=== PATIENT | male | born 1935 | race Caucasian/White ===

== ENCOUNTER 2023-02-03 19:02 | Outpatient (CLI) | payer MEDICARE, BC, SELFPAY | END 2023-02-03 19:03 | disposition home or self-care (01) | LOC: AMB 02-05 06:35 | PROVIDERS: PCP Surgery; Visit Provider Emergency Medicine | DX: R06.09 Other forms of dyspnea (principal) | CPT/HCPCS: A0425; A0427 ==

== ENCOUNTER 2023-02-03 19:27 | Emergency (ER) | payer MEDICARE, BC, SELFPAY ==
[2023-02-03] VITALS (8 sets, daily range): BP systolic 107–134; BP diastolic 54–96; PULSE 75–93; RESP 16; TEMP 36.7; O2SAT 88–99; BMI 28.1
--- NOTE | 2023-02-03 19:28 | PC.NURSE ---
at for initial exam.
--- NOTE | 2023-02-03 19:42 | CRLHL7_ITS ---
For Patients: As a result of the Cures Act, medical imaging exams and procedure reports are released immediately into your electronic medical record. You may view this report before your referring provider. If you have questions, please contact your health care provider. INDICATION: Shortness of breath. TECHNIQUE: Chest 1 view. COMPARISON: March 07, 2019. FINDINGS: Cardiovascular and mediastinum: Cardiomediastinal silhouette is within normal limits. Left chest wall pacer with leads extending to the right atrium and ventricle. Calcific atherosclerosis of the aorta. Lungs and pleural spaces: Bibasilar linear opacity likely atelectasis. Mildly low lung volumes. No evidence of pleural effusion. No pneumothorax identified. Bones and soft tissues: Unremarkable for age. IMPRESSION: No acute cardiopulmonary process identified. No significant interval change. Dictated by Devante Martinez MD @ 02/03/2023 8:48:12 PM (Electronically Signed)
[2023-02-03 20:10] LABS: HCO3 VBG 29 mmol/L (21-28); PCO2 VBG 32 mmHG (40-50); PO2 VBG 29.5 mmHG (25-47); pH VBG 7.564 (7.32-7.43)
[2023-02-03 20:11] LABS: Lactate Sepsis w/Reflex* 3.2 mmol/L (0.5-1.9)
--- NOTE | 2023-02-03 20:11 | ED_ITS ---
HPI - General Adult General Date Seen: 02/03/23 Chief complaint: Back Injury/Pain Stated complaint: Chest pain Time Seen by Provider: 02/03/23 19:31 Source: patient, EMS and old records reviewed Mode of arrival: EMS Limitations: no limitations History of Present Illness HPI narrative: Patient is an 87-year-old male who presents via EMS for shortness of breath. His daughter or granddaughter called 911 secondary to shortness of breath. He says that after the paramedics got there he did develop some right sided back pain which was not pleuritic. Medics reported a blood pressure in the right arm of 120 and in the left of 160 systolic. He has not had fever cough extremity swelling or pain. He tells me that he was hospitalized last week at [facility] for shortness of breath. He does have a history of he says a heart attack associated with a bout of pneumonia. He does not have any stents and has not had cardiac surgery aside from pacemaker placement. He does have a history of atrial fibrillation and is maintained on Xarelto. 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 He says since starting on that medication he has been significantly better, in fact says it was like changing. However over the past couple of months he says he has been having bouts of shortness of breath again. He says last week he had a coronary CT after troponins were elevated for about 24 hours, they stabilized at that time any says that the coronary CT was unchanged and so ultimately they decided that his heart was okay. 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 He has remote history of smoking, quit 50 years ago. Has a history of bronchiectasis and pulmonary asbestosis. Allergies reviewed. Related Data Home Medications Medication Instructions Recorded Confirmed albuterol sulfate 90 mcg/actuation inhalation 02/03/23 aerosol inhaler budesonide 0.25 mg/2 mL suspension mg 02/03/23 for nebulization diltiazem HCl 120 mg 120 mg PO DAILY 02/03/23 02/03/23 capsule,extended release 24 hr finasteride 5 mg tablet 5 mg PO QAM 02/03/23 02/03/23 fluticasone 500 mcg-salmeterol 50 1 ea inhalation BID 02/03/23 02/03/23 mcg/dose blistr powdr for inhalation (Advair Diskus) ipratropium 0.5 mg-albuterol 3 mg 3 ml inhalation Q6H PRN dyspnea 02/03/23 02/03/23 (2.5 mg base)/3 mL nebulization soln ketorolac 0.5 % eye drops 1 drp ophthalmic (eye) QID 02/03/23 02/03/23 montelukast 10 mg tablet 10 mg PO QPM 02/03/23 02/03/23 omeprazole 20 mg capsule,delayed 20 mg PO DAILY 02/03/23 02/03/23 release potassium chloride 10 mEq 20 meq PO BID 02/03/23 02/03/23 tablet,extended release(part/cryst) rivaroxaban 20 mg tablet (Xarelto) 20 mg PO QPM 02/03/23 02/03/23 sertraline 50 mg tablet 50 mg PO DAILY 02/03/23 02/03/23 torsemide 20 mg tablet mg PO 02/03/23 Allergies Allergy/AdvReac Type Severity Reaction Status Date / Time bupivacaine Allergy Verified 02/03/23 19:57 levetiracetam AdvReac Verified 02/03/23 19:57 oxycodone AdvReac Verified 02/03/23 19:57 rosuvastatin AdvReac Verified 02/03/23 19:57 simvastatin AdvReac Verified 02/03/23 19:57 hydrocodone-acetaminophen AdvReac Uncoded 02/03/23 19:57 Review of Systems Status of ROS: Reports: 10 or more systems reviewed and unremarkable except as noted in History and below [facility] Social History Non-prescribed substance use: denies use Exam Narrative: Exam Narrative: Vital signs as noted above. In general, an alert, nontoxic elderly male, breathing initially somewhat labored. Head: Normocephalic, atraumatic. Eyes: Pupils are equal reactive. Extraocular movements are full. Conjunctivae are normal. ENT: Mucous membranes are moist. Throat is normal. Neck: Supple without lymphadenopathy. Heart: Regular rate and rhythm. No murmur or rub. Lungs: Clear bilaterally. No wheezing, good air movement bilaterally. He is breathing somewhat hard but oxygen levels are normal, he is not significantly tachypneic. Abdomen: Protuberant soft. Nontender to palpation. Extremities: Well perfused. No edema. No calf tenderness. Pulses intact. Neurologic: Patient is alert and oriented to person and place. Speech is fluent. Face is symmetric. Moves all extremities equally. Affect: Normal. Skin: Warm and dry. Well perfused. Const: Vital Signs, click to edit/add: Vital Signs - 24 hr 02/03/23 19:38 02/03/23 19:42 02/03/23 20:36 Temperature 98.1 F Pulse Rate 82 Pulse Rate [Pulse Oximeter] 93 Respiratory Rate 16 16 Blood Pressure 107/96 H Blood Pressure [Le ft Upper Arm] 134/64 Blood Pressure [Ri ght Upper Arm] 132/73 Pulse Oximetry 99 96 88 Oxygen Delivery Me thod Room Air 02/03/23 20:41 02/03/23 21:02 02/03/23 21:21 Temperature Pulse Rate 77 80 79 Pulse Rate [Pulse Oximeter] Respiratory Rate 16 16 16 Blood Pressure 112/62 116/63 114/54 L Blood Pressure [Le ft Upper Arm] Blood Pressure [Ri ght Upper Arm] Pulse Oximetry 94 95 93 Oxygen Delivery Me thod Documenting provider has reviewed patient's vital signs: yes Course Course ED Course: On arrival, patient had an EKG which shows a paced rhythm. As mentioned he seems like his breathing is little labored but his lungs are clear, his oxygen levels are 100%. To trying get records from [place] from last week, troponin initially was 0, will repeat in a couple of hours. Planned for D-dimer, chest x-ray, other basic labs to see if we can find anything acute going on today. It does appear that some of this has been a chronic intermittent over the past couple of months without a clear diagnosis found and it may be that we will just need to have him follow up with his wheel truing machine tender. I do wonder if steroids might be helpful for him. Workup here is really unrevealing. His lactate was elevated at 3.2 but after L normal saline it is normal at 1.3. Notable labs include a normal white blood cell count, hemoglobin of 11.3, venous gas shows a pH of 7.56 with a pCO2 of 32 and bicarb of 29 consistent with partially compensated respiratory alkalosis. His respiratory status has returned to normal without any specific therapy. He initially requested a neb but then said he was feeling better and declined any treatment. He is not tachypneic and there is no increased work of breathing at this time. Metabolic panel is normal, LFTs are unremarkable. CRP 0.9, BNP 203. TSH is normal at 2.3. Initial troponin 0, 2 hour troponin is 0.01, EKG showed a paced rhythm. Chest x-ray unremarkable by my review, final radiology read as follows:FINDINGS: Cardiovascular and mediastinum: Cardiomediastinal silhouette is within normal limits. Left chest wall pacer with leads extending to the right atrium and ventricle. Calcific atherosclerosis of the aorta. Lungs and pleural spaces: Bibasilar linear opacity likely atelectasis. Mildly low lung volumes. No evidence of pleural effusion. No pneumothorax identified. Bones and soft tissues: Unremarkable for age. IMPRESSION: No acute cardiopulmonary process identified. No significant interval change. Overall, I do not have a clear explanation for his symptoms, he has had multiple bouts now of this shortness of breath over the past couple of months which he says tends to resolve without any specific treatment. I a asked about whether he want to try a course of steroids, his daughter is here now, she says she would prefer just to check with his wheel truing machine tender tomorrow and I certainly think that is reasonable. He says that the last time he saw his wheel truing machine tender he was doing well on the Nucala but did say that she had a couple other medications that she thought might be a better option for him, so they will talk with her about that. Return any time for acute worsening otherwise pulmonology follow-up in primary care follow-up as planned. Vital Signs Vital signs: Initial Vital Signs Temperature 98.1 F 02/03/23 19:38 Temperature Source Temporal Artery Scan 02/03/23 19:38 Pulse Rate 93 02/03/23 19:38 Respiratory Rate 16 02/03/23 19:38 Blood Pressure 132/73 02/03/23 19:38 Blood Pressure Mean 92 02/03/23 19:38 Blood Pressure Position Supine 02/03/23 19:38 Pulse Oximetry 99 02/03/23 19:38 Oxygen Delivery Method Room Air 02/03/23 19:38 Vital Signs Temperature 98.1 F 02/03/23 19:38 Pulse Rate 93 02/03/23 19:38 Respiratory Rate 16 02/03/23 19:38 Blood Pressure 132/73 02/03/23 19:38 Pulse Oximetry 99 02/03/23 19:38 Oxygen Delivery Method Room Air 02/03/23 19:38 Temperature 98.1 F 02/03/23 19:38 Pulse Rate 79 02/03/23 21:21 Respiratory Rate 16 02/03/23 21:21 Blood Pressure 114/54 L 02/03/23 21:21 Pulse Oximetry 93 02/03/23 21:21 Oxygen Delivery Method Room Air 02/03/23 19:38 Medications Administered Medications: Generic Name Dose Route Start Last Admin Trade Name Freq PRN Reason Stop Dose Admin Albuterol/Ipratropium 1 neb 02/03/23 20:22 02/03/23 21:31 Iprat-Albut 0.5-2.5 Mg/3 Ml Neb IH 02/03/23 20:23 1 neb ONCE ONE Administration Sodium Chloride 1,000 mls @ 1,000 mls/hr 02/03/23 20:45 02/03/23 21:31 0.9 % Sodium Chloride 1000 Ml IV 02/03/23 21:44 1,000 mls/hr .Q1H SEBASTIAN Administration Medical Decision Making Lab Data Labs: Lab Results 02/03/23 02/03/23 02/03/23 Range/Units 19:38 19:43 21:19 WBC 9.61 (4.50-11.00) K/uL RBC 4.65 (4.30-5.90) m/uL Hgb 11.3 L (13.5-17.5) gm/dL Hct 36.5 L (37.0-53.0) % MCV 79 L (80-100) fL MCH 24 L (26-34) pg MCHC 31 L (32-36) gm/dL RDW Coeff of [place] 17.1 H (11.5-15.5) % Plt Count 285 (140-440) K/uL Neut % (Auto) 68.3 (42.0-72.0) % Lymph % (Auto) 21.3 (20-44) % [place] % (Auto) 9.7 (0.0-11.0) % Eos % (Auto) 0.2 (0.0-7.0) % Baso % (Auto) 0.3 (0.0-3.0) % Neut # (Auto) 6.56 (1.7-7.0) K/uL Lymph # (Auto) 2.05 (0.90-2.90) K/uL [place] # (Auto) 0.90 (0.00-0.90) K/UL Eos # (Auto) 0.02 (0.00-0.50) K/uL Baso # (Auto) 0.03 (0.00-0.30) K/uL Abs Immat Gran (auto) 0.02 (0.00-0.30) K/uL Imm/Tot Granulo (auto) 0.2 % D-Dimer Quant (PE/DVT) 0.39 (0.00-0.50) ug/ml VBG pH 7.564 H (7.32-7.43) VBG pCO2 32 L (40-50) mmHG VBG pO2 29.5 (25-47) mmHG VBG HCO3 29 H (21-28) mmol/L Sodium 136 (135-149) mmol/L Potassium 3.8 (3.6-5.1) mmol/L Chloride 98 (96-114) mmol/L Carbon Dioxide 25 (20-32) mmol/L Anion Gap 13 (7-15) mEq/L BUN 28 (7-30) mg/dL Creatinine 1.1 (0.5-1.5) mg/dL Estimated Creat Clear 43.50 Estimated GFR 65 ml/min Glucose 89 (60-115) mg/dL Lactate 3.2 H 1.3 (0.5-1.9) mmol/L Calcium 9.6 (8.4-10.6) mg/dL Total Bilirubin 0.2 (0.1-1.5) mg/dL Direct Bilirubin 0.0 (0.0-0.5) mg/dL AST 32 (12-35) U/L ALT 28 (4-50) U/L Alkaline Phosphatase 89 (40-150) U/L C-Reactive Protein 0.9 (0.5-1.0) mg/dL NT-Pro-B Natriuret Pep 203 pg/mL Total Protein 7.2 (6.0-8.3) g/dL Albumin 4.3 (3.3-5.0) g/dL TSH 2.300 (0.270-4.200) uIU/mL POC Troponin I 0.00 L (0.01-0.04) ng/ml 02/03/23 Range/Units 21:45 WBC (4.50-11.00) K/uL RBC (4.30-5.90) m/uL Hgb (13.5-17.5) gm/dL Hct (37.0-53.0) % MCV (80-100) fL MCH (26-34) pg MCHC (32-36) gm/dL RDW Coeff of [place] (11.5-15.5) % Plt Count (140-440) K/uL Neut % (Auto) (42.0-72.0) % Lymph % (Auto) (20-44) % [place] % (Auto) (0.0-11.0) % Eos % (Auto) (0.0-7.0) % Baso % (Auto) (0.0-3.0) % Neut # (Auto) (1.7-7.0) K/uL Lymph # (Auto) (0.90-2.90) K/uL [place] # (Auto) (0.00-0.90) K/UL Eos # (Auto) (0.00-0.50) K/uL Baso # (Auto) (0.00-0.30) K/uL Abs Immat Gran (auto) (0.00-0.30) K/uL Imm/Tot Granulo (auto) % D-Dimer Quant (PE/DVT) (0.00-0.50) ug/ml VBG pH (7.32-7.43) VBG pCO2 (40-50) mmHG VBG pO2 (25-47) mmHG VBG HCO3 (21-28) mmol/L Sodium (135-149) mmol/L Potassium (3.6-5.1) mmol/L Chloride (96-114) mmol/L Carbon Dioxide (20-32) mmol/L Anion Gap (7-15) mEq/L BUN (7-30) mg/dL Creatinine (0.5-1.5) mg/dL Estimated Creat Clear Estimated GFR ml/min Glucose (60-115) mg/dL Lactate (0.5-1.9) mmol/L Calcium (8.4-10.6) mg/dL Total Bilirubin (0.1-1.5) mg/dL Direct Bilirubin (0.0-0.5) mg/dL AST (12-35) U/L ALT (4-50) U/L Alkaline Phosphatase (40-150) U/L C-Reactive Protein (0.5-1.0) mg/dL NT-Pro-B Natriuret Pep pg/mL Total Protein (6.0-8.3) g/dL Albumin (3.3-5.0) g/dL TSH (0.270-4.200) uIU/mL POC Troponin I 0.01 (0.01-0.04) ng/ml Discharge Plan Discharge Clinical Impression: Breath shortness Patient Disposition: Home, Self-Care Condition: Improved Instructions: Asthma (ED) Additional Instructions: Follow-up with your wheel truing machine tender as discussed. Return any time for acute worsening or new symptoms. Prescriptions: No Action ipratropium-albuterol 0.5 mg-3 mg(2.5 mg base)/3 mL solution for nebulization 3 ml INHALATION Q6H PRN (Reason: dyspnea) torsemide 20 mg tablet PO ketorolac 0.5 % drops 1 drp ophthalmic (eye) QID fluticasone propion-salmeterol [Advair Diskus] 500-50 mcg/dose blister with device 1 ea inhalation BID budesonide 0.25 mg/2 mL suspension for nebulization Patient Comments: NEBULIZE CONTENTS OF 2 VIALS TWICE A DAY - THEN RINSE MOUTH OFF AFTER WITH WATER omeprazole 20 mg capsule,delayed release(DR/EC) 20 mg PO DAILY diltiazem HCl 120 mg capsule,extended release 24hr 120 mg PO DAILY montelukast 10 mg tablet 10 mg PO QPM albuterol sulfate 90 mcg/actuation HFA aerosol inhaler inhalation sertraline 50 mg tablet 50 mg PO DAILY finasteride 5 mg tablet 5 mg PO QAM potassium chloride 10 mEq tablet,ER particles/crystals 20 meq PO BID Xarelto 20 mg tablet 20 mg PO QPM Follow Up/Referrals: Vijay Lopez MD [Primary Care Provider] - Stand Alone Forms: FamilyID Info Instructions
[2023-02-03 20:15] LABS: Basophils Absolute Auto 0.03 K/uL (0.00-0.30); Basophils Percent Auto 0.3 % (0.0-3.0); Eosinophils Absolute Auto 0.02 K/uL (0.00-0.50); Eosinophils Percent Auto 0.2 % (0.0-7.0); Hematocrit 36.5 % (37.0-53.0); Hemoglobin* 11.3 gm/dL (13.5-17.5); Immature Granulocytes Abs Auto 0.02 K/uL (0.00-0.30); Immature Granulocytes Pct Auto 0.2 %; Lymphocytes Absolute Auto 2.05 K/uL (0.90-2.90); Lymphocytes Percent Auto 21.3 % (20-44); Mean Corpuscular HGB Conc 31 gm/dL (32-36); Mean Corpuscular Hemoglobin 24 pg (26-34); Mean Corpuscular Volume 79 fL (80-100); Monocytes Percent Auto 9.7 % (0.0-11.0); Neutrophils Absolute Auto 6.56 K/uL (1.7-7.0); Neutrophils Percent Auto 68.3 % (42.0-72.0); Platelet Count* 285 K/uL (140-440); RDW Coefficient of Variation % 17.1 % (11.5-15.5); Red Blood Count 4.65 m/uL (4.30-5.90); White Blood Count* 9.61 K/uL (4.50-11.00)
[2023-02-03 20:17] LABS: Slide Review Reflex No
[2023-02-03 20:27] LABS: Albumin* 4.3 g/dL (3.3-5.0)
[2023-02-03 20:28] LABS: Chloride* 98 mmol/L (96-114); Potassium* 3.8 mmol/L (3.6-5.1); Sodium* 136 mmol/L (135-149)
[2023-02-03 20:30] LABS: Alanine Aminotransferase* 28 U/L (4-50); Alkaline Phosphatase* 89 U/L (40-150); Aspartate Amino Transferase* 32 U/L (12-35); Bilirubin Total* 0.2 mg/dL (0.1-1.5); D Dimer Quantitative* 0.39 ug/ml (0.00-0.50); Total Protein* 7.2 g/dL (6.0-8.3)
[2023-02-03 20:31] LABS: Anion Gap 13 mEq/L (7-15); Blood Urea Nitrogen* 28 mg/dL (7-30); Carbon Dioxide* 25 mmol/L (20-32); Creatinine* 1.1 mg/dL (0.5-1.5); Estimated Glomerular Filt Rate 65 ml/min
[2023-02-03 20:32] LABS: Calcium* 9.6 mg/dL (8.4-10.6); Glucose* 89 mg/dL (60-115)
[2023-02-03 20:34] LABS: C Reactive Protein* 0.9 mg/dL (0.5-1.0)
[2023-02-03 20:41] LABS: NT Pro B Type NatriureticPept* 203 pg/mL
[2023-02-03 21:25] LABS: Lactate* 1.3 mmol/L (0.5-1.9)
[2023-02-03] MEDS: 0.9 % SODIUM CHLORIDE 1000 ml 1,000 ML IV (21:31)
[2023-02-03] MEDS: IPRAT-ALBUT 0.5-2.5 MG/3 ML NEB 1 NEB IH (21:31)
[2023-02-03 21:32] LABS: Troponin, Point-of-Care* 0.01 ng/ml (0.01-0.04)
--- NOTE | 2023-02-03 22:31 | PC.NURSE ---
patient DC accompanied by daughter, no further questions to DC instructions. patient RR even and unlabored, no c/o pain
[2023-02-03 23:00] LABS: PCR FLU A Negative PCR FLU A (Negative); PCR FLU B Negative PCR FLU B (Negative); PCR RSV Negative PCR RSV (Negative)
[2023-02-03 23:01] LABS: SARS PCR* Negative SARS-CoV-2 (Negative)
== END 2023-02-03 22:22 | disposition home or self-care (01) ==
PROVIDERS: Emergency Provider Emergency Medicine; PCP Surgery
DX: R06.02 Shortness of breath (principal); J45.909 Unspecified asthma, uncomplicated
CPT/HCPCS: 36415; 71045; 80048; 80076; 82803; 83605; 83880; 84443; 84484; 85025; 85379; 86140; 87631; 94640; 94761; 99284; J7030

== ENCOUNTER 2023-05-10 22:15 | Outpatient (CLI) | payer MEDICARE, BC, SELFPAY | END 2023-05-10 22:16 | disposition home or self-care (01) | LOC: AMB 05-19 21:59 | PROVIDERS: PCP Surgery; Visit Provider Student in an Organized Health Care Education/Training Program | DX: R07.89 Other chest pain (principal) | CPT/HCPCS: A0425; A0427 ==

== ENCOUNTER 2023-08-26 01:31 | Outpatient (CLI) | payer MEDICARE, BC, SELFPAY | END 2023-08-26 01:32 | disposition home or self-care (01) | LOC: AMB 08-31 19:43 | PROVIDERS: PCP Surgery; Visit Provider Internal Medicine | DX: R50.9 Fever, unspecified (principal) | CPT/HCPCS: A0998 ==

== ENCOUNTER 2023-10-07 00:39 | Outpatient (CLI) | payer MEDICARE, BC, SELFPAY | END 2023-10-07 00:40 | disposition home or self-care (01) | LOC: AMB 10-09 08:31 | PROVIDERS: PCP Surgery; Visit Provider Internal Medicine | DX: U07.1 COVID-19 (principal) | CPT/HCPCS: A0425; A0427 ==

== ENCOUNTER 2024-05-08 12:31 | Outpatient (REF) | payer MEDICARE, BC, SELFPAY ==
[2024-05-08 13:05] LABS: Chloride* 98 mmol/L (96-114); Potassium* 4.4 mmol/L (3.6-5.1); Sodium* 136 mmol/L (135-149)
[2024-05-08 13:08] LABS: Anion Gap 7 mEq/L (7-15); Blood Urea Nitrogen* 30 mg/dL (7-30); Calcium* 9.3 mg/dL (8.4-10.6); Carbon Dioxide* 31 mmol/L (20-32); Estimated Glomerular Filt Rate 72 ml/min; Glucose* 86 mg/dL (60-115)
== END 2024-05-08 12:32 | disposition home or self-care (01) ==
LOC: NPINS 12:31
PROVIDERS: PCP Surgery; Visit Provider Nurse Practitioner Gerontology
DX: I50.9 Heart failure, unspecified (principal)
CPT/HCPCS: 80048

== ENCOUNTER 2024-05-22 11:53 | Outpatient (REF) | payer MEDICARE, BC, SELFPAY ==
[2024-05-22 13:28] LABS: Chloride* 102 mmol/L (96-114); Sodium* 136 mmol/L (135-149)
[2024-05-22 13:31] LABS: Blood Urea Nitrogen* 31 mg/dL (7-30); Creatinine* 1.1 mg/dL (0.5-1.5); Estimated Glomerular Filt Rate 65 ml/min
[2024-05-22 13:32] LABS: Anion Gap 6 mEq/L (7-15); Carbon Dioxide* 28 mmol/L (20-32); Glucose* 106 mg/dL (60-115)
[2024-05-22 13:44] LABS: NT Pro B Type NatriureticPept* 181 pg/mL
== END 2024-05-22 11:54 | disposition home or self-care (01) ==
LOC: NPINS 11:53
PROVIDERS: PCP Surgery; Visit Provider Nurse Practitioner Gerontology
DX: I50.9 Heart failure, unspecified (principal)
CPT/HCPCS: 80048; 83880

== ENCOUNTER 2024-09-18 10:41 | Outpatient (REF) | payer MEDICARE, BC, SELFPAY ==
--- OUTSIDE RECORDS SUMMARY | 2024-08-21 08:17 | XMS_ITS | Encounter Summary ---
Author Organization [facility] Address [address] [place] [address] Care Team Providers Care Day Care Aide Name Role Phone Elsewhere, Pcp Primary Care Provider Unavailabl e Encounter Details Date Type Department Care Team (Latest Contact Info) Description 08/21/2024 8:17 AM CDT - 08/21/2024 11:59 PM CDT Hospital Encounter Department of Cardiovascular Diseases in [place], [place] [address] [place] [phone] Carroll Brito M.D. [address] [place] [address] Discharge Disposition: Home or Self Care Social History Tobacco Use Types Packs/Day Years Used Date Smoking Tobacco: Former Cigarettes 2 10 0 02/15/1956 - 02/14/1966 Smokeless Tobacco: Former Chew Quit: 02/14/1966 Alcohol Use Standard Drinks/Week Comments No 0 (1 standard drink = 0.6 oz pur e alcohol) [facility] Utilities Answer Date Recorded In the past 12 months has e electric, gas, oil, or water company threatened to shut off services in your home? No 10/07/2023 Humiliation, Afraid, Rape, and Kick questionnair e Answer Date Recorded Within the last year, have y ou been afraid of your partner or ex-partner? No 10/07/2023 Within the last year, have y ou been humiliated or emotionally abused in other ways by your partner or ex-partner? No Within the last year, have y ou been kicked, hit, slapped, or otherwise physically hurt by your partner or ex-partner? No 10/07/2023 Within the last year, have y ou been raped or forced to have any kind of sexual activity by your partner or ex-partner? No 10/07/2023 Hunger Vital Sign Answer Date Recorded Within the past 12 months, y ou worried that your food would run out before you got the money to buy more. Never true 10/07/19 24 Within the past 12 months, t he food you bought just didn't last and you didn't have money to get more. Never true 10/07/2023 PRAPARE - Transportation Answer Date Re corded In the past 12 months, has l ack of transportation kept you from medical appointments or from getting medications? No 09/15 In the past 12 months, has l ack of transportation kept you from meetings, work, or from getting things needed for daily living? No 10/07/2023 Housing Stability Answer Date Recorded What is your living situation today? I have a [facility] place to live 10/07/2023 Education Answer Date Recorded What is the highest level of school you have completed or the highest degree you have received? 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 benzonatate (TESSALON) 200 mg capsule Take 200 mg by mouth 3 (three) times a day as needed for cough. bisacodyL (Dulcolax) 5 mg EC tablet Take 2 tablets (10 mg total) by mouth daily. Please take 2-tablets two days before and another 2-tablets the night before the colonoscopy. 4 tablet 10/11/2023 budesonide (PULMICORT) 0.25 mg/2 mL nebulizer solution Inhale 0.25 mg 2 (two) times a day. 02/15/2023 cholecalciferol (VITAMIN D3) 25 mcg (1,000 Unit) capsule Take 1 capsule (1,000 Units total) by mouth daily. 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 Inject 600 mg under the skin once. Start 300 mg under the skin every 2 weeks 14 days after the 600 mg injection. 6 mL 11 04/12/2024 ferrous sulfate 325 mg (65 mg iron) tablet Take 1 tablet (65 mg of iron total) by mouth every other day. 15 tablet 05/12/2023 finasteride (PROSCAR) 5 mg tablet Take 5 mg by mouth daily. fluticasone furoate-vilanter oL (Breo Ellipta) 100-25 mcg/actuation inhaler Inhale 1 puff once daily. 60 each 3 10/12/2023 ipratropium-albu terol (DUO-NEB) 0.5-2.5 mg/3 mL nebulizer solution Take 3 mL by nebulization 4 (four) times a day as needed for wheezing or shortness of breath. 10/05/2018 loperamide (Imodium A-D) 2 mg tablet Take 2 mg by mouth as needed for diarrhea. magnesium hydroxide 400 mg/5 mL suspension Take 30 mL by mouth as needed. montelukast (SINGULAIR) 10 mg tablet Take 1 tablet by mouth at bedtime. 11/16/2019 multivitamin tablet Take 1 tablet by mouth daily. 30 tablet 03/20/2018 nitroglycerin (NITROSTAT) 0.[address] under the tongue every 5 (five) minutes as needed for chest pain. 06/22/2016 omeprazole (PriLOSEC) [address] capsule Take 20 mg by mouth every morning before breakfast. 12/04/2021 potassium chloride (KLOR-CON M) 10 mEq ER tablet Take 20 mEq by mouth 2 (two) times a day with meals. 08/30/2022 sennosides-docus ate sodium (Senokot-S) 8.6-50 mg per tablet Take 1 tablet by mouth daily. 03/01/2024 sertraline (ZOLOFT) 50 mg tablet Take 50 mg by mouth daily. 12/04/2021 torsemide (DEMADEX) 20 mg tablet take 2 tablets by mouth daily. 60 tablet 06/27/2023 Xarelto 20 mg tablet Take 20 mg by mouth daily. 07/17/2021 documented as of this encounter Plan of Treatment Not on file documented as of this encounter Procedures Procedure Name Priority Date/Time Associated Diagnosis Comments INTERFACED REMOTE DEVICE CHECK Routine 08/21/2024 8:17 AM CDT documented in this encounter Results * CAR CARDIAC DEVICE INTERROGATION (08/21/2024 8:17 AM CDT) Date Time Interrogation Session [id number] [employer] [facility] Type Interrogation Session Remote [facility] Implantable Pulse Generator Exceptional Student Education Aide [employer] [facility] Implantable Pulse Generator Type Pacemaker [facility] Implantable Pulse Generator Model Carly XT DR MRI [id number] [facility] Implantable Pulse Generator Serial Number [id number] [facility] Implantable Pulse Generator Implant Date 20230530 [facility] Battery Remaining Longevity 93.0 mo [facility] Battery Voltage 3.010 [employer] [facility] Battery CLOTH FOLDER MACHINE Trigger 2.625 [employer] [facility] Battery Status OK [facility] [employer] [facility] Shahid Statistic RA Percent Paced 44.79 [employer] [facility] Shahid Statistic RV Percent Paced 99.98 [employer] [facility] Atrial Tachy Statistic AT/AF [place] Percent 0.00 [employer] [facility] Lead Channel Sensing Intrinsic Amplitude 0.750 [facility] Lead Channel Setting Sensing Sensitivity 0.30 [employer] [facility] Lead Channel Impedance Value 380 [facility] Lead Channel Pacing Threshold Amplitude 1.600 [employer] [facility] Lead Channel Pacing Threshold Pulse Width 0.4 [facility] Lead Channel Measurements Date and Time 20240816 [facility] Lead Channel Setting Pacing Amplitude 3.250 [facility] Lead Channel Setting Pacing Pulse Width 0.4 [facility] Lead Channel Setting Sensing Sensitivity 2.80 [facility] Lead Channel Impedance Value 418 [facility] Lead Channel Pacing Threshold Amplitude 1.250 [facility] Lead Channel Pacing Threshold Pulse Width 0.4 [facility] Lead Channel Measurements Date and Time 20240816 [facility] Lead Channel Setting Pacing Amplitude 2.500 [facility] Lead Channel Setting Pacing Pulse Width 0.4 [facility] Shahid Setting Mode (NBG Code) DDDR [facility] Shahid Setting Lower Rate Limit 70 [facility] Shahid Setting AT Mode Switch Rate 150 [facility] Shahid Setting Maximum Tracking Rate 120 [facility] Shahid Setting Maximum Sensor Rate 120 [facility] Shahid Setting PAV Delay 150 [facility] Shahid Setting MEGHAN Delay 120 [facility] Lead Channel Setting Sensing Polarity Bipolar [facility] Lead Channel Setting Sensing Polarity Bipolar [facility] Lead Channel Setting Pacing Polarity Bipolar [facility] Lead Channel Setting Pacing Polarity Bipolar [facility] Lead Channel Pacing Threshold Polarity Bipolar [facility] Lead Channel Pacing Threshold Polarity Bipolar [facility] Zone Setting Type Category AT/AF [facility] Murj Rate 1 150 [facility] Murj Therapies Some Rx Off [facility] Zone Setting Status Monitor [facility] Murj Zone ID 2 [facility] Zone Setting Type Category VT [facility] Murj Rate 1 167 [facility] Zone Setting Status ENABLED F[facility] Murj Zone ID 6 [facility] Murj Zone ID 1 [facility] Murj Zone ID 1 [facility] Implantable Lead Exceptional Student Education Aide [employer]onic [facility] Implantable Lead Model 5024M CapSure SP [facility] Implantable Lead Location Right Ventricle [facility] Implantable Lead Connection Status Connected [facility] Implantable Lead Serial Number [id number] [facility] Implantable Lead Implant Date [id number] [facility] Implantable Lead Special Function Lead length: 52.00 cm [facility] Implantable Lead Exceptional Student Education Aide Medtronic [facility] Implantable Lead Model 5524M CapSure SP [facility] Implantable Lead Location Right Atrium [facility] Implantable Lead Connection Status Connected [facility] Implantable Lead Serial Number [id number] [facility] Implantable Lead Implant Date [id number] [facility] Implantable Lead Special Function Lead length: 45.00 cm [facility] Anatomical Region Laterality Modality Other 08/21/2024 8:18 AM CDT Impressions 08/21/2024 8:18 AM CDT Encounter Impression: Title: Normal Remote: No Events * Normal Device Function * Alerts or events: None * Battery: OK, 7.75 yrs * Sensing, impedance and thresholds reviewed * Programmed parameters reviewed * Presenting EGM: A paced, V paced 70 bpm. * Heart Rate Histograms reviewed * No significant changes noted Plan: Routine remote follow up and as needed. This patient underwent device interrogation. I agree that the device interrogation was medically indicated to provide appropriate care and continue routine device interrogations as indicated. Encounter Summary: This report includes 1 transmission that was received on 2024-08-17. Battery, lead impedance, sensing amplitude and pacing threshold data was reviewed. Narrative Procedure Note Carroll Brito M.D. - 08/21/2024 IMPRESSION: Encounter Impression: Title: Normal Remote: No Events * Normal Device Function * Alerts or events: None * Battery: OK, 7.75 yrs * Sensing, impedance and thresholds reviewed * Programmed parameters reviewed * Presenting EGM: A paced, V paced 70 bpm. * Heart Rate Histograms reviewed * No significant changes noted Plan: Routine remote follow up and as needed. This patient underwent device interrogation. I agree that the deviceinterrogation was medically indicated to provide appropriate care andcontinue routine device interrogations as indicated. Encounter Summary: This report includes 1 transmission that was receivedon 2024-08-17. Battery, lead impedance, sensing amplitude and pacingthreshold data was reviewed. Carroll Brito M.D. CV IMPLANTABLE CARDIAC DEVICE Final Result documented in this encounter Visit Diagnoses Not on filedocumented in this encounter Care Teams Day Care Aide Relationship Specialty Start Date End Date Elsewhere, Pcp PCP - General Family Medicine 01/16/18 documented as of this encounter
[2024-09-18 12:45] LABS: Hematocrit 41.9 % (37.0-53.0); Hemoglobin* 13.4 gm/dL (13.5-17.5); Immature Granulocytes Abs Auto 0.02 K/uL (0.00-0.30); Immature Granulocytes Pct Auto 0.2 %; Lymphocytes Absolute Auto 1.92 K/uL (0.90-2.90); Mean Corpuscular HGB Conc 32 gm/dL (32-36); Mean Corpuscular Hemoglobin 29 pg (26-34); Mean Corpuscular Volume 92 fL (80-100); RDW Coefficient of Variation % 14.4 % (11.5-15.5); Red Blood Count 4.57 m/uL (4.30-5.90); White Blood Count* 8.08 K/uL (4.50-11.00)
[2024-09-18 12:48] LABS: Slide Review Reflex No
[2024-09-18 13:03] LABS: Chloride* 102 mmol/L (96-114); Sodium* 137 mmol/L (135-149)
[2024-09-18 13:04] LABS: Potassium* 4.1 mmol/L (3.6-5.1)
[2024-09-18 13:07] LABS: Anion Gap 7 mEq/L (7-15); Blood Urea Nitrogen* 26 mg/dL (7-30); Calcium* 9.3 mg/dL (8.4-10.6); Carbon Dioxide* 28 mmol/L (20-32); Creatinine* 1.1 mg/dL (0.5-1.5); Estimated Glomerular Filt Rate 65 ml/min; Glucose* 84 mg/dL (60-115)
--- OUTSIDE RECORDS SUMMARY | 2024-09-19 00:16 | XMS_ITS | Encounter Summary ---
Author Organization [facility] Address [address] [place] [id number] Care Team Providers Care Wood Strip Block Floor Installer Name Role Phone Elsewhere, Pcp Primary Care Provider Unavailabl e Reason for Visit * Reason Onset Date Comments Phone call from daughter 09/10/2024 Encounter Details Date Type Department Care Team (Latest Contact Info) Description 09/10/2024 Clinical Communication Division of Pulmonary Medicine in [place], [place] [address] [place] [address] Lilli Moore M.D. [address] [place] [address] Phone call from daughter Social History Tobacco Use Types Packs/Day Years Used Date Smoking Tobacco: Former Cigarettes 2 10 0 02/15/1956 - 02/14/1966 Smokeless Tobacco: Former Chew Quit: 02/14/1966 Alcohol Use Standard Drinks/Week Comments No 0 (1 standard drink = 0.6 oz pur e alcohol) [facility] Utilities Answer Date Recorded In the past [...] your living situation today? I have a [employer] place to live 10/07/2023 Education Answer Date Recorded What is the highest level of school you have completed or the highest degree you have received? 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 Does this affect insurance? documented in this encounter Plan of Treatment Not on file documented as of this encounter Visit Diagnoses Not on filedocumented in this encounter Care Teams Wood Strip Block Floor Installer Relationship Specialty Start Date End Date Elsewhere, Pcp PCP - General Family Medicine 01/16/18 documented as of this encounter
--- OUTSIDE RECORDS SUMMARY | 2024-09-19 00:16 | XMS_ITS | Encounter Summary ---
Author Organization [facility] Address [address] [place] [address] Care Team Providers Care Regional Telecommunications Specialist Name Role Phone Elsewhere, Pcp Primary Care Provider Unavailabl e Encounter Details Date Type Department Care Team (Late st Contact Info) Description 09/11/2024 Clinical Communication Division of Pulmonary Medicine in [place], [place] [address] [place] [phone] Lilli Moore M.D. [address] [place] [phone] Social History Tobacco Use Types Packs/Day Years Used Date Smoking Tobacco: Former Cigarettes 2 10 0 02/15/1956 - 02/14/1966 Smokeless Tobacco: Former Chew Quit: 02/14/1966 Alcohol Use Standard Drinks/Week Comments No 0 (1 standard drink = 0.6 oz pur e alcohol) [facility] Utilities Answer Date Recorded In the past [...] your living situation today? I have a [facility] place to live 10/07/2023 Education Answer Date Recorded What is the highest level of school you have completed or the highest degree you have received? GED or equivalent 06/2019 Sex and Gender Information Value Date Recorded Sex Assigned at Male 07/19/2017 9:08 AM CDT Legal Sex Male 7:31 AM SOUND PERSON Gender Identity Male 07/19/2017 9:08 AM CDT Sexual Orientation Straight 07/19/2017 9: 08 AM CDT Occupation Industry Job Start Date Job End Date Retired Not on file Not on file Not on file documented as of this encounter Miscellaneous Notes * Telephone Encounter - Kya Tamayo - 09/11/2024 4:04 PM CDT Pulmonary Note: Call Message Caller: Outside Facility: Aline Arredondo Office: [phone] Message: Wondering if the [employer]el[employer] is providing Cecil a benefit or one that could be without? Action Requested: Phone call at your convince to go over med question/talk about his care. (Stated not an emergency at all) Additional Notes: Stated how grateful he is for the care you have given Cecil. documented in this encounter Plan of Treatment Not on file documented as of this encounter Visit Diagnoses Not on filedocumented in this encounter Care Teams Regional Telecommunications Specialist Relationship Specialty Start Date End Date Elsewhere, Pcp PCP - General Family Medicine 01/16/18 documented as of this encounter
--- OUTSIDE RECORDS SUMMARY | 2024-09-19 00:16 | XMS_ITS | Clinical Summary ---
Author Organization [employer] [facility] Address [address] [place] [id number] Care Team Providers Care Commercial Loan Collection Officer Name Role Phone Vijay Lopez MD Primary Care Provider [phone] Allergies Active Allergy Reactions Criticality Noted Date Comments Rosuvastatin Myalgia 04/24/2020 Hydrocodone-Acetaminop hen Anxiety Low 12/08/2009 Levetiracetam Confusion 08/01/2012 confusion Bupivacaine Extrapyramidal Side Effect 07/28/2021 hiccups Oxycodone Anxiety Low 12/08/2009 Simvastatin Myalgia 11/08/2014 Other reaction(s): Muscle Pain (Myalgia) Medications VITAMIN D 2,000 UNIT CAP take one cap daily 0 09/12/19 09 Active VITAMINS A,C,M-SBBQ-HSLIU R (OCUVITE PRESERVISION) 7,160-113-100 zfkg-ep-swgj tablet Take 1 tablet by mouth once daily. 0 12/07/19 19 Active benzonatate (TESSALON) 200 mg capsuleIndicatio ns:Acute cough Take 1 Capsule (200 mg) by mouth 3 times daily if needed for Cough. 30 Capsule 1 10/04/19 24 Active albuterol HFA (PRO-AIR; VENTOLIN; PROVENTIL) 90 mcg/actuation inhalerIndicatio ns:Eosinophilic asthma (HC) Inhale 1-2 Puffs by mouth every 4 hours if needed for Shortness Of Breath or Wheezing. 18 g 03/02/19 25 Active budesonide (PULMICORT RESPULES) 0.25 mg/2 mL neb suspensionIndica tions:Chronic bronchitis, unspecified chronic bronchitis type (HC) Inhale 2 mL (0.25 mg) via a nebulizer two times daily. 240 mL 03/02/19 25 Active dilTIAZem CD (CARDIZEM CD) 120 mg extended release 24 hr capsuleIndicatio ns:Paroxysmal atrial fibrillation (HC) Take 1 Capsule (120 mg) by mouth once daily. 90 Capsule 03/01/19 25 Active finasteride (PROSCAR) 5 mg tabletIndication s:Benign prostatic hyperplasia with weak urinary stream Take 1 Tablet (5 mg) by mouth once daily in the morning. 90 Tablet 2 03/01/19 25 Active montelukast (SINGULAIR) 10 mg tabletIndication s:Eosinophilic asthma (HC) Take 1 Tablet (10 mg) by mouth at bedtime. 30 Tablet 03/01/19 25 Active nitroglycerin (Nitrostat) 0.4 mg sublingual tabletIndication s:Stable angina Place 1 Tablet (0.4 mg) under the tongue every 5 minutes if needed for Chest Pain. 25 Tablet 2 03/01/19 25 Active omeprazole (PRILOSEC) 20 mg Delayed-Release capsuleIndicatio ns:Chronic GERD Take 1 Capsule (20 mg) by mouth once daily before a meal. 30 Capsule 03/01/19 25 Active potassium chloride (KLOR-CON M10) 10 mEq extended-release tablet (part/cryst)Danuta cations:Hypokale rere Take 2 Tablets (20 mEq) by mouth two times daily with meals. 120 Tablet 03/01/19 25 Active rivaroxaban (Xarelto) 20 mg tabletIndication s:Paroxysmal atrial fibrillation (HC) Take 1 Tablet (20 mg) by mouth once daily with evening meal. 90 Tablet 03/02/19 25 Active sertraline (ZOLOFT) 50 mg tabletIndication s:Anxiety Take 1 Tablet (50 mg) by mouth once daily in the morning. 90 Tablet 03/01/19 25 Active Breo Ellipta 100-25 mcg/dose inhalation powderIndication s:Chronic bronchitis, unspecified chronic bronchitis type (HC) Inhale 1 Puff by mouth once daily. 60 Each 2 03/01/19 25 Active albuterol-ipratr opium (DUONEB) (2.5-0.5 mg) in 3 mL NEBULIZATION solutionIndicati ons:Chronic bronchitis, unspecified chronic bronchitis type (HC) Inhale 3 mL via a nebulizer every 6 hours if needed for Shortness Of Breath. 180 mL 03/02/19 25 Active torsemide (DEMADEX) 20 mg tabletIndication s:Bilateral lower extremity edema TAKE 2 TABLETS BY MOUTH DAILY. MAY TAKE 3RD TABLET IF WEIGHT > 3 LBS/DAY >5 LBS OR SWELLING/LEGS 180 Tablet 03/01/19 25 Active ferrous sulfate 325 mg delayed release tabletIndication s:Other iron deficiency anemia Take 1 Tablet (325 mg) by mouth once every other day. 45 Tablet 03/01/19 25 Active Dupixent Syringe 300 mg/2 mL subcutaneous syringe 09/10/19 25 Active CPAPIndications: DANAE (obstructive sleep apnea) RESMED CPAP (E0601) machine for home use at pressure: 15 cm/H2O , Choice of mask (A7030 or A7034) w/full face cushion (A7031) x1-2/mo, nasal cushion (A7032) x2/mo, or nasal pillows (A7033) x 2/mo; Length of Need: 99 months; Frequency of use: Daily 1 Each 09/11/19 25 Active mepolizumab (NUCALA) 100 mg solr subcutaneous vial Inject 1 mL subcutaneous every 4 weeks. 1 mL 10/14/19 19 025 Discontinu ed(*Med complete/R egimen complete/L evel of care change) CPAPIndications: Obstructive sleep apnea CPAP machine for home use at pressure 15 cm/H2O, full face mask x1/3month with a full face cushion x1/mo 1 Each 09/08/19 23 025 Discontinu ed(*Med complete/R egimen complete/L evel of care change) sennosides-docus ate (SENOKOT S) (8.6-50 mg) tabletIndication s:Chronic constipation Take 1 Tablet by mouth once daily. 90 Tablet 1 03/01/19 25 025 Discontinu ed(*Med complete/R egimen complete/L evel of care change) CPAPIndications: DANAE (obstructive sleep apnea) RESMED CPAP (E0601) machine for home use at pressure: 15 cm/H2O , Choice of mask (A7030 or A7034) w/full face cushion (A7031) x1-2/mo, nasal cushion (A7032) x2/mo, or nasal pillows (A7033) x 2/mo; Length of Need: 99 months; Frequency of use: Daily 1 Each 4 08/29/19 25 025 Discontinu ed(Other - add note to specify (E-cancel not sent)) CPAPIndications: DANAE (obstructive sleep apnea) RESMED CPAP (E0601) machine for home use at pressure: 15 cm/H2O , Choice of mask (A7030 or A7034) w/full face cushion (A7031) x1-2/mo, nasal cushion (A7032) x2/mo, or nasal pillows (A7033) x 2/mo; Length of Need: 99 months; Frequency of use: Daily 1 Each 4 08/29/19 25 025 Discontinu ed(Reorder (E-cancel not sent)) Active Problems Problem Noted Date Diagnosed Date Chronic bronchitis, unspecified chronic bronchit is type 06/11/2022 Stable angina 06/11/2022 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 Add Health Care Agents: Yes Health Care Agent(s): Primary Health Care Agent: Marie Perez Relationship:Spouse Phone: h)[phone] w)[phone] Secondary Health Care Agent: Zoraida Ling Relationship: Daughter Phone: h)[phone] c)[phone] Conservator: Jose Perez Relationship: Son Phone: c)[phone] Guardian: Relationship: Phone: Patient has Advance Care Plan Documents (Health Care Directive, POLST): No, Health Care Packet given to patient, family and declined. 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 BPPV (benign paroxysmal positional vertigo) 04/2009 Diastasis recti 10/17/2009 Cardiac pacemaker in situ 07/05/2007 Diaphragmatic hernia without mention of obstruction or gangrene 11/17/2005 Hypertrophy of prostate with out urinary obstruction and other lower urinary tract symptoms (LUTS) 11/17/2005 Other specified forms of hearing loss 11/17/2005 Overview (11/17/2005): using bilateral hearing aids Resolved Problems Problem Noted Date Diagnosed Date Resolved Date 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, 09/18/2024 09/10/2024 11:30 AM CDT Office Visit [facility] [address] [place] [address] Carrillo Tate MD Sleep Follow-up 09/10/2024 Travel 08/28/2024 Telephone [facility] [address] [place] [address] Carrillo Tate MD DME Supply ([facility] ) 08/28/2024 Telephone [facility] [address] [place] [address] Carrillo Tate MD Need Meds (CPAP supply refill) from Last 3 Months Immunizations Immunization Administration Dates Next Due AMB INFLUENZA IIV3 (AGE 65+ YRS) PF (Flu Clinic Only) 12/15/2017 Hepatitis B, Unspecified 04/08/1993,10/22/1992,0 09/10/1992 Influenza, High-dose Inactivated 11/24/2015,12/15,10/22/2013 Influenza, IIV3 (Age >=3 years) 11/21/19 13,11/11/2011,11/26/2010,2009,12/19/2008,12/25/2007,12/08/2006,1 Influenza, Inactivated AIIV4 (Age 65+ Years) Preserv Free 12/03/2021,12/01/2020,11/16/2019 Influenza, Inactivated IIV3 (Age 65+ Years) Preserv Free 11/10/2018,10/19/2016 Pneumococcal Poly,23-Valent (Pneumovax) 02/23/2011,01/19/1996 Pneumococcal conj 13-Valent (Prevnar 13) 09/09/2015 Td (Age >=7 Years) 09/15/2001 Tdap 09/13/2011 Zoster (Zostavax-ZVL, live) 01/31/2012 Family History Medical History Relation Name Comments Heart Disease Father NH x 2/had pac emaker Stroke Father Cancer Mother uterus Heart Disease Mother Relation Name Status Comments Father (Age 82) stroke Mother (Age 93) Social History Tobacco Use Types Packs/Day Years Used Date Smoking Tobacco: Former Cigarettes 1 10 1 957 - 02/14/1966 Smokeless Tobacco: Never Tobacco Cessation:Counseling Given: Yes Alcohol Use Standard Drinks/Week Comments No 0 (1 standard drink = 0.6 oz pur e alcohol) PHQ-2 Answer Date Recorded PHQ-2 TOTAL SCORE 0 02/15/2023 Social Connections Answer Date Recorded Do you often feel lonely or isolated from those around you? 0 05/16/2023 Financial Resource Strain Answer Date R ecorded Difficulty of Paying Living Expenses 3 05/16/2023 Difficulty of Paying Living Expenses Not on file 05/16/2023 Food Insecurity Answer Date Recorded Do you worry your food will run out before you are able to buy more? 1 05/16/2023 Transportation Needs Answer Date Record ed Does lack of transportation keep you from medica l appointments? 1 05/16/2023 Does lack of transportation keep you from work, meetings or getting things that you need? 1 05/16/2023 Housing Stability Answer Date Recorded What is your housing situation today? 1 05/16/2023 Utilities Answer Date Recorded Do you have trouble paying f or utilities (for example, heat, electricity, water, phone)? 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[employer] Gender Identity Not on file Sexual Orientation Not on file Obstetrics History Last Filed Vital Signs Vital Sign Reading Time Taken Comments Blood Pressure 118/68 09/10/2024 11:40 AM CDT Pulse 87 09/10/2024 11:40 AM CDT Temperature 36.7 C (98.1 F) 09/15/2023 12:55 PM CDT Respiratory Rate 18 07/08/2023 4:46 PM CDT Oxygen Saturation 97% 09/10/2024 11:40 AM CDT Inhaled Oxygen Concentration - - Weight 89.4 kg (197 lb 3.2 oz) 09/10/2024 11:40 AM CDT Height 166.5 cm (5' 5.55) 09/10/2024 11:40 AM C DT Body Mass Index 32.27 09/10/2024 11:40 AM CDT Plan of Treatment Health Maintenance Due Date Last Done Comments COVID-19 vaccine series (#1) 1940 RSV vaccine for adults or (1 - 1-dose 75+ series) 05/08/2011 Zoster (shingles) series for age 50+ (1 of 2) 03/27/2012 01/31/2012 Tetanus booster 09/12/2021 09/13/2011, 08/16, 09/15/2001 Depression screening for age 12+ 02/16/2024 02/15/2023, 12/03/2021, 12/04/2020, Additional history exists Medicare Wellness for age 65+ 02/16/2024, 12/03/2021, 12/01/2020, Additional history exists Influenza Vaccine (#1) 2024 , 12/01/2020, 11/16/2019, Additional history exists BMI (ht and wt on same day) for age 18+ 09/10/2025 09/10/2024, 02/15/2023, 09/07/2022, Additional history exists Hepatitis B series for 19+ Completed 04/08, 10/22/1992, 09/10/1992 Pneumococcal series for age 50+ Completed 09/09/2015, 02/23/2011, 01/19/1996 Medical Devices Implanted Type Area Drink Mixer Device Identifier Shelf Expiration Date Model / Serial / Lot Standard Pacemaker Implanted:10/15 by Maverick Freitas MD (Quantity not on file) Standard Pacemaker [id number] / [id number] / Procedures Procedure Name Priority Date/Time Associated Diagnosis Comments SCAN CORRESP-LABORATORY RESULTS 09/18/2024 12:00 AM CDT from Last 3 Months Results * SCAN CORRESP-LABORATORY RESULTS (09/18/2024 12:00 AM CDT) us Scanner OTHER Final Result from Last 3 Months Insurance * Guarantor: Marcos Perez Account Type Relation to Patient Date of Phone Billing Address Personal/Family Self [address] [place] [address] [place] [address] MEDICARE PART B HB ONLY MEDICARE PART A HB ONLY [employer] [place] [place] ONLY [employer] [place] [place] MR PB ONLY MEDICAID * Guarantor: Marcos Perez Account Type Relation to Patient Date of Phone Billing Address Personal/Family Self 1935 [phone] [place] [address] [place] [address] MEDICARE PART B HB ONLY [place] [facility] Advance Directives Documents on File Type Date Recorded Patient City Supervisor Expl 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 Care Teams Commercial Loan Collection Officer Relationship Specialty Start Date End Date Vijay Lopez MD [address] [place] [address] PCP - General Family Practice 08/19/16
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
== END 2024-09-18 10:42 | disposition home or self-care (01) ==
LOC: NPINS 10:41
PROVIDERS: PCP Surgery; Referring Provider Internal Medicine Cardiovascular Disease; Visit Provider Internal Medicine Cardiovascular Disease
DX: I50.30 Unspecified diastolic (congestive) heart failure (principal)
CPT/HCPCS: 80048; 85025

== ENCOUNTER 2024-10-16 14:27 | Outpatient (REF) | payer MEDICARE, BC, SELFPAY ==
[2024-10-16 15:10] LABS: Chloride* 103 mmol/L (96-114); Potassium* 4.6 mmol/L (3.6-5.1); Sodium* 135 mmol/L (135-149)
[2024-10-16 15:13] LABS: Anion Gap 6 mEq/L (7-15); Blood Urea Nitrogen* 21 mg/dL (7-30); Calcium* 9.1 mg/dL (8.4-10.6); Carbon Dioxide* 26 mmol/L (20-32); Creatinine* 1.0 mg/dL (0.5-1.5); Estimated Glomerular Filt Rate 72 ml/min; Glucose* 95 mg/dL (60-115)
--- OUTSIDE RECORDS SUMMARY | 2024-10-17 00:18 | XMS_ITS | Clinical Summary ---
Author Organization [employer] [facility] Address [address] [place] [address] Care Team Providers Care Superannuation Funds Manager Name Role Phone Vijay Lopez MD Primary Care Provider [phone] Allergies Active Allergy Reactions Criticality Noted Date Comments Rosuvastatin Myalgia 04/24/2020 Hydrocodone-Acetaminop hen Anxiety Low 12/08/2009 Levetiracetam Confusion 08/01/2012 confusion Bupivacaine Extrapyramidal Side Effect 07/28/2021 hiccups Oxycodone Anxiety Low 12/08/2009 Simvastatin Myalgia 11/08/2014 Other reaction(s): Muscle Pain (Myalgia) Medications VITAMIN D 2,000 UNIT CAP take one cap daily 0 9 Active VITAMINS A,C,N-BUVT-XGSCNO (OCUVITE PRESERVISION) 7,160-113-100 nlvl-jy-csoh tablet Take 1 tablet by mouth once daily. 0 9 Active benzonatate (TESSALON) 200 mg capsuleIndication s:Acute cough Take 1 Capsule (200 mg) by mouth 3 times daily if needed for Cough. 30 Capsule 1 4 Active albuterol HFA (PRO-AIR; VENTOLIN; PROVENTIL) 90 mcg/actuation inhalerIndication s:Eosinophilic asthma (HC) Inhale 1-2 Puffs by mouth every 4 hours if needed for Shortness Of Breath or Wheezing. 18 g 5 Active budesonide (PULMICORT RESPULES) 0.25 mg/2 mL neb suspensionIndicat ions:Chronic bronchitis, unspecified chronic bronchitis type (HC) Inhale 2 mL (0.25 mg) via a nebulizer two times daily. 240 mL 5 Active dilTIAZem CD (CARDIZEM CD) 120 mg extended release 24 hr capsuleIndication s:Paroxysmal atrial fibrillation (HC) Take 1 Capsule (120 mg) by mouth once daily. 90 Capsule 5 Active finasteride (PROSCAR) 5 mg tabletIndications :Benign prostatic hyperplasia with weak urinary stream Take 1 Tablet (5 mg) by mouth once daily in the morning. 90 Tablet 2 5 Active montelukast (SINGULAIR) 10 mg tabletIndications :Eosinophilic asthma (HC) Take 1 Tablet (10 mg) by mouth at bedtime. 30 Tablet 5 Active nitroglycerin (Nitrostat) 0.4 mg sublingual tabletIndications :Stable angina Place 1 Tablet (0.4 mg) under the tongue every 5 minutes if needed for Chest Pain. 25 Tablet 2 5 Active omeprazole (PRILOSEC) 20 mg Delayed-Release capsuleIndication s:Chronic GERD Take 1 Capsule (20 mg) by mouth once daily before a meal. 30 Capsule 5 Active potassium chloride (KLOR-CON M10) 10 mEq extended-release tablet (part/cryst)Indic ations:Hypokalemi a Take 2 Tablets (20 mEq) by mouth two times daily with meals. 120 Tablet 5 Active rivaroxaban (Xarelto) 20 mg tabletIndications :Paroxysmal atrial fibrillation (HC) Take 1 Tablet (20 mg) by mouth once daily with evening meal. 90 Tablet 5 Active sertraline (ZOLOFT) 50 mg tabletIndications :Anxiety Take 1 Tablet (50 mg) by mouth once daily in the morning. 90 Tablet 5 Active Breo Ellipta 100-25 mcg/dose inhalation powderIndications :Chronic bronchitis, unspecified chronic bronchitis type (HC) Inhale 1 Puff by mouth once daily. 60 Each 2 5 Active albuterol-ipratro pium (DUONEB) (2.5-0.5 mg) in 3 mL NEBULIZATION solutionIndicatio ns:Chronic bronchitis, unspecified chronic bronchitis type (HC) Inhale 3 mL via a nebulizer every 6 hours if needed for Shortness Of Breath. 180 mL 5 Active torsemide (DEMADEX) 20 mg tabletIndications :Bilateral lower extremity edema TAKE 2 TABLETS BY MOUTH DAILY. MAY TAKE 3RD TABLET IF WEIGHT > 3 LBS/DAY >5 LBS OR SWELLING/LEGS 180 Tablet 5 Active ferrous sulfate 325 mg delayed release tabletIndications :Other iron deficiency anemia Take 1 Tablet (325 mg) by mouth once every other day. 45 Tablet 5 Active Dupixent Syringe 300 mg/2 mL subcutaneous syringe 5 Active CPAPIndications:O SA (obstructive sleep apnea) RESMED CPAP (E0601) machine for home use at pressure: 15 cm/H2O , Choice of mask (A7030 or A7034) w/full face cushion (A7031) x1-2/mo, nasal cushion (A7032) x2/mo, or nasal pillows (A7033) x 2/mo; Length of Need: 99 months; Frequency of use: Daily 1 Each 11 5 Active Active Problems Problem Noted Date Diagnosed [...] Health Care Agent: Marie Perez Relationship:Spouse Phone: h)[phone] w)[phone] Secondary Health Care Agent: Zoraida Ling Relationship: Daughter Phone: h)[phone] c)[phone] Conservator: Jose Perez Relationship: Son Phone: c)[phone] Guardian: Relationship: Phone: Patient has Advance Care [...] Encounters Date Type Department Care Team Description 09/19/2024 Orders Only [facility] Scanner 1 scan: (1-Ord) INCOMING RECORDS-LABS, [facility], 09/19/2024 09/18/2024 Orders Only [facility] Scanner 1 scan: (1-Ord) INCOMING RECORDS-LABS, [facility], 09/18/2024 09/10/2024 11:30 AM CDT Office Visit [facility] [address] [place] [address] Carrillo Tate MD Sleep Follow-up 09/10/2024 Travel 08/28/2024 Telephone [facility] [address] [place] [address] Carrillo Tate MD DME Supply ([facility] ) 08/28/2024 Telephone [facility] [address] [place] [address] Carrillo Tate MD Need Meds (CPAP supply [...] History Relation Name Comments Heart Disease Father [place] x 2/had pac emaker Stroke Father Cancer [...] on file 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 Gender Identity Not on file Sexual Orientation [...] 02/23/2011, 01/19/1996 Medical Devices Implanted Type Area Administrative Support Coordinator Device Identifier Shelf Expiration Date Model / Serial / Lot Standard Pacemaker Implanted:10/15 by Maverick Freitas MD (Quantity not on file) Standard Pacemaker [id number] / [id number] / Procedures Procedure Name Priority Date/Time Associated Diagnosis Comments SCAN CORRESP-LABORATORY RESULTS 09/19/2024 12:00 AM CDT SCAN CORRESP-LABORATORY RESULTS 09/18/2024 12:00 AM CDT from Last 3 Months Results * SCAN CORRESP-LABORATORY RESULTS (09/19/2024 12:00 AM CDT) Only the most recent of2 resultswithin the time period is included. us Scanner OTHER Final Result from Last 3 Months Insurance * Guarantor: Marcos Perez Account Type Relation to Patient Date of Phone Billing Address Personal/Family Self 1935 [id number] [place] [address] MEDICARE PART B HB ONLY MEDICARE PART A HB ONLY [place] [place] [address] [employer] [place] [place] [address] [place] [address] * Guarantor: Marcos Perez Joni Account Type Relation to Patient Date of Phone Billing Address Personal/Family Self 1935 [address] [place] [address] [place] [address] MEDICARE PART B HB ONLY [place] Advance Directives Documents on File Type Date Recorded 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
--- OUTSIDE RECORDS SUMMARY | 2024-10-17 00:18 | XMS_ITS | Clinical Summary ---
Author Organization [facility] Address [address] [place] [address] Care Team Providers Care Toaster Operator Name Role Phone Elsewhere, Pcp Primary Care Provider Unavailabl e Source Comments Patient records contain information from all sites at [facility]. For routine questions regarding patient records, call [phone] during business hours, M-F 8:00 AM - 5:00 PM Central Time. 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 Influenza 03/04/2023 Bronchitis Chronic 06/11/2022 Asthma Severe 12/14/2021 COVID-19 Infection 09/11/2020 Shortness Of Breath (Concern For Covid-19) 02/16 Leukocytosis 02/15/2019 Congestive Heart Failure 02/15/2019 Recurrent Pneumonia Personal History 02/15/2019 Pneumonitis Due To Inhalation Of Food And Vomit 02/15/2019 Pneumonia 09/28/2018 Non-ST Elevation Myocardial Infarction 9 Elevated Troponin 09/23/2018 Overview (09/24/2018): Added automatically from request for surgery [id number] Other Pulmonary Eosinophilia Not Elsewhere Class ified [...] Depressive Disorder 07/19/2017 Depressed Cortisol Level 07/19/2017 Skilled Nursing (Current) Anticoagulant Treatment 04/14 Apnea Sleep Obstructive 11/27/2012 Hyperlipidemia 09/13/2011 Atrial Fibrillation Paroxysmal 02/22/2011 Other Specified Counseling 02/22/2011 Overview (09/10/2020): Patient has identified Health Care Agent(s): Yes- Pt verbally stated his preferences for spokespersons. Add Health Care Agents: Yes Health Care Agent(s): Primary Health Care Agent: Marie Perez Relationship:Spouse Phone: h)[phone] w)[phone] Secondary Health Care Agent: Zoraida Ling Relationship: Daughter Phone: h)[phone] c)[phone] Conservator: Jose Ana Relationship: Son Phone: c)[phone] Guardian: Relationship: Phone: Patient has Advance Care [...] Clinical Communication Division of Pulmonary Medicine in [address] [phone] Lilli Moore M.D. 09/10/2024 Clinical Communication Division of Pulmonary Medicine in [place], [place] [address] [place] [phone] Lilli Moore M.D. Phone call from daughter 08/21/2024 8:17 AM CDT - 08/21/2024 11:59 PM CDT Hospital Encounter Department of Cardiovascular Diseases in [place], [place] [address] [place] [address] Carroll Brito M.D. Discharge Disposition: Home or Self Care from Last 3 Months Immunizations Immunization Administration [...] drink = 0.6 oz pur e alcohol) [facility] [employer] Answer Date Recorded In the past 12 months has e [employer], gas, oil, or water [facility] threatened to shut off services in your [...] your living situation today? I have a [facility] to live 10/07/2023 Education Answer Date Recorded What is the highest level of school you have completed or the highest degree you have received? GED or equivalent 06/2019 Sex and Gender Information Value Date Recorded Sex Assigned at Male 07/19/2017 9:08 AM CDT Legal Sex Male 7:31 AM SAMPLE HAND Gender Identity Male 07/19/2017 9:08 AM CDT [...] CDT Respiratory Rate 20 01/25/2024 4:05 PM SAMPLE HAND Oxygen Saturation 95% 06/08/2024 2:25 PM CDT [...] quality tracking) 02/15/2024 Influenza Vaccine (#1) 2024 2, 12/01/2020, 11/16/2019, Additional history exists Creatinine Level [...] this topic Medical Devices Implanted Type Area Dietary Manager Device Identifier Shelf Expiration Date Model / Serial / Lot Medtronic 5524m Capsure Sp [id number] Implanted: (Quantity not on file) Cardiac Lead Medtronic 5524M CAPSURE SP / [id number] / Medtronic 5524m Capsure Sp [id number] Implanted: (Quantity not on file) Cardiac Lead Medtronic 5524M CAPSURE SP / [id number] / Knee Implant Knee Implant Right: Knee Knee Implant-02/24 Implanted: (Quantity not on file) Knee Implant Left: Knee Envelope Tyrx - [id number] Implanted:Qt y: 1 on 05/30/2023 by Sidney Bartlett M.D. at [facility] Mesh or Patch Medtronic 02/19/2024 [id number] / / [id number] Set Dg [facility] Resct Ms Thck - [id number] Implanted:Qt y: 1 on 08/23/2023 by Nikos Alvarado M.BAnaBAnaSAna at [facility] OTS System N/A: Ascending Colon [employer] [facility] 09/14/2024 200.76 / / [id number] Ppm Carly Gan - [id number] - [id number] Implanted:Qt y: 1 on 05/30/2023 by Sidney Bartlett M.D. at [facility] Pacemaker Medtronic 10/11/2024 [id number] / [id number] / Explanted Type Area Dietary Manager Device Identifier Shelf Expiration Date Model / Serial / Lot Medtronic Addrl1 Adapta [id number] Implanted:10/23 (Quantity not on file) Explanted:Qty: 1 on 05/30/2023 by Sidney Bartlett M.D. at [facility] Pacemaker Medtronic [id number] ADAPTA / [id number] / Procedures Procedure Name Priority Date/Time Associated Diagnosis Comments INTERFACED REMOTE DEVICE CHECK Routine 08/21/2024 8:17 AM CDT BASIC METABOLIC PANEL, S/P Routine 06/29/2024 10:18 AM CDT Left Ventricular Failure Unspecified (HCC) from Last 3 Months or Most Recently Relevant to Health Maintenance Results * CAR CARDIAC DEVICE INTERROGATION (08/21/2024 8:17 AM CDT) Date Time Interrogation Session [id number] [facility] Type Interrogation Session Remote [facility] Implantable Pulse Generator Dietary Manager Medtronic [facility] Implantable Pulse Generator Type Pacemaker [facility] Implantable Pulse Generator Model Carly XT DR ESCOBAR [id number] [facility] Implantable Pulse Generator Serial Number [id number] [facility] Implantable Pulse Generator Implant Date 20230530 [facility] Battery Remaining Longevity 93.0 mo [facility] Battery Voltage 3.010 [facility] Battery BITE BLOCK MAKER Trigger 2.625 [facility] Battery Status OK [facility] Shahid Statistic RA Percent Paced 44.79 [facility] Shahid Statistic RV Percent Paced 99.98 [facility] Atrial Tachy Statistic AT/AF [place] Percent 0.00 [facility] Lead Channel Sensing Intrinsic Amplitude 0.750 [facility] Lead Channel Setting Sensing Sensitivity 0.30 [facility] Lead Channel Impedance Value 380 [facility] Lead Channel Pacing Threshold Amplitude 1.600 [facility] Lead Channel Pacing Threshold Pulse Width 0.4 [facility] Lead Channel Measurements Date and Time 20240816 [facility] Lead Channel Setting Pacing Amplitude 3.250 [facility] Lead Channel Setting Pacing Pulse Width 0.4 [facility] Lead Channel Setting Sensing Sensitivity 2.80 [facility] Lead Channel Impedance Value 418 [facility] Lead Channel Pacing Threshold [...] 1 [facility] Implantable Lead Dietary Manager Medtronic [facility] Implantable Lead Model 5024M CapSure SP [facility] Implantable Lead Location Right Ventricle [facility] Implantable Lead Connection Status Connected [facility] Implantable Lead Serial Number [id number] [facility] Implantable Lead Implant Date 19980502 [facility] Implantable Lead Special Function Lead length: 52.00 cm [facility] Implantable Lead Dietary Manager Medtronic [facility] Implantable Lead Model 5524M CapSure SP [facility] Implantable Lead Location Right Atrium [facility] Implantable Lead Connection Status Connected [facility] Implantable Lead Serial Number [id number] [facility] Implantable Lead Implant [...] Teague M.D. 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
--- OUTSIDE RECORDS SUMMARY | 2024-10-17 00:18 | XMS_ITS | Encounter Summary ---
Author Organization [facility] Address [address] [place] [address] Care Team Providers Care Rattle Leak And Squeak Repairer Name Role Phone Elsewhere, Pcp Primary Care Provider Unavailabl e Encounter Details Date Type Department Care Team (Late st Contact Info) Description 09/11/2024 Clinical Communication Division of Pulmonary Medicine in [place], [place] [address] [place] [phone] Lilli Moore M.D. [address] [place] [phone] Social History Tobacco Use Types Packs/Day Years Used Date Smoking Tobacco: Former Cigarettes 2 10 0 02/15/1956 - 02/14/1966 Smokeless Tobacco: Former Chew Quit: 02/14/1966 Alcohol Use Standard Drinks/Week Comments No 0 (1 standard drink = 0.6 oz pur e alcohol) [facility] Utilities Answer Date Recorded In the [...] your living situation today? I have a [facility] place to live 10/07/2023 Education Answer Date Recorded What is the highest level of school you have completed or the highest degree you have received? 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 Gender Identity Male 07/19/2017 9:08 AM CDT Sexual Orientation Straight 07/19/2017 9: 08 AM CDT Occupation Industry Job Start Date Job End Date Retired Not on file Not on file Not on file documented as of this encounter Miscellaneous Notes * Telephone Encounter - Kya Tamayo - 09/11/2024 4:04 PM CDT Pulmonary Note: Call Message Caller: Outside Facility: Aline Arredondo Office: [phone] Message: Wondering if the montelukast is providing [...] on filedocumented in this encounter Care Teams Rattle Leak And Squeak Repairer Relationship Specialty Start Date End Date Elsewhere, Pcp PCP - General Family Medicine 01/16/18 documented as of this encounter
--- OUTSIDE RECORDS SUMMARY | 2024-10-17 00:18 | XMS_ITS | Encounter Summary ---
Author Organization [facility] Address [address] [place] [address] Care Team Providers Care Machinist Set Up Name Role Phone Elsewhere, Pcp Primary Care Provider Unavailabl e Reason for Visit * Reason Onset Date Comments Phone call from daughter 09/10/2024 Encounter Details Date Type Department Care Team (Latest Contact Info) Description 09/10/2024 Clinical Communication Division of Pulmonary Medicine in [place], [place] [address] [place] [address] Lilli Moore M.D. [address] [place] [address] Phone call from daughter Social History Tobacco Use Types Packs/Day Years Used Date Smoking Tobacco: Former Cigarettes 2 10 0 02/15/1956 - 02/14/1966 Smokeless Tobacco: Former Chew Quit: 02/14/1966 Alcohol Use Standard Drinks/Week Comments No 0 (1 standard drink = 0.6 oz pur e alcohol) [facility] Utilities Answer Date Recorded In the [...] your living situation today? I have a [facility] place to live 10/07/2023 Education Answer Date Recorded What is the highest level of school you have completed or the highest degree you have received? 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
== END 2024-10-16 14:28 | disposition home or self-care (01) ==
LOC: NPINS 14:27
PROVIDERS: PCP Surgery; Visit Provider Nurse Practitioner Gerontology
DX: Z51.81 Encounter for therapeutic drug level monitoring (principal)
CPT/HCPCS: 80048

== ENCOUNTER 2024-11-25 03:57 | Outpatient (CLI) | payer MEDICARE, BC, SELFPAY | END 2024-11-25 03:58 | disposition home or self-care (01) | LOC: AMB 11-27 13:40 | PROVIDERS: PCP Surgery; Visit Provider Family Medicine | DX: R00.0 Tachycardia, unspecified (principal) | CPT/HCPCS: A0998 ==

== ENCOUNTER 2024-12-18 13:44 | Outpatient (REF) | payer MEDICARE, BC, SELFPAY ==
--- OUTSIDE RECORDS SUMMARY | 2024-11-09 13:54 | XMS_ITS | Encounter Summary ---
Author Organization [facility] Address [address] [place] [id number] Care Team Providers Care Sap Treasury Consultant Name Role Phone Elsewhere, Pcp Primary Care Provider Unavailabl e Reason for Visit * Reason Comments Shortness of Breath Encounter Details Date Type Department Care Team (Late st Contact Info) Description 11/09/2024 2:54 PM CDT - 11/12/2024 2:12 PM CDT Hospital Encounter [facility], [facility], Third Floor [address] [place] [phone] Nydia Taylor M.D. [address] [place] [phone] eSbas Rodriguez M.D. [address] [place] [address] [phone] Robert Solomon M.D. [address] [place] [address] [phone] Pneumonia (Primary Dx); Shortness Of Breath Discharge Disposition: [facility]dc Care or Intermediate Care Facility Social History Tobacco Use Types Packs/Day Years Used Date Smoking Tobacco: Former Cigarettes 2 10 0 02/15/1956 - 02/14/1966 Smokeless Tobacco: Former Chew Quit: 02/14/1966 Alcohol Use Standard Drinks/Week Comments No 0 (1 standard drink = 0.6 oz pur e alcohol) Humiliation, Afraid, Rape, and Kick questionnair e Answer Date Recorded Within the last year, have y ou been afraid of your partner or ex-partner? No 11/09/2024 Within the last year, have y ou been humiliated or emotionally abused in other ways by your partner or ex-partner? No Within the last year, have y ou been kicked, hit, slapped, or otherwise physically hurt by your partner or ex-partner? No 11/09/2024 Within the last year, have y ou been raped or forced to have any kind of sexual activity by your partner or ex-partner? No 11/09/2024 Hunger Vital Sign Answer Date Recorded Within the past 12 months, y ou worried that your food would run out before you got the money to buy more. Never true 11/10/19 25 Within the past 12 months, t he food you bought just didn't last and you didn't have money to get more. Never true 11/09/2024 PRAPARE - Transportation Answer Date Re corded In the past 12 months, has l ack of transportation kept you from medical appointments or from getting medications? No 10/16 In the past 12 months, has l ack of transportation kept you from meetings, work, or from getting things needed for daily living? No 11/09/2024 [facility] Utilities Answer Date Recorded In the past 12 months has [facility] electric, gas, oil, or water [employer] threatened to shut off services in your home? No 11/09/2024 Housing Stability Answer Date Recorded What is your living situation today? [facility] 11/09/2024 Education Answer Date Recorded What is the highest level of school you have completed or the highest degree you have received? GED or equivalent 06/2019 Sex and Gender Information Value Date Recorded Sex Assigned at Male 07/19/2017 9:08 AM CDT Legal Sex Male 7:31 AM RN CVICU Gender Identity Male 07/19/2017 9:08 AM CDT Sexual Orientation Straight 07/19/2017 9: 08 AM CDT Occupation Industry Job Start Date Job End Date Retired Not on file Not on file Not on file documented as of this encounter Last Filed Vital Signs Vital Sign Reading Time Taken Comments Blood Pressure 129/76 11/12/2024 1:48 PM CDT Pulse 102 11/12/2024 1:48 PM CDT Temperature 36.8 C (98.2 F) 11/12/2024 1:48 PM CDT Respiratory Rate 18 11/12/2024 1:48 PM CDT Oxygen Saturation 95% 11/12/2024 1:48 PM CDT Inhaled Oxygen Concentration - - Weight 84.6 kg (186 lb 8.2 oz) 11/11/2024 5:00 A M CDT Height 167.6 cm (5' 6) 11/09/2024 9:56 PM CDT Body Mass Index 30.1 11/09/2024 9:56 PM CDT documented in this encounter Discharge Summaries * Gayatri Yeboah P.A.-C., M.S. - 11/12/2024 7:09 AM CDT DISCHARGE SUMMARY Discharge Provider: Robert Solomon M.D. ; Gayatri Yeboah PA-C Primary Care Providers: Elsewhere, Pcp (General) No address on file Discharge Provider Team: [facility] Internal Medicine ([facility]) [facility] Medicine 8 ([facility]) Primary Care Provider Phone Number: None Primary Care Provider Fax Number: None Other Providers: Admission Date: 11/09/2024 Discharge Date: 11/12/24 PRINCIPAL DIAGNOSIS Pneumonia SECONDARY DIAGNOSES Principal Problem: Pneumonia Active Problems: Intermediate (Current) Anticoagulant Treatment Atrial Fibrillation Paroxysmal (HCC) Apnea Sleep Obstructive Hyperlipidemia Gastroesophageal Reflux Disease NOS Depressive Disorder Hypoxia Prolonged QT Interval Failure Renal Acute (Acute Kidney Injury) Congestive Heart Failure (HCC) Acute Diastolic (Congestive) Heart Failure (HCC) Shortness Of Breath Cough Acute Eosinophilic Asthma (HCC) Resolved Problems: * No resolved hospital problems. * DISCHARGE DISPOSITION [facility]dc Care or Intermediate Care Facility [4] ACTIVE ISSUES REQUIRING FOLLOW UP OUTPATIENT FOLLOW UP For appointment details refer to your Patient Appointment Guide. TEST RESULTS PENDING AT DISCHARGE Pending Labs None DETAILS OF HOSPITAL STAY REASON FOR ADMISSION Pneumonia HOSPITAL COURSE Marcos Perez is a 89 y.o. male admitted for community-acquired pneumonia. 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 Baseline oxygen requirement is 2 L with CPAP at night and with activity, but none at rest prior to this illness. He resides at an assisted living facility in [place] but receives specialty care here at [facility]. He presented to the emergency department 11/09 for evaluation of cough and dyspnea. At baseline, he requires 2 L of supplemental oxygen with his CPAP at bedtime and with activity but none with rest. He notes over the past 3 days he has been more dyspneic requiring 2 L at rest and has had a productive cough of santana phlegm. He has been using his DuoNebs 4 times daily which assist with his symptom management however he started to feel generally weak prompting evaluation in the emergency department. Upon arrival to the emergency department, he was hypoxic requiring 2 L of supplemental oxygen at rest but other vitals were within normal limits. VBG within normal limits. CBC showing leukocytosis with mild neutrophilic predominance. BMP showing mild hyponatremia. Troponins were elevated but ultimat mildred plateaued, and no new EKG changes at baseline. NTPro BNP normal. Chest x-ray obtained showing pulmonary edema vs consolidation of the left lower lobe. He was treated with ceftriaxone and doxycycline for concern of community- acquired pneumonia. He wasadmitted to the Medicine 8 service. He remained afebrile. He improved to the point that his cough was no longer productive and thus sputum culture was never collected. Respiratory therapy re- evaluated the patient and he did not have increased oxygen requirements above his baseline. He was deemed medically stable for discharge on 11/12/2024. He will complete an oral antibiotics for an additional 6 days. ADDENDUM: CrCl around 41 at time of discharge. Recommend patient follow-up with PCP for monitoring and whether Xarelto needs to be adjusted to 15 mg daily. MEDICATIONS CHANGED DURING THIS HOSPITAL STAY Medications stopped: None Medications changed: None Medications added: Cefpodoxime, doxycycline CONSULTS ORDERED DURING THIS ADMISSION IP CONSULT TO CARE MANAGEMENT IP CONSULT TO CARE MANAGEMENT CONDITION AT DISCHARGE Stable I saw and evaluated Marcos Perez today and provided counseling [id number] at bedside. I personally spent over half of a total 30 minutes in counseling and discussion with the patient and in coordination of care as described above to facilitate the hospital discharge. Discharge instructions wereprovided to the patient and caregiver(s). documented in this encounter Discharge Instructions * Discharge Instructions* Keren Chairez - 11/12/2024 7:10 AM CDT You were discharged from the [facility] Medicine 8 ([facility]) Service. Please identify this service name if youcall with questions after hospitalization. * Patient Instructions* Fatuma Hernandez M.S.N., R.N., RN-EDER - 11/10/2024 9:51 AM CDT The Senior LinkAge Line?? is a service of the [place] [employer] in partnership with [place]'s Area Agencies on Aging. It is a free service of the [facility] that connects older [place]ians and their families with the help they need. Call the Senior LinkAge Line?? at: 685.593.2266 M-F, 8am-4:30pm to connect with specialists that are available to assist you with your specific needsor check out their website at https://[email or web address] * Attachments The following attachments cannot be sent through Care Everywhere. * Cefpodoxime Proxetil (By mouth) (Maltese) * Doxycycline (By mouth) (Maltese) * Polyethylene Glycol 3350 (By mouth) (Maltese) documented in this encounter Medications at Time of Discharge acetaminophen (TylenoL) 500 mg tablet Take 1,000 mg by mouth 2 (two) times a day as needed for pain. 05/17/2024 budesonide (PULMICORT) 0.25 mg/2 mL nebulizer solution Inhale 0.25 mg 2 (two) times a day. 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 fluticasone furoate-vilantero L (Breo Ellipta) 100-25 mcg/actuation inhaler Inhale 1 puff once daily. 60 each 3 10/12/2023 montelukast (SINGULAIR) 10 mg tablet Take 10 mg by mouth at bedtime. 11/16/2019 omeprazole (PriLOSEC) [address] capsule Take 20 mg by mouth every morning before breakfast. 12/04/2021 potassium chloride (KLOR-CON M) 10 mEq ER tablet Take 20 mEq by mouth 2 (two) times a day with meals. 08/30/2022 sertraline (ZOLOFT) 50 mg tablet Take 50 mg by mouth daily. 12/04/2021 albuterol (PROVENTIL HFA,VENTOLIN HFA) 90 mcg/actuation inhaler Inhale 1-2 puffs every 4 (four) hours as needed for wheezing or shortness of breath. 1 Inhaler 11 04/19/2019 5 alum-mag hydroxide-simeth (Cyndy-Lanta) 200-200-20 mg/5 mL suspension Take 30 mL by mouth as needed for indigestion. 5 benzonatate (TESSALON) 200 mg capsule Take 200 mg by mouth 3 (three) times a day as needed for cough. 5 bisacodyL (Dulcolax) 5 mg EC tablet Take 2 tablets (10 mg total) by mouth daily. Please take 2-tablets two days before and another 2-tablets the night before the colonoscopy. 4 tablet 10/11/2023 5 cefpodoxime (Vantin) 200 mg tabletIndications :Pneumonia Take 1 tablet (200 mg total) by mouth 2 (two) times a day for 5 days. . 10 tablet 11/12/2024 11:03 AM CDT 11/12/2024 5 cholecalciferol (VITAMIN D3) 25 mcg (1,000 Unit) capsule Take 1 capsule (1,000 Units total) by mouth daily. 05/14/2023 5 doxycycline monohydrate (Avidoxy) 100 mg tabletIndications :Respiratory tract infection, community acquired Take 1 tablet (100 mg total) by mouth 2 (two) times a day before morning and evening meals for 5 doses Indications: Respiratory tract infection, community acquired. . 5 tablet 11/12/2024 5 ipratropium-albut abisai (DUO-NEB) 0.5-2.5 mg/3 mL nebulizer solution Take 3 mL by nebulization 4 (four) times a day as needed for wheezing or shortness of breath. 10/05/2018 5 loperamide (Imodium A-D) 2 mg tablet Take 2 mg by mouth as needed for diarrhea. 5 magnesium hydroxide 400 mg/5 mL suspension Take 30 mL by mouth as needed. 5 multivitamin tablet Take 1 tablet by mouth daily. 30 tablet 03/20/2018 5 nitroglycerin (NITROSTAT) 0.[address] under the tongue every 5 (five) minutes as needed for chest pain. 06/22/2016 5 polyethylene glycol (Miralax) 17 gram powder packet Take 1 packet by mouth daily as needed for constipation. Dissolve each 17 g dose in 240 mLs (8 ounces) of beverage. 11/12/2024 5 sennosides-docusa te sodium (Senokot-S) 8.6-50 mg per tablet Take 1 tablet by mouth daily. 03/01/2024 5 torsemide (DEMADEX) 20 mg tablet take 2 tablets by mouth daily. 60 tablet 06/27/2023 5 Xarelto 20 mg tablet Take 20 mg by mouth daily with evening meal. 07/17/2021 5 documented as of this encounter Progress Notes * Joyce Younger R.R.T., L.R.T. - 11/12/2024 1:19 PM CDT [facility] Chronic Pulmonary Disease Educator (RT) Initial Visit: Eosinophilic asthma Admission for Pneumonia mMRC:3 ED/Hospitalization:1 Outpatient Exacerbation Frequency:1 Last PFT:2024 mildly reduced DLCO. Normal spirometry ACT: 22 Lab Results Component Value Date WBC 14.3 (H) 11/11/2024 HGB 11.8 (L) 11/11/2024 HCT 36.9 (L) 11/11/2024 MCV 87.4 11/11/2024 PLT 245 11/11/2024 Lab Results Component Value Date/Time EOSINOPHILS 0.37 11/11/2024 2236 EOSINOPHILS 0.74 (H) 11/09/2024 2332 EOSINOPHILS 0.87 (H) 11/09/2024 1649 EOSINOPHILS 0.04 10/13/2023 1425 EOSINOPHILS 0.04 10/11/2023 0828 EOSINOPHILS 0.03 10/10/2023 0929 EOSINOPHILS <0.03 10/09/2023 0904 EOSINOPHILS <0.03 10/08/2023 0657 EOSINOPHILS <0.03 10/07/2023 0240 EOSINOPHILS 0.3 09/15/2023 1424 EOSINOPHILS 0.0 09/15/2023 1424 EOSINOPHILS 0.1 09/12/2023 1050 EOSINOPHILS 0.0 09/12/2023 1050 Current home medications prior to admission: Ipratropium [place]/Albuterol Sulfate: DuoNeb twice a day, LABA/ICS: Breo Ellipta taken once a day , ICS: Pulmicort nebulizer twice a day after the DuoNebs , Takes as prescribed? yes , Appropriate technique? yes, Peak Inspiratory Flow: 6)LP fast , InCheck done Other : Dupixent every 2 weeks Respiratory Home Routine: Cough/secretion management: productive cough greyish colored and thick when fighting respiratory infection. Clear to white any other day , Activity: just completed and cardiopulmonary rehab program.weather permitting. Enjoys talking walks , Oxygen: 2 L oxygen , Noninvasive Positive Pressure: CPAP ,Durable Medical Equipment (DME) Provider [facility] Patient education done with this visit: Inhaled Medications: dry powder inhaler technique and correct positioning of Ellipta device. When to use DuoNeb qid as part of sick day plan. , Pursed lip breathing , Energy conservation , Oxygen SpO2 goal 88-92% Pros and cons of portable oxygen concentrators that provide pulse dose delivery of oxygen While hospitalized, patient is in need of: DME oxygen assessment to assess daytime needs . Reconcile home med list Recommendations for discharge: Continue to follow-up with Dr Palencia-Jose Outpatient inhaled medications: - Continue Breo once a day and Pulmicort 0.25 mg nebulized twice a day.DuoNebs up to four times a day as needed. Other: Continue Dupixent every two weeks Joyce Younger R.R.T., L.R.T. Pulmonary Disease Educator 11/12/24 1:19 PM CDT Pulmonary Disease Educators are available: Tuesday-Tuesday, 7:00 - 3:00 and as needed. Pager [phone] * Yue Kincaid, R.N. - 11/12/2024 8:24 AM CDT SUBJECTIVE clothing examiner finalizing discharge plans. OBJECTIVE Patient is currently hospitalized on JO3A in room 192. ASSESSMENT / PLAN WHITE WORK CLEANERclothing examiner did not assess the patient at this time. Patient benefits from discharge planning. PLAN The patient and patient's daughter agrees with the following plan. Patient's Anticipated Discharge Destination: [facility]dc Care or Intermediate Care Facility Destination: Assisted Living Facility: [facility] Phone: Elsie [phone] Contact: Nursing Patient was receiving the following care: med management and bathing. Patient cannot return on weekend. Patient needs to be back by 3 pm. Additional equipment needed for return: none Patient cannot return if requiring 2 assist, iv antibiotics. COVID screening needed before patient can return: no Return transportation to be provided by family. NURSING to arrange transportation and transport oxygen if needed. NURSING: - Call report on morning of dismissal. - Complete documentation in the Discharge Navigator including Nursing Report Info and Facility/NextLevel of Care Info - Send copy of After Visit Summary with patient at discharge. PRIMARY SERVICE: - Provide written prescriptions for all narcotics. - please escribe any new antibiotics to [facility] pharmacy in [place], [place] Elementary School Counselor : -Reviewed patient's insurance coverage for the services noted above. The patient appear(s) to have an understanding of this. -Will continue to follow and assist if needs arise. Oxygen Reconnect: Durable Medical Equipment - Admitted Since 11/09/2024 Service Provider Services Address Phone Fax Patient Preferred [facility] Durable Medical Equipment [address], [place] [address] -- Contact: intake Respiratory Equipment : stationary concentrator and portable concentrator tank Oxygen provider reports patient???s current orders are for 2 liters with activity. NURSING: - Arrange transportation oxygen tank if needed. - If new oxygen requirements are needed, assist primary service with new prescription and fax to provider. PRIMARY SERVICE: - Complete and sign new oxygen prescription if needed. Elementary School Counselor : -Reviewed patient's insurance coverage for the services noted above. The patient appear(s) to have an understanding of this. -Will continue to follow and assist if needs arise. Transportation upon dismissal will be provided by family--daughter to drive. clothing examiner encouraged the patient to reach out with any questions/concerns. Care Management will continue to assess for homegoing needs with the interdisciplinary team. Yue Kincaid R.N. 11/12/24 * Gayle Urena, R.R.T., L.R.T. - 11/11/2024 11:49 PM CDT 11/11/24 2310 BPAP/CPAP Therapy BPAP/CPAP Interface Full face mask Patient's Own Equipment Mask;Tubing;CPAP;Patient able to manage equipment on own;Equipment inspected (per site policy) Ventilator Parameters Ventilator Parameters (Select Groups) BPAP/CPAP Rows BPAP/CPAP Mode CPAP;Per Home Settings O2 Flow Rate 2 L/min NPPV EPAP (CPAP) Setting 15 cm H2O Humidification Heated humidifier RT paged to room to assist with CPAP. RT found home oxygen bleed-in disconnected from patient's CPAP device. Oxygen reconnected and set to 2L, according to patient this is his home baseline. Ensured adequate water is in humidifier, device is plugged into red outlet, and verified settings. Please contact RT with any questions or concerns. Electronically signed by: Lora Urena R.R.T., L.R.TAna 11/11/24 11:50 PM CDT * Micaela Kearney - 11/11/2024 4:15 PM CDT 11/11/24 1600 Home Oxygen Assessment Rest/Awake Room Air SpO2 91 Percent Exercise/Activity Room Air SpO2 86 Percent Exercise/Activity with Oxygen SpO2 93 Percent (with 2 liter nasal cannula) Home going oxygen assessment complete. Patient qualified for 2 liters with activity and 0 liters atrest to maintain saturations above 88%. Contact RT with any concerns. Electronically signed by: Micaela Kearney 11/11/24 4:16 PM CDT Under the direction of Benito Mack PLATFORM INSPECTOR * Gayatri Yeboah P.A.-C., M.S. - 11/11/2024 9:43 AM CDT RST Medicine 8 ([facility]) Progress Notes SUBJECTIVE I evaluated Mr. Perez on rounds today. He slept well and feels better in terms of coughing. No sputum production. We discussed having him ambulate today and will ask our RT colleagues to re-evaluate his need for O2 with activity. OBJECTIVE VITAL SIGNS Temperature: [36.5 ??C-36.7 ??C] 36.6 ??C Resp Rate: [16-20] 20 Blood Pressure: (104-134)/(64-70) 134/70 SpO2: [90 %-97 %] 94 % Flow Rate (L/min): [1 L/min-2 L/min] 1 L/min Pulse Rate: [72-94] 89 Intake/Output Last 24 Hours: Net IO Since Admission: -1,200 mL [11/11/24 1418] PHYSICAL EXAM General: Alert, interactive, no apparent distress. Skin: No rashes or lesions. HEENT: Sclera anicteric. Hearing grossly intact. Moist mucous membranes. Lungs: Currently on room air. Clear to auscultation bilaterally. Heart: Regular rate and rhythm. 2/6 systolic murmur. Abdomen: Bowel sounds present in all four quadrants. Abdomen is soft, nondistended, nontender. No organomegaly. Neuro: Grossly non-focal. Mental: Mood and affect congruent. Alert and oriented. Attention intact. No evidence of disorganized thinking. RASS 0. CAM negative for acute delirium. 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 DIAGNOSTICS I personally reviewed labs, imaging, EMR. WBC 13.2, Creatinine 1.38, eGFR 49. ASSESSMENT / PLAN Mr. Perez is an 89 year old male presenting with 3 days of progressive shortness of breath and productive cough with grayish sputum, and increased oxygen at home. 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 Baseline oxygen requirement is 2 L with CPAP at night and with activity, but none at rest priorto this illness. He resides at an assisted living facility in [place]. #CAP #DENITA on CKD (baseline Cr 1.2) Renal function is slowly improving. No concern for CHF exacerbation at present. -- Continues on ceftriaxone, doxycycline -- Continue home torsemide. #Atrial fibrillation on Xarelto #Mild CAD on coronary cath 04/2023 #History complete heart block 1998 s/p pacemaker #HFpEF -- Continue home Xarelto, torsemide #Eosinophilic asthma #DANAE #Chronic hypoxic respiratory failure (2 L at night and with activity) #History of Pneumoconiosis Due To Asbestos And Other Mineral Fibers --RT to evaluate for daytime O2 needs (currently reported 2 L with activity) --Continue Breo Ellipta, Pulmicort, DuoNebs, Singulair --Patient uses 2 L bleed in, able to use home CPAP --Trend CBC with diff tomorrow AM Diet: 2 g sodium restriction Tubes/lines: PIV VTE prophylaxis: Home Xarelto PPI prophylaxis: Not indicated Current Activity/Mobility: BMAT Level 4 (Able to stand and walk; needs staff assist if fall risk factors identified) Fall Injury Prevention: I have discussed My Plan for Safe Activity with the patient. Disposition: Home Code status: DNR/DNI Stable to discharge criteria (not yet met): Vital signs--possibly ready for discharge tomorrow 11/12 Patient discussed with Sebas Rodriguez M.D. who is in agreement with plan of care detailed above. I provided [id number] counseling at bedside regarding the plan of care. The patient acknowledgedan understanding and agreed with the plan of care listed above. I personally spent over half of a total 35 minutes in counseling and coordination of care as documented above. Gayatri Yeboah M.S., PA-C * Sebas Rodriguez M.D. - 11/10/2024 11:02 AM CDT I saw and evaluated Marcos Perez on rounds today with our medicine team, and I agree with the findings and plan as documented in today's note by Gayatri Yeboah P.A.-C.with the following comments: Mr. Cecil Perez is an 89-year-old gentleman with history of atrial fibrillation on anticoagulation,DANAE, eosinophilic asthma, GERD, depression, prolonged QT syndrome, heart failure with preserved ejection fraction, incomplete heart block status post pacemaker, mild with CAD, prior NSTEMI 2019 and 2L nocturnal oxygen requirement via CPAP and with exertion. Patient was in his usual state consulted and 3 days ago when he began having increased dyspnea withexertion and cough. Does endorse associated chills, but no objective fevers. Cough is productive ofopaque sputum. In the ED workup was revealing of leukocytosis. Chest x-ray with pulmonary edema versus consolidation left lower lobe. ProBNP within normal limits. Presentation most consistent with community-acquired pneumonia. We will continue ceftriaxone and doxycycline for cap coverage and monitor closely. Sputum cultures ordered but not yet collected. He is feeling improved today. Please refer to Gayatri Yeboah P.A.-C.note dated today for additional details about our team's planof care. * Crissy Diaz MDIV, [facility] - 11/10/2024 10:25 AM CDT [facility] Spiritual Care Progress Note Patient: Marcos Perez Age:89 y.o. Location: [id number] Reason(s) for encounter: Spiritual Care contact to introduce spiritual care service and assess for potential spiritual care needs. Summary: I was able to meet with Marcos Perez and hear about his hospitalization. He welcomed prayer, which was provided. Spiritual Assessment Mormon Identification / Spiritual Practices: Mr. Perez is Restorationist. Spiritual Care interventions: Facilitated uatsdin/spiritual practices (prayer, blessing, sacred texts, uatsdin item) with theaim to reinforce patient's spiritual wellness and connection with source of sacredness. Support was provided with the aim to establish rapport and allow a safe space to voice hopes and/orconcerns regarding patient's current medical condition. Spiritual Care outcomes: Patient/family expressed feeling comforted by prayer Patient/family was appreciative of spiritual care support. Spiritual Care Plan / Recommendations: Will remain available for spiritual care as needed or requested. Chaplains can be contacted by paging [phone] ([place]) or [phone] (Rastafarian). * Gayatri Yeboah P.A.-C., M.S. - 11/10/2024 10:22 AM CDT [facility] 8 ([facility]) Progress Notes SUBJECTIVE The Medicine 8 team evaluated Macros Perez on rounds today. He is lying in bed currently. Overnight an PLATFORM INSPECTOR was activated due to chest pain. He says this is now resolved. He hasn't noticed increasedswelling in his legs. He reports a typical dry weight of 195 lbs. He describes some ongoing shortness of breath with exertion but overall feels his eosinophilic asthma has been well-controlled. Per outpatient notes, recently changed to Dupixent due to cost. I reviewed the current medication list. OBJECTIVE VITAL SIGNS Temperature: [36.4 ??C-37.1 ??C] 36.6 ??C Heart Rate: [71-85] 85 Resp Rate: [16-29] 18 Blood Pressure: (114-147)/(58-72) 117/63 SpO2: [88 %-99 %] 95 % Flow Rate (L/min): [2 L/min] 2 L/min Pulse Rate: [69-87] 69 Intake/Output Last 24 Hours: Net IO Since Admission: 155 mL [11/10/24 1231] PHYSICAL EXAM General: Alert, interactive, no apparent distress. Skin: No rashes or lesions. HEENT: Sclera anicteric. Hearing grossly intact. Moist mucous membranes. Lungs: Currently on room air. Bilateral wheeze noted in upper lung ross R>L, no rhonchi or crackles. Heart: Regular rate and rhythm. No murmurs appreciated. No extremity edema. No JVD. Abdomen: Bowel sounds present in all four quadrants. Abdomen is soft, nondistended, nontender. No organomegaly. Neuro: Grossly non-focal. Mental: Mood and affect congruent. Alert and oriented. Attention intact. No evidence of disorganized thinking. RASS 0. CAM negative for acute delirium. 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 DIAGNOSTICS I personally reviewed labs, imaging, EMR. WBC downtrended 12.4, left shift and elevated eosinophils decreased from 0.87 to 0.74. Anion gap 16. Creatinine 1.42. Troponins 86, 82, 99, 84, 83. EKG without new ischemic changes. NT proBNP 313. ASSESSMENT / PLAN Mr. Perez is an 89 year old male presenting with 3 days of progressive shortness of breath and productive cough with grayish sputum, and increased oxygen at home. 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 Baseline oxygen requirement is 2 L with CPAP at night and with activity, but none at rest priorto this illness. He resides at an assisted living facility in [place]. #CAP #HFpEF Remained stable on empiric antibiotics. No concern for acute CHF exacerbation given low NT proBNP and physical exam. -- Continues on ceftriaxone, doxycycline -- Follow up pneumonia PCR and sputum culture -- Continue home torsemide. #Atrial fibrillation on Xarelto #Mild CAD on coronary cath 04/2023 #History complete heart block 1998 s/p pacemaker Chest pain overnight resolved and troponins remained flat and not significantly elevated from priorlevels. -- Continue home Xarelto, torsemide #Eosinophilic asthma #DANAE #Chronic hypoxic respiratory failure (2 L at night and with activity) --Continue Breo Ellipta, Pulmicort, DuoNebs, Singulair --Patient uses 2 L bleed in, able to use home CPAP Diet: 2 g sodium restriction Tubes/lines: PIV VTE prophylaxis: Home Xarelto PPI prophylaxis: Not indicated Current Activity/Mobility: BMAT Level 4 (Able to stand and walk; needs staff assist if fall risk factors identified) Fall Injury Prevention: I have discussed My Plan for Safe Activity with the patient. Disposition: Home Code status: DNR/DNI Stable to discharge criteria (not yet met): Vital signs, Labs, and Acute care monitoring needs Patient seen and discussed with Sebas Rodriguez M.D. who is in agreement with plan of care detailed above. I provided [id number] counseling at bedside regarding the plan of care. The patient acknowledged an understanding and agreed with the plan of care listed above. I personally spent over half of a total 50 minutes in counseling and coordination of care as documented above. Gayatri Yeboah M.S., PA-C * Lilli Rosales Pharm.D., R.Ph. - 11/10/2024 7:18 AM CDT Pharmacist Progress Note Reason for admission: Dyspnea and cough PMH: Atrial fibrillation on Xarelto, DANAE, hyperlipidemia, GERD, depression, prolonged QT syndrome, HFpEF (EF 53%), asthma and history of coronary artery disease OBJECTIVE Home medications: Held: Vitamin D, ferrous sulfate, omeprazole, KCl Changed: None New: Ceftriaxone, doxycyline Prophylaxis: Rivaroxaban ASSESSMENT / PLAN CAP: Initiated ceftriaxone 2 g IV daily + doxycycline 100 mg BID. Anticipate 5 days duration and transitioning to PO pending clinical improvement. PNA PCR pending. Sputum cxs pending. DENITA (BL SCr ~1.0-1.2): Medications reviewed. Using ABW, CrCl is 45 ml/min which is around the cutoff for rivaroxaban dose adjustment. If renal function continues to worsen, consider decreasing rivaroxaban dose to 15 mg daily Lilli Rosales Pharm.D., R.Ph. * Angel Thacker M.D., M.S. - 11/10/2024 5:10 AM CDT RAPID RESPONSE TEAM (PLATFORM INSPECTOR) DOCUMENTATION CODE STATUS: DNR/DNI REASON FOR PLATFORM INSPECTOR CONSULT: Chest pain PRIMARY TEAM: [facility] Medicine 8 ([facility]) BACKGROUND/SITUATION: Relevant comorbidities notable for: Atrial fibrillation on Xarelto, DANAE, hyperlipidemia, GERD, depression, prolonged QT syndrome, HFpEF (EF 53%), complete heart block status post pacemaker, CAD, asthma, and hiatal hernia This is hospital day 1 for Mr. Marcos Perez, a 89 y.o. male admitted for community-acquired pneumonia. He is being treated with IV ceftriaxone and doxycycline. An PLATFORM INSPECTOR was called on 11/10/24at 4:39 a.m. for concern of chest pain that started around 3:00 a.m.. Upon arrival, the patient washemodynamically stable, on room air, and afebrile. He explained that the pain was localized inferior to his sternum, in the epigastric area, sharp in character. It lasted for perhaps an hour. At the time of the PLATFORM INSPECTOR, the pain had subsided, however he was experiencing some abdominal discomfort. He reported feeling gassy. He also endorsed shortness of breath, however this was not new as he was admitted with pneumonia. ECG revealed an atrial-sensed ventricularly paced sinus rhythm with no significant significant change compared to an ECG obtained yesterday. PHYSICAL EXAMINATION: BP 128/62 (BP Location: Right arm) Pulse 77 Temp 37.1 ??C (Oral) Resp (!) 29 Ht 167.6 cm Wt 88.5 kg SpO2 94% BMI 31.49 kg/m?? GEN: Well-appearing in no acute distress. CARDS: Regular rate and rhythm, no murmurs, rubs, gallops or clicks. PULM: Clear to auscultation bilaterally. Good chest wall excursion. No accessory muscle usage. ABD: Large abdomen with central adiposity, nontender, hyperactive bowel sounds INTEG: No visible rashes or skin lesions on exposed skin. PV: Warm, well-perfused. NEURO: Grossly non-focal. Moves all extremities spontaneously. PSYCH: Appropriate, cooperative. PLATFORM INSPECTOR ASSESSMENT: This patient's clinical syndrome of acute epigastric/inferior substernal pain, abdominal discomfort, and hyperactive bowel sounds is compatible with flatulence and gas pain. This could also be gastric reflux as he has a hiatal hernia. I have lower concern that this is ACS given an unchanged ECG. RECOMMENDATIONS: - Obtain troponin levels rule out ACS - Optimize bowel regimen - Primary team/nursing will call us back if patient worsens or if any concerning changes - PLATFORM INSPECTOR nurse will follow up with primary nurse & patient in 4 hours This contingency plan was discussed with the nursing staff, who is in agreement with this plan. DISPOSITION: MICU1 CONTINGENCY PLANNING: As discussed above. Patient was staffed with eICU cycle consultant, Dr. Moser, who is in agreement with this plan & disposition. Please do not hesitate to call PLATFORM INSPECTOR if new concerns arise. Thank you for this consultation. Angel Thacker MD MS PGY3 Internal Medicine Pager #[phone] * HuttonTani R.R.T., Gem.R.T. - 11/09/2024 10:48 PM CDT 11/09/24 2248 BPAP/CPAP Therapy BPAP/CPAP Interface Full face mask Patient's Own Equipment Mask;Tubing;CPAP;Patient able to manage equipment on own;Equipment inspected (per site policy) Patients home CPAP set up for hospital use. Home settings CPAP 15 with 2 LPM O2 bleed in. O2 inlineand water chamber filled. Page RT if patient should require assistance. documented in this encounter H&P Notes * Diallo Crum M.D. - 11/09/2024 9:54 PM CDT [facility] Medicine 8 ([facility]) Admission Note SUBJECTIVE CHIEF COMPLAINT / REASON FOR VISIT Dyspnea and cough. HISTORY OF PRESENT ILLNESS Marcos Perez is a 89 y.o. male admitted for community-acquired pneumonia. Pertinent medical history includes atrial fibrillation on Xarelto, DANAE, hyperlipidemia, GERD, depression, prolonged QT syndrome, HFpEF (EF 53%), asthma and history of coronary artery disease. He lives in [facility] but receives specialty care here at [facility]. He presented to the emergency department 11/09 for evaluation of cough and dyspnea. At baseline, he requires 2 L of supplemental oxygen with his CPAP at bedtime and with activity but none with rest. He notes over the past 3 days he has been more dyspneic requiring 2 L at rest and has had a productive cough of santana phlegm. He has been using his DuoNebs 4 times daily which assist with his symptom management however he started to feel generally weak prompting evaluation in the emergency department. Upon arrival to the emergency department, he was hypoxic requiring 2 L of supplemental oxygen but other vitals were within normal limits. VBG within normal limits. CBC showing leukocytosis with mild neutrophilic predominance. BMP showing mild hyponatremia. Troponin initially elevated and indeterminate at 2 hours though this is his baseline. Pro BNP normal. Chest x-ray obtained showing pulmonary edema vs consolidation of the left lower lobe. He was treated with ceftriaxone and doxycycline for concern of community- acquired pneumonia. In thesetting of new oxygen requirement, he was admitted for ongoing evaluation and management. Upon arrival to the floor, his vitals remained stable he was continued on antibiotics. Meds, allergies, medical, surgical, social & family histories have been reviewed & updated as necessary. Current Outpatient Medications on File Prior to Encounter: acetaminophen (TylenoL) 500 mg tablet, albuterol (PROVENTIL HFA,VENTOLIN HFA) 90 mcg/actuation inhaler, Inhale 1-2 puffs every 4 (four) hours as needed for wheezing or shortness of breath. alum-mag hydroxide-simeth (Cyndy-Lanta) 200-200-20 mg/5 mL suspension, Take 30 mL by mouth as neededfor indigestion. benzonatate (TESSALON) 200 mg capsule, Take 200 mg by mouth 3 (three) times a day as needed for cough. bisacodyL (Dulcolax) 5 mg EC tablet, Take 2 tablets (10 mg total) by mouth daily. Please take 2-tablets two days before and another 2-tablets the night before the colonoscopy. budesonide (PULMICORT) 0.25 mg/2 mL nebulizer solution, Inhale 0.25 mg 2 (two) times a day. cholecalciferol (VITAMIN D3) 25 mcg (1,000 Unit) capsule, Take 1 capsule (1,000 Units total) by mouth daily. DME Oxygen, DME Order - for details see Order Report dupilumab (Dupixent Pen) 300 mg/2 mL injection, Inject 2 mL (300 mg total) under the skin as directed. Inject 600 mg under the skin once. Start 300 mg under the skin every 2 weeks 14 days after the 600 mg injection. ferrous sulfate 325 mg (65 mg iron) tablet, Take 1 tablet (65 mg of iron total) by mouth every other day. finasteride (PROSCAR) 5 mg tablet, Take 5 mg by mouth daily. fluticasone furoate-vilanteroL (Breo Ellipta) 100-25 mcg/actuation inhaler, Inhale 1 puff once daily. ipratropium-albuterol (DUO-NEB) 0.5-2.5 mg/3 mL nebulizer solution, Take 3 mL by nebulization 4 (four) times a day as needed for wheezing or shortness of breath. loperamide (Imodium A-D) 2 mg tablet, Take 2 mg by mouth as needed for diarrhea. magnesium hydroxide 400 mg/5 mL suspension, Take 30 mL by mouth as needed. montelukast (SINGULAIR) 10 mg tablet, Take 1 tablet by mouth at bedtime. multivitamin tablet, Take 1 tablet by mouth daily. nitroglycerin (NITROSTAT) 0.4 mg SL tablet, Place under the tongue every 5 (five) minutes as neededfor chest pain. omeprazole (PriLOSEC) [address] capsule, Take 20 mg by mouth every morning before breakfast. potassium chloride (KLOR-CON M) 10 mEq ER tablet, Take 20 mEq by mouth 2 (two) times a day with meals. sennosides-docusate sodium (Senokot-S) 8.6-50 mg per tablet, Take 1 tablet by mouth daily. sertraline (ZOLOFT) 50 mg tablet, Take 50 mg by mouth daily. torsemide (DEMADEX) 20 mg tablet, take 2 tablets by mouth daily. Xarelto 20 mg tablet, Take 20 mg by mouth daily. OBJECTIVE VITAL SIGNS Temperature: [36.7 ??C-36.8 ??C] 36.7 ??C Heart Rate: [71-79] 71 Resp Rate: [16-24] 18 Blood Pressure: (114-147)/(58-72) 147/70 SpO2: [88 %-99 %] 96 % Flow Rate (L/min): [2 L/min] 2 L/min Pulse Rate: [70-87] 87 PHYSICAL EXAMINATION General: Tired appearing person in no apparent distress. Cardiovascular: Regular rate Pulmonary: Clear to auscultation bilaterally, no crackles heard on my examination, slight end expiratory wheeze heard throughout the left lower lung base Skin: Warm and well perfused Mental Status: A&O x 3, interactive, able to follow commands DIAGNOSTICS I have independently reviewed the labs, ECG, xray, diagnostics, and echo from 6 months ASSESSMENT / PLAN In summary, Alicia is an 89-year-old gentleman admitted for evaluation management of cough, dyspneaand generalized weakness presumed to be community- acquired pneumonia based on leukocytosis, chest x-ray showing left lower lung consolidation, hypoxia and general malaise. # Dyspnea # Hypoxia # Cough # Pneumonia # Congestive Heart Failure (HCC) # Acute Diastolic (Congestive) Heart Failure (HCC) Differential for dyspnea, hypoxia and cough include community-acquired pneumonia versus heart failure exacerbation. With leukocytosis, new oxygen requirement and cough more concerned for community-acquired pneumonia. Has had a significant weight gain since moving into his assisted living but deniesorthopnea, has 1+ pitting edema in lower extremities and bilateral interstitial edema on chest x-ray although normal BNP and recent echocardiogram showing EF of 53%. We will continue antibiotics including ceftriaxone and doxycycline. We will continue torsemide, 2 L fluid restriction and 2 g sodium restriction. We will monitor weight closely. Low threshold to increase diuresis if symptoms worsen or do not improve with antibiotic therapy. - Pneumonia PCR pending - Continue home regimen of Pulmicort, Singulair and Breo - DuoNebs 4 times daily scheduled, albuterol q.6 hours for dyspnea and wheeze. - Incentive spirometry - Baseline oxygen 2 L with activity and CPAP at night with bleeding - Will discharge back to assisted living with # Intermediate (Current) Anticoagulant Treatment # Atrial Fibrillation Paroxysmal (HCC) - Anticoagulated on Xarelto # Apnea Sleep Obstructive - CPAP with 2L bleed in per patient # Hyperlipidemia - Not on statin therapy, per cardiology recommended Zetia # Gastroesophageal Reflux Disease NOS - Omeprazole 20 mg home regimen (not on formulary) Tums PRN # Depressive Disorder - Resume Sertraline 50 mg # Prolonged QT Interval - QTc on admission 497 - Avoid QT prolonging medications - Goal K > 4, Mg >2 DIET: Adult Diet Regular; 2,000 mg Na; 2000 mL Fluid TUBES/LINES: PIV VTE PROPHYLAXIS: therapeutic anticoagulation CODE STATUS: DNR/DNI BASELINE MOBILITY: BMAT Level 4 (Able to stand and walk) DISPOSITION: Home I personally spent a total of 75 minutes providing and coordinating care today. documented in this encounter Consult Notes * Fatuma Hernandez M.S.N., R.N., RN-BC - 11/10/2024 9:52 AM CDTAssociated Order(s): IP CONSULT TO CARE MANAGEMENT; IP CONSULT TO CARE MANAGEMENT Discharge Planning Assessment SUBJECTIVE Assessment Information Referral Data Referral Source: Nurse Referral Name: Darrian Castillo M.S.N., R.N Referral Reason: Discharge Planning Discharge Planning: Oxygen, Assisted living Previous Assessment: Yes Previous assessment done on: 10/07/23 Previous assessment done by: Sid Mcdonald RN [employer] Used: No Primary Language: Maltese [employer] Used: No Person(s) Present During Interview: patient and daughter, Zoraida, via phone History of Present Illness #1 Intermediate (Current) Anticoagulant Treatment #2 Atrial Fibrillation Paroxysmal (HCC) #3 Apnea Sleep Obstructive #4 Hyperlipidemia #5 Gastroesophageal Reflux Disease NOS #6 Depressive Disorder #7 Hypoxia #8 Prolonged QT Interval #9 Pneumonia #10 Congestive Heart Failure (HCC) #11 Acute Diastolic (Congestive) Heart Failure (HCC) #12 Shortness Of Breath #13 Cough Acute Social History Support System: spouse and children Primary Caregiver: self and facility staff Social Drivers of Health with Concerns No concerns present OBJECTIVE Finance/Insurance Primary insurance: MEDICARE A AND B Secondary insurance: Shar[place]ike benefits: No Advance Directives Legal Decision Maker: Self Advance Directives: POLST/POST, On file Advance Directives Status: Not Activated Baseline Functional Status Baseline Activities of Daily Living Mobility: Independent, Requires aide of device Dressing: Independent Feeding: Independent Bathing: Needs assistance Grooming: Independent Toileting: Independent Behavior: Appropriate, Pleasant, Calm, Cooperative, Oriented Communication: Talks, Understands speaking, Understands Maltese Shopping: Dependent Medication Management: Dependent Housekeeping: Needs assistance Meal Prep: Dependent Assistive Devices: BiPAP/CPAP/VPAP, Cellphone, Eyeglasses, Walker - four wheeled, Oxygen, Other (Comment), Scooter, Grab bars - toilet (whirlpool bath) Home Oxygen Company: [employer] [facility] [place] Services/Resources: Intermittent supervision Transportation: Support from family Managing Finances: Needs assistance Baseline Services/Resources Primary care clinic and provider: Patient Care Team Relationship Specialty Notifications Start Vijay Childs M.D. External Primary Care Physician Family Medicine 01/16/18 Address: [address] [place] [id number] Services/Resources: Intermittent supervision Additional Resources: Additional Services: NA Anticipated Needs Functional Status: Bathing, Meal preparation, Medication set-up/administration, Housekeeping, Shopping, Managing finances, Transportation use (drive car, use taxi/bus) Assistive Devices: None Services/Resources: Intermittent supervision Anticipated Modifications to the Patient's Home: None Transportation Needs: Support from family Does the patient need discharge transport arranged?: No Phone Number for Ride/Caregiver: Daughter to drive Anticipated Discharge Destination: [facility] or Intermediate Care Facility Referrals Initiated: Destination - Admitted Since 11/09/2024 Service Provider Request Status Services Address Phone Fax Patient [facility] - [facility] [address] [facility] [facility] [facility] [phone] -- and Durable Medical Equipment - Admitted Since 11/09/2024 Service Provider Request Status Services Address Phone Fax Patient Preferred [facility] Pending - Request Sent -- [address], [place] [address] -- clothing examiner provided Discharge Planning Guide ([id number]), information regarding the dismissal process, and the Senior Linkage Line ([place] Board on Aging) handout. ASSESSMENT / PLAN ASSESSMENT: The clothing examiner met with Marcos Perez to discuss his current hospitalization and homegoing needs. The patient was unaccompanied. The patient was a reliable historian. The role of clothing examiner was reviewed. The patient and patient's daughter reviewed his prior level of care and support system. The patient receives support from his daughter, son, and facility staff. [place]ida also lives[place]. Marcos resides with spouse/significant other in an assisted living facility with level entry. Housekeeping, grocery shopping, meal prep, and other household responsibilities have previously been completed by patient's children and facility staff. Marcos ambulates with a 4 wheeled walker. He also has a scooter. He receives 3 meals per day at hisassisted living facility and staff provide a whirlpool bath 2 times per week. Staff also provide medication management and housekeeping. In the past, patient went to [facility] for a once monthly infusion, but he now is able to receive an injection instead and that is done by the [facility] staff. He and his , Marie, both live in the assisted living facility but have separate apartments due to theneed for space for their oxygen concentrators, scooters, and other medical needs. They spend their day together but sleep in their separate apartments. There apartments are next to each other. Marcosuses oxygen and a CPAP. - At this time, the care team anticipates the patient requires the following service(s) to be reconnected: oxygen and assisted living facility. The patient and patient's daughter identified the following as their current vendor(s): [employer] for [employer]xygen and [facility] for [facility]. The patient's potential needs at dismissal based on their home setting, previous needs and responsibilities, homebound status, and relevant assessments were discussed. The patient may be safe and supported to discharge to [facility] when medically ready. Support will be provided by his daughter and facility staff. clothing examiner recommendations include: discussing needed assistance with family, friends, or neighbors . Pending hospital course and medical readiness, no barriers to dismissal have been identified at this time. The following hospital-based consult orders and/or referrals placed or requested: PT/OT. PLAN: The patient and patient's daughter agrees with the following plan. Patient's Anticipated Discharge Destination: [facility] or Intermediate Care Facility (pending clinical hospital course) Transportation upon dismissal will be provided by family--daughter to drive. clothing examiner encouraged the patient to reach out with any questions/concerns. Care Management will continue to assess for homegoing needs with the interdisciplinary team. Signed by: Ovidio Argueta, R.N., RN-BC 11/10/2024 documented in this encounter Nursing Notes * Theresa Freitas R.N. - 11/12/2024 2:09 PM CDT Problem: Risk for Compromised Skin Integrity-Other Manager Business(s) Goal: Risk for Compromised Skin Integrity-Other Manager Business(s) Outcome: Adequate for Discharge Problem: PAIN - ADULT Goal: PT VERBALIZES/DEMONSTRATES ADEQUATE COMFORT LEVEL OR BASELINE Outcome: Adequate for Discharge Problem: KNOWLEDGE DEFICIT Goal: Patient/family/caregiver demonstrates understanding of disease process, treatment plan, medications, and discharge instructions Outcome: Adequate for Discharge Problem: INFECTION - ADULT Goal: Absence of infection during hospitalization Outcome: Adequate for Discharge Problem: SKIN/TISSUE INTEGRITY Goal: Skin/Tissue integrity maintained or improved Outcome: Adequate for Discharge Goal: Oral and Nasal mucous membranes remain intact Outcome: Adequate for Discharge Problem: SAFETY ADULT Goal: Maintain a safe environment Outcome: Adequate for Discharge Problem: DISCHARGE PLANNING Goal: Patient discharge needs identified Outcome: Adequate for Discharge Problem: SAFETY ADULT - RISK FOR FALL AND OR FALL INJURY Goal: Patient remains free from fall/fall injury Outcome: Adequate for Discharge Problem: Risk for Compromised Skin Integrity-Maurice Activity Score 3 Goal: Achieve optimal activity to maintain or improve skin integrity. Outcome: Adequate for Discharge Shift Goals: Clinical Goals for the Shift: Pt will remains free from falls and VSS Identify possible barriers to meeting goals/advancing plan of care: N/A End of Shift Summary: Pt remains free from falls, VSS, pt is adequate for discharge today per provider's order and discharge education provided. * Theresa Freitas R.N. - 11/12/2024 1:42 PM CDT Discharge Nursing Note AVS and Discharge Summary reviewed. Discharge education provided including medication instructions,follow-up plan, and when to seek emergency care. Questions answered and patient/caregiver verbalized understanding. Patient and all personal belongings were discharged to assisted living, transport provided by family. Vital signs stable prior to discharge and IV access removed. No further questionsis asked by the pt. Wheelchair transport provided to the main west door. Blood pressure 132/73, pulse 87, temperature 37.1 ??C, temperature source Oral, resp. rate 18, height 167.6 cm, weight 84.6 kg, SpO2 92%. * Nydia Grove R.N. - 11/10/2024 10:30 PM CDT Shift Goals: Identify possible barriers to meeting goals/advancing plan of care: IV antibiotics. Problem: Risk for Compromised Skin Integrity-Other Manager Business(s) Goal: Risk for Compromised Skin Integrity-Other Manager Business(s) Outcome: Progressing Problem: PAIN - ADULT Goal: PT VERBALIZES/DEMONSTRATES ADEQUATE COMFORT LEVEL OR BASELINE Outcome: Progressing Problem: SKIN/TISSUE INTEGRITY Goal: Skin/Tissue integrity maintained or improved Outcome: Progressing Problem: Risk for Compromised Skin Integrity-Maurice Activity Score 3 Goal: Achieve optimal activity to maintain or improve skin integrity. Outcome: Progressing End of Shift Summary: Patient alert and oriented x 3, denies pain. This morning SpO2 dropped below 90% on RA, 1 L oxygen N/C applied with no improvement. Oxygen titrated to 2 L N/C, other vital signs remained within defined limits; Provider made aware. Patient sleepy morning hours however, up to the chair in the afternoon x 1 assist with gait belt and walker, tolerated well. Patient remains on 2 L of oxygen via N/C, wears Cpap at night. Electronically signed by: Nydia Groev R.N. 11/10/24 10:38 PM CDT * Elizabeth Poole M.S.N., RAnaNAna - 11/10/2024 5:32 AM CDT .Post-PLATFORM INSPECTOR Nursing Note PLATFORM INSPECTOR was activated for chest pain. Symptoms included acute chest pain, chills, and tremors. Primary service notified. Patient remained on unit. Plan for ongoing monitoring includes closely monitoring vital signs and follow up labs. Nurse came in room around 0400 and pt stated My chest hurts really bad. Pt was shaking and started to get chills. Pt was stating his stomach hurt so bad he couldn't lay down. PLATFORM INSPECTOR called and provider paged to bedside. Vitals signs remain Q4 and all safety measures remain in place. Electronically signed by: Ovidio Mitchell, R.N. 11/10/24 7:53 AM CDT * Nallely Alvarado R.N. - 11/09/2024 11:38 PM CDT Shift Goals: Pt will remain safe and free from falls during RN's shift Identify possible barriers to meeting goals/advancing plan of care: Pt was newly admitted to the unit and is in a new setting. End of Shift Summary: RN meet pt and admitted pt. RN showed pt where the call lights are and taughtpt how to use them. RN assessed pt's ability to move. RN turned on pt's bed alarm and kept pt's bedlow. RN brought pt snacks and denture case. Pt got help with setting up his CPAP. Electronically signed by: Nalleyl Alvarado R.N. 11/09/24 11:46 PM CDT documented in this encounter ED Notes * Nydia Taylor M.D. - 11/09/2024 7:17 PM CDT I have personally seen and examined this patient. I have fully participated in the care of this patient. I have reviewed all clinical information including history, physical exam, orders, and plan. Juan with the note of the resident. This is a pleasant 89-year-old male with a past medical history of atrial fibrillation, coronary artery disease, asthma who presents with shortness of breath. The patient has had a few days of worsening shortness of breath, increased production of pickard sputum, and need to uses home oxygen at rest, which is increased need for him. He developed chills today. No chest pain. No abdominal pain, vomiting, diarrhea. Some orthopnea. Physical exam demonstrates RLL rales. Does have +1 pitting edema but no significant worsening that he has noted. He has a leukocytosis with left shift and chest x-ray demonstrates opacities concerning for volume overload versus pneumonia. We will treat him for community-acquired pneumonia and plan for admissiongiven his increased oxygen requirement. ED Course as of 11/09/241939Nov 09, 2024 1835 Leukocytes(!): 14.7 1919 EKG in my interpretation demonstrates paced rhythm with no signs of STEMI. Final Diagnoses: as of 11/09/241939 Shortness Of Breath Pneumonia Nydia Taylor M.D. 11/09/241940 Nydia Taylor M.D. 11/13/24 1358 * Taniya Camarena R.N. - 11/09/2024 7:15 PM CDT Assumed patient care from Era CALVIN. Upon greeting patient he is alert and lying in bed. VSS. A/O x 4. Denies any needs at this time. Taniya Camarena R.N. 11/09/241921 * Diana Dalton M.D., M.B.A. 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 He arrives to the emergency department from his assisted living facility with a new increase in oxygen requirement and shortness of breath. He typically requires 2 L nasal cannula with activity, but he is now needing it at rest as well. Feels air hunger. Home medications include DuoNebs and Pulmicort daily. Did not take today. REVIEW OF SYSTEMS Constitutional: Positive for chills and fatigue. Negative for activity change, appetite change, diaphoresis, fever and unexpected weight change. HENT: Negative. Eyes: Negative. Respiratory: Positive for cough, orthopnea, shortness of breath and wheezing. Negative for apnea, hemoptysis, chest tightness and stridor. Cardiovascular: Negative. Gastrointestinal: Negative. Endocrine: Negative. Genitourinary: Negative. Musculoskeletal: Negative. Skin: Negative. Allergic/Immunologic: Negative. Neurological: Negative. Hematological: Negative. Psychiatric/Behavioral: Negative. OBJECTIVE Initial Vitals Temperature 11/09/24 1501 36.8 ??C Pulse Rate 11/09/24 1845 71 Heart Rate 11/09/24 1501 78 Resp Rate 11/09/24 1501 22 Blood Pressure 11/09/24 1501 120/68 SpO2 11/09/24 1459 97 % Pain Score 11/09/24 1846 0 - No pain PHYSICAL EXAMINATION Constitutional: Nursing note and vitals reviewed. He appears not lethargic. No distress. HENT: Head: Normocephalic and atraumatic. Mouth/Throat: Oropharynx is clear and moist. Mucous membranes are moist. Eyes: EOM are normal. Pupils are equal, round, and reactive to light. Cardiovascular: Normal rate and regular rhythm. Pulses are palpable. Capillary refill: takes less than 3 seconds Pulmonary/Chest: Effort normal. He has wheezes. Wheezes noted in bilateral lower lobes Abdominal: Soft. Bowel sounds are normal. Musculoskeletal: General: Normal range of motion. Cervical back: Normal range of motion. Neurological: Alert and oriented to person, place, and time. Skin: Skin is warm. He is not diaphoretic. Psychiatric: He has a normal mood and affect. DIAGNOSTIC STUDIES LABORATORY RESULTS: Abnormal Labs Reviewed TROPONIN T, BASELINE, 5TH GEN, P - Abnormal; Notable for the following components: Result Value Troponin T, Baseline, 5th gen 86 (*) All other components within normal limits CBC WITH DIFFERENTIAL, B - Abnormal; Notable for the following components: Leukocytes 14.7 (*) Neutrophils 11.45 (*) Monocytes 1.34 (*) Eosinophils 0.87 (*) Basophils 0.10 (*) All other components within normal limits BASIC METABOLIC PANEL, S/P - Abnormal; Notable for the following components: Sodium, P 133 (*) Chloride, P 93 (*) BUN (Blood Urea Nitrogen), P 35 (*) Estimated GFR (eGFR) 51 (*) All other components within normal limits VENOUS BLOOD GAS W/O COOX - Abnormal; Notable for the following components: pH, Venous, B 7.45 (*) All other components within normal limits PROTHROMBIN TIME (PT), P - Abnormal; Notable for the following components: Prothrombin Time, P 14.1 (*) All other components within normal limits IMAGING STUDIES: DX Chest AP or PA and Lateral 2 Views Final Result Bibasilar interstitial and alveolar opacities, left greater than right, could be pulmonary edema versus infection, new since 06/08/2024. Additional subtle haziness in the remaining lung ross. Aorticcalcifications. Prominent cardiac silhouette. Cardiac pacemaker. Probable trace right pleural effusion. Degenerative changes of the spine and shoulders. MEDICATIONS: Orders Placed This Encounter Medications ipratropium-albuteroL 0.5-2.5 mg/3 mL nebulizer solution 3 mL (DuoNeb) cefTRIAXone injection 2 g (Rocephin) Drug Monitoring Program:: Pharmacist to adjust medication dosing based on indication and drug clearance factors. doxycycline in NaCl 0.9% 100 ML IVPB (Mini-Bag Plus) 100 mg (Vibramycin) Drug Monitoring Program:: Pharmacist to adjust medication dosing based on indication and drug clearance factors. EKG Interpretation: Atrial-sensed ventricular-paced rhythm Demand atrial pacing; Interpretation is based on intrinsic rhythm Sinus rhythm When compared with ECG of 07-Oct-2023 09:37, Significant changes have occurred ASSESSMENT/PLAN Mr. Perez is a 89 y.o. male presenting with shortness of breath and new oxygen requirement at rest found to have pneumonia. Ddx includes but not limited to ACS, CHF, arrhythmia, COPD, asthma, pneumonia, PE, PTX, anemia, anxiety. Chest x-ray notes bibasilar opacities consistent with pneumonia. Given elevated leukocytosis, left shift of neutrophils, new oxygen requirement, negative BNP, rigors, likely diagnosis of pneumonia. Decision was made to admit patient. Given the patient's presenting symptoms, severity of illness, and history, thorough evaluation was initiated. Vitals on arrival: Blood pressure 127/72, pulse 71, temperature 36.8 ??C, temperature source Oral, resp. rate 23, SpO2 97%. There is no height or weight on file to calculate BMI. Final Diagnoses: as of 11/09/242135 Shortness Of Breath Pneumonia CLINICAL IMPRESSION There were no encounter diagnoses. Diana Dalton M.D., M.B.A. Resident 11/09/242142 * Lindsey Parker R.N. - 11/09/2024 3:03 PM CDT Patient arrived to the ED from his assisted Living facility with c/o SOB, that started since last night. He is typically on 2LNC baseline for eosinophilic asthma, which he uses supplemental oxygen for activity. He now reports needing oxygen at rest, while still reporting a feeling of air hunger. Hetakes DuoNebs and Pulmicort daily, which he reports not taking today. BP 120/68 (BP Location: Right arm, Patient Position: Sitting) Temp 36.8 ??C (98.2 ??F) (Oral) Resp 22 SpO2 96% Medical History[1] [1] Past Medical History: Diagnosis Date Anxiety Generalized Disorder Apnea Sleep Obstructive Arrhythmia Asthma NOS severe eosinophilic Atrial Fibrillation Unspecified (HCC) BenignProstatic Hyperplasia Localized Blood Transfusion No Diagnosis Cataract Concussion Loss Of Consciousness Unspecified Duration Initial Congestive Heart Failure (HCC) 02/15/2019 Degeneration Macular Depressive Disorder Gastroesophageal Reflux Disease NOS Hemorrhage Gastrointestinal bleeding ulcers when younger Hyperlipidemia Hypertension NOS Insufficiency 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 11/09/24 1506 documented in this encounter Miscellaneous Notes * Hospital Course - Gayatri Yeboah P.A.-C., M.S. - 11/09/2024 10:13 PM CDT Marcos Perez is a 89 y.o. male admitted for community-acquired pneumonia. 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 Baseline oxygen requirement is 2 L with CPAP at night and with activity, but none at rest prior to this illness. He resides at an assisted living facility in [place] but receives specialty care here at [facility]. He presented to the emergency department 11/09 for evaluation of cough and dyspnea. At baseline, he requires 2 L of supplemental oxygen with his CPAP at bedtime and with activity but none with rest. He notes over the past 3 days he has been more dyspneic requiring 2 L at rest and has had a productive cough of santana phlegm. He has been using his DuoNebs 4 times daily which assist with his symptom management however he started to feel generally weak prompting evaluation in the emergency department. Upon arrival to the emergency department, he was hypoxic requiring 2 L of supplemental oxygen at rest but other vitals were within normal limits. VBG within normal limits. CBC showing leukocytosis with mild neutrophilic predominance. BMP showing mild hyponatremia. Troponins were elevated but ultimat mildred plateaued, and no new EKG changes at baseline. NTPro BNP normal. Chest x-ray obtained showing pulmonary edema vs consolidation of the left lower lobe. He was treated with ceftriaxone and doxycycline for concern of community- acquired pneumonia. He wasadmitted to the Medicine 8 service. He remained afebrile. He improved to the point that his cough was no longer productive and thus sputum culture was never collected. Respiratory therapy re- evaluated the patient and he did not have increased oxygen requirements above his baseline. He was deemed medically stable for discharge on 11/12/2024. He will complete an oral antibiotics for an additional 6 days. documented in this encounter Plan of Treatment Upcoming Encounters Date Type Department Care Team (Latest Contact Info) Description 01/04/2025 7:45 AM RN CVICU Appointment Department of Radiology, [facility], in [place], [place] [address] [place] [phone] Blanco Spivey M.D. [address] [place] [phone] Discharge Disposition: Home or Self Care 01/04/2025 8:30 AM RN CVICU Diagnostic Division of Pulmonary Medicine in [place], [place] [address] [place] [phone] Blanco Spivey M.D. [address] [place] [phone] 01/04/2025 12:30 PM RN CVICU Office Visit Division of Pulmonary Medicine in [place], [place] [address] [place] [phone] Blanco Spivey M.D. [address] [place] [phone] 02/11/2025 10:15 AM RN CVICU Clinical Communication Virtual Review in [place], [place] 200 [place] [phone] 02/12/2025 11:15 AM RN CVICU Appointment Department of Radiology, [facility] in [place], [place] [address] [place] [phone] Lilli Moore M.D. [address] [place] [phone] 02/12/2025 11:50 AM RN CVICU Appointment Department of Laboratory Medicine and Pathology, [facility], in [place], [place] [address] [place] [phone] Lilli Moore M.D. [address] [place] [phone] 02/12/2025 1:30 PM RN CVICU Office Visit Division of Pulmonary Medicine in [place], [place] [address] [place] [phone] Lilli Moore M.D. [address] [place] [phone] documented as of this encounter Procedures Procedure Name Priority Date/Time Associated Diagnosis Comments CBC WITH DIFFERENTIAL, B Routine 11/11/2024 10:36 PM CDT BASIC METABOLIC PANEL, S/P Routine 11/11/2024 10:36 PM CDT RT TO ARRANGE FOR HOME DME Routine 11/11/2024 11:14 AM CDT ADULT OXYGEN THERAPY Routine 11/11/2024 8:00 AM CDT CBC WITHOUT DIFFERENTIAL, B Routine 11/10/2024 10:58 PM CDT BASIC METABOLIC PANEL, S/P Routine 11/10/2024 10:58 PM CDT ADULT OXYGEN THERAPY Routine 11/10/2024 8:01 PM CDT ADULT OXYGEN THERAPY Routine 11/10/2024 8:01 AM CDT TROPONIN T, 2H/6H REFLEX, 5TH GEN, P Timed 11/10/2024 8:00 AM CDT TROPONIN T, BASELINE, 5TH GEN, P STAT 11/10/2024 5:06 AM CDT ECG STAT 11/10/2024 4:51 AM CDT GLUCOSE POCT, B Routine 11/10/2024 4:43 AM CDT TROPONIN T, 6H, 5TH GEN, P Timed 11/09/2024 11:32 PM CDT CBC WITH DIFFERENTIAL, B Routine 11/09/2024 11:32 PM CDT MAGNESIUM, S Routine 11/09/2024 11:32 PM CDT BASIC METABOLIC PANEL, S/P Routine 11/09/2024 11:32 PM CDT PATIENT'S OWN CPAP/BIPAP Routine 11/09/2024 10:48 PM CDT ADULT OXYGEN THERAPY Routine 11/09/2024 9:44 PM CDT ADULT OXYGEN THERAPY Routine 11/09/2024 9:44 PM CDT TROPONIN T, 2H/6H REFLEX, 5TH GEN, P Timed 11/09/2024 7:19 PM CDT TROPONIN T, BASELINE, 5TH GEN, P STAT 11/09/2024 4:49 PM CDT PATIENT STATUS STAT 11/09/2024 4:49 PM CDT VENOUS BLOOD GAS W/O COOX STAT 11/09/2024 4:49 PM CDT NT-PRO B-TYPE NATRIURETIC PEPTIDE (BNP), S STAT 11/09/2024 4:49 PM CDT PROTHROMBIN TIME (PT), P STAT 11/09/2024 4:49 PM CDT CBC WITH DIFFERENTIAL, B STAT 11/09/2024 4:49 PM CDT BASIC METABOLIC PANEL, S/P STAT 11/09/2024 4:49 PM CDT DX CHEST AP OR PA AND LATERAL 2 VIEWS RAD - Semiurgent (Fast; most ED patients; some inpatients) 11/09/2024 3:24 PM CDT ECG STAT 11/09/2024 3:01 PM CDT documented in this encounter Results * (ABNORMAL) Basic Metabolic Panel (11/11/2024 10:36 PM CDT) [facility] Potassium, S 3.6 3.6 - 5.2 mmol/L 11/12/2024 12:57 AM CDT DTL Sodium, S 137 135 - 145 mmol/L 11/12/2024 12:57 AM CDT DTL Chloride, S 95(L) 98 - 107 mmol/L 11/12/2024 12:57 AM CDT DTL Bicarbonate, S 26 22 - 29 mmol/L 11/12/2024 12:57 AM CDT DTL Anion Gap 16(H) 7 - 15 11/12/2024 12:57 AM CDT DTL BUN (Blood Urea Nitrogen), S 28(H) 8 - 24 mg/dL 11/12/2024 12:57 AM CDT DTL Creatinine 1.25 0.74 - 1.35 mg/dL 11/12/2024 12:57 AM CDT DTL Estimated GFR (eGFR) 55(L) >=60 mL/min/BSA 11/12/2024 12:57 AM CDT DTL Comment: Estimated GFR calculated using the 2020 CKD_EPI creatinine equation. Calcium, Total, S 8.5(L) 8.8 - 10.2 mg/dL 11/12/2024 12:57 AM CDT DTL Glucose, S 131 70 - 140 mg/dL 11/12/2024 12:57 AM CDT DTL Blood (Blood, Venous) 11/11/2024 10:36 PM CDT 11/11/2024 11:36 PM CDT Gayatri Yeboah P.A.-C., M.S. LAB BLOOD [place] [address], [facility] [address] [place] [address] * (ABNORMAL) CBC with Differential, Blood (11/11/2024 10:36 PM CDT) Hemoglobin 11.8(L) 13.2 - 16.6 g/dL 11/11/2024 11:36 PM CDT DTL Hematocrit 36.9(L) 38.3 - 48.6 % 11/11/2024 11:36 PM CDT DTL Erythrocytes 4.22(L) 4.35 - 5.65 x10(12)/L 11/11/2024 11:36 PM CDT DTL MCV 87.4 78.2 - 97.9 fL 11/11/2024 11:36 PM CDT DTL RBC Distrib Width 13.8 11.8 - 14.5 % 11/11/2024 11:36 PM CDT DTL Platelet Count 245 135 - 317 x10(9)/L 11/11/2024 11:36 PM CDT DTL Leukocytes 14.3(H) 3.4 - 9.6 x10(9)/L 11/11/2024 11:36 PM CDT DTL Neutrophils 11.56(H) 1.56 - 6.45 x10(9)/L 11/11/2024 11:36 PM CDT DHPM Lymphocytes 0.72(L) 0.95 - 3.07 x10(9)/L 11/11/2024 11:36 PM CDT DTL Monocytes 1.61(H) 0.26 - 0.81 x10(9)/L 11/11/2024 11:36 PM CDT DTL Eosinophils 0.37 0.03 - 0.48 x10(9)/L 11/11/2024 11:36 PM CDT DTL Basophils 0.05 0.01 - 0.08 x10(9)/L 11/11/2024 11:36 PM CDT DTL Blood (Blood, Venous) 11/11/2024 10:36 PM CDT 11/11/2024 11:19 PM CDT Gayatri Yeboah P.A.-C., M.S. LAB BLOOD ADD-ON Final Result [facility] [address] [place] [address], [facility] DTL [facility] [address] [place] [address] DHPM [facility] [address] [place] [address] * (ABNORMAL) CBC without Differential (11/10/2024 10:58 PM CDT) [facility] Hemoglobin 13.3 13.2 - 16.6 g/dL 11/10/2024 11:46 PM CDT DTL Hematocrit 40.3 38.3 - 48.6 % 11/10/2024 11:46 PM CDT DTL Erythrocytes 4.61 4.35 - 5.65 x10(12)/L 11/10/2024 11:46 PM CDT DTL MCV 87.4 78.2 - 97.9 fL 11/10/2024 11:46 PM CDT DTL RBC Distrib Width 14.1 11.8 - 14.5 % 11/10/2024 11:46 PM CDT DTL Platelet Count 285 135 - 317 x10(9)/L 11/10/2024 11:46 PM CDT DTL Leukocytes 13.2(H) 3.4 - 9.6 x10(9)/L 11/10/2024 11:46 PM CDT DTL Blood (Blood, Venous) 11/10/2024 10:58 PM CDT 11/10/2024 11:28 PM CDT Gayatri Yeboah P.A.-C., M.S. LAB BLOOD ADD-ON Final Result [facility] [address] [place] [address], [facility] [place] [address] [place] [address] * (ABNORMAL) Basic Metabolic Panel (11/10/2024 10:58 PM CDT) Potassium, S 3.6 3.6 - 5.2 mmol/L 11/11/2024 12:08 AM CDT DTL Sodium, S 136 135 - 145 mmol/L 11/11/2024 12:08 AM CDT DTL Chloride, S 95(L) 98 - 107 mmol/L 11/11/2024 12:08 AM CDT DTL Bicarbonate, S 27 22 - 29 mmol/L 11/11/2024 12:08 AM CDT DTL Anion Gap 14 7 - 15 11/11/2024 12:08 AM CDT DTL BUN (Blood Urea Nitrogen), S 28(H) 8 - 24 mg/dL 11/11/2024 12:08 AM CDT DTL Creatinine 1.38(H) 0.74 - 1.35 mg/dL 11/11/2024 12:08 AM CDT DTL Estimated GFR (eGFR) 49(L) >=60 mL/min/BSA 11/11/2024 12:08 AM CDT DTL Comment: Estimated GFR calculated using the 2020 CKD_EPI creatinine equation. Calcium, Total, S 8.8 8.8 - 10.2 mg/dL 11/11/2024 12:08 AM CDT DTL Glucose, S 112 70 - 140 mg/dL 11/11/2024 12:08 AM CDT DTL Blood (Blood, Venous) 11/10/2024 10:58 PM CDT 11/10/2024 11:44 PM CDT Gayatri Yeboah P.A.-C., M.S. LAB BLOOD ADD-ON Final Result Performing Organization Address [facility] Co de Phone Number [facility] [address] DTL [facility] [address] [place] [address] * (ABNORMAL) Troponin T, 2 Hour with 6 Hour Reflex, 5th Gen (11/10/2024 8:00 AM CDT) Troponin T, 2 hr, 5th gen 83(H) <=15 ng/L 11/10/2024 8:27 AM CDT STMA 2H Delta -1 ng/L 11/10/2024 8:27 AM CDT STMA Comment:6 hour collection no t indicated. 2H Delta Interp Not Changing 11/10/2024 8:27 AM CDT STMA Blood 11/10/2024 8:00 AM CDT 11/10/2024 8:06 AM CDT Darrian CABALLERO, P.A.-C. LAB BLOOD TROPONIN F inal Result Performing Organization Address [facility]/ZIP Co de Phone Number [facility] [address] [place] [address] * (ABNORMAL) Troponin T, Baseline with 2 Hour/6 Hour Reflex Biomarker Panel (11/10/2024 5:06 AM CDT) Troponin T, Baseline, 5th gen 84(H) <=15 ng/L 11/10/2024 5:29 AM CDT ST[facility] Blood (Blood, Venous) 11/10/2024 5:06 AM CDT 11/10/2024 5:13 AM CDT Darrian CABALLERO, P.A.-C. LAB BLOOD TROPONIN F inal Result Performing Organization Address City/[facility]/ZIP Co de Phone Number [facility] [address] [place] [address], [facility] [address] [place] [address] * ECG 12 Lead (11/10/2024 4:51 AM CDT) Pathologist [facility] Ventricular Rate ECG/Min 76 BPM MUSE [place] Interval 150 ms MUSE QRSD Interval 176 ms MUSE QT Interval 440 ms MUSE QTC Interval 495 ms MUSE P [place] 55 degrees MUSE R [place] -78 degrees MUSE T Wave [place] 78 degrees MUSE 11/10/2024 4:51 AM CDT 11/10/2024 4:56 AM CDT Impressions MUSE - 11/10/2024 4:56 AM CDT Atrial-sensed ventricular-paced rhythm Sinus rhythm When compared with ECG of 09-Nov-2024 15:01, No significant change was found Reviewed by HARREIT Rush Narrative Procedure Note Tevin Romero M.D., M.P.H. - 11/10/2024 IMPRESSION: Atrial-sensed ventricular-paced rhythm Sinus rhythm When compared with ECG of 09-Nov-2024 15:01, No significant change was found Reviewed by HARRIET Rush us Sebas Rodriguez M.D. ECG ORDERABLES Final Result MUSE NA * Glucose, POCT (11/10/2024 4:43 AM CDT) Glucose, POCT, B 110 70 - 140 mg/dL 11/10/2024 5:16 AM CDT PCLX Blood 11/10/2024 4:43 AM CDT 11/10/2024 5:16 AM CDT us Unknown Provider LAB POCT ORDERABLES-MANUAL Kayli l Result POC [facility] [address] [place] [address], [facility] PCLX [facility] POC [address] [place] [address] * Magnesium (11/09/2024 11:32 PM CDT) Magnesium, S 2.2 1.7 - 2.3 mg/dL 11/10/2024 4:46 AM CDT DTL Blood (Blood, Venous) 11/09/2024 11:32 PM CDT 11/09/2024 11:51 PM CDT Diallo Crum M.D. LAB BLOOD ADD-ON Kayli l Result [facility] [address] [place] [address], [facility] DTL [facility] [address] [place] [address] * (ABNORMAL) Basic Metabolic Panel (11/09/2024 11:32 PM CDT) Potassium, S 4.1 3.6 - 5.2 mmol/L 11/10/2024 4:46 AM CDT DTL Sodium, S 137 135 - 145 mmol/L 11/10/2024 4:46 AM CDT DTL Chloride, S 96(L) 98 - 107 mmol/L 11/10/2024 4:46 AM CDT DTL Bicarbonate, S 25 22 - 29 mmol/L 11/10/2024 4:46 AM CDT DTL Anion Gap 16(H) 7 - 15 11/10/2024 4:46 AM CDT DTL BUN (Blood Urea Nitrogen), S 32(H) 8 - 24 mg/dL 11/10/2024 4:46 AM CDT DTL Creatinine 1.42(H) 0.74 - 1.35 mg/dL 11/10/2024 4:46 AM CDT DTL Estimated GFR (eGFR) 48(L) >=60 mL/min/BSA 11/10/2024 4:46 AM CDT DTL Comment: Estimated GFR calculated using the 2020 CKD_EPI creatinine equation. Calcium, Total, S 8.8 8.8 - 10.2 mg/dL 11/10/2024 4:46 AM CDT DTL Glucose, S 113 70 - 140 mg/dL 11/10/2024 4:46 AM CDT DTL Blood (Blood, Venous) 11/09/2024 11:32 PM CDT 11/09/2024 11:51 PM CDT Diallo Crum M.D. LAB BLOOD ADD-ON Kayli l Result [address] [address], [facility] [place] [address] * (ABNORMAL) CBC with Differential, Blood (11/09/2024 11:32 PM CDT) Hemoglobin 12.8(L) 13.2 - 16.6 g/dL 11/10/2024 12:28 AM CDT DTL Hematocrit 39.1 38.3 - 48.6 % 11/10/2024 12:28 AM CDT DTL Erythrocytes 4.46 4.35 - 5.65 x10(12)/L 11/10/2024 12:28 AM CDT DTL MCV 87.7 78.2 - 97.9 fL 11/10/2024 12:28 AM CDT DTL RBC Distrib Width 14.1 11.8 - 14.5 % 11/10/2024 12:28 AM CDT DTL Platelet Count 299 135 - 317 x10(9)/L 11/10/2024 12:28 AM CDT DTL Leukocytes 12.4(H) 3.4 - 9.6 x10(9)/L 11/10/2024 12:28 AM CDT DTL Neutrophils 9.50(H) 1.56 - 6.45 x10(9)/L 11/10/2024 12:27 AM CDT DHPM Lymphocytes 0.97 0.95 - 3.07 x10(9)/L 11/10/2024 12:28 AM CDT DTL Monocytes 1.15(H) 0.26 - 0.81 x10(9)/L 11/10/2024 12:28 AM CDT DTL Eosinophils 0.74(H) 0.03 - 0.48 x10(9)/L 11/10/2024 12:28 AM CDT DTL Basophils 0.05 0.01 - 0.08 x10(9)/L 11/10/2024 12:28 AM CDT DTL Blood (Blood, Venous) 11/09/2024 11:32 PM CDT 11/09/2024 11:51 PM CDT Diallo Crum M.D. LAB BLOOD ADD-ON Kayli l Result [address] [address], [facility] DTL [facility] [address] [place] [address] [facility] [address] [place] [address] * (ABNORMAL) Troponin T, 6h, 5th Gen (11/09/2024 11:32 PM CDT) Troponin T, 6 hr, 5th gen 99(H) <=15 ng/L 11/09/2024 11:56 PM CDT STMA 6H Delta 13(A) ng/L 11/09/2024 11:56 PM CDT STMA 6H Delta Interp Changing(A ) 11/09/2024 11:56 PM CDT STMA Comment:Evaluate for acute m yocardial injury Blood 11/09/2024 11:3 2 PM CDT 11/09/2024 11:38 PM CDT Breanna Noyola P.A.-C. LAB BLOOD TROPONIN Kayli l Result Performing Organization Address [facility] Co de Phone Number [facility] [address] [place], [place] [id number] [place], [place] [id number] [facility] [address] [place] [address] * (ABNORMAL) Troponin T, 2 Hour with 6 Hour Reflex, 5th Gen (11/09/2024 7:19 PM CDT) Troponin T, 2 hr, 5th gen 82(H) <=15 ng/L 11/09/2024 7:58 PM CDT STMA 2H Delta -4 ng/L 11/09/2024 7:58 PM CDT STMA Comment:6 hour collection pe nding. 2H Delta Interp Indeterminate 11/09/2024 7:58 PM CDT STMA Comment:Indeterminate delta, additional sample suggested Blood 11/09/2024 7:19 PM CDT 11/09/2024 7:36 PM CDT Breanna Noyola P.A.-C. LAB BLOOD TROPONIN Kayli l Result Performing Organization Address [facility] Co de Phone Number [facility] [address] [place] [address], [facility] [address] [place] [address] * Patient Status (11/09/2024 4:49 PM CDT) FIO2 0.21 0.21=AIR 11/09/2024 4:54 PM CDT STMA O2 Flow 2.0 L/min 11/09/2024 4:54 PM CDT STMA Device NC 11/09/2024 4:54 PM CDT STMA Spont. breaths/min 20 11/09/2024 4:54 PM CDT STMA Blood 11/09/2024 4:49 PM CDT 11/09/2024 4:54 PM CDT Breanna Noyola P.A.-C. LAB BLOOD NON ADD-ON Fi nal Result Performing Organization Address City/[facility]/ZIP Co de Phone Number [facility] [address] [place], [place] [phone] [place] [address] [address] [place] [address] * (ABNORMAL) Prothrombin Time (PT) (11/09/2024 4:49 PM CDT) Prothrombin Time, P 14.1(H) 9.4 - 12.5 sec 11/09/2024 5:02 PM CDT [facility] INR 1.3 0.9 - 1.1 11/09/2024 5:02 PM CDT [facility] Comment: ----ADDITIONAL INFORMATION---- Standard intensity warfarin therapeutic range: 2.0 to 3.0 High intensity warfarin therapeutic range: 2.5 to 3.5 Blood (Blood, Venous) 11/09/2024 4:49 PM CDT 11/09/2024 4:54 PM CDT Breanna Noyola P.A.-C. LAB BLOOD ADD-ON Final Result Performing Organization Address [facility] Co de Phone Number [facility] [address] [place] [address], [facility] [address] [place] [address] * NT-Pro B-Type Natriuretic Peptide (BNP) (11/09/2024 4:49 PM CDT) NT-Pro BNP 313 <=540 pg/mL 11/09/2024 5:21 PM CDT [facility] Comment: NT-proBNP values less than 300 pg/mL have a 99% negative predictive value for excluding acute congestive heart failure. A cutoff of 1200 pg/mL for patients with an eGFR<60 yields a diagnostic sensitivity and specificity of 89% and 72% for acute congestive heart failure. A diagnostic NT-proBNP cutoff of 1800 pg/mL has been suggested in adults over 75 years of age in the absence of renal failure. Blood (Blood, Venous) 11/09/2024 4:49 PM CDT 11/09/2024 4:54 PM CDT Breanna Noyola P.A.-C. LAB BLOOD ADD-ON Final Result Performing Organization Address [facility] Co de Phone Number [facility] [address] [place], [place] [phone] [place] [address] [address] [place] [address] * (ABNORMAL) Blood Gas without Coox, Venous (11/09/2024 4:49 PM CDT) pO2, Venous, B 19 Not applicable mm Hg 11/09/2024 4:56 PM CDT STMA pCO2, Venous, B 49 41 - 51 mm Hg 11/09/2024 4:56 PM CDT STMA pH, Venous, B 7.45(H) 7.32 - 7.43 pH 025 4:56 PM CDT STMA Base Excess, Venous, B 9 Not applicable mmol/L 11/09/2024 4:56 PM CDT STMA HCO3, Venous, B 33 Not applicable mmol/L 11/09/2024 4:56 PM CDT STMA Sample Site, Venous, B Venipunct 11/09/2024 4:54 PM CDT STMA Blood (Blood, Venous) 11/09/2024 4:49 PM CDT 11/09/2024 4:54 PM CDT Breanna Noyola P.A.-C. LAB BLOOD NON ADD-ON Fi nal Result Performing Organization Address [facility]/ZIP Co de Phone Number [facility] [address] [place] [address], [facility] [address] [place] [address] * (ABNORMAL) Basic Metabolic Panel (11/09/2024 4:49 PM CDT) Potassium, P 4.3 3.6 - 5.2 mmol/L 11/09/2024 5:16 PM CDT STMA Sodium, P 133(L) 135 - 145 mmol/L 11/09/2024 5:16 PM CDT STMA Chloride, P 93(L) 98 - 107 mmol/L 11/09/2024 5:16 PM CDT STMA Bicarbonate, P 28 22 - 29 mmol/L 11/09/2024 5:16 PM CDT STMA Anion Gap, P 12 7 - 15 11/09/2024 5:16 PM CDT STMA BUN (Blood Urea Nitrogen), P 35(H) 8 - 24 mg/dL 11/09/2024 5:16 PM CDT STMA Creatinine 1.34 0.74 - 1.35 mg/dL 11/09/2024 5:16 PM CDT STMA Estimated GFR (eGFR) 51(L) >=60 mL/min/BSA 11/09/2024 5:16 PM CDT STMA Comment: Estimated GFR calculated using the 2020 CKD_EPI creatinine equation. Calcium, Total, P 9.0 8.8 - 10.2 mg/dL 11/09/2024 5:16 PM CDT STMA Glucose, P 112 70 - 140 mg/dL 11/09/2024 5:16 PM CDT STMA Blood (Blood, Venous) 11/09/2024 4:49 PM CDT 11/09/2024 4:54 PM CDT Breanna Noyola P.A.-C. LAB BLOOD ADD-ON Final Result [facility] [address] [place] [address], [facility] [address] [place] [address] * (ABNORMAL) CBC with Differential, Blood (11/09/2024 4:49 PM CDT) Hemoglobin 13.3 13.2 - 16.6 g/dL 11/09/2024 5:00 PM CDT STMA Hematocrit 40.9 38.3 - 48.6 % 11/09/2024 5:00 PM CDT STMA Erythrocytes 4.61 4.35 - 5.65 x10(12)/L 11/09/2024 5:00 PM CDT STMA MCV 88.7 78.2 - 97.9 fL 11/09/2024 5:00 PM CDT STMA RBC Distrib Width 14.1 11.8 - 14.5 % 11/09/2024 5:00 PM CDT STMA Platelet Count 303 135 - 317 x10(9)/L 11/09/2024 5:00 PM CDT STMA Leukocytes 14.7(H) 3.4 - 9.6 x10(9)/L 11/09/2024 5:00 PM CDT STMA Neutrophils 11.45(H) 1.56 - 6.45 x10(9)/L 11/09/2024 5:00 PM CDT DHPM Lymphocytes 0.97 0.95 - 3.07 x10(9)/L 11/09/2024 5:00 PM CDT STMA Monocytes 1.34(H) 0.26 - 0.81 x10(9)/L 11/09/2024 5:00 PM CDT STMA Eosinophils 0.87(H) 0.03 - 0.48 x10(9)/L 11/09/2024 5:00 PM CDT STMA Basophils 0.10(H) 0.01 - 0.08 x10(9)/L 11/09/2024 5:00 PM CDT STMA Blood (Blood, Venous) 11/09/2024 4:49 PM CDT 11/09/2024 4:54 PM CDT Breanna Noyola P.A.-C. LAB BLOOD ADD-ON Final Result [facility] [address] [place] [address], [place] STMA [facility] [address] [place] [address] [facility] [address] [place] [address] * (ABNORMAL) Troponin T, Baseline with 2 Hour/6 Hour Reflex Biomarker Panel (11/09/2024 4:49 PM CDT) Pathologist [facility] Troponin T, Baseline, 5th gen 86(H) <=15 ng/L 11/09/2024 5:21 PM CDT STMA Blood (Blood, Venous) 11/09/2024 4:49 PM CDT 11/09/2024 4:54 PM CDT Breanna Noyola P.A.-C. LAB BLOOD TROPONIN Kayli l Result [facility] [address] [place] [address], [facility] STMA [facility] [address] [place] [address] * DX Chest AP or PA and Lateral 2 Views (11/09/2024 3:24 PM CDT) Anatomical Region Laterality Modality Chest, Thoracic RST LOS, Tho racic ARZ LOS, Thoracic FLA LOS N/A Digital Radiography Impressions 11/09/2024 3:32 PM CDT Bibasilar interstitial and alveolar opacities, left greater than right, could be pulmonary edema versus infection, new since 06/08/2024. Additional subtle haziness in the remaining lung ross. Aortic calcifications. Prominent cardiac silhouette. Cardiac pacemaker. Probable trace right pleural effusion. Degenerative changes of the spine and shoulders. Narrative 11/09/2024 3:32 PM CDT EXAM: DX CHEST AP OR PA AND LATERAL 2 VIEWS Procedure Note Adrian Arrieta M.D. - 11/09/2024 EXAM: DX CHEST AP OR PA AND LATERAL 2 VIEWS IMPRESSION: Bibasilar interstitial and alveolar opacities, left greater than right,could be pulmonary edema versus infection, new since 06/08/2024. Additionalsubtle haziness in the remaining lung ross. Aortic calcifications.Prominent cardiac silhouette. Cardiac pacemaker. Probable trace rightpleural effusion. Degenerative changes of the spine and shoulders. Nydia Taylor M.D. IMG DIAGNOSTIC IMAGING PROCEDURES Final Result * ECG 12 Lead (11/09/2024 3:01 PM CDT) Ventricular Rate ECG/Min 78 BPM MUSE [place] Interval 140 ms MUSE QRSD Interval 168 ms MUSE [place] Interval 436 ms MUSE QTC Interval 497 ms MUSE P [place] 63 degrees MUSE R [place] -83 degrees MUSE T Wave [place] 61 degrees MUSE 11/09/2024 3:01 PM CDT 11/09/2024 3:10 PM CDT Impressions MUSE - 11/09/2024 3:10 PM CDT Atrial-sensed ventricular-paced rhythm Demand atrial pacing; Interpretation is based on intrinsic rhythm Sinus rhythm When compared with ECG of 07-Oct-2023 09:37, Significant changes have occurred Reviewed by HARRIET Tate Narrative Procedure Note Sim Shaw M.D. - 11/09/2024 IMPRESSION: Atrial-sensed ventricular-paced rhythm Demand atrial pacing; Interpretation is based on intrinsic rhythm Sinus rhythm When compared with ECG of 07-Oct-2023 09:37, Significant changes have occurred Reviewed by HARRIET Tate Nydia Taylor M.D. ECG ORDERABLES Final Result MUSE NA documented in this encounter Visit Diagnoses Diagnosis Pneumonia- Primary Shortness Of Breath Pneumonia [employer] (Current) Anticoagulant Treatment Atrial Fibrillation Paroxysmal (HCC) Apnea Sleep Obstructive Hyperlipidemia Gastroesophageal Reflux Disease NOS Depressive Disorder Prolonged QT Interval Congestive Heart Failure (HCC) Acute Diastolic (Congestive) Heart Failure (HCC) Hypoxia Shortness Of Breath Cough Acute Eosinophilic Asthma (HCC) Failure Renal Acute (Acute Kidney Injury) documented in this encounter Admitting Diagnoses Diagnosis Pneumonia Shortness Of Breath documented in this encounter Administered Medications Inactive Administered Medications - up to 3 most recent administrations Medication Order MAR Action Action Date Dose Rate Site albuterol nebulizer solution 2.5 mg 2.5 mg, nebulization, Every 4 hours PRN, wheezing, shortness of breath, Starting on Tue11/09/24 at 2144 Given 11/11/2024 8:39 PM CDT 2.5 mg budesonide 0.25 mg/2 mL nebulizer solution 0.25 mg (Pulmicort) 0.25 mg, nebulization, 2 times daily (RT), First dose on Tue11/09/24 at 2200, Rinse mouth with water after use to reduce aftertaste and incidence of candidiasis. Do not swallow. Given 11/12/2024 10:50 AM CDT 0.25 mg Given 11/11/2024 6:16 PM CDT 0.25 mg Given 11/11/2024 6:42 AM CDT 0.25 mg cefTRIAXone in dextrose (iso osm) IVPB 2 g (Rocephin) 2 g, intravenous, at 200 mL/hr, Administer over 15 Minutes, Every 24 hours, First dose (after last reorder) on 11/10/24 at 1900, For 4 days, Drug Monitoring Program: Pharmacist to adjust medication dosing based on indication and drug clearance factors., Indications: Respiratory tract infection, community acquiredIndications:Respiratory tract infection, community acquired New Bag 11/11/2024 7:10 PM CDT 2 g 2 00 mL/hr New Bag 11/10/2024 6:17 PM CDT 2 g 200 mL/hr cefTRIAXone injection 2 g (Rocephin) 2 g, intravenous, Once, On Tue11/09/24 at 1857, For 1 dose, [place] IV push over 3 minutes., Drug Monitoring Program: Pharmacist to adjust medication dosing based on indication and drug clearance factors., Indications: Respiratory tract infection, community acquiredIndications:Respiratory tract infection, community acquired Given 11/09/2024 7:26 PM CDT 2 g doxycycline in NaCl 0.9% 100 ML IVPB (Mini-Bag Plus) 100 mg (Vibramycin) 100 mg, intravenous, at 100 mL/hr, Administer over 60 Minutes, Once, On Tue11/09/24 at 1857, For 1 dose, Mini-Bag Plus bag, Drug Monitoring Program: Pharmacist to adjust medication dosing based on indication and drug clearance factors., Indications: Respiratory tract infection, community acquiredIndications:Respiratory tract infection, community acquired New Bag 11/09/2024 7:26 PM CDT 100 m g 100 mL/hr doxycycline monohydrate tablet 100 mg (Avidoxy) 100 mg, oral, 2 times daily before morning and evening meals, First dose on Tue11/10/24 at 0700, For 9 doses, Administer 2 hours before or 6 hours after taking magnesium, aluminum (antacids, laxatives) or calcium and iron supplements (multivitamins). Ensure patient remains upright for 30 minutes post-dose., Drug Monitoring Program: Pharmacist to adjust medication dosing based on indication and drug clearance factors., Indications: Respiratory tract infection, community acquiredIndications:Respiratory tract infection, community acquired Given 11/12/2024 8:10 AM CDT 100 mg Given 11/11/2024 4:10 PM CDT 100 mg Given 11/11/2024 6:40 AM CDT 100 mg finasteride tablet 5 mg (Proscar) 5 mg, oral, Daily, First dose on 11/10/24 at 0900, See tube feeding guidelines for tube feeding administration instructions. Given 11/12/2024 8:10 AM CDT 5 mg Given 11/11/2024 10:53 AM CDT 5 mg Given 11/10/2024 8:00 AM CDT 5 mg fluticasone furoate-vilanteroL 100-25 mcg/actuation inhaler 1 puff (Breo Ellipta) 1 puff, inhalation, Daily (RT), First dose on 11/10/24 at 0800, Rinse mouth with water after use to reduce aftertaste and incidence of candidiasis. Do not swallow. 1. Hold device upright in right hand with rough edge. 2. Using left hand open lid (toward left) until click is heard. 3. Tilt inhaler flat so air entrainment vents & counter face up. 4. Inhale to full breath somewhat fast. 5. Hold breath up to 10 seconds. 6. Remove inhaler from mouth. 7. Close lid. Given 11/12/2024 8:11 AM CDT 1 puff Given 11/11/2024 10:55 AM CDT 1 puff Given 11/10/2024 7:58 AM CDT 1 puff ipratropium-albuteroL 0.5-2.5 mg/3 mL nebulizer solution 3 mL (DuoNeb) 3 mL, nebulization, Once as needed, wheezing, Starting on Tue11/09/24 at 1501, For 1 dose Given 11/09/2024 3:09 PM CDT 3 mL ipratropium-albuteroL 0.5-2.5 mg/3 mL nebulizer solution 3 mL (DuoNeb) 3 mL, nebulization, Every 6 hours scheduled, First dose on 11/10/24 at 0000 Given 11/12/2024 11:51 AM CDT 3 mL Given 11/12/2024 8:10 AM CDT 3 mL Given 11/11/2024 10:47 PM CDT 3 mL montelukast tablet 10 mg (Singulair) 10 mg, oral, Daily at bedtime, First dose on 11/10/24 at 2100 Given 11/11/2024 8:30 PM CDT 10 mg Given 11/10/2024 8:14 PM CDT 10 mg rivaroxaban tablet 20 mg (Xarelto) 20 mg, oral, Daily, First dose on 11/10/24 at 0900 Given 11/12/2024 8:10 AM CDT 20 mg Given 11/11/2024 10:53 AM CDT 20 mg Given 11/10/2024 8:00 AM CDT 20 mg sertraline tablet 50 mg (Zoloft) 50 mg, oral, Daily, First dose on 11/10/24 at 0900 Given 11/12/2024 8:09 AM CDT 50 mg Given 11/11/2024 10:53 AM CDT 50 mg Given 11/10/2024 8:00 AM CDT 50 mg sodium chloride 0.9 % injection 3 mL 3 mL, intravenous, Every 12 hours scheduled, First dose on 11/10/24 at 0900, Peripheral Intravenous Catheter and Rapid Infusion Catheter, when no infusion to maintain patency Given 11/12/2024 8: 10 AM CDT 3 mL Given 11/11/2024 8:30 PM CDT 3 mL Given 11/11/2024 10:56 AM CDT 3 mL torsemide tablet 40 mg (Demadex) 40 mg, oral, Daily, First dose on 11/10/24 at 0900 Given 11/12/2024 8:10 AM CDT 40 mg Given 11/11/2024 10:53 AM CDT 40 mg Given 11/10/2024 8:00 AM CDT 40 mg documented in this encounter Active and Recently Administered Medications Times are shown in CDT. Scheduled Medication Order 11/10/2024 11/11/2024 11/12/2024 budesonide 0.25 mg/2 mL nebulizer solution 0.25 mg (Pulmicort) 0.25 mg, nebulization, 2 times daily (RT), First dose on Tue11/09/24 at 2200, Rinse mouth with water after use to reduce aftertaste and incidence of candidiasis. Do not swallow. 0618 (Given - Provider: Ovidio Gallegos, R.N.)1817 (Given - Provider: Messi Ghosh.NAna) 0642 (Given - Provider: Pilar GaytanNAna)1816 (Given - Provider: Pilar ValdiviaNAna) 1050 (Given - Provider: Theresa Freitas R.N.) cefTRIAXone in dextrose (iso osm) IVPB 2 g (Rocephin) 2 g, intravenous, at 200 mL/hr, Administer over 15 Minutes, Every 24 hours, First dose (after last reorder) on 11/10/24 at 1900, For 4 days, Drug Monitoring Program: Pharmacist to adjust medication dosing based on indication and drug clearance factors., Indications: Respiratory tract infection, community acquired 1816 (New Bag - Provider: Nydia Grove R.N.) 191 (New Bag - Provider: Christian Monge) doxycycline monohydrate tablet 100 mg (Avidoxy) 100 mg, oral, 2 times daily before morning and evening meals, First dose on 11/10/24 at 0700, For 9 doses, Administer 2 hours before or 6 hours after taking magnesium, aluminum (antacids, laxatives) or calcium and iron supplements (multivitamins). Ensure patient remains upright for 30 minutes post-dose., Drug Monitoring Program: Pharmacist to adjust medication dosing based on indication and drug clearance factors., Indications: Respiratory tract infection, community acquired 0616 (Given - Provider: Elizabeth Poole M.S.NAna, R.N.)1547 (Given - Provider: Nydia Grove R.N.) 0640 (Given - Provider: Antwan Sharp RAnaNAna)1610 (Given - Provider: Christian Monge) 0810 (Given - Provider: Pilar LucasNAna) finasteride tablet 5 mg (Proscar) 5 mg, oral, Daily, First dose on 11/10/24 at 0900, See tube feeding guidelines for tube feeding administration instructions. 0800 (Given - Provider: Fatmata Batista D.N.P., M.A.N., R.N.) 1053 (Given - Provider: Christian Monge) 0810 (Given - Provider: Theresa Freitas R.N.) fluticasone furoate-vilanteroL 100-25 mcg/actuation inhaler 1 puff (Breo Ellipta) 1 puff, inhalation, Daily (RT), First dose on 11/10/24 at 0800, Rinse mouth with water after use to reduce aftertaste and incidence of candidiasis. Do not swallow. 1. Hold device upright in right hand with rough edge. 2. Using left hand open lid (toward left) until click is heard. 3. Tilt inhaler flat so air entrainment vents & counter face up. 4. Inhale to full breath somewhat fast. 5. Hold breath up to 10 seconds. 6. Remove inhaler from mouth. 7. Close lid. 0758 (Given - Provider: Fatmata Batista D.N.P., M.A.N., R.N.) 1055 (Given - Provider: Christian Monge) 0811 (Given - Provider: Theresa Freitas R.N.) ipratropium-albuteroL 0.5-2.5 mg/3 mL nebulizer solution 3 mL (DuoNeb) 3 mL, nebulization, Every 6 hours scheduled, First dose on 11/10/24 at 0000 0142 (Given - Provider: Julee Gallegos.S.N., R.N.)0618 (Given - Provider: Kera GallegosS.N., R.N.)1145 (Given - Provider: Nydia Grove R.N.)1803 (Given - Provider: Zee Chase R.N.) 0017 (Not Given - Provider: Antwan Sharp R.N. - Reason: Other - Comment: asleep)0640 (Given - Provider: Antwan Sharp R.N.)1159 (Given - Provider: Christian Monge)1810 (Given - Provider: Yahaira Belle R.N.)2247 (Given - Provider: Elizabeth Duarte R.N. - Comment: Pt preferred to have this neb before being hooked up to his cpap for the night) 0810 (Given - Provider: Theresa Freitas R.N.)1151 (Given - Provider: Theresa Freitas R.N.) montelukast tablet 10 mg (Singulair) 10 mg, oral, Daily at bedtime, First dose on 11/10/24 at 2100 2013 (Given - Provider: Nydia Grove R.N.) 2029 (Given - Provider: Antwan Sharp R.N.) rivaroxaban tablet 20 mg (Xarelto) 20 mg, oral, Daily, First dose on 11/10/24 at 0900 0800 (Given - Provider: Taylor AnPAna, M.A.N., R.N.) 1053 (Given - Provider: Christian Monge) 0810 (Given - Provider: Theresa Freitas R.N.) sertraline tablet 50 mg (Zoloft) 50 mg, oral, Daily, First dose on 11/10/24 at 0900 0800 (Given - Provider: Fatmata Batista D.N.P., M.A.N., R.N.) 1053 (Given - Provider: Christian Monge) 0809 (Given - Provider: Theresa Freitas R.N.) sodium chloride 0.9 % injection 3 mL 3 mL, intravenous, Every 12 hours scheduled, First dose on 11/10/24 at 0900, Peripheral Intravenous Catheter and Rapid Infusion Catheter, when no infusion to maintain patency 0800 (Given - Provider: Taylor AnPAna, M.A.N., R.N.)2013 (Given - Provider: Nydia Grove R.N.) 1056 (Given - Provider: Christian Monge)2029 (Given - Provider: Antwan Sharp R.N.) 0810 (Given - Provider: Theresa Freitas R.N.) torsemide tablet 40 mg (Demadex) 40 mg, oral, Daily, First dose on 11/10/24 at 0900 0800 (Given - Provider: Fatmata Batista D.N.P., MBharathi, R.N.) 1053 (Given - Provider: Christian Monge) 0810 (Given - Provider: Theresa Freitas R.N.) PRN Medication Order 11/10/2024 11/11/2024 11/12/2024 acetaminophen tablet 650 mg (TylenoL) 650 mg, oral, Every 6 hours PRN, mild pain or score 1-3 of 10, headaches, fever, moderate pain or score 4-6 of 10, severe pain or score 7-10 of 10, Starting on Tue11/09/24 at 2143 albuterol nebulizer solution 2.5 mg 2.5 mg, nebulization, Every 4 hours PRN, wheezing, shortness of breath, Starting on Tue11/09/24 at 2143 2038 (Given - Provider: Madison Sharp RAnaNAna) polyethylene glycol powder packet 1 packet (Miralax) 1 packet, oral, Daily PRN, constipation, Starting on Tue11/09/24 at 2143, Ordered sequence of administration: polyethylene glycol, then bisacodyl until BM achieved. Avoid mixing with starch-based thickened liquids. sennosides-docusate sodium 8.6-50 mg per tablet 1 tablet (Senokot-S) 1 tablet, oral, 2 times daily PRN, constipation, Starting on Tue11/09/24 at 2143, Do not give if patient has diarrhea. sodium chloride 0.9 % injection 10 mL 10 mL, intravenous, As needed, line care, Starting on Tue11/09/24 at 2143, Peripheral Intravenous Catheter and Rapid Infusion Catheter, prior to blood sampling, post blood transfusion or post blood sampling sodium chloride 0.9 % injection 3 mL 3 mL, intravenous, As needed, line care, Starting on Tue11/09/24 at 2143, Prior to and following infusion and between multiple consecutive infusions: sodium chloride 0.9 % injection documented in this encounter Care Teams Sap Treasury Consultant Relationship Specialty Start Date End Date Elsewhere, Pcp PCP - General Family Medicine 01/16/18 documented as of this encounter
--- OUTSIDE RECORDS SUMMARY | 2024-11-16 08:11 | XMS_ITS | Encounter Summary ---
Author Organization [facility] Address [address] [place] [id number] Care Team Providers Care Beef Selector Name Role Phone Elsewhere, Pcp Primary Care Provider Unavailabl e Encounter Details Date Type Department Care Team (Latest Contact Info) Description 11/16/2024 9:11 AM CDT - 11/16/2024 8:51 PM CDT Hospital Encounter Department of Cardiovascular Diseases in [place], [place] [address] [place] [address] Robert Cisneros M.D., Ph.D. [address] [place] [address] Discharge Disposition: Home or Self Care Social [...] been afraid of your partner or ex-partner? Patient declined 11/17/2024 Within the last year, have y ou been humiliated or emotionally abused in other ways by your partner or ex-partner? Patient declined 11/17/2024 Within the last year, have y ou been kicked, hit, slapped, or otherwise physically hurt by your partner or ex-partner? Patient declined 11/17/2024 Within the last year, have y ou been raped or forced to have any kind of sexual activity by your partner or ex-partner? Patient declined 11/17/2024 Hunger Vital Sign Answer Date Recorded Within the past 12 months, y ou worried that your food would run out before you got the money to buy more. Patient declined Within the past 12 months, t he food you bought just didn't last and you didn't have money to get more. Patient declined 05/2024 PRAPARE - Transportation Answer Date Re corded In the past 12 months, has l ack of transportation kept you from medical appointments or from getting medications? Patient declined 11/17/2024 In the past 12 months, has l ack of transportation kept you from meetings, work, or from getting things needed for daily living? Patient declined 11/17/2024 [facility] Utilities Answer Date Recorded In the past 12 months has e electric, gas, oil, or water company threatened to shut off services in your home? Patient declined 11/17/2024 Housing Stability Answer Date Recorded What is your living situation today? I have a [employer] place to live 11/17/2024 Education Answer Date Recorded What is the highest level of school you have completed or the highest degree you have received? GED or equivalent 06/2019 Sex and Gender Information Value Date Recorded Sex Assigned at Male 07/19/2017 9:08 AM CDT Legal Sex Male 7:31 AM CNA CAREGIVER Gender Identity Male 07/19/2017 9:08 AM CDT Sexual Orientation Straight 07/19/2017 9: 08 AM CDT Occupation Industry Job Start Date Job End Date Retired Not on file Not on file Not on file documented as of this encounter Medications at Time of Discharge acetaminophen (TylenoL) 500 mg tablet Take 1,000 mg by mouth 2 (two) times a day as needed for pain. 05/17/2024 bisacodyL (Dulcolax) 5 mg EC tablet Take 2 tablets (10 mg total) by mouth daily. 30 tablet 11/21/2024 2:59 PM CDT 11/22/2024 budesonide (PULMICORT) 0.25 mg/2 mL nebulizer solution Inhale 0.25 mg 2 (two) times a day. 02/15/2023 cholecalciferol, vitamin D3, 25 mcg (1,000 Unit) tablet Take 1 tablet (25 mcg total) by mouth daily. 11/22/2024 DME OxygenIndications :Dyspnea,Shortnes s Of Breath,Pneumoconi osis [...] puff once daily. 60 each 3 10/12/2023 ipratropium-albut Noé (DuoNeb) 0.5-2.5 mg/3 mL nebulizer solution Inhale 3 mL by nebulization 4 (four) times a day. 180 mL 11 11/21/2024 montelukast (SINGULAIR) 10 mg tablet Take 10 mg by mouth at bedtime. 11/16/2019 multivitamin-iron -JT-Xf-pgxcdmxl 400 mcg (folic acid) tablet Take 1 tablet by mouth daily. 11/22/2024 omeprazole (PriLOSEC) [address] capsule Take 20 mg by mouth every morning before breakfast. 12/04/2021 potassium chloride (KLOR-CON M) 10 mEq ER tablet Take 20 mEq by mouth 2 (two) times a day with meals. 08/30/2022 sennosides (senna) 8.6 mg tablet Take 8.6 mg by mouth at bedtime as needed for constipation. sertraline (ZOLOFT) 50 mg tablet Take 50 mg by mouth daily. 12/04/2021 torsemide 60 mg tablet Take 60 mg by mouth daily for 30 days. 60 tablet 11/21/2024 5 predniSONE (Deltasone) 20 mg tablet Take 2 tablets (40 mg total) by mouth daily for 2 doses. 4 tablet 11/21/2024 2:58 PM CDT 11/22/2024 5 predniSONE (Deltasone) 20 mg tablet Take 2 tablets (40 mg total) by mouth daily as needed (continued shortness of breath) for up to 3 days. 3 tablet 11/21/2024 5 albuterol (PROVENTIL HFA,VENTOLIN HFA) 90 mcg/actuation inhaler [...] a day as needed for cough. 5 benzonatate (Tessalon) 200 mg capsule Take 1 capsule (200 mg total) by mouth 3 (three) times a day as needed for cough. 20 capsule 11/21/2024 5 benzonatate (Tessalon) 200 mg capsule Take 1 capsule (200 mg total) by mouth 3 (three) times a day as needed for cough. 20 capsule 11/21/2024 2:58 PM CDT 11/21/2024 5 bisacodyL (Dulcolax) 10 mg suppository Insert 10 mg into the rectum daily as needed for constipation. 5 bisacodyL (Dulcolax) 5 mg EC tablet Take 2 tablets (10 mg total) by mouth daily. Please take 2-tablets two days before and another 2-tablets the night before the colonoscopy. 4 tablet 10/11/2023 5 bisacodyL (Dulcolax) 5 mg EC tablet Take 2 tablets (10 mg total) by mouth daily. 30 tablet 11/22/2024 5 cefpodoxime (Vantin) 200 mg tabletIndications :Pneumonia [...] acquired. . 5 tablet 11/12/2024 5 ipratropium-albut Noé (DuoNeb) 0.5-2.5 mg/3 mL nebulizer solution Inhale 3 mL by nebulization 3 (three) times a day. 180 mL 11 11/19/2024 5 ipratropium-albut Noé (DuoNeb) 0.5-2.5 mg/3 mL nebulizer solution Inhale 3 mL by nebulization 4 (four) times a day. 180 mL 11 11/21/2024 5 loperamide (Imodium A-D) 2 mg tablet [...] mLs (8 ounces) of beverage. 11/12/2024 5 predniSONE (Deltasone) 20 mg tablet Take 2 tablets (40 mg total) by mouth daily for 2 doses. 4 tablet 11/22/2024 5 predniSONE (Deltasone) 20 mg tablet Take 2 tablets (40 mg total) by mouth daily as needed (continued shortness of breath) for up to 3 days. 3 tablet 11/21/2024 5 sennosides-docusa te sodium (Senokot-S) 8.6-50 mg per tablet Take 1 tablet by mouth daily. 03/01/2024 5 torsemide (DEMADEX) 20 mg tablet take 2 tablets by mouth daily. 60 tablet 06/27/2023 5 torsemide 60 mg tablet Take 60 mg by mouth daily for 30 days. 60 tablet 11/21/2024 5 Xarelto 20 mg tablet Take 20 mg by mouth daily with evening meal. 07/17/2021 5 documented as of this encounter Plan of Treatment Upcoming Encounters Date Type Department Care Team (Latest Contact Info) Description 01/04/2025 7:45 AM CNA CAREGIVER Appointment Department of Radiology, [facility], in [place], [place] [address] [place] [address] Blanco Spivey M.D. [address] [place] [phone] Discharge Disposition: Home or Self Care 01/04/2025 8:30 AM CNA CAREGIVER Diagnostic Division of Pulmonary Medicine in [place], [place] [address] [place] [phone] Blanco Spivey M.D. [address] [place] [phone] 01/04/2025 12:30 PM CNA CAREGIVER Office Visit Division of Pulmonary Medicine in [place], [place] [address] [place] [address] Blanco Spivey M.D. [address] [place] [address] 02/11/2025 10:15 AM CNA CAREGIVER Clinical Communication Virtual Review in [place], [place] [address] [place] [address] 02/12/2025 11:15 AM CNA CAREGIVER Appointment Department of Radiology, [facility], in [place], [place] [address] [place] [phone] Lilli Moore M.D. [address] [place] [phone] 02/12/2025 11:50 AM CNA CAREGIVER Appointment Department of Laboratory Medicine and Pathology, [facility] in [place], [place] [address] [place] [phone] Lilli Moore M.D. [address] [place] [phone] 02/12/2025 1:30 PM CNA CAREGIVER Office Visit Division of Pulmonary Medicine in [address] [phone] Lilli Moore M.D. [address] [place] [phone] documented as of this encounter Procedures Procedure Name Priority Date/Time Associated Diagnosis Comments INTERFACED REMOTE DEVICE CHECK Routine 11/16/2024 9:11 AM CDT documented in this encounter Results * CAR CARDIAC DEVICE INTERROGATION (11/16/2024 9:11 AM CDT) Date Time Interrogation Session [id number] [facility] Type Interrogation Session Remote [facility] Implantable Pulse Generator Vice President Of Brand Management [employer] [facility] Implantable Pulse Generator Type Pacemaker [facility] Implantable Pulse Generator Model Carly XT DR ESCOBAR [id number] [facility] Implantable Pulse Generator Serial Number [id number] [facility] Implantable Pulse Generator Implant Date 20230530 [facility] Battery Remaining Longevity 104.0 mo [facility] Battery Voltage 3.010 [facility] Battery STUDENT LIAISON OFFICER Trigger 2.625 [facility] Battery Status OK [facility] Shahid Statistic RA Percent Paced 37.20 [facility] Shahid Statistic RV Percent Paced 99.94 [facility] Atrial Tachy Statistic AT/AF [place] Percent 0.00 [facility] Lead Channel Sensing Intrinsic Amplitude 2.250 [facility] Lead Channel Setting Sensing Sensitivity 0.30 [facility] Lead Channel Impedance Value 380 [facility] Lead Channel Pacing Threshold Amplitude 1.125 [facility] Lead Channel Pacing Threshold Pulse Width 0.4 [facility] Lead Channel Measurements Date and Time [id number] [facility] Lead Channel Setting Pacing Amplitude 2.250 [facility] Lead Channel Setting Pacing Pulse Width 0.4 [facility] Lead Channel Sensing Intrinsic Amplitude 11.000 [facility] Lead Channel Setting Sensing Sensitivity 2.80 [facility] Lead Channel Impedance Value 399 [facility] Lead Channel Pacing Threshold Amplitude 1.000 [facility] Lead Channel Pacing Threshold Pulse Width 0.4 [facility] Lead Channel Measurements Date and Time 20241115 [facility] Lead Channel Setting Pacing Amplitude 2.250 [facility] Lead Channel Setting Pacing Pulse Width 0.4 [facility] Shahid Setting Mode (NBG Code) DDDR [facility] Shahid Setting Lower Rate Limit 70 [facility] Shahid Setting AT Mode Switch Rate 150 [facility] Shahid Setting Maximum Tracking Rate 120 [facility] Shahid Setting Maximum Sensor Rate 120 [facility] Shahid Setting PAV Delay 150 [facility] Shahid Setting MEGHAN Delay 120 [facility] Lead Channel Setting Sensing Polarity Bipolar [facility] Lead Channel Setting Sensing Polarity Bipolar [facility] Lead Channel Setting Pacing Polarity Bipolar [facility] Lead Channel Setting Pacing Polarity Bipolar [facility] Lead Channel Pacing Threshold Polarity Bipolar [facility] Lead Channel Pacing Threshold Polarity Bipolar [facility] Zone Setting Type Category AT/AF [facility] Murj Rate 1 150 [facility] Murj Therapies Some Rx Off [facility] Zone Setting Status Monitor [facility] Murj Zone ID 2 [facility] Zone Setting Type Category VT F[facility] Murj Rate 1 167 [facility] Zone Setting Status ENABLED [facility] Murj Zone ID 6 [facility] Implantable Lead Vice President Of Brand Management [employer] [facility] Implantable Lead Model 5024M CapSure SP [facility] Implantable Lead Location Right Ventricle [facility] Implantable Lead Connection Status Connected [facility] Implantable Lead Serial Number [id number] [facility] Implantable Lead Implant Date 19980502 [facility] Implantable Lead Special Function Lead length: 52.00 cm [facility] Implantable Lead Vice President Of Brand Management [employer] [facility] Implantable Lead Model 5524M CapSure SP [facility] Implantable Lead Location Right Atrium [facility] Implantable Lead Connection Status Connected [facility] Implantable Lead Serial Number [id number] [facility] Implantable Lead Implant Date 19980502 [facility] Implantable Lead Special Function Lead length: 45.00 cm [facility] Anatomical Region Laterality Modality Other 11/20/2024 9:52 AM CDT Impressions 11/20/2024 9:52 AM CDT Encounter Impression: Title: Normal Remote: No Events * Normal Device Function * Alerts or events: None * Battery: OK, 8.67 yrs * Sensing, impedance and thresholds reviewed * Programmed parameters reviewed * Presenting rhythm: ASVP at 88 bpm with a PAC. * Heart Rate Histograms reviewed * No significant changes noted Plan: Routine remote follow up and as needed. This patient underwent device interrogation. I agree that the device interrogation was medically indicated to provide appropriate care and continue routine device interrogations as indicated. Encounter Summary: This report includes 1 transmission that was received on 2024-11-16. Battery, lead impedance, sensing amplitude and pacing threshold data was reviewed. Narrative Procedure Note Robert Cisneros M.D., Ph.D. - 11/20/2024 IMPRESSION: Encounter Impression: Title: Normal Remote: No Events * Normal Device Function * Alerts or events: None * Battery: OK, 8.67 yrs * Sensing, impedance and thresholds reviewed * Programmed parameters reviewed * Presenting rhythm: ASVP at 88 bpm with a PAC. * Heart Rate Histograms reviewed * No significant changes noted Plan: Routine remote follow up and as needed. This patient underwent device interrogation. I agree that the deviceinterrogation was medically indicated to provide appropriate care andcontinue routine device interrogations as indicated. Encounter Summary: This report includes 1 transmission that was receivedon 2024-11-16. Battery, lead impedance, sensing amplitude and pacingthreshold data was reviewed. Robert Cisneros M.D., Ph.D. CV IMPLANTABLE CARDI AC DEVICE Final Result documented in this encounter Visit Diagnoses Not on filedocumented in this encounter Care Teams Beef Selector Relationship Specialty Start Date End Date Elsewhere, Pcp PCP - General Family Medicine 01/16/18 documented as of this encounter
--- OUTSIDE RECORDS SUMMARY | 2024-11-16 19:52 | XMS_ITS | Encounter Summary ---
Author Organization [facility] Address [address] [place] [id number] Care Team Providers Care Flexographic Press Set Up Operator Name Role Phone Elsewhere, Pcp Primary Care Provider Unavailabl e Reason for Referral * Outpatient (Routine) - Authorized Specialty Diagnoses / Procedures Referred By Contac t Referred To Contact Diagnoses Decline Functional Status Lenny Brown APRN, C.N.P., D.N.P. [address] [place] [phone] Phone: tel: fax: Referral ID Status Reason Start Date Expiration Date Visits Requested Visits Authorized [id number] Authorized Continuity of Care 11/21/2024 05/23/2026 1 1 * Physical Therapy (Routine) - Authorized Specialty Diagnoses / Procedures Referred By Contac t Referred To Contact Diagnoses Decline Functional Status Lenny Brown APRN, C.N.P., D.N.P. [address] [place] [phone] Phone: tel: fax: Referral ID Status Reason Start Date Expiration Date V isits Requested Visits Authorized [id number] Authorized Other 11/21/2024 05/23/2026 99 99 Reason for Visit * Reason Comments Shortness of Breath Encounter Details Date Type Department Care Team (Latest Contact Info) Description 11/16/2024 8:52 PM CDT - 11/21/2024 2:52 PM CDT Hospital Encounter [facility], [facility], Fourth Floor [address] [place] [phone] Germán Gaspar M.D. [address] [place] [phone] Alexander Garcia M.B., B.Ch., B.A.O. [address] [place] [phone] Fred Leon M.D. [address] [place] [phone] Gerard Cook M.D. [address] [place] [phone] Shortness Of Breath (Primary Dx); Pneumonia Community Acquired; Decline Functional Status [R53.81]; Failure Renal Acute (Acute Kidney Injury) Discharge Disposition: [facility] Social History [...] needed for daily living? Patient declined 11/17/[address] [facility] Utilities Answer Date Recorded In the past 12 months has [facility] electric, gas, oil, or water company threatened to shut off services in your home? Patient declined 11/17/2024 Housing Stability Answer Date Recorded What is your living situation today? I have a [facility] place to live 11/17/2024 Education Answer Date Recorded What is the highest level of school you have completed or the highest degree you have received? GED or equivalent 06/2019 Sex and Gender Information Value Date Recorded Sex Assigned at Male 07/19/2017 9:08 AM CDT Legal Sex Male 7:31 AM [employer] Gender Identity Male 07/19/2017 9:08 AM CDT Sexual Orientation Straight 07/19/2017 9: 08 AM CDT Occupation Industry Job Start Date Job End Date Retired Not on file Not on file Not on file documented as of this encounter Last Filed Vital Signs Vital Sign Reading Time Taken Comments Blood Pressure 125/68 11/21/2024 1:15 PM CDT Pulse 87 11/21/2024 1:15 PM CDT Temperature 36.4 C (97.5 F) 11/21/2024 1:15 PM CDT Respiratory Rate 18 11/21/2024 1:15 PM CDT Oxygen Saturation 92% 11/21/2024 1:15 PM CDT Inhaled Oxygen Concentration - - Weight 87.3 kg (192 lb 7.4 oz) 11/20/2024 8:01 A M CDT Height 167.6 cm (5' 6) 11/17/2024 2:29 PM CDT Body Mass Index 31.06 11/17/2024 2:29 PM CDT documented in this encounter Discharge Summaries * Lenny Brown APRN, C.N.P., D.N.P. - 11/21/2024 11:57 AM CDT DISCHARGE SUMMARY Discharge Provider: Gerard Cook M.D. 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 * DISCHARGE DISPOSITION [facility] [4] ACTIVE ISSUES REQUIRING FOLLOW UP RECOMMENDATIONS FOR PCP: - Please recheck creatinine and titrate Xarelto as needed based on kidney function. - Plan for follow up outpatient with Dr. Talha [facility] ([facility]) for reassessment after discharge. OUTPATIENT FOLLOW UP Scheduled Appointments 02/11/2025 10:15 AM RST PUL SLM INTAKE VISIT Admitting/Central Scheduling 02/12/2025 11:15 AM DX ROCH 02 RM 208 CHEST Radiology 02/12/2025 11:50 AM LAB BLOOD [facility] Laboratory Medicine 02/12/2025 1:30 PM Lilli Moore M.D. Pulmonary Medicine For appointment details refer to your Patient Appointment Guide. TEST RESULTS PENDING AT DISCHARGE Pending Labs Order Current Status Bacteria / Theresa Culture, Blood # 2 Preliminary result Bacteria / Theresa Culture, Blood #1 Preliminary result DETAILS OF HOSPITAL STAY REASON FOR ADMISSION Shortness Of Breath HOSPITAL COURSE Mr. Marcos Perez is a 89 y.o. male who presented to the [facility] ED on 11/16 with worsening dyspnea, subjective fever, night sweats, and hypoxia despite oral antibiotics. He was recently discharged on 11/12/2024 from [facility] Medicine 8 for community-acquired pneumonia. He was treated with IV ceftriaxone and doxycycline while in the hospital and completed oral course of cefpodoxime and doxycycline on 11/17. Background includes atrial fibrillation on anticoagulation, obstructive [...] rest prior to this illness. He resides ata assisted living facility in [place] but receives specialty care here at [facility]. ED Course In the ED, he was vitally stable, afebrile, with oxygen saturation of 94% on 2L via NC. Lab workup demonstrated mild leukocytosis (13.6) with neutrophilic predominance, stable chronic normocytic anemia (Hgb 11.2), mild hyponatremia (133), baseline renal function, and normal lactate. CXR revealed bilateral interstitial and alveolar opacities and bibasilar region and increasing hazy opacities in right mid lung, with trace bilateral pleural effusions and enlarged cardiac silhouette. Blood culturesx2 were collected, 500 mL bolus was provided, and empirical antibiotics (vancomycin and cefepime were ordered, in light of possible healthcare associated pneumonia, and failure of outpatient antibiotics, and DuoNebs and steroids were also provided). He was admitted to Medicine 5 for further management. Medicine 5 Service Mr. Perez was continued on broad spectrum antibiotics. Infectious Disease and Pulmonary Medicine were consulted and ultimately recommended 5 days of IV cefepime for treatment of suspected HAP (respiratory pathogen panel negative and induced-sputum unsuccessful). He completed IV antibiotics on 11/21/2024. Additionally, they recommended initiation of oral steroids. His respiratory status improved after initiation of steroids. Clinical exam and increased weight from previously noted dry weight raised concern for element of CHF exacerbation. He was diuresed with IV Lasix on 11/18 with improvement in clinical exam as well as his weight. He was restarted on his home torsemide dose on 11/19. His cr. Bumped to 1.39 after receiving aggressive diuresis on 11/20. In the morning of 11/21 his cr. Started to improve and down to 1.24. On the morning of 11/21/2024, the patient was back to his baseline oxygen needs, able to mobilize, voiding and having bowel movements without difficulty. He was discharged back to his assisted living.He has a scheduled PCP appointment on Nov 27 at 11 am. Recommend PCP to obtain BMP, monitor creatinine and titrate Xarelto as needed based on renal function. He will plan to follow up outpatient with Dr. Talha Garcia ([facility]) for reassessment after discharge. CONSULTS ORDERED DURING THIS ADMISSION IP CONSULT TO CARE MANAGEMENT IP CONSULT TO CARE MANAGEMENT IP CONSULT TO CARE MANAGEMENT IP CONSULT TO INFECTIOUS DISEASES IP CONSULT TO PULMONARY MEDICINE CONDITION AT DISCHARGE Improved. I saw and evaluated Marcos Perez today and provided counseling [id number] at bedside. I personally spent a total 35 minutes in counseling and discussion with the patient and in coordination of care as described above to facilitate the hospital discharge. Discharge instructions were provided to the patient and caregiver(s). MEDICATIONS CHANGED DURING THIS HOSPITAL STAY Current Discharge Medication List START taking these medications Details cholecalciferol, vitamin D3, 25 mcg (1,000 Unit) tablet Take 1 tablet (25 mcg total) by mouth daily. ipratropium-albuteroL (DuoNeb) 0.5-2.5 mg/3 mL nebulizer solution Inhale 3 mL by nebulization 4 (four) times a day. Qty: 180 mL, Refills: 11 rocwyhftykmd-schs-FI-Ca-minerals 400 mcg (folic acid) tablet Take 1 tablet by mouth daily. !! predniSONE (Deltasone) 20 mg tablet Take 2 tablets (40 mg total) by mouth daily for 2 doses. Qty: 4 tablet, Refills: 0 !! predniSONE (Deltasone) 20 mg tablet Take 2 tablets (40 mg total) by mouth daily as needed (continued shortness of breath) for up to 3 days. Qty: 3 tablet, Refills: 0 !! - Potential duplicate medications found. Please discuss with provider. Current Discharge Medication List STOP taking these medications cefpodoxime (Vantin) 200 mg tablet Comments: Reason for Stopping: cholecalciferol (VITAMIN D3) 25 mcg (1,000 Unit) capsule Comments: Reason for Stopping: multivitamin tablet Comments: Reason for Stopping: sennosides-docusate sodium (Senokot-S) 8.6-50 mg per tablet Comments: Reason for Stopping: Current Discharge Medication List CONTINUE these medications which have CHANGED Details benzonatate (Tessalon) 200 mg capsule Take 1 capsule (200 mg total) by mouth 3 (three) times a day as needed for cough. Qty: 20 capsule, Refills: 0 bisacodyL (Dulcolax) 5 mg EC tablet Take 2 tablets (10 mg total) by mouth daily. Qty: 30 tablet, Refills: 0 torsemide 60 mg tablet Take 60 mg by mouth daily for 30 days. Qty: 60 tablet, Refills: 0 Current Discharge Medication List CONTINUE these medications which have NOT CHANGED Details budesonide (PULMICORT) 0.25 mg/2 mL nebulizer solution Inhale 0.25 mg 2 (two) times a day. dupilumab (Dupixent Pen) 300 mg/2 mL injection Inject 2 mL (300 mg total) under the skin as directed. Inject 600 mg under the skin once. Start 300 mg under the skin every 2 weeks 14 days after the 600 mg injection. Qty: 6 mL, Refills: 11 Associated Diagnoses: Asthma Severe (HCC); Eosinophilic Asthma (HCC) ferrous sulfate 325 mg (65 mg iron) tablet Take 1 tablet (65 mg of iron total) by mouth every otherday. Qty: 15 tablet, Refills: 0 finasteride (PROSCAR) 5 mg tablet Take 5 mg by mouth daily. fluticasone furoate-vilanteroL (Breo Ellipta) 100-25 mcg/actuation inhaler Inhale 1 puff once daily. Qty: 60 each, Refills: 3 montelukast (SINGULAIR) 10 mg tablet Take 1 tablet by mouth at bedtime. omeprazole (PriLOSEC) [address] capsule Take 20 mg by mouth every morning before breakfast. potassium chloride (KLOR-CON M) 10 mEq ER tablet Take 20 mEq by mouth 2 (two) times a day with meals. sertraline (ZOLOFT) 50 mg tablet Take 50 mg by mouth daily. Xarelto 20 mg tablet Take 20 mg by mouth daily. acetaminophen (TylenoL) 500 mg tablet Take 500 mg by mouth every 6 (six) hours as needed for pain or fever. alum-mag hydroxide-simeth (Cyndy-Lanta) 200-200-20 mg/5 mL suspension Take 30 mL by mouth as needed for indigestion. bisacodyL (Dulcolax) 10 mg suppository Insert 10 mg into the rectum daily as needed for constipation. 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 magnesium hydroxide 400 mg/5 mL suspension Take 30 mL by mouth as needed. nitroglycerin (NITROSTAT) 0.[address] under the tongue every 5 (five) minutes as needed for chest pain. polyethylene glycol (Miralax) 17 gram powder packet Take 1 packet by mouth daily as needed for constipation. Dissolve each 17 g dose in 240 mLs (8 ounces) of beverage. sennosides (senna) 8.6 mg tablet Take 8.6 mg by mouth at bedtime as needed for constipation. documented in this encounter Discharge Instructions * Discharge Instructions* Dave Lundberg - 11/19/2024 7:20 AM CDT You were discharged from the [facility] Medicine 5 ([facility]) Service. Please identify this service name if youcall with questions after hospitalization. * Attachments The following attachments cannot be sent through Care Everywhere. * Prednisone (By mouth) (Egyptian) documented in this encounter Medications at Time of Discharge bisacodyL (Dulcolax) 5 mg EC tablet Take 2 tablets (10 mg total) by mouth daily. 30 tablet 11/21/2024 2:59 PM CDT 11/22/2024 budesonide (PULMICORT) 0.25 mg/2 mL nebulizer solution Inhale 0.25 mg 2 (two) times a day. 02/15/2023 cholecalciferol, vitamin D3, 25 mcg (1,000 Unit) tablet Take 1 tablet (25 mcg total) by mouth daily. 11/22/2024 dupilumab (Dupixent Pen) 300 mg/2 mL injectionIndicati [...] mg by mouth at bedtime. 11/16/2019 multivitamin-iron -NQ-Xr-zluogwry 400 mcg (folic acid) tablet Take 1 [...] daily for 30 days. 60 tablet 11/21/2024 acetaminophen (TylenoL) 500 mg tablet Take 1,000 mg by mouth 2 (two) times a day as needed for pain. 05/17/2024 DME OxygenIndications :Dyspnea,Shortnes s Of Breath,Pneumoconi osis Due To Asbestos And Other Mineral Fibers (HCC) DME Order - for details see Order Report 1 each 08/20/2023 sennosides (senna) 8.6 mg tablet Take 8.6 mg by mouth at bedtime as needed for constipation. predniSONE (Deltasone) 20 mg tablet Take 2 tablets (40 mg total) by mouth daily for 2 doses. 4 tablet 11/21/2024 2:58 PM CDT 11/22/2024 5 predniSONE (Deltasone) 20 mg tablet Take 2 tablets (40 mg total) by mouth daily as needed (continued shortness of breath) for up to 3 days. 3 tablet 11/21/2024 5 benzonatate (Tessalon) 200 mg capsule Take 1 capsule (200 mg total) by mouth 3 (three) times a day as needed for cough. 20 capsule 11/21/2024 2:58 PM CDT 11/21/2024 5 Xarelto 20 mg tablet Take 20 mg by mouth daily with evening meal. 07/17/2021 5 alum-mag hydroxide-simeth (Cyndy-Lanta) 200-200-20 mg/5 mL suspension Take 30 mL by mouth as needed for indigestion. 5 bisacodyL (Dulcolax) 10 mg suppository Insert 10 mg into the rectum daily as needed for constipation. 5 loperamide (Imodium A-D) 2 mg tablet Take 2 mg by mouth as needed for diarrhea. 5 magnesium hydroxide 400 mg/5 mL suspension Take 30 mL by mouth as needed. 5 nitroglycerin (NITROSTAT) 0.[address] under the tongue every 5 (five) minutes as needed for chest pain. 06/22/2016 5 polyethylene glycol (Miralax) 17 gram powder packet Take 1 packet by mouth daily as needed for constipation. Dissolve each 17 g dose in 240 mLs (8 ounces) of beverage. 11/12/2024 5 documented as of this encounter Progress Notes * KrNydia holden R.N. - 11/21/2024 11:07 AM CDT SUBJECTIVE Discharge planning- reconnects to patient's assisted living and home oxygen have been completed. OBJECTIVE Anticipated Needs Anticipated Needs Functional Status: Transportation use (drive car, use taxi/bus), Meal preparation, Medication set-up/administration, Housekeeping Assistive Devices: None Anticipated Modifications to the Patient's Home: None Transportation Needs: Support from family Does the patient need discharge transport arranged?: No Anticipated Discharge Destination: [facility] Facility Patient is understanding and accepting of the discharge plan as described below. ASSESSMENT / PLAN Assessment Those noted above appear to have insight into the patient's needs at this time and are planning appropriately for discharge needs. They report agreement with the below plan with no further questions at this time. No barriers identified at this time. Plan The patient agrees with the following plan. Patient's Anticipated Discharge Destination: [facility] Facility Assisted Living Destination: Facility: [facility] Living Contact: Mady Patient was receiving the following care: Med management, bathing until hospital, no dressing and grooming. Patient cannot return on weekend. Patient needs to be back by 4 pm . Additional equipment needed for return: CPAP Patient cannot return if he is needing more than a minimal am and pm care.. COVID screening needed before patient can return: no Return transportation to be provided by family. NURSING to arrange transportation and transport oxygen if needed. Was patient receiving other services (ie: home health, infusions, oxygen, etc): NURSING: - Call report on morning of dismissal. - Complete documentation in the Discharge Navigator including Nursing Report Info and Facility/NextLevel of Care Info - Send copy of After Visit Summary with patient at discharge. PRIMARY SERVICE: - Provide written prescriptions for all narcotics. Non Profit Job Titles : -Reviewed patient's insurance coverage for the services noted above. The patient appear(s) to have an understanding of this. -Will continue to follow and assist if needs arise. Oxygen Reconnect: Durable Medical Equipment - Admitted Since 11/16/2024 Service Provider Services Address Phone Fax Patient Preferred [facility] Durable Medical Equipment [address], [place] [address] [phone] -- Contact: intake Respiratory Equipment : concentrator with portability Oxygen provider reports patient???s current orders are for 2 liters. NURSING: - Arrange transportation oxygen tank if needed. - If new oxygen requirements are needed, assist primary service with new prescription and fax to provider. PRIMARY SERVICE: - Complete and sign new oxygen prescription if needed. Non Profit Job Titles : -Reviewed patient's insurance coverage for the services noted above. The patient appear(s) to have an understanding of this. -Will continue to follow and assist if needs arise. Transportation upon dismissal will be provided by family--daughter or one of his sons. grab driver encouraged the patient to reach out with any questions/concerns. Care Management will continue to assess for homegoing needs with the interdisciplinary team. Georgie Jasso R.N. 11/21/2024 * Rosemarie Sandoval P.T., D.P.T. - 11/21/2024 9:43 AM CDT Physical Therapy Inpatient Treatment SUBJECTIVE Patient's Name: Marcos Perez Referring/Attending Provider: Gerard Cook M.D. Reason for Referral: Physical Therapy Evaluate and Treat Onset Date: 11/16/2024 History of Present Illness: Marcos Perez is a 89 y.o. male who was admitted to [facility] in [place] on 11/16/2024 for Pneumonia Community Acquired [J18.9] Shortness Of Breath [R06.02] Precautions Other Precautions: SOB during ambulation Pain Assessment: Pain not reported during session. Patient/Caregiver Goals: Return to home and Return to prior level of function Subjective Comments: Agreeable to therapy session. OBJECTIVE Vital Signs Vitals taken during session: O2 saturation: 94% and O2 flow: Room air and 2 L/min nasal cannula, room air during rest, 2 L via NC for ambulation/mobility Outcome Measures: AM-PAC Inpatient Short Form: AM-PAC Basic Mobility (V.2) How much help from another person do you currently need???If the patient hasn't done an activity recently, how much help from another person do you think he/she would needif he/she tried? 1. Turning from your back to your side while in a flat bed without using bedrails?: None 2. Moving from lying on your back to sitting on the side of a flat bed without using bedrails?: None 3. Moving to and from a bed to a chair (including a wheelchair)?: A Little 4. Standing up from a chair using your arms (e.g., wheelchair, or bedside chair)?: None 5. To walk in hospital room?: A Little 6. Climbing 3-5 steps with a railing?: A Lot AM-PAC Basic Mobility (V.2) Raw Score: 20 AM-PAC Basic Mobility (V.2) Standardized Score: 43.99 Interpretation: Based on scoring guidelines using the raw score value: Those going to home had an average score at or above 18 Those going to facility had an average score at or below 17 Clinicians answer the AM-PAC Inpatient Short Form based on observed patient activity and/or clinical judgement (patient can be scored without physically performing each activity). The AM-PAC is one of many factors to consider when discharge planning. Therapeutic Interventions: SUPINE TO SIT: - Assist Level: independent - Device: none - Therapist Delivery: assessed - Assist/Cues Provided: verbal for completion of transfer - Comments: able to perform independently with good strength present without bed features with bed flat SIT <> STAND: - Assist Level: supervision of 1 - Device: gait belt and front wheeled walker - Surface: bed, chair, and toilet - Therapist Delivery: assessed, facilitated, and instructed - Assist/Cues Provided: verbal for safety, sequencing, and technique - Comments: able to perform easily with good strength present GAIT: - Distance: 500 feet - Assist Level:supervision of 1 - Device: gait belt and front wheeled walker - Quality: decreased heel strike, decreased step height, decreased step length, forward flexed posture - Therapist Delivery: assessed and instructed - Assist/Cues Provided:verbal for forward gaze, pacing, and upright posture - Comments: increased activity tolerance with no shortness of breath present THERAPEUTIC ACTIVITY: Discussed mobility status, discharge plans, O2 settings during mobility and standing lower extremity exercises to complete upon discharge THERAPEUTIC EXERCISE: Provided standing exercise handout and discussed dosing EDUCATION: -Role of PT in acute setting and collaborated with patient and/or family on goals and plan of care. -Fall prevention -Home exercise program -Home safety The patient's status was discussed and the following coordination of care occurred with the RN Patient was left in bedside chair with chair alarm on, with nursing staff at end of session with call light in reach, all needs met and questions answered. Assessment Discharge Therapy Needs - PT: No further skilled therapy If skilled therapy is recommended, skilled therapy can include physical therapy provided by home health, outpatient clinic, or a post-acute facility. The location of these services is determined by the patient's care team in partnership with patient/family. Level of Care Needed - PT: Assistance with transfers (Comment), Assistance with walking and moving around the home, Physical assistance needed Barriers to Discharge Home: Current functional status, Fall risk Equipment Recommended - PT: Front-wheeled walker From a physical therapy perspective, the level of care above has been recommended for Mr. Perez after hospital discharge. This level of care is based on his functional abilities during today's session. This may change throughout the hospital course and will be updated as appropriate. Clinical Impression: Patient demonstrate's good tolerance to today's PT session. Patient performed bed mobility independently. Patient performed STS transfer with supervision and FWW, able to perform with good strength and safe hand placement. Patient ambulated 500 ft with supervision and FWW, demonstrates increased activity tolerance and did not experience shortness of breath throughout. O2 SATS stable post ambulation on room air. Patient is appropriate for continued inpatient PT and will be followed through remainder of hospital stay to progress functional mobility for safe discharge home. Rehab potential: Mr. Perez has Good potential to achieve established physical therapy goals within the time frame outlined below. Progress: Progressing toward goals Recommendations for mobility/activity while hospitalized: chair 3x/day with stand by assist (2 hours max in chair at a time) gait 5x/day with stand by assist lower extremity exercises 3x/day Plan PT Plan Comments: progress ambulation tolerance with less SOB, continue to progress HEP Functional Goals: PT Inpatient Goals PT Goal #1: Patient will be able to perform sit to stand transfer with mod I and FWW in order to progress functional mobility to PLOF. PT Goal #1 Status: Achieved PT Goal #2: Patient will be able to perform bed mobility independently in order to progress functional mobility to PLOF. PT Goal #2 Status: Progressing PT Goal #3: Patient will be able to ambulate 100 ft with mod I and FWW in order to progress functional mobility for safety upon discharge. PT Goal #3 Status: Progressing PT Goal #4: Patient will be able to perform HEP independently in order to promote functional strength needed for discharge. PT Goal #4 Status: Progressing Treatment Plan: Plan: Continue with current plan PT Amount: 1 visit per day PT Frequency: 5 times per week PT Inpatient Duration : Until goals are met or hospital discharge Requires Inpatient Follow-Up: Yes PT - Next Inpatient Appointment: 11/22/24 Patient agrees with the plan of care and goals. Treatment interventions may include: Treatment/Interventions: Therapeutic exercise, Therapeutic functional activity, Neuromuscular re-education, Gait training, Self-care/home management Billing: Time Spent with Patient Therapeutic Interventions Gait Training (min): 15 min Therapeutic Activity (min): 8 min Therapeutic Exercise (min): 4 min Time Tracking Total Timed Units (min): 27 min Total Treatment Time (min): 27 min Rosemarie Sandoval P.T., D.P.T. * Matthew Mariano R.R.T., L.R.T. - 11/20/2024 11:54 PM CDT 11/20/240 BPAP/CPAP Therapy BPAP/CPAP Interface Full face mask Patient's Own Equipment Mask;Tubing;CPAP;Patient able to manage equipment on own;Equipment inspected (per site policy) Skin barrier Refused Ventilator Parameters Ventilator Parameters (Select Groups) BPAP/CPAP Rows BPAP/CPAP Mode CPAP;Per Home Settings O2 Flow Rate 2 L/min NPPV EPAP (CPAP) Setting 15 cm H2O Humidification Heated humidifier RT placed patient on CPAP/ BIPAP with the above settings for the night. Settings with 2 L oxygen bleed in. No respiratory concerns at time of placement. Electronically signed by: Bon Mariano R.R.T., L.R.T. 11/20/24 11:54 PM CDT * Jacky Javed M.D. - 11/20/2024 2:57 PM CDT I have interviewed and examined Mr. Perez and agree with Dr. Busby. The patient reports feelingsignificantly improved after starting prednisone and believes he is back to baseline. I think it isreasonable to proceed with the previous plan and he can be dismissed as soon as the primary servicedesires. * Jae Busby M.B.B.S. - 11/20/2024 1:29 PM CDT Pulmonary Consult Service Progress Note SUBJECTIVE No major overnight events. Patient was seen today and reports feeling much better and back at baseline. He was on 2L of O2 via NC but oxygen was weaned off and he was satting >95%. Sitting in chair comfortably and had no concerns or complaints. He is working with director of physical security pay and feel that his breathing is improving. VITAL SIGNS Vitals: 11/20/24713 BP: 112/58 Pulse: 70 Resp: 18 Temp: 36.4 ??C SpO2: 97% PHYSICAL EXAM Vitals reviewed. Constitutional General: He is not in acute distress. Cardiovascular Rate and Rhythm: Normal rate and regular rhythm. Pulses: Normal pulses. Heart sounds: Normal heart sounds. No murmur heard. Pulmonary Effort: Pulmonary effort is normal. Breath sounds: Wheezing (End-expiratory) present. No rhonchi or rales. Musculoskeletal Right lower leg: No edema. Left lower leg: No edema. Neurological Mental Status: He is alert. LABS Recent Labs 11/19/242021 HGB 11.5 L HCT 35.0 L WBC 14.5 H PLT 313 PROBLEM LIST Hospital-acquired pneumonia (HAP), improving. New oxygen requirement at rest (resolved during evaluation). 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 HFpEF with possible mild volume overload. Chronic respiratory disease with baseline oxygen requirement on exertion and at night. DANAE on CPAP ASSESSMENT / PLAN Mr. Marcos Perez is a 89 y.o. male with a past medical history significant for eosinophilic asthma, HFpEF, and recent pneumonia who re- presented with dyspnea, low-grade fevers, and upper-lobe ground-glass opacities on CT imaging. His infectious workup has been negative, and he is currently receiving appropriate empiric therapy for hospital-acquired pneumonia with cefepime. Infectious workup has been negative. During the pulmonary evaluation, oxygen was successfully discontinued, and he maintained saturations between 93 - 97%, suggesting that his resting hypoxia has resolved. He remains mildly short of breath but without desaturation. Given his imaging and clinical course, we recommend completing a five-day course of cefepime for hospital-acquired pneumonia coverage. Additionally, initiate a short course of systemic corticosteroids for five to seven days to address reactive airway component and inflammation. Although he has required longer tapers in prior episodes, no prolonged taper appears necessary at this time. Suspect that patient will continued to have subjective shortness of breath for a few weeks given age and pneumonia but reassuringly, he has been maintaining his saturation and he is feeling at baseline after starting prednisone. The patient should continue his baseline asthma regimen and follow closely in the asthma clinic with Dr. Talha Garcia after discharge. - Continue cefepime to complete a five-day total course for HAP coverage. - Continue systemic corticosteroids with prednisone 40 mg daily for 5-7 days - Continue home asthma therapy: Dupixent, Pulmicort, and Arnuity Ellipta (Prio) per outpatient regimen. - Optimize volume status per primary team - Encourage incentive spirometry and ambulation. - Arrange outpatient follow-up with Dr. Talha Garcia ([facility]) for reassessment after discharge. - Okay to discharge patient from Pulmonary standpoint Patient seen and discussed with supervising automotive consultant, Dr. Javed. Please refer to his supervisory note for further details. Thank you for the consult. We will signoff at this time. Please page pulmonary consulting service with questions or concerns. London Lua. Pulmonary critical care fellow, PGY 4 Cosigned by Jacky Javed M.D. at 11/20/2024 4:01 PM CDT * Lola Crowell - 11/20/2024 11:39 AM CDT Occupational Therapy [facility] Inpatient Treatment SUBJECTIVE Patient's Name: Marcos Perez Referring/Attending Provider: Gerard Cook M.D. Reason for Referral: Occupational Therapy Evaluation and Treatment Onset Date: 11/16/2024 History of Present Illness: Marcos Perez is a 89 y.o. male who was admitted to [facility] in [place] on 11/16/2024 for Pneumonia Community Acquired [J18.9] Shortness Of Breath [R06.02]. Precautions Other Precautions: SOB during ambulation Pain Assessment: Pain Ratin/10 on a 0-10 point scale Subjective Comments: Agreeable to therapy session. OBJECTIVE Vital Signs: Vitals taken during session: Pulse rate: 72 bpm, Blood pressure: 117/68 mmHg, MAP: 83, O2 saturation: 97%, and O2 flow: Room air Vitals stable per chart review. Outcome Measures: -[facility] Inpatient Short Form: Putting on and taking off regular lower body clothing?: A Little Putting on and taking off regular upper body clothing?: None Taking care of personal grooming such as brushing teeth?: None Bathing (including washing, rinsing, drying)?: A lot Toileting, which includes using toilet, bedpan, or urinal?: A Little Eating meals?: None Daily Activities Raw Score (max 24): 20 Daily Activities Standardized Score: 42.03 Interpretation: Based on scoring guidelines using the raw score value: Those going to home had an average score at or above 18 Those going to facility had an average score at or below 17 Clinicians answer the -[facility] Inpatient Short Form based on observed patient activity and/or clinical judgment (patient can be scored without physically performing each activity). The -PAC is one ofmany factors to consider when discharge planning. Cognition: No observable concerns with cognition at this time Will further assess and monitor as warranted Therapeutic Interventions: ACTIVITIES OF DAILY LIVING: GROOMING - Assist Level: stand by assist - Patient Location: standing at sink - Activity: brushing teeth - regular or soft brush, washing face, washing hands - Therapist Delivery: assessed - Assist/Cues Provided: none LOWER BODY DRESSING - Assist Level: independent - Patient Location: toilet - LB Dressing Item: incontinent brief - Therapist Delivery: assessed - Assist/Cues Provided: none - Adaptive Equipment: none TOILETING - Assist Level: modified independent - Patient Location: toilet - Activity: clothing management, pericare - Therapist Delivery: assessed, educated, instructed - Assist/Cues Provided: verbal for proper hand placement, increased time, safety - Adaptive Equipment: grab bars - Utilized grab bars after initial cue provided by OT. FUNCTIONAL TRANSFERS: SIT TO STAND - Assist Level: stand by assist - Device: front wheeled walker and gait belt - Surface: chair - Therapist Delivery: assessed, educated - Assist/Cues Provided: verbal for proper hand placement - Initial verbal cue provided for hand placement, patient adhered well after initial cue. SIT TO STAND - Assist Level: stand by assist - Device: front wheeled walker and gait belt - Surface: toilet, chair - Therapist Delivery: assessed, educated - Assist/Cues Provided: verbal for proper hand placement - Initial verbal cue provided for hand placement when standing from chair, patient adhered well after initial cue. No cues needed for safety or hand placement when standing up from toilet. TRANSFER - Assist Level: stand by assist - Device: front wheeled walker and gait belt - Approach: to and from, ambulating - Surface: chair, toilet, sink - Therapist Delivery: assessed, educated - Assist/Cues Provided: verbal for maintaining slow speed, managing O2 Line - Patient adhered well to verbal cues after initial cues provided. Demonstrated good activity tolerance, balance, and posture. TOILET TRANSFER - Assist Level: stand by assist - Device: front wheeled walker and gait belt - Approach: to and from, ambulating - Surface: toilet - Therapist Delivery: assessed - Assist/Cues Provided: verbal for proper hand placement - Adaptive Equipment: grab bars FUNCTIONAL MOBILITY: In-room mobility performed with supervision/stand by assistance and front wheeled walker and gait belt. Ambulated roughly 15 feet. Good activity tolerance, balance, and posture throughout mobility. Education/Training Provided: - Energy conservation techniques - Gait belt use - Safe transfer techniques Team Communication: The patient's status was discussed and coordination of care occurred with RN Patient was left in bedside chair with chair alarm on at end of session with call light in reach, all needs met and questions answered. Assessment Discharge Therapy Needs - OT: Ongoing skilled occupational therapy If skilled therapy is recommended, skilled therapy can include occupational therapy provided in home health, outpatient or post-acute facility. The location of these services is determined by patient's care team in partnership with patient/family. Level of Care Needed - OT: Assistance with toilet/shower transfers, Assistance with meal preparation, Assistance with transportation, Assistance with housekeeping, Assistance with shopping, Assistance with dressing, Assistance with toileting Barriers to Discharge Home: Current functional status, Fall risk Clinical Impression: Currently, patient presents with impairments including decreased strength and decreased activity tolerance resulting in functional deficits including impaired functional mobility and decreased independence with self care tasks. Based on performance today, patient has good potential to complete acute care goals. Patient was motivated and has improved in independence and activity tolerance, compared to previous session. He adheres well to walker and activity safety precautions, but his greatest barrier is shortness of breath, resulting in limited activity tolerance. At baseline, patient lives in an NURSING HOME and receives help with mobility as needed for I/ADLs. He will require assistance from a fun tional caregiver at anticipated discharge to SNF. Patient is currently functioning below baseline and further skilled occupational therapy is necessary to increase participation in I/ADLs. The patient will benefit from ongoing occupational therapy services while hospitalized in order to improve engagement and independence in meaningful occupations. In-Hospital Activity and Mobility Recommendations: - Transfer into chair 3x/day with stand by assistance. - Ambulate to bathroom for toileting - Eat ALL meals in chair - Active engagement in daily self-care routine (oral cares, face washing, combing hair) Plan OT Plan Comments: Next Session: Verbalize energy conservation/activity modification strategies, complete TB dressing using AE as needed Functional Goals: OT Goal #1: Patient will verbalize energy conservation/activity modification strategies independently prior to discharge. OT Goal #1 Status: Ongoing OT Goal #2: Patient will complete toilet transfer, including clothing management pericares with modified independence prior to discharge. OT Goal #2 Status: Progressing OT Goal #3: Patient will complete total body dressing with modified independence prior to discharge. OT Goal #3 Status: Ongoing OT Goal #4: Patinet will ambulate household or community distances with stand by assistance to complete I/ADL prior to discharge. OT Goal #4 Status: Progressing Progress: Progressing toward goals Rehab potential: Mr. Perez has good potential to achieve established occupational therapy goals within the time frame outlined below. OT Frequency: OT Amount: 1 visit per day OT Frequency: 5 times per week OT Inpatient Duration : Until goals are met or hospital discharge Requires Inpatient OT Follow-Up: Yes OT - Next Inpatient Appointment: 11/21/24 Plan: Continue with current plan Treatment interventions may include: Treatment Interventions: Therapeutic functional activity, Therapeutic exercise, Self-care/home management Occupational Therapy Attestation Statement: Patient agrees with the plan of care and goals. Billing: Time Spent with Patient Therapeutic Interventions Home Management Training (min): 28 min Time Tracking Total Timed Units (min): 28 min Total Treatment Time (min): 28 min Lola Crowell Cosigned by Palmira Rosales O.T., O.T.D. at 11/20/2024 3:43 PM CDT Associated attestation - Palmira Rosales O.T., O.T.D. - 11/20/2024 3:43 PM CDT This therapist has reviewed all documentation and supervised today???s session. The therapist agrees with the plan developed in collaboration with the patient. * Rosemarie Sandoval P.T., D.P.T. - 11/20/2024 10:29 AM CDT Physical Therapy Inpatient Treatment SUBJECTIVE Patient's Name: Marcos Perez Referring/Attending Provider: Gerard Cook M.D. Reason for Referral: Physical Therapy Evaluate and Treat Onset Date: 11/16/2024 History of Present Illness: Marcos Perez is a 89 y.o. male who was admitted to [facility] in [place] on 11/16/2024 for Pneumonia Community Acquired [J18.9] Shortness Of Breath [R06.02] Precautions Other Precautions: SOB during ambulation Pain Assessment: Pain not reported during session. Patient/Caregiver Goals: Return to home and Return to prior level of function Subjective Comments: Agreeable to therapy session. OBJECTIVE Vital Signs Vitals taken during session: O2 saturation: 89-96% and O2 flow: 2 L/min nasal cannula Outcome Measures: AM-PAC Inpatient Short Form: AM-PAC Basic Mobility (V.2) How much help from another person do you currently need???If the patient hasn't done an activity recently, how much help from another person do you think he/she would needif he/she tried? 1. Turning from your back to your side while in a flat bed without using bedrails?: None 2. Moving from lying on your back to sitting on the side of a flat bed without using bedrails?: None 3. Moving to and from a bed to a chair (including a wheelchair)?: A Little 4. Standing up from a chair using your arms (e.g., wheelchair, or bedside chair)?: A Little 5. To walk in hospital room?: A Little 6. Climbing 3-5 steps with a railing?: A Lot AM-PAC Basic Mobility (V.2) Raw Score: 19 AM-PAC Basic Mobility (V.2) Standardized Score: 42.48 Interpretation: Based on scoring guidelines using the raw score value: Those going to home had an average score at or above 18 Those going to facility had an average score at or below 17 Clinicians answer the AM-PAC Inpatient Short Form based on observed patient activity and/or clinical judgement (patient can be scored without physically performing each activity). The AM-PAC is one of many factors to consider when discharge planning. 30 second sit to stand test Score:11 Interpretation: 9-12 = Moderate fall Risk. Male Normal Values for Age Range Age 85-89, score of 8-14 Therapeutic Interventions: SUPINE TO SIT: - Assist Level: supervision of 1 - Device: head of bed elevated and bedrail - Therapist Delivery: assessed, facilitated, and instructed - Assist/Cues Provided: verbal for completion of transfer SIT <> STAND: - Assist Level: stand by assist of 1 - Device: gait belt and front wheeled walker - Surface: bed and chair - Therapist Delivery: assessed, facilitated, and instructed - Assist/Cues Provided: verbal for anterior weight shift, safety, sequencing, technique, and upper extremity placement - Comments: able to perform easily with good lower extremity strength present GAIT: - Distance: 400 feet - Assist Level:stand by assist of 1 - Device: gait belt and front wheeled walker - Quality: decreased base of support, decreased gait speed, decreased step height, decreased step length, decreased toe off, forward flexed posture - Therapist Delivery: assessed, facilitated, and instructed - Assist/Cues Provided:verbal for breathing techniques, forward gaze, pacing, and upright posture - Comments: increased activity tolerance today with less shortness of breath, overall steady THERAPEUTIC ACTIVITY: Discussed mobility status, plan of care, discharge plans and home exercise program. THERAPEUTIC EXERCISE: Standing Therapeutic Exercise: - Side: bilateral - Mode: active range of motion - Exercises: sit to/from stands - Repetitions: 7 then 11 reps - Assist/cues provided: full range of motion EDUCATION: -Role of PT in acute setting and collaborated with patient and/or family on goals and plan of care. -Fall prevention -Home exercise program -Home safety The patient's status was discussed and the following coordination of care occurred with the RN Patient was left in bedside chair with chair alarm on at end of session with call light in reach, all needs met and questions answered. Assessment Discharge Therapy Needs - PT: Ongoing skilled physical therapy If skilled therapy is recommended, skilled therapy can include physical therapy provided by home health, outpatient clinic, or a post-acute facility. The location of these services is determined by the patient's care team in partnership with patient/family. Level of Care Needed - PT: Assistance with transfers (Comment), Assistance with walking and moving around the home, Physical assistance needed Barriers to Discharge Home: Current functional status, Fall risk Equipment Recommended - PT: Front-wheeled walker From a physical therapy perspective, the level of care above has been recommended for Mr. Perez after hospital discharge. This level of care is based on his functional abilities during today's session. This may change throughout the hospital course and will be updated as appropriate. Clinical Impression: Patient demonstrates good tolerance to today's PT session. Patient performed bed mobility with supervision, able to perform easily under own power. Patient performed STS transfer with SBA and FWW, cues for anterior weight shift, slow to rise and forward flexed posture. Patient ambulated 400 ft withSBA and FWW, increased activity tolerance with less shortness of breath today as compared to previous sessions, overall steady gait. Patient is appropriate for continued inpatient PT and will be followed through remainder of hospital stay to progress functional mobility for safe discharge home. Rehab potential: Mr. Taubman has Good potential to achieve established physical therapy goals within the time frame outlined below. Progress: Progressing toward goals Recommendations for mobility/activity while hospitalized: chair 3x/day with stand by assist (2 hours max in chair at a time) gait 5x/day with stand by assist lower extremity exercises 3x/day Plan PT Plan Comments: progress ambulation tolerance with less SOB, continue to progress HEP Functional Goals: PT Inpatient Goals PT Goal #1: Patient will be able to perform sit to stand transfer with mod I and FWW in order to progress functional mobility to PLOF. PT Goal #1 Status: Progressing PT Goal #2: Patient will be able to perform bed mobility independently in order to progress functional mobility to PLOF. PT Goal #2 Status: Progressing PT Goal #3: Patient will be able to ambulate 100 ft with mod I and FWW in order to progress functional mobility for safety upon discharge. PT Goal #3 Status: Progressing PT Goal #4: Patient will be able to perform HEP independently in order to promote functional strength needed for discharge. PT Goal #4 Status: Progressing Treatment Plan: Plan: Continue with current plan PT Amount: 1 visit per day PT Frequency: 5 times per week PT Inpatient Duration : Until goals are met or hospital discharge Requires Inpatient Follow-Up: Yes PT - Next Inpatient Appointment: 11/21/24 Patient agrees with the plan of care and goals. Treatment interventions may include: Treatment/Interventions: Therapeutic exercise, Therapeutic functional activity, Neuromuscular re-education, Gait training, Self-care/home management Billing: Time Spent with Patient Therapeutic Interventions Gait Training (min): 10 min Therapeutic Activity (min): 5 min Therapeutic Exercise (min): 5 min Time Tracking Total Timed Units (min): 20 min Total Treatment Time (min): 20 min Rosemarie Sandoval P.T., D.P.T. * Nydia Jasso R.N. - 11/20/2024 8:23 AM CDT SUBJECTIVE Discharge planning- reconnects to patient's assisted living and home oxygen have been completed. OBJECTIVE Anticipated Needs Anticipated Needs Functional Status: Transportation use (drive car, use taxi/bus), Meal preparation, Medication set-up/administration, Housekeeping Assistive Devices: None Anticipated Modifications to the Patient's Home: None Transportation Needs: Support from family Does the patient need discharge transport arranged?: No Anticipated Discharge Destination: [facility] or Intermediate Care Facility Patient is understanding and accepting of the discharge plan as described below. ASSESSMENT / PLAN Assessment Those noted above appear to have insight into the patient's needs at this time and are planning appropriately for discharge needs. They report agreement with the below plan with no further questions at this time. No barriers identified at this time. Plan The patient agrees with the following plan. Patient's Anticipated Discharge Destination: [facility] or Intermediate Care Facility Assisted Living Destination: Facility: [facility] Contact: Mady Patient was receiving the following care: Med management, bathing until hospital, no dressing and grooming. Patient cannot return on weekend. Patient needs to be back by 4 pm . Additional equipment needed for return: CPAP Patient cannot return if he is needing more than a minimal am and pm care.. COVID screening needed before patient can return: no Return transportation to be provided by family. NURSING to arrange transportation and transport oxygen if needed. Was patient receiving other services (ie: home health, infusions, oxygen, etc): NURSING: - Call report on morning of dismissal. - Complete documentation in the Discharge Navigator including Nursing Report Info and Facility/NextLevel of Care Info - Send copy of After Visit Summary with patient at discharge. PRIMARY SERVICE: - Provide written prescriptions for all narcotics. Non Profit Job Titles : -Reviewed patient's insurance coverage for the services noted above. The patient appear(s) to have an understanding of this. -Will continue to follow and assist if needs arise. Oxygen Reconnect: Durable Medical Equipment - Admitted Since 11/16/2024 Service Provider Services Address Phone Fax Patient Preferred [facility] Durable Medical Equipment [address], [place] [address] -- Contact: intake Respiratory Equipment : concentrator with portability Oxygen provider reports patient???s current orders are for 2 liters. NURSING: - Arrange transportation oxygen tank if needed. - If new oxygen requirements are needed, assist primary service with new prescription and fax to provider. PRIMARY SERVICE: - Complete and sign new oxygen prescription if needed. Non Profit Job Titles : -Reviewed patient's insurance coverage for the services noted above. The patient appear(s) to have an understanding of this. -Will continue to follow and assist if needs arise. Transportation upon dismissal will be provided by family--daughter or one of his sons. grab driver encouraged the patient to reach out with any questions/concerns. Care Management will continue to assess for homegoing needs with the interdisciplinary team. Georgie Jasso R.N. 11/20/2024 * Lenny Brown APRN, C.N.P., D.N.P. - 11/20/2024 7:36 AM CDT T Medicine 5 ([facility]) Progress Note SUBJECTIVE Resting comfortably at the bedside when seen on bedside rounds. Patient notes no new concerns today. He notes he is feeling improved from yesterday after starting steroids. I have reviewed the current medication list. OBJECTIVE VITAL SIGNS Temperature: [36.4 ??C-36.8 ??C] 36.4 ??C Heart Rate: [87] 87 Resp Rate: [18-26] 18 Blood Pressure: (112-136)/(58-66) 112/58 SpO2: [90 %-97 %] 97 % Flow Rate (L/min): [1 L/min-3 L/min] 3 L/min Weight: [89.1 kg] 89.1 kg BMI (Calculated): [31.7 kg/m??] 31.7 kg/m?? Pulse Rate: [70-83] 70 PHYSICAL EXAMINATION General: Patient sitting up comfortably in recliner, in no acute distress. Mental: Alert and oriented x4, answers questions appropriately. Eyes: Sclerae anicteric, conjunctivae clear. ENT: Moist mucous membranes, atraumatic. Cardiac: Normal rate, regular rhythm. No murmurs, rubs, or gallops appreciated. Lungs: Appears comfortable on 2 L via NC. Abdomen: Soft, nontender, nondistended. Bowel sounds auscultated x4 quadrants. Extremities: Trace non-pitting bilateral lower extremity edema. Skin: No rash or jaundice. Warm and well perfused. Neuro: No gross motor/sensory deficits appreciated. DIAGNOSTICS Hgb 11.5, Hct 35.0, white blood cell count 14.5, platelets 313. CRP 79.9. ASSESSMENT / PLAN Mr. Marcos Perez is an 89-year-old male who presented to the [facility] ED on 11/16 with worsening dyspnea at rest as well as with exertion, night sweats and hypoxia in the setting of recent discharge on 11/12/24 for community acquired pneumonia. # Healthcare Associated Pneumonia # Gram negative pneumonia # Acute Diastolic (Congestive) Heart Failure (HCC) # Eosinophilic Asthma (HCC) # Chronic Respiratory Failure (HCC) on 2 L NC @ night and w/activity # Upper Lobe groundglass airspace opacities Following discharge on 11/13, patient developed night sweats on evening of 11/14 followed by acute worsening of respiratory status the following day. His white count has increased from 10.1 to 15.0. Blood cultures demonstrate no growth. Given recent hospitalization he was initiated on broad spectrum antibiotics for HAP, although will keep in mind possibility of eosinophilic pneumonia given upper lobe location and bilateral nature of the opacities. Consulted Pulmonary Medicine given increased white count and limited clinical improvement with broad spectrum antibiotics. Pulmonology recommended treatment with antibiotics for 5 days as well as prednisone 40 mg for 5 days with an additional 3-5 days if needed. He was treated for mild CHF exacerbation with diuretics while hospitalized. PLAN: Appreciate Pulmonology consult and recommendations Start Prednisone 40 mg for 5 course, possibly extend 3-5 more days after Continue IV Cefepime x 5 days Arrange outpatient follow-up with Dr. Linda [facility] ([facility]) for reassessment after discharge. Appreciate COPD RT consult and evaluation Repeat oxygen studies if requiring greater than home requirement prior to discharge Appreciate Infectious Disease recommendations (now signed off) Continue IV Cefepime for 3-5 days RPP negative Legionella and Strep Pneumo urine antigens negative Resumed home torsemide 60 mg daily on 11/19/2024. Strict I/Os, daily weights Continue TISHA wraps to bilateral lower extremities # Atrial Fibrillation Paroxysmal (HCC) Continue home Xarelto Diet: Adult Diet Regular; Cardiovascular Tubes/lines: PIV VTE prophylaxis: therapeutic anticoagulation - Xarelto Current Activity/Mobility: BMAT Level 4 (Able to stand and walk; needs staff assist if fall risk factors identified) Fall Injury Prevention: I have discussed My Plan for Safe Activity with the patient. Disposition: Home Stable to discharge criteria (not yet met): Vital signs, Functional status, Tests/procedures/consults, and Acute care monitoring needs The above plan of care was discussed with Dr. Cook, HIM automotive consultant. I personally spent a total of 50 minutes providing and coordinating care today. * Asaf Colbert - 11/20/2024 4:26 AM CDT 11/19/242141 BPAP/CPAP Therapy BPAP/CPAP Interface Full face mask Patient's Own Equipment Mask;Tubing;CPAP;Patient able to manage equipment on own;Equipment inspected (per site policy) Skin barrier Refused $BPAP/CPAP Yes Pt placed on CPAP for the night on the above settings. Pt is resting comfortably in bed. Device is appropriately on, plugged into red outlet, has water in humidity chamber and has an appropriate leak. Please contact RT if any questions. Electronically signed by: Asaf Colbert 11/20/24 4:27 AM CDT * Laxmi Parr V., R.R.T., L.R.T. - 11/19/2024 10:35 AM CDT [facility] Chronic Pulmonary Disease Educator (RT) Initial Visit: COPD Admission for Shortness Of Breath Lab Results Component Value Date WBC 15.0 (H) 11/18/2024 HGB 10.8 (L) 11/18/2024 HCT 32.9 (L) 11/18/2024 MCV 85.0 11/18/2024 PLT 293 11/18/2024 Lab Results Component Value Date/Time EOSINOPHILS 0.11 11/18/20242004 EOSINOPHILS <0.03 11/17/20242031 EOSINOPHILS 0.47 11/16/20242200 EOSINOPHILS 0.37 11/11/2024 2236 EOSINOPHILS 0.74 (H) 11/09/2024 2332 EOSINOPHILS 0.87 (H) 11/09/2024 1649 EOSINOPHILS 0.04 10/13/2023 1425 EOSINOPHILS 0.04 10/11/2023 0828 EOSINOPHILS 0.03 10/10/2023 0929 EOSINOPHILS <0.03 10/09/2023 0904 EOSINOPHILS <0.03 10/08/2023 0657 EOSINOPHILS <0.03 10/07/2023 0240 Current home medications prior to admission: Breo Ellipta, 200/25 mcg Budesonide 0.5 mg nebulized BID Alb HFA PRN DuoNeb PRN Dupixent Smoking Status: Former smoker Summary of COPD RT visit: Patient has excellent inspiratory capacity, is able to use any type of inhaler. No need for medication change at this time. Reviewed cleaning techniques for CPAP supplies and nebulizer supplies. Reviewed inhaler technique Laxmi Parr R.R.T., L.R.T. Pulmonary Disease Educator 11/19/24 10:35 AM CDT Pulmonary Disease Educators are available: Tuesday-Tuesday, 7:00 - 3:00 and as needed. Pager [phone] Pager [phone] * Lilli Rosales Pharm.D., R.Ph. - 11/19/2024 9:12 AM CDT Images from the original note were not included. Pharmacist Progress Note Reason for admission: 89 y.o. male who presents with shortness of the breath, subjective fever, night sweats, and hypoxia, last discharged 11/11/24 (11/09-11/11 for CAP admission) PMH: atrial fibrillation on anticoagulation, eosinophilic asthma, hyperlipidemia, GERD, depression,prolonged QT syndrome, HFpEF (EF 53%), history complete heart block April 1998 s/p pacemaker, and mild CAD via angiogram 04/2023, prior NSTEMI 2019 no stents placed. 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 Plan to continue x3-5 day course Asthma - continues home Breo Ellipta, Pulmicort nebs, DuoNebs, Singulair HFpEF: SEED LABORATORY ASSISTANT torsemide held with IV lasix 60mg/day for additional diuresis. SEED LABORATORY ASSISTANT K 20meq BID continued, K 3.9 this AM-monitoring Lilli Rosales, Pharm.D., R.Ph. Admission Medication History Note Adherence issues: No concerns Medication list source: Outside facility MAR Medication related information: Per outside facility, last dose of Dupixent was 11/15 Prior to Admission Medications Med List Status: Pharmacy Complete Set By: Lilli Rosales, Pharm.D., R.Ph. at 11/19/2024 11:43 AM Taking? Last Dose Informant Start Date End Date LT acetaminophen (TylenoL) 500 mg tablet Unknown -- 05/17/24 -- Take 500 mg by mouth every 6 (six) hours as needed for pain or fever. alum-mag hydroxide-simeth (Cyndy-Lanta) 200-200-20 mg/5 mL suspension Unknown -- -- -- Take 30 mL by mouth as needed for indigestion. bisacodyL (Dulcolax) 10 mg suppository Unknown -- -- -- Insert 10 mg into the rectum daily as needed for constipation. budesonide (PULMICORT) 0.25 mg/2 mL nebulizer solution 11/18/2024 -- 02/15/23 -- Inhale 0.25 mg 2 (two) times a day. cefpodoxime (Vantin) 200 mg tablet 11/18/2024 -- 11/12/24 11/19/24 Take 1 tablet (200 mg total) by mouth 2 (two) times a day for 5 days. . DME Oxygen -- -- 08/20/23 -- DME Order - for details see Order Report dupilumab (Dupixent Pen) 300 mg/2 mL injection Past Week -- 04/12/24 -- Inject 2 mL (300 mg total) under the skin as directed. Inject 600 mg under the skin once. Start 300mg under the skin every 2 weeks 14 days after the 600 mg injection. ferrous sulfate 325 mg (65 mg iron) tablet Past Week -- 05/12/23 -- Take 1 tablet (65 mg of iron total) by mouth every other day. finasteride (PROSCAR) 5 mg tablet 11/18/2024 Self -- -- Take 5 mg by mouth daily. fluticasone furoate-vilanteroL (Breo Ellipta) 100-25 mcg/actuation inhaler 11/18/2024 -- 10/12/23 -- Inhale 1 puff once daily. ipratropium-albuterol (DUO-NEB) 0.5-2.5 mg/3 mL nebulizer solution Unknown Self 10/05/18 -- Take 3 mL by nebulization 4 (four) times a day as needed for wheezing or shortness of breath. loperamide (Imodium A-D) 2 mg tablet Unknown -- -- -- Take 2 mg by mouth as needed for diarrhea. magnesium hydroxide 400 mg/5 mL suspension Unknown -- -- -- Take 30 mL by mouth as needed. montelukast (SINGULAIR) 10 mg tablet Past Week Self 11/16/19 -- Take 1 tablet by mouth at bedtime. nitroglycerin (NITROSTAT) 0.4 mg SL tablet Unknown Self 06/22/16 -- Place under the tongue every 5 (five) minutes as needed for chest pain. omeprazole (PriLOSEC) [address] capsule 11/18/2024 -- 12/04/21 -- Take 20 mg by mouth every morning before breakfast. polyethylene glycol (Miralax) 17 gram powder packet Unknown -- 11/12/24 -- Take 1 packet by mouth daily as needed for constipation. Dissolve each 17 g dose in 240 mLs (8 ounces) of beverage. potassium chloride (KLOR-CON M) 10 mEq ER tablet 11/18/2024 -- 08/30/22 -- Take 20 mEq by mouth 2 (two) times a day with meals. sennosides (senna) 8.6 mg tablet Unknown -- -- -- Take 8.6 mg by mouth at bedtime as needed for constipation. sertraline (ZOLOFT) 50 mg tablet 11/18/2024 -- 12/04/21 -- Take 50 mg by mouth daily. torsemide (DEMADEX) 20 mg tablet 11/18/2024 -- 06/27/23 -- take 2 tablets by mouth daily. Patient taking differently: Take 60 mg by mouth daily. Xarelto 20 mg tablet 11/18/2024 -- 07/17/21 -- Take 20 mg by mouth daily. * Rosemarie Lee P.A.-C. - 11/19/2024 8:24 AM CDT T Medicine 5 ([facility]) Progress Note SUBJECTIVE Mr. Cecil Perez was seen and examined this morning on rounds. He was seen sitting upright in his recliner completing a nebulizer treatment. He states he is still feeling short of breath, about the same as yesterday. Otherwise, he has no acute concerns. He denies any fever, chills, or night sweats. Discussed plan including consult to pulmonology, continuation of IV antibiotics, and continued laboratory monitoring. I have reviewed the current medication list. OBJECTIVE VITAL SIGNS Temperature: [36.4 ??C-36.8 ??C] 36.8 ??C Resp Rate: [19-23] 23 Blood Pressure: (127-136)/(62-66) 136/62 SpO2: [90 %-97 %] 97 % Flow Rate (L/min): [1 L/min-2 L/min] 2 L/min Weight: [89.1 kg] 89.1 kg BMI (Calculated): [31.7 kg/m??] 31.7 kg/m?? Pulse Rate: [69-83] 83 PHYSICAL EXAMINATION General: Patient sitting up comfortably in recliner, in no acute distress. Mental: Alert and oriented x4, answers questions appropriately. Eyes: Sclerae anicteric, conjunctivae clear. ENT: Moist mucous membranes, atraumatic. Cardiac: Normal rate, regular rhythm. No murmurs, rubs, or gallops appreciated. Lungs: Mildly tachypneic with shallow inspirations. Expiratory wheeze throughout. Somewhat labored respiration on 2 L via NC. Abdomen: Soft, nontender, nondistended. Bowel sounds auscultated x4 quadrants. Extremities: Trace non-pitting bilateral lower extremity edema. Skin: No rash or jaundice. Warm and well perfused. Neuro: No gross motor/sensory deficits appreciated. DIAGNOSTICS I have independently reviewed labs, imaging, EKG, and provider notes via EMR. ASSESSMENT / PLAN Mr. Marcos Perez is an 89-year-old male who presented to the [facility] ED on 11/16 with worsening dyspnea at rest as well as with exertion, night sweats and hypoxia in the setting of recent discharge on 11/12/24 for community acquired pneumonia. 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 Today, he continues to feel short of breath despitebroad spectrum antibiotics. His white count has increased from 10.1 to 15.0. Blood cultures demonstrate no growth. Given recent hospitalization he was initiated on broad spectrum antibiotics for HAP,although will keep in mind possibility of eosinophilic pneumonia given upper lobe location and bilateral nature of the opacities. Consulted Pulmonary Medicine given increased white count and limited clinical improvement with broad spectrum antibiotics. Additionally, his exam was consistent with at least some element of HFpEF exacerbation given lower extremity edema and elevated JVP. His elevated JVP and lower extremity edema have improved with IV diuresis yesterday with total of 80 mg IV Lasix resulting in net negative 1.7 L on the day. Previously reported dry weight of 195 lbs, his weight this afternoon has improved towards his dry weight to 196 lbs (89.1 kg). PLAN: Appreciate Pulmonology consult and recommendations Start Prednisone 40 mg for 5 course Continue IV Cefepime x 5 days Arrange outpatient follow-up with Dr. Linda Garcia ([facility]) for reassessment after discharge. Appreciate COPD RT consult and evaluation Repeat oxygen studies if requiring greater than home requirement prior to discharge Appreciate Infectious Disease recommendations (now signed off) Continue IV Cefepime for 3-5 days RPP negative Legionella and Strep Pneumo urine antigens negative Resume home torsemide 60 mg daily Strict I/Os, daily weights Continue TISHA wraps to bilateral lower extremities # Atrial Fibrillation Paroxysmal (HCC) Continue home Xarelto Diet: Adult Diet Regular; Cardiovascular Tubes/lines: PIV VTE prophylaxis: therapeutic anticoagulation - Xarelto Current Activity/Mobility: BMAT Level 4 (Able to stand and walk; needs staff assist if fall risk factors identified) Fall Injury Prevention: I have discussed My Plan for Safe Activity with the patient. Disposition: Home Stable to discharge criteria (not yet met): Vital signs, Functional status, Tests/procedures/consults, and Acute care monitoring needs The patient was seen and evaluated with Dr. Cook, HIM automotive consultant. I personally spent a total of 50 minutes providing and coordinating care today. * Lilly Alcala - 11/18/2024 10:41 PM CDT 11/18/242129 BPAP/CPAP Therapy BPAP/CPAP Interface Full face mask Patient's Own Equipment Mask;Tubing;CPAP;Patient able to manage equipment on own;Equipment inspected (per site policy) Ventilator Parameters BPAP/CPAP Mode CPAP;Per Home Settings O2 Flow Rate 2 L/min NPPV EPAP (CPAP) Setting 15 cm H2O Humidification Heated humidifier Patient was placed on home PAP for the night. Ensured adequate water is in humidifier, device is plugged into red outlet, and verified settings. Please contact RT with any questions or concerns. Electronically signed by: Shelby Mckeon 11/18/24 10:42 PM CDT Under the direction of Christa Hicks ACCOUNTANT CLERK * Fred Leon M.D. - 11/18/2024 4:27 PM CDT I saw and evaluated Marcos Perez on rounds today with our Medicine 5 team, and I agree with the findings and plan as documented in today's progress note by Rosemarie Lee PA-C with the following comments: 89-year-old man with comorbidities as listed below presents with fever, night sweats, cough, dyspnea and increased oxygen requirement in the setting of recent treatment for CPAP. Chest x-ray is reviewed and shows increased hazy infiltrates in the right mid lung compared to November 09. CT of the chest is reviewed and shows scattered interstitial and ground-glass infiltrates in both lungs. On examination he has JVP visible in the lower 3rd of the neck seated, increased work of breathing at rest with saturation 94% on 2 L nasal cannula. Bilateral lower extremity edema NT proBNP is 988 MRSA nares is negative # healthcare associated pneumonia # acute exacerbation of HFpEF # eosinophilic asthma # DANAE on CPAP # acute on chronic chronic hypoxic respiratory failure (baseline 2 L at night and with activity) # atrial fibrillation on Xarelto He already seems to be improving on the cefepime which we will plan to continue for 3-5 days. His home dose of torsemide is 40 mg. He received 60 mg of IV Lasix this morning; we will adjust as needed. We suspect that his HF exacerbation is secondary to the pneumonia. Please refer to Rosemarie's note dated today for additional details about our team's plan of care. * Amy Thomas R.R.T., L.R.T. - 11/18/2024 4:10 PM CDT 11/18/24 1610 Sputum Induction Procedure $Sputum Induction Charge Yes Induced sputum completed. Pt unable to cough anything up. RN and service notified. Electronically signed by: Amy Henry R.R.T., L.R.T. 11/18/24 4:25 PM CDT * Alysa Flaherty M.A., O.T. - 11/18/2024 2:59 PM CDT 11/18/24 1897 Reason Therapy Missed Reason Therapy Missed Receiving other care (Orders received and chart reviewed. Patient away at CT. Will follow-up tomorrow as appropriate.) Alysa Flaherty M.A., O.T. * Rosemarie Lee P.A.-C. - 11/18/2024 7:49 AM CDT T Medicine 5 ([facility]) Progress Note SUBJECTIVE Mr. Cecil Perez was seen and examined this morning on rounds. He states that after discharge on 11/12 he had significant night sweats on the evening of 11/13 followed by significant worsening of his dyspnea on 11/14. Noted that use of his portable concentrator at 2 L (baseline requirement) was not enough and he had to increase to 4 L. He was able to use his home concentrator at 2 L but continued to notice worsening dyspnea at rest and with exertion. States he had a dry cough that was not all that much unchanged from discharge. This morning, he states that he feels less fatigued but is still experienced more labored breathing even at rest. Reports that he did feel more swollen in his lower extremities on day of admission. States he was taking medications as prescribed on discharge including his torsemide. Plan of care discussed. I have reviewed the current medication list. OBJECTIVE VITAL SIGNS Temperature: [36 ??C-36.3 ??C] 36.3 ??C Heart Rate: [70-84] 70 Resp Rate: [16-23] 22 Blood Pressure: (116-126)/(54-74) 116/54 SpO2: [93 %-96 %] 93 % Flow Rate (L/min): [2 L/min] 2 L/min Weight: [90.9 kg] 90.9 kg BMI (Calculated): [32.4 kg/m??] 32.4 kg/m?? Pulse Rate: [70-87] 75 PHYSICAL EXAMINATION General: Patient sitting up comfortably in recliner, in no acute distress. Mental: Alert and oriented x4, answers questions appropriately. Eyes: Sclerae anicteric, conjunctivae clear. ENT: Moist mucous membranes, atraumatic. Cardiac: Normal rate, regular rhythm. No murmurs, rubs, or gallops appreciated. Elevated JVP. Lungs: Mildly tachypneic with shallow inspirations. Occasional wheeze auscultated, otherwise clear to auscultation bilaterally. Somewhat labored respiration on 2 L via NC. Abdomen: Soft, nontender, nondistended. Bowel sounds auscultated x4 quadrants. Extremities: Bilateral lower extremities with TISHA wraps in place. Skin: No rash or jaundice. Warm and well perfused. Neuro: No gross motor/sensory deficits appreciated. DIAGNOSTICS I have independently reviewed labs, imaging, EKG, and provider notes via EMR. ASSESSMENT / PLAN Mr. Marcos Perez is an 89-year-old male who presented to the [facility] ED on 11/16 with worsening dyspnea at rest as well as with exertion, night sweats and hypoxia in the setting of recent discharge on 11/12/24 for community acquired pneumonia. 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 Today, he is feeling less fatigued but is still somewhat tachypneic with labored breathing on exam. Given recent hospitalization he was initiated on broad spectrum antibiotics for HAP, although will keep in mind possibility of eosinophilic pneumonia given upper lobe location and bilateral nature of the opacities. Additionally, his exam was consistent with at least some element of HFpEF exacerbation given lower extremity edema and elevated JVP. Previously reported dry weight of 195 lbs, his weight this morningwould put him about 4 lbs above dry weight. PLAN: Appreciate Infectious Disease recommendations (now signed off) Chest CT for further classification of opacities Discontinue IV Vancomycin (MRSA swab negative) Continue IV Cefepime for 3-5 days If continued improvement consider discontinuation after 3 days. Ordered induced-sputum pneumonia panel, if not able to produce sputum, will order Respiratory Pathogen Panel PCR Legionella and Strep Pneumo urine antigens ordered IV Lasix 60 mg given this AM, will reassess I/Os this afternoon and repeat Lasix dosing if needed for net negative about 1 L Strict I/Os, daily weights Continue TISHA wraps to bilateral lower extremities # Atrial Fibrillation Paroxysmal (HCC) Continue home Xarelto Diet: Adult Diet Regular; Cardiovascular Tubes/lines: PIV VTE prophylaxis: therapeutic anticoagulation - Xarelto Current Activity/Mobility: BMAT Level 4 (Able to stand and walk; needs staff assist if fall risk factors identified) Fall Injury Prevention: I have discussed My Plan for Safe Activity with the patient. Disposition: Home Stable to discharge criteria (not yet met): Vital signs, Functional status, Tests/procedures/consults, and Acute care monitoring needs The patient was seen and evaluated with Dr. Fred Leon, HIM automotive consultant. I personally spent a total of 50 minutes providing and coordinating care today. * Delia Parr, Pharm.D., R.Ph., BCPS - 11/18/2024 7:31 AM CDT Pharmacist Progress Note Reason for admission: 89 y.o. 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 Baseline oxygen requirement is 2 L with CPAP (DANAE) at night and with activity OBJECTIVE Home medications: Held: PRNS, dupilumab q2 wk, torsemide (IV lasix) Interchange: PPI DVT Prophylaxis: therapeutic anticoagulation with xarelto (borderline for dose reduction, monitoring) Vancomycin Vancomycin indication: pneumonia Goal trough: 10-15 mcg/mL Renal replacement therapy: None Estimated Creatinine Clearance: 53.9 mL/min (by C-G formula based on SCr of 1 mg/dL). No results found for: VANCOTROUGH, VANCORANDOM, THIAGOAK ASSESSMENT / PLAN SOB, c/f HAP with sepsis: discharged 11/11 with cefpodoxime/doxycycline (completed 11/17), started oncefepime (renally adjusted) + Vancomycin 10/4PM, Dex 10mg x1 in ED Vancomycin Dose: Continue at 1250 mg every 24 hours Next level planned: prior to 11/20 dose, MRSA swab also ordered Asthma: continues home Breo Ellipta, Pulmicort nebs, DuoNebs, Singulair HFpEF: SEED LABORATORY ASSISTANT torsemide held with IV lasix 60mg/day for additional diuresis, SEED LABORATORY ASSISTANT K 20meq BID continued, K 5.0 this AM-monitoring Home medication reconciliation: requested medication list to be faxed from [facility] (left message, ), per patient nursing manages his medications now at the facility. Per fill history from [facility] pharmacy- appears to match fill history for prescription medications Delia Parr, Pharm.D., R.Ph., BCPS * Gayle Urena R.R.T., L.R.T. - 11/18/2024 2:03 AM CDT 11/17/24 2240 BPAP/CPAP Therapy BPAP/CPAP Interface Full face mask Patient's Own Equipment Mask;Tubing;CPAP;Patient able to manage equipment on own;Equipment inspected (per site policy) Skin barrier Refused Ventilator Parameters Ventilator Parameters (Select Groups) BPAP/CPAP Rows BPAP/CPAP Mode CPAP;Per Home Settings O2 Flow Rate 2 L/min NPPV EPAP (CPAP) Setting 15 cm H2O Humidification Heated humidifier Patient was seen for nighttime CPAP. Patient not ready to wear at this time, and does not need further RT assistance with CPAP placement. Ensured adequate water is in humidifier, device is plugged into red outlet, and verified settings. Please contact RT with any questions or concerns. Electronically signed by: Pilar MadisonROsmani., L.R.T. 11/18/24 2:03 AM CDT * Haylie Carson PharmSilvino, R.Ph., BCPS - 11/17/2024 3:39 PM CDT Pharmacist Vancomycin Clinical Monitoring Note Marcos Perez is a 89 y.o. male initiated on vancomycin for HAP. Goal trough level is 10-15 mcg/mL. Vancomycin 1500 mg (~17 mg/kg) x 1 given in ED @ 0900 today. OBJECTIVE Height: 167.6 cm Actual Weight: 89.2 kg Body mass index is 31.74 kg/m??. AdjBW: 74 kg IBW: 63.8 kg Serum creatinine: 1.2 mg/dL 11/16/242201 Estimated creatinine clearance: 44.5 mL/min ASSESSMENT / PLAN SCr appears at baseline. Will initiate vancomycin 1250 mg (~15 mg/kg) q24 hours for now. Initial trough level will be ordered as clinically indicated. Pharmacy will continue to follow. Haylie Carson Pharm.D., R.Ph., BCPS documented in this encounter H&P Notes * Alexander Garcia M.B., B.Ch., B.A.O. - 11/17/2024 9:32 AM CDT [facility] Medicine 5 ([facility]) Admission Note SUBJECTIVE CHIEF COMPLAINT/REASON FOR VISIT SOB HISTORY OF PRESENT ILLNESS Marcos Perez is a 89 y.o. male who presents with shortness of the breath, subjective fever, nightsweats, and hypoxia was recently discharged on 11/12/2024 from [facility] 8 for community-acquired pneumonia. Background includes atrial fibrillation [...] rest prior to this illness. He resides atan assisted living facility in [place] but receives specialty care here at [facility]. He presented to the emergency department on 11/17 with complaints of worsening shortness of breath,fevers, night sweats, and hypoxia. He was treated with ceftriaxone and doxycycline while in the hospital. He was compliant with his cefpodoxime and doxycycline which he was prescribed on 11/12 on dismissal for an additional 6 days (completed treatment on 11/17/2024). In the emergency department, vital signs included blood pressure 104/64, heart rate 86, respiratoryrate 20, oxygen saturation 94% on 2 L nasal cannula, and temperature 37.1?? C your laboratory investigations revealed hemoglobin 11.2, hematocrit 34.3, platelets 267, leukocytes 13.6 with neutrophilic predominance. Metabolic panel revealed sodium 133, potassium 4.1, chloride 94, bicarb 26, anion gap 13, BUN 27, creatinine 1.20, EGFR 88, total calcium 8.7, glucose 135. Lactate 1.8. Chest x-ray (11/16/2024) revealed bilateral interstitial and alveolar opacities and bibasilar region and increasinghazy opacities in right mid lung, with trace bilateral pleural effusions and enlarged cardiac silhou ette. In the ER, blood cultures x2 were collected, 500 mL bolus was provided, and empirical antibiotics (vancomycin and cefepime were ordered, in light of possible healthcare associated pneumonia, and failure of outpatient antibiotics, and DuoNebs and steroids were also provided). [facility] Meds, allergies, medical, surgical, social & family histories have been reviewed & updated as necessary. Current Outpatient Medications on File Prior to Encounter: Xarelto 20 mg tablet, Take 20 mg by mouth daily., 11/16/2024 acetaminophen (TylenoL) 500 mg tablet, Take 500 mg by mouth every 6 (six) hours as needed for pain or fever. albuterol (PROVENTIL HFA,VENTOLIN HFA) 90 mcg/actuation inhaler, [...] 0.25 mg 2 (two) times a day. cefpodoxime (Vantin) 200 mg tablet, Take 1 tablet (200 mg total) by mouth 2 (two) times a day for 5days. . cholecalciferol (VITAMIN D3) 25 mcg (1,000 Unit) [...] mg by mouth every morning before breakfast. polyethylene glycol (Miralax) 17 gram powder packet, Take 1 packet by mouth daily as needed for constipation. Dissolve each 17 g dose in 240 mLs (8 ounces) of beverage. potassium chloride (KLOR-CON M) 10 mEq ER tablet, Take 20 mEq by mouth 2 (two) times a day with meals. sennosides-docusate sodium (Senokot-S) 8.6-50 mg per tablet, Take 1 tablet by mouth daily. sertraline (ZOLOFT) 50 mg tablet, Take 50 mg by mouth daily. torsemide (DEMADEX) 20 mg tablet, take 2 tablets by mouth daily. OBJECTIVE VITAL SIGNS Temperature: [36.9 ??C-37.3 ??C] 37.1 ??C Heart Rate: [73-80] 80 Resp Rate: [16-33] 33 Blood Pressure: (104-134)/(52-64) 127/60 SpO2: [90 %-100 %] 93 % Flow Rate (L/min): [2 L/min] 2 L/min Weight: [88.9 kg] 88.9 kg Pulse Rate: [72-86] 79 PHYSICAL EXAMINATION Vital Signs: Reviewed. Weight/BMI: Reviewed. General: No acute distress. Appears short of breath and conversationally dyspneic. On 2.5 L nasal cannula. Psychiatry: Alert and oriented. Normal mood and affect. HEENT: Normocephalic, atraumatic; External ears are normal. MMM. Neck: Supple Cardiovascular: Regular rate and rhythm. JVD present. Lungs: Symmetrical chest wall expansion, faint expiratory wheezing in right mid lung and right lower lung field. Bibasilar crackles. 2+ pitting edema in bilateral lower extremities. Abdominal: Soft, nontender, nondistended. Skin: Warm and well perfused. Extremities: No clubbing or cyanosis noted. 2+ pitting edema in bilateral lower extremities. Neurological: Alert on examination. No focal deficits noted. DIAGNOSTICS I have independently reviewed vital signs, labs, diagnostics, radiology ASSESSMENT / PLAN Marcos Perez is a 89 y.o. male who presents with acute dyspnea, and noted to be hypoxic with bilateral pulmonary opacities with concern for healthcare associated pneumonia. He was recently discharged on 11/12/2024 from [place] [address] for community-acquired pneumonia. There was also a concern for possible acute decompensated HFpEF. Background includes atrial fibrillation on anticoagulation, obstructive [...] rest prior to this illness. He resides ata assisted living facility in [place] but receives specialty care here at [facility]. 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 He presented to the ED on 11/17 with complaints of worsening shortness of breath, fevers, night sweats, and hypoxia. He was treated with ceftriaxone and doxycycline while in the hospital. He was compliant with his cefpodoxime and doxycycline. In the emergency department, vital signs included blood pressure 104/64, heart rate 86, respiratoryrate 20, oxygen saturation 94% on 2 L nasal cannula, and temperature 37.1?? C your laboratory investigations revealed hemoglobin 11.2, hematocrit 34.3, platelets 267, leukocytes 13.6 with neutrophilic predominance. Metabolic panel revealed sodium 133, potassium 4.1, chloride 94, bicarb 26, anion gap 13, BUN 27, creatinine 1.20, EGFR 88, total calcium 8.7, glucose 135. BNP 985. Lactate 1.8. Chest x-ray (11/16/2024) revealed bilateral interstitial and alveolar opacities and bibasilar region and increasing hazy opacities in right mid lung, with trace bilateral pleural effusions and enlarged cardiac silhouette. In the ER, blood cultures x 2 were collected, 500 mL bolus was provided, and empirical antibiotics (vancomycin and cefepime were ordered, in light of possible healthcare associated pneumonia, and failure of outpatient antibiotics, and DuoNebs and steroids were also provided). He is admitted to Medicine 5 for further management. Plan: Regarding HAP with sepsis Investigations: Blood cultures x 2: pending Pneumonia panel: pending MRSA swab: pending Lactate: Normal Not producing any sputum for sputum cultures Monitor oxygenation Therapeutics Antibiotics: Vancomycin and cefepime (started 11/17/2024) Intravenous fluids: HOLDING in light of volume overloaded status Continue home DuoNebs 4 times daily p.r.n. Oxygen therapy (2.5 L at rest), weaned down as able Consultations: Infectious disease, appreciate recommendations regarding further diagnostic workup and antimicrobial recommendations Regarding HFpEF exacerbation, likely infection-related Investigations: Transthoracic echocardiogram Monitor electrolytes, in light of diuresis Monitor weights, daily Monitor in and outs, every 8 hours Therapeutics: Diuresis: Lasix 60 mg IV, with likely need for IV diuresis tomorrow as well Cardiac diet Consider cardiology consultation, depending on hospital course Continue Xarelto Continue Breo Ellipta, Pulmicort, DuoNebs, Singulair Continue CPAP at night Holding any further dose of steroids (administered in the ER), we will monitor Physical therapy and occupational therapy Chronic comorbidities Mild CAD, status post coronary catheterizations on April 23, 2023 History of complete heart block 1998 status post pacemaker GERD, continue proton pump inhibitor Home medications: Home medications held: Cefpodoxime, doxycycline, dupilumab Home medications continued: Tylenol, albuterol, Tessalon, bisacodyl, budesonide, vitamin D3, ferrous sulfate, finasteride, DuoNebs, loperamide, magnesium hydroxide, multivitamin, nitroglycerin, omeprazole, MiraLax, potassium chloride, rivaroxaban, Senokot, sertraline, DIET: No diet orders on file TUBES/LINES: Lines, Drains, and Wounds Peripheral IV Duration Peripheral IV 11/17/24 18 G Left Antecubital 1h VTE PROPHYLAXIS: Xarelto CODE STATUS: DNR DNI BASELINE MOBILITY: BMAT 4 DISPOSITION: Unclear I personally spent a total of 75 minutes providing and coordinating care today. Electronically signed by: Jenniffer Villagomez, B.Ch., B.A.O. 11/17/24 9:50 AM CDT documented in this encounter Consult Notes * Jae Busby M.B.B.S. - 11/19/2024 3:48 PM CDTAssociated Order(s): IP CONSULT TO PULMONARY MEDICINE Pulmonary Service Consult Note REFERRAL SOURCE [facility] Medicine 5 ([facility]) REASON FOR CONSULT New requirement for supplemental oxygen at rest in a patient who is normally not oxygen-dependent at rest HPI Mr. 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 During that admission, he was treated with ceftriaxone and doxycycline and discharged in stable condition on his baseline oxygen regimen of 2 L NC at night and with exertion. Prior to that hospitalization, he had completed a five-day course of systemic steroids, but no corticosteroids were administered during the most recent admission. He re-presented to the hospital on November 17, 2024, with complaints of shortnessof breath, low-grade fevers, and night sweats. Infectious workup, including respiratory pathogen panel, influenza, and COVID-19 testing, has been negative. CT chest demonstrates bilateral upper-lobe predominant ground-glass opacities, compatible with a possible infectious or inflammatory process. He is currently being treated empirically for hospital-acquired pneumonia (HAP) with cefepime and remains on supplemental oxygen. On examination today, the patient is resting comfortably on room air. Oxygen was weaned off during evaluation, and he maintained saturations between 93 and 97 percent. His pulmonary exam is notable only for end-expiratory wheezing without rales or rhonchi. He continues to endorse mild dyspnea, but this is not associated with hypoxia. OBJECTIVE DATA CT Chest (11/18/24): Bilateral upper-lobe ground-glass opacities consistent with possible pneumonia;no effusion or significant progression from prior imaging. CXR: No focal consolidation; chronic interstitial changes. Respiratory Pathogen Panel: Negative. COVID-19, Influenza A/B: Negative. Labs: WBC 13 K/??L, Cr 1.2 mg/dL, BNP 300 ROS negative except as noted in the HPI. PMH Medical History[1] MEDICATIONS Current Medications[2] SOCIAL HISTORY Social History Socioeconomic History Marital status: Spouse name: Tiffani Number of children: 3 Years of education: Not on file Highest education level: GED or equivalent Occupational History Occupation: Retired Tobacco Use Smoking status: Former Current packs/day: 0.00 Average packs/day: 2.0 packs/day for 10.0 years (20.0 ttl pk-yrs) Types: Cigarettes Start date: 02/15/1956 Quit date: 02/14/1966 Years since quittin.8 Smokeless tobacco: Former Types: Chew Quit date: 02/14/1966 Vaping Use Vaping status: never used Substance and Sexual Activity Alcohol use: No Drug use: No Sexual activity: Never Other Topics Concern Not on file Social History Narrative Not on file Social Drivers of Health Food Insecurity: Patient Declined (11/17/2024) Hunger Vital Sign Worried About Running Out of Food in the Last Year: Patient declined Ran Out of Food in the Last Year: Patient declined Transportation Needs: Patient Declined (11/17/2024) PRAPARE - Transportation Lack of Transportation (Medical): Patient declined Lack of Transportation (Non-Medical): Patient declined Intimate Partner Violence: Patient Declined (11/17/2024) Humiliation, Afraid, Rape, and Kick questionnaire Fear of Current or Ex-Partner: Patient declined Emotionally Abused: Patient declined Physically Abused: Patient declined Sexually Abused: Patient declined Housing Stability: Low Risk (11/17/2024) Housing Stability Housing: Living Situation: I have a steady place to live FAMILY HISTORY Noncontributory VITAL SIGNS Vitals: 11/19/24 1344 BP: 136/62 Pulse: 83 Resp: 23 Temp: 36.8 ??C SpO2: 97% PHYSICAL EXAM Vitals reviewed. Constitutional General: He is not in acute distress. Cardiovascular Rate and Rhythm: Normal rate and regular rhythm. Pulses: Normal pulses. Heart sounds: Normal heart sounds. No murmur heard. Pulmonary Effort: Pulmonary effort is normal. Breath sounds: Wheezing present. No rhonchi or rales. Musculoskeletal Right lower leg: No edema. Left lower leg: No edema. Neurological Mental Status: He is alert. LABS Recent Results (from the past 24 hours) Respiratory Panel, PCR, Nasopharyngeal Collection Time: 11/18/24 5:39 PM Specimen: Nasopharynx; Swab Result Value Specimen Source NASOPHARYNGEAL SWAB Adenovirus Undetected Coronavirus 229E Undetected Coronavirus HKU1 Undetected Coronavirus NL63 Undetected Coronavirus OC43 Undetected SARS Coronavirus-2 Undetected Human Metapneumovirus Undetected Human Rhinovirus/ Enterovirus Undetected Influenza A Undetected Influenza B Undetected Parainfluenza Virus 1 Undetected Parainfluenza Virus 2 Undetected Parainfluenza Virus 3 Undetected Parainfluenza Virus 4 Undetected Respiratory Syncytial Virus, PCR Undetected Bordetella parapertussis Undetected Bordetella pertussis Undetected Chlamydia pneumoniae Undetected Mycoplasma pneumoniae Undetected Interpretation This assay is not predicted to detect SARS-coronavirus (CoV), or MERS-CoV. If SARS-CoV or MERS-CoV is suspected, coordinate testing through a local public health laboratory. Legionella Antigen, Urine Collection Time: 11/18/24 6:51 PM Specimen: Urine, Midstream Result Value Legionella Ag, U Negative Streptococcus pneumoniae Antigen, Urine Collection Time: 11/18/24 6:51 PM Specimen: Urine, Midstream Result Value Streptococcus pneumoniae Ag, U Negative CRP (C-Reactive Protein) Collection Time: 11/18/24 8:03 PM Result Value C-Reactive Protein (CRP), S 80.4 (H) CBC with Differential, Blood Collection Time: 11/18/24 8:05 PM Result Value Hemoglobin 10.8 (L) Hematocrit 32.9 (L) Erythrocytes 3.87 (L) MCV 85.0 RBC Distrib Width 13.6 Platelet Count 293 Leukocytes 15.0 (H) Neutrophils 13.02 (H) Lymphocytes 0.86 (L) Monocytes 1.01 (H) Eosinophils 0.11 Basophils 0.03 Renal Function Panel Collection Time: 11/18/24 8:05 PM Result Value Potassium, S 3.9 Sodium, S 136 Chloride, S 98 Bicarbonate, S 23 Anion Gap 15 BUN (Blood Urea Nitrogen), S 25 (H) Creatinine 1.05 Estimated GFR (eGFR) 68 Calcium, Total, S 8.8 Glucose, S 135 Albumin, S 3.2 (L) Phosphorus (Inorganic), S 3.0 PROBLEM LIST Hospital-acquired pneumonia (HAP), improving. New oxygen requirement at rest (resolved during evaluation). 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 HFpEF with possible mild volume overload. Chronic respiratory disease with baseline oxygen requirement on exertion and at night. DANAE on CPAP ASSESSMENT / PLAN Mr. Marcos Perez is a 89 y.o. male with a past medical history significant for eosinophilic asthma, HFpEF, and recent pneumonia who re- presented with dyspnea, low-grade fevers, and upper-lobe ground-glass opacities on CT imaging. His infectious workup has been negative, and he is currently receiving appropriate empiric therapy for hospital-acquired pneumonia with cefepime. Infectious workup has been negative. During the pulmonary evaluation, oxygen was successfully discontinued, and he maintained saturations between 93 - 97%, suggesting that his resting hypoxia has resolved. He remains mildly short of breath but without desaturation. Given his imaging and clinical course, we recommend completing a five-day course of cefepime for hospital-acquired pneumonia coverage. Additionally, initiate a short course of systemic corticosteroids for five to seven days to address reactive airway component and inflammation. Although he has required longer tapers in prior episodes, no prolonged taper appears necessary at this time. Suspect that patient will continued to have subjective shortness of breath for a few weeks given age and pneumonia but reassuringly, he has been maintaining his saturation. Additionally, he is not currently at his dry weight, so gentle volume optimization is advised. The patient should continue his baseline asthma regimen and follow closely in the asthma clinic with Dr. Talha Garcia after discharge. - Continue cefepime to complete a five-day total course for HAP coverage. Start systemic corticosteroids with prednisone 40 mg daily for 5-7 days - Continue home asthma therapy: Dupixent, Pulmicort, and Arnuity Ellipta (Prio) per outpatient regimen. - Optimize volume status; consider gentle diuresis as clinically indicated. - Encourage incentive spirometry and ambulation. - Arrange outpatient follow-up with Dr. Talha Garcia ([facility]) for reassessment after discharge. - Okay to discharge patient from Pulmonary standpoint Patient seen and discussed with supervising automotive consultant, Dr. Javed. Please refer to his supervisory note for further details. Thank you for the consult. We will continue to follow peripherally. Please page pulmonary consulting service with questions or concerns. Fermín LuaS. 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 alum-mag hydroxide-simeth 200-200-20 mg/5 mL suspension 30 mL (Maalox), 30 mL, oral, Q6H PRN, Alexander Garcia M.B., B.Ch., B.A.O. benzonatate capsule 200 mg (Tessalon Perles), 200 mg, oral, TID PRN, Alexander Garcia M.B., B.Ch., B.A.O. bisacodyL DR tablet 10 mg (Dulcolax), 10 mg, oral, Daily, Alexander Garcia M.B., B.Ch., B.A.O., 10 mg at 11/18/24 0900 budesonide 0.25 mg/2 mL nebulizer solution 0.25 mg (Pulmicort), 0.25 mg, nebulization, BID, Alexander Garcia M.B., B.Ch., B.A.O., 0.25 mg at 11/19/24 1018 cefepime in dextrose (iso osm) IVPB 2 g (Maxipime), 2 g, intravenous, Q24H, Alexander Garcia M.B., B.Ch., B.A.O., Last Rate: 200 mL/hr at 11/19/24 1012, 2 g at 11/19/24 1012 cholecalciferol (vitamin D3) tablet 25 mcg, 25 mcg, oral, Daily, Alexander Garcia M.B., B.Ch., B.A.O.,25 mcg at 11/19/24 1010 [START ON 11/21/2024] ferrous sulfate tablet 65 mg of iron, 65 mg of iron, oral, Every Other Day, Lilli Rosales Pharm.D., R.Ph. finasteride tablet 5 mg (Proscar), 5 mg, oral, Daily, Alexander Garcia M.B., B.Ch., B.A.O., 5 mg at 11/19/24 1011 fluticasone furoate-vilanteroL 100-25 mcg/actuation inhaler 1 puff (Breo Ellipta), 1 puff, inhalation, Daily, Alexander Garcia M.B., B.Ch., B.A.O., 1 puff at 11/19/24 1010 furosemide injection 60 mg (Lasix), 60 mg, intravenous, Q24H SEBASTIAN, Alexander Garcia M.B., B.Ch., B.A.O., 60 mg at 11/19/24 1010 ipratropium-albuteroL 0.5-2.5 mg/3 mL nebulizer solution 3 mL (DuoNeb), 3 mL, nebulization, 4x daily, Rosemarie Lee P.A.-C., 3 mL at 11/19/24 1531 loperamide capsule 2 mg (Imodium A-D), 2 mg, oral, TID PRN, Alexander Garcia M.B., B.Ch., B.A.O. magnesium hydroxide suspension 30 mL (Milk of Magnesia), 30 mL, oral, At bedtime PRN, Alexander Garcia M.B., B.Ch., B.A.O. montelukast tablet 10 mg (Singulair), 10 mg, oral, Daily at bedtime, Alexander Garcia M.B., B.Ch., B.A.O., 10 mg at 11/18/242019 bhkxeomnxfps-syxg-CX-Ca-minerals 400 mcg (folic acid) tablet 1 tablet, 1 tablet, oral, Daily, Alexander Garcia M.B., B.Ch., B.A.O., 1 tablet at 11/19/24 1010 nitroglycerin SL tablet 0.4 mg (Nitrostat), 0.4 mg, sublingual, Q5 Min PRN, Alexander Garcia M.B., B.Ch., B.A.O. pantoprazole DR tablet 40 mg (Protonix), 40 mg, oral, Daily before morning meal, Alexander Garcia M.B., B.Ch., B.A.O., 40 mg at 11/19/24 0624 polyethylene glycol powder packet 1 packet (Miralax), 1 packet, oral, Daily PRN, Alexander Garcia M.B., B.Ch., B.A.O. potassium chloride ER tablet 20 mEq, 20 mEq, oral, BID with meals, Alexander Garcia M.B., B.Ch., B.A.O., 20 mEq at 11/19/24 1009 predniSONE tablet 40 mg (Deltasone), 40 mg, oral, Daily, Rosemarie Lee, P.A.-C. rivaroxaban tablet 20 mg (Xarelto), 20 mg, oral, Daily with evening meal, Delia Parr, Pharm.D., R.Ph., BCPS, 20 mg at 11/18/24 1721 sennosides-docusate sodium 8.6-50 mg per tablet 1 tablet (Senokot-S), 1 tablet, oral, Daily, Alexander Garcia M.B., B.Ch., B.A.O., 1 tablet at 11/19/24 1010 sertraline tablet 50 mg (Zoloft), 50 mg, oral, Daily, Alexander Garcia M.B., B.Ch., B.A.O., 50 mg at 11/19/24 1010 sodium chloride 0.9 % inhalation solution 3 mL, 3 mL, nebulization, 4x daily, Rosemarie Lee, P.A.-C., 3 mL at 11/19/24 1531 torsemide tablet 60 mg (Demadex), 60 mg, oral, Daily, Rosemarie Lee, P.A.-C., 60 mg at 11/19/24 1531 Cosigned by Jacky Javed M.D. at 11/19/2024 4:01 PM CDT Associated attestation - Jacky Javed M.D. - 11/19/2024 4:01 PM CDT I have interviewed and examined 89-year-old Mr. Perez was recently dismissed from hospital, started to note shortness breath immediately the following day, and is readmitted with worsening shortness of breath and hypoxemia, night sweats but no fever, a mainly nonproductive cough, some wheezing, and a chest into scan that shows especially upper lobe, bilateral but somewhat more on the right side, ground-glass abnormalities. He can not tell any improvement since hospitalization 3 days ago but his resting oxygen saturation is now 93-96% on room air. I agree with Dr. Busby's plan to have him complete his current antibiotic therapy, cefepime on a presumption of healthcare associated pneumonia, but also add a short course prednisone, 40 mg daily for 5 days, but at the patient's request give him another 3-5 days' supply so that he can continue this if he does not feel back to his baseline level of functioning with just 5 days. He will continueon his other medications, including Dupixent, and already follows in Pulmonary Medicine as an outpatient. * Nydia Jasso, Rakel - 11/19/2024 2:22 PM CDTAssociated Order(s): IP CONSULT TO CARE MANAGEMENT; IP CONSULT TO CARE MANAGEMENT; IP CONSULT TO CARE MANAGEMENT Discharge Planning Assessment SUBJECTIVE Assessment Information Referral Data Referral Source: Early Screen for Discharge Planning Referral Reason: Discharge Planning Discharge Planning: Assisted living, Oxygen Previous Assessment: No Manager Home Services Used: No Primary Language: Egyptian Manager Home Services Used: No Person(s) Present During Interview: patient History of Present Illness #1 Atrial Fibrillation Paroxysmal (HCC) #2 Chronic Respiratory Failure (HCC) #3 Acute Diastolic (Congestive) Heart Failure (HCC) #4 Shortness Of Breath #5 Eosinophilic Asthma (HCC) Social History Family / Household: lives alone Support System: children Social Drivers of Health with Concerns No concerns present OBJECTIVE Finance/Insurance Primary insurance: MEDICARE A AND B Secondary insurance: Reverse Medical benefits: No Advance Directives Legal Decision Maker: Self Advance Directives: POLST/POST Advance Directives Status: Not Activated Baseline Functional Status Baseline Activities of Daily Living Mobility: Independent, Requires aide of device Dressing: Independent Feeding: Independent Bathing: Needs assistance Grooming: Independent Toileting: Independent Behavior: Appropriate, Pleasant, Calm, Cooperative, Oriented Communication: Appropriate to age/development Shopping: Dependent Medication Management: Dependent Housekeeping: Needs assistance Meal Prep: Dependent Assistive Devices: BiPAP/CPAP/VPAP, Cellphone, Eyeglasses, Walker - four wheeled, Oxygen, Other (Comment), Scooter, Grab bars - toilet Transportation: Support from family Managing Finances: Needs assistance Baseline Services/Resources Primary care clinic and provider: Patient Care Team Relationship Specialty Notifications Start Angel Johnston M.D. External Primary Care Physician Family Medicine 11/17/24 Address: [address] [place] [id number] Additional Resources: Additional Services: NA Anticipated Needs Functional Status: Transportation use (drive car, use taxi/bus), Meal preparation, Medication set-up/administration, Housekeeping Assistive Devices: None Anticipated Modifications to the Patient's Home: None Transportation Needs: Support from family Does the patient need discharge transport arranged?: No Anticipated Discharge Destination: [facility] or [facility]mediate Care Facility Referrals Initiated: Destination - Admitted Since 11/16/2024 Service Provider Request Status Services Address Phone Fax Patient Preferred [facility] Pending - [facility] [address] [facility] [phone] -- grab driver provided Discharge Planning Guide ([id number]), information regarding the dismissal process, and the Senior Linkage Line ([place] Board on Aging) handout. ASSESSMENT / PLAN ASSESSMENT: The grab driver met with Marcos Perez to discuss his current hospitalization and homegoing needs. The patient was unaccompanied. The patient was a reliable historian. The role of grab driver was reviewed. The patient reviewed his prior level of care and support system. The patient receives support from his children. Marcos resides alone in a assisted living facility with level entry. Housekeeping, grocery shopping, meal prep, and other household responsibilities have previously been completed by patient, patient's family, and facility staff. The patient confirms that he resides in an assisted living facility. He was primarily independent with mobility with the use of either his walker or his motorized scooter. The patient receives 3 meals a day, medication management, and bathing assistance twice a week at the facility. The patient anticipates returning to his assisted living once medically stable. He shares that his daughter or one of his two sons will provide transportation. - At this time, the care team anticipates the patient requires the following service(s) to be reconnected: oxygen and assisted living facility. The patient identified the following as their current vendor(s): [employer] (oxygen) and [facility]. The patient's potential needs at dismissal based on their home setting, previous needs and responsibilities, homebound status, and relevant assessments were discussed. The patient will be safe and supported to discharge to [facility] HOME pending reconnect when medically ready. Support will be provided by patient's family and facility staff. grab driver recommendations include: discussing needed assistance with family, friends, or neighbors . Pending hospital course and medical readiness, no barriers to dismissal have been identified at this time. The following hospital-based consult orders and/or referrals placed or requested: None. PLAN: The patient agrees with the following plan. Patient's Anticipated Discharge Destination: [facility] or [facility]mediate Care Facility (pending clinical hospital course)- pending reconnects to oxygen and assisted living Transportation upon dismissal will be provided by family--daughter or one of his sons. grab driver encouraged the patient to reach out with any questions/concerns. Care Management will continue to assess for homegoing needs with the interdisciplinary team. Signed by: Georgie Jasso R.N. 11/19/2024 * Lola Crowell - 11/19/2024 1:33 PM CDT Occupational Therapy Acute Hospital Inpatient Evaluation/Treatment SUBJECTIVE Patient's Name: Marcos Perez Referring/Attending Provider: Gerard Cook M.D. Reason for Referral: Occupational Therapy Evaluation and Treatment Onset Date: 11/16/2024 PERTINENT MEDICAL / SURGICAL HISTORY: Medical History[1] Surgical History[2] History of Present Illness: Marcos Perez is a 89 y.o. male who was admitted to [facility] in [place] on 11/16/2024 for Pneumonia Community Acquired [J18.9] Shortness Of Breath [R06.02]. Relevant Medical History: Patient admitted for shortness of breath, after previously discharging 2 wks ago for pneumonia. Uses 2L O2 nasal cannula at baseline. Precautions Other Precautions: SOB during ambulation Falls screen: Fall in the last 12 months: No Did you have an injury with the fall: No Are you fearful of falling: Yes, cautious of falling Pain Assessment: Pain Ratin/10 on a 0-10 point scale Patient/Caregiver Goals: To discharge with skilled rehab Return to highest level of function Subjective Comments: Agreeable to therapy session. Home Living and Equipment: Lives With: Other (Comment), Spouse Receives Help From: Family, Facility staff Type of Home: senior care facility Home Layout: One level, Able to live on main level with bedroom/bathroom Bathroom Shower/Tub: Other (Comment) (Reports bathing in whirlpool tub) Bathroom Toilet: Comfort height Bathroom Accessibility: Yes How Accessible: Accessible via walker, Accessible via wheelchair Gait Devices Owned: Front-wheeled walker, Four-wheeled walker, Cane Bathroom Equipment: Grab bars around toilet Prior Level of Function and Mobility: ADL Assistance: Required assistance ADL Assistance Comments: Requires assistance for bathing - whirlpool bath 2x wk IADL/Homemaking Assistance: Required assistance Driving: Does not drive Level of [place]: Modified independent Gait Devices/Wheelchair Used: Four wheeled walker Gait Devices/Wheelchair Used Comments: owns a front wheeled walker, but has started primarily usingthe four wheeled walker as it feels most stable Dominant Hand: Right 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 Baseline Vision/Correction: Macular Degeneration; glasses present, but reports not liking to wear glasses SENSATION/PERCEPTION: L hand sensation impairment due to previous shoulder injury DOMINANT HAND: Right Outcome Measures: AM-PAC Inpatient Short Form: Putting on and taking off regular lower body clothing?: A Little Putting on and taking off regular upper body clothing?: None Taking care of personal grooming such as brushing teeth?: None Bathing (including washing, rinsing, drying)?: A lot Toileting, which includes using toilet, bedpan, or urinal?: A Little Eating meals?: None Daily Activities Raw Score (max 24): 20 Daily Activities Standardized Score: 42.03 Interpretation: Based on scoring guidelines using the raw score value: Those going to home had an average score at or above 18 Those going to facility had an average score at or below 17 Clinicians answer the AM-PAC Inpatient Short Form based on observed patient activity and/or clinical judgment (patient can be scored without physically performing each activity). The AM-PAC is one ofmany factors to consider when discharge planning. Cognition: No observable concerns with cognition at this time Will further assess and monitor as warranted - Alert and oriented throughout session Therapeutic Interventions: ACTIVITIES OF DAILY LIVING: GROOMING - Assist Level: supervision/set-up - Patient Location: chair - Activity: washing face - Therapist Delivery: assessed - Assist/Cues Provided: none FEEDING - Assist Level: independent - Patient Location: chair - Activity: open containers, bring food to mouth, bring drink to mouth - Therapist Delivery: assessed - Assist/Cues Provided: none FUNCTIONAL TRANSFERS: SIT TO STAND - Assist Level: stand by assist - Device: front wheeled walker and gait belt - Surface: chair - Therapist Delivery: assessed, educated - Assist/Cues Provided: verbal for sequencing, proper hand placement, safety - Initial cues provided for hand placement, patient adhered well after initial verbal cueing. Education/Training Provided: - Role of OT in acute setting - Energy conservation techniques - Safe transfer techniques Team Communication: The patient's status was discussed and coordination of care occurred with RN Patient was left with nursing/SOCIAL GROUP WORKER at end of session with call light in reach, all needs met and questions answered. Assessment Discharge Therapy Needs - OT: Ongoing skilled occupational therapy If skilled therapy is recommended, skilled therapy can include occupational therapy provided in home health, outpatient or post-acute facility. The location of these services is determined by patient's care team in partnership with patient/family. Level of Care Needed - OT: Assistance with toilet/shower transfers, Assistance with meal preparation, Assistance with transportation, Assistance with housekeeping, Assistance with shopping, Assistance with dressing, Assistance with toileting Barriers to Discharge Home: Current functional status, Fall risk Clinical Impression: Currently, patient presents with impairments including decreased strength and decreased activity tolerance resulting in functional deficits including impaired functional mobility and decreased independence with self care tasks. Based on performance today, patient has good potential to complete acute care goals. Patient was motivated to complete session. At baseline, patient lives in an NURSING HOME and receives help with mobility as needed for I/ADLs. He will require assistance from a functional caregiver at anticipated discharge to SNF. Patient is currently functioning below baseline and further skilled occupational therapy is necessary to increase participation in I/ADLs. The patient will benefit from ongoing occupational therapy services while hospitalized in order to improve engagement and independence in meaningful occupations. In-Hospital Activity and Mobility Recommendations: - Transfer into chair 3x/day with stand by assistance. - Ambulate to bathroom for toileting - Eat ALL meals in chair - Active engagement in daily self-care routine (oral cares, face washing, combing hair) Plan OT Plan Comments: Next Session: Complete toileting transfer w pericares + clothing management Functional Goals: OT Goal #1: Patient will verbalize energy conservation/activity modification strategies independently prior to discharge. OT Goal #1 Status: Ongoing OT Goal #2: Patient will complete toilet transfer, including clothing management pericares with modified independence prior to discharge. OT Goal #2 Status: Ongoing OT Goal #3: Patient will complete total body dressing with modified independence prior to discharge. OT Goal #3 Status: Ongoing OT Goal #4: Shaista will ambulate household or community distances with stand by assistance to complete I/ADL prior to discharge. OT Goal #4 Status: Ongoing Progress: Progressing toward goals Rehab potential: Mr. Perez has good potential to achieve established occupational therapy goals within the time frame outlined below. OT Frequency: OT Amount: 1 visit per day OT Frequency: 5 times per week OT Inpatient Duration : Until goals are met or hospital discharge Requires Inpatient OT Follow-Up: Yes OT - Next Inpatient Appointment: 11/20/24 Plan: Plan of care initiated Treatment interventions may include: Treatment Interventions: Therapeutic functional activity, Therapeutic exercise, Self-care/home management Occupational Therapy Attestation Statement: Patient agrees with the plan of care and goals. Billing: Tiered OT Evaluation Codes: Comorbid Conditions: Cardiopulmonary disease, Renal disease, Mental health disorder, Obesity Personal Factors: Age, Hearing impairment, Needs assistive device, Sedentary lifestyle, History of falls Occupational Profile and History review: Expanded Performance Deficits: 1 - 3 performance deficits Evaluation Complexity: Moderate Time Spent with Patient Evaluations OT Eval - Mod Complexity: 15 min Therapeutic Interventions Home Management Training (min): 13 min Time Tracking Total Timed Units (min): 13 min Total Treatment Time (min): 28 min Lola Crowell [1] Past Medical History: Diagnosis Date Anxiety [...] 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 [2] Past Surgical History: Procedure Laterality Date APPENDECTOMY 1957 or 1958 CATH ANGIOGRAM N/A 09/25/2018 Procedure: Coronary Angiography; Surgeon: Estrada Christian M.D., Ph.D.; Location: [facility] CATH ANGIOGRAM N/A 05/13/2023 Procedure: Coronary Angiography; Surgeon: Bari Johnson M.D.; Location: [facility] CATH ANGIOGRAM N/A 05/13/2023 Procedure: Left Heart Catheterization; Surgeon: Bari Johnson M.D.; Location: [facility] CATH PACEMAKER Left 05/30/2023 Procedure: PPM Generator Change - Dual Chamber; Surgeon: Sidney Bartlett M.D.; Location: [facility] EYE SURGERY bilateral cateract surgery HERNIA REPAIR JOINT REPLACEMENT PACEMAKER OPERATIVE PROSTATE SURGERY TURP TONSILLECTOMY VASECTOMY Cosigned by Palmira Rosales O.T., O.TSilvino at 11/19/2024 4:27 PM CDT Associated attestation - Palmira Rosales O.T., O.T.D. - 11/19/2024 4:27 PM CDT This therapist has reviewed all documentation and supervised today???s session. The therapist agrees with the plan developed in collaboration with the patient. * Rosemarie Sandoval P.T., D.P.T. - 11/19/2024 9:37 AM CDT Physical Therapy Inpatient Evaluation/Treatment SUBJECTIVE Patient's Name: Marcos Perez Referring/Attending Provider: Gerard Cook M.D. Reason for Referral: Physical Therapy Evaluate and Treat Onset Date: 11/16/2024 Pertinent Medical / Surgical History: Medical History[1] Surgical History[2] History of Present Illness: Marcos Perez is a 89 y.o. male who was admitted to [facility] in [place] on 11/16/2024 for Pneumonia Community Acquired [J18.9] Shortness Of Breath [R06.02]. Relevant Medical History: shortness of breath, depressive disorder, VT, pneumonia, A-fib Precautions Other Precautions: SOB during ambulation RST PT/OT Falls screen: Fall in the last 12 months: No Did you have an injury with the fall: No Are you fearful of falling: Yes, somewhat scared of falling, cautious Pain Assessment: Pain not reported during session. Patient/Caregiver Goals: Return to home and Return to prior level of function Subjective Comments: Agreeable to therapy session. Home Living and Equipment: Lives with: Alone, lives next door at NUR[facility] HOME Receives help from: Facility Staff Type of Home: Assisted Living Facility Home Layout: One Level Home Access: Level entry Bathroom Accessibility: Accessible via walker, Accessible via wheelchair Shower: Walk-in Shower Level: Main Floor Enclosure Type: gets Bath Tuesdays and Fridays from staff at facility Bathroom Equipment: Grab bars in shower, Hand-held shower head, Shower chair with back Toilet: Comfort Toilet Level: Main Floor Toilet Equipment: Grab bar(s) at toilet Assistive Device Owned: Four wheeled walker, Single point cane, Scooter Adaptive Equipment Owned: None Other DME Owned: Lift chair, Adjustable bed, Home Oxygen, 2 L via [place] Home Living Comments: gets help from NURSING HOME as needed Prior Level of Function and Mobility: Basic Activities of Daily Living: Modified Independent Instrumental Activities of Daily Living: Required Assistance Help with showering, able to get dressed independently Functional Mobility: Modified Independent Driving: No 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, 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 Leisure Interests: fishing, card games, bingo, painting at [facility]UR[facility] HOME, chatting with friends at [facility]UR[facility] HOME, go outside with [employer]ooter during nice weather OBJECTIVE Vital Signs: Vitals taken during session: O2 saturation: 89-94% and O2 flow: 1 L/min nasal cannula and 2 L/min nasal cannula Evaluation Assessments: Strength: Generalized weakness Range of Motion:Upper extremities within functional limits Lower extremities within functional limits Balance: Static Sitting: Good (Maintains balance without support) Dynamic Sitting: Good (Maintains balance without support) Static Standing: Fair (Maintains balance with handheld assist) Dynamic Standing: Fair (Maintains balance with handheld assist) Activity Tolerance: Endurance: Tolerates 20-30 minutes of activity Cognition: Alert, Oriented x 4 Outcome Measures: AM-PAC Inpatient Short Form: AM-PAC Basic Mobility (V.2) How much help from another person do you currently need???If the patient hasn't done an activity recently, how much help from another person do you think he/she would needif he/she tried? 1. Turning from your back to your side while in a flat bed without using bedrails?: None 2. Moving from lying on your back to sitting on the side of a flat bed without using bedrails?: None 3. Moving to and from a bed to a chair (including a wheelchair)?: A Little 4. Standing up from a chair using your arms (e.g., wheelchair, or bedside chair)?: A Little 5. To walk in hospital room?: A Little 6. Climbing 3-5 steps with a railing?: A Lot AM-PAC Basic Mobility (V.2) Raw Score: 19 AM-PAC Basic Mobility (V.2) Standardized Score: 42.48 Interpretation: Based on scoring guidelines using the raw score value: Those going to home had an average score at or above 18 Those going to facility had an average score at or below 17 Clinicians answer the AM-PAC Inpatient Short Form based on observed patient activity and/or clinical judgement (patient can be scored without physically performing each activity). The AM-PAC is one of many factors to consider when discharge planning. Therapeutic Interventions: SUPINE TO SIT: - Assist Level: modified independent - Device: head of bed elevated and bedrail - Therapist Delivery: assessed, facilitated, and instructed - Assist/Cues Provided: verbal for completion of transfer SIT <> STAND: - Assist Level: stand by assist of 1 - Device: gait belt and front wheeled walker - Surface: bed and toilet - Therapist Delivery: assessed, facilitated, and instructed - Assist/Cues Provided: verbal for anterior weight shift, safety, sequencing, technique, upper extremity placement, and upright posture - Comments: slow to rise and effortful but able to perform under own power with safe hand placement GAIT: - Distance: 200 feet - Assist Level:stand by assist of 1 - Device: gait belt and front wheeled walker - Quality: decreased gait speed, decreased heel strike, decreased step height, decreased step length, decreased toe off, downward gaze, guarded - Therapist Delivery: assessed, facilitated, and instructed - Assist/Cues Provided:verbal for breathing techniques, forward gaze, pacing, upright posture, and walker navigation - Comments: some SOB throughout, overall steady THERAPEUTIC ACTIVITY: Discussed mobility status, breathing techniques, plan of care and discharge plans EDUCATION: -Role of PT in acute setting and collaborated with patient and/or family on goals and plan of care. -Diaphragmatic breathing -Fall prevention -Home safety The patient's status was discussed and the following coordination of care occurred with the RN Patient was left on the toilet, with nursing staff at end of session with call light in reach, all needs met and questions answered. Assessment Discharge Therapy Needs - PT: Ongoing skilled physical therapy If skilled therapy is recommended, skilled therapy can include physical therapy provided by home health, outpatient clinic, or a post-acute facility. The location of these services is determined by the patient's care team in partnership with patient/family. Level of Care Needed - PT: Assistance with transfers (Comment), Assistance with walking and moving around the home, Physical assistance needed Barriers to Discharge Home: Current functional status, Fall risk Equipment Recommended - PT: Front-wheeled walker From a physical therapy perspective, the level of care above has been recommended for Mr. Perez after hospital discharge. This level of care is based on his functional abilities during today's session. This may change throughout the hospital course and will be updated as appropriate. Clinical Impression: Currently, patient presents with decreased strength, impaired dynamic balance, decreased activity tolerance, and cardiopulmonary impairments resulting in the following impaired transfers, impaired gait, and impaired ability to complete ADLs. Patient demonstrates good tolerance to today's PT session. At baseline, patient lives in an NURSING HOME and receives help with mobility as needed. Patient performed bed mobility with mod I with use of bed features. Patient performed STS transfer with SBA and FWW, slow to rise but able to perform under own power. Patient ambulated 200 ft with SBA and FWW, some shortness of breath present on 2 L via NC throughout ambulation, overall steady. Patient is appropriatefor continued inpatient PT and will be followed through remainder of hospital stay to progress functional mobility for safe discharge home. Physical therapy treatment is medically necessary to restore and maximize function, maximize safetyand facilitate discharge to home, teach and educate the patient and/or caregivers. Recommendations for mobility/activity while hospitalized: chair 3x/day with stand by assist (2 hours max in chair at a time) gait 5x/day with stand by assist lower extremity exercises 3x/day Plan PT Plan Comments: progress ambulation tolerance with less SOB, establish formal HEP Functional Goals: PT Inpatient Goals PT Goal #1: Patient will be able to perform sit to stand transfer with mod I and FWW in order to progress functional mobility to PLOF. PT Goal #1 Status: Progressing PT Goal #2: Patient will be able to perform bed mobility independently in order to progress functional mobility to PLOF. PT Goal #2 Status: Progressing PT Goal #3: Patient will be able to ambulate 100 ft with mod I and FWW in order to progress functional mobility for safety upon discharge. PT Goal #3 Status: Progressing PT Goal #4: Patient will be able to perform HEP independently in order to promote functional strength needed for discharge. PT Goal #4 Status: Ongoing Progress: Progressing toward goals Marcos Perez has Good rehab potential to meet the expected outcomes in a reasonable period of time. Treatment Plan: Plan: Plan of care initiated PT Amount: 1 visit per day PT Frequency: 5 times per week PT Inpatient Duration : Until goals are met or hospital discharge Requires Inpatient Follow-Up: Yes PT - Next Inpatient Appointment: 11/20/24 Patient agrees with the plan of care and goals. Treatment interventions may include: Treatment/Interventions: Therapeutic exercise, Therapeutic functional activity, Neuromuscular re-education, Gait training, Self-care/home management Billing: Tiered PT Evaluation Codes: Comorbid Conditions: Cardiopulmonary disease, Renal disease, Mental health disorder, Obesity Personal Factors: Age, Hearing impairment, Needs assistive device, Sedentary lifestyle, History of falls Examination elements: 3 Clinical Presentation: Evolving Clinical Decision Making: Moderate complexity clinical decision making Time Spent with Patient Evaluations PT Eval - Mod Complexity: 10 min Therapeutic Interventions Gait Training (min): 10 min Therapeutic Activity (min): 11 min Time Tracking Total Timed Units (min): 21 min Total Treatment Time (min): 31 min Rosemarie Sandoval P.T., D.P.T. [1] Past Medical History: Diagnosis Date Anxiety [...] 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 [2] Past Surgical History: Procedure Laterality Date APPENDECTOMY 1957 or 1958 CATH ANGIOGRAM N/A 09/25/2018 Procedure: Coronary Angiography; Surgeon: Estrada Christian M.D., Ph.D.; Location: [facility] CATH ANGIOGRAM N/A 05/13/2023 Procedure: Coronary Angiography; Surgeon: Bari Johnson M.D.; Location: [facility] CATH ANGIOGRAM N/A 05/13/2023 Procedure: Left Heart Catheterization; Surgeon: Bari Johnson M.D.; Location: [facility] CATH PACEMAKER Left 05/30/2023 Procedure: PPM Generator Change - Dual Chamber; Surgeon: Sidney Bartlett M.D.; Location: [facility] EYE SURGERY bilateral cateract surgery HERNIA REPAIR JOINT REPLACEMENT PACEMAKER OPERATIVE PROSTATE SURGERY TURP TONSILLECTOMY VASECTOMY * Juju Mahoney M.D. - 11/18/2024 7:18 AM CDTAssociated Order(s): IP CONSULT TO INFECTIOUS DISEASES Infectious Diseases [facility] Service CONSULT NOTE SUBJECTIVE CHIEF COMPLAINT/REASON FOR CONSULT We are seeing Mr. Perez at the request of Fred Leon M.D. to give further recommendations for evaluation and management of healthcare associated pneumonia. HISTORY OF PRESENT ILLNESS Marcos Perez is a 89 y.o. male with a past medical history of atrial fibrillation on anticoagulation, DANAE, eosinophilic asthma, HLD, GERD, depression, prolonged QT syndrome, HFpEF (EF 53%),complete heart block (1998 s/p pacemaker), CAD, and NSTEMI (2018). The patient was recently admitted from 11/09/24 to 11/12/24 with community acquired pneumonia (cough,dyspnea, increased oxygen requirement). The patient was treated with ceftriaxone and doxycycline starting on 11/09/24, and this was transitioned to an oral regimen of cefpodoxime and doxycycline whichwas scheduled to be completed on 11/18/24. The patient presented to the ED on 11/17/24 with reported fevers, night sweats, and shortness of breath. He was afebrile and normotensive with a HR in the 70s to 80; he was on 2L NC, which has been his oxygen requirement since his last admission. Labs in the ED were notable for leukocytosis to 13.6,somewhat improved compared to labs at time of discharge. Chest x-ray was notable for increasing hazy opacities in the right midlung compared to his last x-ray from 11/09. He received vancomycin, cefepime, Duonebs, and steroids in the ED. He was admitted to Medicine 8, where there was concern for healthcare-associated pneumonia vs acute decompensated HFpEF. Two blood cultures were drawn, results o f which are pending. MRSA nares was negative. A pneumonia panel has been ordered but has not yet been completed. The patient was seen at bedside this morning. He reported that since his discharge he has not continued to improve as he expected to, and in fact feels his cough has worsened. His cough remains nonproductive. He additionally notes that his oxygen requirement increased slightly at home (on his portable tank, he had to increase his settings, but on his non-portable oxygen tank he remained at 2L). He did experience one episode of drenching night sweats about one week ago, and is unsure if he was febrile at the time. He denies additional fever. He does note that he was having worsened lower extremity edema prior to receiving Lasix this admission. REVIEW OF SYSTEMS As per HPI. OBJECTIVE VITAL SIGNS I have reviewed the current vital sign data as applicable. PHYSICAL EXAMINATION General: Alert, well appearing male in no acute distress CV: regular rate and rhythm without murmurs/rubs/gallops Pulm: breathing comfortably on 2 L NC; crackles noted bilaterally in the lung bases as well as throughout the posterior right lung ross Extremities: SCDs in place bilaterally; no significant lower extremity edema noted DIAGNOSTICS I have reviewed diagnostics as summarized above. ASSESSMENT / PLAN # Hospital-associated pneumonia vs HFpEF exacerbation # Recent community-acquired pneumonia Marcos Perez is a 89 y.o. male with recent admission for community- acquired pneumonia whopresents for continued vs worsening symptoms of cough, shortness of breath, and increased oxygen requirement concerning for a hospital- associated pneumonia. He has had worsening of right-sided opacities despite completing 9/10 days of antibiotics with atypical coverage. Given his recent hospital admission, he is at risk of having developed a hospital-associated pneumonia and should receive pseudomonal coverage. The patient reports symptomatic improvement today following diuresis and antibiotics; he remains on 2 L NC. While the patient may have pneumonia, a heart failure exacerbation in the setting of documented lower extremity edema at time of admission is of additional concern. If the patient continues to have significant clinical response and there is further evidence to support heart failure exacerbation as the cause of his symptoms, an abbreviated course of treatment with 3 days of c efepime could be considered. RECOMMENDATIONS: Continue cefepime for 3-5 days. If significant clinical improvement, can consider discontinuing cefepime at 3 days Please discontinue vancomycin as MRSA nares is negative Recommend obtaining CT chest w/o contrast to better assess right lung opacities Recommend inducing sputum in order to complete pneumonia panel Agree with obtaining TTE to assess for possible HFpEF exacerbation We will sign off at this time. Please page the [facility]-ID service pager at [phone] with questions. Thank you for the consultation. Primary service: ID Primary Service Options: No additional needs noted INFECTIOUS DISEASES THERAPY RECOMMENDATIONS Antimicrobial plan: Patient will stay on the following antimicrobials: Cefepime 2 gm IV every 24 hours Tentative stop date stop date: 11/19/24-11/21/24 Lab monitoring while on antimicrobial therapy: No Should patient be enrolled in OPAT/COPAT program: No Infectious Diseases follow-up: Follow-up: No outpatient follow-up indicated. Central catheter management at end of treatment: Not applicable Juju Mahoney MD Internal Medicine PGY-2 Cosigned by Beth Cutler M.B.BAnaSnAa at 11/18/2024 1:00 PM CDT Associated attestation - Beth Cutler M.B.B.S. - 11/18/2024 1:00 PM CDT I saw and evaluated the patient, participating in the hamlin portions of the service. I reviewed the resident/fellow???s note. I agree with the resident/fellow???s findings and plan. We are consulted to see Mr. Marcos Perez for concern for HAP in the setting of recent hospitalization. Mr. Marcos Perez is an 89-year-old gentleman with multiple comorbidities including coronary artery disease, heart failure with preserved ejection fraction, asthma and atrial fibrillation who initially presented on 11/09 for evaluation of cough and dyspnea. He requires 2 L of oxygen at baseline and where CPAP at night however prior to presentation he was more dyspneic. He was still requiring his usual oxygen. X-ray showed pulmonary edema versus consolidation and he was started on ceftriaxone and doxycycline for presumed community-acquired pneumonia. He remained hemodynami denise stable in the hospital and was transitioned to cefpodoxime and doxycycline on dismissal on 11/12. He then returned yesterday with ongoing dyspnea which really had an improved. Chest x-ray was done which showed bilateral interstitial and alveolar opacities and bibasilar region which were worsecompared to previous admission. Leukocyte count was 13.6. He was otherwise afebrile however reported sweats at home. Given recent hospitalization he was started on vancomycin and cefepime. He was also given Lasix due to increase in lower extremity swelling. MRSA swab was done which is negative and vancomycin has been discontinued. This morning he reports feeling significantly better. From ID perspective, he has remained afebrile in this morning reports feeling better. In this case would continue cefepime. Duration of therapy could be 3 to 5 days. In this case likely presentation is combination of recent pneumonia as well as heart failure versus fluid overload alone. Given rapidimprovement, I think even 3 days of antimicrobials would be reasonable given the mixed picture. We have asked the team to get chest CT to get better assessment of infiltrates. Noted that team ordered pneumonia panel already however patient is not producing any sputum and in this case would ask to try induced sputum. If induced sputum can not be obtained then would ask to get RECORDING [employer]UD[employer] SET UP WORKER swab for respiratory pathogen panel PCR. Would also ask to get Legionella urine antigen and strep pneumo urine antigen. Given that patient has already improved, we will sign off. If however his respiratory status worsens or he develops new fever, would ask to call us back. documented in this encounter Nursing Notes * Tracey Hargrove R.N. - 11/21/2024 1:56 PM CDT Problem: Risk for Compromised Skin Integrity-Other Energy Broker(s) Goal: Risk for Compromised Skin Integrity-Other Energy Broker(s) Outcome: Adequate for Discharge Problem: PAIN - [...] for Discharge Problem: Risk for Compromised Skin Integrity-Compression Wraps Goal: Maintain and/or improve skin integrity under and around compression wraps. Outcome: Adequate for Discharge Problem: Risk for Compromised Skin Integrity-Maurice Sensory Perception Score 1, 2, or 3 Goal: Manage sensory perception deficits to maintain and/or improve skin integrity. Outcome: Adequate for Discharge Problem: Risk for Compromised Skin Integrity-Maurice Activity Score 3 Goal: Achieve optimal activity to maintain or improve skin integrity. Outcome: Adequate for Discharge Problem: Risk for Compromised Skin Integrity-CPAP/BIPAP Goal: Maintain and/or improve skin integrity under and around CPAP/BIPAP. Outcome: Adequate for Discharge Problem: Risk for Compromised Skin Integrity-Compression Wraps Goal: Maintain and/or improve skin integrity under and around compression wraps. Outcome: Adequate for Discharge Problem: Risk for Compromised Skin Integrity-Other Energy Broker(s) Goal: Risk for Compromised Skin Integrity-Other Energy Broker(s) Outcome: Adequate for Discharge Problem: Risk for Compromised Skin Integrity-Maurice Activity Score 3 Goal: Achieve optimal activity to maintain or improve skin integrity. Outcome: Adequate for Discharge Shift Goals: Clinical Goals for the Shift: Prepare for dc to assisted living facility Identify possible barriers to meeting goals/advancing plan of care: None End of Shift Summary: Pt dc to assisted living in [place], [place]. Called facility to give report. Pt is ambulating w/ walker. PIV removed. Oxygen used w/ activity & CPAP @ night. Completed abx during hospital stay, dc w/ 2 days of oral prednisone & PRN prednisone for SOB. * Og Kincaid R.N. - 11/19/2024 6:54 PM CDT Shift Goals: Clinical Goals for the Shift: Maintain adequate oxygenation. End of Shift Summary: Pt was vitally stable throughout shift. Dyspnea and tachypnea noted with movement. Two 200+ ft walks. 1 BM in the morning. No PRNs given. Oral care and wipes done in the afternoon; linens and gown changed. Problem: Risk for Compromised Skin Integrity-Other Energy Broker(s) Goal: Risk for Compromised Skin Integrity-Other Energy Broker(s) Outcome: Progressing Problem: PAIN - ADULT Goal: PT VERBALIZES/DEMONSTRATES ADEQUATE COMFORT LEVEL OR BASELINE Outcome: Progressing Problem: KNOWLEDGE DEFICIT Goal: Patient/family/caregiver demonstrates understanding of disease process, treatment plan, medications, and discharge instructions Outcome: Progressing Problem: INFECTION - ADULT Goal: Absence of infection during hospitalization Outcome: Progressing Problem: SKIN/TISSUE INTEGRITY Goal: Skin/Tissue integrity maintained or improved Outcome: Progressing Goal: Oral and Nasal mucous membranes remain intact Outcome: Progressing Problem: SAFETY ADULT Goal: Maintain a safe environment Outcome: Progressing Problem: DISCHARGE PLANNING Goal: Patient discharge needs identified Outcome: Progressing Problem: SAFETY ADULT - RISK FOR FALL AND OR FALL INJURY Goal: Patient remains free from fall/fall injury Outcome: Progressing Problem: Risk for Compromised Skin Integrity-Maurice Sensory Perception Score 1, 2, or 3 Goal: Manage sensory perception deficits to maintain and/or improve skin integrity. Outcome: Progressing Problem: Risk for Compromised Skin Integrity-Maurice Activity Score 3 Goal: Achieve optimal activity to maintain or improve skin integrity. Outcome: Progressing Problem: Risk for Compromised Skin Integrity-CPAP/BIPAP Goal: Maintain and/or improve skin integrity under and around CPAP/BIPAP. Outcome: Progressing * Barbara Jameson R.N. - 11/19/2024 5:18 AM CDT Shift Goals: Clinical Goals for the Shift: Maintain adequate oxygenation. Identify possible barriers to meeting goals/advancing plan of care: increased oxygen needs Problem: Risk for Compromised Skin Integrity-Other Energy Broker(s) Goal: Risk for Compromised Skin Integrity-Other Energy Broker(s) Outcome: Progressing Problem: Risk for Compromised Skin Integrity-Compression Wraps Goal: Maintain and/or improve skin integrity under and around compression wraps. Outcome: Progressing Problem: PAIN - ADULT Goal: PT VERBALIZES/DEMONSTRATES ADEQUATE COMFORT LEVEL OR BASELINE Outcome: Progressing Note: Denies Problem: SAFETY ADULT - RISK FOR FALL AND OR FALL INJURY Goal: Patient remains free from fall/fall injury Outcome: Progressing Note: Call light appropriate. Alarms on for safety with no attempts to self transfer. End of Shift Summary: Patient slept well overnight. Good urinary output. CPAP in place. documented in this encounter ED Notes * Germán Gaspar M.D. - 11/17/2024 12:03 PM CDT I have personally seen and examined this patient. I have fully participated in the care of this patient. I have reviewed all clinical information including history, physical exam, orders, and plan. Iagree with the note of the resident. Final Diagnoses: as of 11/18/24 1203 Shortness Of Breath Pneumonia Community Acquired Germán Gaspar M.D. 11/18/24 1204 Edited by: Smita Lott, [employer] Sr. Hazardous Waste Management Specialist 12/10/24 7:40 AM CDT * Sajan Kim M.D. - 11/17/2024 8:23 AM CDT EMERGENCY MEDICINE CHIEF COMPLAINT Shortness of Breath INITIAL VITAL SIGNS Initial Vitals Temperature 10/03/25 2211 36.9 ??C Pulse Rate 11/16/242210 86 Heart Rate 11/17/24 0326 74 Resp Rate 11/16/242210 20 Blood Pressure 11/16/242210 104/64 SpO2 11/16/242210 94 % Pain Score 11/17/24 0809 3 ASSESSMENT AND PLAN This is a 89 y.o. male past medical history of atrial fibrillation on anticoagulation, NSTEMI, eosinophilic asthma, pneumonia, presenting with difficulty breathing. Patient was recently seen for pneumonia and admitted to the hospital. He was subsequently discharged with oxygen. Patient states that s magdiel then he has been having subjective fevers, night sweats, difficulty breathing, increased oxygen requirement. He denies worsening productive cough, vomiting, chest pain, abdominal pain, diarrhea,hematochezia, dysuria, hematuria. On physical exam diaphoretic male lying in bed with labored breathing Cardiac regular rate and rhythm no murmurs rubs or gallops Lungs diffusely wheezy with variable crackles Differential diagnosis includes but is not limited to pneumonia, reactive airway disease, heart failure, anemia, hypoglycemia, other. Initial labs were notable for an elevated white count. That combination with the patient's tachypnea caused us to initiate the sepsis timer. Patient was started on vancomycin and cefepime given prior hospitalization and failure of outpatient antibiotics. He was also given DuoNebs and steroids. BNP was collected. ED Course as of 11/17/24 1012 Sat Nov 17, 2024 0823 Administration of 30 mL/kg of crystalloid fluids would be detrimental or harmful for this patient due multi-factorial hypoxic respiratory failure. Plan to administer 500 mL now and reassess. 1012 Patient admitted and signed out for multifactorial shortness of breath including likely pneumonia, possibly heart failure, possibly reactive airway disease. Patient remained hemodynamically stable throughout there 13 hours stay in our emergency department. Final Diagnoses: as of 11/17/24 1012 Shortness Of Breath Pneumonia Community Acquired Sajan Kim M.D. Resident 11/17/24 1012 * Telma Juárez, R.N. - 11/17/2024 8:14 AM CDT Pt d/c from [facility] on Tuesday, has had increase SOB starting on Tuesday. Pt states he was noting low grade fevers, weakness, SOB, and night sweats Pt was able to stand and pivot, upon assessment following transfer to the bed, his O2 was 90% following minimal exertion, he then recovered to >95% on 2 L NC. Pt does wear oxygen with exertion baseline Telma Juárez R.N. 11/17/2415 Telma Juárez R.N. 11/17/24821 * Rosemarie Sheffield R.N. - 11/16/2024 9:07 PM CDT Pt presents to the ED, brought by family from assisted living. He had recently been DC'd from the hospital 2 wks ago for pneumonia. He continues to have shortness of breath and family thought it was worse this evening when they spoke over the phone. Baseline is using 2L O2 nasal cannula Rosemarie Sheffield R.N. 11/16/242108 documented in this encounter Miscellaneous Notes * Documentation Clarification - Rosemarie Lee P.A.-C. 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 Clinical Indicators/Risk Factors/Treatment: -11/17 H&P (Jose): Marcos Perez is a 89 y.o. male who presents with acute dyspnea,and noted to be hypoxic with bilateral pulmonary opacities with concern for healthcare associated pneumonia. He was recently discharged on 11/12/2024 ... for community-acquired pneumonia. There was also a concern for possible acute decompensated HFpEF. Background ... atrial fibrillation on anticoagulation, obstructive sleep apnea, eosinophilic asthma, hyperlipidemia, gastroesophageal reflux disease, depression, prolonged QT syndrome, heart failure with preserved ejection fraction (EF 53%), history complete heart block ... s/p pacemaker, and mild CAD via angiogram, prior NSTEMI 2018 -11/18 [facility] (Jesus): BMI: 32.4 -Per [facility] Flowsheets: BMI/wt: (11/16) 88.905 kg; (11/17) 31.8; (11/18) 32.4; (11/19) 31.7; (11/20) 31.1 -Per [facility] MAR: Albuterol, DuoNeb, Pulmicort, Breo Ellipta, Singulair, Lasix, Protonix Options provided: -- Class 1 Obesity with BMI 32.4 -- Other - I will add my own diagnosis -- Disagree - Clinically unable to determine / Unknown -- Refer to Clinical Documentation Reviewer Query created by: Omar Weinstein on 11/27/2024 9:57 AM Electronically signed by: Rosemarie Lee P.A.-C. 11/27/2024 10:40 AM * Hospital Course - Lenny Brown APRN, C.N.P., D.N.P. - 11/17/2024 11:02 AM CDT Mr. Marcos Perez is a 89 y.o. male who presented to the [facility] ED on 11/16 with worsening dyspnea, subjective fever, night sweats, and hypoxia despite oral antibiotics. He was recently discharged on 11/12/2024 from [facility] Medicine for community-acquired pneumonia. He was treated with IV ceftriaxone and doxycycline while in the hospital and completed oral course of cefpodoxime and doxycycline on 11/17. Background includes atrial fibrillation on anticoagulation, obstructive [...] rest prior to this illness. He resides atan assisted living facility in [place] but receives specialty care here at [facility]. ED Course In the ED, he was vitally stable, afebrile, with oxygen saturation of 94% on 2L via NC. Lab workup demonstrated mild leukocytosis (13.6) with neutrophilic predominance, stable chronic normocytic anemia (Hgb 11.2), mild hyponatremia (133), baseline renal function, and normal lactate. CXR revealed bilateral interstitial and alveolar opacities and bibasilar region and increasing hazy opacities in right mid lung, with trace bilateral pleural effusions and enlarged cardiac silhouette. Blood culturesx2 were collected, 500 mL bolus was provided, and empirical antibiotics (vancomycin and cefepime were ordered, in light of possible healthcare associated pneumonia, and failure of outpatient antibiotics, and DuoNebs and steroids were also provided). He was admitted to Medicine 5 for further management. Medicine 5 Service Mr. Perez was continued on broad spectrum antibiotics. Infectious Disease and Pulmonary Medicine were consulted and ultimately recommended 5 days of IV cefepime for treatment of suspected HAP (respiratory pathogen panel negative and induced-sputum unsuccessful). He completed IV antibiotics on 11/21/2024. Additionally, they recommended initiation of oral steroids. His respiratory status improved after initiation of steroids. Clinical exam and increased weight from previously noted dry weight raised concern for element of CHF exacerbation. He was diuresed with IV Lasix on 11/18 with improvement in clinical exam as well as his weight. He was restarted on his home torsemide dose on 11/19. His cr. Bumped to 1.39 after receiving aggressive diuresis on 11/20. In the morning of 11/21 his cr. Started to improve and down to 1.24. On the morning of 11/21/2024, the patient was back to his baseline oxygen needs, able to mobilize, voiding and having bowel movements without difficulty. He was discharged back to his assisted living.He has a scheduled PCP appointment on Nov 27 at 11 am. Recommend PCP to obtain BMP, monitor creatinine and titrate Xarelto as needed based on renal function. He will plan to follow up outpatient with Dr. [facility] for reassessment after discharge. documented in this encounter Plan of Treatment Upcoming Encounters Date Type Department Care Team (Latest Contact Info) Description 01/04/2025 7:45 AM [facility] Appointment Department of Radiology, [facility] in [place], [place] [address] [place] [phone] Blanco Spivey M.D. [address] [place] [phone] Discharge Disposition: Home or Self Care 01/04/2025 8:30 AM CAKE [facility]ER Diagnostic Division of Pulmonary Medicine in [place], [place] [address] [place] [phone] Blanco Spivey M.D. [address] [place] [phone] 01/04/2025 12:30 PM CAKE [facility]NOCKER Office Visit Division of Pulmonary Medicine in [place], [place] [address] [place] [address] Blanco Spivey M.D. [address] [place] [phone] 02/11/2025 10:15 AM CAKE KNOCKER Clinical Communication Virtual Review in [place], [place] 200 [place] [phone] 02/12/2025 11:15 AM CAKE [facility]ER Appointment Department of Radiology, [facility] in [place], [place] [address] [place] [phone] Lilli Moore M.D. [address] [place] [phone] 02/12/2025 11:50 AM CAKE [facility]NOCKER Appointment Department of Laboratory Medicine and Pathology, [facility] in [place], [place] [address] [place] [phone] Lilli Moore M.D. [address] [place] [phone] 02/12/2025 1:30 PM CAKE KNOCKER Office Visit Division of Pulmonary Medicine in [address] [phone] Lilli Moore M.D. [address] [place] [phone] Scheduled Referrals Name Type Priority Associated Diagnoses Orde r Schedule External referral PT (non-[facility]) Outpatient Referral Routine Decline Functional Status [R53.81] Ordered: 11/21/2024 External referral OT (non-[facility]) Outpatient Referral Routine Decline Functional Status [R53.81] Ordered: 11/21/2024 documented as of this encounter Procedures Procedure Name Priority Date/Time Associated Diagnosis Comments BASIC METABOLIC PANEL, S/P STAT 11/21/2024 8:08 AM CDT BASIC METABOLIC PANEL, S/P Routine 11/20/2024 9:01 PM CDT CBC WITH DIFFERENTIAL, B Routine 11/19/2024 8:22 PM CDT C-REACTIVE PROTEIN (CRP), S/P Routine 11/19/2024 8:22 PM CDT RENAL FUNCTION PANEL, S Routine 11/18/2024 8:05 PM CDT CBC WITH DIFFERENTIAL, B Routine 11/18/2024 8:05 PM CDT C-REACTIVE PROTEIN (CRP), S/P Routine 11/18/2024 8:03 PM CDT STREPTOCOCCUS PNEUMONIAE AG, U Routine 11/18/2024 6:51 PM CDT LEGIONELLA AG, U Routine 11/18/2024 6:51 PM CDT RESPIRATORY PANEL, PCR, RECORDING STUDIO SET UP WORKER Routine 11/18/2024 5:[address] CHEST WITHOUT IV CONTRAST RAD - Routine (most inpatients and all outpatients) 11/18/2024 2:02 PM CDT CBC WITH DIFFERENTIAL, B Routine 11/17/2024 8:32 PM CDT PHOSPHORUS (INORGANIC), S Routine 11/17/2024 8:32 PM CDT MAGNESIUM, S Routine 11/17/2024 8:32 PM CDT BASIC METABOLIC PANEL, S/P Routine 11/17/2024 8:32 PM CDT MRSA/STAPHYLOCOCCUS AUREUS, NASAL, BY PCR Routine 11/17/2024 9:55 AM CDT NT-PRO B-TYPE NATRIURETIC PEPTIDE (BNP), S STAT 11/17/2024 8:43 AM CDT BACTERIA / THERESA CULTURE, BLOOD STAT 11/17/2024 8:43 AM CDT LACTATE, POCT, B STAT 11/17/2024 8:38 AM CDT VBG & LYTES CG8+, POCT, B STAT 11/17/2024 8:34 AM CDT BACTERIA / THERESA CULTURE, BLOOD STAT 11/17/2024 8:33 AM CDT IFLU A, B, SARS COV-2, PCR, RAPID,V STAT 11/17/2024 8:14 AM CDT LACTATE, B STAT 11/16/2024 10:02 PM CDT BASIC METABOLIC PANEL, S/P STAT 11/16/2024 10:02 PM CDT CBC WITH DIFFERENTIAL, B STAT 11/16/2024 10:01 PM CDT DX CHEST AP OR PA AND LATERAL 2 VIEWS RAD - Semiurgent (Fast; most ED patients; some inpatients) 11/16/2024 9:19 PM CDT documented in this encounter Results * (ABNORMAL) Basic Metabolic Panel (11/21/2024 8:08 AM CDT) Potassium, P 4.0 3.6 - 5.2 mmol/L 11/21/2024 8:30 AM CDT STMA Sodium, P 135 135 - 145 mmol/L 11/21/2024 8:30 AM CDT STMA Chloride, P 96(L) 98 - 107 mmol/L 11/21/2024 8:30 AM CDT STMA Bicarbonate, P 26 22 - 29 mmol/L 11/21/2024 8:30 AM CDT STMA Anion Gap, P 13 7 - 15 11/21/2024 8:30 AM CDT STMA BUN (Blood Urea Nitrogen), P 40(H) 8 - 24 mg/dL 11/21/2024 8:30 AM CDT STMA Creatinine 1.24 0.74 - 1.35 mg/dL 11/21/2024 8:30 AM CDT STMA Estimated GFR (eGFR) 56(L) >=60 mL/min/BSA 11/21/2024 8:30 AM CDT STMA Comment: Estimated GFR calculated using the 2020 CKD_EPI creatinine equation. Calcium, Total, P 8.7(L) 8.8 - 10.2 mg/dL 11/21/2024 8:30 AM CDT STMA Glucose, P 128 70 - 140 mg/dL 11/21/2024 8:30 AM CDT STMA Blood (Blood, Venous) 11/21/2024 8:08 AM CDT 11/21/2024 8:15 AM CDT us Lenny Brown APRN, C.N.P., D.N.P. LAB BLOOD ADD-ON Final Result [facility] [address] [place] [address], [facility] 200 [place] [address] * (ABNORMAL) Basic Metabolic Panel (11/20/2024 9:01 PM CDT) [facility] Potassium, S 4.3 3.6 - 5.2 mmol/L 11/20/2024 10:14 PM CDT DTL Sodium, S 133(L) 135 - 145 mmol/L 11/20/2024 10:14 PM CDT DTL Chloride, S 92(L) 98 - 107 mmol/L 11/20/2024 10:14 PM CDT DTL Bicarbonate, S 23 22 - 29 mmol/L 11/20/2024 10:14 PM CDT DTL Anion Gap 18(H) 7 - 15 11/20/2024 10:14 PM CDT DTL BUN (Blood Urea Nitrogen), S 35(H) 8 - 24 mg/dL 11/20/2024 10:14 PM CDT DTL Creatinine 1.39(H) 0.74 - 1.35 mg/dL 11/20/2024 10:14 PM CDT DTL Estimated GFR (eGFR) 49(L) >=60 mL/min/BSA 11/20/2024 10:14 PM CDT DTL Comment: Estimated GFR calculated using the 2020 CKD_EPI creatinine equation. Calcium, Total, S 8.9 8.8 - 10.2 mg/dL 11/20/2024 10:14 PM CDT DTL Glucose, S 216(H) 70 - 140 mg/dL 11/20/2024 10:14 PM CDT DTL Blood (Blood, Venous) 11/20/2024 9:01 PM CDT 11/20/2024 9:44 PM CDT Lenny Brown APRN C.N.P., D.N.P. LAB BLOOD ADD-ON Final Result Performing Organization Address [facility] Co de Phone Number [facility] [address] [place] [address] * (ABNORMAL) CRP (C-Reactive Protein) (11/19/2024 8:22 PM CDT) Pathologist [facility] C-Reactive Protein (CRP), S 79.9(H) <5.0 mg/L 11/19/2024 9:58 PM CDT DTL Blood (Blood, Venous) 11/19/2024 8:22 PM CDT 11/19/2024 9:25 PM CDT Rosemarie Lee P.A.-C. LAB BLOOD ADD-ON Final Res ult Performing Organization Address City/[facility]/ZIP Co de Phone Number [facility] [address] [place] [address] * (ABNORMAL) CBC with Differential, Blood (11/19/2024 8:22 PM CDT) Hemoglobin 11.5(L) 13.2 - 16.6 g/dL 11/19/2024 9:35 PM CDT DTL Hematocrit 35.0(L) 38.3 - 48.6 % 11/19/2024 9:35 PM CDT DTL Erythrocytes 4.12(L) 4.35 - 5.65 x10(12)/L 11/19/2024 9:35 PM CDT DTL MCV 85.0 78.2 - 97.9 fL 11/19/2024 9:35 PM CDT DTL RBC Distrib Width 14.0 11.8 - 14.5 % 11/19/2024 9:35 PM CDT DTL Platelet Count 313 135 - 317 x10(9)/L 11/19/2024 9:35 PM CDT DTL Leukocytes 14.5(H) 3.4 - 9.6 x10(9)/L 11/19/2024 9:35 PM CDT DTL Neutrophils 13.26(H) 1.56 - 6.45 x10(9)/L 11/19/2024 9:35 PM CDT DHPM Lymphocytes 0.46(L) 0.95 - 3.07 x10(9)/L 11/19/2024 9:35 PM CDT DTL Monocytes 0.60 0.26 - 0.81 x10(9)/L 11/19/2024 9:35 PM CDT DTL Eosinophils 0.15 0.03 - 0.48 x10(9)/L 11/19/2024 9:35 PM CDT DTL Basophils 0.04 0.01 - 0.08 x10(9)/L 11/19/2024 9:35 PM CDT DTL Blood (Blood, Venous) 11/19/2024 8:22 PM CDT 11/19/2024 9:25 PM CDT us Rosemarie Lee P.A.-C. LAB BLOOD ADD-ON Final Res ult [facility] [address] [place] [address], [facility] DTL [facility] [address] [place] [address] DHPM [facility] [address] [place] [address] * (ABNORMAL) Renal Function Panel (11/18/2024 8:05 PM CDT) Potassium, S 3.9 3.6 - 5.2 mmol/L 11/18/2024 9:34 PM CDT DTL Sodium, S 136 135 - 145 mmol/L 11/18/2024 9:34 PM CDT DTL Chloride, S 98 98 - 107 mmol/L 11/18/2024 9:34 PM CDT DTL Bicarbonate, S 23 22 - 29 mmol/L 11/18/2024 9:34 PM CDT DTL Anion Gap 15 7 - 15 11/18/2024 9:34 PM CDT DTL BUN (Blood Urea Nitrogen), S 25(H) 8 - 24 mg/dL 11/18/2024 9:34 PM CDT DTL Creatinine 1.05 0.74 - 1.35 mg/dL 11/18/2024 9:34 PM CDT DTL Estimated GFR (eGFR) 68 >=60 mL/min/BSA 11/18/2024 9:34 PM CDT DTL Comment: Estimated GFR calculated using the 2020 CKD_EPI creatinine equation. Calcium, Total, S 8.8 8.8 - 10.2 mg/dL 11/18/2024 9:34 PM CDT DTL Glucose, S 135 70 - 140 mg/dL 11/18/2024 9:34 PM CDT DTL Albumin, S 3.2(L) 3.5 - 5.0 g/dL 11/18/2024 9:34 PM CDT DTL Phosphorus (Inorganic), S 3.0 2.5 - 4.5 mg/dL 11/18/2024 9:34 PM CDT DTL Blood (Blood, Venous) 11/18/2024 8:05 PM CDT 11/18/2024 9:01 PM CDT us Rosemarie Lee P.A.-C. LAB BLOOD ADD-ON Final Res ult [facility] [address] [place] [address], [facility] DTL [facility] [address] [place] [address] * (ABNORMAL) CBC with Differential, Blood (11/18/2024 8:05 PM CDT) Hemoglobin 10.8(L) 13.2 - 16.6 g/dL 11/18/2024 9:10 PM CDT DTL Hematocrit 32.9(L) 38.3 - 48.6 % 11/18/2024 9:10 PM CDT DTL Erythrocytes 3.87(L) 4.35 - 5.65 x10(12)/L 11/18/2024 9:10 PM CDT DTL MCV 85.0 78.2 - 97.9 fL 11/18/2024 9:10 PM CDT DTL RBC Distrib Width 13.6 11.8 - 14.5 % 11/18/2024 9:10 PM CDT DTL Platelet Count 293 135 - 317 x10(9)/L 11/18/2024 9:10 PM CDT DTL Leukocytes 15.0(H) 3.4 - 9.6 x10(9)/L 11/18/2024 9:10 PM CDT DTL Neutrophils 13.02(H) 1.56 - 6.45 x10(9)/L 11/18/2024 9:10 PM CDT DHPM Lymphocytes 0.86(L) 0.95 - 3.07 x10(9)/L 11/18/2024 9:10 PM CDT DTL Monocytes 1.01(H) 0.26 - 0.81 x10(9)/L 11/18/2024 9:10 PM CDT DTL Eosinophils 0.11 0.03 - 0.48 x10(9)/L 11/18/2024 9:10 PM CDT DTL Basophils 0.03 0.01 - 0.08 x10(9)/L 11/18/2024 9:10 PM CDT DTL Blood (Blood, Venous) 11/18/2024 8:05 PM CDT 11/18/2024 9:02 PM CDT us Rosemarie Lee P.A.-C. LAB BLOOD ADD-ON Final [place] [address] * (ABNORMAL) CRP (C-Reactive Protein) (11/18/2024 8:03 PM CDT) C-Reactive Protein (CRP), S 80.4(H) <5.0 mg/L 11/19/2024 9:15 AM CDT DT Blood (Blood, Venous) 11/18/2024 8:03 PM CDT 11/19/2024 8:47 AM CDT Rosemarie Lee P.A.-C. LAB BLOOD ADD-ON Final Res ult Performing Organization Address City/[facility]/[place] [address] * Streptococcus pneumoniae Antigen, Urine (11/18/2024 6:51 PM CDT) Pathologist [facility] Streptococcus pneumoniae Ag, U Negative Negative 11/19/2024 2:40 PM CDT [facility] Comment: Negative for pneumococcal pneumonia, suggesting no current or recent infection. Infection due to S. pneumoniae cannot be ruled out since the antigen present in the sample may be below detection limit of the test. ----ADDITIONAL INFORMATION---- This assay was performed using the FDA-cleared BinaxNOW Streptococcus pneumoniae Antigen test, a rapid immunochromatographic assay. Urine (Urine, Midstream) 11/18/2024 6:51 PM CDT 11/19/2024 1:08 PM CDT Rosemarie Lee P.A.-C. LAB MICROBIOLOGY - GENERAL ORDERABLES Final Result Performing Organization Address City/[facility]/ZIP Co de Phone Number [facility] [address] [place], [place] [address] [address] [place] [address] [place] [address] * Legionella Antigen, Urine (11/18/2024 6:51 PM CDT) Pathologist [facility] Legionella Ag, U Negative Negative 11/20/19 1:53 PM CDT [facility] Comment: Negative for L. pneumophila serogroup 1 antigen, suggesting no recent or current infection. Infection due to Legionella cannot be ruled out since other serogroups and species may cause disease, antigen may not be present in urine in early infection, and the level of antigen present in the urine may be below the detection limit of the test. ----ADDITIONAL INFORMATION---- This assay was performed using the FDA-cleared oDesk Legionella Urinary Antigen Test, a rapid immunochromatographic assay. Urine (Urine, Midstream) 11/18/2024 6:51 PM CDT 11/19/2024 1:18 PM CDT Rosemarie Lee P.A.-C. LAB MICROBIOLOGY - GENERAL ORDERABLES Final Result [facility] [address] [place] [address] [facility] [address] [place] [address] [place] [address] * Respiratory Panel, PCR, Nasopharyngeal (11/18/2024 5:39 PM CDT) Pathologist [facility] Specimen Source NASOPHARYNGEAL SWAB 11/18/2024 7:34 PM CDT DTL Adenovirus Undetected Undetected 11/18/2024 7:34 PM CDT DTL Coronavirus 229E Undetected Undetected 11/19/19 7:34 PM CDT DTL Coronavirus HKU1 Undetected Undetected 11/19/19 7:34 PM CDT DTL Coronavirus NL63 Undetected Undetected 11/19/19 7:34 PM CDT DTL Coronavirus OC43 Undetected Undetected 11/19/19 7:34 PM CDT DTL SARS Coronavirus-2 Undetected Undetected 11/18/2024 7:34 PM CDT DTL Comment: SARS-CoV-2 RNA absent. This result does not rule out COVID-19 in the patient, as the sensitivity of the test depends on the timing of the specimen collection and the quality of the specimen. Result should be correlated with patient's history and clinical presentation. Human Metapneumovirus Undetected Undetected 11/18/2024 7:34 PM CDT DTL Human Rhinovirus/ Enterovirus Undetected Undetected 11/18/2024 7:34 PM CDT DTL Influenza A Undetected Undetected 11/18/2024 7:34 PM CDT DTL Influenza B Undetected Undetected 11/18/2024 7:34 PM CDT DTL Parainfluenza Virus 1 Undetected Undetected 11/18/2024 7:34 PM CDT DTL Parainfluenza Virus 2 Undetected Undetected 11/18/2024 7:34 PM CDT DTL Parainfluenza Virus 3 Undetected Undetected 11/18/2024 7:34 PM CDT DTL Parainfluenza Virus 4 Undetected Undetected 11/18/2024 7:34 PM CDT DTL Respiratory Syncytial Virus, PCR Undetected Undetected 11/18/2024 7:34 PM CDT DTL Bordetella parapertussis Undetected Undetected 11/18/2024 7:34 PM CDT DTL Bordetella pertussis Undetected Undetected 11/18/2024 7:34 PM CDT DTL Chlamydia pneumoniae Undetected Undetected 11/18/2024 7:34 PM CDT DTL Mycoplasma pneumoniae Undetected Undetected 11/18/2024 7:34 PM CDT DTL Interpretation This assay is not predicted to detect SARS-coronavirus (CoV), or MERS-CoV. If SARS-CoV or MERS-CoV is suspected, coordinate testing through a local public health laboratory. 11/18/2024 7:34 PM CDT DTL Comment: ----ADDITIONAL INFORMATION---- This assay is performed using the FDA-Cleared FilmArray Respiratory Panel 2.1 (BioActor). Swab (Nasopharynx) 11/18/2024 5:39 PM CDT 11/18/2024 6:39 PM CDT Rosemarie Lee P.A.-C. LAB MICROBIOLOGY - GENERAL ORDERABLES Final Result [facility] [address] [place] [address], [facility] DT [address] [place] [address] * CT Chest without IV Contrast (11/18/2024 2:02 PM CDT) Anatomical Region Laterality Modality Chest, Thoracic RST LOS, Tho racic ARZ LOS, Thoracic FLA LOS N/A Computed Tomography, Compute d Tomography Impressions 11/18/2024 2:52 PM CDT New/increased patchy groundglass airspace opacities in the upper lobes could reflect an infectious/inflammatory process. Although acute exacerbation of interstitial disease is in the differential, it is considered less likely. Follow-up to resolution is recommended. 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 New/increased patchy groundglass airspace opacities in the bilateral upper lobes (series 3/image 237). No pleural effusion or pneumothorax. Stable 4 mm right lower lobe pulmonary nodule (series 3/image 429). No definite new or growing suspicious solid pulmonary nodules. Tiny pleural calcifications. Trachea and mainstem bronchi are patent. Mildly decreased thoracic adenopathy. Mitral annular calcifications. Mild to moderate coronary calcifications. Minimally calcified thoracic aorta which is otherwise normal caliber. Left chest dual- chamber pacemaker. Scattered osseous degenerative changes. Calcified splenic granulomas. Procedure Note Timbo Stahl M.D., M.S. 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 New/increased patchy groundglassairspace opacities in the bilateral upper lobes (series 3/image 237). Nopleural effusion or pneumothorax. Stable 4 mm right lower lobe pulmonary nodule (series 3/image 429). Nodefinite new or growing suspicious solid pulmonary nodules. Tiny pleuralcalcifications. Trachea and mainstem bronchi are patent. Mildly decreased thoracicadenopathy. Mitral annular calcifications. Mild to moderate coronary calcifications.Minimally calcified thoracic aorta which is otherwise normal caliber. Leftchest dual- chamber pacemaker. Scattered osseous degenerative changes. Calcified splenic granulomas. IMPRESSION: New/increased patchy groundglass airspace opacities in the upper lobescould reflect an infectious/inflammatory process. Although acuteexacerbation of interstitial disease is in the differential, it isconsidered less likely. Follow-up to resolution is recommended. Rosemarie Lee P.A.-C. IMG CT PROCEDURES Final Re sult * Phosphorus Inorganic (11/17/2024 8:32 PM CDT) [facility] Phosphorus (Inorganic), S 3.3 2.5 - 4.5 mg/dL 11/17/2024 9:44 PM CDT DTL Blood (Blood, Venous) 11/17/2024 8:32 PM CDT 11/17/2024 9:14 PM CDT Alexander Abad, B.Ch., B.A.O. LAB BLOOD ADD-ON Final Result Performing Organization Address City/[facility]/ZIP Co de Phone Number [facility] [address] [place] [address] * Magnesium (11/17/2024 8:32 PM CDT) [facility] Magnesium, S 2.1 1.7 - 2.3 mg/dL 11/17/2024 9:44 PM CDT DTL Blood (Blood, Venous) 11/17/2024 8:32 PM CDT 11/17/2024 9:14 PM CDT Alexander Abad, B.Ch., B.A.O. LAB BLOOD ADD-ON Final Result Performing Organization Address City/[facility]/ZIP Co de Phone Number [facility] 200 [place] [address] * (ABNORMAL) CBC with Differential, Blood (11/17/2024 8:32 PM CDT) [facility] Hemoglobin 11.0(L) 13.2 - 16.6 g/dL 11/17/2024 9:18 PM CDT DTL Hematocrit 33.7(L) 38.3 - 48.6 % 11/17/2024 9:18 PM CDT DTL Erythrocytes 3.94(L) 4.35 - 5.65 x10(12)/L 11/17/2024 9:18 PM CDT DTL MCV 85.5 78.2 - 97.9 fL 11/17/2024 9:18 PM CDT DTL RBC Distrib Width 13.7 11.8 - 14.5 % 11/17/2024 9:18 PM CDT DTL Platelet Count 277 135 - 317 x10(9)/L 11/17/2024 9:18 PM CDT DTL Leukocytes 10.1(H) 3.4 - 9.6 x10(9)/L 11/17/2024 9:18 PM CDT DTL Neutrophils 9.04(H) 1.56 - 6.45 x10(9)/L 11/17/2024 9:18 PM CDT DHPM Lymphocytes 0.59(L) 0.95 - 3.07 x10(9)/L 11/17/2024 9:18 PM CDT DTL Monocytes 0.41 0.26 - 0.81 x10(9)/L 11/17/2024 9:18 PM CDT DTL Eosinophils <0.03 0.03 - 0.48 x10(9)/L 11/17/2024 9:18 PM CDT DTL Basophils <0.03 0.01 - 0.08 x10(9)/L 11/17/2024 9:18 PM CDT DTL Blood (Blood, Venous) 11/17/2024 8:32 PM CDT 11/17/2024 9:11 PM CDT us Alexander Abad, B.Ch., B.A.O. LAB BLOOD ADD-ON Final Result [facility] [employer] [facility] [address] [place] [address], [place] DTL [facility] [address] [place] [address] [facility] [address] [place] [address] * (ABNORMAL) Basic Metabolic Panel (11/17/2024 8:32 PM CDT) [facility] Potassium, S 5.0 3.6 - 5.2 mmol/L 11/17/2024 9:44 PM CDT DTL Sodium, S 134(L) 135 - 145 mmol/L 11/17/2024 9:44 PM CDT DTL Chloride, S 99 98 - 107 mmol/L 11/17/2024 9:44 PM CDT DTL Bicarbonate, S 21(L) 22 - 29 mmol/L 11/17/2024 9:44 PM CDT DTL Anion Gap 14 7 - 15 11/17/2024 9:44 PM CDT DTL BUN (Blood Urea Nitrogen), S 24 8 - 24 mg/dL 11/17/2024 9:44 PM CDT DTL Creatinine 1.00 0.74 - 1.35 mg/dL 11/17/2024 9:44 PM CDT DTL Estimated GFR (eGFR) 72 >=60 mL/min/BSA 11/17/2024 9:44 PM CDT DTL Comment: Estimated GFR calculated using the 2020 CKD_EPI creatinine equation. Calcium, Total, S 8.7(L) 8.8 - 10.2 mg/dL 11/17/2024 9:44 PM CDT DTL Glucose, S 189(H) 70 - 140 mg/dL 11/17/2024 9:44 PM CDT DTL Blood (Blood, Venous) 11/17/2024 8:32 PM CDT 11/17/2024 9:14 PM CDT Alexander Abad, B.Елена., B.A.O. LAB BLOOD ADD-ON Final Result [facility] [address] [place] [address], [place] DTL [facility] [address] [place] [address] * Staph aureus / MRSA, Nasal, PCR (11/17/2024 9:55 AM CDT) [facility] Staphylococcus aureus, PCR Negative Negative 11/17/2024 11:53 AM CDT DT MRSA, PCR Negative Negative 11/17/2024 11:53 AM CDT DT Swab (Nares) 11/17/2024 9:55 AM CDT 11/17/2024 10:13 AM CDT Germán Gaspar M.D. LAB MICROBIOLOGY - GENERAL ORD ERABLES Final Result [facility] [address] [place] [address] * Bacteria / Theresa Culture, Blood # 2 (11/17/2024 8:43 AM CDT) [facility] Bacteria/Leonarda da Culture, Blood No growth after 5 days of incubation. 11/22/2024 9:02 AM CDT DT Blood (Blood, Peripheral Draw) 11/17/2024 8:43 AM CDT 11/17/2024 8:56 AM CDT Comment:Specimen Source Site : Blood Sajan Kim M.D. LAB MICROBIOLOGY - GENERAL OR DERABLES Final Result Performing Organization Address City/[facility]/ZIP Co de Phone Number [facility] 200 [place] [address], [facility] 200 [place] [address] * (ABNORMAL) NT-Pro B-Type Natriuretic Peptide (BNP) (11/17/2024 8:43 AM CDT) [facility] NT-Pro BNP 988(H) <=540 pg/mL 11/17/2024 9:19 AM CDT [facility] Comment: NT-proBNP values less than 300 pg/mL [...] absence of renal failure. Blood (Blood, Venous) 11/17/2024 8:43 AM CDT 11/17/2024 8:49 AM CDT us Sajan Kim M.D. LAB BLOOD ADD-ON Final Result Performing Organization Address [facility] Co de Phone Number [facility] [address] STMA [facility] [address] [place] [address] * Lactate, POCT (11/17/2024 8:38 AM CDT) [facility] Lactate, POCT 0.99 0.50 - 2.20 mmol/L 11/17/2024 8:52 AM CDT [facility] Blood (Blood, Venous) 11/17/2024 8:38 AM CDT 11/17/2024 8:38 AM CDT us Sajan Kim M.D. LAB POCT ORDERABLES - DEVICE Final Result Performing Organization Address [facility] de Phone Number POC [facility] [address] [place] [address], [facility] PCLX [facility] [address] [place] [address] * (ABNORMAL) Venous Blood Gas and Electrolytes CG8+, POCT (11/17/2024 8:34 AM CDT) [facility] Sample Site, POCT Venstick 11/17/2024 8:52 AM CDT PCSM Comment: ----ADDITIONAL INFORMATION---- Performed at the Point of Care pH, Venous, POCT, B 7.40 7.32 - 7.43 11/17/2024 8:52 AM CDT PCSM Comment: ----ADDITIONAL INFORMATION---- Performed at the Point of Care pCO2, Venous, POCT, B 47 41 - 51 mm Hg 11/17/2024 8:52 AM CDT PCSM Comment: ----ADDITIONAL INFORMATION---- Performed at the Point of Care pO2, Venous, POCT, B 19 Not Applicable mm Hg 11/17/2024 8:52 AM CDT PCSM Comment: ----ADDITIONAL INFORMATION---- Performed at the Point of Care Base Excess, Venous, POCT, B 4 Not Applicable mmol/L 11/17/2024 8:52 AM CDT PCSM Comment: ----ADDITIONAL INFORMATION---- Performed at the Point of Care HCO3, Venous, POCT, B 29 Not Applicable mmol/L 11/17/2024 8:52 AM CDT PCSM Comment: ----ADDITIONAL INFORMATION---- Performed at the Point of Care Sodium, POCT, B 131(L) 135 - 145 mmol/L 11/17/2024 8:52 AM CDT PCSM Comment: ----ADDITIONAL INFORMATION---- Performed at the Point of Care Potassium, POCT, B 3.5(L) 3.6 - 5.2 mmol/L 11/17/2024 8:52 AM CDT PCSM Comment: ----ADDITIONAL INFORMATION---- Performed at the Point of Care Calcium, Ionized, POCT, B 4.70 4.65 - 5.30 mg/dL 11/17/2024 8:52 AM CDT PCSM Comment: ----ADDITIONAL INFORMATION---- Performed at the Point of Care Glucose, POCT, B 101 70 - 140 mg/dL 11/17/2024 8:52 AM CDT PCSM Comment: ----ADDITIONAL INFORMATION---- Performed at the Point of Care Hematocrit, POCT, B 36.0(L) 38.3 - 48.6 % 11/17/2024 8:52 AM CDT PCSM Comment: ----ADDITIONAL INFORMATION---- Performed at the Point of Care Blood (Blood, Venous) 11/17/2024 8:34 AM CDT 11/17/2024 8:33 AM CDT Sajan Kim M.D. LAB POCT ORDERABLES - DEVICE Final Result POC RST [facility] [address] [place] [address], [facility] PCSM [facility] POC [address] [place] [id number] * Bacteria / Theresa Culture, Blood #1 (11/17/2024 8:33 AM CDT) Bacteria/Leonarda da Culture, Blood No growth after 5 days of incubation. 11/22/2024 9:02 AM CDT DTL Blood (Blood, Peripheral Draw) 11/17/2024 8:33 AM CDT 11/17/2024 8:55 AM CDT Comment:Specimen Source Site : Blood Sajan Kim M.D. LAB MICROBIOLOGY - GENERAL OR DERABLES Final Result Performing Organization Address City/[facility]/ZIP Co de Phone Number [facility] [address] [facility] [address] [place] [address] * Influenza A/B, SARS CoV-2, PCR, Rapid Symptomatic (11/17/2024 8:14 AM CDT) Pathologist [facility] Influenza A, PCR, Rapid, V Negative Negative 11/17/2024 8:45 AM CDT [facility] Influenza B, PCR, Rapid, V Negative Negative 11/17/2024 8:45 AM CDT [facility] SARS CoV-2, PCR, Rapid, V Undetected Undetected 11/17/2024 8:45 AM CDT [facility] Infl A/B, SARS CoV-2, PCR, Source Swab, Nasopharynx 11/17/2024 8:21 AM CDT [facility] Swab (Nasopharynx) 11/17/2024 8:14 AM CDT 11/17/2024 8:21 AM CDT us Hernandez Matthews P.A.-C. LAB MICROBIOLOGY - GENERAL ORDERABLES Final Result Performing Organization Address City/[facility]/ZIP Co de Phone Number [facility] [address] [place] [address], [facility] STMA [facility] 200 [place] [address] * Lactate, B (11/16/2024 10:02 PM CDT) Lactate, B 1.8 0.5 - 2.2 mmol/L 11/16/2024 10:21 PM CDT [facility] Blood (Blood, Venous) 11/16/2024 10:02 PM CDT 11/16/2024 10:19 PM CDT us Macy Strickland P.A.-C. LAB BLOOD NON ADD-ON Kayli l Result [facility] [address] [place] [address], [facility] STMA [facility] [address] [place] [address] * (ABNORMAL) Basic Metabolic Panel (11/16/2024 10:02 PM CDT) Potassium, P 4.1 3.6 - 5.2 mmol/L 11/16/2024 10:42 PM CDT [facility] Sodium, P 133(L) 135 - 145 mmol/L 11/16/2024 10:42 PM CDT [facility] Chloride, P 94(L) 98 - 107 mmol/L 11/16/2024 10:42 PM CDT [facility] Bicarbonate, P 26 22 - 29 mmol/L 11/16/2024 10:42 PM CDT [facility] Anion Gap, P 13 7 - 15 11/16/2024 10:42 PM CDT [facility] BUN (Blood Urea Nitrogen), P 27(H) 8 - 24 mg/dL 11/16/2024 10:42 PM CDT [facility] Creatinine 1.20 0.74 - 1.35 mg/dL 11/16/2024 10:42 PM CDT [facility] Estimated GFR (eGFR) 58(L) >=60 mL/min/BSA 11/16/2024 10:42 PM CDT [facility] Comment: Estimated GFR calculated using the 2020 CKD_EPI creatinine equation. Calcium, Total, P 8.7(L) 8.8 - 10.2 mg/dL 11/16/2024 10:42 PM CDT [facility] Glucose, P 135 70 - 140 mg/dL 11/16/2024 10:42 PM CDT [facility] Blood (Blood, Venous) 11/16/2024 10:02 PM CDT 11/16/2024 10:19 PM CDT us Macy Strickland P.A.-C. LAB BLOOD ADD-ON Final Re sult [facility] [address] [place] [address], [facility] STMA [facility] [address] [place] [address] * (ABNORMAL) CBC with Differential, Blood (11/16/2024 10:01 PM CDT) Hemoglobin 11.2(L) 13.2 - 16.6 g/dL 11/16/2024 10:22 PM CDT [facility] Hematocrit 34.3(L) 38.3 - 48.6 % 11/16/2024 10:22 PM CDT [facility] Erythrocytes 3.89(L) 4.35 - 5.65 x10(12)/L 11/16/2024 10:22 PM CDT [facility] MCV 88.2 78.2 - 97.9 fL 11/16/2024 10:22 PM CDT [facility] RBC Distrib Width 14.1 11.8 - 14.5 % 11/16/2024 10:22 PM CDT [facility] Platelet Count 267 135 - 317 x10(9)/L 11/16/2024 10:22 PM CDT [facility] Leukocytes 13.6(H) 3.4 - 9.6 x10(9)/L 11/16/2024 10:22 PM CDT [facility] Neutrophils 10.91(H) 1.56 - 6.45 x10(9)/L 11/16/2024 10:22 PM CDT [facility] Lymphocytes 1.00 0.95 - 3.07 x10(9)/L 11/16/2024 10:22 PM CDT [facility] Monocytes 1.20(H) 0.26 - 0.81 x10(9)/L 11/16/2024 10:22 PM CDT [facility] Eosinophils 0.47 0.03 - 0.48 x10(9)/L 11/16/2024 10:22 PM CDT [facility] Basophils 0.05 0.01 - 0.08 x10(9)/L 11/16/2024 10:22 PM CDT [facility] Blood (Blood, Venous) 11/16/2024 10:01 PM CDT 11/16/2024 10:19 PM CDT us Macy Strickland P.A.-C. LAB BLOOD ADD-ON Final Re sult [facility] [address] [place] [address], [facility] STMA [facility] [address] [place] [address] [facility] [address] [place] [address] * DX Chest AP or PA and Lateral 2 Views (11/16/2024 9:19 PM CDT) Anatomical Region Laterality Modality Chest, Thoracic RST LOS, Tho racic ARZ LOS, Thoracic FLA LOS N/A Digital Radiography Impressions 11/17/2024 11:33 AM CDT Since 11/09/2024, Increasing hazy opacities in the right midlung probably worsening infectious/inflammatory process. Unchanged trace bilateral pleural effusions. Aortic calcifications. Enlarged cardiac silhouette. Cardiac pacemaker. Degenerative changes of the thoracic spine. Narrative 11/17/2024 11:33 AM CDT EXAM: DX CHEST AP OR PA AND LATERAL 2 VIEWS Procedure Note Stephanie Lucero M.D. - 11/17/2024 EXAM: DX CHEST AP OR PA AND LATERAL 2 VIEWS IMPRESSION: Since 11/09/2024, Increasing hazy opacities in the right midlung probably worseninginfectious/inflammatory process. Unchanged trace bilateral pleural effusions. Aortic calcifications. Enlarged cardiac silhouette. Cardiac pacemaker. Degenerative changes of the thoracic spine. us Germán Gaspar M.D. IMG DIAGNOSTIC IMAGING PROCEDU RES Final Result documented in this encounter Visit Diagnoses Diagnosis Shortness Of Breath- Primary Shortness Of Breath Pneumonia Community Acquired Decline Functional Status [R53.81] Failure Renal Acute (Acute Kidney Injury) Acute Diastolic (Congestive) Heart Failure (HCC) Atrial Fibrillation Paroxysmal (HCC) Eosinophilic Asthma (HCC) Chronic Respiratory Failure (HCC) documented in this encounter Admitting Diagnoses Diagnosis Shortness Of Breath documented in this encounter Administered Medications Inactive Administered Medications - up to 3 most recent administrations Medication Order MAR Action Action Date Dose Rate Site albuterol nebulizer solution 2.5 mg 2.5 mg, nebulization, Once as needed, wheezing, shortness of breath, induced sputum, Starting on 11/18/24 at 1541, For 1 dose Given 11/18/2024 4:07 PM CDT 2.[address] tablet 10 mg (Dulcolax) 10 mg, oral, Daily, First dose on 11/18/24 at 0900, Swallow whole. Do NOT crush, chew, or split tablet. Given 11/21/2024 8:52 AM CDT 10 mg Given 11/20/2024 8:21 AM CDT 10 mg Given 11/18/2024 9:00 AM CDT 10 mg budesonide 0.25 mg/2 mL nebulizer solution 0.25 mg (Pulmicort) 0.25 mg, nebulization, 2 times daily (RT), First dose on 11/17/24 at 1900, Rinse mouth with water after use to reduce aftertaste and incidence of candidiasis. Do not swallow. Given 11/21/2024 6:35 AM CDT 0.25 mg Given 11/20/2024 6:28 PM CDT 0.25 mg Given 11/20/2024 6:50 AM CDT 0.25 mg cefepime in dextrose (iso osm) IVPB 2 g (Maxipime) 2 g, intravenous, at 200 mL/hr, Administer over 30 Minutes, Every 24 hours, First dose on 11/18/24 at 0900, For 4 doses, Drug Monitoring Program: Pharmacist to adjust medication dosing based on indication and drug clearance factors., Indications: Respiratory tract infection, healthcare associatedIndications:Respiratory tract infection, healthcare associated New Bag 11/21/2024 8:56 AM CDT 2 g 200 mL/hr New Bag 11/20/2024 8:06 AM CDT 2 g 200 mL/hr New Bag 11/19/2024 10:12 AM CDT 2 g 200 mL/hr ceFEPIme injection 2 g (Maxipime) 2 g, intravenous, Once, On 11/17/24 at 0847, For 1 dose, Administer IV push over 3 minutes., Drug Monitoring Program: Pharmacist to adjust medication dosing based on indication and drug clearance factors., Indications: Respiratory tract infection, healthcare associatedIndications:Respiratory tract infection, healthcare associated Given 11/17/2024 8:56 AM CDT 2 g cholecalciferol (vitamin D3) tablet 25 mcg 25 mcg, oral, Daily, First dose on 11/18/24 at 0900, cholecalciferol (vitamin D3) orderable was interchanged for cholecalciferol (vitamin D3) tablet/capsule Given 11/21/2024 8:52 AM C DT 25 mcg Given 11/20/2024 8:06 AM CDT 25 mcg Given 11/19/2024 10:10 AM CDT 25 mcg dexAMETHasone injection 10 mg (Decadron) 10 mg, intravenous, Once, On 11/17/24 at 0823, For 1 dose Given 11/17/2024 8:36 AM CDT 10 mg ferrous sulfate tablet 65 mg of iron 65 mg of iron, oral, Daily with morning meal, First dose on 11/18/24 at 0800 Given 11/19/2024 10:10 AM CDT 65 mg of iron Given 11/18/2024 9:00 AM CDT 65 mg of iron ferrous sulfate tablet 65 mg of iron 65 mg of iron, oral, Every other day, First dose (after last modification) on Tue11/21/24 at 0900 Given 11/21/2024 8:53 AM CDT 65 mg of iron finasteride tablet 5 mg (Proscar) 5 mg, oral, Daily, First dose on 11/18/24 at 0900, See tube feeding guidelines for tube feeding administration instructions. Given 11/21/2024 8:53 AM CDT 5 mg Given 11/20/2024 8:06 AM CDT 5 mg Given 11/19/2024 10:11 AM CDT 5 mg fluticasone furoate-vilanteroL 100-25 mcg/actuation inhaler 1 puff (Breo Ellipta) 1 puff, inhalation, Daily (RT), First dose on Tue11/18/24 at 0800, Rinse mouth with water after [...] inhaler from mouth. 7. Close lid. Given 11/21/2024 8:52 AM CDT 1 puff Given 11/20/2024 8:06 AM CDT 1 puff Given 11/19/2024 10:10 AM CDT 1 puff furosemide injection 40 mg (Lasix) 40 mg, intravenous, Once, On Tue11/18/24 at 1900, For 1 dose, Adults: Doses less than 120 mg: IV push over 20 mg/minute. Doses 120 mg or greater: IVPB at 4 mg/minute. Peds/Neonates: Doses less than 120 mg over 0.5 mg/kg/minute. Doses 120 mg or greater: IVPB at 4 mg/minute. Given 11/18/2024 6:5 7 PM CDT 40 mg furosemide injection 60 mg (Lasix) 60 mg, intravenous, Every 24 hours scheduled, First dose on Tue11/18/24 at 0900, Adults: Doses less than 120 mg: IV push over 20 mg/minute. Doses 120 mg or greater: IVPB at 4 mg/minute. Peds/Neonates: Doses less than 120 mg over 0.5 mg/kg/minute. Doses 120 mg or greater: IVPB at 4 mg/minute Given 11/20/2024 8:03 AM CDT 60 mg Given 11/19/2024 10:10 AM CDT 60 mg Given 11/18/2024 9:07 AM CDT 60 mg ipratropium-albuteroL 0.5-2.5 mg/3 mL nebulizer solution 3 mL (DuoNeb) 3 mL, nebulization, Once, On Tue11/16/24 at 2103, For 1 dose Given 11/16/2024 9:09 PM CDT 3 mL ipratropium-albuteroL 0.5-2.5 mg/3 mL nebulizer solution 3 mL (DuoNeb) 3 mL, nebulization, Once, On 11/17/24 at 0823, For 1 dose Given 11/17/2024 8:26 AM CDT 3 mL ipratropium-albuteroL 0.5-2.5 mg/3 mL nebulizer solution 3 mL (DuoNeb) 3 mL, nebulization, 4 times daily PRN, wheezing, shortness of breath, Starting on 11/17/24 at 1514 Given 11/18/2024 2:18 PM CDT 3 mL ipratropium-albuteroL 0.5-2.5 mg/3 mL nebulizer solution 3 mL (DuoNeb) 3 mL, nebulization, 4 times daily (RT), First dose on 11/19/24 at 1100 Given 11/21/2024 2:31 PM CDT 3 mL Given 11/21/2024 11:09 AM CDT 3 mL Given 11/21/2024 6:31 AM CDT 3 mL montelukast tablet 10 mg (Singulair) 10 mg, oral, Daily at bedtime, First dose on 11/17/24 at 2100 Given 11/20/2024 8:09 PM CDT 10 mg Given 11/19/2024 8:03 PM CDT 10 mg Given 11/18/2024 8:20 PM CDT 10 mg blgtmzbcsjdp-uago-II-Ca-minerals 400 mcg (folic acid) tablet 1 tablet 1 tablet, oral, Daily, First dose on 11/18/24 at 0900 Given 11/21/2024 8:53 AM CDT 1 tablet Given 11/20/2024 8:05 AM CDT 1 tablet Given 11/19/2024 10:10 AM CDT 1 tablet NaCl 0.9 % bolus 500 mL 500 mL, intravenous, at 500 mL/hr, Administer over 1 Hours, Once, On 11/17/24 at 0825, For 1 dose New Bag 11/17/2024 8:36 AM CDT 500 mL 500 mL/hr pantoprazole DR tablet 40 mg (Protonix) 40 mg, oral, Daily before morning meal, First dose on 11/18/24 at 0700, pantoprazole 40 mg oral daily was interchanged for omeprazole 20 or 40 mg oral daily Swallow whole. Do NOT crush, chew, or split tablet. Given 11/21/2024 6:31 AM CDT 40 mg Given 11/20/2024 6:46 AM CDT 40 mg Given 11/19/2024 6:24 AM CDT 40 mg potassium chloride ER tablet 20 mEq 20 mEq, oral, 2 times daily with meals, First dose on 11/17/24 at 1700, potassium chloride orderable was interchanged for potassium chloride tablet/capsule Swallow whole. Do NOT crush, chew, or split tablet. Given 11/21/2024 8:53 AM C DT 20 mEq Given 11/20/2024 5:52 PM CDT 20 mEq Given 11/20/2024 8:05 AM CDT 20 mEq predniSONE tablet 40 mg (Deltasone) 40 mg, oral, Daily, First dose on 11/19/24 at 1600, For 5 days Given 11/21/2024 8:53 AM CDT 40 mg Given 11/20/2024 8:06 AM CDT 40 mg Given 11/19/2024 4:32 PM CDT 40 mg rivaroxaban tablet 15 mg (Xarelto) 15 mg, oral, Daily with evening meal, First dose on 11/17/24 at 1700 Given 11/17/2024 5:39 PM CDT 15 mg rivaroxaban tablet 20 mg (Xarelto) 20 mg, oral, Daily with evening meal, First dose (after last modification) on 11/18/24 at 1700 Given 11/20/2024 5:52 PM CDT 20 mg Given 11/19/2024 4:35 PM CDT 20 mg Given 11/18/2024 5:21 PM CDT 20 mg sennosides-docusate sodium 8.6-50 mg per tablet 1 tablet (Senokot-S) 1 tablet, oral, Daily, First dose on 11/18/24 at 0900 Given 11/21/2024 8:53 AM CDT 1 tablet Given 11/20/2024 8:06 AM CDT 1 tablet Given 11/19/2024 10:10 AM CDT 1 tablet sertraline tablet 50 mg (Zoloft) 50 mg, oral, Daily, First dose on 11/18/24 at 0900 Given 11/21/2024 8:53 AM CDT 50 mg Given 11/20/2024 8:06 AM CDT 50 mg Given 11/19/2024 10:10 AM CDT 50 mg sodium chloride 0.9 % inhalation solution 3 mL 3 mL, nebulization, 4 times daily (RT), First dose on Tue11/19/24 at 1100 Given 11/21/2024 2:50 PM CDT 3 mL Given 11/21/2024 11:09 AM CDT 3 mL Given 11/21/2024 6:35 AM CDT 3 mL torsemide tablet 60 mg (Demadex) 60 mg, oral, Daily, First dose on Tue11/19/24 at 1530 Given 11/21/2024 8:53 AM CDT 60 mg Given 11/20/2024 8:05 AM CDT 60 mg Given 11/19/2024 3:31 PM CDT 60 mg vancomycin in dextrose 5 % IVPB 1,250 mg 1,250 mg (rounded from 1,333.5 mg = 15 mg/kg 88.9 kg), intravenous, at 167 mL/hr, Administer over 90 Minutes, Every 24 hours, First dose on Tue11/18/24 at 0900, Drug Monitoring Program: Pharmacist to adjust medication dosing based on indication and drug clearance factors., Indications: Respiratory tract infection, healthcare associatedIndications:Respirator y tract infection, healthcare associated New Bag 11/18/2024 11:11 AM CDT 1,250 mg 167 mL/hr vancomycin in dextrose 5 % IVPB 1,500 mg 1,500 mg, intravenous, at 200 mL/hr, Administer over 90 Minutes, Once, On 11/17/24 at 0847, For 1 dose, Drug Monitoring Program: Pharmacist to adjust medication dosing based on indication and drug clearance factors., Indications: Respiratory tract infection, healthcare associatedIndications:Respirator y tract infection, healthcare associated New Bag 11/17/2024 9:00 AM CDT 1,500 mg 200 mL/hr documented in this encounter Active and Recently Administered Medications Times are shown in CDT. Scheduled Medication Order 11/19/2024 11/20/2024 11/21/[address] tablet 10 mg (Dulcolax) 10 mg, oral, Daily, First dose on Tue11/18/24 at 0900, Swallow whole. Do NOT crush, chew, or split tablet. 1020 (Not Given - Provider: Og Kincaid R.N. - Reason: Contraindicated) 0821 (Given - Provider: Alysa Piper M.S.NAna, R.N.) 0852 (Given - Provider: Tracey Hargrove R.N.) budesonide 0.25 mg/2 mL nebulizer solution 0.25 mg (Pulmicort) 0.25 mg, nebulization, 2 times daily (RT), First dose on 11/17/24 at 1900, Rinse mouth with water after use to reduce aftertaste and incidence of candidiasis. Do not swallow. 1018 (Given - Provider: Og Kincaid R.N.)1838 (Given - Provider: Kera AmbrosioSAnaNAna, R.N.) 0650 (Given - Provider: Barbara Jameson R.N.)1828 (Given - Provider: Kera AmbrosioS.NAna, R.N.) 0635 (Given - Provider: Pilar ShabazzNAna) cefepime in dextrose (iso osm) IVPB 2 g (Maxipime) (COMPLETED) 2 g, intravenous, at 200 mL/hr, Administer over 30 Minutes, Every 24 hours, First dose on 11/18/24 at 0900, For 4 doses, Drug Monitoring Program: Pharmacist to adjust medication dosing based on indication and drug clearance factors., Indications: Respiratory tract infection, healthcare associated 1012 (New Bag - Provider: Og Kincaid R.N.) 0806 (New Bag - Provider: Alysa Piper M.S.NAna, R.N.) 0856 (New Bag - Provider: Tracey Hargrove R.N.) cholecalciferol (vitamin D3) tablet 25 mcg 25 mcg, oral, Daily, First dose on 11/18/24 at 0900, cholecalciferol (vitamin D3) orderable was interchanged for cholecalciferol (vitamin D3) tablet/capsule 1010 (Given - Provider: Og Kincaid R.N.) 0806 (Given - Provider: Alysa Piper M.S.NAna, R.N.) 0852 (Given - Provider: Tracey Hargrove R.N.) ferrous sulfate tablet 65 mg of iron (CANCELED) 65 mg of iron, oral, Daily with morning meal, First dose on Tue11/18/24 at 0800 1010 (Given - Provider: Og Kincaid R.N.) ferrous sulfate tablet 65 mg of iron 65 mg of iron, oral, Every other day, First dose (after last modification) on Tue11/21/24 at 0900 0853 (Given - Provider: Tracey Hargrove R.N.) finasteride tablet 5 mg (Proscar) 5 mg, oral, Daily, First dose on Tue11/18/24 at 0900, See tube feeding guidelines for tube feeding administration instructions. 1011 (Given - Provider: Og Kincaid R.N.) 0806 (Given - Provider: Alysa Piper, Julee.S.NAna, R.N.) 0853 (Given - Provider: Tracey Hargrove R.N.) fluticasone furoate-vilanteroL 100-25 mcg/actuation inhaler 1 puff (Breo Ellipta) 1 puff, inhalation, Daily (RT), First dose on Tue11/18/24 at 0800, Rinse mouth with water after [...] Remove inhaler from mouth. 7. Close lid. 1010 (Given - Provider: Og Kincaid R.N.) 0806 (Given - Provider: Alysa Piper, M.S.N., R.N.) 0852 (Given - Provider: Tracey Hargrove R.N.) furosemide injection 60 mg (Lasix) (CANCELED) 60 mg, intravenous, Every 24 hours scheduled, First dose on Tue11/18/24 at 0900, Adults: Doses less than 120 mg: IV push over 20 mg/minute. Doses 120 mg or greater: IVPB at 4 mg/minute. Peds/Neonates: Doses less than 120 mg over 0.5 mg/kg/minute. Doses 120 mg or greater: IVPB at 4 mg/minute 1010 (Given - Provider: Og Kincaid R.N.) 0803 (Given - Provider: Kera AmbrosioSAnaNAna, R.N.) ipratropium-albuteroL 0.5-2.5 mg/3 mL nebulizer solution 3 mL (DuoNeb) 3 mL, nebulization, 4 times daily (RT), First dose on Tue11/19/24 at 1100 1144 (Given - Provider: Og Kincaid R.N.)1531 (Given - Provider: Og Kincaid R.N.)1838 (Given - Provider: Kera AmbrosioS.N., R.N.) 0650 (Given - Provider: Pilar LuN.)1226 (Given - Provider: Kera AmbrosioS.N., R.N.)1507 (Given - Provider: Kera AmbrosioS.NAna, R.N.)1828 (Given - Provider: Kera AmbrosioS.NAna, R.N.) 0631 (Given - Provider: Aishwarya Marx RAnaN.)1109 (Given - Provider: Tracey Hargrove R.N.)1431 (Given - Provider: Tracey Hargrove RAnaN.) montelukast tablet 10 mg (Singulair) 10 mg, oral, Daily at bedtime, First dose on 11/17/24 at 2100 2002 (Given - Provider: Barbara Jameson RAnaN.) 2008 (Given - Provider: Celestina Dunn RAnaN.) vyvjdfhblevt-oujb-VD-Ca-m inerals 400 mcg (folic acid) tablet 1 tablet 1 tablet, oral, Daily, First dose on Tue11/18/24 at 0900 1010 (Given - Provider: Og Kincaid R.N.) 0805 (Given - Provider: Kera AmbrosioS.NAna, R.N.) 0853 (Given - Provider: Tracey E Hargrove, R.N.) pantoprazole DR tablet 40 mg (Protonix) 40 mg, oral, Daily before morning meal, First dose on 11/18/24 at 0700, pantoprazole 40 mg oral daily was interchanged for omeprazole 20 or 40 mg oral daily Swallow whole. Do NOT crush, chew, or split tablet. 0624 (Given - Provider: Barbara Jameson R.N.) 0646 (Given - Provider: Barbara Jameson R.N.) 0631 (Given - Provider: Aishwarya Marx R.N.) potassium chloride ER tablet 20 mEq 20 mEq, oral, 2 times daily with meals, First dose on 11/17/24 at 1700, potassium chloride orderable was interchanged for potassium chloride tablet/capsule Swallow whole. Do NOT crush, chew, or split tablet. 1009 (Given - Provider: Og Kincaid R.N.)1632 (Given - Provider: Og Kincaid R.N.) 0805 (Given - Provider: Julee Ambrosio.S.N., R.N.)1752 (Given - Provider: Julee Ambrosio.S.N., R.N.) 0853 (Given - Provider: Tracey Hargrove RAnaN.) predniSONE tablet 40 mg (Deltasone) 40 mg, oral, Daily, First dose on Tue11/19/24 at 1600, For 5 days 1632 (Given - Provider: Og Kincaid R.N.) 0806 (Given - Provider: Julee Ambrosio.S.N., R.N.) 0853 (Given - Provider: Pilar HuizarN.) rivaroxaban tablet 20 mg (Xarelto) 20 mg, oral, Daily with evening meal, First dose (after last modification) on 11/18/24 at 1700 1635 (Given - Provider: Og Kincaid R.N.) 1752 (Given - Provider: Julee Ambrosio.S.N., R.N.) sennosides-docusate sodium 8.6-50 mg per tablet 1 tablet (Senokot-S) 1 tablet, oral, Daily, First dose on 11/18/24 at 0900 1010 (Given - Provider: Og Kincaid R.N.) 0806 (Given - Provider: Kera AmbrosioSAnaNAna, R.N.) 0853 (Given - Provider: Pilar HuizarNAna) sertraline tablet 50 mg (Zoloft) 50 mg, oral, Daily, First dose on 11/18/24 at 0900 1010 (Given - Provider: Og Kincaid R.N.) 0806 (Given - Provider: Kera AmbrosioS.N., R.N.) 0853 (Given - Provider: Tracey Hargrove R.N.) sodium chloride 0.9 % inhalation solution 3 mL 3 mL, nebulization, 4 times daily (RT), First dose on Tue11/19/24 at 1100 1144 (Given - Provider: Og Kincaid R.N.)1531 (Given - Provider: Og Kincaid R.N.)1838 (Given - Provider: Kera AmbrosioS.N., R.N.) 0650 (Given - Provider: Barbara Jameson RAnaN.)1226 (Given - Provider: Kera AmbrosioS.N., R.N.)1507 (Given - Provider: Kera AmbrosioS.N., R.N.)1828 (Given - Provider: Kera AmbrosioS.N., R.N.) 0635 (Given - Provider: Aishwarya Marx R.N.)1109 (Given - Provider: Tracey Hargrove R.N.)1450 (Given - Provider: Kera CampoSAnaNAna, R.N.) torsemide tablet 60 mg (Demadex) 60 mg, oral, Daily, First dose on Tue11/19/24 at 1530 1531 (Given - Provider: Og Kincaid R.N.) 0805 (Given - Provider: Kera AmbrosioS.NAna, R.N.) 0853 (Given - Provider: Traceyruthie Hargrove R.N.) PRN Medication Order 11/19/2024 11/20/2024 11/21/2024 acetaminophen tablet 500 mg (TylenoL) 500 mg, oral, Every 6 hours PRN, mild pain or score 1-3 of 10, headaches, fever, Starting on 11/17/24 at 1514 alum-mag hydroxide-simeth 200-200-20 mg/5 mL suspension 30 mL (Maalox) 30 mL, oral, Every 6 hours PRN, indigestion, Starting on 11/17/24 at 1530 benzonatate capsule 200 mg (Tessalon Perles) 200 mg, oral, 3 times daily PRN, cough, Starting on 11/17/24 at 1514, Swallow whole. Do NOT crush, chew or open capsule. loperamide capsule 2 mg (Imodium A-D) 2 mg, oral, 3 times daily PRN, diarrhea, Starting on 11/17/24 at 1514, loperamide (IMODIUM A-D) orderable was interchanged for the loperamide (IMODIUM A-D) tablet/capsule magnesium hydroxide suspension 30 mL (Milk of Magnesia) 30 mL, oral, Bedtime PRN, constipation, indigestion, Starting on 11/17/24 at 1514 nitroglycerin SL tablet 0.4 mg (Nitrostat) 0.4 mg, sublingual, Every 5 min PRN, chest pain, Starting on 11/17/24 at 1514, May administer up to 3 doses per episode. Dissolve under the tongue. Do NOT crush, chew, split or swallow tablet. polyethylene glycol powder packet 1 packet (Miralax) 1 packet, oral, Daily PRN, constipation, Starting on 11/17/24 at 1514, Dissolve in 240 mLs (8 ounces) of water prior to giving. Avoid mixing with starch-based thickened liquids. documented in this encounter Additional Health Concerns Infection Onset Date Last Indicated Resolved Time COVID19 Pending 11/17/2024 11/17/2024 11/17/2024 8 :45 AM CDT COVID19 Pending 11/18/2024 11/18/2024 11/18/2024 7 :35 PM CDT documented as of this encounter Care Teams [employer] Press Set Up Operator Relationship Specialty Start Date End Date Elsewhere, Pcp PCP - General Family Medicine 01/16/18 documented as of this encounter
[2024-12-18 14:54] LABS: Albumin* 3.8 g/dL (3.3-5.0); Chloride* 95 mmol/L (96-114); Potassium* 4.8 mmol/L (3.6-5.1); Sodium* 133 mmol/L (135-149)
[2024-12-18 14:57] LABS: Anion Gap 7 mEq/L (7-15); Blood Urea Nitrogen* 33 mg/dL (7-30); Carbon Dioxide* 31 mmol/L (20-32); Creatinine* 1.3 mg/dL (0.5-1.5); Estimated Glomerular Filt Rate 53 ml/min
[2024-12-18 14:58] LABS: Calcium* 9.0 mg/dL (8.4-10.6); Glucose* 115 mg/dL (60-115)
--- OUTSIDE RECORDS SUMMARY | 2024-12-19 00:15 | XMS_ITS | Clinical Summary ---
Author Organization [facility] Address [address] [place] [address] Care Team Providers Care Dispatcher Maintenance Service Name Role Phone Unavailable Primary Care Provider Unavailabl e Allergies Active Allergy Reactions Criticality Noted Date Comments Rosuvastatin Myalgia 04/24/2020 Hydrocodone-Acetaminop hen Anxiety Low 12/08/2009 Levetiracetam Confusion 08/01/2012 confusion Bupivacaine Extrapyramidal Side Effect 07/28/2021 hiccups Oxycodone Anxiety Low 12/08/2009 Simvastatin Myalgia 11/08/2014 Other reaction(s): Muscle Pain (Myalgia) Medications VITAMIN D 2,000 UNIT CAP take one cap daily 0 9 Active VITAMINS A,C,I-VXHD-QZXVJB (OCUVITE PRESERVISION) 7,160-113-100 mpvr-ho-ikfj tablet Take 1 tablet by mouth once [...] Health Care Agent: Marie Perez Relationship:Spouse Phone: h)[phone] w)[phone] Secondary Health Care Agent: Zoraida Ling Relationship: Daughter Phone: h)[phone] c)[phone] Conservator: Jose Perez Relationship: Son Phone: c)[phone] Guardian: Relationship: Phone: Patient has Advance Care [...] Encounters Date Type Department Care Team Description 12/11/2024 Telephone [facility] [address] [place] [address] Vijay Lopez MD Medicare ANNUAL (subsequent) Visit 12/06/2024 Orders Only [facility] Scanner 1 scan: (1-Ord) [facility], CT CHEST W/O CONTRAST, 12/06/2024 11/01/2024 8:20 PM CDT Ancillary Procedure [facility] [address] [place] [phone] 11/01/2024 7:25 PM CDT Office Visit [facility] [address] [place] [phone] Mariella Lares PA Shortness Of Breath 11/01/2024 Travel 09/19/2024 Orders Only [facility] Scanner 1 scan: (1-Ord) INCOMING RECORDS-LABS, [facility], 09/19/2024 09/18/2024 Orders Only [facility] Scanner 1 scan: (1-Ord) INCOMING RECORDS-LABS, [facility], 09/18/2024 from Last 3 Months Immunizations Immunization Administration [...] History Relation Name Comments Heart Disease Father [place] x 2/had pac emaker Stroke Father Cancer [...] on file Legal Sex 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 Gender Identity Not on file Sexual Orientation Not on file Obstetrics History Last Filed Vital Signs Vital Sign Reading Time Taken Comments Blood Pressure 139/66 11/01/2024 7:33 PM CDT Pulse 73 11/01/2024 7:33 PM CDT Temperature 37.2 C (98.9 F) 11/01/2024 7:33 PM CDT Respiratory Rate 20 11/01/2024 7:33 PM CDT Oxygen Saturation 96% 11/01/2024 7:33 PM CDT Inhaled Oxygen Concentration - - Weight 89.4 kg (197 lb 3.2 oz) 09/10/2024 11:40 AM CDT Height 166.5 cm (5' 5.55) 09/10/2024 11:40 AM C DT Body Mass Index 32.27 09/10/2024 11:40 AM CDT Plan of Treatment Health Maintenance Due Date Last Done Comments RSV vaccine for adults or (1 - [...] 02/23/2011, 01/19/1996 Medical Devices Implanted Type Area Superintendent System Operation Device Identifier Shelf Expiration Date Model / Serial / Lot Standard Pacemaker Implanted:10/15 by Maverick Freitas MD (Quantity not on file) Standard Pacemaker [id number] / [id number] / Procedures Procedure Name Priority Date/Time Associated Diagnosis Comments SCAN-CT INTERPRETATION 12:00 AM CDT XR CHEST 2 VIEWS PA AND LATERAL STAT 11/01/2024 8:20 PM CDT SOB (shortness of breath) SCAN CORRESP-LABORATORY RESULTS 09/19/2024 12:00 AM CDT SCAN CORRESP-LABORATORY RESULTS 09/18/2024 12:00 AM CDT from Last 3 Months Results * SCAN-CT INTERPRETATION (12/06/2024 12:00 AM CDT) Anatomical Region Laterality Modality Other us Scanner OTHER Final Result * XR CHEST 2 VIEWS PA AND LATERAL (11/01/2024 8:20 PM CDT) Anatomical Region Laterality Modality CHEST, THORAX, Lung, HEART Compu les Radiography 11/01/2024 8:23 PM CDT Impressions 11/01/2024 8:23 PM CDT 1. Small lung volumes are noted with mild bibasilar atelectasis. Dictated by Aleksander Fitzgerald MD @ 11/01/2024 8:23:04 PM Dictated by: Aleksander Fitzgerald MD @ 11/01/2024 20:23:08 (Electronically Signed) Narrative 11/01/2024 8:23 PM CDT For Patients: As a result of the Cures Act, medical imaging exams and procedure reports are released immediately into your electronic medical record. You may view this report before your referring provider. If you have questions, please contact your health care provider. INDICATION: Shortness of breath TECHNIQUE: Chest radiograph 2 views COMPARISON: 07/08/2023 FINDINGS: The sensitivity and specificity of the exam are moderately limited by the patient`s body habitus. Mediastinum: The mediastinum is normal in appearance. The cardiac silhouette is at upper limits of normal in size. There is a left cardiac pacer present with leads in the right atrium and right ventricle. Lung: Small lung volumes are noted with mild bibasilar atelectasis. No sign of pleural effusion seen. No pneumothorax is identified. Bone and Soft tissue: Unremarkable for age. Procedure Note Aleksander Fitzgerald MD - 11/01/2024 For Patients: As a result of the Cures Act, medical imagingexams and procedure reports are released immediately into your electronicmedical record. You may view this report before your referring provider.If you have questions, please contact your health care provider. INDICATION: Shortness of breath TECHNIQUE: Chest radiograph 2 views COMPARISON: 07/08/2023 FINDINGS: The sensitivity and specificity of the exam are moderatelylimited by the patient`s body habitus. Mediastinum: The mediastinum is normal in appearance. The cardiacsilhouette is at upper limits of normal in size. There is a left cardiacpacer present with leads in the right atrium and right ventricle. Lung: Small lung volumes are noted with mild bibasilar atelectasis. Nosign of pleural effusion seen. No pneumothorax is identified. Bone and Soft tissue: Unremarkable for age. IMPRESSION: 1. Small lung volumes are noted with mild bibasilar atelectasis. Dictated by Aleksander Fitzgerald MD @ 11/01/2024 8:23:04 PM Dictated by: Aleksander Fitzgerald MD @ 11/01/2024 20:23:08 (Electronically Signed) us [facility] Final Result * SCAN CORRESP-LABORATORY RESULTS (09/19/2024 12:00 AM CDT) Only the most recent of2 resultswithin the time period is included. us Scanner OTHER Final Result from Last 3 Months Insurance * Guarantor: Marcos Perez Account Type Relation to Patient Date of Phone Billing Address Personal/Family Self [address] [place] [address] [place] [address] MEDICARE PART B HB ONLY MEDICARE PART A HB ONLY [employer] [place] BLUE HB ONLY [employer] [place] BLUE MR PB ONLY MEDICAID * Guarantor: Marcos Perez Account Type Relation to Patient Date of Phone Billing Address Personal/Family Self [address] [place] [address] [place] [address] MEDICARE PART B HB ONLY MR BC [place] Advance Directives Documents on File Type Date Recorded 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
--- OUTSIDE RECORDS SUMMARY | 2024-12-19 00:16 | XMS_ITS | Encounter Summary ---
Author Organization [facility] Address [address] [place] [address] Care Team Providers Care Bilingual Recruiter Name Role Phone Elsewhere, Pcp Primary Care Provider Unavailabl e Reason for Visit * Reason Onset Date Comments Med Question 11/21/2024 Encounter Details Date Type Department Care Team (Late st Contact Info) Description 11/21/2024 Clinical Communication [facility] [address] [place] [phone] Lenny Brown APRN, C.N.P., D.N.P. [address] [place] [phone] Med Question Social History Tobacco Use Types Packs/Day Years [...] daily living? Patient declined 11/17/2024 [facility] Utilities Answer Date Recorded In the past 12 months has [facility] electric, gas, oil, or water [place] threatened to shut off services in your home? Patient declined 11/17/2024 Housing Stability Answer Date Recorded What is your living situation today? I have a [facility] place to live 11/17/2024 Education Answer Date Recorded What is the highest level of school you have completed or the highest degree you have received? GED or equivalent 06/2019 Sex and Gender Information Value Date Recorded Sex Assigned at Male 07/19/2017 9:08 AM CDT Legal Sex Male 7:31 AM INTERNAL CONTROLS CONSULTANT Gender Identity Male 07/19/2017 9:08 AM CDT Sexual Orientation Straight 07/19/2017 9: 08 AM CDT Occupation Industry Job Start Date Job End Date Retired Not on file Not on file Not on file documented as of this encounter Miscellaneous Notes * Telephone Encounter - Lenny Brown APRN, C.N.P., D.N.P. - 11/21/2024 4:58 PM CDT Spoke with pharmacist and clarified medications and doses documented in this encounter Plan of Treatment Upcoming Encounters Date Type Department Care Team (Latest Contact Info) Description 01/04/2025 7:45 AM INTERNAL CONTROLS CONSULTANT Appointment Department of Radiology, [facility], in [place], [place] [address] [place] [phone] Blanco Spivey M.D. [address] [place] [phone] Discharge Disposition: Home or Self Care 01/04/2025 8:30 AM INTERNAL CONTROLS CONSULTANT Diagnostic Division of Pulmonary Medicine in [place], [place] [address] [place] [phone] Blanco Spivey M.D. [address] [place] [phone] 01/04/2025 12:30 PM INTERNAL CONTROLS CONSULTANT Office Visit Division of Pulmonary Medicine in [place], [place] [address] [place] [phone] Blanco Spivey M.D. [address] [place] [phone] 02/11/2025 10:15 AM INTERNAL CONTROLS CONSULTANT Clinical Communication Virtual Review in [place], [place] 200 [place] [phone] 02/12/2025 11:15 AM INTERNAL CONTROLS CONSULTANT Appointment Department of Radiology, [facility] in [place], [place] [address] [place] [phone] Lilli Moore M.D. [address] [place] [phone] 02/12/2025 11:50 AM INTERNAL CONTROLS CONSULTANT Appointment Department of Laboratory Medicine and Pathology, [facility], in [place], [place] [address] [place] [phone] Lilli Moore M.D. [address] [place] [address] 02/12/2025 1:30 PM INTERNAL CONTROLS CONSULTANT Office Visit Division of Pulmonary Medicine in [place], [place] [address] [place] [address] Lilli Moore M.D. [address] [place] [address] documented as of this encounter Visit Diagnoses Not on filedocumented in this encounter Care Teams Bilingual Recruiter Relationship Specialty Start Date End Date Elsewhere, Pcp PCP - General Family Medicine 01/16/18 documented as of this encounter
--- OUTSIDE RECORDS SUMMARY | 2024-12-19 00:16 | XMS_ITS | Encounter Summary ---
Author Organization [facility] Address [address] [place] [address] Care Team Providers Care Rod Tape Operator Name Role Phone Elsewhere, Pcp Primary Care Provider Unavailabl e Encounter Details Date Type Department Care Team (Late st Contact Info) Description 11/26/2024 Clinical Communication Division of Pulmonary Medicine in [place], [place] [address] [place] [phone] Lilli Moore M.D. [address] [place] [phone] Social History Tobacco Use Types Packs/Day Years [...] needed for daily living? Patient declined 11/17/2024 [facility] Utilities Answer Date Recorded In the past 12 months has [facility] electric, gas, oil, or water [facility] threatened to shut off services in your home? Patient declined 11/17/2024 Housing Stability Answer Date Recorded What is your living situation today? I have a [facility] place to live 11/17/2024 Education Answer Date Recorded What is the highest level of school you have completed or the highest degree you have received? GED or equivalent 06/2019 Sex and Gender Information Value Date Recorded Sex Assigned at Male 07/19/2017 9:08 AM CDT Legal Sex Male 7:31 AM KENNEL AIDE Gender Identity Male 07/19/2017 9:08 AM CDT Sexual Orientation Straight 07/19/2017 9: 08 AM CDT Occupation Industry Job Start Date Job End Date Retired Not on file Not on file Not on file documented as of this encounter Miscellaneous Notes * Telephone Encounter - Lilli Moore M.D. - 12/07/2024 3:42 PM CDT Patient readmitted for pneumonia. Moving up the patient's appointment in the clinic documented in this encounter Plan of Treatment Upcoming Encounters Date Type Department Care Team (Latest Contact Info) Description 01/04/2025 7:45 AM KENNEL AIDE Appointment Department of Radiology, [facility], in [place], [place] [address] [place] [phone] Blanco Spivey M.D. [address] [place] [phone] Discharge Disposition: Home or Self Care 01/04/2025 8:30 AM KENNEL AIDE Diagnostic Division of Pulmonary Medicine in [address] [phone] Blanco Spivey M.D. [address] [place] [phone] 01/04/2025 12:30 PM KENNEL AIDE Office Visit Division of Pulmonary Medicine in [place], [place] [address] [place] [phone] Blanco Spivey M.D. [address] [place] [phone] 02/11/2025 10:15 AM KENNEL AIDE Clinical Communication Virtual Review in [place], [place] 200 [place] [phone] 02/12/2025 11:15 AM KENNEL AIDE Appointment Department of Radiology, [facility], in [place], [place] [address] [place] [phone] Lilli Moore M.D. [address] [place] [phone] 02/12/2025 11:50 AM KENNEL AIDE Appointment Department of Laboratory Medicine and Pathology, [facility], in [address] [phone] Lilli Moore M.D. [address] [place] [phone] 02/12/2025 1:30 PM KENNEL AIDE Office Visit Division of Pulmonary Medicine in [place], [place] [address] [place] [address] Lilli Moore M.D. [address] [place] [address] documented as of this encounter Visit Diagnoses Not on filedocumented in this encounter Additional Health Concerns Infection Onset Date Last Indicated Resolved Time COVID19 Pending 12/06/2024 12/06/2024 12/06/2024 7 :24 PM CDT documented as of this encounter Care Teams Rod Tape Operator Relationship Specialty Start Date End Date Elsewhere, Pcp PCP - General Family Medicine 01/16/18 documented as of this encounter
--- OUTSIDE RECORDS SUMMARY | 2024-12-19 00:27 | XMS_ITS | Encounter Summary ---
Author Organization [facility] Address [address] [place] [address] Care Team Providers Care Cloth Stock Sorter Name Role Phone Elsewhere, Pcp Primary Care Provider Unavailabl e Reason for Visit * Reason Onset Date Comments Med Question 11/12/2024 Encounter Details Date Type Department Care Team (Late st Contact Info) Description 11/12/2024 Clinical Communication Division of Pulmonary Medicine in [place], [place] [address] [place] [phone] Lilli Moore M.D. [address] [place] [phone] Med Question Social History Tobacco Use Types [...] afraid of your partner or ex-partner? No 12/06/2024 Within the last year, have y ou been humiliated or emotionally abused in other ways by your partner or ex-partner? No Within the last year, have y ou been kicked, hit, slapped, or otherwise physically hurt by your partner or ex-partner? No 12/06/2024 Within the last year, have y ou been raped or forced to have any kind of sexual activity by your partner or ex-partner? No 12/06/2024 Hunger Vital Sign Answer Date Recorded Within the past 12 months, y ou worried that your food would run out before you got the money to buy more. Never true 12/07/19 25 Within the past 12 months, t he food you bought just didn't last and you didn't have money to get more. Never true 12/06/2024 PRAPARE - Transportation Answer Date Re corded In the past 12 months, has l ack of transportation kept you from medical appointments or from getting medications? No 11/15 In the past 12 months, has l ack of transportation kept you from meetings, work, or from getting things needed for daily living? No 12/06/2024 [facility] Utilities Answer Date Recorded In the past 12 months has [facility] electric, gas, oil, or water [place] threatened to shut off services in your home? No 12/06/2024 Housing Stability Answer Date Recorded What is your living situation today? I have a [facility] place to live 12/06/2024 Education Answer Date Recorded What is the highest level of school you have completed or the highest degree you have received? GED or equivalent 06/2019 Sex and Gender Information Value Date Recorded Sex Assigned at Male 07/19/2017 9:08 AM CDT Legal Sex Male 7:31 AM CONTROLLER REPAIRER AND TESTER Gender Identity Male 07/19/2017 9:08 AM CDT Sexual Orientation Straight 07/19/2017 9: 08 AM CDT Occupation Industry Job Start Date Job End Date Retired Not on file Not on file Not on file documented as of this encounter Plan of Treatment Upcoming Encounters Date Type Department Care Team (Latest Contact Info) Description 01/04/2025 7:45 AM CONTROLLER REPAIRER AND TESTER Appointment Department of Radiology, [facility], in [place], [place] 200 [place] [address] Blanco Spivey M.D. 200 [place] [phone] Discharge Disposition: Home or Self Care 01/04/2025 8:30 AM CONTROLLER REPAIRER AND TESTER Diagnostic Division of Pulmonary Medicine in [place], [place] [address] [place] [phone] Blanco Spivey M.D. [address] [place] [phone] 01/04/2025 12:30 PM CONTROLLER REPAIRER AND TESTER Office Visit Division of Pulmonary Medicine in [place], [place] [address] [place] [phone] Blanco Spivey M.D. [address] [place] [phone] 02/11/2025 10:15 AM CONTROLLER REPAIRER AND TESTER Clinical Communication Virtual Review in [place], [place] 200 [place] [address] 02/12/2025 11:15 AM CONTROLLER REPAIRER AND TESTER Appointment Department of Radiology, [facility] in [place], [place] [address] [place] [phone] Lilli Moore M.D. [address] [place] [phone] 02/12/2025 11:50 AM CONTROLLER REPAIRER AND TESTER Appointment Department of Laboratory Medicine and Pathology, [facility] in [place], [place] [address] [place] [phone] Lilli Moore M.D. [address] [place] [phone] 02/12/2025 1:30 PM CONTROLLER REPAIRER AND TESTER Office Visit Division of Pulmonary Medicine in [place], [place] [address] [place] [phone] Lilli Moore M.D. [address] [place] [phone] documented as of this encounter Visit Diagnoses Not on filedocumented in this encounter Additional Health Concerns Infection Onset Date Last Indicated Resolved Time COVID19 Pending 11/17/2024 11/17/2024 11/17/2024 8 :45 AM CDT COVID19 Pending 11/18/2024 11/18/2024 11/18/2024 7 :35 PM CDT COVID19 Pending 12/06/2024 12/06/2024 12/06/2024 7 :24 PM CDT documented as of this encounter Care Teams Cloth Stock Sorter Relationship Specialty Start Date End Date Elsewhere, Pcp PCP - General Family Medicine 01/16/18 documented as of this encounter
--- OUTSIDE RECORDS SUMMARY | 2024-12-19 00:27 | XMS_ITS | Encounter Summary ---
Author Organization [facility] Address [address] [place] [id number] Care Team Providers Care Corporate Fitness Program Coordinator Name Role Phone Elsewhere, Pcp Primary Care Provider Unavailabl e Reason for Visit * Reason Onset Date Comments Symptom Question 11/09/2024 Encounter Details Date Type Department Care Team (Latest Contact Info) Description 11/09/2024 Clinical Communication Division of Pulmonary Medicine in [place], [place] [address] [place] [phone] Lilli Moore M.D. [address] [place] [phone] Symptom Question Social History Tobacco Use Types Packs/Day [...] things needed for daily living? No 11/09/2024 [facility] Utilities Answer Date Recorded In the past 12 months has [facility] electric, gas, oil, or water Booster threatened to shut off services in your home? No 11/09/2024 Housing Stability Answer Date Recorded What is your living situation today? I have a [facility] place to live 11/09/2024 Education Answer Date Recorded What is the highest level of school you have completed or the highest degree you have received? GED or equivalent 06/2019 Sex and Gender Information Value Date Recorded Sex Assigned at Male 07/19/2017 9:08 AM CDT Legal Sex Male 7:31 AM IT OPERATIONS ANALYST Gender Identity Male 07/19/2017 9:08 AM CDT Sexual Orientation Straight 07/19/2017 9: 08 AM CDT Occupation Industry Job Start Date Job End Date Retired Not on file Not on file Not on file documented as of this encounter Miscellaneous Notes * Telephone Encounter - Meghan Quintero R.N. - 11/09/2024 10:19 AM CDT Patient feels tired, but it is slightly easier to breathe. Patient is compliant with CPAP at night.He's room air at rest and 2L NC with activity. His oxygen saturations range from 94-99%. At the time of the call, NIKUNJ Gross from [facility] came into the room and listened to the patient's lungs. She stated he's 2 days off the Prednisone and his lung ross sound clear like they did on Tuesday. Chest x-rays were negative for acute respiratory illness last week after an urgent care visit. Theymentioned he was in an acute asthma exacerbation. Thoughts are extending Prednisone. Request to send Rx to [facility] in [place], [place]. There's concern also about CHF. He is on the lowest sodium diet as possible while in assisted living. Ginny states there's slight pitting edema on his lower extremities. They will try an extra torsemide dose. Addendum: Dr. Palencia recommends ER visit. Nursing relayed those recommendations and the daughter,Zoraida, agrees. She appreciates the call and agrees to the updated plan of care. * Telephone Encounter - Mary Sears - 11/09/2024 9:12 AM CDT Pulmonary Note: Call Message Caller: Family Member: Daughter Preferred contact: Authorized: Yes Diagnosis: #1 Asthma Severe (HCC) #2 Chronic Diastolic (Congestive) Heart Failure (HCC) #3 Dyspnea Last Appointment: 06/08/24 Message: Patient's daughter called in because the patient has been having issues breathing. He wentto urgent care last Tuesday and was given 40 mg of Prednisone which helped. Now he has been off of it and is having labored breathing. She is wondering if they should try Urgent Care again or the ER in [place]? He has also been using his oxygen a lot more but is still having labored breathing. He has also felt more tired. Action Requested: Please advise patient and daughter about next steps or if they need to go to the ER. Additional Notes: The patient is in an assisted living home. documented in this encounter Plan of Treatment Upcoming Encounters Date Type Department Care Team (Latest Contact Info) Description 01/04/2025 7:45 AM IT OPERATIONS ANALYST Appointment Department of Radiology, [facility] in [place], [place] [address] [place] [phone] Blanco Spivey M.D. [address] [place] [phone] Discharge Disposition: Home or Self Care 01/04/2025 8:30 AM IT OPERATIONS ANALYST Diagnostic Division of Pulmonary Medicine in [place], [place] [address] [place] [phone] Blanco Spivey M.D. [address] [place] [phone] 01/04/2025 12:30 PM IT OPERATIONS ANALYST Office Visit Division of Pulmonary Medicine in [place], [place] [address] [place] [phone] Blanco Spivey M.D. [address] [place] [phone] 02/11/2025 10:15 AM IT OPERATIONS ANALYST Clinical Communication Virtual Review in [place], [place] 200 [place] [phone] 02/12/2025 11:15 AM IT OPERATIONS ANALYST Appointment Department of Radiology, [facility], in [place], [place] [address] [place] [phone] Lilli Moore M.D. [address] [place] [phone] 02/12/2025 11:50 AM IT OPERATIONS ANALYST Appointment Department of Laboratory Medicine and Pathology, [facility], in [place], [place] [address] [place] [phone] Lilli Moore M.D. [address] [place] [phone] 02/12/2025 1:30 PM IT OPERATIONS ANALYST Office Visit Division of Pulmonary Medicine in [place], [place] [address] [place] [phone] Lilli Moore M.D. [address] [place] [phone] documented as of this encounter Visit Diagnoses Not on filedocumented in this encounter Care Teams Corporate Fitness Program Coordinator Relationship Specialty Start Date End Date Elsewhere, Pcp PCP - General Family Medicine 01/16/18 documented as of this encounter
--- OUTSIDE RECORDS SUMMARY | 2024-12-19 00:27 | XMS_ITS | Encounter Summary ---
Author Organization [facility] Address [address] [place] [phone] Care Team Providers Care Technical Service Representative Name Role Phone Elsewhere, Pcp Primary Care Provider Unavailabl e Reason for Visit * Reason Onset Date Comments Med Refill 11/14/2024 Encounter Details Date Type Department Care Team (Late st Contact Info) Description 11/14/2024 Refill Division of Pulmonary Medicine in [place], [place] [address] [place] [phone] Lilli Moore M.D. [address] [place] [phone] Med Refill Social History Tobacco Use Types Packs/Day Years [...] needed for daily living? Patient declined 11/17/2024 [facility] Utilities Answer Date Recorded In the past 12 months has e electric, gas, oil, or water company threatened to shut off services in your home? Patient declined 11/17/2024 Housing Stability Answer Date Recorded What is your living situation today? I have a [facility] place to live 11/17/2024 Education Answer Date Recorded What is the highest level of school you have completed or the highest degree you have received? GED or equivalent 06/2019 Sex and Gender Information Value Date Recorded Sex Assigned at Male 07/19/2017 9:08 AM CDT Legal Sex Male 7:31 AM INSPECTOR STRUCTURAL BONDING Gender Identity Male 07/19/2017 9:08 AM CDT Sexual Orientation Straight 07/19/2017 9: 08 AM CDT Occupation Industry Job Start Date Job End Date Retired Not on file Not on file Not on file documented as of this encounter Plan of Treatment Upcoming Encounters Date Type Department Care Team (Latest Contact Info) Description 01/04/2025 7:45 AM INSPECTOR STRUCTURAL BONDING Appointment Department of Radiology, [facility], in [place], [place] 200 [place] [address] Blanco Spivey M.D. [address] [place] [phone] Discharge Disposition: Home or Self Care 01/04/2025 8:30 AM INSPECTOR STRUCTURAL BONDING Diagnostic Division of Pulmonary Medicine in [place], [place] [address] [place] [phone] Blanco Spivey M.D. [address] [place] [phone] 01/04/2025 12:30 PM INSPECTOR STRUCTURAL BONDING Office Visit Division of Pulmonary Medicine in [place], [place] [address] [place] [phone] Blanco Spivey M.D. [address] [place] [phone] 02/11/2025 10:15 AM INSPECTOR STRUCTURAL BONDING Clinical Communication Virtual Review in [place], [place] 200 [place] [phone] 02/12/2025 11:15 AM INSPECTOR STRUCTURAL BONDING Appointment Department of Radiology, [facility] in [place], [place] [address] [place] [phone] Lilli Moore M.D. [address] [place] [phone] 02/12/2025 11:50 AM INSPECTOR STRUCTURAL BONDING Appointment Department of Laboratory Medicine and Pathology, [facility] in [place], [place] [address] [place] [phone] Lilli Moore M.D. [address] [place] [phone] 02/12/2025 1:30 PM INSPECTOR STRUCTURAL BONDING Office Visit Division of Pulmonary Medicine in [place], [place] [address] [place] [phone] Lilli Moore M.D. [address] [place] [phone] documented as of this encounter Visit Diagnoses Not on filedocumented in this encounter Additional Health Concerns Infection Onset Date Last Indicated Resolved Time COVID19 Pending 11/17/2024 11/17/2024 11/17/2024 8 :45 AM CDT COVID19 Pending 11/18/2024 11/18/2024 11/18/2024 7 :35 PM CDT documented as of this encounter Care Teams Technical Service Representative Relationship Specialty Start Date End Date Elsewhere, Pcp PCP - General Family Medicine 01/16/18 documented as of this encounter
== END 2024-12-18 13:45 | disposition home or self-care (01) ==
LOC: NPINS 13:44
PROVIDERS: PCP Surgery; Visit Provider Nurse Practitioner Gerontology
DX: R94.4 Abnormal results of kidney function studies (principal)
CPT/HCPCS: 80048; 80069; 83735

== ENCOUNTER 2025-01-22 11:35 | Outpatient (REF) | payer MEDICARE, BC, SELFPAY ==
--- OUTSIDE RECORDS SUMMARY | 2024-12-06 11:50 | XMS_ITS | Encounter Summary ---
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 [address] [place] [address] Phone: tel: fax: [facility] Referral IDStatusReasonStart DateExpiration DateVisits RequestedVisits [id number]/27/20251/27/202711 * Outpatient (Routine) - ClosedSpecialtyDiagnoses / ProceduresReferred By ContactReferred To ContactPulmonary Medicine Blanco Spivey M.D. [address] [place] [address] Phone: tel: fax: Blanco Spivey M.D. [address] [place] [phone] Phone: tel: fax: Referral IDStatusReasonStart DateExpiration DateVisits RequestedVisits [id number]/27/20254/ Scheduling Instructions Schedule on Thursday 01/04 at 12:30pm- Per Dr. Spivey Reason for Visit * ReasonCommentsFeverShortness of Breath Encounter Details DateTypeDepartmentCare Team (Latest Contact Info)Vyrwashowbw23/23/2025 12:50 PM CDT - 12/10/2024 3:14 PM CDTHospital Encounter [facility] [address] [place] [phone] Sharona Osborne M.D. [address] [place] [phone] Kayode Peña M.D. [address] [place] [phone] Justin Acosta Jr., M.D. 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) (Primary Dx); Sepsis (HCC); Dysphagia Oropharyngeal Phase [R13.12]; Apnea Sleep Obstructive; Elevated Creatinine; Decline Functional Status [R53.81] Discharge Disposition: Home or Self Care Social History Tobacco UseTypesPacks/DayYears UsedDateSmoking Tobacco: WcbfcxFnnnupbubv780 02/15/1956 - 02/14/1966Smokeless Tobacco: FormerChewQuit: 02/14/1966Alcohol Use Standard Drinks/WeekCommentsNo0 (1 standard drink = 0.6 oz pure alcohol) Humiliation, Afraid, Rape, and Kick questionnaireAnswerDate RecordedWithin the last year, have you been afraid of your partner or ex-partner?No12/06/2024Within the last year, have you been humiliated or emotionally abused in other ways by your partner or ex-partner?No12/06/2024Within the last year, have you been kicked, hit, slapped, or otherwise physically hurt by your partner or ex-partner?No12/06/2024Within the last year, have you been raped or forced to have any kind of sexual activity by your partner or ex-partner?No12/06/2024 Hunger Vital SignAnswerDate RecordedWithin the past 12 months, you worried that your food would run out before you got the money to buymore.Never true12/06/2024 Within the past 12 months, the food you bought just didn't last and you didn't have money to get more.Never true12/06/2024PRAPARE - TransportationAnswerDate RecordedIn the past 12 months, has lack of transportation kept you from medical appointments or from getting medications?No12/06/2024In the past 12 months, has lack of transportation kept you from meetings, work, or from getting things needed for daily living?No12/06/2024HC UtilitiesAnswerDate RecordedIn the past 12 months has the [employer], gas, oil, or water company threatened to shut off services in your home?No12/06/2024Housing StabilityAnswerDate RecordedWhat is your living situation today?I have a steady place to live12/06/2024Education AnswerDate RecordedWhat is the highest level of school you have completed or the highest degree you have received?GED or npobjtgscz84/05/2020Sex and Gender InformationValueDate RecordedSex Assigned at [employer]irs[employer]20/05/2018 9:08 AM CDT Legal JbkPgyn2203/18/2016 7:31 AM CSTGender NdiqseydWpji96/05/2018 9:08 AM CDT Sexual EcfvyamizitWewbyjnt08/05/2018 9:08 AM CDTOccupationIndustryJob Start Date Job End DateRetiredNot on fileNot on fileNot on filedocumented as of this encounter Last Filed Vital Signs Vital SignReadingTime TakenCommentsBlood Vuxvktee438/6110 2:22 PM CDT Htqha943512/10/2024 2:22 PM SHJEndrqghvchy72.7 ??C (98.1 ??F)12/10/2024 2:22 PM CDTRespiratory Azxg1669 2:22 PM CDTOxygen Wankgghirq82%12/10/2024 2:22 PM CDTInhaled Oxygen Concentration--Lmbthg56.9 kg (187 lb 2.7 oz)12/09/2024 2:40 PM UVRAsvlzs131.6 cm (5' 5.98)12/06/2024 8:12 PM CDTBody Mass Index30.22 12/06/2024 8:12 PM CDTdocumented in this encounter Discharge Summaries * Nicole Burden M.D. - 12/10/2024 7:19 AM CDT DISCHARGE SUMMARY BRIEF OVERVIEW Hospital: [facility] Discharge Provider: Justin Acosta Jr., M.D. 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 Additional pulmonology follow-up is being arranged. Steroid taper: He was initiated on a new steroid taper during this admission. He should continue totaper by 20 mg weekly and remain on 20mg until his follow-up appointment in pulmonary medicine clinic. Please monitor closely for any signs of adrenal insufficiency or suppression of the HPA axis since he has required multiple courses of steroids for treatment. PJP prophylaxis (Bactrim) should be continued. Elevated creatinine: Patient did have a slightly elevated creatinine, though not consistent with anAKI during hospitalization. Please follow-up renal function, scheduled prior to discharge.Though note that it would be expected for a slight creatinine elevation ISO Bactrim treatment. Please see medication changes in patient recommendations below. Rivaroxaban dose adjustement: The dose was reduced from 20mg to 15mg due to CrCl <50. Please follow-up his renal function at follow-up visit and dose adjust rivaroxaban as appropriate. Diuretic monitoring: Please f/u BMP, Mg, Phos and renal function as his torsemide was restarted on discharge within 1 week. His weight at time of discharge was 84.9 kg. Note that he was continued on his home torsemide at time of discharge. Please obtain a weight at time of return to [facility] for monitoring of diuresis. Hematuria: Patient was noted to have hematuria on UA. Please repeat a urinalysis in approximately 6-8 weeks (around 01/21) to confirm this has resolved. Medication changes Started Doxycycline, for 1 dose on the evening of 12/10. Bactrim single-strength daily Stopped None Changed Prednisone to 60 mg, tapering by 20 mg every . Continue 20mg follow-up with Dr. Spivey. Follow-up Future Appointments 02/11/2025 10:15 AM RST PUL SLM INTAKE VISIT Virtual Review in [place], [place] 02/12/2025 11:15 AM DX ROCH 02 RM 208 CHEST Department of Radiology, [facility], in [place], [place] 02/12/2025 11:50 AM LAB BLOOD ROJASI CL C Department of Laboratory Medicine and Pathology, [place], [place] 02/12/2025 1:30 PM Lilli Moore M.D. Division of Pulmonary Medicine in [place], [place] OUTPATIENT FOLLOW UP Scheduled Appointments 02/11/2025 10:15 AM RST PUL SLM INTAKE VISIT Admitting/Central Scheduling 02/12/2025 11:15 AM DX ROCH 02 RM 208 CHEST Radiology 02/12/2025 11:50 AM LAB BLOOD ROJASI CL C Laboratory Medicine 02/12/2025 1:30 PM Lilli Moore M.D. Pulmonary Medicine For appointment details refer to your Patient Appointment Guide. TEST RESULTS PENDING AT DISCHARGE Pending Labs Order Current Status Telomere Length Measurement by Flow Cytometry and FISH (flowFISH) - Sent Out Lab Collected (12/10/2423) Bacteria / Theresa Culture, Blood # 2 Preliminary result Bacteria / Theresa Culture, Blood #1 Preliminary result DETAILS OF HOSPITAL STAY REASON FOR ADMISSION Sepsis (HCC) HOSPITAL COURSE is a 89 y.o. with PMH of recent hospitalization for pneumonia and eosinophilic asthma hospitalized for pneumonia Co-morbid conditions: atrial fibrillation on Xarelto, DANAE, hyperlipidemia, GERD, progression, prolonged QT syndrome, HFpEF (EF 53% on 09/12/23) complete heart block s/p pacemaker 1998, mild CAD and NSTEMI 2018 with no stents Events Leading to Hospitalization: He reports dyspnea on wakening with fever to 103.7 at his assisted living facility and was requiring supplemental oxygen at rest. Given his recent admissions for pneumonia, he presented to the emergency department for further evaluation. ED Course: In the ED, laboratory workup was remarkable for lactate of 2.4, leukocytosis to 17.6. CT chest without IV contrast was obtained and demonstrated decreased patchy ground-glass opacities in the upper lobes with persistent micro nodularity and ground-glass opacities in the lung bases suggestive of improving infectious/inflammatory process versus waxing/waning of patient's ILD. Blood cultures were obtained, he was given 1 dose cefepime, and admitted to pulmonology for further management. [facility] Pulmonary Medicine [facility] The patient was stable on transfer to the pulmonary medicine service. ILD with likely exacerbation Due concern for likely ILD flare as primary etiology, he was initiated on a prednisone taper starting at 60 mg on 12/07 with significant improvement in symptoms. He was instructed to continue his steroid taper at time of discharge and to continue on 20mg until follow-up. He was initiated on Bactrimfor PJP prophylaxis, and was recommended to continue his PPI as well as vitamin-D while on this taper. He was also provided with gentle diuresis to improve his respiratory status. It was felt that his asthma was well controlled and not contributing to his respiratory status. Possible pneumonia, UTI Infectious workup was notable for -1 3 beta D glucan, as well as 10-100k CFUs of E coli. Other infectious workup was negative at time of discharge. Given his nonspecific symptoms and uncertain diagnosis, he was treated with a 5 day course of antibiotics for community-acquired pneumonia (ceftriaxoneand doxycycline) with concurrent coverage of E coli UTI. He was evaluated by CAPABILITY LEAD, who diagnosed himwith mild moderate oropharyngeal dysphagia. He was prescribed a regular diet with chin tuck. Elevated creatinine He had a mildly elevated creatinine, though not to the level of a stage I DENITA. This required dose reduction of rivaroxaban to 15mg, and should be followed-up in the outpatient setting with renal function testing and dose adjustments back to 20mg as appropriate. He was continued on his home diuretics at time of discharge. He was discharged to Assisted Living on 12/10/24 in good condition. He was scheduled for outpatientappointment with PCP and his primary mortar maker for further workup. CONSULTS ORDERED DURING THIS ADMISSION IP CONSULT TO CARE MANAGEMENT IP CONSULT TO CARE MANAGEMENT IP CONSULT TO SILK BLOCKER WOUND CARE CONDITION AT DISCHARGE stable Discharge instructions were provided to the patient and caregiver(s). Total time spent in discharge services today: 40 minutes. Cosigned by Justin Acosta Jr., M.D. at 12/10/2024 6:31 PM CDT Associated attestation - Justin Acosta Jr., M.D. - 12/10/2024 6:31 PM CDT I saw and evaluated the patient, participating in the ahmlin portions of the service. I reviewed Dr. Nicole Burden M.D.'s note and I agree with her findings and plan. documented in this encounter Discharge Instructions * Discharge Instructions* Nicole Burden M.D. - 12/07/2024 8:06 AM CDT You were discharged from the [facility] Pulmonary Medicine Hospital Service. Please identify this service name if you call with questions after your hospitalization. 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 During this hospital stay, we treated you with antibiotics and initiated you on a new prednisone steroid taper. The definitive diagnosis at this time is unclear, however you shouldfollow up with your primary mortar maker for further evaluation. Some educational materials have been provided for your reading. You should also discuss this with your primary care physician after you are discharged from the hospital. Additionally, we have arranged follow-up visits and listed yourmedication changes as below: Instructions for Patients Please take the prescribed medications as detailed below Please attend all outpatient appointments detailed below Please monitor closely for any nausea, vomiting, dizziness, lightheadedness, or general malaise once you discontinue your steroid taper. If you experience these symptoms you should present to the emergency room immediately for evaluation. Please continue to take Bactrim while you are on high dose steroids We are requesting follow up with your primary mortar maker, though this may not be scheduled at time of discharge. If not yet arranged please see your PCP within 7-10 days to discuss this admission FOLLOW-UP: Future Appointments 02/11/2025 10:15 AM RST PUL SLM INTAKE VISIT Virtual Review in [place], [place] 02/12/2025 11:15 AM DX ROCH 02 RM 208 CHEST Department of Radiology, [place], [place] 02/12/2025 11:50 AM LAB BLOOD ROJASI CL C Department of Laboratory Medicine and Pathology, [place], [place] 02/12/2025 1:30 PM Lilli Moore M.D. Division of Pulmonary Medicine in [place], [place] Medication changes Started Bactrim SS Tablet, once daily for protection from lung infection while on steroids greater than 20 mg Doxycycline 100 mg. Please take 1 tablet the evening of complete your course of antibiotics. Stopped None Changed Prednisone 60 mg, this medication will be tapered by 20 mg weekly on starting on 12/13. Continue 20mg follow-up with Dr. Spivey. * Attachments The following attachments cannot be sent through Care Everywhere. * Doxycycline (By mouth) (Italian) * Prednisone (By mouth) (Italian) * Sulfamethoxazole/Trimethoprim (By mouth) (Italian) documented in this encounter Medications at Time of Discharge MedicationSigDispense QuantityRefillsLast FilledStart DateEnd Date acetaminophen (TylenoL) 500 mg tablet Take 1,000 mg by mouth 2 (two) times a day as needed for pain.05/17/2024 benzonatate (Tessalon) 200 mg capsule Take 200 mg by mouth 3 (three) times a day as needed.10/04/2023 bisacodyL (Dulcolax) 5 mg EC tablet Take 2 tablets (10 mg total) by mouth daily. 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 Inject 600 mg under the skin once. Start 300 mg under the skin every 2 weeks 14 days after the 600 mg injection. 6 mL ferrous sulfate 325 mg (65 mg iron) tablet Take 1 tablet (65 mg of iron total) by mouth every other day. 15 tablet 05/12/2023 finasteride (PROSCAR) 5 mg tablet Take 5 mg by mouth daily. fluticasone furoate-vilanteroL (Breo Ellipta) 100-25 mcg/actuation inhaler Inhale 1 puff once daily. 60 each ipratropium-albuteroL (DuoNeb) 0.5-2.5 mg/3 mL nebulizer solution Inhale 3 mL by nebulization 4 (four) times a day. 180 mL montelukast (SINGULAIR) 10 mg tablet Take 10 mg by mouth at bedtime.11/16/2019 dzpvrfftvvto-mnkk-TF-Ca-minerals 400 mcg (folic acid) tablet Take 1 tablet by mouth daily.11/22/2024 nitroglycerin (Nitrostat) 0.[address] 0.4 mg under the tongue every 5 (five) minutes as needed.03/01/2024 omeprazole (PriLOSEC) [address] capsule Take 20 mg by mouth every morning before breakfast.12/04/2021 rivaroxaban (Xarelto) 15 mg tablet Take 1 tablet (15 mg total) by mouth daily with evening meal. 30 tablet 12/10/2024 sennosides (senna) 8.6 mg tablet Take 8.6 mg by mouth at bedtime as needed for constipation. sertraline (ZOLOFT) 50 mg tablet Take 50 mg by mouth daily.12/04/2021 doxycycline monohydrate (Avidoxy) 100 mg tablet Indications:Respiratory tract infection, community acquiredTake 1 tablet (100 mg total) by mouth daily after evening meal for 1 dose Indications: Respiratory t ract infection, community acquired. 1 tablet Dupixent Syringe 300 mg/2 mL injection Inject 300 mg under the skin every 14 (fourteen) days. potassium chloride (KLOR-CON M) 10 mEq ER tablet Take 20 mEq by mouth 2 (two) times a day with meals. predniSONE (Deltasone) 10 mg tablet Take 20 mg by mouth daily. predniSONE (Deltasone) 20 mg tablet Take 3 tablets (60 mg total) by mouth daily for 3 days, THEN 2 tablets (40 mg total) daily for 7 days, THEN 1 tablet (20 mg total) daily for 21 days. 44 tablet sulfamethoxazole-trimethoprim (Bactrim) 400-80 mg per tablet Indications:Prophylaxis, medicalTake 1 tablet by mouth daily Indications: Prophylaxis, medical. 30 tablet torsemide (Demadex) 20 mg tablet Take 3 tablets by mouth daily. torsemide 60 mg tablet Take 60 mg by mouth daily for 30 days. 60 tablet documented as of this encounter Progress Notes * Libby Morataya R.N. - 12/10/2024 8:34 AM CDT Images from the original note were not included. SUBJECTIVE health care marketing manager following for discharge planning needs. OBJECTIVE Anticipated Needs Anticipated Needs Functional Status: Housekeeping, Shopping, Transportation use (drive car, use taxi/bus), Meal preparation, Medication set-up/administration, Bathing Assistive Devices: None Anticipated Modifications to the Patient's Home: None Transportation Needs: Support from family Does the patient need discharge transport arranged?: No Anticipated Discharge Destination: [facility] Patient is hospitalized on [address] in room 332. Patient/family are understanding and accepting of the discharge plan as described below. ASSESSMENT / PLAN Assessment Those noted above appear to have insight into the patient's needs at this time and are planning appropriately for discharge needs. They report agreement with the below plan with no further questions at this time. No barriers identified at this time. Plan Patient is being prepared to discharge on 12/10/2024 at 1200 PM. Transportation will be provided bypatient's daughter. 1) Patient's Anticipated Discharge Destination: Anticipated Discharge Destination: [facility] Facility Destination: Assisted Living Destination - Admitted Since 12/06/2024 Service Provider Request Status Services Address Phone Fax Patient [facility]erred [facility] [address] [facility] [phone] -- Contact: (Mady) Patient was receiving the following care: Assistance with bathing, medication management, CPAP and oxygen. Recently (last two weeks) has been needing more morning help with getting dressed and hygiene. Receives all meals from facility Patient cannot return on weekend. Patient needs to be back by 2:00 PM . Additional equipment needed for return: NA Patient cannot return if needing two assist or IV antibiotics. COVID screening needed before patient can [...] - Provide written prescriptions for all narcotics. 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 The patient appear(s) to have an understanding of this. -Will continue to follow and assist if needs arise. 2) Oxygen Reconnect: Durable Medical Equipment - Admitted Since 12/06/2024 Service Provider Services Address Phone Fax Patient Preferred [facility] Durable Medical Equipment [address], [place] [phone] -- Contact: intake Respiratory Equipment : POC and concentrator Oxygen provider reports patient's current orders are for 2 liters conserving NURSING: - Arrange transportation oxygen tank if needed. - If new oxygen requirements are needed, assist primary service with new prescription and fax to provider. PRIMARY SERVICE: - Complete and sign new oxygen prescription if needed. 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 The patient appear(s) to have an understanding of this. -Will continue to follow and assist if needs arise. Libby Morataya R.N. 12/10/2024 * Navjot Antunez, Pharm.D., R.Ph. - 12/10/2024 7:05 AM CDT Pharmacist Progress Note Reason for admission: fever, concern for respiratory infection. Recent admission (11/16-11/21) for pneumonia treated with IV antibiotics and steroids. PMH: a-fib on Xarelto, DANAE, eosinophilic asthma, HLD, GERD, prolonged QT syndrome, HFpEF, complete heart block s/p PPM 1998, mild CAD with NSTEMI 2018 OBJECTIVE Home medications: per [facility] Held: montelukast, KCl, torsemide, Dupixent, DuoNebs Changed: rivaroxaban renally dosed, PPI interchange, tylenol reduced VTE prophylaxis: rivaroxaban Estimated Creatinine Clearance: 45.3 mL/min (by C-G formula based on SCr of 1.15 mg/dL). ASSESSMENT / PLAN Fever, concern for pulmonary infection, recent admit for pneumonia. PNA resp panel neg. Blood cx NGTD. Completed 5 days ceftriaxone 12/10. Doxycycline x 5 days. EOT 12/11 Prednisone 60 mg/day with planned taper. PPI interchanged as PPX. Continue home Breo, Pulmicort. Recommend resume home montelukast. E coli growing E coli 10-100,000, contreras sensitive. Ceftriaxone per above. Renal - SCr 1.15, CrCl 45. Holding torsemide, KCl Rivaroxaban dose decreased to 15 mg qpm due to CrCl < 50. Navjot Chris, Pharm.D., R.Ph. * Kellie Guardado R.R.T., L.R.T. - 12/10/2024 6:07 AM CDT 12/09/242134 BPAP/CPAP Therapy BPAP/CPAP Interface Full face mask BPAP/CPAP Interface Size Medium Patient's Own Equipment Mask;Tubing;CPAP;Equipment inspected (per site policy) Ventilator Parameters O2 Flow Rate 2 L/min NPPV EPAP (CPAP) Setting 15 cm H2O Humidification Heated humidifier Device is appropriately on, plugged into red outlet, has water in humidity chamber. Please contact RT if any questions. Electronically signed by: Kellie Guardado R.R.T., L.R.T. 12/10/24 6:07 AM CDT * Nicole Burden M.D. - 12/09/2024 7:06 AM CDT T [facility] PROGRESS NOTE SUBJECTIVE HISTORY OF PRESENT ILLNESS Marcos Justin Taubman is a 89M PMH eosinophilic asthma. 2 recent hospitalization for recurrent pneumonia. Last d/c 11/12 after CAP Tx and 11/21 after cefepime. INTERVAL EVENTS: Same as yesterday, significantly improved since admission. Wonders how we can prevent him from returning to the hospital for 4th time though feels ready to return home. Net -512 mL over the last 24 hours Feeling quite well and eating full meals. OBJECTIVE Vitals Temperature: [36.4 ??C-36.8 ??C] 36.4 ??C Heart Rate: [71-84] 73 Resp Rate: [11-25] 15 Blood Pressure: (120)/(77) 120/77 SpO2: [91 %-96 %] 94 % Flow Rate (L/min): [2 L/min] 2 L/min Pulse Rate: [69-87] 69 Intake/Output Summary (Last 24 hours) at 12/09/2024 0706 Last data filed at 12/08/2024 2109 Gross per 24 hour Intake 980 ml Output 1500 ml Net -520 ml Physical exam: General: Alert and oriented; nontoxic appearing, sitting comfortably in bed. Interactive. HEENT: No scleral icterus, mucus membranes moist and intact CV: Regular rate & rhythm, no murmurs, rubs, or gallops. Symmetric radial pulses. JVP at the level of the clavicle. Pulm: Diffuse Velcro crackles bibasilarly, somewhat improved diffusely. no increased work of breathing on 2 L nasal cannula. GI: NTND, without rebound or guarding Neuro/Psych: CN Grossly intact, No observed focal deficits. Appropriate mood and affect. Skin/MSK: No obvious rashes or bruising, no lower extremity edema LABS 15.7 \ 11.3 / 177 / 34.6 \ 137 97 29 / 136 4.0(S) ; -- (P) 24 1.28 \ Lab Results Component Value Date AST 34 12/07/2024 ALT 45 12/07/2024 ALKPHOS 88 12/07/2024 BILITOT 0.7 12/07/2024 BILIDIR 0.2 12/07/2024 ALBUMIN 3.4 (L) 12/07/2024 PT 14.7 (H) 12/06/2024 INR 1.3 12/06/2024 LACTATE 1.0 12/07/2024 Lab Results Component Value Date MG 2.0 12/08/2024 Lab Results Component Value Date CLARITYU Clear 12/07/2024 COLORU Yellow 12/07/2024 RBCU 11-20 (A) 12/07/2024 NITRITEU Negative 12/07/2024 LEUKOCYTESU Negative 12/07/2024 PROTEINQUALU 15 12/07/2024 GLUCOSEU Negative 12/07/2024 KETONESU Negative 12/07/2024 PHURINE 5.5 12/07/2024 SPECGRAV 1.010 09/23/2018 ALTON panel negative, CTD cascade negative, Anca negative IMAGING No results found. ASSESSMENT / PLAN Mr. Perez is a 89 y.o. male hospitalized on [facility] for dyspnea worse in the morning, mild acute hypoxemic respiratory failure ( now requiring 2 L nasal cannula at rest), and fever at his assisted living facility. Laboratory workup remains negative at this time, the underlying pulmonary process is still somewhatunclear though he appears to have rapid improvement following initiation of steroids pointing towards an inflammatory process. We will continue to treat with antibiotics and reinitiate a short steroid taper for any inflammatory process. Given his prolonged steroid use, we would be cognizant that heis at risk for iatrogenic adrenal/HPA suppression. 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 He will complete a 5 day course of antibiotics tomorrow. # acute hypoxic respiratory failure, improvi insufficiency c/f interstitial lung disease # possible pneumonia (non severe) in setting of 2 x hospitalizations for pneumonia # concern for aspiration due to cough while eating # Hx eosinophilic asthma Ddx: ILD exacerbation, acute pneumonia, eosinophilic pneumonia. Previously on mepolizumab (stopped for insurance coverage), last dose of dupilumab 11/15. Diagnostics: If possible, obtain pnemonia PCR with bacterial culture and Gram stain, Pneumocystis PCR Telomere length measurement by fish on Tuesday ANCA panel, ALTON, connective tissue disease cascade negative Treatment: Continue ceftriaxone and doxycycline x5 days (EOT 12/10). Plan to transition to cefdinir if needed for outpatient. Continue BID budesonide and once daily fluticasone/vilanterol with PRN albuterol, daily montelukast PRN Benzonatate Continue prednisone 60 mg Taper plan: Pred 60mg (12/07 - 12/13), 40mg (12/14-12/20), 20mg (12/21-12/27), Discontinue afterwards GI PPX: On home PPI daily PJP PPX: Daily SS Bactrim Continue vit D supplementation CAPABILITY LEAD Eval: Regular diet with marcelle mantilla Outpatient: Pulmonary clinic follow up # possible E. Coli urinary tract infection, without pyuria # Hematuria Ucx with E. Coli 10-100k CFU. Ceftriaxone as above Will need follow up UA in approximately 6 weeks with primary care provider for hematuria # Atrial fibrillation # Hx NSTEMI w/o intervention # Complete heart block s/p pacemaker 1998 # HFpEF (EF 53% 08/2023) # HLD # CAD -holding home torsemide while initiating Bactrim, resume at discharge -Continue home rivaroxaban # GERD: Continue home pantoprazole # Iron deficiency: continue home ferrous sulfate, MVI # MDD: Continue home sertraline # BPH: Continue home finasteride VTE prophylaxis: Therapeutic rivaroxaban Code status: DNR/DNI (updated POLST DNR DNI with selective treatment) Surrogate Decision Maker: Daughter, Zoraida Perez Diet: Regular Bowel Reg: MiraLAX, Senna, Mg Oxide Living Situation Before Admission: Assisted Living Discharge Plan (equipment, therapy, and facility): Return to Assisted Living LDA: Lines, Drains, and Airways Peripheral IV Duration Peripheral IV 12/06/24 20 G Right Antecubital 2d 14h Wound Duration Wound 12/07/24 Pressure Injury Stage 1 Not applicable Coccyx Redness 1d 10h Plan discussed with [facility] Html Web Developer, Dr. Peña, who was present duringkey portions of the evaluation today. Please page the [facility] service pagerat [phone] with any questions. Nicole Burden M.D. PGY-2 Internal Medicine Cosigned by Kayode Peña M.D. at 12/09/2024 5:58 PM CDT Associated attestation - Kayode Peña M.D. - 12/09/2024 5:58 PM CDT There has been obvious clinical improvement over last several days and he is now feeling subjectively better, afebrile, and saturating well on 2L NC. This has occurred in association with systemic steroids and empiric antibacterials. The mechanism of his steroid responsive symptoms is not clear at this time. He has now had several admissions under similar circumstances. Elevated CRP suggests the possibility of autoinflammatory condition but autoantibody testing has been negative. 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 He has eosinophilia to 780 on admission. Although he has underlying asthma, I do not believe that his presentation is due to asthmatic exacerbation which seems well controlled on Dupixent and Breo. He is clinically improved and can discharge to outpatient setting tomorrow with continued outpatient followup. I suggest slow taper of prednisone over several weeks with outpatient followup before hecompletes steroid taper. Discussed with patient and daughter. This is a supervisory note for Dr. Burden. I have discussed the case with her and I agree with her history, physical exam, assessment, and plan as documented in her note of today's date. I have also personally interviewed and examined the patient today. Kayode Peña M.D. ([id number]) * Kellie Guardado R.R.T., L.R.T. - 12/08/2024 9:44 PM CDT 12/08/24 8344 BPAP/CPAP Therapy BPAP/CPAP Interface Full face mask BPAP/CPAP Interface Size Medium Patient's Own Equipment Mask;Tubing;CPAP;Equipment inspected (per site policy) Ventilator Parameters BPAP/CPAP Mode CPAP;Per Home Settings O2 Flow Rate 2 L/min NPPV EPAP (CPAP) Setting 15 cm H2O Device is appropriately on, plugged into red outlet, has water in humidity chamber, pt states he can place it on himself when ready for bed. Please contact RT if any questions. Electronically signed by: Kellie Guardado R.R.T., Mari 12/08/24 9:45 PM CDT * Nicole Burden M.D. - 12/08/2024 7:21 AM CDT [facility] PROGRESS NOTE SUBJECTIVE HISTORY OF PRESENT ILLNESS Marcos Perez is a 89M PMH eosinophilic asthma. 2 recent hospitalization for recurrent pneumonia. Last d/c 11/12 after CAP Tx and 11/21 after cefepime. INTERVAL EVENTS: Feeling better today, and endorses that his breathing has improved along with improvement in his generalized fatigue. He still does not feel quite back to baseline. Took a long walk with physical therapy, [facility] score 23 OBJECTIVE Vitals Temperature: [36.3 ??C-36.8 ??C] 36.8 ??C Heart Rate: [70-82] 73 Resp Rate: [11-23] 22 Blood Pressure: (112-117)/(68-75) 115/70 SpO2: [92 %-97 %] 92 % Flow Rate (L/min): [2 L/min] 2 L/min Pulse Rate: [69-79] 73 Intake/Output Summary (Last 24 hours) at 12/08/2024 1441 Last data filed at 12/08/2024 1300 Gross per 24 hour Intake 360 ml Output 1150 ml Net -790 ml Physical exam: General: Alert and oriented; nontoxic appearing, sitting comfortably in bed. Interactive. HEENT: No scleral icterus, mucus membranes moist and intact CV: Regular rate & rhythm, no murmurs, rubs, or gallops. Symmetric radial pulses. JVP at the level of the clavicle. Pulm: Diffuse Velcro crackles bibasilarly, extending up to the mid lung on the right, no increased work of breathing on 2 L nasal cannula GI: NTND, without rebound or guarding Neuro/Psych: CN Grossly intact, No observed focal deficits. Appropriate mood and affect. Skin/MSK: No obvious rashes or bruising, no lower extremity edema LABS 13.9 \ 11.1 / 168 / 34.6 \ 136 99 27 / 121 4.2(S) ; -- (P) 26 1.20 \ Lab Results Component Value Date AST 34 12/07/2024 ALT 45 12/07/2024 ALKPHOS 88 12/07/2024 BILITOT 0.7 12/07/2024 BILIDIR 0.2 12/07/2024 ALBUMIN 3.4 (L) 12/07/2024 PT 14.7 (H) 12/06/2024 INR 1.3 12/06/2024 LACTATE 1.0 12/07/2024 Lab Results Component Value Date CLARITYU Clear 12/07/2024 COLORU Yellow 12/07/2024 RBCU 11-20 (A) 12/07/2024 NITRITEU Negative 12/07/2024 LEUKOCYTESU Negative 12/07/2024 PROTEINQUALU 15 12/07/2024 GLUCOSEU Negative 12/07/2024 KETONESU Negative 12/07/2024 PHURINE 5.5 12/07/2024 SPECGRAV 1.010 09/23/2018 ALTON panel negative, CTD cascade negative, Anca negative IMAGING No results found. ASSESSMENT / PLAN Mr. Perez is a 89 y.o. male hospitalized on [facility] for dyspnea worse in the morning, mild acute hypoxemic respiratory failure ( now requiring 2 L nasal cannula at rest), and fever at his assisted living facility. Serologic tests for rheumatologic disorders remain negative, and there is no clear etiology to his likely underlying ILD. With regards to his acute exacerbation, it remains unclear whether or not there is an underlying pulmonary or urinary infection since similar symptoms can be associated with ILDflare. His immediate symptomatic improvement following steroid points towards likely ILD or inflammatory process; regardless, we will treat with a 5 day course of antibiotics for community-acquired pneumonia and provide some gentle diuresis to improve respiratory status. # acute hypoxic respiratory failure, improving # more likely exacerbation or progression of interstitial lung disease # possible pneumonia (non severe) in setting of 2 x hospitalizations for pneumonia # concern for aspiration due to cough while eating # Hx eosinophilic asthma Ddx: ILD exacerbation, acute pneumonia, eosinophilic pneumonia. Previously on mepolizumab (stopped for insurance coverage), last dose of dupilumab 11/15. Diagnostics: If possible, obtain ammonia PCR with bacterial culture and Gram stain, Pneumocystis PCR Telomere length measurement by fish on Tuesday Obtain ANCA panel, ALTON, connective tissue disease cascade negative Treatment: Continue ceftriaxone and doxycycline x5 days (EOT 12/10) Continue BID budesonide and once daily fluticasone/vilanterol with PRN albuterol, daily montelukast Lasix 100mg IV, Goal -500mL Recheck PM Lytes Strict I/Os PRN Benzonatate Continue prednisone 60 mg GI PPX: On home PPI daily Consider PJP PPX pending taper plan Consider vit D/calcium supplementation CAPABILITY LEAD Eval: Regular diet with marcelle mantilla Outpatient: will need pulmonary follow-up # possible E. Coli urinary tract infection, without pyuria # Hematuria Ucx with E. Coli 10-100k CFU. Ceftriaxone as above Will need follow up UA in approximately 6 weeks with primary care provider for hematuria # Atrial fibrillation # Hx NSTEMI w/o intervention # Complete heart block s/p pacemaker 1998 # HFpEF (EF 53% 08/2023) # HLD # CAD -Hold home torsemide, diuresis as above -Continue home rivaroxaban # GERD: Continue home pantoprazole # Iron deficiency: continue home ferrous sulfate, MVI # MDD: Continue home sertraline # BPH: Continue home finasteride VTE prophylaxis: Therapeutic rivaroxaban Code status: DNR/DNI (updated POLST DNR DNI with selective treatment) Surrogate Decision Maker: DaughterZoraida Living Situation Before Admission: Assisted Living Discharge Plan (equipment, therapy, and facility): Return to Assisted Living, potentially within the next few days LDA: Lines, Drains, and Airways Peripheral IV Duration Peripheral IV 12/06/24 20 G Right Antecubital 1d 22h Wound Duration Wound 12/07/24 Pressure Injury Stage 1 Not applicable Coccyx Redness 17h Plan discussed with [facility] Html Web Developer, Dr. Peña, who was present duringkey portions of the evaluation today. Please page the [facility] service pagerat [phone] with any questions. Nicole Burden M.D. PGY-2 Internal Medicine Cosigned by Kayode Peña M.D. at 12/08/2024 4:21 PM CDT Associated attestation - Kayode Peña M.D. - 12/08/2024 4:21 PM CDT He is clinically improved today in association with several concurrent therapies including systemicsteroid and antibiotics. He is growing E coli from urine specimen but there is otherwise no definite nidus of infection and the mechanism of this improvement is incompletely clear at this point. We are in the process of obtaining several laboratory tests including ILD labs to try to clarify the nature of his underlying lung disease. He does have asthma but his asthma seems to be well-controlled and he is not presenting in asthmatic exacerbation with current hospitalization. This is a supervisory note for Dr. Burden. I have discussed the case with her and I agree with her history, physical exam, assessment, and plan as documented in her note of today's date. I have also personally interviewed and examined the patient today. Kayode Peña M.D. ([id number]) * Kellie Guardado R.R.T., L.R.T. - 12/07/2024 9:54 PM CDT 12/07/242151 BPAP/CPAP Therapy BPAP/CPAP Interface Full face mask BPAP/CPAP Interface Size Medium Patient's Own Equipment Mask;Tubing;CPAP;Equipment inspected (per site policy) Ventilator Parameters BPAP/CPAP Mode CPAP;Per Home Settings O2 Flow Rate 2 L/min NPPV EPAP (CPAP) Setting 15 cm H2O Patients home CPAP set up at bedside and plugged into a red outlet with a 2L bleed in. Patient states they are able to place it on independently when ready for bed. Electronically signed by: Kellie Guardado R.R.T., L.R.T. 12/07/24 9:55 PM CDT * Marisela Pereria R.Ph. - 12/07/2024 11:52 AM CDT Pharmacist Progress Note Reason for admission: fever, concern for respiratory infection. Recent admission (11/16-11/21) for pneumonia treated with IV antibiotics and steroids. PMH: a-fib on Xarelto, DANAE, eosinophilic asthma, HLD, GERD, prolonged QT syndrome, HFpEF, complete heart block s/p PPM 1998, mild CAD with NSTEMI 2019 OBJECTIVE Home medications: per [facility] Held: montelukast, omeprazole, KCl, torsemide Changed: rivaroxaban renally dosed VTE prophylaxis: rivaroxaban Estimated Creatinine Clearance: 42.6 mL/min (by C-G formula based on SCr of 1.23 mg/dL). ASSESSMENT / PLAN Fever, concern for pulmonary infection, recent admit for pneumonia: On ceftriaxone, doxycycline. Recommend add stop dates. Prednisone 60 mg/day with planned taper. Recommend resume home omeprazole. Continue home Breo, Pulmicort. Recommend resume home montelukast. Renal - SCr 1.23, CrCl 43. Holding torsemide, KCl Rivaroxaban dose decreased to 15 mg qpm due to CrCl < 50. Messi Quan.Ph. * Marisela Pereira R.Ph. - 12/07/2024 11:50 AM CDT Admission Medication History Note Adherence issues: No concerns Medication list source: Outside facility MAR Medication related information: Updated per list from [facility]. Prior to Admission Medications acetaminophen (TylenoL) 500 mg tablet Take 1,000 mg by mouth 2 (two) times a day as needed for pain. budesonide (PULMICORT) 0.25 mg/2 mL nebulizer solution Inhale 0.25 mg 2 (two) times a day. cholecalciferol, vitamin D3, 25 mcg (1,000 Unit) tablet Take 1 tablet (25 mcg total) by mouth daily. dupilumab (Dupixent Pen) 300 mg/2 mL injection [...] other day. finasteride (PROSCAR) 5 mg tablet Take 5 mg by mouth daily. fluticasone furoate-vilanteroL (Breo Ellipta) 100-25 mcg/actuation inhaler Inhale 1 puff once daily. ipratropium-albuteroL (DuoNeb) 0.5-2.5 mg/3 mL nebulizer solution Inhale 3 mL by nebulization 4 (four) times a day. montelukast (SINGULAIR) 10 mg tablet Take 10 mg by mouth at bedtime. nvuhjrpzjpte-boxt-KK-Ca-minerals 400 mcg (folic acid) tablet Take 1 tablet by mouth daily. omeprazole (PriLOSEC) [address] capsule Take 20 mg by mouth every morning before breakfast. potassium chloride (KLOR-CON M) 10 mEq ER tablet Take 20 mEq by mouth 2 (two) times a day with meals. sennosides (senna) 8.6 mg tablet Take 8.6 mg by mouth at bedtime as needed for constipation. sertraline (ZOLOFT) 50 mg tablet Take 50 mg by mouth daily. torsemide 60 mg tablet Take 60 mg by mouth daily for 30 days. Xarelto 20 mg tablet Take 20 mg by mouth daily with evening meal. * Melo Cerna M.D. - 12/07/2024 6:01 AM CDT [facility] PROGRESS NOTE SUBJECTIVE HISTORY OF PRESENT ILLNESS 89M Hx eosinophilic asthma. 2 recent hospitalization for recurrent pneumonia. Last d/c 11/12 after CAP Tx and 11/21 after cefepime. Also ILD, not worked up 10/2024 d/c with prednisone with prolonged taper (currently 30 mg) Every morning since first stay, wakes up dyspneic, but this was more prominent than normal on 12/06. He was found to have a 103.7?? F fever at assisted living, as well as 2 L oxygen requirement at rest (after last discharge only as needed 2 L with exercise and overnight) INTERVAL EVENTS: Vitals stable. 2 L bleed through CPAP +100 net so far AM labs: Hemoglobin 12.9 stable, leukocytes 16.9 from 17.6, chemistries pending this morning OBJECTIVE PHYSICAL EXAMINATION General: Alert, interactive, not acutely ill. Eyes: Pupils equal and round. Sclera anicteric. ENT: Hearing grossly intact. Dentition intact. No oral or pharyngeal erythema or lesions noted. Lungs: Inspiratory Velcro crackles mid and base on the right and at base on the left. No wheezes. Heart: Regular rate and rhythm. No murmurs appreciated. No lower extremity edema. Abdomen: Soft, flat, bowel sounds normoactive, nontender, nondistended, no palpable masses or organomegaly. Mental: Mood and affect congruent. Alert and oriented. Attention intact. No evidence of disorganized thinking. 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 . ASSESSMENT / PLAN Mr. Perez is a 89 y.o. male hospitalized on [facility] for dyspnea worse in the morning, mild acute hypoxemic respiratory failure ( now requiring 2 L nasal cannula at rest), and fever at his assisted living facility. His chest CT does not clearly show consolidation supporting bacterial pneumonia. What does appear to have progressed since his CT chest even since 11/18/2024 are lower lobe predominant reticulations and associated ground-glass. His interstitial lung disease has not been fully evaluated in the past,and we will begin with serologic testing today. Continue community-acquired pneumonia coverage for now, especially in light of positive E coli on urine culture which may be an explanation for the fever even in absence of pulmonary infection. He does not appear to be in an acute asthma exacerbation right now; interestingly, although he is on moderate doses of prednisone 30 mg daily, he still has some eosinophilia which could be seen in some interstitial lung diseases as well. Otherwise, we will evaluate him for aspiration especially with his recurrent hospital stays for pulmonary concerns, and PT OT consults for eventual disposition planning back to his assisted living facility. # mild acute hypoxic respiratory failure, on 2 L nasal cannula at rest # more likely exacerbation or progression of interstitial lung disease # possible pneumonia (non severe) in setting of 2 x hospitalizations for pneumonia # concern for aspiration due to cough while eating # Hx eosinophilic asthma Diagnostics: If productive of sputum, obtain pneumonia PCR with bacterial culture and Gram stain, Pneumocystis PCR Add on CRP Obtain ANCA panel, ALTON, connective tissue disease cascade for ILD workup. Hold off on myositis panel for now Treatment: Change ampicillin sulbactam to ceftriaxone. Continue doxycycline Escalate prednisone to 60 mg today Continue BID budesonide and once daily fluticasone/vilanterol with PRN albuterol, continue montelukast NPO pending speech language pathology evaluation # possible E. Coli urinary tract infection, without pyuria Repeat urinalysis with straight cath Ceftriaxone as above # Atrial fibrillation: Continue home rivaroxaban # heart failure with preserved ejection fraction: Hold home torsemide pending reassessment of fluidstatus, consider diuresis # depression: Continue home sertraline # Benign prostatic hyperplasia: Continue home finasteride VTE prophylaxis: Therapeutic rivaroxaban Code status: DNR/DNI (updated POLST DNR DNI with selective treatment) Surrogate Decision Maker: Daughter, Zoraida Perez Living Situation Before Admission: Assisted Living Discharge Plan (equipment, therapy, and facility): Return to Assisted Living Plan discussed with [facility] Html Web Developer, Dr. Peña, who was present duringkey portions of the evaluation today. Please page the [facility] service pagerat [phone] with any questions. Melo Cerna M.D. PGY-2 Internal Medicine * Matthew Mariano R.R.T., L.R.T. - 12/07/2024 12:42 AM CDT 12/06/242129 BPAP/CPAP Therapy BPAP/CPAP Interface Full face mask BPAP/CPAP Interface Size Medium Patient's Own Equipment Mask;Tubing;CPAP;Equipment inspected (per site policy) Skin barrier Refused Ventilator Parameters Ventilator Parameters (Select Groups) BPAP/CPAP Rows BPAP/CPAP Mode Per Home Settings;CPAP NPPV EPAP (CPAP) Setting 15 cm H2O Humidification Heated humidifier RT placed patient on CPAP/ BIPAP with the above settings for the night. No respiratory concerns at time of placement. Electronically signed by: Bon Mariano R.R.T., L.R.T. 12/07/24 12:42 AM CDT documented in this encounter H&P Notes * Kayode Peña M.D. - 12/07/2024 10:49 AM CDT SUBJECTIVE HISTORY OF PRESENT ILLNESS Patient is a very pleasant 89 y.o. male who is referred for evaluation of fever and hypoxia. This is a supervisory note, and please see Dr. Bui's note for details about this patient's recent medical history. I personally met with and interviewed the patient. DIAGNOSTICS I have reviewed the patient's current laboratory, imaging, and other diagnostic studies. ASSESSMENT / PLAN He is admitted with dyspnea and fever and malaise. He is requiring 4L NC oxygen. He has had pattern of several recent admissions (Nov 09-, Nov 17-, now readmitted yesterday) fordyspnea and hypoxia and pulmonary infiltrates. His presentation has been attributed to pneumonia and he also received tapering course of systemic steroid I reviewed his chest CT which shows patchy ground glass infiltrates and findings suggestive of fibrotic ILD. The infiltrates are similar to November [address] and have slightly decreased in extent since then. The cause of his fever and malaise and infiltrates is not entirely clear. We will investigate of pulmonary and extrapulmonary infectious sources of fever. We will obtain additional testing to evaluate fro inflammatory causes of his ILD findings. We will obtain testing to assess for aspiration and cardiac function. We will empirically provide antibacterials and corticosteroids while this evaluation is ongoing. His eosinophil count is noted to be 780 in spite of report that he has been receiving prednisone 30mg daily. We will confirm that he has actually been receiving steroid at his facility. He has history of asthma maintained on Dupilumab and Breo Ellipta and Pulmicort. I do not see evidence that his present symptoms are due to asthmatic exacerbation. The rest and details per Dr. Cerna and Dr. Bui. This is a supervisory note for Dr. Cerna and Dr. Bui. I have discussed the patient's case withthe resident team and agree with their history, physical examination, assessment, and plan as documented. Please see their detailed documentation for further details including the past medical history, family history, social history, medication, allergies, and review of systems which I have reviewed and agree with except as may be noted herein. I have also interviewed, examined, and evaluated thepatient myself today. Kayode Peña M.D. * Brianna Bui M.D., Ph.D. - 12/06/2024 7:40 PM CDT [facility] Admission Note SUBJECTIVE CHIEF COMPLAINT/REASON FOR VISIT Fever HISTORY OF PRESENT ILLNESS Mr. Marcos Perez is a 89 y.o. male who presents with fever and dyspnea. Medical comorbidities notable for atrial fibrillation on Xarelto, DANAE, eosinophilic asthma, hyperlipidemia, GERD, progression, prolonged QT syndrome, HFpEF (EF 53% on 09/12/23) complete heart block s/p pacemaker 1998, mild CAD and NSTEMI 2018 with no stents. He was recently hospitalized on 11/09/24 through 11/12/24 for community-acquired pneumonia after presenting with cough and dyspnea as well as new oxygen requirement at rest. He was treated with ceftriaxone and doxycycline, which was transitioned to cefpodoxime and doxycycline for 6 days on discharge.He was subsequently readmitted on 11/16/2024 to 11/21/2024 with worsening dyspnea, subjective fever, hypoxia and night sweats concerning for recurrent pneumonia. Infectious Disease and pulmonology were involved during this stay and recommended cefepime (vancomycin initially administered and discontinued due to negative MRSA nares) and 40 mg prednisone x5 days for asthma exacerbation. He completedantibiotics during this admission and was discharged on the remaining 2 days of his prednisone taper with PRN prednisone 40 for ongoing symptoms. At his post hospital follow up, he was given a prolonged prednisone taper and is currently taking 30 mg prednisone. Upon awakening this morning he was short of breath. His retirement staff took his temperature andnoted a fever of 103.7. He was administered acetaminophen with improvement in both fever and dyspnea. He notes that he has been intermittently dyspneic in the morning since his initial pneumonia admission but states that today was worse. Per his daughter at bedside, he appeared to have been workingharder to breathe, although his respiratory status now is improved. Denies any wheezing, chest pain, abdominal pain, dysuria, runny nose, congestion, change in weight, or sick contacts. He notes he has had minimal cough. Baseline oxygen requirement is 2 L with activity and sleeping, but he has subsequently required oxygen now with rest. Given this fever and dyspnea, he presented to the ED for further evaluation. In the ED, laboratory workup was remarkable for lactate of 2.4, leukocytosis to 17.6, and NT [id number] (988 during recent admission). Initial EKG was reassuring against ACS. Troponins were obtained,elevated to 73 (similar to prior chronic troponin elevation) and down trending to 58 at 6 hours. Respiratory pathogen panel was obtained and negative. CT chest without IV contrast was obtained and demonstrated decreased patchy ground-glass opacities in the upper lobes with persistent micro nodularity and ground-glass opacities in the lung bases suggestive of improving infectious/inflammatory process versus waxing/waning of patient's ILD. Blood cultures were obtained, he was given 1 dose cefepime, and admitted to pulmonology for further management. Upon further discussion, he endorses episodes of coughing and choking with eating that occurs several times weekly, most recent episode a few days before onset of symptoms. He reports a 15 pack-year history of tobacco having quit 55- 60 years ago. He otherwise denies vaping, alcohol use, or any other substance use. OBJECTIVE PHYSICAL EXAMINATION General: Alert, interactive, not acutely ill. Eyes: Pupils equal and round. Sclera anicteric. ENT: Hearing grossly intact. Dentition intact. No oral or pharyngeal erythema or lesions noted. Lungs: Clear to auscultation. No wheezes or crackles. Heart: Regular rate and rhythm. No murmurs appreciated. No lower extremity edema. Abdomen: Soft, flat, bowel sounds normoactive, nontender, nondistended, no palpable masses or organomegaly. Mental: Mood and affect congruent. Alert and oriented. Attention intact. No evidence of disorganized thinking. 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 ASSESSMENT / PLAN Mr. Perez is hospitalized on [facility] for evaluation and management of fever and dyspnea. With his reported fever this morning, I concerned about an underlying infection process. Given his dyspnea new oxygen requirement, respiratory sources most likely, although his imagingis not clearly consistent with a worsening infectious process. He does not have any other localizing infectious symptoms that would point towards an alternative source. I am concerned with his reported coughing and choking while eating that there may be a component of aspiration leading to his recurrent hospitalizations. We will continue antibiotics with ampicillin sulbactam for anaerobic coverage along with doxycycline and obtain a formal speech and swallow evaluation in the morning. He will be NPO in the meantime. Given recurrent recent antibiotic exposures, we will additionally obtain sputum for culture and pneumonia PCR. Fortunately, he does not have appreciable wheezing or tachypnea on my exam. My suspicion for concurrent asthma exacerbation is low in his case. We will continue his ongoing prednisone taper at the current dose of 30 mg. Additionally, we will continue his chronic asthma control medications. # Fever and dyspnea concerning for respiratory infection # Ground glass opacities in upper lobes and lung bases # Recent admission for pneumonia # Coughing with eating concerning for aspiration # Eosinophilic asthma - Sputum culture with Pneumonia PCR - Ampicillin/sulbactam and doxycycline - Continue prednisone taper at 30 mg - 30 mg until 12/11 - 20 mg 12/12 - 12/18 - 10 mg 12/19 - 12/26 - Continue BID budesonide and once daily fluticasone/vilanterol with PRN albuterol - NPO pending formal speech evaluation - CAPABILITY LEAD consult, appreciate assistance # Atrial fibrillation # HFpEF # MDD # BPH - Continue home rivaroxaban - Hold home torsemide pending fluid status - Continue home sertraline - Continue home finasteride VTE prophylaxis: Therapeutic anticoagulation Code status: DNR/DNI Surrogate Decision Maker: Daughter, Zoraida Perez Living Situation Before Admission: Assisted Living Discharge Plan (equipment, therapy, and facility): Return to Assisted Living Plan will be discussed with [facility] Html Web Developer, Dr. Peña, in the morning. [place] [facility] [place] [phone] with any questions. Brianna Bui M.D., Ph.D. PGY-2, Internal Medicine Pager: [phone] documented in this encounter Consult Notes * Natalia Otoole O.T., O.T.D. - 12/10/2024 8:50 AM CDT Occupational Therapy Acute Hospital Inpatient Evaluation/Treatment SUBJECTIVE Patient's Name: Marcos Perez Referring/Attending Provider: Justin Acosta Jr., M.D. Reason for Referral: Occupational Therapy Evaluation and Treatment Onset Date: 12/06/2024 PERTINENT MEDICAL / SURGICAL HISTORY: Medical History[1] Surgical History[2] History of Present Illness: Marcos Perez is a 89 y.o. male who was admitted to [facility] in [place] on 12/06/2024 for Sepsis (HCC) [A41.9]. Pain Assessment: Pain not reported during session. Patient/Caregiver Goals: Discharge home Subjective Comments: Agreeable to therapy session. 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 Leisure Interests: fishing, card games, bingo, painting at [facility], chatting with friends at [facility], go outside with [employer] during nice weather OBJECTIVE Vital Signs: Vitals taken during session:O2 flow: 2 L/min nasal cannula Evaluation Assessment: STRENGTH: Generalized weakness RANGE OF MOTION: Not formally assessed but appears within functional limits based on observation BALANCE: Static Sitting: Good (Maintains balance without support) Dynamic Sitting: Good (Maintains balance without support) Static Standing: Fair (Maintains balance with handheld assist) Dynamic Standing: Fair (Maintains balance with handheld assist) ACTIVITY TOLERANCE: Endurance: Tolerates 10-20 minutes of activity Outcome Measures: AM-PAC Inpatient Short Form: Putting on and taking off regular lower body clothing?: A Little Putting on and taking off regular upper body clothing?: None Taking care of personal grooming such as brushing teeth?: None Bathing (including washing, rinsing, drying)?: A Little Toileting, which includes using toilet, bedpan, or urinal?: A Little Eating meals?: None Daily Activities Raw Score (max 24): 21 Daily Activities Standardized Score: 44.27 Interpretation: Based on scoring guidelines using the [...] factors to consider when discharge planning. Cognition: Will further assess and monitor as warranted Therapeutic Interventions: ACTIVITIES OF DAILY LIVING: GROOMING - Assist Level: supervision/set-up - Patient Location: standing at sink - Activity: brushing teeth - regular or soft brush, denture Care, washing face - Therapist Delivery: assessed, facilitated - Assist/Cues Provided: none BED MOBILITY: SUPINE TO SIT - Assist Level: supervision/set-up - Device: bed rail, head of bed elevated - Therapist Delivery: assessed, facilitated - Assist/Cues Provided: none FUNCTIONAL TRANSFERS: SIT<>STAND - Assist Level: supervision/set-up - Device: front wheeled walker and gait belt - Surface: bed, chair - Therapist Delivery: assessed, facilitated - Assist/Cues Provided: none FUNCTIONAL MOBILITY: In-room mobility performed with contact guard assistance and front wheeled walker and gait belt Education/Training Provided: Provided education on role of occupational therapy in the acute setting. Collaborated with patient and/or family on goals and plan of care. Functional Transfers: - Provided instruction and cues during functional sit to/from stand transfers, including body alignment to surface, appropriate hand placement, and optimal placement of extremities to optimize safetyand technique. Team Communication: The patient's status was discussed and coordination of care occurred with RN Patient was left in bedside chair at end of session with call light [...] Currently, patient presents with impairments including decreased strength, impaired balance, decreased activity tolerance, and limited endurance resulting in functional deficits including impaired functional mobility and decreased independence with self care tasks. Marcos Perez participated well in OT eval & treatment today. He demonstrated standinggrooming for approx 7-8 min with setup assistance/supervision and no LOB. He mobilized well with FWW and CGA. OT will continue to progress functional mobility to increase participation and independence in I/ADLs. The patient will benefit from ongoing occupational therapy services while hospitalized in order to improve engagement and independence in meaningful occupations. In-Hospital Activity and Mobility Recommendations: - Transfer into chair 3x/day with assist x 1. - Recommend position changes every 2 hours - Ambulate to bathroom for toileting - Eat ALL meals in chair - Active engagement in daily self-care routine (oral cares, face washing, combing hair) - Maintain typical day/night routine and incorporate sleep hygiene strategies Plan OT Plan Comments: Next Session: Verbalize energy conservation/activity modification strategies, complete TB dressing using AE as needed Functional Goals: OT Goal #1: Patient will complete a grooming task standing at sink with modified independence for 5minutes to progress standing balance and endurance during functional tasks. OT Goal #2: Patient will complete total body dressing with retrieval and modified independence using adaptive equipment to increase independence in daily activities by discharge. OT Goal #3: Patient will participate in a cognitive screen/assessment in order to assist with discharge planning and safety recommendations. OT Goal #4: Patient will complete toilet transfer, clothing management, and dl cares with modified independence using an assistive device as needed to decrease caregiver burden and return to prior level of function. Progress: Progressing toward goals Rehab potential: Mr. Perez has good potential to achieve established occupational therapy goals within the time frame outlined below. OT Frequency: OT Amount: 1 visit per day OT Frequency: 5 times per week OT Inpatient Duration : Until goals are met or hospital discharge Requires Inpatient OT Follow-Up: Yes OT - Next Inpatient Appointment: 12/11/24 Plan: Plan of care initiated Treatment interventions may include: Treatment Interventions: Therapeutic functional activity, Therapeutic exercise, Self-care/home management, Cognitive skills training Occupational Therapy Attestation Statement: Patient agrees with the plan of care and goals. Billing: Tiered OT Evaluation Codes: Personal Factors: Needs assistive device Occupational Profile and History review: Expanded Performance Deficits: 3 - 5 performance deficits Evaluation Complexity: Moderate Time Spent with Patient Evaluations OT Eval - Mod Complexity: 10 min Therapeutic Interventions Home Management Training (min): 20 min Time Tracking Total Timed Units (min): 20 min Total Treatment Time (min): 30 min Natalia Otoole O.T., O.T.Yasir [1] Past Medical History: Diagnosis Date Anxiety [...] Angiography; Surgeon: Estrada Christian M.D., Ph.D.; [place] [facility] [place] N/A 05/13/2023 Procedure: Coronary Angiography; Surgeon: Bari Johnson M.D.; [place] [facility] [place] N/A 05/13/2023 Procedure: Left Heart Catheterization; Surgeon: Bari Johnson M.D.; [place] [facility] [place] PACEMAKER Left 05/30/2023 Procedure: PPM Generator Change - Dual Chamber; Surgeon: Sidney Bartlett M.D.; Location: [facility] EYE SURGERY bilateral cateract surgery HERNIA REPAIR JOINT REPLACEMENT PACEMAKER OPERATIVE PROSTATE SURGERY TURP TONSILLECTOMY VASECTOMY * Kayode Gonzalez P.T., D.P.T. - 12/08/2024 1:00 PM CDT Physical Therapy Inpatient Evaluation/Treatment SUBJECTIVE Patient's Name: Marcos Perez Referring/Attending Provider: Kayode Peña M.D. 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 Marcos Perez has a past surgical history that includes Vasectomy; Joint replacement; Appendectomy (1957 or 1958); Hernia repair; Pacemaker Operative; Eye surgery; Prostate surgery; Tonsillectomy; ANGIOGRAM (N/A, 09/25/2018); ANGIOGRAM (N/A, 05/13/2023); ANGIOGRAM (N/A, 05/13/2023); and Pacema ker (Left, 05/30/2023). History of Present Illness: Marcos Perez is a 89 y.o. male who was admitted to [facility] in [place] on 12/06/2024 for Sepsis ([facility]) [A41.9] Precautions: Other Precautions: SOB during ambulation Home Setup/Layout: Lives with: Alone, lives next door at [facility] Receives help from: Facility Staff Type of [...] Adjustable bed, Home Oxygen, 2 L via [place] Home Living Comments: gets help from [facility] as needed Prior Level of Function and Mobility: Basic Activities of Daily Living: Modified Independent Instrumental Activities of Daily Living: Required Assistance Help with showering, able to get dressed independently Functional Mobility: Modified Independent Driving: No 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 Patient/Caregiver Goals: No goals stated Subjective: Agreeable to therapy session. OBJECTIVE Vital Signs: Vitals measured via visi monitoring system throughout evaluation No adverse signs to activity noted. Oxygen saturations remained between 88-92% with 2 L oxygen via nasal cannula (baseline) Evaluation Assessments: Strength: Assessed, no impairments Endurance: Requires rest breaks Tolerates less than 10 minutes of activity (fatigue limiting) Static Sitting: Maintains balance without support Dynamic Sitting: Maintains balance without support Static Standing: Maintains balance with support (assistive device support, grab bars, etc.) Dynamic Standing: Maintains balance with support (assistive device support, grab bars, etc.) (fatigue limiting) Outcome Measures: -[facility] Inpatient Short Form: -[facility] Basic Mobility (V.2) How much help from [...] bed to a chair (including a wheelchair)?: None 4. Standing up from a chair using your arms (e.g., wheelchair, or bedside chair)?: None 5. To walk in hospital room?: None 6. Climbing 3-5 steps with a railing?: A Little AM-[facility] Basic Mobility (V.2) Raw Score: 23 AM-PAC Basic Mobility (V.2) Standardized Score: 50.88 The above AM-PAC score and PT recommendations are intended to guide discharge planning related to functional status and equipment needs but are not the primary determinants of discharge disposition. Final decisions are made by the primary team and patient/caregiver(s). Interpretation: Based on scoring guidelines using the raw score value: Those going to home had an average score at or above 18 Those going to facility had an average score at or below 17 Clinicians answer the -[facility] Inpatient Short Form based on observed patient activity and/or clinical judgment (ie. patient can be scored without physically performing each activity) Safety Measures Taken Prior to Mobility: Room environment prepared for optimal safety prior to initiating mobility during session Time and care was taken to arrange and manage lines and tubes for optimal safety throughout session Ensured supplemental oxygen tank at adequate amount of oxygen to supply the patient while performing mobility off of wall oxygen Ensured wall oxygen was functioning properly and delivering the prescribed flow rate to adequately support the patient's oxygen needs during stationary care activities 2 wheeled walker frame and wheels was assessed and deemed to be in proper working order prior to use during session Gait belt integrity was assessed and confirmed to be in proper condition, securely fastened, and suitable for use prior to use during session Therapeutic Interventions: SUPINE ? SIT: Assistance Level: modified independent Device: head of bed elevated and bed rail ? STATIC SITTING: Time: 1 minute Assistance Level: independent ? SIT ? STAND: Assistance Level: modified independent Device: 2WW Surface: bed ? STATIC STANDING: Assistance Level: modified independent Device: 2WW Time: 20 seconds ? GAIT: Distance: 120 feet Assistance Level:modified independent, stand by assistance x1 Device: 2WW Comment: 2 L supplemental O2 via nasal cannula utilized ? STANDING REST BREAK: Patient required standing rest break which lasted approximately 15 seconds. Subjective comments andoverall clinical presentation were monitored and assessed throughout rest break. ? GAIT: Distance: 180 feet Assistance Level:modified independent Device: 2WW Comment: 2 L supplemental O2 via nasal cannula utilized ? STAND ? SIT: Assistance Level: modified independent Device: 2WW Surface: bedside recliner Comment: 2 L supplemental O2 via nasal cannula utilized EDUCATION INTEGRATED: Role of physical therapy in the acute care setting Emphasized the importance of self-advocating for physical health needs and requesting assistance from nursing and [employer] staff for mobility throughout the day Importance of out of bed mobility in the acute care setting for helping prevent DVT due to immobility Safe transfer techniques Fall prevention Interdisciplinary Communication: The patient's status was discussed and the following coordination of care occurred with the RN Patient positioned safely with call light in reach; needs met and no outstanding questions Assessment If skilled therapy is recommended, skilled therapy can include physical therapy provided by home health, outpatient clinic, or a post-acute facility. The location of these services is determined by the patient's care team in partnership with patient/family. From a physical therapy perspective, the level of care above has been recommended for Mr. Perez after hospital discharge. This level of care is based on his functional abilities during today's session. This may change throughout the hospital course and will be updated as appropriate. Clinical Impression: Patient is a 89 year old male that was evaluated following receiving an acute care physical therapyorder from a member of the patient's medical team. During evaluation and treatment, patient was able to complete bed mobility, sitting to standing/standing to sitting transitions, and ambulation without substantial impairment or difficulty. Based on their tolerance to evaluation, it does not appearthat further care from acute care physical therapy is indicated at this time. Overall, the patient tolerated examination and treatment well and all patient/caregiver questions were answered. Patient modesty and integrity were maintained throughout and consent was given throughout. There is no identified skilled acute care PT need at this time. Patient and PT agree to mutual discontinuation of acute care physical therapy order at this time. Current Assist & Equipment Recommendations: Bed Mobility: 1 assist with 2 L SpO2 via nasal cannula Transfers: 1 assist with gait belt and 2WW with 2 L SpO2 via nasal cannula Ambulation/Mobility: 1 assist with gait belt and 2WW with 2 L SpO2 via nasal cannula Overall, the patient tolerated examination and treatment well and all patient/caregiver questions were answered. Patient modesty and integrity were maintained throughout and consent was given throughout. Plan Functional Goals: PT Inpatient Goals PT Goal #1: No goals necessary given no skilled need identified to justify follow up Marcos Perez has Good rehab potential to meet the expected outcomes in a reasonable period of time. Treatment Plan: Plan: Discontinue PT PT Frequency: One-time visit Requires Inpatient Follow-Up: No Treatment interventions may include: Treatment/Interventions: Therapeutic exercise, Therapeutic functional activity, Gait training Tiered PT Evaluation Codes: Comorbid Conditions: Other (Comment) (History of illness or injury, presence of acute or chronic symptoms, and record of previous medical and/or surgical intervention.) Personal Factors: Other (Comment) (Current living environment, availability of supportive relationships) Examination elements: 4+ Clinical Presentation: Stable Clinical Decision Making: Low complexity clinical decision making Time Spent with Patient Evaluations PT Eval - Low Complexity: 20 min Time Tracking Total Treatment Time (min): 20 min Mayank Gonzalez P.T., D.P.T. * Libby Morataya R.N. - 12/07/2024 12:23 PM CDTAssociated Order(s): IP CONSULT TO CARE MANAGEMENT; IP CONSULT TO CARE MANAGEMENT Images from the original note were not included. Discharge Planning Assessment SUBJECTIVE Assessment Information Referral Data Referral Source: Early Screen for Discharge Planning Referral Reason: Discharge Planning Discharge Planning: Assisted living Previous Assessment: Yes Previous assessment done on: 11/19/24 Previous assessment done by: Georgie Jasso R.N. Research Quality Assurance Analyst Services Used: No Primary Language: Italian Research Quality Assurance Analyst Services Used: No Person(s) Present During Interview: patient and daughter Naa History of Present Illness #1 Sepsis (HCC) Social History Marital Status: Family / Household: lives alone Support System: spouse, children, and family members Social Drivers of Health with Concerns No concerns present OBJECTIVE Finance/Insurance Primary insurance: MEDICARE A AND B Secondary insurance: [employer] benefits: No Advance Directives Legal Decision Maker: Self Advance Directives: POLST/POST, On file Baseline Functional Status Baseline Activities of Daily Living Mobility: Independent, Requires aide of device Dressing: Independent Feeding: Independent Bathing: Needs assistance Grooming: Independent Toileting: Independent Behavior: Appropriate, Pleasant, Calm, Cooperative, Oriented Communication: Can write, Talks, Understands speaking, Understands Italian, Reads Shopping: Dependent Medication Management: Dependent Housekeeping: Needs assistance Meal Prep: Dependent Assistive Devices: BiPAP/CPAP/VPAP, Cellphone, Eyeglasses, Walker - four wheeled, Oxygen, Other (Comment), Scooter, Grab bars - toilet Home Oxygen Company: [employer] Services/Resources: Intermittent supervision Transportation: Support from family Managing Finances: Needs assistance Baseline Services/Resources Primary care clinic and provider: Patient Care Team Relationship Specialty Notifications Start End Angel Arredondo M.D. External Primary Care Physician Family Medicine Yes. All results 11/17/24 Address: [address] [place] [id number] Services/Resources: Intermittent supervision Additional Resources: Additional Services: NA Anticipated Needs Functional Status: Housekeeping, Shopping, Transportation use (drive car, use taxi/bus), Meal preparation, Medication set-up/administration, Bathing Assistive Devices: None Anticipated Modifications to the Patient's Home: None Transportation Needs: Support from family Does the patient need discharge transport arranged?: No Anticipated Discharge Destination: [facility] or [facility]mediate Care Facility Referrals Initiated: Destination - Admitted Since 12/06/2024 Service Provider Request Status Services Address Phone Fax Patient Preferred [facility] Pending - No [facility] Sent [facility] [address] [facility] [phone] -- and Durable Medical Equipment - Admitted Since 12/06/2024 Service Provider Request Status Services Address Phone Fax Patient Preferred [facility] Selected Durable Medical Equipment [address], [facility] [phone] -- social worker school provided Discharge Planning Guide ([id number]), information regarding the dismissal process, and the Senior Linkage Line ([place] Board on Aging) handout. ASSESSMENT / PLAN ASSESSMENT: The social worker school met with Marcos Perez to discuss his current hospitalization and homegoing needs. The patient was unaccompanied. The patient was a reliable historian. The role of social worker school was reviewed. The patient reviewed his prior level of care and support system. The patient receives support from his , daughter, and assisted living staff. Marcos resides alone in a assisted living facility with level entry. Housekeeping, grocery shopping, meal prep, and other household responsibilities have previously been completed by patient's children and facility staff. Cecil ambulates with a four wheel walker and also utilizes a scooter to get around his assisted living facility. He receives all his meals, medication management, and bathing assist twice weekly from the facility staff. Patient's Marie also resides at assisted living. They each have separate apartments due to each having oxygen concentrators and scooters and the need for extra space. Their apartments are next door to each other. Cecil intends on returning to assisted living at discharge. He states one of his 3 children will provide transportation. - At this time, the care team anticipates the patient requires the following service(s) to be reconnected: oxygen and assisted living facility. The patient identified the following as their current vendor(s): [facility] and [facility] [employer]. The patient's potential needs at dismissal based on their home setting, previous needs and responsibilities, homebound status, and relevant assessments were discussed. The patient will be safe and supported to discharge to [facility] when medically ready. Support will be provided by patient's children and facility staff. social worker school recommendations include: discussing needed assistance with family, friends, or neighbors . Pending hospital course and medical readiness, no barriers to dismissal have been identified at this time. The following hospital-based consult orders and/or referrals placed or requested: PT/OT. PLAN: The patient agrees with the following plan. Patient's Anticipated Discharge Destination: Anticipated Discharge Destination: [facility] or [facility]mediate Care Facility Destination: Assisted Living Destination - Admitted Since 12/06/2024 Service Provider Request Status Services Address Phone Fax Patient Preferred [facility] [address] [facility] [phone] -- Contact: (Mady) Patient was receiving the following care: Assistance with bathing, medication management, CPAP and oxygen. Recently (last two weeks) has been needing more morning help with getting dressed and hygiene. Receives all meals from facility Patient cannot return on weekend. Patient needs to be back by 2:00 PM . Additional equipment needed for return: NA Patient cannot return if needing two assist or IV antibiotics. COVID screening needed before patient can [...] - Provide written prescriptions for all narcotics. 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 The patient appear(s) to have an understanding of this. -Will continue to follow and assist if needs arise. Oxygen Reconnect: Durable Medical Equipment - Admitted Since 12/06/2024 Service Provider Services Address Phone Fax Patient Preferred [facility] Durable Medical Equipment [address], [place] [address] -- Contact: intake Respiratory Equipment : POC and concentrator Oxygen provider reports patient's current orders are for 2 liters conserving NURSING: - Arrange transportation oxygen tank if needed. - If new oxygen requirements are needed, assist primary service with new prescription and fax to provider. PRIMARY SERVICE: - Complete and sign new oxygen prescription if needed. 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 The patient appear(s) to have an understanding of this. -Will continue to follow and assist if needs arise. Transportation upon dismissal will be provided by family--one of patient's children will transport. social worker school encouraged the patient to reach out with any questions/concerns. Care Management will continue to assess for homegoing needs with the interdisciplinary team. Signed by: Libby Morataya R.N. 12/07/2024 * Katja West M.A., [facility] - 12/07/2024 11:00 AM CDT Speech Pathology Dysphagia Videofluoroscopic Swallow Study (VFSS) Acute Care Session Type: Evaluation Length of session: 60 minutes Time of Dysphagia Session: 1100 SUBJECTIVE Referred By: [facility] Pulmonary Medicine [facility] Reason for Consult: Dysphagia History: Marcos Perez is a very pleasant 89-year-old man referred to speech pathology for evaluation of swallowing. Medical history is significant for but not limited to atrial fibrillation on Xarelto, DANAE, eosinophilic asthma, hyperlipidemia, GERD, progression, prolonged QT syndrome, HFpEF (EF 53% on 09/12/23) complete heart block s/p pacemaker 1998, mild CAD and NSTEMI 2018 with no stents. He was admitted to [facility] on 12/06/2024 due to fever and dyspnea. He was recently hospitalized at the end of October with community-acquired pneumonia and again at the beginning of November with worsening dyspnea, subjective fever, hypoxia, and night sweats concerning for recurrent pneumonia. Please refer to EHR for further details. The patient was seen in his private room. He had a previous video fluoroscopic swallow study in 2019 with occupational therapy which show transient penetration when taking large, consecutive swallowsof thin liquids. He reports that currently, he has intermittent coughing during oral intake. He finds that this happens most often when he opens his mouth to take a bite of food. He hypothesizes thathe breathes in at this moment and inhales material. He denies the feeling of food sticking in his throat or difficulty swallowing pills. He maintains a regular consistency diet without restriction. Pain None reported OBJECTIVE Oral Motor Dentition: Dentures top, Dentures bottom Facial Symmetry: Within Functional Limits (WFL) Labial Structure and Function: Within Functional Limits (WFL) Lingual Structure and Function: Within Functional Limits (WFL) Palatal Structure and Function: Within Functional Limits (WFL) Mandible Strength and Function: Within Functional Limits (WFL) Motor Speech Voice: Within Functional Limits (WFL) Resonance (STEAM AND POWER SUPERVISOR Function): Within Normal Limits (WNL) Articulation: Within Functional Limits (WFL) Rate and Prosody: Within Normal Limits (WNL) Intelligibility: Intelligible Consistencies Assessed: Level 0 Thin Presentation: Straw Oral: Within Functional Limits (WFL) Pharyngeal: Within Functional Limits (WFL) Level 4 Puree Presentation: Spoon Oral: Within Functional Limits (WFL) Pharyngeal: Within Functional Limits (WFL) Flowsheet Row Most Recent Value Description of Procedure Previous MBS/VFSS Yes Results and Recommendations 2019, penetration of thin on consecutive swallows Planes Tested Lateral, AP Type Assessment MBS IMP Consistencies Assessed (MBS) Consistencies Assessed Yes Level 0 Thin Lip Closure 0: No labial escape Tongue Control 2: Posterior escape of less than half of bolus Bolus Transport/Lingual Motion 0: Brisk tongue motion Oral Residue 1: Trace residue lining oral structures Oral Residue Location Tongue, Palate Onset of Pharyngeal Swallow 3: Bolus head in pyriforms Soft Palate Elevation 0: No bolus between soft palate (SP)/pharyngeal wall (PW) Laryngeal Elevation 0: Complete superior movement of thyroid cartilage with complete approximation of arytenoids to epiglottic petiole Anterior Hyoid Excursion 0: Complete anterior movement Epiglottic Movement 0: Complete inversion Laryngeal Vestibular Closure 0: Complete, no air/contrast in laryngeal vestibule Pharyngeal Stripping Wave 0: Present - complete Pharyngoesophageal Segment Opening 0: Complete distension and complete duration, no obstruction of flow Tongue Base Retraction 2: Narrow column of contrast or air between TB and PW Pharyngeal Residue 2: Collection of residue within or on pharyngeal structures Pharyngeal Residue Location Diffuse (>3 areas) Penetration/Aspiration Scale 8: Material enters the airway, passes below the vocal folds, and no effort is made to eject Penetration Yes, before the swallow Aspiration Yes, during the swallow Level 2 Mildly Thick Lip Closure 0: No labial escape Bolus Transport/Lingual Motion 0: Brisk tongue motion Oral Residue 1: Trace residue lining oral structures Oral Residue Location Palate, Tongue Onset of Pharyngeal Swallow 3: Bolus head in pyriforms Soft Palate Elevation 0: No bolus between soft palate (SP)/pharyngeal wall (PW) Laryngeal Elevation 0: Complete superior movement of thyroid cartilage with complete approximation of arytenoids to epiglottic petiole Anterior Hyoid Excursion 0: Complete anterior movement Epiglottic Movement 0: Complete inversion Laryngeal Vestibular Closure 0: Complete, no air/contrast in laryngeal vestibule Pharyngeal Stripping Wave 0: Present - complete Pharyngeal Contraction AP View only 0: Complete Pharyngoesophageal Segment Opening 0: Complete distension and complete duration, no obstruction of flow Tongue Base Retraction 2: Narrow column of contrast or air between TB and PW Pharyngeal Residue 1: Trace residue within or on pharyngeal structures Pharyngeal Residue Location Valleculae, Tongue Base Esophageal Clearance 0: Complete clearance, esophageal coating Penetration/Aspiration Scale 1: Material does not enter airway Penetration No Aspiration No Level 4 Puree Lip Closure 0: No labial escape Bolus Transport/Lingual Motion 0: Brisk tongue motion Oral Residue 1: Trace residue lining oral structures Oral Residue Location Palate, Tongue Onset of Pharyngeal Swallow 1: Bolus head in valleculae Soft Palate Elevation 0: No bolus between soft palate (SP)/pharyngeal wall (PW) Laryngeal Elevation 0: Complete superior movement of thyroid cartilage with complete approximation of arytenoids to epiglottic petiole Anterior Hyoid Excursion 0: Complete anterior movement Epiglottic Movement 0: Complete inversion Laryngeal Vestibular Closure 0: Complete, no air/contrast in laryngeal vestibule Pharyngeal Stripping Wave 0: Present - complete Pharyngoesophageal Segment Opening 0: Complete distension and complete duration, no obstruction of flow Tongue Base Retraction 1: Trace column of contrast or air between TB and PW Pharyngeal Residue 1: Trace residue within or on pharyngeal structures Pharyngeal Residue Location Tongue Base Penetration/Aspiration Scale 1: Material does not enter airway Penetration No Aspiration No Level 7 Regular Lip Closure 0: No labial escape Bolus Prep/Mastication 1: Slow prolonged chewing/mashing with complete re-collection Bolus Transport/Lingual Motion 0: Brisk tongue motion Oral Residue 2: Residue collection on oral structures Oral Residue Location Tongue, Palate Onset of Pharyngeal Swallow 1: Bolus head in valleculae Soft Palate Elevation 0: No bolus between soft palate (SP)/pharyngeal wall (PW) Laryngeal Elevation 0: Complete superior movement of thyroid cartilage with complete approximation of arytenoids to epiglottic petiole Anterior Hyoid Excursion 0: Complete anterior movement Epiglottic Movement 0: Complete inversion Laryngeal Vestibular Closure 0: Complete, no air/contrast in laryngeal vestibule Pharyngeal Stripping Wave 0: Present - complete Pharyngoesophageal Segment Opening 0: Complete distension and complete duration, no obstruction of flow Tongue Base Retraction 2: Narrow column of contrast or air between TB and PW Pharyngeal Residue 2: Collection of residue within or on pharyngeal structures Pharyngeal Residue Location Valleculae, Tongue Base Penetration/Aspiration Scale 1: Material does not enter airway Penetration No Aspiration No MBSImP Scores Oral Impairment Score 8 Pharyngeal Impairment Score 4 Esophageal Impairment Score 0 Patient/Caregiver Training and Education:results of assessment/evaluation. Patient/caregivers verbalized understanding of the information provided. Patient's needs and questions were addressed to the best of my ability and within the scope of Speech Pathology during today's session. Assessment A clinical swallow evaluation was completed using sips of water from a cup and bites of applesauce.Oral containment of both consistencies was good. Laryngeal elevation was present, 1-2 times per bolus. There was no coughing, choking, or change in vocal quality noted after any of the trials. Clinical evaluation is without signs/symptoms of aspiration. However, given the patient's recurrentpneumonia, a video fluoroscopic swallow study was recommended. Lateral and A-P views were recorded as the patient swallowed controlled and larger amounts of thin barium, mildly thick barium, applesauce mixed with barium pudding, and cookie tagged with barium pudding. There was premature spillage of liquids into the pharynx on some trials. Velopharyngeal closure was complete. The pharyngeal swallow response was triggered at the level of the pyriforms for liquids and the vallecula for the food consistencies. Range of tongue base retraction was mildly reducedand pharyngeal stripping wave was present. Hyolaryngeal elevation, anterior hyoid excursion, and epiglottic inversion were within functional limits. Due to the observed delay, there was penetration with subsequent silent aspiration of thin liquids. This resolved with small sips size and a chin tuckposture, facilitated by a straw. All consistencies left minimal to mild residue on the tongue base and in the vallecula, clearing well on subsequent swallows. Relaxation through the cricopharyngeal segment was adequate. A-P view revealed a symmetric bolus column through the pharynx and cervical esophagus. Summary: Overall, the patient is demonstrating a mild-moderate oropharyngeal dysphagia primarily characterized by a delay in swallow initiation resulting in penetration and aspiration of thin liquids. A chin tuck posture was helpful in improving airway protection. These results were reviewed in detail with the patient immediately following the swallow study. The chin tuck strategy was practiced with the patient at bedside. Speech pathology will continue to follow. Select images and clips from today's study are available in [employer]. 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 Dysphagia Short Term Goal 1 Progress Toward Goal: Goal met: complete goal Plan DYSPHAGIA RECOMMENDATIONS: Diet Recommendation-Solids: IDDSI Level 7 Regular Diet Recommendation-Liquids: IDDSI Level 0 Thin Medication Recommendation: Whole, With puree Safety Precautions: Take small sips of liquids, swallow with chin tucked down, use a straw when drinking Continue thorough oral cares. Speech pathology will continue to follow. CAPABILITY LEAD Ongoing Services: Ongoing formal Speech Pathology services Duration of Treatment: Until goals met Rehab Potential: Good documented in this encounter Nursing Notes * Kayla Damon R.N. - 12/10/2024 1:57 PM CDT Shift Goals: Clinical Goals for the Shift: Pt will get up in chair x 1, abefrile, spo2 above 90% Identify possible barriers to meeting goals/advancing plan of care: Pt on 2L in hospital. End of Shift Summary: Pt 2L bleed in for CPAP and 2L NC during the daytime. * Shwetha Arora RAnaNAna - 12/07/2024 5:42 PM CDT The patient was evaluated for Stay With Me on 12/07/24 at 5:42 PM. Based on the Criteria listed in the note: Has it been greater than 12 hours since anesthesia: Yes. Alert and Oriented x3: Yes Vital Signs Stable: Yes DTS Negative: Yes If the patient has previously had delirium, have there been 2 Negative assessed with at least 4 hours between assessments: Yes 4. BMAT Pass Level 3 or Greater: Yes If answered No to any above questions patient must remain Stay With Me. If answered Yes to all above questions then proceed to next section. Impulsive: No Orthostatic Hypotension: No Must answer No to remaining two questions to test out of Stay With Me. Use clinical judgement if you still feel patient should remain Stay With Me even if qualifying test out. Based on test out criteria and clinical judgement patient is not a Stay With Me patient. Orientation Level: Oriented x 3 Behavior: Cooperative Mobility Assessment Level 1: Sit and Shake: Pass Mobility Assessment Level 2: Stretch and Point: Pass Mobility Assessment Level 3: Stand: Pass Mobility Assessment Level 4: Modified Frederick: Pass Vitals: 12/07/24 1045 12/07/24 1142 12/07/24 1702 12/07/24 1703 BP: 112/68 Patient Position: Pulse: 72 Heart Rate: Temp: (!) 38.8 ??C 36.8 ??C 36.6 ??C 36.6 ??C Resp: 22 Height: Weight: SpO2: 95% TempSrc: Oral Oral Pain Score: * Shwetha Arora R.N. - 12/07/2024 11:00 AM CDT At about 0815, got called to the room by Eicu due to a concerning 79% SPO2 reading on NC 2L. Pt asleep then woke up. Appears flushed and reports of SOB. Noted 80's SPO2 along with the wall monitor. Checked the wall o2 connection and noted the bottom part of the flowmeter was loosely placed, then the wall tubing was still from the CPAP last night and his nasal cannula that was on his face was not connected to the wall flow meter. Increased 02 to 4L until he was satting around 91-93%. Pt stated he took off the CPAP (can't tell me when exactly), then mentioned a emilee helped him put the nasal cannula on. Also per report, pt removes his CPAP off. Educated patient to call us when he is done using his CPAP mask. Later on the day, pt weaned down to 2L NC Checked temp and noted pt to be feverish of 38.7, requested to tylenlo order, then prior to giving tylenol, temp went up to 39.2. 30 min later 38.8, then down to 36.5-36.7 all through the days. IV antibiotics given. Pt looks a lot better and verbalizes feeling better. Blood pressure 112/68, pulse 72, temperature 36.6 ??C, resp. rate 22, height 167.6 cm, weight 85.5 kg, SpO2 95%. documented in this encounter ED Notes * Sharona Osborne M.D. - 12/06/2024 3:50 PM CDT I have personally seen and examined this patient. I have fully participated in the care of this patient. I have reviewed all clinical information including history, physical exam, orders, and plan. Juan with the note of the resident. Marcos Perez is a 89 y.o. male with a history of atrial fibrillation on anticoagulation, obstructive sleep apnea, eosinophilic asthma, hyperlipidemia, gastroesophageal reflux disease, depression, prolonged QT syndrome, heart failure with preserved ejection fraction (EF 53%), history complete heart block April 1998 s/p pacemaker, and mild CAD via angiogram 04/2023, prior NSTEMI 2019 no stents placed. Baseline oxygen requirement is 2 L with CPAP at night and with activity who presents for evaluation of fever. He reports 2 days ago he was short of breath at rest. This morning, he felt hubbard bjectively febrile and sweaty. Staff at assisted living measured a temperature of 103.7F. He was admitted 11/09 for CAP. Initially treated with rocephin and doxycycline (transitioned to cefpodoxime) and then again on 11/16 for HCAP. Treated with cefepime. RPP and sputum cultures negative. He has jenna prednisone taper, currently on 30mg. Concerned about viral vs bacterial respiratory infection with his recent admissions and his recurrent fevers. Also considered UTI with increased urinary frequency starting this morning. Labs including blood cultures obtained as well as imaging. Empiric antibiotics started. Anticipate he will likelyrequire admission. ED Course as of 12/07/24 0003 Lindsey Dec 06, 2024 1536 CBC with Differential, Blood(!): Hemoglobin 12.9(!) Hematocrit 39.6 Erythrocytes 4.58 MCV 86.5 RBC Distrib Width 14.8(!) Platelet Count 230 Leukocytes 17.6(!) Neutrophils 16.47(!) Lymphocytes 0.48(!) Monocytes 0.54 Eosinophils 0.03 Basophils 0.03 Leukocytosis 1537 DX Chest AP or PA and Lateral 2 Views Opacities in the left lung base have improved since 11/16/2024. No other change. Reticulation in thelung bases representing interstitial fibrosis. No new consolidation or effusion. Pacer. 1537 Troponin T, Baseline with 2 Hour/6 Hour Reflex Biomarker Panel(!): Troponin T, Baseline, 5th gen 73(!) Elevated but at baseline. Will trend 1558 Considered PE but he is anticoagulated on Xarelto, which makes this less likely. 1637 Administration of 30 mL/kg of crystalloid fluids would be detrimental or harmful for this patient due HFpEF. Plan to hold off administering crystalloid at this time. 1842 CT Chest without IV Contrast 1. Decreased patchy groundglass opacities in the upper lobes with persistent micronodularity and groundglass opacities in the lung bases. Findings are suggestive of improving infectious/inflammatory process, though waxing/waning of patient's interstitial lung disease is also a consideration. 2. 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 1843 WBC: None Seen Final Diagnoses: as of 12/07/24 0003 Sepsis (HCC) Care Handoff Row Name 12/06/24 1944 Care Handoff Type of Handoff Admission handoff Sharona Osborne M.D. 12/07/24 0004 * Samy Leger M.D., Ph.D. - 12/06/2024 3:19 PM CDT SUBJECTIVE CHIEF COMPLAINT/REASON FOR VISIT Fever and Shortness of Breath HISTORY OF PRESENT ILLNESS Marcos Perez is a 89-year-old male with a history of NSTEMI, atrial fibrillation (on Xarelto), CAD, CHF, eosinophilic asthma, DANAE, GERD, and hyperlipidemia who presents to the Emergency Department for the evaluation of a fever and shortness of breath. The patient was hospitalized from 11/09 to 11/12 for management of community acquired pneumonia. He was discharged home on cefepime and doxycycline. However, his cough and shortness of breath continued to persist, warranting hospitalization again on 11/16 for suspected hospital acquired pneumonia. He was discharged to his assisted living facility on 10/8 on his baseline oxygen needs, able to ambulate, void, and have bowel movements. He was discharged on a prednisone taper. For the past two days he has been experiencing shortness of breath, requiring him to utilize 2 L supplemental oxygen at rest. This morning he woke up diaphoretic and febrile 103.7 degrees Fahrenheit at his assisted living facility. He was given acetaminophen which brought his fever down to 101 degrees Fahrenheit. However, given his recurrent symptoms he was brought to the [facility] ED for evaluation. Here in the ED he endorses some polyuria. His daughter states that she observed some labored breathing earlier today, though this has since resolved. She also notes that his abdomen is very protuberantcompared to his baseline. He denies any cough, rhinorrhea, hematuria, abdominal pain, nausea, dysuria, penile discharge, penile swelling, or penile pain. He has no known sick contacts. History provided by: Patient, relative and medical records family therapist needed/used: no REVIEW OF SYSTEMS A full review of systems is negative except as otherwise noted in the HPI. OBJECTIVE Initial Vitals Temperature 12/06/24 1257 36.8 ??C Pulse Rate 12/06/24 1257 94 Heart Rate 12/06/24 1430 81 Resp Rate 12/06/24 1257 20 Blood Pressure 12/06/24 1257 109/61 SpO2 12/06/24 1257 96 % Pain Score 12/06/24 1430 0 - No pain PHYSICAL EXAMINATION Constitutional: Nursing note and vitals reviewed. No distress. HENT: Head: Normocephalic and atraumatic. No signs of injury. Right Ear: Tympanic membrane normal. Left Ear: Tympanic membrane normal. Nose: Nose normal. No nasal discharge. Mouth/Throat: Oropharynx is clear and moist. Mucous membranes are moist. No tonsillar exudate. TM's clear. No lymphadenopathy. Eyes: Conjunctivae and EOM are normal. Pupils are equal, round, and reactive to light. Neck: Neck supple. No neck adenopathy. Cardiovascular: Normal rate and regular rhythm. No murmur heard.Capillary refill: takes less than 3 secondsEdema: edema noted (1+ pitting edema bilaterally) Pulmonary/Chest: Effort normal and breath sounds normal. No respiratory distress. He has no wheezes. Left upper lung field with diminished breath sounds and crackles on the right side. Saturating wellon 2 L nasal cannula. Abdominal: Protuberant, tympanic abdomen, symmetrical without lesions. Normoactive bowel sounds. Soft, nontender in all quadrants, without masses or hepatomegaly. No shifting dullness. Negative Quiroga's sign. No suprapubic tenderness. Musculoskeletal: General: Edema (Trace bilateral edema lower extremity) present. No tenderness or deformity. Normal range of motion. Cervical back: Normal range of motion and neck supple. Neurological: Alert. He has normal reflexes. He is not disoriented. Skin: Skin is warm, dry and intact. He is not diaphoretic. Psychiatric: He has a normal mood and affect. Behavior is normal. Gen: Alert, conversational, interactive. Does not appear acutely ill or in obvious distress. Skin: Observable skin without rashes or lesions. Eyes: PERRLA. Sclera anicteric. Extraocular movements intact. Neuro: Spontaneous and symmetrical movement without tremor. Strength and sensation grossly intact in bilateral upper and lower extremities. Psych: A&Ox3. Appropriate mood and affect. No attention deficits. No evidence of disorganized thinking. ENT: Hearing grossly intact. TMs clear. Neck supple without lymphadenopathy. No pharyngeal erythema, tonsillar exudates, or lesions. Pulm: Non-labored breathing, without nasal flaring or accessory muscle use. Mild bibasilar cracklesR > L. Otherwise no wheezes, stridor, rhonchi. CV: RRR. No murmurs. Radial and dorsal pedis pulses are symmetrical and strong bilaterally. 1+ edema on bilateral lower extremities. GI: P ASSESSMENT/PLAN Marcos Perez is an 89-year-old male who presents to the Emergency Department with fever and shortness of breath. On arrival the patient is afebrile and hemodynamically stable, saturating at96% on 2 L nasal cannula. On exam he has diminished breath sounds in his left upper lobe. There arecrackles present on the right. Differential diagnosis includes, but is not limited to hospital acquired pneumonia, influenza, COVID-19, RSV, UTI, pulmonary fibrosis, other viral illness, and less likely PE. Workup was initiated in triage with an EKG, a chest X-ray, and labs including cardiac biomarkers and PT. We will further workup with a CT chest, a respiratory pathogen panel, VBG and blood cult ures, and urinalysis with bacterial cultures. We will also administer cefepime. Final disposition pending ED course. Assessment and Plan I reviewed the following external records: office records. ED Course as of 12/06/24 1851 Lindsey Dec 06, 2024 1517 ECG 12 Lead Paced rhythm. 1518 DX Chest AP or PA and Lateral 2 Views Opacities in the left lung base have improved since 11/16/2024. No other change. Reticulation in thelung bases representing interstitial fibrosis. No new consolidation or effusion. Pacer 1613 NT-Pro B-Type Natriuretic Peptide (BNP)(!): NT-Pro BNP 883(!) Elevated from approximate baseline in 200-300. Does not appear volume overloaded on exam. Unilateral crackles, chest x-ray reassuring against cardiogenic pulmonary edema. 1615 Basic Metabolic Panel(!): Potassium, P 4.3 Sodium, P 135 Chloride, P 94(!) Bicarbonate, P 29 Anion Gap, P 12 BUN (Blood Urea Nitrogen), P 27(!) Creatinine 1.23 Estimated GFR (eGFR) 56(!) Calcium, Total, P 9.2 Glucose, P 138 Renal function approximating patient's baseline 1634 CBC with Differential, Blood(!): Hemoglobin 12.9(!) Hematocrit 39.6 Erythrocytes 4.58 MCV 86.5 RBC Distrib Width 14.8(!) Platelet Count 230 Leukocytes 17.6(!) Neutrophils 16.47(!) Lymphocytes 0.48(!) Monocytes 0.54 Eosinophils 0.03 Basophils 0.03 Leukocytosis with neutrophilic predominance. 1647 Venous Blood Gas and Electrolytes CG8+, POCT(!): Sample Site, POCT Venstick pH, Venous, POCT, B 7.41 pCO2, Venous, POCT, B 52(!) pO2, Venous, POCT, B 28 Base Excess, Venous, POCT, B 8 HCO3, Venous, POCT, B 33 Sodium, POCT, B 134(!) Potassium, POCT, B 4.6 Calcium, Ionized, POCT, B 4.60(!) Glucose, POCT, B 115 Hematocrit, POCT, B 41.0 Consistent with chronic respiratory acidosis with appropriate metabolic compensation . Mild hyponatremia consistent with patient's baseline. 1649 Lactate for Sepsis with Reflex, POCT(!): Lactate, POCT 2.47(!) Lactic acidosis 1649 Troponin T, 2 hr, 5th gen(!): 59 1649 2H Delta(!): -14 Delta troponin of 14 likely attributable to demand ischemia in the setting of probable pneumonia. Range remains concordant w/ patient's previous baseline. We will continue to trend. 181 Urinalysis, with Microscopic: Urine, Midstream: Source Urine, Urine, Midstream Color, U Yellow Clarity Clear Unremarkable urinalysis. 1814 CT Chest without IV Contrast 1. Decreased patchy groundglass opacities in the upper lobes with persistent micronodularity and groundglass opacities in the lung bases. Findings are suggestive of improving infectious/inflammatory process, though waxing/waning of patient's interstitial lung disease is also a consideration. 2. 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 1840 CT Chest without IV Contrast 184 Given patient's high fever with leukocytosis, lactic acidosis, new oxygen requirement at baseline, and CT scan concerning for waxing/waning of patient's ILD in the setting of his asthma, decision was made to admit patient to pulmonology for further management of hospital-acquired pneumonia. Discussed with the patient with plan and family at bedside, questions answered to patient's satisfaction he is in agreement with the plan. Final Diagnoses: as of 12/06/241850 Sepsis (HCC) My ECG interpretation is documented in ED Course. My Plain Films interpretation is documented in ED Course. My CT Scan interpretation is documented in ED Course. I personally performed the services described in this documentation, as scribed in my presence, andit is both accurate and complete. Samy Leger M.D., Ph.D. Resident 12/06/24 1647 * Malinda Blanco R.N. - 12/06/2024 1:00 PM CDT Presents with a fever and SOB. States fever was 103.7 this morning, took Tylenol around 0900. SOB has dissipated since his fever broke. States he has had urinary frequency as well. Malinda Blanco R.N. 12/06/24 1301 documented in this encounter Miscellaneous Notes * Hospital Course - Nicole Burden M.D. - 12/07/2024 1:01 AM CDT is a 89 y.o. with PMH of recent hospitalization for pneumonia and eosinophilic asthma hospitalized for pneumonia Co-morbid conditions: atrial fibrillation on Xarelto, DANAE, hyperlipidemia, GERD, progression, prolonged QT syndrome, HFpEF (EF 53% on 09/12/23) complete heart block s/p pacemaker 1998, mild CAD and NSTEMI 2018 with no stents Events Leading to Hospitalization: He reports dyspnea on wakening with fever to 103.7 at his assisted living facility and was requiring supplemental oxygen at rest. Given his recent admissions for pneumonia, he presented to the emergency department for further evaluation. ED Course: In the ED, laboratory workup was remarkable for lactate of 2.4, leukocytosis to 17.6. CT chest without IV contrast was obtained and demonstrated decreased patchy ground-glass opacities in the upper lobes with persistent micro nodularity and ground-glass opacities in the lung bases suggestive of improving infectious/inflammatory process versus waxing/waning of patient's ILD. Blood cultures were obtained, he was given 1 dose cefepime, and admitted to pulmonology for further management. [facility] Pulmonary Medicine [facility] The patient was stable on transfer to the pulmonary medicine service. ILD with likely exacerbation Due concern for likely ILD flare as primary etiology, he was initiated on a prednisone taper starting at 60 mg on 12/07 with significant improvement in symptoms. He was instructed to continue his steroid taper at time of discharge and to continue on 20mg until follow-up. He was initiated on Bactrimfor PJP prophylaxis, and was recommended to continue his PPI as well as vitamin-D while on this taper. He was also provided with gentle diuresis to improve his respiratory status. It was felt that his asthma was well controlled and not contributing to his respiratory status. Possible pneumonia, UTI Infectious workup was notable for -1 3 beta D glucan, as well as 10-100k CFUs of E coli. Other infectious workup was negative at time of discharge. Given his nonspecific symptoms and uncertain diagnosis, he was treated with a 5 day course of antibiotics for community-acquired pneumonia (ceftriaxoneand doxycycline) with concurrent coverage of E coli UTI. He was evaluated by [employer] [facility], who diagnosed himwith mild moderate oropharyngeal dysphagia. He was prescribed a regular diet with chin tuck. Elevated creatinine He had a mildly elevated creatinine, though not to the level of a stage I DENITA. This required dose reduction of rivaroxaban to 15mg, and should be followed-up in the outpatient setting with renal function testing and dose adjustments back to 20mg as appropriate. He was continued on his home diuretics at time of discharge. He was discharged to Assisted Living on 12/10/24 in good condition. He was scheduled for outpatientappointment with PCP and his primary mortar maker for further workup. documented in this encounter Plan of Treatment DateTypeDepartmentCare Team (Latest Contact Info)Rzdffmiiusn58/29/2025 10:15 AM CSTClinical Communication Virtual Review in [address] [address] 02/12/2025 11:15 AM CSTAppointment Department of Radiology, [facility], in [address] [address] Lilli Moore M.D. [address] [place] [address] 02/12/2025 11:50 AM CSTAppointment Department of Laboratory Medicine and Pathology, [facility], in [place], [place] [address] [place] [address] Lilli Moore M.D. [address] [place] [address] 02/12/2025 1:30 PM CSTOffice Visit Division of Pulmonary Medicine in [place], [place] [address] [place] [address] Lilli Moore M.D. [address] [place] [address] NameTypePriorityAssociated DiagnosesOrder SchedulePulmonary Medicine office visit (clinic)Outpatient ReferralRoutineExpected: 01/04/2025, Expires: 03/12/2026documented as of this encounter Procedures Procedure NamePriorityDate/TimeAssociated DiagnosisCommentsFLOW FISH, TELOMERE QJFOWXMoynngd65/27/2025 12:24 AM CDT CBC WITH DIFFERENTIAL, KRksjqpy72/27/2025 12:24 AM CDT BASIC METABOLIC PANEL, S/NHxydlfh92/27/2025 12:24 AM CDT BASIC METABOLIC PANEL, S/BJmtwdba29/26/2025 12:39 AM CDT CBC WITH DIFFERENTIAL, JKsfthxq53/26/2025 12:38 AM CDT HEMOGLOBIN A1C, ZNzjbxas76/26/2025 12:33 AM CDT MAGNESIUM, SKjdey4512/08/2024 6:07 PM CDT BASIC METABOLIC PANEL, S/WLpplk6012/08/2024 6:07 PM CDT ANCA VASCULITIS PANEL, LNpopzac20/25/2025 1:34 AM CDT AB TO EXTRACTABLE NUCLEAR AG EVAL, NTfbkraz59/25/2025 1:34 AM CDT CONNECTIVE TISSUE DISEASE CASCADE, EDYTA, HDirqwin43/25/2025 1:34 AM CDT CBC WITH DIFFERENTIAL, ILewkkqh53/25/2025 1:33 AM CDT BASIC METABOLIC PANEL, S/QXypkznu98/25/2025 1:33 AM CDT DIPSTICK, IJfzzrop19/24/2025 7:13 PM CDT MICROSCOPIC NAFSMKCOCPbpmhqf84/24/2025 7:13 PM CDT PH, HVyodguy99/24/2025 7:13 PM CDT OSMOLALITY, ZAcyxynn63/24/2025 7:13 PM CDT URINALYSIS WITH OTNJPTJHXPNCgkdlze61/24/2025 7:13 PM CDT (1, 3) NTBI-O-PFONYA (FUNGITELL), GHfehshz21/24/2025 3:51 PM CDT FL SWALLOW FUNCTION WITH VIDEO AND SPEECH OR OT FOR RSTRAD - Timed (for specific dates/times)12/07/2024 11:23 AM CDT HOWDtpxlyi04/24/2025 7:26 AM CDT CBC WITH DIFFERENTIAL, QMgucfcb98/24/2025 6:03 AM CDT BASIC METABOLIC PANEL, S/IFppluid30/24/2025 6:03 AM CDT HEPATIC FUNCTION PANEL, HMsuorqi56/24/2025 6:00 AM CDT C-REACTIVE PROTEIN (CRP), S/LZjhxlxs55/24/2025 6:00 AM CDT LACTATE, B/UQhnyilx81/24/2025 12:10 AM CDT TROPONIN T, 6H, 5TH GEN, YGbnqq7812/06/2024 7:52 PM CDT LACTATE, B/JNjasi0312/06/2024 7:[address] CHEST WITHOUT IV CONTRASTRAD - Semiurgent (Fast; most ED patients; some inpatients)12/06/2024 4:43 PM CDT LACTATE FOR SEPSIS WITH REFLEX, GKYINZTM48/23/2025 4:33 PM CDT VBG & LYTES CG8+, POCT, BSTAT1 4:32 PM CDT BACTERIA / THERESA CULTURE, PLVHGEPMO63/23/2025 4:32 PM CDT BACTERIA / THERESA CULTURE, MPKWZFTBY61/23/2025 4:30 PM CDT DIPSTICK, USTAT1 4:28 PM CDT RESPIRATORY PANEL, PCR, DCRZOZ15 4:28 PM CDT MICROSCOPIC AZKEUAYCXGZWY49/23/2025 4:28 PM CDT BACTERIAL CULTURE, AEROBIC + SUSC, AWHZQBICZ91/23/2025 4:28 PM CDT PH, USTAT1 4:28 PM CDT OSMOLALITY, USTAT1 4:28 PM CDT URINALYSIS WITH OXPJYOUWKTHTDQK78/23/2025 4:28 PM CDT TROPONIN T, 2H/6H REFLEX, 5TH GEN, LXbtth0112/06/2024 3:54 PM CDT TROPONIN T, BASELINE, 5TH GEN, PSTAT1 1:40 PM CDT NT-PRO B-TYPE NATRIURETIC PEPTIDE (BNP), SSTAT1 1:40 PM CDT PROTHROMBIN TIME (PT), PSTAT1 1:40 PM CDT CBC WITH DIFFERENTIAL, BSTAT1 1:40 PM CDT BASIC METABOLIC PANEL, S/PSTAT1 1:40 PM CDT DX CHEST AP OR PA AND LATERAL 2 VIEWSRAD - Semiurgent (Fast; most ED patients; some inpatients)12/06/2024 1:23 PM CDT YDDKUAU7012/06/2024 12:46 PM CDT documented in this encounter Results * Pulmonary Function Tests (01/04/2025 8:30 AM AMERICAN STUDIES PROFESSOR)ComponentValueRef RangeTest MethodAnalysis TimePerformed AtPathologist SignaturePostFVC3.18L103/06/2024 2:31 PM CSTMAYO SENTRY CKQDYUqyrPPH55.60L103/06/2024 2:31 PM CSTMAYO SENTRY SUITEFEV1/FVC POST81.84%01/04/2025 2:31 PM CSTMAYO SENTRY SUITEFEF 25-75 % POST2.96L/01/04/2025 2:31 PM CSTMAYO SENTRY SUITEPEF POST9.69L/01/04/2025 2:31 PM CSTMAYO SENTRY SUITEPIF POST7.31L/01/04/2025 2:31 PM CSTMAYO SENTRY SUITEPost FEF50/WHP1818.05%01/04/2025 2:31 PM CSTMAYO SENTRY SUITEFET POST 10.88exd2803/06/2024 2:31 PM CSTMAYO SENTRY DEQCDKbjksPylf13.001/min01/04/2025 2:31 PM CSTMAYO SENTRY SUITEFVC3.07L103/06/2024 2:31 PM CSTMAYO SENTRY SUITE FEV12.58L103/06/2024 2:31 PM CSTMAYO SENTRY SUITEFEV1/FVC83.87%01/04/2025 2:31 PM CSTMAYO SENTRY RJBWZGAH83-67%3.17L/01/04/2025 2:31 PM CSTMAYO SENTRY SUITE PEF PRE9.68L/01/04/2025 2:31 PM CSTMAYO SENTRY SUITEPIF PRE8.07L/01/04/2025 2:31 PM CSTMAYO SENTRY SUITEPre FEF50/TEO1531.57%01/04/2025 2:31 PM CSTMAYO SENTRY SUITEFET PRE10.23ctk7603/06/2024 2:31 PM CSTMAYO SENTRY SUITEDLCO7.94 ml/(min*mmHg)01/04/2025 2:31 PM CSTMAYO SENTRY SUITEDLCOc8.48ml/(min*mmHg) 01/04/2025 2:31 PM CSTMAYO SENTRY WCWBXAW38.50g(Hb)/dL01/04/2025 2:31 PM AMERICAN STUDIES PROFESSOR JONES SENTRY SUITEPre % Pred VA SINGLE BREATH4.32L103/06/2024 2:31 PM CSTMAYO SENTRY SUITETLC4.69L103/06/2024 2:31 PM CSTMAYO SENTRY SUITEFRC Pre2.21L 01/04/2025 2:31 PM CSTMAYO SENTRY SUITERV1.42L103/06/2024 2:31 PM CSTMAYO SENTRY SUITERV % TLC PRE30.18%01/04/2025 2:31 PM CSTMAST. ANTHONY'S HOSPITALSUBSTANCE YNNIHllmlfiqx03/21/2025 2:31 PM CSTSAMARITAN HOSPITALSpecimen (Source) Anatomical Location / LateralityCollection Method / VolumeCollection Time Received Time01/04/2025 8:30 AM AMERICAN STUDIES PROFESSOR Impressions [facility] - 01/04/2025 2:31 PM AMERICAN STUDIES PROFESSOR Abnormal. Mild restriction with no immediate bronchodilator response. Diffusing capacity (corrected for low hemoglobin) is severely reduced, consistent with a pulmonary parenchymal or vascular process. Oxygen saturation is decreased at rest. Exercise testing was not performed due to safety concerns. Compared to 06/08/2024, there is a reduction in pre-bronchodilator FVC, FEV1, and DLCO. Compared to 03/25/2023, there is a decrease in TLC Narrative Procedure Note Sebas Alvarez M.D. - 01/04/2025 IMPRESSION: Abnormal. Mild restriction with no immediate bronchodilator response.Diffusing capacity (corrected for low hemoglobin) is severely reduced,consistent with a pulmonary parenchymal or vascular process. Oxygensaturation is decreased at rest. Exercise testing was not performed due to safety concerns. Compared to 06/08/2024,there is a reduction in pre-bronchodilator FVC, FEV1, and DLCO. Comparedto 03/25/2023, there is a decrease in TLC Authorizing ProviderResult TypeResult StatusReid Yoseph Spivey M.D.PFT ORDERABLES Final ResultPerforming OrganizationAddressCity/State/ZIP CodePhone Number [facility] NA * CT Chest without IV Contrast (01/04/2025 8:23 AM AMERICAN STUDIES PROFESSOR)Anatomical Region LateralityModalityChest, Thoracic RST LOS, Thoracic ARZ LOS, Thoracic FLA LOS N/AComputed Tomography, Computed TomographySpecimen (Source)Anatomical Location / LateralityCollection Method / VolumeCollection TimeReceived Time Impressions 01/04/2025 8:47 AM AMERICAN STUDIES PROFESSOR 1. 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 2. Sequelae of previous granulomatous infection. Narrative 01/04/2025 8:47 AM AMERICAN STUDIES PROFESSOR EXAM: CT CHEST WITHOUT IV CONTRAST COMPARISON: 01/04/2025 and exams back to 01/10/2018 TECHNIQUE: ??Additional low-dose high-resolution images in expiration were performed. Limited pronehigh-resolution imaging was also obtained. FINDINGS: Since 12/22/2024, there has been a slight decrease in some of the groundglass opacities in both lungs. Persistent groundglass opacities greatest along the fissures, in the peripheral right middle lobe/lingula and in the posterior costophrenic sulci. Other findings compatible with fibrotic interstitial lung disease are unchanged, with areas of reticulation/linear densities greatest in the subpleural mid to lower lungs associated with architectural distortion including traction bronchiectasis. Nodefinite honeycombing. When compared with earlier studies such as 05/25/2023, the extent of fibrosis/architectural distortion has increased and the progression is more apparent when compared with 02/15/2018 but there was fibrosis and traction bronchiectasis on that exam. No significant air trapping on expiratory imaging. Calcified pulmonary granulomas. A few noncalcified pulmonary nodules such as a 4 mm subpleural nodule in the right lower lobe (series 3, image 393) are unchanged. No new or enlarging soft tissue density pulmonary nodules. No adenopathy in the chest. Calcified right hilar nodes. AV pacemaker. Regional vascular calcifications, including the coronary arteries , aortic annulus/valve and mitralannulus. Age-related changes in the skeleton, but no aggressive osseous lesions are identified. Splenic and hepatic granulomas. Somewhat atrophic adrenal glands. Otherwise the visualized upper abdomen appears negative. Procedure Note Vincent Martínez M.D. - 01/04/2025 EXAM: CT CHEST WITHOUT IV CONTRAST COMPARISON: 01/04/2025 and exams back to 01/10/2018 TECHNIQUE: Additional low-dose high-resolution images in expiration were performed. Limited prone high-resolution imaging was also obtained. FINDINGS: Since 12/22/2024, there has been a slight decrease in some of thegroundglass opacities in both lungs. Persistent groundglass opacitiesgreatest along the fissures, in the peripheral right middle lobe/lingulaand in the posterior costophrenic sulci. Other findings compatible withfibrotic interstitial lung disease are unchanged, with areas ofreticulation/linear densities greatest in the subpleural mid to lowerlungs associated with architectural distortion including tractionbronchiectasis. No definite honeycombing. When compared with earlier studies such as 05/25/2023, the extent of fibrosis/architectural distortion has increased and the progression ismore apparent when compared with 02/15/2018 but there was fibrosis andtraction bronchiectasis on that exam. No significant air trapping on expiratory imaging. Calcified pulmonary granulomas. A few noncalcified pulmonary nodules suchas a 4 mm subpleural nodule in the right lower lobe (series 3, image 393)are unchanged. No new or enlarging soft tissue density pulmonarynodules. No adenopathy in the chest. Calcified right hilar nodes. AV pacemaker. Regional vascular calcifications, including the coronary arteries , aortic annulus/valve and mitral annulus. Age-related changes in the skeleton, but no aggressive osseous lesions are identified. Splenic and hepatic granulomas. Somewhat atrophic adrenal glands.Otherwise the visualized upper abdomen appears negative. IMPRESSION: 1. Slight decrease in some of the groundglass opacities since 12/22/2024,but most of the findings compatible with fibrotic interstitial lungdisease are unchanged since that exam and progressed from earlierstudies. 2. Sequelae of previous granulomatous infection. Authorizing ProviderResult TypeResult StatusReid Yoseph Spivey M.D.[facility] CT PROCEDURESFinal Result * (ABNORMAL) CBC with Differential, Blood (12/10/2024 12:24 AM CDT)Component ValueRef RangeTest MethodAnalysis TimePerformed AtPathologist Signature Widqjehyza02.9(L)13.2 - 16.6 g/dL12/10/2024 1:17 AM JGAHYNScwpklfijl60.1(L) 38.3 - 48.6 %12/10/2024 1:17 AM CDTDTLErythrocytes3.97(L)4.35 - 5.65 x10(12)/L 12/10/2024 1:17 AM LNUHNCSGK44.978.2 - 97.9 fL12/10/2024 1:17 AM CDTDTLRBC Distrib Width14.511.8 - 14.5 %12/10/2024 1:17 AM CDTDTLPlatelet Towdw760870 - 317 x10(9)/L1 1:17 AM TFBPXKRvqxfznpux04.2(H)3.4 - 9.6 x10(9)/L 12/10/2024 1:17 AM HSEUBTFmcguripjwk04.11(H)1.56 - 6.45 x10(9)/L1 1:17 AM CDTDHPMLymphocytes0.50(L)0.95 - 3.07 x10(9)/L1 1:17 AM CDTDTL Monocytes0.570.26 - 0.81 x10(9)/L1 1:17 AM CDTDTLEosinophils<0.030.03 - 0.48 x10(9)/L1 1:17 AM CDTDTLBasophils<0.030.01 - 0.08 x10(9)/L 12/10/2024 1:17 AM CDTDTLSpecimen (Source)Anatomical Location / Laterality Collection Method / VolumeCollection TimeReceived TimeBlood (Blood, Venous) 12/10/2024 12:24 AM CDT1 12:52 AM CDT Narrative Authorizing ProviderResult TypeResult StatusEllenor Bertram GaoLAB BLOOD ADD-ON Final ResultPerforming OrganizationAddressCity/State/ZIP CodePhone Number [facility] [place] [address] [place] [address], [facility] DTL [facility] [address] [place], [place] [address] [place] [address] 200 [place] [address] * (ABNORMAL) Basic Metabolic Panel (12/10/2024 12:24 AM CDT)ComponentValueRef RangeTest MethodAnalysis TimePerformed AtPathologist SignaturePotassium, S4.0 3.6 - 5.2 mmol/L1 1:22 AM CDTDTLSodium, S134(L)135 - 145 mmol/L 12/10/2024 1:22 AM CDTDTLChloride, S97(L)98 - 107 mmol/L1 1:22 AM CDT DTLBicarbonate, S2622 - 29 mmol/L1 1:22 AM CDTDTLAnion Ivj828 - 15 12/10/2024 1:22 AM CDTDTLBUN (Blood Urea Nitrogen), S26(H)8 - 24 mg/dL 12/10/2024 1:22 AM CDTDTLCreatinine1.150.74 - 1.35 mg/dL12/10/2024 1:22 AM CDT DTLEstimated GFR (eGFR)61>=60 mL/min/BSA12/10/2024 1:22 AM CDTDTLComment: Estimated GFR calculated using the 2020 CKD_EPI creatinine equation. Calcium, Total, S9.08.8 - 10.2 mg/dL12/10/2024 1:22 AM CDTDTLGlucose, S155(H)70 - 140 mg/dL12/10/2024 1:22 AM CDTDTLSpecimen (Source)Anatomical Location / LateralityCollection Method / VolumeCollection TimeReceived TimeBlood (Blood, Venous)12/10/2024 12:24 AM CDT1 12:52 AM CDT Narrative Authorizing ProviderResult TypeResult StatusEllenor Bertram GaoLAB BLOOD ADD-ON Final ResultPerforming OrganizationAddressCity/State/ZIP CodePhone Number [facility] [place] [address] [place] [address], [facility] DTL [facility] [address] [place] [address] * Telomere Length Measurement by Flow Cytometry and FISH (flowFISH) - Sent Out Lab (12/10/2024 12:24 AM CDT)ComponentValueRef RangeTest MethodAnalysis Time Performed AtPathologist SignatureFlow FISH, Telomere LengthSEE COMMENT 01/01/2025 9:15 AM CSTJHMDComment: For final report, select Lab-Send Out Lab Results hyperlink. 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 [place] [address] [email or web address] [address] [place] [address] * (ABNORMAL) Basic Metabolic Panel (12/09/2024 12:39 AM CDT)ComponentValueRef RangeTest MethodAnalysis TimePerformed AtPathologist SignaturePotassium, S4.0 3.6 - 5.2 mmol/L1 1:45 AM CDTDTLSodium, K479497 - 145 mmol/L 12/09/2024 1:45 AM CDTDTLChloride, S97(L)98 - 107 mmol/L1 1:45 AM CDT DTLBicarbonate, S2422 - 29 mmol/L1 1:45 AM CDTDTLAnion Gap16(H)7 - 15 12/09/2024 1:45 AM CDTDTLBUN (Blood Urea Nitrogen), S29(H)8 - 24 mg/dL 12/09/2024 1:45 AM CDTDTLCreatinine1.280.74 - 1.35 mg/dL12/09/2024 1:45 AM CDT DTLEstimated GFR (eGFR)54(L)>=60 mL/min/BSA12/09/2024 1:45 AM CDTDTLComment: Estimated GFR calculated using the 2020 CKD_EPI creatinine equation. Calcium, Total, S8.98.8 - 10.2 mg/dL12/09/2024 1:45 AM CDTDTLGlucose, P20637 - 140 mg/dL12/09/2024 1:45 AM CDTDTLSpecimen (Source)Anatomical Location / LateralityCollection Method / VolumeCollection TimeReceived TimeBlood (Blood, Venous)12/09/2024 12:39 AM CDT1 12:39 AM CDT Narrative Authorizing ProviderResult TypeResult StatusEllemacho Burden M.D.LAB BLOOD ADD-ON Final ResultPerforming OrganizationAddressCity/State/ZIP CodePhone Number [facility] [place] [address] [place] [address], [facility] DTL [facility] [address] [place] [address] * (ABNORMAL) CBC with Differential, Blood (12/09/2024 12:38 AM CDT)Component ValueRef RangeTest MethodAnalysis TimePerformed AtPathologist Signature Ikazrwqbxq47.3(L)13.2 - 16.6 g/dL12/09/2024 1:15 AM SLGMNFExzqybnmdz63.6(L) 38.3 - 48.6 %12/09/2024 1:15 AM CDTDTLErythrocytes4.08(L)4.35 - 5.65 x10(12)/L 12/09/2024 1:15 AM ZXHLLSOXF58.878.2 - 97.9 fL12/09/2024 1:15 AM CDTDTLRBC Distrib Width14.511.8 - 14.5 %12/09/2024 1:15 AM CDTDTLPlatelet Rbebq181913 - 317 x10(9)/L1 1:15 AM AVUWWKRrvhelitgw13.7(H)3.4 - 9.6 x10(9)/L 12/09/2024 1:15 AM LPLQAKStvmhynlodz83.76(H)1.56 - 6.45 x10(9)/L1 1:15 AM CDTDHPMLymphocytes0.38(L)0.95 - 3.07 x10(9)/L1 1:15 AM CDTDTL Monocytes0.550.26 - 0.81 x10(9)/L1 1:15 AM CDTDTLEosinophils<0.030.03 - 0.48 x10(9)/L1 1:15 AM CDTDTLBasophils<0.030.01 - 0.08 x10(9)/L 12/09/2024 1:15 AM CDTDTLSpecimen (Source)Anatomical Location / Laterality Collection Method / VolumeCollection TimeReceived TimeBlood (Blood, Venous) 12/09/2024 12:38 AM CDT1 12:38 AM CDT Narrative Authorizing ProviderResult TypeResult StatusEllemacho Burden M.D.LAB BLOOD ADD-ON Final ResultPerforming OrganizationAddressCity/State/ZIP CodePhone Number [facility] [place] [address] [place] [address], [facility] 200 [place] [address] * (ABNORMAL) Hemoglobin A1c (12/09/2024 12:33 AM CDT)ComponentValueRef RangeTest MethodAnalysis TimePerformed AtPathologist SignatureHemoglobin A1c, B6.1(H) 4.0 - 5.6 %12/09/2024 7:47 AM CDTDTLComment: Hemoglobin A1c values of 5.7-6.4 percent indicate an increased risk for developing diabetes mellitus. In diabetic patients, HbA1c goals should be discussed with healthcare provider. Specimen (Source)Anatomical Location / LateralityCollection Method / Volume Collection TimeReceived TimeBlood (Blood, Venous)12/09/2024 12:33 AM CDT 12/09/2024 7:23 AM CDT Narrative Authorizing ProviderResult TypeResult StatusNicole Burden M.D.LAB BLOOD ADD-ON Final ResultPerforming OrganizationAddressCity/State/ZIP CodePhone Number [facility] [place] [address] [place] [address], [place] [address] * Magnesium (12/08/2024 6:07 PM CDT)ComponentValueRef RangeTest MethodAnalysis TimePerformed AtPathologist SignatureMagnesium, S2.01.7 - 2.3 mg/dL12/08/2024 7:44 PM CDTDTLSpecimen (Source)Anatomical Location / LateralityCollection Method / VolumeCollection TimeReceived TimeBlood (Blood, Venous)12/08/2024 6:07 PM CDT1 6:53 PM CDT Narrative Authorizing ProviderResult TypeResult StatusBehenny Cerna M.D.LAB BLOOD ADD-ONFinal ResultPerforming OrganizationAddressCity/State/ZIP CodePhone Number [facility] [place] [address] [place] [address], [facility] 200 [place] [address] * (ABNORMAL) Basic Metabolic Panel (12/08/2024 6:07 PM CDT)ComponentValueRef RangeTest MethodAnalysis TimePerformed AtPathologist SignaturePotassium, S4.6 3.6 - 5.2 mmol/L1 7:44 PM CDTDTLSodium, V314028 - 145 mmol/L 12/08/2024 7:44 PM CDTDTLChloride, S96(L)98 - 107 mmol/L1 7:44 PM CDT DTLBicarbonate, S2322 - 29 mmol/L1 7:44 PM CDTDTLAnion Gap16(H)7 - 15 12/08/2024 7:44 PM CDTDTLBUN (Blood Urea Nitrogen), S27(H)8 - 24 mg/dL 12/08/2024 7:44 PM CDTDTLCreatinine1.250.74 - 1.35 mg/dL12/08/2024 7:44 PM CDT DTLEstimated GFR (eGFR)55(L)>=60 mL/min/BSA12/08/2024 7:44 PM CDTDTLComment: Estimated GFR calculated using the 2020 CKD_EPI creatinine equation. Calcium, Total, S8.98.8 - 10.2 mg/dL12/08/2024 7:44 PM CDTDTLGlucose, S205(H)70 - 140 mg/dL12/08/2024 7:44 PM CDTDTLSpecimen (Source)Anatomical Location / LateralityCollection Method / VolumeCollection TimeReceived TimeBlood (Blood, Venous)12/08/2024 6:07 PM CDT1 6:53 PM CDT Narrative Authorizing ProviderResult TypeResult StatusMelo Cerna M.D.LAB BLOOD ADD-ONFinal ResultPerforming OrganizationAddressCity/State/ZIP CodePhone Number [facility] [place] [address] [place] [address], [facility] [place] [address] * Antibody to Extractable Nuclear Antigen Evaluation (12/08/2024 1:34 AM CDT) ComponentValueRef RangeTest MethodAnalysis TimePerformed AtPathologist SignatureSS-A/Ro Ab, IgG, S<0.2<1.0 (Negative) 12/08/2024 9:29 AM CDTSDSCSS- B/La Ab, IgG, S<0.2<1.0 (Negative) 12/08/2024 9:30 AM CDTSDSCSm Ab, IgG, S <0.2<1.0 (Negative) 12/08/2024 9:29 AM CDTSDSCRNP Ab, IgG, S<0.2<1.0 (Negative) U1 9:30 AM CDTSDSCScl 70 Ab, IgG, S<0.2<1.0 (Negative) U 12/08/2024 9:30 AM CDTSDSCJo 1 Ab, IgG, S<0.2<1.0 (Negative) U1 9:30 AM CDTSDSCSpecimen (Source)Anatomical Location / LateralityCollection Method / VolumeCollection TimeReceived TimeBlood (Blood, Venous)12/08/2024 1:34 AM CDT 12/08/2024 7:26 AM CDT Narrative Authorizing ProviderResult TypeResult StatusNicole Burden M.D.LAB BLOOD ADD-ON Final ResultPerforming OrganizationAddressCity/State/ZIP CodePhone Number [facility] [address] [place] [address] [facility] [address] [place] [address] * Connective Tissue Diseases [place] (12/08/2024 1:34 AM CDT)ComponentValueRef RangeTest MethodAnalysis TimePerformed AtPathologist SignatureAntinuclear Ab, S0.3<=1.0 (Negative) U1 1:41 PM CDTSDSCComment: ----ADDITIONAL INFORMATION---- Method: Enzyme-linked immunoassay using HEp-2 nuclear extract supplemented with purified antigens. Cyclic Citrullinated Peptide Ab, S<15.6<20.0 (Negative) 1:47 PM CDT SDSCComment: Interpretation: Antibodies to CCP not detected. If clinical symptoms are strongly indicative for rheumatoid arthritis, suggest testing for Rheumatoid Factor, S (RHUT) and, if positive, Rheumatoid Factor Panel, S (RFPN), which includes differentiation of rheumatoid factor IgM and IgA isotypes. InterpretationSEE MOPPGWD5012/08/2024 1:47 PM CDTSDSCComment: Tests for antibodies to dsDNA and ALTON antigens are not performed automatically unless the KRIS result is > or = 3.0 U. ??Studies performed at [facility] indicate that positive KRIS results <3.0 U are rarely accompanied by positive second order tests. Specimen (Source)Anatomical Location / LateralityCollection Method / Volume Collection TimeReceived TimeBlood (Blood, Venous)12/08/2024 1:34 AM CDT 12/08/2024 7:26 AM CDT Narrative Authorizing ProviderResult TypeResult StatusEllemacho Burden M.D.LAB BLOOD ADD-ON Final ResultPerforming OrganizationAddressCity/State/ZIP CodePhone Number [facility] [address] [place] [address] [facility] [place] [address] [place] [address] * ANCA (Antineutrophil Cytoplasmic Antibodies) Vasculitis Panel (12/08/2024 1:34 AM CDT)ComponentValueRef RangeTest MethodAnalysis TimePerformed AtPathologist SignatureMyeloperoxidase Ab, S<0.2<0.4 (Negative) 12/08/2024 9:30 AM CDTSDSC Proteinase 3 Ab (PR3), S<0.2<0.4 (Negative) U1 9:30 AM CDTSDSC Specimen (Source)Anatomical Location / LateralityCollection Method / Volume Collection TimeReceived TimeBlood (Blood, Venous)12/08/2024 1:34 AM CDT 12/08/2024 7:26 AM CDT Narrative Authorizing ProviderResult TypeResult StatusEllemacho Burden M.D.LAB BLOOD ADD-ON Final ResultPerforming OrganizationAddressCity/State/ZIP CodePhone Number [facility] [address] [place] [address] [facility] [place] [address] [place] [address] * (ABNORMAL) Basic Metabolic Panel (12/08/2024 1:33 AM CDT)ComponentValueRef RangeTest MethodAnalysis TimePerformed AtPathologist SignaturePotassium, S4.2 3.6 - 5.2 mmol/L1 2:44 AM CDTDTLSodium, M205051 - 145 mmol/L 12/08/2024 2:44 AM CDTDTLChloride, S9998 - 107 mmol/L1 2:44 AM CDTDTL Bicarbonate, S2622 - 29 mmol/L1 2:44 AM CDTDTLAnion Lbu616 - 15 12/08/2024 2:44 AM CDTDTLBUN (Blood Urea Nitrogen), S27(H)8 - 24 mg/dL 12/08/2024 2:44 AM CDTDTLCreatinine1.200.74 - 1.35 mg/dL12/08/2024 2:44 AM CDT DTLEstimated GFR (eGFR)58(L)>=60 mL/min/BSA12/08/2024 2:44 AM CDTDTLComment: Estimated GFR calculated using the 2020 CKD_EPI creatinine equation. Calcium, Total, S8.7(L)8.8 - 10.2 mg/dL12/08/2024 2:44 AM CDTDTLGlucose, I31397 - 140 mg/dL12/08/2024 2:44 AM CDTDTLSpecimen (Source)Anatomical Location / LateralityCollection Method / VolumeCollection TimeReceived TimeBlood (Blood, Venous)12/08/2024 1:33 AM CDT1 1:55 AM CDT Narrative Authorizing ProviderResult TypeResult StatusEllenomessi Burden M.D.LAB BLOOD ADD-ON Final ResultPerforming OrganizationAddressCity/State/ZIP CodePhone Number [facility] [place] [address] [place] [address], [facility] DTL [facility] [address] [place] [address] * (ABNORMAL) CBC with Differential, Blood (12/08/2024 1:33 AM CDT)ComponentValue Ref RangeTest MethodAnalysis TimePerformed AtPathologist SignatureHemoglobin 11.1(L)13.2 - 16.6 g/dL12/08/2024 2:36 AM LOVFVTFprqmbxlxh95.6(L)38.3 - 48.6 % 12/08/2024 2:36 AM CDTDTLErythrocytes4.05(L)4.35 - 5.65 x10(12)/L1 2:36 AM FBCOHHEPC43.478.2 - 97.9 fL12/08/2024 2:36 AM CDTDTLRBC Distrib Width 14.6(H)11.8 - 14.5 %12/08/2024 2:36 AM CDTDTLPlatelet Ncqki418114 - 317 x10(9)/L1 2:36 AM CACAGVFsnsjsoynm59.9(H)3.4 - 9.6 x10(9)/L1 2:36 AM GMDJMITjgtjjpkrwc37.42(H)1.56 - 6.45 x10(9)/L1 2:36 AM CDT DHPMLymphocytes0.82(L)0.95 - 3.07 x10(9)/L1 2:36 AM CDTDTLMonocytes 0.520.26 - 0.81 x10(9)/L1 2:36 AM CDTDTLEosinophils0.090.03 - 0.48 x10(9)/L1 2:36 AM CDTDTLBasophils<0.030.01 - 0.08 x10(9)/L1 2:36 AM CDTDTLSpecimen (Source)Anatomical Location / LateralityCollection Method / VolumeCollection TimeReceived TimeBlood (Blood, Venous)12/08/2024 1:33 AM CDT1 1:54 AM CDT Narrative Authorizing ProviderResult TypeResult StatusNicole Burden M.D.LAB BLOOD ADD-ON Final ResultPerforming OrganizationAddressCity/State/ZIP CodePhone Number [facility] [place] [address] [place] [address], [place] [address] * (ABNORMAL) Dipstick, Urine (12/07/2024 7:13 PM CDT)ComponentValueRef RangeTest MethodAnalysis TimePerformed AtPathologist SignatureHemoglobin, QLTrace(A) Bddghapt81/24/2025 8:31 PM CDTDTLLeukocyte Esterase, UNegativeNegative 12/07/2024 8:31 PM CDTDTLNitrite, EZsqrokbcFcfsxldw92/24/2025 8:31 PM CDTDTL Ketones, UNegativeNegative mg/dL12/07/2024 8:31 PM CDTDTLGlucose, UNegative Negative mg/dL12/07/2024 8:31 PM CDTDTLSpecimen (Source)Anatomical Location / LateralityCollection Method / VolumeCollection TimeReceived TimeUrine 12/07/2024 7:13 PM CDT1 7:34 PM CDT Narrative Authorizing ProviderResult TypeResult StatusMelo Cerna M.D.LAB URINE ORDERABLESFinal ResultPerforming OrganizationAddressCity/State/ZIP CodePhone Number [facility] [place] [address] [place] [address], [address] [place] [address] * Osmolality, Urine (12/07/2024 7:13 PM CDT)ComponentValueRef RangeTest Method Analysis TimePerformed AtPathologist SignatureOsmolality, [id number] - 1150 mOsm/kg12/07/2024 8:52 PM CDTDTLSpecimen (Source)Anatomical Location / LateralityCollection Method / VolumeCollection TimeReceived TimeUrine 12/07/2024 7:13 PM CDT1 7:34 PM CDT Narrative Authorizing ProviderResult TypeResult StatusMelo Cerna M.D.LAB URINE ORDERABLESFinal ResultPerforming OrganizationAddressCity/State/ZIP CodePhone Number [facility] [place] [address] [place] [address], [facility] [address] [place] [address] * (ABNORMAL) Microscopic Automated (12/07/2024 7:13 PM CDT)ComponentValueRef RangeTest MethodAnalysis TimePerformed AtPathologist SignatureMicroscopy Ievnhvpb27/24/2025 8:31 PM ZSBALCESU93-32(A)<3 /hpf12/07/2024 8:31 PM CDTDTL Dysmorphic RBC<25<25 %12/07/2024 8:31 PM CDTDTLWBC1-3/hpf12/07/2024 8:31 PM CDTDTLComment: ----REFERENCE VALUE---- <4 (Males) <11 (Females) Casts, Hyaline1-3/lp12/07/2024 8:31 PM CDTDTLSpecimen (Source)Anatomical Location / LateralityCollection Method / VolumeCollection TimeReceived TimeUrine 12/07/2024 7:13 PM CDT1 7:34 PM CDT Narrative Authorizing ProviderResult TypeResult StatusMelo Cerna M.D.LAB URINE ORDERABLESFinal ResultPerforming OrganizationAddressCity/State/ZIP CodePhone Number [facility] [place] [address] [place] [address], [facility] [address] [place] [address] * pH, Urine (12/07/2024 7:13 PM CDT)ComponentValueRef RangeTest MethodAnalysis TimePerformed AtPathologist SignaturepH, U5.54.5 - 8.010 8:52 PM CDT DTLSpecimen (Source)Anatomical Location / LateralityCollection Method / Volume Collection TimeReceived RfqoLzpct47/24/2025 7:13 PM CDT1 7:34 PM CDT Narrative Authorizing ProviderResult TypeResult StatusMelo Cerna M.D.LAB URINE ORDERABLESFinal ResultPerforming OrganizationAddressCity/State/ZIP CodePhone Number [facility] [place] [address] [place] [address], [facility] [address] [place] [address] * (ABNORMAL) Urinalysis, with Microscopic: Urine, Straight Catheter (12/07/2024 7:13 PM CDT)ComponentValueRef RangeTest MethodAnalysis TimePerformed At Pathologist SignatureSourceUrine, Urine, Straight Imrfhspd61/24/2025 7:34 PM CDTDTLColor, FKvmdvc9112/07/2024 7:34 PM CDTDTLClarity, KXbsvq1412/07/2024 7:34 PM CDTDTLProtein, U15<26 mg/dL12/07/2024 8:04 PM CDTDTLProtein/Osmolality0.29 <0.42 ratio12/07/2024 8:52 PM CDTDTLPredicted 24 HR Protein, U294(H)<229 mg/24 h1 8:52 PM CDTDTLPredicted Ljgfz07-684wl/24 h1 8:52 PM CDT DTLSpecimen (Source)Anatomical Location / LateralityCollection Method / Volume Collection TimeReceived TimeUrine (Urine, Straight Catheter)12/07/2024 7:13 PM CDT1 7:33 PM CDT Narrative Authorizing ProviderResult TypeResult StatusMelo Cerna M.D.LAB URINE ORDERABLESFinal ResultPerforming OrganizationAddressCity/State/ZIP CodePhone Number [facility] [place] [address] [place] [address], [place] DTL [facility] [address] [place] [address] * (1, 3) Jgjs-U-Aqakeu (Fungitell), Serum (12/07/2024 3:51 PM CDT)ComponentValue Ref RangeTest MethodAnalysis TimePerformed AtPathologist Signature(1, 3) Rhrl-B-Ugqesd, Nnwymflxdtjr62<60 pg/mL pg/mL12/10/2024 7:19 AM CDTSDSC(1, 3) Bbws-O-Rcutxn, GhjtqnwutpdDpjtjjdtJrqxsywd86/27/2025 7:19 AM CDTSDSCComment: No (1, 3) Csis-Y-Mfnjkm detected. ?? This assay does not detect certain fungi, including Cryptococcus species, which produce very low levels of (1, 3) Yiqm-Y-Iaanis (BDG) and the Mucorales (e.g., Lichthemia, Mucor and Rhizopus), which are not known to produce BDG. Additionally, the yeast phase of Blastomyces dermatitidis produces little BDG and may not be detected by this assay. ----ADDITIONAL INFORMATION---- This assay was performed using the FDA-cleared Fungitell Assay ([facility], [place], [place], [place]), a kinetic EDYTA based on modification of the Limulus Amebocyte Lysate pathway. Specimen (Source)Anatomical Location / LateralityCollection Method / Volume Collection TimeReceived TimeBlood (Blood, Venous)12/07/2024 3:51 PM CDT 12/07/2024 8:25 PM CDT Narrative Authorizing ProviderResult TypeResult StatusBenbill Cerna M.D.LAB MICROBIOLOGY - BLOOD ORDERABLESFinal ResultPerforming OrganizationAddress City/State/ZIP CodePhone Number [facility] [address] [place] [address] [facility] [address] [place] [address] [place] [address] * FL Swallow Function with Video and Speech or OT (12/07/2024 11:23 AM CDT) Anatomical RegionLateralityModalityGastro Intestinal, Abdominal RST LOS, Abdominal ARZ LOS, Abdominal FLA LOSN/ADigital RadiographySpecimen (Source) Anatomical Location / LateralityCollection Method / VolumeCollection Time Received Time Impressions 12/07/2024 11:56 AM CDT Aspiration with thin liquid which improved with chin tuck maneuver and small sips. Please see speech pathology note for further details and recommendations. Narrative 12/07/2024 11:56 AM CDT EXAM: FL SWALLOW FUNCTION WITH VIDEO AND SPEECH OR OT FOR RST COMPARISON: Video swallow study 02/16/2019. FINDINGS: Study was performed with speech pathology. Thin liquid, mildly thick, puree solid, regular solid consistencies were given. Aspiration with thin liquid which improved with chin tuck maneuver and smallsips. No evidence of aspiration or laryngeal penetration with any other tested consistency. ??Mild vallecular or piriform sinus residue. Procedure Note Robert Ponce M.D. - 12/07/2024 EXAM: FL SWALLOW FUNCTION WITH VIDEO AND SPEECH OR OT FOR RST COMPARISON: Video swallow study 02/16/2019. FINDINGS: Study was performed with speech pathology. Thin liquid, mildly thick,puree solid, regular solid consistencies were given. Aspiration with thinliquid which improved with chin tuck maneuver and small sips. No evidenceof aspiration or laryngeal penetration with any other tested consistency.Mild vallecular or piriform sinus residue. IMPRESSION: Aspiration with thin liquid which improved with chin tuck maneuver andsmall sips. Please see speech pathology note for further details andrecommendations. Authorizing ProviderResult TypeResult StatusAlyssa Joseph Bui M.D., Ph.D.IMG FLUOROSCOPY PROCEDURESFinal Result * ECG 12 Lead (12/07/2024 7:26 AM CDT)ComponentValueRef RangeTest MethodAnalysis TimePerformed AtPathologist SignatureVentricular Rate ECG/Beo05ETVYFBPGM Oxtovcfk254rbNQEIQIRS Orkhqhlr547xbYVTAAO Ipmqaqxj562lmEKKYHNO Wnbuozal415nv MUSEP Pcyd05oagafqcINOAU Butler-75degreesMUSET Wave Fyep58vcooxtkPSAWGxrqxmjk (Source)Anatomical Location / LateralityCollection Method / VolumeCollection TimeReceived Time12/07/2024 7:26 AM CDT1 7:29 AM CDT Impressions MUSE - 12/07/2024 7:30 AM CDT Atrial-sensed ventricular-paced rhythm Sinus rhythm Prolonged QT When compared with ECG of 06-Dec-2024 12:46, Significant changes have occurred Reviewed by HARRIET Tate Narrative Procedure Note Galen Coker M.D. - 12/07/2024 IMPRESSION: Atrial-sensed ventricular-paced rhythm Sinus rhythm Prolonged QT When compared with ECG of 06-Dec-2024 12:46, Significant changes have occurred Reviewed by HARRIET Tate Authorizing ProviderResult TypeResult StatusBehenny Cerna M.D.ECG ORDERABLES Final ResultPerforming OrganizationAddressCity/State/ZIP CodePhone Number MUSE NA * (ABNORMAL) Basic Metabolic Panel (12/07/2024 6:03 AM CDT)ComponentValueRef RangeTest MethodAnalysis TimePerformed AtPathologist SignaturePotassium, S3.9 3.6 - 5.2 mmol/L1 7:35 AM CDTDTLSodium, L362992 - 145 mmol/L 12/07/2024 7:35 AM CDTDTLChloride, S9898 - 107 mmol/L1 7:35 AM CDTDTL Bicarbonate, S30(H)22 - 29 mmol/L1 7:35 AM CDTDTLAnion Dwe059 - 15 12/07/2024 7:35 AM CDTDTLBUN (Blood Urea Nitrogen), S248 - 24 mg/dL12/07/2024 7:35 AM CDTDTLCreatinine1.230.74 - 1.35 mg/dL12/07/2024 7:35 AM CDTDTL Estimated GFR (eGFR)56(L)>=60 mL/min/BSA12/07/2024 7:35 AM CDTDTLComment: Estimated GFR calculated using the 2020 CKD_EPI creatinine equation. Calcium, Total, S8.88.8 - 10.2 mg/dL12/07/2024 7:35 AM CDTDTLGlucose, S8170 - 140 mg/dL12/07/2024 7:35 AM CDTDTLSpecimen (Source)Anatomical Location / LateralityCollection Method / VolumeCollection TimeReceived TimeBlood (Blood, Venous)12/07/2024 6:03 AM CDT1 6:51 AM CDT Narrative Authorizing ProviderResult TypeResult StatusAlyssa Joseph Bui M.D., Ph.D.LAB BLOOD ADD-ONFinal ResultPerforming OrganizationAddressCity/State/ZIP CodePhone Number [facility] [place] [address] [place] [address], [facility] DTL [facility] [address] [place] [address] * (ABNORMAL) CBC with Differential, Blood (12/07/2024 6:03 AM CDT)ComponentValue Ref RangeTest MethodAnalysis TimePerformed AtPathologist SignatureHemoglobin 12.9(L)13.2 - 16.6 g/dL12/07/2024 6:57 AM IUGOCKQequeqzhkv74.038.3 - 48.6 % 12/07/2024 6:57 AM CDTDTLErythrocytes4.634.35 - 5.65 x10(12)/L1 6:57 AM XMIAIUDPY93.478.2 - 97.9 fL12/07/2024 6:57 AM CDTDTLRBC Distrib Width14.9 (H)11.8 - 14.5 %12/07/2024 6:57 AM CDTDTLPlatelet Ptonp858524 - 317 x10(9)/L 12/07/2024 6:57 AM AQOGOVHhwwkysysy13.9(H)3.4 - 9.6 x10(9)/L1 6:57 AM MHDWYBBixduvzhikk96.65(H)1.56 - 6.45 x10(9)/L1 6:57 AM CDTDHPM Lymphocytes0.73(L)0.95 - 3.07 x10(9)/L1 6:57 AM CDTDTLMonocytes0.72 0.26 - 0.81 x10(9)/L1 6:57 AM CDTDTLEosinophils0.78(H)0.03 - 0.48 x10(9)/L1 6:57 AM CDTDTLBasophils0.050.01 - 0.08 x10(9)/L1 6:57 AM CDTDTLSpecimen (Source)Anatomical Location / LateralityCollection Method / VolumeCollection TimeReceived TimeBlood (Blood, Venous)12/07/2024 6:03 AM CDT1 6:51 AM CDT Narrative Authorizing ProviderResult TypeResult StatusBrianna Bui M.D., Ph.D.LAB BLOOD ADD-ONFinal ResultPerforming OrganizationAddressCity/State/ZIP CodePhone Number [address] [address], [id number] [place] [address] * (ABNORMAL) CRP (C-Reactive Protein) (12/07/2024 6:00 AM CDT)ComponentValueRef RangeTest MethodAnalysis TimePerformed AtPathologist SignatureC-Reactive Protein (CRP), S94.6(H)<5.0 mg/L1 6:46 PM CDTDTLSpecimen (Source) Anatomical Location / LateralityCollection Method / VolumeCollection Time Received TimeBlood (Blood, Venous)12/07/2024 6:00 AM CDT1 6:26 PM CDT Narrative Authorizing ProviderResult TypeResult StatusMelo Cerna M.D.LAB BLOOD ADD-ONFinal ResultPerforming OrganizationAddressCity/State/ZIP CodePhone Number [address] [address], [place] [address] * (ABNORMAL) Hepatic Function Panel (12/07/2024 6:00 AM CDT)ComponentValueRef RangeTest MethodAnalysis TimePerformed AtPathologist SignatureBilirubin, Total, S0.70.0 - 1.2 mg/dL12/07/2024 10:01 AM CDTDTLBilirubin, Direct, S0.20.0 - 0.3 mg/dL12/07/2024 10:01 AM CDTDTLAspartate Aminotransferase (AST), S348 - 48 U/L1 10:01 AM CDTDTLAlanine Aminotransferase (ALT), S457 - 55 U/L 12/07/2024 10:01 AM CDTDTLAlkaline Phosphatase, S8840 - 129 U/L1 10:01 AM CDTDTLAlbumin, S3.4(L)3.5 - 5.0 g/dL12/07/2024 10:01 AM CDTDTL Protein, Total, S5.3(L)6.3 - 7.9 g/dL12/07/2024 10:01 AM CDTDTLSpecimen (Source)Anatomical Location / LateralityCollection Method / VolumeCollection TimeReceived TimeBlood (Blood, Venous)12/07/2024 6:00 AM CDT1 9:11 AM CDT Narrative Authorizing ProviderResult TypeResult StatusEllemacho Burden M.D.LAB BLOOD ADD-ON Final ResultPerforming OrganizationAddressCity/State/[place] [address], [facility] [address] [address] * Lactate (12/07/2024 12:10 AM CDT)ComponentValueRef RangeTest MethodAnalysis TimePerformed AtPathologist SignatureLactate, P1.00.5 - 2.2 mmol/L1 1:12 AM CDTDTLSpecimen (Source)Anatomical Location / LateralityCollection Method / VolumeCollection TimeReceived TimeBlood (Blood, Venous)12/07/2024 12:10 AM CDT1 12:38 AM CDT Narrative Authorizing ProviderResult TypeResult StatusBrianna Bui M.D., Ph.D.LAB BLOOD NON ADD-ONFinal ResultPerforming OrganizationAddressCity/State/ZIP Code Phone Number [facility] [place] [address] [place] [address], [facility] DTL [facility] [address] [place] [address] * Lactate (12/06/2024 7:52 PM CDT)ComponentValueRef RangeTest MethodAnalysis TimePerformed AtPathologist SignatureLactate, P1.00.5 - 2.2 mmol/L1 8:09 PM CDTSTMASpecimen (Source)Anatomical Location / LateralityCollection Method / VolumeCollection TimeReceived FcjpXbwca02/23/2025 7:52 PM CDT 12/06/2024 7:57 PM CDT Narrative Authorizing ProviderResult TypeResult StatusSharona Osborne M.D.LAB BLOOD NON ADD-ONFinal ResultPerforming OrganizationAddressCity/State/ZIP CodePhone Number [facility] [place] [address] [place] [address], [facility] [address] [place] [address] * (ABNORMAL) Troponin T, 6h, 5th Gen (12/06/2024 7:52 PM CDT)ComponentValueRef RangeTest MethodAnalysis TimePerformed AtPathologist SignatureTroponin T, 6 hr, 5th gen58(H)<=15 ng/L1 8:16 PM SHKKINE5F Delta-15(A)ng/L 12/06/2024 8:16 PM WMJBMYE7I Delta InterpChanging(A)12/06/2024 8:16 PM CDTSTMA Comment:Evaluate for acute myocardial injurySpecimen (Source)Anatomical Location / LateralityCollection Method / VolumeCollection TimeReceived Time Blood12/06/2024 7:52 PM CDT1 7:57 PM CDT Narrative Authorizing ProviderResult TypeResult StatusNydia Mueller M.D.LAB BLOOD TROPONINFinal ResultPerforming OrganizationAddressCity/State/ZIP CodePhone Number [facility] [place] [address] [place] [address], [facility] [address] [place] [address] * CT Chest without IV Contrast (12/06/2024 4:43 PM CDT)Anatomical Region LateralityModalityChest, Thoracic RST LOS, Thoracic ARZ LOS, Thoracic FLA LOS N/AComputed Tomography, Computed TomographySpecimen (Source)Anatomical Location / LateralityCollection Method / VolumeCollection TimeReceived Time Impressions 12/06/2024 5:53 PM CDT 1. Decreased patchy groundglass opacities in the upper lobes with persistent micronodularity and groundglass opacities in the lung bases. Findings are suggestive of improving infectious/inflammatory process, though waxing/waning of patient's interstitial lung disease is also a consideration. 2. 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 Narrative 12/06/2024 5:53 PM CDT EXAM: CT CHEST WITHOUT IV CONTRAST COMPARISON: CT chest without IV contrast 11/18/2024. FINDINGS: Since 11/18/2024, decreased patchy groundglass opacities in the bilateral upper lobes suggests an improving infectious/inflammatory process. Similar micronodularity and ill-defined groundglass opacities throughout both bases. Previously seen consolidation or atelectasis along the right major fissure has resolved. Remainder not significantly changed. Persistent peribronchial thickening. 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 Stable 4 mm pulmonary nodule peripheral right lower lobe (series 3, image 421). Tiny calcified pleural plaques, for example along the posterior left lower lobe (series 4, image 223). No pleural effusion or pneumothorax. Central airways are clear. Stable mediastinal lymphadenopathy including a 10 mm right paratracheal lymph node. Calcified righthilar lymph nodes. Normal caliber thoracic aorta and main pulmonary artery. Pacemaker. Moderate coronary calcification. Mitral annulus calcification. No acute osseous abnormality. Small esophageal hiatal hernia. Subcentimeter low- attenuation densityin the left hepatic dome, stable, could be cyst/hemangioma. Calcified hepatic and splenic granulomas. No acute findings in the visualized upper abdomen. Low-attenuation blood pool, likely due to patient's anemia. Procedure Note Adrian Arrieta M.D. - 12/06/2024 EXAM: CT CHEST WITHOUT IV CONTRAST COMPARISON: CT chest without IV contrast 11/18/2024. FINDINGS: Since 11/18/2024, decreased patchy groundglass opacities in the bilateralupper lobes suggests an improving infectious/inflammatory process. Similar micronodularity and ill-defined groundglass opacities throughout bothbases. Previously seen consolidation or atelectasis along the right majorfissure has resolved. Remainder not significantly changed. Persistentperibronchial thickening. 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 Stable 4 mm pulmonary nodule peripheral right lower lobe(series 3, image 421). Tiny calcified pleural plaques, for example alongthe posterior left lower lobe (series 4, image 223). No pleural effusionor pneumothorax. Central airways are clear. Stable mediastinal lymphadenopathy including a 10 mm right paratracheallymph node. Calcified right hilar lymph nodes. Normal caliber thoracic aorta and main pulmonary artery. Pacemaker.Moderate coronary calcification. Mitral annulus calcification. No acute osseous abnormality. Small esophageal hiatal hernia.Subcentimeter low- attenuation density in the left hepatic dome, stable,could be cyst/hemangioma. Calcified hepatic and splenic granulomas. Noacute findings in the visualized upper abdomen. Low-attenuation bloodpool, likely due to patient's anemia. IMPRESSION: 1. Decreased patchy groundglass opacities in the upper lobes withpersistent micronodularity and groundglass opacities in the lung bases.Findings are suggestive of improving infectious/inflammatory process,though waxing/waning of patient's interstitial lung disease is also aconsideration. 2. 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 Authorizing ProviderResult TypeResult StatusBredanial Leger M.D., Ph.D.[facility] CT PROCEDURESFinal Result * (ABNORMAL) Lactate for Sepsis with Reflex, POCT (12/06/2024 4:33 PM CDT) ComponentValueRef RangeTest MethodAnalysis TimePerformed AtPathologist SignatureLactate, POCT2.47(H)0.50 - 2.20 mmol/L1 4:42 PM CDTPCLX Specimen (Source)Anatomical Location / LateralityCollection Method / Volume Collection TimeReceived TimeBlood (Blood, Venous)12/06/2024 4:33 PM CDT 12/06/2024 4:33 PM CDT Narrative Authorizing ProviderResult TypeResult StatusSharona Osborne M.D.LAB POCT ORDERABLES - DEVICEFinal ResultPerforming OrganizationAddressCity/State/ZIP Code Phone Number [facility] [address] [place] [address], [place] [facility] [address] [place] [address] * (ABNORMAL) Venous Blood Gas and Electrolytes CG8+, POCT (12/06/2024 4:32 PM CDT)ComponentValueRef RangeTest MethodAnalysis TimePerformed AtPathologist SignatureSample Site, QCGPNpttpcte80/23/2025 4:42 PM CDTPCLXComment: ----ADDITIONAL INFORMATION---- Performed at the Point of Care pH, Venous, POCT, B7.417.32 - 7.4310 4:42 PM CDTPCSMComment: ----ADDITIONAL INFORMATION---- Performed at the Point of Care pCO2, Venous, POCT, B52(H)41 - 51 mm Hg12/06/2024 4:42 PM CDTPCSMComment: ----ADDITIONAL INFORMATION---- Performed at the Point of Care pO2, Venous, POCT, B28Not Applicable mm Hg12/06/2024 4:42 PM CDTPCSMComment: ----ADDITIONAL INFORMATION---- Performed at the Point of Care Base Excess, Venous, POCT, B8Not Applicable mmol/L1 4:42 PM CDTPCSM Comment: ----ADDITIONAL INFORMATION---- Performed at the Point of Care HCO3, Venous, POCT, B33Not Applicable mmol/L1 4:42 PM CDTPCSMComment: ----ADDITIONAL INFORMATION---- Performed at the Point of Care Sodium, POCT, B134(L)135 - 145 mmol/L1 4:42 PM CDTPCLXComment: ----ADDITIONAL INFORMATION---- Performed at the Point of Care Potassium, POCT, B4.63.6 - 5.2 mmol/L1 4:42 PM CDTPCLXComment: ----ADDITIONAL INFORMATION---- Performed at the Point of Care Calcium, Ionized, POCT, B4.60(L)4.65 - 5.30 mg/dL12/06/2024 4:42 PM CDTPCLX Comment: ----ADDITIONAL INFORMATION---- Performed at the Point of Care Glucose, POCT, C20870 - 140 mg/dL12/06/2024 4:42 PM CDTPCLXComment: ----ADDITIONAL INFORMATION---- Performed at the Point of Care Hematocrit, POCT, B41.038.3 - 48.6 %12/06/2024 4:42 PM CDTPCLXComment: ----ADDITIONAL INFORMATION---- Performed at the Point of Care Specimen (Source)Anatomical Location / LateralityCollection Method / Volume Collection TimeReceived TimeBlood (Blood, Venous)12/06/2024 4:32 PM CDT 12/06/2024 4:28 PM CDT Narrative Authorizing ProviderResult TypeResult Bj Osborne M.D.LAB POCT ORDERABLES - DEVICEFinal ResultPerforming OrganizationAddressCity/State/ZIP Code Phone Number [facility] [address] [place] [address], [place] [facility] [address] [place] [address] P[facility]M [facility] POC [address] [place] [address] * Bacteria / Theresa Culture, Blood # 2 (12/06/2024 4:32 PM CDT)ComponentValue Ref RangeTest MethodAnalysis TimePerformed AtPathologist Signature Bacteria/Theresa Culture, BloodNo growth after 5 days of incubation.12/11/2024 5:02 PM CDTDTLSpecimen (Source)Anatomical Location / LateralityCollection Method / VolumeCollection TimeReceived TimeBlood (Blood, Peripheral Draw) 12/06/2024 4:32 PM CDT1 4:46 PM CDTComment:Specimen Source Site: Blood Narrative Authorizing ProviderResult TypeResult Bj Osborne M.D.LAB MICROBIOLOGY - GENERAL ORDERABLESFinal ResultPerforming OrganizationAddressCity/State/ZIP CodePhone Number [facility] [place] [address] [place] [address] * Bacteria / Theresa Culture, Blood #1 (12/06/2024 4:30 PM CDT)ComponentValueRef RangeTest MethodAnalysis TimePerformed AtPathologist Signature Bacteria/Theresa Culture, BloodNo growth after 5 days of incubation.12/11/2024 5:02 PM CDTDTLSpecimen (Source)Anatomical Location / LateralityCollection Method / VolumeCollection TimeReceived TimeBlood (Blood, Peripheral Draw) 12/06/2024 4:30 PM CDT1 4:47 PM CDTComment:Specimen Source Site: Blood Narrative Authorizing ProviderResult TypeResult StatusSharona Osborne M.D.LAB MICROBIOLOGY - GENERAL ORDERABLESFinal ResultPerforming OrganizationAddressCity/State/ZIP CodePhone Number [facility] [place] [address] [place] [address] * Osmolality, Urine (12/06/2024 4:28 PM CDT)ComponentValueRef RangeTest Method Analysis TimePerformed AtPathologist SignatureOsmolality, L635388 - 1150 mOsm/kg12/06/2024 7:28 PM CDTDTLSpecimen (Source)Anatomical Location / LateralityCollection Method / VolumeCollection TimeReceived TimeUrine 12/06/2024 4:28 PM CDT1 5:48 PM CDT Narrative Authorizing ProviderResult TypeResult StatusNydia Mueller M.D.LAB URINE ORDERABLESFinal ResultPerforming OrganizationAddressCity/State/ZIP CodePhone Number [facility] [place] [address] [place] [address], [place] [address] * Microscopic Automated (12/06/2024 4:28 PM CDT)ComponentValueRef RangeTest MethodAnalysis TimePerformed AtPathologist UhecxjdhoPqpndsfdotNdbmkt02/23/2025 6:08 PM CDTDTLRBCNone Seen<3 /hpf12/06/2024 6:08 PM CDTDTLWBCNone Seen/hpf 12/06/2024 6:08 PM CDTDTLComment: ----REFERENCE VALUE---- <4 (Males) <11 (Females) Specimen (Source)Anatomical Location / LateralityCollection Method / Volume Collection TimeReceived DqipVmnro92/23/2025 4:28 PM CDT1 5:48 PM CDT Narrative Authorizing ProviderResult TypeResult StatusNydia Mueller M.D.LAB URINE ORDERABLESFinal ResultPerforming OrganizationAddressty/State/[place] [address], [place] [address] * pH, Urine (12/06/2024 4:28 PM CDT)ComponentValueRef RangeTest MethodAnalysis TimePerformed AtPathologist SignaturepH, U5.94.5 - 8. 7:28 PM CDT DTLSpecimen (Source)Anatomical Location / LateralityCollection Method / Volume Collection TimeReceived HzglEvgge16/23/2025 4:28 PM CDT1 5:48 PM CDT Narrative Authorizing ProviderResult TypeResult StatusNydia Mueller M.D.LAB URINE ORDERABLESFinal ResultPerforming OrganizationAddress[facility]/[place] [address], [place] [address] * Dipstick, Urine (12/06/2024 4:28 PM CDT)ComponentValueRef RangeTest Method Analysis TimePerformed AtPathologist SignatureHemoglobin, QL, UNegative Jhzssxum36/23/2025 6:08 PM CDTDTLLeukocyte Esterase, UNegativeNegative 12/06/2024 6:08 PM CDTDTLNitrite, LRxsrvepfJokrajrk51/23/2025 6:08 PM CDTDTL Ketone, UNegativeNegative mg/dL12/06/2024 6:08 PM CDTDTLGlucose, UNegative Negative mg/dL12/06/2024 6:08 PM CDTDTLSpecimen (Source)Anatomical Location / LateralityCollection Method / VolumeCollection TimeReceived TimeUrine 12/06/2024 4:28 PM CDT1 5:48 PM CDT Narrative Authorizing ProviderResult TypeResult StatusElizapuma Mueller M.D.LAB URINE ORDERABLESFinal ResultPerforming OrganizationAddressCity/State/ZIP CodePhone Number [facility] [place] [address] [place] [address], [facility] [address] [place] [address] * Respiratory Panel, PCR, Nasopharyngeal (12/06/2024 4:28 PM CDT)ComponentValue Ref RangeTest MethodAnalysis TimePerformed AtPathologist SignatureSpecimen SourceNASOPHARYNGEAL SWAB12/06/2024 7:24 PM CDTDTLAdenovirusUndetected Erwcwukqyi91/23/2025 7:24 PM CDTDTLCoronavirus 229EUndetectedUndetected 12/06/2024 7:24 PM CDTDTLCoronavirus NKE3CuwizbywyvHrmexmomgy30/23/2025 7:24 PM CDTDTLCoronavirus LS06HpgxzgfznhMimjnboxbr27/23/2025 7:24 PM CDTDTL Coronavirus PM22ZhdriklnpdSyifbiywcu39/23/2025 7:24 PM CDTDTLSARS Coronavirus-9SufzerzxntCccndmzkrg09/23/2025 7:24 PM CDTDTLComment: SARS-CoV-2 RNA absent. This result does not rule out COVID-19 in the patient, as the sensitivity of the test depends on the timing of the specimen collection and the quality of the specimen. Result should be correlated with patient's history and clinical presentation. Human BkikiobwntwhnymUnohuufpocWqvlapauas55/23/2025 7:24 PM CDTDTLHuman Rhinovirus/ RjfpcpnznkkLenvqvambjYgopdsnslc63/23/2025 7:24 PM CDTDTLInfluenza A RcivhqhzhpNrkchnmobk36/23/2025 7:24 PM CDTDTLInfluenza BUndetectedUndetected 12/06/2024 7:24 PM CDTDTLParainfluenza Virus 8QqjkchqzkyFjetbdqpwd87/23/2025 7:24 PM CDTDTLParainfluenza Virus 1FdpicwcxrgJxgimhukul85/23/2025 7:24 PM CDTDTL Parainfluenza Virus 2JwrmuvxeivUsdaaerssv37/23/2025 7:24 PM CDTDTLParainfluenza Virus 3VfqucdlefxQsjtirpodb98/23/2025 7:24 PM CDTDTLRespiratory Syncytial Virus, VYWXukevmzufcQjepddpuxf95/23/2025 7:24 PM CDTDTLBordetella parapertussis ArcxisbepuEscsoqzcvh80/23/2025 7:24 PM CDTDTLBordetella pertussisUndetected Eobjiufpfk41/23/2025 7:24 PM CDTDTLChlamydia pneumoniaeUndetectedUndetected 12/06/2024 7:24 PM CDTDTLMycoplasma jpwevkyjbcYvhllfesahPdiamybnvf32/23/2025 7:24 PM CDTDTLInterpretationThis assay is not predicted to detect SARS- coronavirus (CoV), or MERS-CoV. If SARS-CoV or MERS-CoV is suspected, coordinate testing through a local public health laboratory. 12/06/2024 7:24 PM CDTDTLComment: ----ADDITIONAL INFORMATION---- This assay is performed using the FDA-Cleared FilmArray Respiratory Panel 2.1 (Germin8). Specimen (Source)Anatomical Location / LateralityCollection Method / Volume Collection TimeReceived TimeSwab (Nasopharynx)12/06/2024 4:28 PM CDT1 6:19 PM CDT Narrative Authorizing ProviderResult TypeResult StatusLajo Osborne M.D.LAB MICROBIOLOGY - GENERAL ORDERABLESFinal ResultPerforming OrganizationAddressCity/State/ZIP CodePhone Number [facility] [place] [address] [place] [address], [place] [facility] 200 [facility] 200 [place] [address] * (ABNORMAL) Bacterial Culture, Aerobic + Susceptibility, Urine (12/06/2024 4:28 PM CDT)ComponentValueRef RangeTest MethodAnalysis TimePerformed AtPathologist SignatureUrine CultureWith urogenital microbiota, susceptibilities not performed per laboratory criteria. (A)12/08/2024 2:26 PM CDTDTLUrine CultureESCHERICHIA COLI 10,000-100,000 cfu/mL (A)12/08/2024 2:26 PM CDTDTLSpecimen (Source)Anatomical Location / Laterality Collection Method / VolumeCollection TimeReceived TimeUrine (Urine, Midstream) 12/06/2024 4:28 PM CDT1 6:03 PM CDTComment:Specimen Source Site: Urine Narrative OrganismAntibioticMethodSusceptibilityEscherichia coliAmpicillinSUSCEPTIBILITY, JOSEPH (MCG/ML) 8 mcg/mL: Susceptible Escherichia coliMeropenemSUSCEPTIBILITY, JOSEPH (MCG/ML) <=0.12 mcg/mL: Susceptible Escherichia coliErtapenemSUSCEPTIBILITY, JOSEPH (MCG/ML) <=0.25 mcg/mL: Susceptible Escherichia coliPiperacillin + TazobactamSUSCEPTIBILITY, JOSEPH (MCG/ML) <=8/4 mcg/mL: Susceptible Escherichia coliCiprofloxacinSUSCEPTIBILITY, JOSEPH (MCG/ML) <=0.25 mcg/mL: Susceptible Escherichia coliLevofloxacinSUSCEPTIBILITY, JOSEPH (MCG/ML) <=0.5 mcg/mL: Susceptible Escherichia coliCefazolinSUSCEPTIBILITY, JOSEPH (MCG/ML) <=2 mcg/mL: Susceptible Escherichia coliCeftriaxoneSUSCEPTIBILITY, JOSEPH (MCG/ML) <=1 mcg/mL: Susceptible Escherichia coliCeftazidimeSUSCEPTIBILITY, JOSEPH (MCG/ML) <=4 mcg/mL: Susceptible Escherichia coliCefepimeSUSCEPTIBILITY, JOSEPH (MCG/ML) <=2 mcg/mL: Susceptible Escherichia coliCefazolin (Uncomplicated UTI)SUSCEPTIBILITY, JOSEPH (MCG/ML) <=2 mcg/mL: Susceptible Comment: The interpretation applies to uncomplicated urinary tract infections only. It also applies to these oral cephalosporins: cefuroxime, cephalexin, and cefprozil. Escherichia coliCefdinirSUSCEPTIBILITY, JOSEPH (MCG/ML) <=1 mcg/mL: Susceptible Escherichia coliAmikacinSUSCEPTIBILITY, JOSEPH (MCG/ML) <=4 mcg/mL: Susceptible Escherichia coliGentamicinSUSCEPTIBILITY, JOSEPH (MCG/ML) <=1 mcg/mL: Susceptible Escherichia coliTobramycinSUSCEPTIBILITY, JOSEPH (MCG/ML) <=1 mcg/mL: Susceptible Escherichia coliAztreonamSUSCEPTIBILITY, JOSEPH (MCG/ML) <=4 mcg/mL: Susceptible Escherichia coliTrimethoprim + SulfamethoxazoleSUSCEPTIBILITY, JOSEPH (MCG/ML) <=0.5/9.5 mcg/mL: Susceptible Escherichia coliNitrofurantoinSUSCEPTIBILITY, JOSEPH (MCG/ML) <=32 mcg/mL: Susceptible Escherichia coliFosfomycinSUSCEPTIBILITY, JOSEPH (MCG/ML) <=64 mcg/mL: Susceptible Authorizing ProviderResult TypeResult Bj Osborne M.D.LAB MICROBIOLOGY - GENERAL ORDERABLESFinal ResultPerforming OrganizationAddressCity/State/ZIP CodePhone Number [address] [address], [facility] [place] [address] * Urinalysis, with Microscopic: Urine, Midstream (12/06/2024 4:28 PM CDT) ComponentValueRef RangeTest MethodAnalysis TimePerformed AtPathologist SignatureSourceUrine, Urine, Ebpfrgkdy58/23/2025 5:48 PM CDTDTLColor, UYellow 12/06/2024 5:48 PM CDTDTLClarity, WMzjvs3512/06/2024 5:48 PM CDTDTLProtein, U4 <26 mg/dL12/06/2024 6:24 PM CDTDTLProtein/Osmolality0.16<0.42 ratio12/06/2024 7:28 PM CDTDTLPredicted 24 HR Protein, U162<229 mg/24 h1 7:28 PM CDT DTLPredicted Xocic98-097vt/24 h1 7:28 PM CDTDTLSpecimen (Source) Anatomical Location / LateralityCollection Method / VolumeCollection Time Received TimeUrine (Urine, Midstream)12/06/2024 4:28 PM CDT1 5:48 PM CDT Narrative Authorizing ProviderResult TypeResult Bj Osborne M.D.LAB URINE ORDERABLESFinal ResultPerforming OrganizationAddressCity/State/ZIP CodePhone Number [facility] [place] [address] [place] [address], [facility] [place] [address] * (ABNORMAL) Troponin T, 2 Hour with 6 Hour Reflex, 5th Gen (12/06/2024 3:54 PM CDT)ComponentValueRef RangeTest MethodAnalysis TimePerformed AtPathologist SignatureTroponin T, 2 hr, 5th gen59(H)<=15 ng/L1 4:34 PM GQOEVNH3O Delta-14(A)ng/L1 4:34 PM CDTSTMAComment:6 hour collection pending.2H Delta InterpChanging(A)12/06/2024 4:34 PM CDTSTMAComment:Evaluate for acute myocardial injurySpecimen (Source)Anatomical Location / LateralityCollection Method / VolumeCollection TimeReceived NthyGfrcd22/23/2025 3:54 PM CDT 12/06/2024 4:10 PM CDT Narrative Authorizing ProviderResult TypeResult StatusNydia Mueller M.D.LAB BLOOD TROPONINFinal ResultPerforming OrganizationAddressCity/State/ZIP CodePhone Number [facility] [place] [address] [place] [address], [facility] STMA [facility] [address] [place] [address] * (ABNORMAL) Prothrombin Time (PT) (12/06/2024 1:40 PM CDT)ComponentValueRef RangeTest MethodAnalysis TimePerformed AtPathologist SignatureProthrombin Time, P14.7(H)9.4 - 12.5 sec12/06/2024 1:59 PM CDTSTMAINR1.30.9 - 1.1 12/06/2024 1:59 PM CDTSTMAComment: ----ADDITIONAL INFORMATION---- Standard intensity warfarin therapeutic range: 2.0 to 3.0 ?? High intensity warfarin therapeutic range: 2.5 to 3.5 Specimen (Source)Anatomical Location / LateralityCollection Method / Volume Collection TimeReceived TimeBlood (Blood, Venous)12/06/2024 1:40 PM CDT 12/06/2024 1:48 PM CDT Narrative Authorizing ProviderResult TypeResult Bj Osborne M.D.LAB BLOOD ADD-ON Final ResultPerforming OrganizationAddressCity/State/[place] [address], [place] [address] * (ABNORMAL) Troponin T, Baseline with 2 Hour/6 Hour Reflex Biomarker Panel (12/06/2024 1:40 PM CDT)ComponentValueRef RangeTest MethodAnalysis Time Performed AtPathologist SignatureTroponin T, Baseline, 5th gen73(H)<=15 ng/L 12/06/2024 2:38 PM CDTSTMASpecimen (Source)Anatomical Location / Laterality Collection Method / VolumeCollection TimeReceived TimeBlood (Blood, Venous) 12/06/2024 1:40 PM CDT1 1:48 PM CDT Narrative Authorizing ProviderResult TypeResult Bj Osborne M.D.LAB BLOOD TROPONINFinal ResultPerforming OrganizationAddressCity/State/[place] [address] * (ABNORMAL) NT-Pro B-Type Natriuretic Peptide (BNP) (12/06/2024 1:40 PM CDT) ComponentValueRef RangeTest MethodAnalysis TimePerformed AtPathologist SignatureNT-Pro FZH606(H)<=540 pg/mL12/06/2024 2:38 PM CDTSTMAComment: NT-proBNP values less than 300 pg/mL have [...] age in the absence of renal failure. Specimen (Source)Anatomical Location / LateralityCollection Method / Volume Collection TimeReceived TimeBlood (Blood, Venous)12/06/2024 1:40 PM CDT 12/06/2024 1:48 PM CDT Narrative Authorizing ProviderResult TypeResult StatusSharona Osborne M.D.LAB BLOOD ADD-ON Final ResultPerforming OrganizationAddressCity/State/ZIP CodePhone Number [facility] [place] [address] [place] [address], [facility] [address] [place] [address] * (ABNORMAL) CBC with Differential, Blood (12/06/2024 1:40 PM CDT)ComponentValue Ref RangeTest MethodAnalysis TimePerformed AtPathologist SignatureHemoglobin 12.9(L)13.2 - 16.6 g/dL12/06/2024 2:41 PM BDPHRRMMyofkckbei27.638.3 - 48.6 % 12/06/2024 2:41 PM CDTSTMAErythrocytes4.584.35 - 5.65 x10(12)/L1 2:41 PM FGYHFOHJIS78.578.2 - 97.9 fL12/06/2024 2:41 PM CDTSTMARBC Distrib Width 14.8(H)11.8 - 14.5 %12/06/2024 2:41 PM CDTSTMAPlatelet Fyacb700048 - 317 x10(9)/L1 2:41 PM WKPGFCCLidduazlwm26.6(H)3.4 - 9.6 x10(9)/L 12/06/2024 2:41 PM TGCAEFKCvxycpreqea36.47(H)1.56 - 6.45 x10(9)/L1 2:41 PM CDTSTMALymphocytes0.48(L)0.95 - 3.07 x10(9)/L1 2:41 PM CDT STMAMonocytes0.540.26 - 0.81 x10(9)/L1 2:41 PM CDTSTMAEosinophils0.03 0.03 - 0.48 x10(9)/L1 2:41 PM CDTSTMABasophils0.030.01 - 0.08 x10(9)/L1 2:41 PM CDTSTMASpecimen (Source)Anatomical Location / LateralityCollection Method / VolumeCollection TimeReceived TimeBlood (Blood, Venous)12/06/2024 1:40 PM CDT1 1:48 PM CDT Narrative Authorizing ProviderResult TypeResult StatusLajo Osborne M.D.LAB BLOOD ADD-ON Final ResultPerforming OrganizationAddressCity/State/ZIP CodePhone Number [facility] [place] [address] [place] [address], [facility] [address] [place] [address] * (ABNORMAL) Basic Metabolic Panel (12/06/2024 1:40 PM CDT)ComponentValueRef RangeTest MethodAnalysis TimePerformed AtPathologist SignaturePotassium, P4.3 3.6 - 5.2 mmol/L1 2:04 PM CDTSTMASodium, U590579 - 145 mmol/L 12/06/2024 2:04 PM CDTSTMAChloride, P94(L)98 - 107 mmol/L1 2:04 PM CDTSTMABicarbonate, P2922 - 29 mmol/L1 2:04 PM CDTSTMAAnion Gap, P127 - 151 2:04 PM CDTSTMABUN (Blood Urea Nitrogen), P27(H)8 - 24 mg/dL 12/06/2024 2:04 PM CDTSTMACreatinine1.230.74 - 1.35 mg/dL12/06/2024 2:04 PM CDTSTMAEstimated GFR (eGFR)56(L)>=60 mL/min/BSA12/06/2024 2:04 PM CDTSTMA Comment: Estimated GFR calculated using the 2020 CKD_EPI creatinine equation. Calcium, Total, P9.28.8 - 10.2 mg/dL12/06/2024 2:04 PM CDTSTMAGlucose, O07139 - 140 mg/dL12/06/2024 2:04 PM CDTSTMASpecimen (Source)Anatomical Location / LateralityCollection Method / VolumeCollection TimeReceived TimeBlood (Blood, Venous)12/06/2024 1:40 PM CDT1 1:48 PM CDT Narrative Authorizing ProviderResult TypeResult Bj Osborne M.D.LAB BLOOD ADD-ON Final ResultPerforming OrganizationAddressCity/State/ZIP CodePhone Number [facility] [place] [address] [place] [address], [place] STMA [facility] [address] [place] [address] * DX Chest AP or PA and Lateral 2 Views (12/06/2024 1:23 PM CDT)Anatomical RegionLateralityModalityChest, Thoracic RST LOS, Thoracic ARZ LOS, Thoracic FLA LOSN/ADigital RadiographySpecimen (Source)Anatomical Location / Laterality Collection Method / VolumeCollection TimeReceived Time Impressions 12/06/2024 1:42 PM CDT Opacities in the left lung base have improved since 11/16/2024. No other change. Reticulation in the lung bases representing interstitial fibrosis. No new consolidation or effusion. Pacer. Narrative 12/06/2024 1:42 PM CDT EXAM: DX CHEST AP OR PA AND LATERAL 2 VIEWS Procedure Note Jasen Looney M.D. - 12/06/2024 EXAM: DX CHEST AP OR PA AND LATERAL 2 VIEWS IMPRESSION: Opacities in the left lung base have improved since 11/16/2024. No otherchange. Reticulation in the lung bases representing interstitial fibrosis.No new consolidation or effusion. Pacer. Authorizing ProviderResult TypeResult Bj Osborne M.D.IMG DIAGNOSTIC IMAGING PROCEDURESFinal Result * ECG 12 Lead (12/06/2024 12:46 PM CDT)ComponentValueRef RangeTest Method Analysis TimePerformed AtPathologist SignatureVentricular Rate ECG/Rsh32MHN MUSEPR Otxnzahl489ldLOVECNTW Fuvzfrxe735cyKLXYGT Eealmroe806ghUYZERLO Interval 428msMUSEP Fkae43lgwsmruEIKFG Butler-77degreesMUSET Wave Ccxt93rwaptjzGHMA Specimen (Source)Anatomical Location / LateralityCollection Method / Volume Collection TimeReceived Time12/06/2024 12:46 PM CDT1 1:31 PM CDT Impressions MUSE - 12/06/2024 1:09 PM CDT Demand atrial pacing; Interpretation is based on intrinsic rhythm Atrial-sensed ventricular-paced rhythm Sinus rhythm Premature atrial complexes When compared with ECG of 10-Nov-2024 04:51, No significant change was found Revised Report Narrative Procedure Note Benja Cotter M.D. - 12/06/2024 IMPRESSION: Demand atrial pacing; Interpretation is based on intrinsic rhythm Atrial-sensed ventricular-paced rhythm Sinus rhythm Premature atrial complexes When compared with ECG of 10-Nov-2024 04:51, No significant change was found Revised Report Authorizing ProviderResult TypeResult StatusLajo Osborne M.D.ECG ORDERABLES Edited Result - FinalPerforming OrganizationAddressCity/State/ZIP CodePhone Number MUSE NA documented in this encounter Visit Diagnoses Diagnosis Acute And Chronic Respiratory Failure With Hypoxia (HCC)- Primary Sepsis (HCC) Dysphagia Oropharyngeal Phase [R13.12] Acute And Chronic Respiratory Failure With Hypoxia (HCC) Apnea Sleep Obstructive Elevated Creatinine Decline Functional Status [R53.81] 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 Pneumonia Bacteriuria Asymptomatic Acute And Chronic Respiratory Failure With Hypoxia (HCC) documented in this encounter Admitting Diagnoses Diagnosis Sepsis (HCC) documented in this encounter Administered Medications Medication OrderMAR ActionAction DateDoseRateSite acetaminophen tablet 500 mg (TylenoL) 500 mg, oral, Every 6 hours PRN, mild pain or score 1-3 of 10, moderate pain or score 4-6 of 10, severe pain or score 7-10 of 10, fever, Starting on Tue12/07/24 at 0838 Given12/07/2024 9:53 AM DGO312 mg acetaminophen tablet 650 mg (TylenoL) 650 mg, oral, Every 6 hours PRN, mild pain or score 1-3 of 10, moderate pain or score 4-6 of 10, severe pain or score 7-10 of 10, fever, Starting on Tue12/07/24 at 0959 albuterol nebulizer solution 2.5 mg 2.5 mg, nebulization, Every 4 hours PRN, wheezing, shortness of breath, Starting on Tue12/07/24 pu1946 Given12/09/2024 3:16 PM CDT2.5 yeQlamu8112/08/2024 9:44 PM CDT2.5 mgGiven 12/08/2024 11:37 AM CDT2.5 mg ampicillin-sulbactam 3 g in NaCl 0.9% IVPB (Unasyn) 3 g, intravenous, at 400 mL/hr, Administer over 15 Minutes, Every 6 hours, First dose on [place] 12/06/24 at 2200, Mini-bag Plus bag Pediatrics: 3 grams of ampicillin-sulbactam = 2000 mg ampicillin, DrugMonitoring Program: Pharmacist to adjust medication dosing based on indication and drug clearance factors., Indications: Respiratory tract infection, community acquired Indications:Respiratory tract infection, community acquiredNew Bag12/07/2024 4:41 AM CDT3 g400 mL/hrNew Bag12/06/2024 10:56 PM CDT3 g400 mL/hr barium 40 % (w/v) suspension 20 mL 20 mL, oral, Once in imaging, contrast, Starting on Tue12/07/24 at 1113, For 1 dose Given12/07/2024 11:14 AM CDT20 mL barium 40 % (w/v), 30% (w/w) paste 10 mL (Varibar Pudding) 10 mL, oral, Once in imaging, contrast, Starting on Tue12/07/24 at 1113, For 1 dose Given12/07/2024 11:14 AM CDT10 mL barium 81 % (w/w) oral powder for suspension 20 g (Varibar Thin Liquid) 20 g (50 mL), oral, Once in imaging, contrast, Starting on Tue12/07/24 at 1113, For 1 dose Given12/07/2024 11:13 AM CDT[address] tablet 10 mg (Dulcolax) 10 mg, oral, Once, On 12/10/24 at 1115, For 1 dose, Swallow whole. Do NOT crush, chew, or splittablet. Given12/10/2024 1:37 PM CDT10 mg bisacodyL suppository 10 mg (Dulcolax) 10 mg, rectal, Daily PRN, constipation, Starting on Tue12/06/24 at 2031, Ordered sequence of administration: polyethylene glycol, then bisacodyl until BM achieved. budesonide 0.25 mg/2 mL nebulizer solution 0.25 mg (Pulmicort) 0.25 mg, nebulization, 2 times daily, First dose on Tue12/07/24 at 0900, Rinse mouth with water after use to reduce aftertaste and incidence of candidiasis. Do not swallow. Given12/10/2024 10:21 AM CDT0.25 emNqeqw9612/09/2024 8:05 PM CDT0.25 mgGiven 12/09/2024 9:39 AM CDT0.25 mg ceFEPIme injection 2 g (Maxipime) 2 g, intravenous, Once, On [place] 12/06/24 at 1612, For 1 dose, Administer IV push over 3 minutes., Drug Monitoring Program: Pharmacist to adjust medication dosing based on indication and drug clearancefactors., Indications: Respiratory tract infection, healthcare associated Indications:Respiratory tract infection, healthcare hmhbjctqrkBrymf32/23/2025 4:51 PM CDT2 g cefTRIAXone in dextrose (iso osm) IVPB 2 g (Rocephin) 2 g, intravenous, at 200 mL/hr, Administer over 15 Minutes, Every 24 hours, First dose on Tue12/07/24 at 1000, For 4 days, Drug Monitoring Program: Pharmacist to adjust medication dosing based on indication and drug clearance factors., Indications: Respiratory tract infection, community acquired Indications:Respiratory tract infection, community acquiredNew Bag12/10/2024 5:52 AM CDT2 g200 mL/hrNew Bag12/09/2024 9:41 AM CDT2 g200 mL/hrNew Bag 12/08/2024 9:34 AM CDT2 g200 mL/hr cholecalciferol (vitamin D3) tablet 25 mcg 25 mcg, oral, Daily, First dose on Tue12/07/24 at 0900, cholecalciferol (vitamin D3) orderable wasinterchanged for cholecalciferol (vitamin D3) tablet/capsule Given12/10/2024 9:31 AM CDT25 ubwXhxnd65/26/2025 9:38 AM CDT25 mcgGiven 12/08/2024 9:33 AM CDT25 mcg doxycycline monohydrate tablet 100 mg (Avidoxy) 100 mg, oral, 2 times daily before morning and evening meals, First dose on Tue12/07/24 at 0700, For 10 doses, Administer 2 hours before or 6 hours after taking magnesium, aluminum (antacids, laxatives) or calcium and iron supplements (multivitamins). Ensure patient remains upright for 30 minutes post-dose., Drug Monitoring Program: Pharmacist to adjust medication dosing based on indication and drug clearance factors., Indications: Respiratory tract infection, community acquired Indications:Respiratory tract infection, community wmhglmokGqpvx02/27/2025 5:52 AM PBE951 wnVgrme7012/09/2024 4:03 PM OSY944 pdAlqmx4012/09/2024 5:09 AM NDH911 mg ferrous sulfate tablet 65 mg of iron 65 mg of iron, oral, Every other day, First dose on Tue12/08/24 at 0900 Given12/10/2024 9:31 AM CDT65 mg of vjvtQjser29/25/2025 9:33 AM CDT65 mg of iron finasteride tablet 5 mg (Proscar) 5 mg, oral, Daily, First dose on Tue12/07/24 at 0900, See tube feeding guidelines for tube feedingadministration instructions. Given12/10/2024 10:18 AM CDT5 wzQfbfe0412/09/2024 9:38 AM CDT5 eeYrffu0012/08/2024 9:33 AM CDT5 mg fluticasone furoate-vilanteroL 100-25 mcg/actuation inhaler 1 puff (Breo Ellipta) 1 puff, inhalation, Daily (RT), First dose on Tue12/07/24 at 0800, Rinse mouth with water after use to reduce aftertaste and incidence of candidiasis. Do not swallow. 1. Hold device upright in righthand with rough edge. 2. Using left hand open lid (toward left) until click is heard. 3. Tilt inhaler flat so air entrainment vents & counter face up. 4. Inhale to full breath somewhat fast. 5. Hold breath up to 10 seconds. 6. Remove inhaler from mouth. 7. Close lid. Given12/10/2024 10:18 AM CDT1 pgarDljhz09/26/2025 9:39 AM CDT1 puffGiven 12/08/2024 9:34 AM CDT1 puff furosemide injection 100 mg (Lasix) 100 mg, intravenous, Once, On 12/08/24 at 1100, For 1 dose, Adults: Doses less than 120 mg: IV push over 20 mg/minute. Doses 120 mg or greater: IVPB at 4 mg/minute. Peds/Neonates: Doses less ukst642 mg over 0.5 mg/kg/minute. Doses 120 mg or greater: IVPB at 4 mg/minute. Given12/08/2024 11:30 AM DSZ374 mg Lactated Ringer's bolus 500 mL 500 mL, intravenous, at 500 mL/hr, Administer over 1 Hours, Once, On [place] 12/06/24 at 2345, For 1 dose New Bag12/07/2024 12:54 AM JYG502 mL500 mL/hr magnesium oxide tablet 400 mg (Mag-Ox) 400 mg, oral, 2 times daily before morning and evening meals, First dose on Tue12/09/24 at 1600 12/10/2024 5:52 AM OII088 uzWnjqy6512/09/2024 4:03 PM DUS054 mg montelukast tablet 10 mg (Singulair) 10 mg, oral, Daily at bedtime, First dose on Tue12/07/24 at 2100 12/09/2024 8:05 PM CDT10 cbHpmmh1512/08/2024 7:41 PM CDT10 waHqcrv2012/07/2024 8:37 PM CDT10 mg multivitamin/mineral- tablet 1 tablet 1 tablet, oral, Daily, First dose on Tue12/07/24 at 0915 Given12/10/2024 9:31 AM CDT1 smusctCsfst87/26/2025 9:38 AM CDT1 tabletGiven 12/08/2024 9:33 AM CDT[address] tablet 40 mg (Protonix) 40 mg, oral, Daily before morning meal, First dose on Tue12/08/24 at 0700, pantoprazole 40 mg oraldaily was interchanged for omeprazole 20 or 40 mg oral daily Swallow whole. Do NOT crush, chew, or split tablet. Given12/10/2024 5:52 AM CDT40 ehLmisj8512/09/2024 5:09 AM CDT40 ryGiihq8412/08/2024 6:57 AM CDT40 mg polyethylene glycol powder packet 17 g (Miralax) 17 g, oral, Daily, First dose (after last modification) on Tue12/08/24 at 0900, Ordered sequence of administration: polyethylene glycol, then bisacodyl until BM achieved. Avoid mixing with starch-based thickened liquids. 12/08/2024 9:39 AM CDT17 g polyethylene glycol powder packet 17 g (Miralax) 17 g, oral, Daily, First dose (after last modification) on Tue12/09/24 at 0900, Ordered sequence of administration: polyethylene glycol, then bisacodyl until BM achieved. Avoid mixing with starch-based thickened liquids. predniSONE tablet 60 mg (Deltasone) 60 mg, oral, Daily, First dose on Tue12/07/24 at 0915 12/10/2024 9:31 AM CDT60 yaYvyiw4312/09/2024 9:38 AM CDT60 ieLykww7712/08/2024 9:33 AM CDT60 mg rivaroxaban tablet 15 mg (Xarelto) 15 mg, oral, Daily with evening meal, First dose (after last modification) on Tue12/07/24 at 1700 12/09/2024 4:03 PM CDT15 buXovuc0912/08/2024 4:43 PM CDT15 uvDlcgl4812/07/2024 5:10 PM CDT15 mg sennosides tablet 17.2 mg (Senokot) 17.2 mg, oral, Daily at bedtime, First dose (after last modification) on Tue12/09/24 at 2100 12/09/2024 8:05 PM CDT17.2 mg sennosides tablet 8.6 mg (Senokot) 8.6 mg, oral, Daily at bedtime, First dose on Tue12/07/24 at 2100 12/08/2024 7:41 PM CDT8.6 ehSqrqn9512/07/2024 8:37 PM CDT8.6 mg sertraline tablet 50 mg (Zoloft) 50 mg, oral, Daily, First dose on Tue12/07/24 at 0900 12/10/2024 9:31 AM CDT50 jaZspfw8212/09/2024 9:38 AM CDT50 dvKueyg9912/08/2024 9:33 AM CDT50 mg sodium chloride 0.9 % injection 10 mL 10 mL, intravenous, As needed, line care, Starting on Lindsey 12/06/24 at 1259, Peripheral Intravenous Catheter and Rapid Infusion Catheter, prior to blood sampling, post blood transfusion or post blood sampling sodium chloride 0.9 % injection 3 mL 3 mL, intravenous, As needed, line care, Starting on [place] 12/06/24 at 1259, Prior to and following infusion and between multiple consecutive infusions: sodium chloride 0.9 % injection sodium chloride 0.9 % injection 3 mL 3 mL, intravenous, Every 12 hours scheduled, First dose on [place] 12/06/24 at 2100, Peripheral Intravenous Catheter and Rapid Infusion Catheter, when no infusion to maintain patency Given12/09/2024 8:06 PM CDT3 gJYwppu7512/09/2024 9:41 AM CDT3 oNAbpue0212/08/2024 7:44 PM CDT3 mL sulfamethoxazole-trimethoprim 400-80 mg per tablet 1 tablet (Bactrim) 1 tablet, oral, Daily, First dose on Tue12/09/24 at 1230, Drug Monitoring Program: Pharmacist to adjust medication dosing based on indication and drug clearance factors., Indications: Prophylaxis, medical Indications:Prophylaxis, qtlexhhZqmwp66/27/2025 9:31 AM CDT1 tabletGiven 12/09/2024 12:44 PM CDT1 tabletdocumented in this encounter Active and Recently Administered Medications Times are shown in CDT.Medication Order bisacodyL DR tablet 10 mg (Dulcolax) (COMPLETED) 10 mg, oral, Once, On 12/10/24 at 1115, For 1 dose, Swallow whole. Do NOT crush, chew, or splittablet. * 8573 (Given - Provider: Kayla Damon R.N. - Comment: pt napping.) budesonide 0.25 mg/2 mL nebulizer solution 0.25 mg (Pulmicort) 0.25 mg, nebulization, 2 times daily, First dose on Tue12/07/24 at 0900, Rinse mouth with water after use to reduce aftertaste and incidence of candidiasis. Do not swallow. * 0934 (Given - Provider: Vy Root R.N.) * 194 (Given - Provider: Kenya Stallworth R.N.) * 0939 (Given - Provider: Vy Root R.N.) * 2004 (Given - Provider: Gayatri Bingham R.N.) * 1021 (Given - Provider: Kayla Damon R.N.) cefTRIAXone in dextrose (iso osm) IVPB 2 g (Rocephin) (COMPLETED) 2 g, intravenous, at 200 mL/hr, Administer over 15 Minutes, Every 24 hours, First dose on Tue12/07/24 at 1000, For 4 days, Drug Monitoring Program: Pharmacist to adjust medication dosing based on indication and drug clearance factors., Indications: Respiratory tract infection, community acquired * 0934 (New Bag - Provider: Vy Root R.N.) * 0941 (New Bag - Provider: Vy Root R.N.) * 0552 (New Bag - Provider: Gayatri Bingham R.N.) cholecalciferol (vitamin D3) tablet 25 mcg 25 mcg, oral, Daily, First dose on Tue12/07/24 at 0900, cholecalciferol (vitamin D3) orderable wasinterchanged for cholecalciferol (vitamin D3) tablet/capsule * 0933 (Given - Provider: Vy Root R.N.) * 0938 (Given - Provider: Vy Root R.N.) * 0931 (Given - Provider: Kayla Damon R.N.) doxycycline monohydrate tablet 100 mg (Avidoxy) 100 mg, oral, 2 times daily before morning and evening meals, First dose on Tue12/07/24 at 0700, For 10 doses, Administer 2 hours before or 6 hours after taking magnesium, aluminum (antacids, laxatives) or calcium and iron supplements (multivitamins). Ensure patient remains upright for 30 minutes post-dose., Drug Monitoring Program: Pharmacist to adjust medication dosing based on indication and drug clearance factors., Indications: Respiratory tract infection, community acquired * 0657 (Given - Provider: Ellen Kat R.N.) * 1643 (Given - Provider: Pilar VillagomezNAna) * 0509 (Given - Provider: Kenya Stallworth RAnaNAna) * 1603 (Given - Provider: Tawanna Estrella RAnaNAna) * 0552 (Given - Provider: Gayatri Bingham RAnaNAna) ferrous sulfate tablet 65 mg of iron 65 mg of iron, oral, Every other day, First dose on Tue12/08/24 at 0900 * 0933 (Given - Provider: Vy Root R.N.) * 0931 (Given - Provider: Pilar SilvaN.) finasteride tablet 5 mg (Proscar) 5 mg, oral, Daily, First dose on Tue12/07/24 at 0900, See tube feeding guidelines for tube feedingadministration instructions. * 0933 (Given - Provider: Vy Root R.N.) * 0938 (Given - Provider: Vy Root R.N.) * 1018 (Given - Provider: Pilar SilvaN.) fluticasone furoate-vilanteroL 100-25 mcg/actuation inhaler 1 puff (Breo Ellipta) 1 puff, inhalation, Daily (RT), First dose on Tue12/07/24 at 0800, Rinse mouth with water after use to reduce aftertaste and incidence of candidiasis. Do not swallow. 1. Hold device upright in righthand with rough edge. 2. Using left hand open lid (toward left) until click is heard. 3. Tilt inhaler flat so air entrainment vents & counter face up. 4. Inhale to full breath somewhat fast. 5. Hold breath up to 10 seconds. 6. Remove inhaler from mouth. 7. Close lid. * 0934 (Given - Provider: Vy Root R.N.) * 0939 (Given - Provider: Vy Root R.N.) * 1018 (Given - Provider: Kayla Damon R.N.) furosemide injection 100 mg (Lasix) (COMPLETED) 100 mg, intravenous, Once, On Tue12/08/24 at 1100, For 1 dose, Adults: Doses less than 120 mg: IV push over 20 mg/minute. Doses 120 mg or greater: IVPB at 4 mg/minute. Peds/Neonates: Doses less jlwv868 mg over 0.5 mg/kg/minute. Doses 120 mg or greater: IVPB at 4 mg/minute. * 1130 (Given - Provider: Vy Root R.N.) magnesium oxide tablet 400 mg (Mag-Ox) 400 mg, oral, 2 times daily before morning and evening meals, First dose on Tue12/09/24 at 1600 * 1603 (Given - Provider: Tawanna Estrella R.N.) * 0552 (Given - Provider: Gayatri Bingham R.N.) montelukast tablet 10 mg (Singulair) 10 mg, oral, Daily at bedtime, First dose on Tue12/07/24 at 2100 * 1941 (Given - Provider: Kenya Stallworth R.N.) * 2004 (Given - Provider: Gayatri Bingham R.N.) multivitamin/mineral- tablet 1 tablet 1 tablet, oral, Daily, First dose on Tue12/07/24 at 0915 * 0933 (Given - Provider: Vy Root R.N.) * 0938 (Given - Provider: Vy Root R.N.) * 0931 (Given - Provider: Pilar SilvaNAna) pantoprazole DR tablet 40 mg (Protonix) 40 mg, oral, Daily before morning meal, First dose on 12/08/24 at 0700, pantoprazole 40 mg oraldaily was interchanged for omeprazole 20 or 40 mg oral daily Swallow whole. Do NOT crush, chew, or split tablet. * 0657 (Given - Provider: Ellen Kat R.N.) * 0509 (Given - Provider: Kenya Stallworth RShahnaz) * 0552 (Given - Provider: Gayatri Bingham R.N.) polyethylene glycol powder packet 17 g (Miralax) (CANCELED) 17 g, oral, Daily, First dose (after last modification) on 12/08/24 at 0900, Ordered sequence of administration: polyethylene glycol, then bisacodyl until BM achieved. Avoid mixing with starch-based thickened liquids. * 0939 (Given - Provider: Vy Root R.N.) polyethylene glycol powder packet 17 g (Miralax) 17 g, oral, Daily, First dose (after last modification) on Tue12/09/24 at 0900, Ordered sequence of administration: polyethylene glycol, then bisacodyl until BM achieved. Avoid mixing with starch-based thickened liquids. * 0944 (Not Given - Provider: Vy Root R.N. - Reason: Patient/family refused) * 0927 (Not Given - Provider: Kayla Damon R.N. - Reason: Order parameters not met) predniSONE tablet 60 mg (Deltasone) 60 mg, oral, Daily, First dose on Tue12/07/24 at 0915 * 0933 (Given - Provider: Vy Root R.N.) * 0938 (Given - Provider: Vy Root R.N.) * 0931 (Given - Provider: Kayla Damon RAnaN.) rivaroxaban tablet 15 mg (Xarelto) 15 mg, oral, Daily with evening meal, First dose (after last modification) on Tue12/07/24 at 1700 * 1643 (Given - Provider: Radha Chaney RAnaNAna) * 1603 (Given - Provider: Tawanna Estrella RAnaN.) sennosides tablet 17.2 mg (Senokot) 17.2 mg, oral, Daily at bedtime, First dose (after last modification) on Tue12/09/24 at 2100 * 2005 (Given - Provider: Gayatri Bingham RAnaN.) sennosides tablet 8.6 mg (Senokot) (CANCELED) 8.6 mg, oral, Daily at bedtime, First dose on Tue12/07/24 at 2100 * 1941 (Given - Provider: Kenya Stallworth RAnaN.) sertraline tablet 50 mg (Zoloft) 50 mg, oral, Daily, First dose on Tue12/07/24 at 0900 * 0933 (Given - Provider: Vy Root R.N.) * 0938 (Given - Provider: Vy Root R.N.) * 0931 (Given - Provider: Kayla Damon RAnaNAna) sodium chloride 0.9 % injection 3 mL 3 mL, intravenous, Every 12 hours scheduled, First dose on Tue12/06/24 at 2100, Peripheral Intravenous Catheter and Rapid Infusion Catheter, when no infusion to maintain patency * 0937 (Given - Provider: Vy Root R.N.) * 194 (Given - Provider: Pilar KoromaNAna) * 0941 (Given - Provider: Vy Root R.N.) * 2005 (Given - Provider: Gayatri Bingham R.N.) * 1115 (Not Given - Provider: Kayla Damon R.N. - Reason: Order parameters not met) sulfamethoxazole-trimethoprim 400-80 mg per tablet 1 tablet (Bactrim) 1 tablet, oral, Daily, First dose on Tue12/09/24 at 1230, Drug Monitoring Program: Pharmacist to adjust medication dosing based on indication and drug clearance factors., Indications: Prophylaxis, medical * 1244 (Given - Provider: Vy Root R.N.) * 0931 (Given - Provider: Kayla Damon R.N.) torsemide tablet 60 mg (Demadex) 60 mg, oral, Daily, First dose on Tue12/07/24 at 0900, On hold since Tue12/06/2024 at 2334 until manually unheld * 0900 (Not Given - Provider: Tawanna Estrella R.N. - Reason: See Provider Order) * 0900 (Not Given - Provider: Tawanna Estrella R.N. - Reason: See Provider Order) * 0900 (Not Given - Provider: Kayla Dmaon R.N. - Reason: See Provider Order) * 1719 (Unheld by provider - Provider: Discharge Provider, Automatic) Medication Order/ acetaminophen tablet 650 mg (TylenoL) 650 mg, oral, Every 6 hours PRN, mild pain or score 1-3 of 10, moderate pain or score 4-6 of 10, severe pain or score 7-10 of 10, fever, Starting on Tue12/07/24 at 0959 albuterol nebulizer solution 2.5 mg 2.5 mg, nebulization, Every 4 hours PRN, wheezing, shortness of breath, Starting on Tue12/07/24 [id number] * 1137 (Given - Provider: Tawanna Estrella RAnaN.) * 2144 (Given - Provider: Kenya Stallworth RAnaN.) * 1516 (Given - Provider: Vy Root RStlela.) benzonatate capsule 200 mg (Tessalon Perles) 200 mg, oral, 3 times daily PRN, cough, Starting on Lindsey 12/06/24 at 2129, Swallow whole. Do NOT crush, chew or open capsule. bisacodyL suppository 10 mg (Dulcolax) 10 mg, rectal, Daily PRN, constipation, Starting on Lindsey 12/06/24 at 2031, Ordered sequence of administration: polyethylene glycol, then bisacodyl until BM achieved. * 1114 (Return to Cabinet - Provider: Kayla Damon RShahnaz) sodium chloride 0.9 % injection 10 mL 10 mL, intravenous, As needed, line care, Starting on Lindsey 12/06/24 at 1259, Peripheral Intravenous Catheter and Rapid Infusion Catheter, prior to blood sampling, post blood transfusion or post blood sampling sodium chloride 0.9 % injection 3 mL 3 mL, intravenous, As needed, line care, Starting on Lindsey 12/06/24 at 1259, Prior to and following infusion and between multiple consecutive infusions: sodium chloride 0.9 % injection documented in this encounter Additional Health Concerns InfectionOnset DateLast IndicatedResolved [id number]/06/2024 7:24 PM CDTdocumented as of this encounter Care Teams Team MemberRelationshipSpecialtyStart DateEnd Date Elsewhere, Pcp PCP - GeneralFamily [id number]/3/1811documented as of this encounter
--- OUTSIDE RECORDS SUMMARY | 2024-12-21 17:22 | XMS_ITS | Encounter Summary ---
Author Organization [facility] Address [address] [place] [address] Care Team Providers Care Environmental Services Aide Name Role Phone Elsewhere, Pcp Primary Care Provider Unavailabl e Reason for Referral * Outpatient (Routine) - AuthorizedSpecialtyDiagnoses / ProceduresReferred By ContactReferred To ContactInternal Medicine / General Internal Medicine Iliana Vazquez P.A.-C. 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 [address] [place] [address] Phone: tel: fax: [facility] Referral IDStatusReasonStart DateExpiration DateVisits RequestedVisits [id number] STRIAL GAS PRODUCTION OPERATOR Reason for Visit * ReasonCommentsShortness of BreathRapid Heart Rate Encounter Details DateTypeDepartmentCare Team (Latest Contact Info)Bxodpjxvxtc33/07/2025 5:22 PM INDUSTRIAL GAS PRODUCTION OPERATOR - 12/27/2024 2:33 PM CSTHospital Encounter [facility], [facility], Fourth Floor [address] [place] [phone] Og Blanco D.O. [address] [place] [phone] Jeane Garcia M.B.B.S. [address] [place] [phone] Maryann Iglesias M.D., Ph.D. [address] [place] [phone] Ramón Torres M.D., M.S. 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) Discharge Disposition: [facility] Social History Tobacco UseTypesPacks/DayYears UsedDateSmoking Tobacco: CiristXjalmkfbsl163 02/15/1956 - 02/14/1966Smokeless Tobacco: FormerChewQuit: 02/14/1966Alcohol Use Standard Drinks/WeekCommentsNo0 (1 standard drink = 0.6 oz pure alcohol) Humiliation, Afraid, Rape, and Kick questionnaireAnswerDate RecordedWithin the last year, have you been afraid of your partner or ex-partner?No12/22/2024Within the last year, have you been humiliated or emotionally abused in other ways by your partner or ex-partner?No12/22/2024Within the last year, have you been kicked, hit, slapped, or otherwise physically hurt by your partner or ex-partner?No12/22/2024Within the last year, have you been raped or forced to have any kind of sexual activity by your partner or ex-partner?No12/22/2024 Hunger Vital SignAnswerDate RecordedWithin the past 12 months, you worried that your food would run out before you got the money to buymore.Never true12/22/2024 Within the past 12 months, the food you bought just didn't last and you didn't have money to get more.Never true12/22/2024PRAPARE - TransportationAnswerDate RecordedIn the past 12 months, has lack of transportation kept you from medical appointments or from getting medications?No12/22/2024In the past 12 months, has lack of transportation kept you from meetings, work, or from getting things needed for daily living?No12/22/2024HC UtilitiesAnswerDate RecordedIn the past 12 months has the [place], gas, oil, or water [employer] threatened to shut off services in your home?No12/22/2024Housing StabilityAnswerDate RecordedWhat is your living situation today?I have a steady place to live12/22/2024Education AnswerDate RecordedWhat is the highest level of school you have completed or the highest degree you have received?GED or jejzrokobz21/05/2020Sex and Gender InformationValueDate RecordedSex Assigned at XhxxtNsmy74/05/2018 9:08 AM CDT Legal UblZxsu6703/18/2016 7:31 AM CSTGender MaxmcmuyCixw28/05/2018 9:08 AM CDT Sexual HogmvudqtspWhqobpqh72/05/2018 9:08 AM CDTOccupationIndustryJob Start DateJob End DateRetiredNot on fileNot on fileNot on filedocumented as of this encounter Last Filed Vital Signs Vital SignReadingTime TakenCommentsBlood Kyfeqhnc398/5711/ 7:58 AM INDUSTRIAL GAS PRODUCTION OPERATOR Lblzd7139 7:58 AM XXLJpwmqgzgtki25.8 ??C (98.2 ??F)12/27/2024 7:58 AM CSTRespiratory Csur042502/27/2024 7:58 AM CSTOxygen Qaluxtxgjm10%12/27/2024 2:11 PM CSTInhaled Oxygen Concentration--Gmswcv78 kg (191 lb 12.8 oz)12/22/2024 5:00 AM HKMOugyyl543.6 cm (5' 5.98)12/23/2024 2:55 PM CSTBody Mass Index30.97 12/22/2024 5:00 AM CSTdocumented in this encounter Discharge Summaries * Iliana Vazquez P.A.-C. - 12/27/2024 11:41 AM CST DISCHARGE SUMMARY BRIEF OVERVIEW Discharge Hospital: [facility] Discharge Provider: Ramón Torres M.D., M.S. Discharge Provider Team: [facility] Internal Medicine ([facility] - [facility] Medicine 5 ([facility]) Primary Care Providers: Elsewhere, Pcp (General) No address on file PCP Phone Number: None PCP Fax Number: None Admission Date: 12/21/2024 Discharge Date: 12/27/24 PRINCIPAL DIAGNOSIS Shortness Of Breath SECONDARY DIAGNOSES Principal Problem: Shortness Of Breath Active Problems: Evaluation Manager (Current) Anticoagulant Treatment Atrial Fibrillation Paroxysmal (HCC) Apnea Sleep Obstructive Hyperlipidemia Gastroesophageal Reflux Disease NOS Pacemaker Cardiac Status Post Block Heart Insufficiency 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 * DISCHARGE DISPOSITION [facility] [4] ACTIVE ISSUES REQUIRING FOLLOW UP Patient seen by Pulmonary Medicine service this admission. Recommend increasing prednisone to 30 mgx 7 days (through 12/22-12/29/2024) and then decreasing to 20 mg daily thereafter until outpatient Pulmonary Medicine follow-up, which is arranged for 01/04/2025. Continue PJP prophylaxis with Bactrim and GI prophylaxis with PPI while on high dose steroids. Continue torsemide 60 mg daily on discharge until PCP follow-up. Decrease potassium to 20 mEq daily until PCP follow-up. Repeat BMP to monitor creatinine and potassium in the next 5-7 days. Continue intermittent monitoring while on bactrim given concurrent torsemide and potassium supplements. Defer to PCP on further management. Pulmonary Rehab referral placed on discharge. Of note, given his chronic lung disease, his goal oxygen saturation is 88-92%. OUTPATIENT FOLLOW UP Scheduled Appointments 01/04/2025 7:[address] [facility] Radiology 01/04/2025 8:30 AM PFT LAB 01 [facility] 18E PUL Pulmonary Medicine 01/04/2025 12:30 PM Blanco Spivey M.D. Pulmonary Medicine 01/04/2025 1:00 PM PUL RT 01 ROGO Pulmonary Medicine 02/11/2025 10:15 AM RST PUL SLM INTAKE VISIT Admitting/Central Scheduling 02/12/2025 11:15 AM DX ROCH 02 RM 208 CHEST Radiology 02/12/2025 11:50 AM LAB BLOOD [facility] CL C Laboratory Medicine 02/12/2025 1:30 PM Lilli Moore M.D. Pulmonary Medicine For appointment details refer to your Patient Appointment Guide. TEST RESULTS PENDING AT DISCHARGE Pending Labs None DETAILS OF HOSPITAL STAY REASON FOR ADMISSION Shortness Of Breath HOSPITAL COURSE Marcos Perez is an 89-year-old male with a history of interstitial lung disease, heart failurewith preserved ejection fraction, eosinophilic asthma, atrial fibrillation on anticoagulation, obstructive sleep apnea, chronic kidney disease, and prior complete heart block with pacemaker, who was admitted for evaluation of worsening shortness of breath and hypoxia. His baseline oxygen requirement prior to this illness was 2 L with CPAP at night and with activity, but none at rest. On admission, he reported a week of progressive dyspnea, labile heart rates, and new continuous oxygen needs, temporally associated with a reduction in his prednisone dose as part of a prolonged steroid taper for interstitial lung disease. Initial evaluation included chest CT angiogram, which was negative for pulmonary embolism and focal pneumonia, and chest radiographs showing reticulations compatible with interstitial fibrosis and mild patchy opacities. Laboratory studies revealed compensatedrespiratory acidosis, mild leukocytosis, and acute kidney injury with creatinine peaking at 1.44, likely related to IV contrast administration for imaging. Pacemaker interrogation and transthoracic echocardiogram were unremarkable, with preserved left ventricular ejection fraction and mildly enlarged right ventricle. Pulmonary Medicine was consulted and recommended a slower prednisone taper, increasing the dose to 30 mg daily for 7 days before resuming the planned reduction to 20 mg daily, given the correlation of symptom exacerbation with steroid dose reduction and absence of infectious or cardiac etiology. He continued PJP prophylaxis with Bactrim and GI prophylaxis with pantoprazole. His home bronchodilators and asthma therapies were maintained, and ambulatory pulse oximetry was planned prior to discharge. Physical and occupational therapy assessments found him to be functioning close to baseline with modified independence in mobility and ADLs, and no further skilled inpatient therapy was recommended. During the admission, his acute kidney injury improved with IV fluids and renally dosed medications. His torsemide dose was increased in the context of heart failure and renal function monitoring, later resumed home dose. Slight increase in creatinine noted this admission and remained stable, likely in the context of ongoing Bactrim for PJP prophylaxis with continued steroids. He remained on therapeutic anticoagulation for atrial fibrillation. No evidence of heart failure exacerbation, arrhythmia, or infection was found. Homegoing oxygen studies with RT revealed no oxygen requirement arrest with 1 L supplemental oxygen with activity. Other chronic issues addressed included obstructive sleep apnea, hyperlipidemia, gastroesophageal reflux disease, depression, prolonged QT interval, and nonobstructive coronary artery disease. His prior adrenal insufficiency and discontinued hydrocortisone were noted as relevant to steroid tapering, with further management deferred to the outpatient setting. He was deemed safe to return to his assisted living facility with support from family and staff, and durable medical equipment needs were coordinated prior to discharge. He remained hemodynamically stable and afebrile and was appropriate for discharge back to his assisted living facility on 12/27/2024. MEDICATIONS CHANGED DURING THIS HOSPITAL STAY Medications stopped: None Medications changed: Prednisone, potassium chloride, torsemide Medications added: None CONSULTS ORDERED DURING THIS ADMISSION IP CONSULT TO CARE MANAGEMENT IP CONSULT TO CARE MANAGEMENT IP CONSULT TO PULMONARY MEDICINE IP CONSULT TO CARE MANAGEMENT CONDITION AT DISCHARGE Stable The above plan of care was discussed with Ramón Torres M.D., M.S., HIM senior consumer insights consultant. I saw and evaluated Marcos Perez today and provided counseling kzjo-wm-uyof at bedside. I personally spent a total of greater than 30 minutes in counseling and coordination of care as described above to facilitate the hospital discharge. Discharge instructions were provided to the patient and caregiver(s). STRIAL GAS PRODUCTION OPERATOR documented in this encounter Discharge Instructions * Discharge Instructions* Dave Lundberg - 12/24/2024 7:11 AM INDUSTRIAL GAS PRODUCTION OPERATOR You were discharged from the [facility] Medicine 5 ([facility]) Service. Please identify this service name if youcall with questions after hospitalization. 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 For 10 days12/19/2024 omeprazole (PriLOSEC) [address] capsule Take 20 mg by mouth every morning before breakfast.12/04/2021 potassium chloride (K-Tab) 20 mEq ER tablet Take 1 tablet (20 mEq total) by mouth daily with morning meal. 30 tablet 12/27/2024 rivaroxaban (Xarelto) 15 mg tablet Take 1 tablet (15 mg total) by mouth daily with evening meal. 30 tablet 12/10/2024 sennosides (senna) 8.6 mg tablet Take 8.6 mg by mouth at bedtime as needed for constipation. sertraline (ZOLOFT) 50 mg tablet Take 50 mg by mouth daily.12/04/2021 predniSONE (Deltasone) 20 mg tablet Take 1.5 tablets (30 mg total) by mouth daily for 2 days, THEN 1 tablet (20 mg total) daily for 21 days. sulfamethoxazole-trimethoprim (Bactrim) 400-80 mg per tablet Indications:Prophylaxis, medicalTake 1 tablet by mouth daily Indications: Prophylaxis, medical. 30 tablet / torsemide 60 mg tablet Take 60 mg by mouth daily. 60 tablet /documented as of this encounter Progress Notes * Christa Ojeda R.N. - 12/27/2024 9:51 AM CST SUBJECTIVE Discharge transportation. OBJECTIVE Anticipated Needs Anticipated Needs Functional Status: None Assistive Devices: None Anticipated Modifications to the Patient's Home: None Transportation Needs: Support from family Does the patient need discharge transport arranged?: No Phone Number for Ride/Caregiver: family member Anticipated Discharge Destination: [facility] Facility ASSESSMENT / PLAN Assessment CM spoke to resident daughter to clarify worm picker time today, daughter states 2pm is the plan and she will have Cecil's home oxygen tank with her. Daughter asks that provider call her to clarify oxygen parameters and to touch base before Cecil is discharged. Plan Destination: Assisted Living Facility: [facility] Contact: Nursing Patient was receiving the following care: Assist with bathing, med management, meals, and housekeeping. Patient cannot return on weekend. Patient needs to be back by 5pm . Additional equipment needed for return: patient has own O2 supply, fam to bring Patient cannot return if cares exceed facilities abilities. COVID screening needed before patient can return: [...] - Provide written prescriptions for all narcotics. Research Editor : -Reviewed patient's insurance coverage for the services noted above. The patient and daughter Zoraida appear(s) to have an understanding of this. -Will continue to follow and assist if needs arise. Will update when known. 1. Oxygen reconnect noted below. Durable Medical Equipment - Admitted Since 12/21/2024 Service Provider Services Address Phone Fax Patient Preferred [facility] Durable Medical Equipment [address], [place] [address] -- Contact: Intake Respiratory Equipment : Portable concentrator, 5 L concentrator, and back up tank Oxygen provider reports patient???s current orders are for 1 liter with activity. NURSING: - Arrange transportation oxygen tank if needed. - If new oxygen requirements are needed, assist primary service with new prescription and fax to provider. PRIMARY SERVICE: - Complete and sign new oxygen prescription if needed. Research Editor : -Reviewed patient's insurance coverage for the services noted above. The patient appear(s) to have an understanding of this. -Will continue to follow and assist if needs arise. Christa Ojeda R.N. 12/27/2024 STRIAL GAS PRODUCTION OPERATOR * Neil Borrero C.R.T., L.R.T. - 12/27/2024 2:15 AM CST 12/26/24 8820 BPAP/CPAP Therapy BPAP/CPAP Interface Full face mask BPAP/CPAP Interface Size Medium Patient's Own Equipment Mask;Tubing;CPAP;Equipment inspected (per site policy) Skin barrier Refused $BPAP/CPAP Yes Ventilator Parameters Ventilator Parameters (Select Groups) BPAP/CPAP Rows BPAP/CPAP Mode Per Home Settings;CPAP NPPV EPAP (CPAP) Setting 15 cm H2O Humidification Heated humidifier Patient placed on above settings. Electronically signed by: Neil Borrero C.R.T., L.R.T. 12/27/24 2:16 AM INDUSTRIAL GAS PRODUCTION OPERATOR STRIAL GAS PRODUCTION OPERATOR * Christa Ojeda R.N. - 12/26/2024 11:31 AM CST SUBJECTIVE Reconnect to facility, patient is medically ready. OBJECTIVE Anticipated Needs Anticipated Needs Functional Status: None Assistive Devices: None Anticipated Modifications to the Patient's Home: None Transportation Needs: Support from family Does the patient need discharge transport arranged?: No Phone Number for Ride/Caregiver: family member Anticipated Discharge Destination: [facility] Facility Patient and family are aware of the information below and verbalize understanding. ASSESSMENT / PLAN Assessment CM received return call from Dale Vigil, , [facility] for the [facility] regarding concern that facility will not accept patient back for readmission. Dale asked for patient name, phone number, facility staff name and number who spoke to CM yesterday, and the name and phone number for patient family, Naa. Dale requested a review of what the concern was and states he will call the patient to ensure it is his wish to return to that facility and will update CM with hisfindings. CM spoke to Cecil who reports he spoke to Dale and verified it is his wish to return to [facility] as that is his home. Cecil also states he is not aware why they are concerned with him returning and CM informed him that his daughter is aware of some of the specifics and she plans to request aformal meeting to discuss more. CM called daughter, Naa, and informs her of the above, she states she has not spoken with facility today and may ask her brother, Jose, to make that call. She verifies that discharge today or tomorrow would not be a problem for family to transport back to facility. CM left a VM with Dale Chen requesting call back with any directives or information from hisend. CM left a VM with KENZIE Earl at [facility] requesting a return call to discuss Cecil's discharge. Mady returned call and requests PT/OT notes be sent to her to review and states she will call Naa to clarify expectations of what the facility can and cannot offer Cecil. Mady says she will call CM back in 1 hour with answer of whether Cecil will be admitted back to [facility]. Notes were faxed as requested. Addendum: CM spoke with KENZIE Earl who states they are willing to take Cecil back. Mady states family preference is to transport Cecil tomorrow vs today. CM asked if he were able to return today what time would he need to be there, Mady states 5pm because the nurse leaves at 7pm. CM called daughter to clarify plan for discharge who states she would have Cecil come back today but she couldn't get everything done and have him at facility by 3:30pm. KAMI clarified Mady's directive asnoted above and Zoraida then states she would like to call her brother and plan for discharge today, saying she will call back with final determination. Addendum: CM spoke to Dale Chen, who says KENZIE Earl at [facility], informed him that the concern with Cecil's return to the faciity was related to PT notes that indicated patient would need SBA with all cares and that they would not be able to accommodate that situation. CM informs Dale that there is no note that is indicative of that in our EHR and that I would call Mady to further discuss. Dale agrees and says he will await return call with update. CM called KENZIE Earl, and reviewed patient PT notes over speaker phone with KAREN Stock present as well, which Mady agreed to. Mady stated she did not tell Dale that patient was SBA for all cares and that was likely a misunderstanding. CM's used the PT/OT notes and clarified that PT/OT did sign off on 12/23 indicating patient was back at baseline and they had signed off. Mady acknowledged the notes referenced and says there must have been a misunderstanding with the nurse who spoke with Fabienne yesterday, Plan now updated that patient will return to facility tomorrow with family transport and own oxygentank. Family will call nursing unit in AM to update on time they can transport. Plan Destination: Assisted Living Facility: [facility] Contact: Nursing Patient was receiving the following care: Assist with bathing, med management, meals, and housekeeping. Patient cannot return on weekend. Patient needs to be back by 5pm . Additional equipment needed for return: patient has own O2 supply, fam to bring Patient cannot return if cares exceed facilities abilities. COVID screening needed before patient can return: [...] - Provide written prescriptions for all narcotics. Research Editor : -Reviewed patient's insurance coverage for the services noted above. The patient and daughter Zoraida appear(s) to have an understanding of this. -Will continue to follow and assist if needs arise. Will update when known. Durable Medical Equipment - Admitted Since 12/21/2024 Service Provider Services Address Phone Fax Patient Preferred [facility] Durable Medical Equipment [address] [place] [address] -- Contact: Intake Respiratory Equipment : Portable concentrator, 5 L concentrator, and back up tank Oxygen provider reports patient???s current orders are for 1 liter with activity. NURSING: - Arrange transportation oxygen tank if needed. - If new oxygen requirements are needed, assist primary service with new prescription and fax to provider. PRIMARY SERVICE: - Complete and sign new oxygen prescription if needed. Research Editor : -Reviewed patient's insurance coverage for the services noted above. The patient appear(s) to have an understanding of this. -Will continue to follow and assist if needs arise. Christa Ojeda R.N. 12/26/2024 STRIAL GAS PRODUCTION OPERATOR STRIAL GAS PRODUCTION OPERATOR STRIAL GAS PRODUCTION OPERATOR * Krista Soler D.T.R. - 12/26/2024 10:54 AM CST Patient was assessed and determined to be nutritionally stable. Clinical nutrition will sign off but will continue to screen per departmental guidelines. Please reconsult for any questions/concerns regarding patient's nutritional status. Percentage of Meals Eaten for the past 72 hrs: Percent Meals Eaten (%) 12/25/24 1813 100 12/25/24 1347 100 12/25/24 1000 100 12/24/24 1933 100 12/24/24 1443 100 12/23/24 2000 100 12/23/24 1251 100 Wt Readings from Last 6 Encounters: 12/22/24 87 kg 12/09/24 84.9 kg 11/20/24 87.3 kg 11/11/24 84.6 kg 06/29/24 87.4 kg 10/10/23 76.7 kg For questions about patient's nutritional care please contact pager [phone] on weekdays or [phone] on weekends/holidays. STRIAL GAS PRODUCTION OPERATOR * Iliana Vazquez P.A.-C. - 12/26/2024 8:09 AM CST [place] [id number] ([facility]) Progress Note SUBJECTIVE Mr. Perez is seen on morning rounds.He is sitting upright in his recliner and eating breakfast independently. Endorses some cramping in his hands yesterday but this has since improved. Otherwise denies any new symptoms or concerns I have reviewed the current medication list. OBJECTIVE VITAL SIGNS Temperature: [36.2 ??C-36.5 ??C] 36.5 ??C Heart Rate: [81] 81 Resp Rate: [18-24] 18 Blood Pressure: (117-134)/(53-81) 129/69 SpO2: [91 %-99 %] 96 % Flow Rate (L/min): [1 L/min-2 L/min] 1 L/min Pulse Rate: [75-118] 81 PHYSICAL EXAMINATION General: Awake and alert in no apparent distress. Pleasant and conversational. Skin: No new rashes or lesions on exposed skin. Respiratory: Breathing comfortably on room air. No use of accessory muscles. Neuro: Alert and oriented. No focal deficits appreciated. Eating independently. Psych: Answers questions appropriately. Good eye contact. DIAGNOSTICS I have independently reviewed vitals, I&Os, labs, imaging, notes via EMR. ASSESSMENT / PLAN Mr. Perez is hospitalized on [place] [id number] ([facility]) for evaluation and management of Shortness Of Breath. Marcos Perez is a 89 y.o. male whose medical comorbidities include atrial fibrillation onXarelto, obstructive sleep apnea, eosinophilic asthma, hyperlipidemia, gastroesophageal [...] resides at an assisted living facility in [place]. He required 3 hospitalizations since the end of October. Most recently was admitted to the Pulmonary Medicine Service and discharged on 12/10 with treatment recommendations for interstitial lung disease on a prolonged steroid taper needing PJP prophylaxis. Patient discharged on prednisone 60 mg daily for an additional 3 days (to complete 7 days total), followed by 40 mg daily x7 days, followed by 20 mg daily for 7 days. His 1st day taking 20 mg of prednisone daily was 12/21/2024, the day of admission. He notes that symptoms worsened significantly on that day, prompting ED presentation and subsequent admission. On ED evaluation, he was requiring 2 L NC with rest with O2 SATS dropping into the mid 80s with activity. Workup was negative for PE or evidence of focal pneumonia. Cardiac workup with no evidence ofischemic changes. He was admitted for further management. 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 Continue PJP prophylaxis with Bactrim and GI prophylaxis with pantoprazole Continue: Budesonide nebulization, Dupixent, scheduled Lay Vanessa Continue CPAP with 2 L bleed in during sleep RT performed homegoing O2 studies, and he qualified for 1 L with activity. 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 Continue: Rivaroxaban, torsemide dose increased to 80 mg daily, will hold given uptrending creatinine as below # Failure Renal Acute (Acute Kidney Injury) Mild DENITA felt to be related to contrast nephropathy and prerenal etiology. Creatinine improved to 1.30 on 12/24 following increase in torsemide dose but later increased to 1.69 on 12/25. Likely overdiuresed in the context of increased torsemide dose. Will hold and continue to monitor. # Insufficiency Adrenal Primary (HCC) Patient previously on oral hydrocortisone which appears to been discontinued sometime in 2019. Thismay have some impact on ability to fully wean off of prednisone. Will defer to outpatient setting. # Gastroesophageal Reflux Disease NOS Continue pantoprazole Diet: Adult Diet Regular Tubes/lines: Lines, Drains, and Airways Peripheral IV Duration Peripheral IV 12/22/24 20 G Right Antecubital 4d 7h VTE prophylaxis: therapeutic anticoagulation Current Activity/Mobility: BMAT Level 4 (Able to stand and walk; needs staff assist if fall risk factors identified) Fall Injury Prevention: I have discussed My Plan for Safe Activity with the patient. Disposition: Uncertain, initially planning for discharge back to [facility] this morning, however, informed that they may be unable to take patient back due to concern for increase in care needs. Stable to discharge criteria (not yet met): Vital signs, Functional status, and Acute care monitoring needs The above plan of care was discussed with Ramón Torres M.D., M.S., HIM senior consumer insights consultant. I personally spent a total of 35 minutes providing and coordinating care today. STRIAL GAS PRODUCTION OPERATOR * Kellie Guardado R.R.T., L.R.T. - 12/25/2024 10:26 PM CST 12/25/24 2200 BPAP/CPAP Therapy BPAP/CPAP Interface Full face mask Patient's Own Equipment Mask;Tubing;CPAP;Equipment inspected (per site policy) Skin barrier Refused Ventilator Parameters BPAP/CPAP Mode Per Home Settings O2 Flow Rate 2 L/min NPPV EPAP (CPAP) Setting (auto 4-15) Humidification Heated humidifier Pt placed on CPAP for the night on the above settings. Pt is resting comfortably in bed. Device is appropriately on, plugged into red outlet, has water in humidity chamber and has an appropriate leak. Please contact RT if any questions. Electronically signed by: Kellie Guardado R.R.T., DoriRAnaT. 12/25/24 10:26 PM INDUSTRIAL GAS PRODUCTION OPERATOR STRIAL GAS PRODUCTION OPERATOR * Art Chen R.R.T., Gem.R.T. - 12/25/2024 2:41 PM CST 12/25/24 1427 Home Oxygen Assessment Rest/Awake Room Air SpO2 93 Percent Exercise/Activity Room Air SpO2 87 Percent Exercise/Activity with Oxygen SpO2 91 Percent (1l nc) DME performed. At rest pt required no oxygen. With activity, pt required 1L oxygen Electronically signed by: Art Chen R.R.T., L.RShaila 12/25/24 2:41 PM INDUSTRIAL GAS PRODUCTION OPERATOR STRIAL GAS PRODUCTION OPERATOR STRIAL GAS PRODUCTION OPERATOR * Iliana Vazquez P.A.-C. - 12/25/2024 2:27 PM CST [facility] ([facility]) Progress Note SUBJECTIVE Mr. Perez is seen on morning rounds. Denies any new symptoms or concerns this morning. I have reviewed the current medication list. OBJECTIVE VITAL SIGNS Temperature: [36.3 ??C-36.5 ??C] 36.4 ??C Heart Rate: [100] 100 Resp Rate: [16-24] 24 Blood Pressure: (110-154)/(59-79) 134/71 SpO2: [91 %-100 %] 93 % Flow Rate (L/min): [2 L/min] 2 L/min Pulse Rate: [78-101] 96 PHYSICAL EXAMINATION General: Awake and alert in no apparent distress. Skin: No new rashes or lesions. Respiratory: Breathing comfortably on room air. No use of accessory muscles. Neuro: Alert and oriented. No focal deficits appreciated. Psych: Answers questions appropriately. Good eye contact. DIAGNOSTICS I have independently reviewed vitals, I&Os, labs, imaging, notes via EMR. ASSESSMENT / PLAN Mr. Perez is hospitalized on [facility] ([facility]) for evaluation and management of Shortness Of Breath. Marcos ePrez is a 89 y.o. male whose medical comorbidities include atrial fibrillation onXarelto, obstructive sleep apnea, eosinophilic asthma, hyperlipidemia, gastroesophageal [...] resides at an assisted living facility in [place]. He required 3 hospitalizations since the end of October. Most recently was admitted to the Pulmonary Medicine Service and discharged on 12/10 with treatment recommendations for interstitial lung disease on a prolonged steroid taper needing PJP prophylaxis. Patient discharged on prednisone 60 mg daily for an additional 3 days (to complete 7 days total), followed by 40 mg daily x7 days, followed by 20 mg daily for 7 days. His 1st day taking 20 mg of prednisone daily was 12/21/2024, the day of admission. He notes that symptoms worsened significantly on that day. 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 Symptoms correlate with decrease in prednisone dose. Thus far, work up negative for infectious cause. Plan: -- Patient seen by Pulmonary service. Appreciate assistance. They recommended increasing prednisoneto 30 mg x 7 days and then decreasing to 20 mg daily. Risk of steroid myopathy explained to patientand he understands. -- continue PJP prophylaxis with Bactrim and GI prophylaxis with pantoprazole -- continue: Budesonide nebulization, Dupixent, scheduled DuoNebs, Singulair -- continue CPAP with 2 L bleed in during sleep -- plan for ambulatory pulse ox testing prior to discharge. 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 # Failure Renal Acute (Acute Kidney Injury) -- very mild acute kidney injury is likely related to contrast nephropathy. Some improvement with IV fluid yesterday. -- resolved as of 12/24, will repeat renal function panel with AM labs. # Insufficiency Adrenal Primary (HCC) -- patient previously on oral hydrocortisone which appears to been discontinued sometime in 2018. This may have some impact on ability to fully wean off of prednisone. Will defer to outpatient setting. # Gastroesophageal Reflux Disease NOS -- continue pantoprazole Diet: Adult Diet Regular Tubes/lines: Lines, Drains, and Airways Peripheral IV Duration Peripheral IV 12/22/24 20 G Right Antecubital 3d 18h Wound Duration Wound 12/07/24 Pressure Injury Stage 1 Not applicable Coccyx Redness 17d 23h VTE prophylaxis: therapeutic anticoagulation Current Activity/Mobility: BMAT Level 4 (Able to stand and walk; needs staff assist if fall risk factors identified) Fall Injury Prevention: I have discussed My Plan for Safe Activity with the patient. Disposition: Uncertain, initially planning for discharge back to [facility] this morning, however, informed that they may be unable to take patient back due to concern for increase in care needs. Stable to discharge criteria (not yet met): Vital signs, Functional status, and Acute care monitoring needs The above plan of care was discussed with Ramón Torres M.D., M.S., HIM senior consumer insights consultant. I personally spent a total of 35 minutes providing and coordinating care today. STRIAL GAS PRODUCTION OPERATOR * Christa Ojeda R.N. - 12/25/2024 2:25 PM CST SUBJECTIVE JUSTINE and oxygen reconnect. OBJECTIVE Anticipated Needs Anticipated Needs Functional Status: None Assistive Devices: None Anticipated Modifications to the Patient's Home: None Transportation Needs: Support from family Does the patient need discharge transport arranged?: No Phone Number for Ride/Caregiver: family member Anticipated Discharge Destination: [facility] Facility ASSESSMENT / PLAN Assessment CM spoke to [facility] staff Fabienne at [phone] to determine reconnect status as Cecil is medically ready to be discharged. Fabienne states that due to Cecil being admitted to the hospital 4 times in the past 3 months that they had concerns with taking him back to their facility at this time. KAMI discussed that therapy notes reflect Cecil is back at his baseline.Fabienne states the DON fe els he would do better in a SNF, CM explained that Cecil does not currently qualify for a SNF but is medically ready to return home. Fabienne states we cannot take care of him if he needs to keep goingto the hospital and says they did talk to family on Tuesday about their concerns. She also states If we take him back this time we won't be taking him back again when it happens. KAMI asked if familyis aware of that plan and Fabienne checks chart notes saying they did but it doesn't look like it was charted. Fabienne states that because patient requires SBA with gait belt, that they are unable to meet his needs. CM questioned what his baseline was, Fabienne states they did do SBA for his morning cares, but were not able to assist with evening cares. At this time, the facility is refusing to take Cecil back, [facility] CM spoke to Cecil's daughter, Zoraida, who voices frustration saying that when she left the facility Tuesday with Cecil that staff stated We can't wait to get him back, we love your dad!. Zoarida states that she called the facility Tuesday to inform them that the provider said dad doesn't qualify for SNF and will be coming home, with no response from facility staff suggesting he couldn't return there when discharged. Zoraida states she has a small concentrator in her car for transport when the time does come to transport Cecil. Plan 1. Continue to work with facility and family to support residents return to his home where his spouse also lives. 2. Await return call from [facility] for any necessary directives or follow up. 3. Oxygen reconnect noted below. Durable Medical Equipment - Admitted Since 12/21/2024 Service Provider Services Address Phone Fax Patient Preferred [facility] Durable Medical Equipment [address], [place] [address] -- Contact: Intake Respiratory Equipment : Portable concentrator, 5 L concentrator, and back up tank Oxygen provider reports patient???s current orders are for 1 liter with activity. NURSING: - Arrange transportation oxygen tank if needed. - If new oxygen requirements are needed, assist primary service with new prescription and fax to provider. PRIMARY SERVICE: - Complete and sign new oxygen prescription if needed. Research Editor : -Reviewed patient's insurance coverage for the services noted above. The patient appear(s) to have an understanding of this. -Will continue to follow and assist if needs arise. Christa Ojeda R.N. 12/25/2024 STRIAL GAS PRODUCTION OPERATOR * Herman Matamoros R.R.T., L.R.T. - 12/24/2024 11:13 PM CST 12/24/24 2300 BPAP/CPAP Therapy Patient's Own Equipment Mask;Tubing;CPAP;Equipment inspected (per site policy) Ventilator Parameters BPAP/CPAP Mode Per Home Settings O2 Flow Rate 2 L/min Patient placed on Home PAP w/O2 for the night on Home Settings, device was plugged into Red outlet,sterile water checked, and mepliex was declined by patient. Patient resting comfortably in bed withcall light in reach. No other respiratory concerns noted at this time. Patient wears O2 at home with device RT available if needed, please page RT floor number. Electronically signed by: Herman Matamoros R.R.T., L.R.T. 12/24/24 11:14 PM INDUSTRIAL GAS PRODUCTION OPERATOR STRIAL GAS PRODUCTION OPERATOR * Laxmi Parr R.R.T., L.R.T. - 12/24/2024 2:16 PM CST [facility] Chronic Pulmonary Disease Educator (RT) Initial Visit: Admission for Shortness Of Breath interstitial process, presumed to be related to asbestos exposure, as well as an eosinophilic asthma syndrome for which he is on dupilumab, Breo Ellipta Lab Results Component Value Date WBC 13.4 (H) 12/23/2024 HGB 12.2 (L) 12/23/2024 HCT 37.7 (L) 12/23/2024 MCV 86.1 12/23/2024 PLT 245 12/23/2024 Current home medications prior to admission: Ipratropium [place]/Albuterol Sulfate: DuoNeb PRN, LABA/ICS: Breo Ellipta , ICS: Budesonide 0.25 mgBID, as well as Singulair and Dupixent injection Patient education done with this visit: Noninvasive positive airway pressure and nebulizer supplies and the importance of cleaning of machine, supplies and masks Summary of COPD RT visit: patient has excellent inspiratory capacity and Ellipta inhaler technique,his is cleaning his supplies appropriately. Will continue to titrate O2 as needed. Productive cough. Laxmi Parr R.R.T., L.R.T. Pulmonary Disease Educator 12/24/24 2:16 PM INDUSTRIAL GAS PRODUCTION OPERATOR Pulmonary Disease Educators are available: Tuesday-Tuesday, 7:00 - 3:00 and as needed. Pager [phone] Pager [phone] STRIAL GAS PRODUCTION OPERATOR * Marietta Mar P.A.-C., P.A. - 12/24/2024 12:04 PM CST [facility] ([facility]) Progress Note SUBJECTIVE Marcos Perez was seen and examined on morning rounds. He feels well. Slept well. Breathing is at baseline. We discussed his care with daughter on the phone during interview. I have reviewed the current medication list. OBJECTIVE VITAL SIGNS Temperature: [36.3 ??C-36.4 ??C] 36.4 ??C Heart Rate: [91] 91 Resp Rate: [16-18] 16 Blood Pressure: (110-119)/(62-89) 119/65 SpO2: [91 %-98 %] 91 % Flow Rate (L/min): [2 L/min] 2 L/min Height: [167.6 cm] 167.6 cm BMI (Calculated): [31 kg/m??] 31 kg/m?? Pulse Rate: [90-95] 95 PHYSICAL EXAMINATION General: Alert and oriented and in no acute distress Skin: Warm, dry and without rash. ENT: mucous membranes are moist Cardiovascular: Regular rate and rhythm without murmur, gallop or rub. Trace pretibial edema over ankles/feet Pulmonary: very occasional fine crackle in right base Abdomen: Soft, nontender, nondistended. Positive bowel sounds. Musculoskeletal: moves all extremities Neuro: grossly intact, no focal deficit Psych: euthymic DIAGNOSTICS I have independently reviewed recent labs, radiographic studies and notes from recent admissions, pulmonary, physical therapy, infectious disease.. ASSESSMENT / PLAN Mr. Perez is hospitalized on [place] [address] ([facility]) for evaluation and management of Shortness Of Breath. Medical comorbidities include atrial fibrillation on Xarelto, obstructive sleep apnea, eosinophilicasthma, hyperlipidemia, gastroesophageal reflux disease, depression, prolonged QT [...] resides at an assisted living facility in [place]. He required 3 hospitalizations since the end of October. Most recently was admitted to the Pulmonary Medicine Service and discharged on 12/10 with treatment recommendations for interstitial lung disease on a prolonged steroid taper needing PJP prophylaxis. Patient discharged on prednisone 60 mg daily for an additional 3 days (to complete 7 days total), followed by 40 mg daily x7 days, followed by 20 mg daily for 7 days. His 1st day taking 20 mg of prednisone daily was 12/21/2024, the day of admission. He notes that symptoms worsened significantly on that day. 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 Symptoms correlate with decrease in prednisone dose. Thus far, work up negative for infectious cause. -- Patient seen by Pulmonary service. Appreciate assistance. They recommended increasing prednisoneto 30 mg x 7 days and then decreasing to 20 mg daily. Risk of steroid myopathy explained to patientand he understands. -- continue PJP prophylaxis with Bactrim and GI prophylaxis with pantoprazole -- continue: Budesonide nebulization, Dupixent, scheduled DuoNebs, Singulair -- continue CPAP with 2 L bleed in during sleep -- plan for ambulatory pulse ox testing prior to discharge. 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 # Failure Renal Acute (Acute Kidney Injury) -- very mild acute kidney injury is likely related to contrast nephropathy. Some improvement with IV fluid yesterday. -- resolved as of 12/24 # Insufficiency Adrenal Primary (HCC) -- patient previously on oral hydrocortisone which appears to been discontinued sometime in 2018. This may have some impact on ability to fully wean off of prednisone. Will defer to outpatient setting. # Gastroesophageal Reflux Disease NOS -- continue pantoprazole Diet: Adult Diet Regular Tubes/lines: PIV VTE prophylaxis: therapeutic anticoagulation Current Activity/Mobility: BMAT Level 4 (Able to stand and walk; needs staff assist if fall risk factors identified) Fall Injury Prevention: I have discussed My Plan for Safe Activity with the patient. Disposition: [facility] Stable to discharge criteria (not yet met): Vital signs, Functional status, and Acute care monitoring needs The patient was seen and evaluated with Dr. Iglesias, HIM senior consumer insights consultant. I personally spent a total of 50 minutes providing and coordinating care today. STRIAL GAS PRODUCTION OPERATOR * Delia Parr, PharmAnaD., R.Ph., BCPS - 12/24/2024 9:35 AM CST Pharmacist Progress Note Reason for admission: shortness of breath, hypoxia PMH: AF, HLD, DANAE, GERD, pacemaker, heart block, Asthma severe, depressive disorder, DENITA, NSTEMI 10/02, CHF (HFpEF), CAD OBJECTIVE Home medications: per provider Held: bisacodyl, supplements, Dupixent, Change: torsemide (increase) DVT Prophylaxis: therapeutic anticoagulation with rivaroxaban ASSESSMENT / PLAN SOB, asthma & ILD: steroid taper-on prednisone 30mg/day (D1 of 30 12/22), continue on SS bactrimfor PJP ppx Continues home budesonide, Breo, montelukast, Duonebs QID. DENITA: Scr trending up, 1.39>1.6> AM pending, Baseline Scr 1.1-1.3, Estimated Creatinine Clearance: 32.8 mL/min (A) (by C-G formula based on SCr of 1.61 mg/dL (H)). Torsemide dose increased from 60mg>80mg/KCL supplement continued (K 4.1 12/23 HFpEF, CAD, AF: continues home rivaroxaban 15mg/day, torsemide (see above) Delia Parr PharmSudhir., R.Ph., BCPS STRIAL GAS PRODUCTION OPERATOR * Marietta Martinez C.R.T., L.R.T. - 12/23/2024 4:15 PM CST 12/23/24 1455 Respiratory Assess and Treat Respiratory/Smoking History 0 Current Visit Surgery/Trauma 0 Chest Radiograph Imaging (within 72 hrs) 2 Work of Breathing 0 Level of Activity 1 Breath Sounds 0 Cough/Secretions 0 Respiratory Assessment Score 3 Reevaluate Patient Frequency Not Needed Patient is a 89 y.o. male Admitted on 12/21/2024 Principal Problem: Shortness Of Breath RRespiratory Assess and Treat: Respiratory Assessment Score: (P) 3 Reevaluate Patient Frequency: (P) Not Needed Bronchodilator Therapy: Clinical Indications for Bronchodilators: Home Neb/MDI, History of lung disease Home Medications Suitable for Current Condition?: Yes Bronchodilator Therapy Frequency : Every 4 hours Shift Summary: Plan of Care: Patient seen for Respiratory assess and treat, ordered by providing team. Patient is on 2 LPM for oxygen, Cough is strong productive at this time, Continue to encourage ambulation as tolerated, Please contact RT with any questions or concerns Oxygen Therapy: $Delivery Method: Room air Flow Rate (L/min): 2 L/min Recent ABG: No results for input(s): PO2 ART, PCO2 ART, PH ART, HCO3 ART, BASE EXC ART in the last 24hours. Smoking History: Tobacco Use History[1] Recent CPT: Marietta Martinez C.R.T., DoriRAnaT. 12/23/24 4:15 PM INDUSTRIAL GAS PRODUCTION OPERATOR [1] Social History Tobacco Use Smoking Status Former Current packs/day: 0.00 Average packs/day: 2.0 packs/day for 10.0 years (20.0 ttl pk-yrs) Types: Cigarettes Start date: 02/15/1956 Quit date: 02/14/1966 Years since quittin.8 Smokeless Tobacco Former Types: Chew Quit date: 02/14/1966 STRIAL GAS PRODUCTION OPERATOR * Marietta Mar P.A.-Joni., P.A. - 12/23/2024 7:22 AM CST T Medicine 5 ([facility]) Progress Note SUBJECTIVE Marcos Perez was seen and examined on morning rounds. He says he slept quite well and denies any change in breathing at rest. He did ambulate with PT on oxygen and felt somewhat breathless but pulse ox did not drop below 88%. I have reviewed the current medication list. OBJECTIVE VITAL SIGNS Temperature: [36.3 ??C-36.7 ??C] 36.3 ??C Resp Rate: [17-24] 18 Blood Pressure: (110-137)/(59-67) 115/59 SpO2: [93 %-97 %] 96 % Flow Rate (L/min): [2 L/min] 2 L/min Pulse Rate: [77-91] 77 PHYSICAL EXAMINATION General: Alert and oriented and in no acute distress Skin: Warm, dry and without rash. ENT: mucous membranes are moist Cardiovascular: Regular rate and rhythm without murmur, gallop or rub. Trace pretibial edema over ankles/feet Pulmonary: very occasional fine crackle in bases Abdomen: Soft, nontender, nondistended. Positive bowel sounds. Musculoskeletal: moves all extremities Neuro: grossly intact, no focal deficit Psych: euthymic DIAGNOSTICS I have independently reviewed recent labs, radiographic studies and notes from recent admissions, pulmonary, physical therapy, infectious disease.. ASSESSMENT / PLAN Mr. Perez is hospitalized on [place] [id number] ([facility]) for evaluation and management of Shortness Of Breath. Medical comorbidities include atrial fibrillation on Xarelto, obstructive sleep apnea, eosinophilicasthma, hyperlipidemia, gastroesophageal reflux disease, depression, prolonged QT [...] resides at an assisted living facility in [place]. He required 3 hospitalizations since the end of October. Most recently was admitted to the Pulmonary Medicine Service and discharged on 12/10 with treatment recommendations for interstitial lung disease on a prolonged steroid taper needing PJP prophylaxis. Patient discharged on prednisone 60 mg daily for an additional 3 days (to complete 7 days total), followed by 40 mg daily x7 days, followed by 20 mg daily for 7 days. His 1st day taking 20 mg of prednisone daily was 12/21/2024, the day of admission. He notes that symptoms worsened significantly on that day. 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 Symptoms correlate with decrease in prednisone dose. Thus far, work up negative for infectious cause. -- Patient seen by Pulmonary service. Appreciate assistance. They recommended increasing prednisoneto 30 mg x 7 days and then decreasing to 20 mg daily. Risk of steroid myopathy explained to patientand he understands. -- continue PJP prophylaxis with Bactrim and GI prophylaxis with pantoprazole -- continue: Budesonide nebulization, Dupixent, scheduled Lay Vanessa -- transthoracic echocardiogram unremarkable. -- continue CPAP with 2 L bleed in during sleep -- plan for ambulatory pulse ox testing prior to discharge. 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 Some improvement with IV fluid yesterday. We will continue to monitor. -- renally dose medications and avoid nephrotoxins (please note patient received IV contrast on theday of admission for CT angiogram). # Insufficiency Adrenal Primary (HCC) -- patient previously on oral hydrocortisone which appears to been discontinued sometime in 2019. This may have some impact on ability to fully wean off of prednisone. Will defer to outpatient setting. # Gastroesophageal Reflux Disease NOS -- continue pantoprazole Diet: Adult Diet Regular Tubes/lines: PIV VTE prophylaxis: therapeutic anticoagulation Current Activity/Mobility: BMAT Level 4 (Able to stand and walk; needs staff assist if fall risk factors identified) Fall Injury Prevention: I have discussed My Plan for Safe Activity with the patient. Disposition: [facility] Stable to discharge criteria (not yet met): Vital signs, Functional status, and Acute care monitoring needs The patient was seen and evaluated with Dr. Iglesias, HIM senior consumer insights consultant. I personally spent a total of 50 minutes providing and coordinating care today. STRIAL GAS PRODUCTION OPERATOR * Marietta Mar P.A.-C., P.A. - 12/22/2024 3:29 PM CST [facility] 5 ([facility]) Progress Note SUBJECTIVE Marcos Perez was seen and examined on morning rounds. He was comfortable on a CPAP and removed it to speak with rounding team. He reports increasing dyspnea with exertion only over the lastweek. This happens to correlate temporally with decreasing prednisone from 60 mg daily to 40 mg daily. He also reports 1 episode of heart rate elevating to 104 and later dropping to 50 with the associated shortness a breath while at rest. His daughter was present when this happened and notes that pulse was checked on a pulse oximeter. He denies any recent sputum production and generally does not feel short of breath at rest. His daughter reports that needing to use oxygen continuously is new and very concerning to her. I have reviewed the current medication list. OBJECTIVE VITAL SIGNS Temperature: [36.3 ??C-36.6 ??C] 36.4 ??C Resp Rate: [16-20] 18 Blood Pressure: (110-139)/(55-95) 137/62 SpO2: [92 %-98 %] 95 % Flow Rate (L/min): [2 L/min] 2 L/min Height: [167.6 cm] 167.6 cm Weight: [87 kg] 87 kg BSA (Calculated - sq m): [2.01 sq meters] 2.01 sq meters BMI (Calculated): [31 kg/m??] 31 kg/m?? Pulse Rate: [68-91] 90 PHYSICAL EXAMINATION General: Alert and oriented and in no acute distress Skin: Warm, dry and without rash. ENT: mucous membranes are moist Cardiovascular: Regular rate and rhythm without murmur, gallop or rub. Trace pretibial edema over ankles/feet Pulmonary: very occasional fine crackle in bases Abdomen: Soft, nontender, nondistended. Positive bowel sounds. Musculoskeletal: moves all extremities Neuro: grossly intact, no focal deficit Psych: euthymic DIAGNOSTICS I have independently reviewed recent labs, radiographic studies and notes from recent admissions, pulmonary, physical therapy, infectious disease.. ASSESSMENT / PLAN Mr. Perez is hospitalized on [place] [id number] ([facility]) for evaluation and management of Shortness Of Breath. Medical comorbidities include atrial fibrillation on Xarelto, obstructive sleep apnea, eosinophilicasthma, hyperlipidemia, gastroesophageal reflux disease, depression, prolonged QT [...] resides at an assisted living facility in [place]. He required 3 hospitalizations since the end of October. Most recently was admitted to the Pulmonary Medicine Service and discharged on 12/10 with treatment recommendations for interstitial lung disease on a prolonged steroid taper needing PJP prophylaxis. Patient discharged on prednisone 60 mg daily for an additional 3 days (to complete 7 days total), followed by 40 mg daily x7 days, followed by 20 mg daily for 7 days. His 1st day taking 20 mg of prednisone daily was 12/21/2024, the day of admission. He notes that symptoms worsened significantly on that day. 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 Symptoms correlate with decrease in prednisone dose. Thus far, work up negative for infectious cause. -- Patient seen by Pulmonary service. Appreciate assistance. They recommended increasing prednisoneto 30 mg x 7 days and then decreasing to 20 mg daily. Risk of steroid myopathy explained to patientand he understands. -- continue PJP prophylaxis with Bactrim and GI prophylaxis with pantoprazole -- continue: Budesonide nebulization, Dupixent, scheduled Lay Vanessa -- transthoracic echocardiogram unremarkable. -- continue CPAP with 2 L bleed in during sleep -- plan for ambulatory pulse ox testing prior to discharge. -- has outpatient follow-up with Pulmonary Service already scheduled with CT on 01/04/25 # Chronic Diastolic (Congestive) Heart Failure (HCC) # Evaluation Manager (Current) Anticoagulant Treatment # Atrial Fibrillation Paroxysmal (HCC) # Block Heart S/P AV Node Ablation # Pacemaker Cardiac Status Post # Hyperlipidemia # Prolonged QT Interval # Atherosclerotic Heart Disease Of [place] Coronary Artery Without Angina Pectoris (angiogram with nonobstructive CAD April 2023) -- transthoracic echocardiogram done today demonstrated LVEF 65% with mildly enlarged right ventricular chamber size and normal systolic function with RVSP of 38 mmHg and trivial mitral valve regurgitation -- pacemaker interrogation unremarkable -- continue: Rivaroxaban, torsemide # Failure Renal Acute (Acute Kidney Injury) -- very mild acute kidney injury is of unknown significance. -- patient receive 500 mL of IV fluids in the ED. Will give an additional L over 4 hours now. -- renally dose medications and avoid nephrotoxins (please note patient received IV contrast on theday of admission for CT angiogram). # Insufficiency Adrenal Primary (HCC) -- patient previously on oral hydrocortisone which appears to been discontinued sometime in 2019. This may have some impact on ability to fully wean off of prednisone. Will defer to outpatient setting. # Gastroesophageal Reflux Disease NOS -- continue pantoprazole Diet: Adult Diet Regular Tubes/lines: PIV VTE prophylaxis: therapeutic anticoagulation Current Activity/Mobility: BMAT Level 4 (Able to stand and walk; needs staff assist if fall risk factors identified) Fall Injury Prevention: I have discussed My Plan for Safe Activity with the patient. Disposition: [facility] Stable to discharge criteria (not yet met): Vital signs, Functional status, and Acute care monitoring needs The patient was seen and evaluated with Dr. Iglesias, HIM senior consumer insights consultant. I personally spent a total of 50 minutes providing and coordinating care today. STRIAL GAS PRODUCTION OPERATOR * Rosemarie Roman, Pharm.D., R.Ph., [facility] - 12/22/2024 7:55 AM CST Pharmacist Progress Note Reason for admission: Shortness Of Breath [R06.02] Hypoxia [R09.02] PMH: AF, HLD, DANAE, GERD, pacemaker, heart block, Asthma severe, depressive disorder, DENITA, NSTEMI 10/02, CHF (HFpEF), CAD OBJECTIVE Home medications: Held: bisacodyl, supplements, Dupixent, Changed: omeprazole to pantoprazole Prophylaxis: rivaroxaban, renally dosed ASSESSMENT / PLAN DENITA - all medications renally dosed. Home medications appropriately resumed. Monitor for constipation - appears per pharmacy dispense record, bisacodyl is taken daily. Consider therapy optimization with fiber/MiraLAX. CHF - torsemide - monitor with DENITA, potassium 4.6. BP 129/95. BPH? - finasteride started in 2019 for hematuria - re-evaluate need. Asthma/SOB - steroid taper, budesonide, Breo, montelukast, Duonebs. Medication profile reviewed. Medications and laboratory data have been reviewed. Pharmacy will continue to follow for medication use optimization. Changes to medications anticipated at discharge:TBD Rosemarie Roman Pharm.D., R.Ph., BCPS STRIAL GAS PRODUCTION OPERATOR documented in this encounter H&P Notes * Maryann Iglesias M.D., Ph.D. - 12/22/2024 9:03 AM CST .I saw and evaluated Marcos Perez on rounds today with the Medicine 5 team. I reviewed the H&P note by Gayatri Yeboah dated 12/22, and saw the patient with Dr. Socorro Torres and Marietta Mar PA-C. I agree with the Advanced-Practice Provider's findings and plan of care, as documented. My assessment and plan are as follows: #1 Usp (Current) Anticoagulant Treatment #2 Atrial Fibrillation Paroxysmal (HCC) #3 Apnea Sleep Obstructive #4 Hyperlipidemia #5 Pacemaker Cardiac Status Post #6 Failure Renal Acute (Acute Kidney Injury) #7 Shortness Of Breath #8 Eosinophilic Asthma (HCC) #9 Chronic Diastolic (Congestive) Heart Failure (HCC) The patient was awake and alerted. He reported that his fatigue and weakness have worsened since recent hospital discharge, and more so in the last few days. His CT chest angiogram was negative. We will obtain a TTE to assess cardiac function. We will continue nebulizers and will consult Pulmonary Medicine based on the TTE results and if concern for ILD flare. Please refer to Zaid's note dated today for additional details about our team's plan of care. STRIAL GAS PRODUCTION OPERATOR * Gayatri Yeboah P.A.-C., M.S. - 12/22/2024 3:44 AM CST [facility] Medicine 5 ([facility]) Admission Note SUBJECTIVE CHIEF COMPLAINT Dyspnea, fatigue HISTORY OF PRESENT ILLNESS Mr. Marcos Perez is a 89 y.o. male who presents with dyspnea. Medical comorbidities include atrial fibrillation on Xarelto, obstructive sleep apnea, eosinophilicasthma, hyperlipidemia, gastroesophageal reflux disease, depression, prolonged QT [...] resides at an assisted living facility in [place]. He required 3 hospitalizations since the end of October. Most recently was admitted to the Pulmonary Medicine Service and discharged on 12/10 with treatment recommendations for interstitial lung disease on a prolonged steroid taper needing PJP prophylaxis. In the ED he remained on his baseline oxygen requirement of 2 L while at rest, but upon exertion dropped to the mid 80s. CT did not show PE or focal pneumonia, and thus no antibiotics administered. Troponins remained flat, no ischemic changes noted on EKG, and NT proBNP within normal limits. COVID and influenza swabs also returned negative. Noted to have a slight DENITA with creatinine of 1.44. Pacemaker was interrogated, report not yet released. On my evaluation Cecil is sitting up at the edge of the bed. He remembers me from when I cared for him on the Medicine 8 service at the end of October. He tells me he has not had any cough or fevers,different from that hospitalization. He said he had an episode on where he felt very fatigued and his heart rate was labile, ranging from the low 50s to above 100. He thinks this is unusual given his pacemaker, and I agreed. He has not had any dizziness, syncope, chest pain, lower extremity edema, orthopnea. I have reviewed and updated the following: Past Medical History, Family History, Social History, and Allergies. REVIEW OF SYSTEMS Pertinent items are noted in HPI; otherwise a 12 point review of systems was negative. OBJECTIVE VITAL SIGNS Temperature: [36.5 ??C-36.6 ??C] 36.5 ??C Resp Rate: [16-20] 17 Blood Pressure: (110-139)/(55-81) 138/81 SpO2: [92 %-98 %] 93 % Flow Rate (L/min): [2 L/min] 2 L/min Pulse Rate: [68-83] 83 PHYSICAL EXAM General: Alert, interactive, no apparent distress. Skin: No rashes or lesions. HEENT: Sclerae anicteric. Bilateral hearing aids in place. Moist mucous membranes. Lungs: No respiratory distress. On supplemental oxygen at 2 L. Diffuse crackles at bases, otherwiselung sounds are clear. Heart: Regular rate and rhythm. No murmurs appreciated. No extremity edema. Abdomen: Bowel sounds present in all four quadrants. Abdomen is soft, nondistended, nontender. No organomegaly. Neuro: Grossly non-focal. Mental: Mood and affect congruent. Alert and oriented. Attention intact. No evidence of disorganized thinking. RASS 0. CAM negative for acute delirium. 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 DIAGNOSTICS I personally reviewed this patient's labs, imaging, electronic medical record. ASSESSMENT / PLAN Mr. Perez is hospitalized on [place] [id number] ([facility]) for evaluation and management of Shortness Of Breath. #Eosinophilic asthma #DANAE #Chronic hypoxic respiratory failure (2 L at night and with activity) #History of Pneumoconiosis Due To Asbestos And Other Mineral Fibers CBC without elevated eosinophils, and imaging and infectious workup otherwise negative for source of infection. He has been on a prolonged steroid taper and was to remain on 20 mg daily until his follow up with Pulmonary Medicine. He has noted increased shortness of breath for 1 week. Given absenceof infection thus far, and no signs of heart failure exacerbation, wonder if this is slight flare of his ILD. We will continue home bronchodilators and continue to monitor his respiratory status in the a.m., and may need to consider engaging our colleagues in Pulmonary Medicine for recommendations. --Continue Breo Ellipta, Pulmicort, DuoNebs, Singulair --Patient uses 2 L bleed in, able to use home CPAP #DENITA --Suspected pre-renal, will monitor after having received IV fluids #Atrial fibrillation on Xarelto #Mild CAD on coronary cath 04/2023 #History complete heart block 1998 s/p pacemaker #HFpEF --Follow-up pacemaker interrogation -- Continue home Xarelto, torsemide Diet: Regular Tubes/lines: PIV VTE prophylaxis: Home Xarelto PPI prophylaxis: Home PPI for GI ppx Current Activity/Mobility: BMAT Level 4 (Able to stand and walk; needs staff assist if fall risk factors identified) Fall Injury Prevention: I have discussed My Plan for Safe Activity with the patient. Disposition: Home Code status: DNR/DNI This patient will be staffed by the [facility] 5 day senior consumer insights consultant within the first 24 hours of admission. Counseling was provided [id number] at bedside regarding the plan of care as stated above. I personally spent over half of a total 75 minutes in counseling and coordination of care as documented above. STRIAL GAS PRODUCTION OPERATOR documented in this encounter Consult Notes * Mary Anne Goemz O.T., MOT - 12/23/2024 11:30 AM CST Occupational Therapy [facility] Inpatient Evaluation/Treatment SUBJECTIVE Patient's Name: Marcos Perez Referring/Attending Provider: Maryann Iglesias M.D. Reason for Referral: Occupational Therapy Evaluation and Treatment Onset Date: 12/21/2024 PERTINENT MEDICAL / SURGICAL HISTORY: Medical History[1] Surgical History[2] History of Present Illness: Marcos Perez is a 89 y.o. male who was admitted to [facility] in [place] on 12/21/2024 for Shortness Of Breath [R06.02] Hypoxia [R09.02]. Relevant Medical History: atrial fibrillation on Xarelto, obstructive sleep apnea, eosinophilic asthma, hyperlipidemia, gastroesophageal reflux disease, depression, prolonged QT syndrome, heart failure with preserved ejection fraction (EF 53%), history complete heart block April 1998 s/p pacemaker,and mild CAD via angiogram 04/2023, prior NSTEMI 2018 no stents placed. Baseline oxygen requirement is 2 L with CPAP at night and with activity, but none at rest prior to this illness. He resides at an assisted living facility in [place]. Precautions Other Precautions: respiratory (2 L NC 12/23) Falls screen: Fall in the last 12 months: No Pain Assessment: Pain not reported during session. Patient/Caregiver Goals: Return to prior level of function Subjective Comments: Agreeable to therapy session. Home Living and Equipment: Lives With: Alone Receives Help From: Family, Facility staff Type of Home: Assisted living facility that is adapted Prior Level of Function and Mobility: ADL Assistance: Required assistance ADL Assistance Comments: Requires assistance for bathing - whirlpool bath 2x wk IADL/Homemaking Assistance Comments: Meals provided. Cleaning/laundry completed. Driving: Does not drive Driving Comments: Daughter does errands and driving Level of [place]: Modified independent Gait Devices/Wheelchair Used: Four wheeled walker Dominant Hand: Right 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 OBJECTIVE Vital Signs: Vitals taken during session: O2 saturation: 95% and O2 flow: 2 L/min nasal cannula after activity Evaluation Assessment: STRENGTH: Assessed, no impairments RANGE OF MOTION: Assessed, no impairments Outcome Measures: AM-PAC Inpatient Short Form: Interpretation: Based on scoring guidelines using the [...] ofmany factors to consider when discharge planning. O Log: The Orientation Log is a quick, quantitative measure of orientation status to place, time, and circumstance. The O-Log can be used for serial assessment of orientation to document changes overtime. A score of 25 or higher is associated with normal orientation, however does not evaluate executive function. Score Breakdown: City: 04/[address]: 04/16 Name of Hospital: 04/16 Month: 04/16 Date: 04/16 Year: 04/16 Day of the Week: 04/16 Clock Time: 04/16 Etiology/Event: 04/16 Pathology Deficits: 04/16 Total Score: 30/30 Cognition: No observable concerns with cognition at this time Therapeutic Interventions: ACTIVITIES OF DAILY LIVING: LOWER BODY DRESSING - Assist Level: independent - Patient Location: chair - LB Dressing Item: socks - Therapist Delivery: assessed - Assist/Cues Provided: none for none FUNCTIONAL TRANSFERS: TRANSFER - Assist Level: stand by assist - Device: front wheeled walker and gait belt - Approach: to and from, ambulating - Surface: chair - Therapist Delivery: assessed, facilitated - Assist/Cues Provided: none for none - Engaged patient in functional mobility a long household distance out into the weber, providing assistance for pushing of O2 tank. The patient had mild shortness of breath, but nothing that caused [id number] to be below 90%. Education/Training Provided: Provided education on role of occupational therapy in the acute setting. Collaborated with patient and/or family on goals and plan of care. Team Communication: The patient's status was discussed and coordination of care occurred with RN, PT Patient was left in bedside chair at end of session with call light in reach, all needs met and questions answered. Assessment Discharge Therapy Needs - OT: No further skilled therapy If skilled therapy is recommended, skilled therapy can include occupational therapy provided in home health, outpatient or post-acute facility. The location of these services is determined by patient's care team in partnership with patient/family. Level of Care Needed - OT: Assistance with meal preparation, Assistance with transportation, Assistance with housekeeping, Assistance with shopping Barriers to Discharge Home: Current functional status, Fall risk Clinical Impression: Currently, patient presents with impairments including limited endurance with use of supplemental O2, however patient in sable to perform basic activities of daily living without assistance and is receiving assistance for instrumental activities of daily living at his [facility]. The patient seems to be at his functional baseline and does not have concerns about returning to [facility]. No further skilled acute Occupational Therapy is warranted at this time. Reconsult should the patient have a change in status or a change in functioning. The patient will benefit from ongoing occupational therapy services while hospitalized in order to improve engagement and independence in meaningful occupations. In-Hospital Activity and Mobility Recommendations: - Transfer into chair 3x/day with stand by assistance and walker. - Recommend position changes every 2 hours - Ambulate to bathroom for toileting - Eat ALL meals in chair - Active engagement in daily self-care routine (oral cares, face washing, combing hair) - Maintain typical day/night routine and incorporate sleep hygiene strategies From the Occupational Therapist's perspective, the patient is not an inpatient rehabilitation candidate and should be able to safely return home when medically stable and pain is managed. Plan Functional Goals: OT Goal #1: Patient and/or patient's family will verbalize understanding of bathroom safety equipment and durable medical equipment to increase ease and safety in performing self-care tasks in home environment. OT Goal #1 Status: Achieved Progress: All OT goals achieved Rehab potential: Mr. Perez has excellent potential to achieve established occupational therapy goals within the time frame outlined below. OT Frequency: OT Amount: 1 visit per day OT Frequency: One-time visit OT Inpatient Duration : Until goals are met Requires Inpatient OT Follow-Up: No Plan: Discontinue OT Treatment interventions may include: Treatment Interventions: Therapeutic functional activity, Therapeutic exercise, Self-care/home management, Cognitive skills training Occupational Therapy Attestation Statement: Patient agrees with the plan of care and goals. 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 Atrial Fibrillation Unspecified (HCC) BenignProstatic Hyperplasia Localized [...] Angiography; Surgeon: Estrada Christian M.D., Ph.D.; Location: [facility] CATH ANGIOGRAM N/A 05/13/2023 Procedure: Coronary Angiography; Surgeon: Bari Johnson M.D.; Location: [facility] CATH ANGIOGRAM N/A 05/13/2023 Procedure: Left Heart Catheterization; Surgeon: Bari Johnson M.D.; Location: [facility] CATH PACEMAKER Left 05/30/2023 Procedure: PPM Generator Change - Dual Chamber; Surgeon: Sidney Bartlett M.D.; Location: [facility] EYE SURGERY bilateral cateract surgery HERNIA REPAIR JOINT REPLACEMENT PACEMAKER OPERATIVE PROSTATE SURGERY TURP TONSILLECTOMY VASECTOMY STRIAL GAS PRODUCTION OPERATOR * Crissy Watkins P.T., D.P.T. - 12/23/2024 9:41 AM CST Physical Therapy Inpatient Evaluation/Treatment SUBJECTIVE Patient's Name: Marcos Perez Referring/Attending Provider: Maryann Iglesias M.D. Reason for Referral: Physical Therapy Evaluate and Treat Onset Date: 12/21/2024 Pertinent Medical / Surgical History: Medical History[1] Surgical History[2] History of Present Illness: Marcos Perez is a 89 y.o. male who was admitted to [facility] in [place] on 12/21/2024 for Shortness Of Breath [R06.02] Hypoxia [R09.02]. Relevant Medical History: Dyspnea, fatigue RST PT/OT Falls screen: Fall in the last 12 months: No Pain Assessment: Pain not reported during session. Patient/Caregiver Goals: Return to home Subjective Comments: Agreeable to therapy session. Home Living and Equipment: Lives with: Alone, lives in her own APT in the same facility Receives help from: Facility Staff Type of Home: Assisted Living Facility Home Layout: One Level Home Access: Level entry Bathroom Accessibility: Accessible via walker Shower: Walk-in Shower Patient doesn't use his shower he gets bathes 2x a week by facility staff Toilet: Comfort Toilet Toilet Equipment: Grab bar(s) at toilet Assistive Device Owned: Four wheeled walker, Scooter Adaptive Equipment Owned: None Other DME Owned: Regular flat bed Prior Level of Function and Mobility: Basic Activities of Daily Living: Modified Independent: Grooming, UB dressing, LB dressing, and Toileting Instrumental Activities of Daily Living: Required Assistance: Medication management, Meals/Cooking, Shopping, Groceries, Housekeeping, Laundry, Transportation Functional Mobility: Modified Independent, Four wheeled walker, Scooter Driving: No OBJECTIVE Vital Signs: Vitals taken during session: Pulse rate: 110 bpm, O2 saturation: 85-90%, and O2 flow: 2 L/min nasalcannula (Vitals with activity) Evaluation Assessments: Strength: Not formally assessed but appears within functional limits based on observation Range of Motion:Not formally assessed but appears within functional limits based on observation Outcome Measures: AM-PAC Inpatient Short Form: AM-PAC [...] 3-5 steps with a railing?: A Little AM-PAC Basic Mobility (V.2) Raw Score: 23 AM-PAC Basic Mobility (V.2) Standardized Score: 50.88 Interpretation: Based on scoring guidelines using the [...] SIT: - Assist Level: independent - Device: head of bed elevated - Therapist Delivery: assessed - Assist/Cues Provided: none for technique SIT TO STAND: - Assist Level: modified independent - Device: gait belt and front wheeled walker - Surface: bed - Therapist Delivery: assessed - Assist/Cues Provided: verbal for safety and sequencing STAND TO SIT: - Assist Level: modified independent - Device: gait belt and front wheeled walker - Surface: bed and chair - Therapist Delivery: assessed - Assist/Cues Provided: none for safety GAIT: - Distance: 150 feet - Assist Level:modified independent - Device: gait belt and front wheeled walker - Quality: steady - Therapist Delivery: assessed - Assist/Cues Provided:none for pacing - Comments: patient maintained above 90% during activity and dropped slightly during seated recovery but was able to monitor his oxygen and quickly recovered. EDUCATION: -Role of PT in acute setting and collaborated with patient and/or family on goals and plan of care. The patient's status was discussed and the following coordination of care occurred with the RN and OT Patient was left in bedside chair with chair alarm on at end of session with call light in reach, all needs met and questions answered. Assessment Discharge Therapy Needs - PT: Ongoing skilled physical therapy (patient reports he receives PT at his facility) If skilled therapy is recommended, skilled therapy [...] Clinical Impression: Currently, patient presents with decreased activity tolerance resulting in the following impaired gait. Facilitated bed mobility, transfers, and gait. Patient was modified independent with mobility using the front wheeled walker. Patient demonstrates ability to safely monitor his O2 while ambulating the hallways. He recovered quickly in room. He appears to be functioning close to baseline. Plan to sign off. Physical therapy treatment is medically necessary to restore and maximize function, maximize safetyand facilitate discharge to home, teach and educate the patient and/or caregivers. Plan Functional Goals: PT Inpatient Goals PT Goal #1: Patient will demonstrate bed mobility from flat surface independently. PT Goal #1 Status: Achieved PT Goal #2: Patient will perform sit to stand transfer modified independent with least restrictive gait aid. PT Goal #2 Status: Achieved PT Goal #3: Patient will ambulate 150 feet modified independent with least restrictive gait aid. PT Goal #3 Status: Achieved Progress: Progressing toward goals Marcos Perez has Good rehab potential to meet the expected outcomes in a reasonable period of time. Treatment Plan: Plan: Discontinue PT PT Frequency: One-time visit Requires Inpatient Follow-Up: No Patient agrees with the plan of care and goals. Treatment interventions may include: Treatment/Interventions: Therapeutic functional activity, Therapeutic exercise, Gait training, Neuromuscular re-education Billing: Tiered PT Evaluation Codes: Comorbid Conditions: Cardiopulmonary disease Personal Factors: Needs assistive device Examination elements: 1-2 Clinical Presentation: Evolving Clinical Decision Making: Moderate complexity clinical decision making Time Spent with Patient Evaluations PT Eval - Mod Complexity: 19 min Time Tracking Total Treatment Time (min): 19 min Crissy Watkins P.T., D.P.T. 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 Atrial Fibrillation Unspecified (HCC) BenignProstatic Hyperplasia Localized [...] Angiography; Surgeon: Estrada Christian M.D., Ph.D.; Location: [facility] CATH ANGIOGRAM N/A 05/13/2023 Procedure: Coronary Angiography; Surgeon: Bari Johnson M.D.; Location: [facility] CATH ANGIOGRAM N/A 05/13/2023 Procedure: Left Heart Catheterization; Surgeon: Bari Johnson M.D.; Location: [facility] CATH PACEMAKER Left 05/30/2023 Procedure: PPM Generator Change - Dual Chamber; Surgeon: Sidney Bartlett M.D.; Location: [facility] EYE SURGERY bilateral cateract surgery HERNIA REPAIR JOINT REPLACEMENT PACEMAKER OPERATIVE PROSTATE SURGERY TURP TONSILLECTOMY VASECTOMY STRIAL GAS PRODUCTION OPERATOR * Jacky Javed M.D. - 12/22/2024 4:16 PM CSTAssociated Order(s): IP CONSULT TO PULMONARY MEDICINE CHIEF COMPLAINT / REASON FOR VISIT Since request of HIM 5 for possible ILD exacerbation HISTORY OF PRESENT ILLNESS I have seen Mr. Valenzuela a month ago and since then he has also been admitted on the inpatient pulmonary service, discharged on December 10. 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 Yesterday, on his last day on the 40 mg daily dose, he felt that he was unable to exert as much as previously, can not tell me if he felt tired or whether he was truly short ofbreath, but is clear that he had no cough, sputum production, chest pain or any perceived change inhis heart rhythm. Today, now on the previously planned 20 mg prednisone my he feels the same as yesterday although hehas not been particularly ambulant since admission. His oxygen supplementation continues at 2 L/minat rest, as his baseline. SOCIAL HISTORY Reviewed FAMILY HISTORY Reviewed PAST MEDICAL/SURGICAL HISTORY Reviewed CURRENT MEDICATION LIST Current Medications[1] REVIEW OF SYSTEMS No new fever, cough, sputum production or chest pain. No orthopnea or leg swelling. Can not tell me if his legs feel weak or whether he is able to sit and stand without support today. A 10-point review of systems is negative except as specified previously. OBJECTIVE BP 137/62 (BP Location: Left arm;Upper, Patient Position: Sitting) Pulse 90 Temp 36.4 ??C (Axillary) Resp 18 Ht 167.6 cm Wt 87 kg SpO2 95% BMI 30.97 kg/m?? PHYSICAL EXAM General: He is lying comfortably in bed, saturating at 95% on 2 L/min nasal cannula, and did not cough or wheeze during the examination ENT: No stridor Lungs: Normal chest wall shape and movements. Normal breath sounds. Few inspiratory crackles in thebases, not Velcro like. No wheezes or rubs. 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 There are no additional symptoms to suggest flare, either of his asthma or his interstitial process, and he is unclear whether weakness, fatigue or dyspnea is the real primary issue. His resting oxygen needs have not changed. I would suggest he continued to have his prednisone tapered but perhaps in a slightly more gradual way. He will be on 30 mg daily for a week before dropping to the previously planned 20 mg daily. #2 Eosinophilic asthma He does not have any audible wheezing, does not describe a cough or sputum production, but does have measurable eosinophils, 0.03, despite his prednisone dosing. This will need to be monitored and treatment adjusted as an outpatient. #3 Atrial fibrillation, anticoagulated/complete heart block, status post pacemaker implantation 1998 His current echocardiogram does not show anything of immediate concern other than a modestly elevated, but stable, RVSP. [1] Current Facility-Administered Medications: acetaminophen tablet 1,000 mg (TylenoL), 1,000 mg, oral, BID PRN, Gayatri Yeboah P.A.-C., M.S. budesonide 0.25 mg/2 mL nebulizer solution 0.25 mg (Pulmicort), 0.25 mg, nebulization, BID, Gayatri Yeboah P.A.-C., M.S., 0.25 mg at 12/22/24 0925 cholecalciferol (vitamin D3) tablet 25 mcg, 25 mcg, oral, Daily, Gayatri Yeboah P.A.-C., M.S., 25 mcg at 12/22/24 0927 finasteride tablet 5 mg (Proscar), 5 mg, oral, Daily, Gayatri Yeboah P.A.- C., M.S., 5 mg at 12/22/24 0926 fluticasone furoate-vilanteroL 100-25 mcg/actuation inhaler 1 puff (Breo Ellipta), 1 puff, inhalation, Daily, Gayatri Yeboah P.A.-C., M.S., 1 puff at 12/22/24 0933 ipratropium-albuteroL 0.5-2.5 mg/3 mL nebulizer solution 3 mL (DuoNeb), 3 mL, nebulization, 4x Daily, Gayatri Yeboah P.A.-C., M.S., 3 mL at 12/22/24 1256 Lactated Ringer's bolus 1,000 mL, 1,000 mL, intravenous, Once, Marietta Mar P.A.-C., P.A. montelukast tablet 10 mg (Singulair), 10 mg, oral, Daily at bedtime, Gayatri Yeboah P.A.-C., M.S. pantoprazole DR tablet 40 mg (Protonix), 40 mg, oral, Daily before morning meal, Gayatri Yeboah P.A.-C., M.S., 40 mg at 12/22/24 0554 [START ON 12/23/2024] potassium chloride ER tablet 20 mEq, 20 mEq, oral, Daily with morning meal, Marietta Mar P.A.-C., P.A. predniSONE tablet 10 mg (Deltasone), 10 mg, oral, Once, Marietta Mar P.A.-C., P.A. [START ON 12/23/2024] predniSONE tablet 30 mg (Deltasone), 30 mg, oral, Daily, Marietta Mar P.A.-C., P.A. rivaroxaban tablet 15 mg (Xarelto), 15 mg, oral, Daily with evening meal, Gayatri Yeboah P.A.-C., M.S. sertraline tablet 50 mg (Zoloft), 50 mg, oral, Daily, Gayatri Yeboah P.A.- C., M.S., 50 mg at 12/22/24 0927 sodium chloride 0.9 % injection 10 mL, 10 mL, intravenous, PRN, Og Blanco, D.O. sodium chloride 0.9 % injection 3 mL, 3 mL, intravenous, PRN, Og Blanco D.O. sodium chloride 0.9 % injection 3 mL, 3 mL, intravenous, Q12H SEBASTIAN, Og Blanco D.O., 3 mL at 12/22/24 0929 sulfamethoxazole-trimethoprim 400-80 mg per tablet 1 tablet (Bactrim), 1 tablet, oral, Daily, Gayatri Yeboah P.A.-C., M.S., 1 tablet at 12/22/24926 torsemide tablet 60 mg (Demadex), 60 mg, oral, Daily, Gayatri Yeboah P.A.- C., M.S., 60 mg at 12/22/24 09 STRIAL GAS PRODUCTION OPERATOR * Aisha Silver M.S.N., R.N. - 12/22/2024 12:13 PM CSTAssociated Order(s): IP CONSULT TO CARE MANAGEMENT; IP CONSULT TO CARE MANAGEMENT Discharge Planning Assessment SUBJECTIVE Assessment Information Referral Data Referral Source: Early Screen for Discharge Planning Referral Reason: Discharge Planning Discharge Planning: Assisted living Previous Assessment: Yes Previous assessment done on: 12/07/24 Previous assessment done by: Libby Morataya RShahnaz Plant Specialist Services Used: No Primary Language: Cuban Plant Specialist Services Used: No Person(s) Present During Interview: patient History of Present Illness #1 Usp (Current) Anticoagulant Treatment #2 Atrial Fibrillation Paroxysmal (HCC) #3 Apnea Sleep Obstructive #4 Hyperlipidemia #5 Gastroesophageal Reflux Disease NOS #6 Pacemaker Cardiac Status Post #7 Block Heart #8 Insufficiency Adrenal Primary (HCC) #9 Prolonged QT Interval #10 Failure Renal Acute (Acute Kidney Injury) #11 Asthma Severe (HCC) #12 Shortness Of Breath #13 Eosinophilic Asthma (HCC) #14 Chronic Diastolic (Congestive) Heart Failure (HCC) Social History Marital Status: Support System: spouse, children, and facility staff Social Drivers of Health with Concerns No concerns present OBJECTIVE Finance/Insurance Primary insurance: MEDICARE A AND B Secondary insurance: Health Essentials benefits: No Advance Directives Legal Decision Maker: Self Advance Directives: On file, POLST/POST Baseline Functional Status Baseline Activities of Daily Living Mobility: Modified independent, Requires aide of device Dressing: Independent Feeding: Independent Bathing: Needs assistance Grooming: Independent Toileting: Independent Behavior: Appropriate, Pleasant, Calm, Cooperative Communication: Talks, Can write, Understands speaking, Understands Cuban Shopping: Dependent Medication Management: Dependent Housekeeping: Needs assistance Meal Prep: Dependent Assistive Devices: BiPAP/CPAP/VPAP, Cellphone, Eyeglasses, Grab bars - toilet, Grab bars - wall, Walker - front wheeled, Tub/shower chair/bench, Oxygen, Hearing aid(s), Scooter Home Oxygen Company: [employer] Services/Resources: Intermittent supervision Transportation: Support from family Managing Finances: Independent Baseline Services/Resources Primary care clinic and provider: Patient Care Team Relationship Specialty Notifications Start End Angel Arredondo M.D. External Primary Care Physician Family Medicine Yes. All results 11/17/24 Address: [address] [facility] [id number] Services/Resources: Intermittent supervision Additional Resources: Additional Services: NA Anticipated Needs Functional Status: None Assistive Devices: None Anticipated Modifications to the Patient's Home: None Transportation Needs: Support from family Does the patient need discharge transport arranged?: No Phone Number for Ride/Caregiver: family member Anticipated Discharge Destination: [facility] or Intermediate Care Facility Referrals Initiated: Destination - Admitted Since 12/21/2024 Service Provider Request Status Services Address Phone Fax Patient Preferred [facility] P[facility] - [facility] [address] [facility] [phone] -- and Durable Medical Equipment - Admitted Since 12/21/2024 Service Provider Request Status Services Address Phone Fax Patient Preferred [facility] Pending - Request Sent -- [address] [id number] -- pigment supplier provided Discharge Planning Guide ([id number]) and information regarding the dismissal process. ASSESSMENT / PLAN ASSESSMENT: The pigment supplier met with Marcos Perez in his hospital room on [facility] to discuss his current hospitalization and home going needs. The patient was unaccompanied. Cecil was sitting up in the chair and alert, his readiness to complete the consult was assessed.The patient was a reliable historian. The role of pigment supplier was reviewed. The patient reviewed his prior level of care and support system. The patient receives support from his , children, and facility staff. Marcos resides alone in a assisted living facility with level entry. Cecil states that his livesat the same [facility] as him but in a separate apartment as there is not enough room for all of their medical equipment in one room as both of the need oxygen and have mobility devices. Housekeeping, grocery shopping, meal prep, and other household responsibilities have previously been completed by patient and facility staff. Cecil states that while he manages most of his ADLs independently with the use of his walker or scooter, he does receive assistance from the [facility] staff with meals, med management and bathing twice a week and his children provide transportation. - At this time, the care team anticipates the patient requires the following service(s) to be reconnected: oxygen and assisted living facility. The patient identified the following as their current vendor(s): [facility] and [employer]. Reconnect request have been sent to the [facility] The patient's potential needs at dismissal based on their home setting, previous needs and responsibilities, homebound status, and relevant assessments were discussed. The patient may be safe and supported to discharge home alone to his apartment at the [facility] when medically ready.Support will be provided by spouse, family members and facility staff. pigment supplier recommendations include: discussing needed assistance with family, friends, or neighbors . The following potential barriers to dismissal have been identified: DC Barriers: complex care/acuity The following hospital-based consult orders and/or referrals placed or requested: None. PLAN: The patient agrees with the following plan. Patient's Anticipated Discharge Destination: Anticipated Discharge Destination: [facility] or Intermediate Care Facility Pending reconnect- requests sent to [facility] 1500 Received call from [employer] and was able to reconnect patient, still waiting on [facility] reconnect Oxygen Reconnect: Durable Medical Equipment - Admitted Since 12/21/2024 Service Provider Services Address Phone Fax Patient Preferred [facility] Durable Medical Equipment [address], [place] [address] -- Contact: Intake Respiratory Equipment : Portable concentrator, 5 L concentrator, and back up tank Oxygen provider reports patient???s current orders are for 1 liter with activity. NURSING: - Arrange transportation oxygen tank if needed. - If new oxygen requirements are needed, assist primary service with new prescription and fax to provider. PRIMARY SERVICE: - Complete and sign new oxygen prescription if needed. Research Editor : -Reviewed patient's insurance coverage for the services noted above. The patient appear(s) to have an understanding of this. -Will continue to follow and assist if needs arise. Transportation upon dismissal will be provided by family-- . pigment supplier encouraged the patient to reach out with any questions/concerns. Care Management will continue to assess for homegoing needs with the interdisciplinary team. Signed by: Ovidio Waite RShahnaz 12/22/2024 STRIAL GAS PRODUCTION OPERATOR STRIAL GAS PRODUCTION OPERATOR documented in this encounter Nursing Notes * Sun Morris R.N. - 12/27/2024 2:15 PM CST Shift Goals: Clinical Goals for the Shift: Patient will maintain SPO2 > 90% on RA End of Shift Summary: Pt will be discharging today to [facility]. AVS and Discharge Summary reviewed, patient/caregiver verbalized understanding. Patient and all personal belongings were discharged to pt, transport provided by [facility]. Nurse to nurse report given.Vital signs stable prior to discharge and IV access removed. Problem: Risk for Compromised Skin Integrity-Other Body Press Operator(s) Goal: Risk for Compromised Skin Integrity-Other Body Press Operator(s) Outcome: Adequate for Discharge Problem: SAFETY ADULT Goal: Maintain a safe environment Outcome: Adequate for Discharge Problem: SAFETY ADULT - RISK FOR FALL AND OR FALL INJURY Goal: Patient remains free from fall/fall injury Outcome: Adequate for Discharge Problem: PAIN - ADULT Goal: VERBALIZES/DISPLAYS ADEQUATE COMFORT LEVEL OR BASELINE COMFORT LEVEL Outcome: Adequate for Discharge Problem: KNOWLEDGE DEFICIT [...] remain intact Outcome: Adequate for Discharge Problem: DISCHARGE PLANNING Goal: Patient discharge needs identified Outcome: Adequate for Discharge Problem: Risk for Compromised Skin Integrity-Maurice Activity Score 3 Goal: Achieve optimal activity to maintain or improve skin integrity. Outcome: Adequate for Discharge Problem: RESPIRATORY - ADULT Goal: Achieves optimal ventilation and oxygenation Outcome: Adequate for Discharge Problem: Risk for Compromised Skin Integrity-CPAP/BIPAP Goal: Maintain and/or improve skin integrity under and around CPAP/BIPAP. Outcome: Adequate for Discharge Problem: GASTROINTESTINAL - ADULT Goal: Optimize bowel function Outcome: Adequate for Discharge Problem: MUSCULOSKELETAL - ADULT Goal: Optimize ADL status Outcome: Adequate for Discharge Problem: Risk for Compromised Skin Integrity-Maurice Sensory Perception Score 1, 2, or 3 Goal: Manage sensory perception deficits to maintain and/or improve skin integrity. Outcome: Adequate for Discharge STRIAL GAS PRODUCTION OPERATOR * Kristy Hall R.N. - 12/26/2024 5:18 PM CST Shift Goals: Clinical Goals for the Shift: Patient's O2 saturation will remain above 90% throughout shift. Identify possible barriers to meeting goals/advancing plan of care: Family to provide ride for tomorrow End of Shift Summary: Patient A&OX3, RA, SBA, no complaints of pain. Patient took a shower and had fresh new linen. Patients son will give him a ride tomorrow back to [facility] and will let case management know what time in the morning. Problem: Risk for Compromised Skin Integrity-Other Body Press Operator(s) Goal: Risk for Compromised Skin Integrity-Other Body Press Operator(s) Outcome: Progressing Problem: SAFETY ADULT Goal: Maintain a safe environment Outcome: Progressing Problem: SAFETY ADULT - RISK FOR FALL AND OR FALL INJURY Goal: Patient remains free from fall/fall injury Outcome: Progressing Problem: PAIN - ADULT Goal: VERBALIZES/DISPLAYS ADEQUATE COMFORT LEVEL OR BASELINE COMFORT LEVEL Outcome: Progressing Problem: KNOWLEDGE DEFICIT Goal: Patient/family/caregiver demonstrates understanding of disease process, treatment plan, medications, and discharge instructions Outcome: Progressing Problem: INFECTION - ADULT Goal: Absence of infection during hospitalization Outcome: Progressing Problem: SKIN/TISSUE INTEGRITY Goal: Skin/Tissue integrity maintained or improved Outcome: Progressing Goal: Oral and Nasal mucous membranes remain intact Outcome: Progressing Problem: DISCHARGE PLANNING Goal: Patient discharge needs identified Outcome: Progressing Problem: Risk for Compromised Skin Integrity-Maurice Activity Score 3 Goal: Achieve optimal activity to maintain or improve skin integrity. Outcome: Progressing Problem: RESPIRATORY - ADULT Goal: Achieves optimal ventilation and oxygenation Outcome: Progressing Problem: Risk for Compromised Skin Integrity-CPAP/BIPAP Goal: Maintain and/or improve skin integrity under and around CPAP/BIPAP. Outcome: Progressing Problem: GASTROINTESTINAL - ADULT Goal: Optimize bowel function Outcome: Progressing Problem: MUSCULOSKELETAL - ADULT Goal: Optimize ADL status Outcome: Progressing Problem: Risk for Compromised Skin Integrity-Maurice Sensory Perception Score 1, 2, or 3 Goal: Manage sensory perception deficits to maintain and/or improve skin integrity. Outcome: Progressing STRIAL GAS PRODUCTION OPERATOR * Kya Kraft M.A.N., R.N. - 12/25/2024 6:29 PM CST Shift Goals: Clinical Goals for the Shift: Patient's O2 saturation will remain above 90% throughout shift. Identify possible barriers to meeting goals/advancing plan of care: End of Shift Summary: vitally stable this shift. Patient weaned to room air at rest and tolerating walks in hallway with nursing using 1L NC. See below for rest of shift notes. Problem: SAFETY ADULT Goal: Maintain a safe environment Outcome: Progressing Note: Call light appropriate this shift. Alarms on for safety. No impulsivity noted this shift. Problem: PAIN - ADULT Goal: VERBALIZES/DISPLAYS ADEQUATE COMFORT LEVEL OR BASELINE COMFORT LEVEL Outcome: Progressing Note: No pain this shift. Problem: RESPIRATORY - ADULT Goal: Achieves optimal ventilation and oxygenation Outcome: Progressing Note: Patient weaned to RA at rest and 1L NC with activity. Patient reports minimal shortness of breath with walks. Problem: GASTROINTESTINAL - ADULT Goal: Optimize bowel function Outcome: Progressing Note: LBM 12/23. PRN bowel meds ordered if needed Problem: MUSCULOSKELETAL - ADULT Goal: Optimize ADL status Outcome: Progressing Note: Patient went for 4 long walks in the hallway with nursing staff. Patient up SBA with walker and gb STRIAL GAS PRODUCTION OPERATOR * Trung Dale R.N. - 12/24/2024 4:03 PM CST Shift Goals: Clinical Goals for the Shift: Pt will maintain proper oxygenation with ambulation. Identify possible barriers to meeting goals/advancing plan of care: SOB End of Shift Summary: Pt VSS and on 2L NC at rest and w/ ambulation. Pt up in the chair and ambulating in the hallway with staff. Pt SBA with GB/W. Pt used urinal; continent of bowel and bladder. No BM. Pt reported no pain. Problem: Risk for Compromised Skin Integrity-CPAP/BIPAP Goal: Maintain and/or improve skin integrity under and around CPAP/BIPAP. Outcome: Progressing Problem: SAFETY ADULT Goal: Maintain a safe environment Outcome: Progressing Problem: PAIN - ADULT Goal: VERBALIZES/DISPLAYS ADEQUATE COMFORT LEVEL OR BASELINE COMFORT LEVEL Outcome: Progressing Problem: INFECTION - ADULT Goal: Absence of infection during hospitalization Outcome: Progressing Problem: SKIN/TISSUE INTEGRITY Goal: Skin/Tissue integrity maintained or improved Outcome: Progressing Goal: Oral and Nasal mucous membranes remain intact Outcome: Progressing Problem: DISCHARGE PLANNING Goal: Patient discharge needs identified Outcome: Pt with return to [facility]. STRIAL GAS PRODUCTION OPERATOR * Gustavo Javed R.N. - 12/23/2024 6:29 PM CST Shift Goals: Clinical Goals for the Shift: Patient's O2 saturation will remain above 90% throughout shift. Identify possible barriers to meeting goals/advancing plan of care: Asthma End of Shift Summary: pt VSS, CLA, 2L NC, AOx3, pleasant and cooperative. Shift goal was accomplished. In chair on phone. STRIAL GAS PRODUCTION OPERATOR * Amy Lundberg M.SAnaNAna, R.N. - 12/22/2024 6:59 PM CST Problem: SAFETY ADULT Goal: Maintain a safe environment 12/22/20241819 by Amy Lundberg, Julee.S.N., R.N. Outcome: Progressing 12/22/20241819 by Amy Lundberg M.S.N., R.N. Outcome: Progressing Problem: SAFETY ADULT - RISK FOR FALL AND OR FALL INJURY Goal: Patient remains free from fall/fall injury 12/22/20241819 by Amy Lundberg M.SStella., R.N. Outcome: Progressing 12/22/20241819 by Amy Lundberg M.S.N., R.N. Outcome: Progressing Problem: RESPIRATORY - ADULT Goal: Achieves optimal ventilation and oxygenation Outcome: Progressing Shift Goals: Clinical Goals for the Shift: Patient's O2 saturation will remain above 90% throughout shift. Identify possible barriers to meeting goals/advancing plan of care: Poor oxygenation status End of Shift Summary: A&Ox3, on 2L NC (baseline), VSS. No pain reported throughout shift. Pt upto chair for all meals Ax1 GB/walker. Good urinary output w/ voids to urinal; no BM occurrence thisshift. TTE and cardiac interrogation completed this shift. Scheduled DuoNebs completed and well tolerated. Ordered LR given and well tolerated. Call light appropriate. STRIAL GAS PRODUCTION OPERATOR * Pelon Bradshaw R.R.TAna, C.R.T., L.R.T. - 12/22/2024 5:52 AM INDUSTRIAL GAS PRODUCTION OPERATOR Patient is a 89 y.o. male Admitted on 12/21/2024 Principal Problem: Shortness Of Breath Alert Information: Plan of Care: Patient was put on Auto-CPAP for the night. Prior to putting patient on Patients own PAP was visually inspected and set up. Patient requires assistance of properly applying their own interface mask, powering up the PAP, and removing the interface in the morning. Contact RT with any question or concerns. Non-Invasive Support: BPAP/CPAP Interface: Full face mask BPAP/CPAP Interface Size: Medium Patient's Own Equipment: Mask, Tubing, CPAP, Patient able to manage equipment on own, Equipment inspected (per site policy) BPAP/CPAP Mode: Auto-CPAP Vent Parameters: BPAP/CPAP Mode: Auto-CPAP Maximum Pressure: 15 cm H2O Minimum Pressure: 4 cm H2O Electronically signed by: Pilar NicholeRShaila, C.R.T., DoriR.T. 12/22/24 5:52 AM INDUSTRIAL GAS PRODUCTION OPERATOR STRIAL GAS PRODUCTION OPERATOR documented in this encounter ED Notes * Og Blanco D.O. - 12/22/2024 1:15 AM CST I have personally seen and examined this patient. I have fully participated in the care of this patient. I have reviewed all clinical information including history, physical exam, orders, and plan. Juan with the note of the resident. This is an 89-year-old male who resides in assisted living. He has a history of pulmonary fibrosis and recurrent pneumonias. He presents the emergency department reporting about a week's worth of worsening dyspnea with exertion. He denies associated cough, fevers, or chills. He has not noted any lower extremity edema. He has also noticed some episodes where his heart rate becomes elevated above 100 and other times when his heart rate is in the 50s. He denies associated syncope. He notes that hefeels more short of breath when he is exerting himself. Patient uses 2 L of nasal cannula oxygen atall times. Upon arrival to the ED, patient is afebrile and hemodynamically stable. He appears to be maintaining his oxygen saturations on 2 L nasal cannula. He is in no acute distress on exam. He has no associated tachypnea. He has rhonchi over the bilateral bases. He has no significant increased work of breathing. Extremity exam demonstrates no pitting or significant edema. Plain film imaging of the chest demonstrates what appears to potentially be a pneumonia. Lab work demonstrates a leukocytosis but this is in the context of the patient being on chronic steroids. He is currently taking 20 mg of prednisone. The patient's EKG demonstrates a paced rhythm without acute ischemic changes. Troponin testing is flat. ProBNP is not significantly elevated at 466. Viral swabs are negative. We will obtain a device interrogation given the patient's report of palpitations and occasional bradycardia. We will also obtain CT imaging of the chest to better evaluate for potential underlying pneumonia. At this time he appears to be maintaining his oxygen saturations on his baseline 2 L nasal cannula. Suspect wewill plan to road test the patient if his workup here is negative to assess his oxygen needs with exertion. Patient's chest CT demonstrates no evidence of pneumonia. We attempted to road test the patient in he desaturated into the mid 80s on his baseline 2 L nasal cannula. He also was fairly dyspneic and tachypneic with this. At this point I suspect he may be having a flare of his underlying interstitiallung disease in the setting of a steroid taper. Family feels very uncomfortable returning to independent living over the weekend given the reproducibility of his symptoms. As such I think would be reasonable to admit the patient for further supportive management. Final Diagnoses: as of 12/22/24 0302 Shortness Of Breath Hypoxia My ECG interpretation is documented in ED Course. My Plain Films interpretation is documented in ED Course. My CT Scan interpretation is documented in ED Course. Og Blanco D.O. 12/22/24 030 Og Blanco D.O. 12/22/24 0424 STRIAL GAS PRODUCTION OPERATOR STRIAL GAS PRODUCTION OPERATOR * Brian Vaca M.D. - 12/22/2024 12:20 AM CST Marcos Perez 89 y.o. male Chief Complaint: Shortness of Breath and Rapid Heart Rate Initial Vitals Temperature 12/21/24 1726 36.6 ??C Pulse Rate 12/21/24 1726 82 Heart Rate -- Resp Rate 12/21/24 1726 20 Blood Pressure 12/21/24 1727 122/71 SpO2 12/21/24 1726 98 % Pain Score 12/21/24 2142 0 - No pain DATE OF VISIT: 12/21/2024 SUBJECTIVE CHIEF COMPLAINT / REASON FOR VISIT Marcos Perez is a 89 y.o. male who presents for evaluation of Shortness of Breath and Rapid Heart Rate. The patient verbally consented to an audio recording of their visit to assist with the completion of documentation. 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 He is accompanied by family. He has been experiencing shortness of breath for the past week, with episodes of oxygen saturation dropping into the eighties, accompanied by fatigue. No chest pain, fever, or productive cough, although he has had a sporadic non-productive cough. He has a history of similar episodes, but the current severity prompted this visit. He has experienced leg swelling, which has changed recently, and he has lost eight pounds since hislast hospital stay, attributed to water weight loss. No urinary or bowel symptoms and no abdominal pain. Yesterday, he experienced an episode where his pulse dropped to fifty, accompanied by significant fatigue. His heart rate has been fluctuating between ninety-four and one hundred and four, causing anxiety and difficulty breathing. These symptoms prompted his family to bring him in for evaluation. He resides in an assisted living facility where his vitals are regularly monitored. Over the past six days, he has been working with a physical therapist but reports that his oxygen levels drop into the eighties when walking, limiting his activity. His medical history includes pneumonia, with hospitalization at the end of October. He was readmitted twice, with the third time being suspected for interstitial lung disease rather than pneumonia. He is currently on Xarelto, which has been decreased due to concerns about his creatinine levels and potential atrial fibrillation. EXAM/ MEDICAL DECISION MAKING ASSESSMENT / PLAN ED Course as of 12/22/24 0341 Sat Dec 22, 2024 0020 Creatinine(!): 1.44 12 days ago was 1.15 0020 Pt reports SOB, described as labored breathing, x1 week. Denies cough and CP. Pt on 2L NC which is baseline. No new leg swelling present. 0136 Physical exam: Answering questions appropriately, engaged during exam. Normal respiratory effort. Abdomen distended, nontender diffusely. Mild bilateral lower extremity edema. Assessment and plan: Upon initial evaluation patient is hemodynamically stable and not in any acute distress. He is on anew oxygen requirement of 2 L nasal cannula while at rest saturating in the mid 90s. It is possiblethat he is having symptoms related to his interstitial fibrosis, though given the described worsening dyspnea, plan to further exclude pneumonia especially with the opacities on chest x-ray with CT which we will also used to assess for PE. Blood gas shows compensated respiratory acidosis. Has an DENITA, creatinine 1.4 4 from 1.15 12 days ago. Giving a 500 L bolus as I do not believe that he is in acute heart failure, and clinically appears slightly volume depleted. Also planning to assess his pacem ry with a interrogation of device given he is having episodic possible bradycardia and dyspnea. 0140 CT Chest Angiogram and Pulmonary Arteries with IV Contrast CT scan does not show any PE, unconvincing for focal pneumonia. Plan to road test and assess if he is truly having an increased oxygen requirement. [address], hypoxic to the mid 80s on baseline 2 L nasal cannula. Plan to admit 0340 Handed off to inpatient team, they request an RSV swab Final Diagnoses: as of 12/22/24 0341 Shortness Of Breath Hypoxia DIAGNOSTIC STUDIES LABORATORY RESULTS: Abnormal Labs Reviewed BASIC METABOLIC PANEL, S/P - Abnormal; Notable for the following components: Result Value Chloride, P 93 (*) Bicarbonate, P 33 (*) BUN (Blood Urea Nitrogen), P 25 (*) Creatinine 1.44 (*) Estimated GFR (eGFR) 47 (*) All other components within normal limits CBC WITH DIFFERENTIAL, B - Abnormal; Notable for the following components: Hemoglobin 12.8 (*) RBC Distrib Width 15.7 (*) Leukocytes 14.6 (*) Neutrophils 12.76 (*) Lymphocytes 0.93 (*) All other components within normal limits TROPONIN T, BASELINE, 5TH GEN, P - Abnormal; Notable for the following components: Troponin T, Baseline, 5th gen 55 (*) All other components within normal limits PROTHROMBIN TIME (PT), P - Abnormal; Notable for the following components: Prothrombin Time, P 13.0 (*) All other components within normal limits VENOUS BLOOD GAS W/O COOX - Abnormal; Notable for the following components: pCO2, Venous, B 53 (*) All other components within normal limits TROPONIN T, 2H/6H REFLEX, 5TH GEN, P - Abnormal; Notable for the following components: Troponin T, 2 hr, 5th gen 53 (*) All other components within normal limits IMAGING STUDIES: CT Chest Angiogram and Pulmonary Arteries with IV Contrast Preliminary Result Negative for acute pulmonary embolism. DX Chest AP or PA and Lateral 2 Views Final Result Similar lung predominant reticulations, compatible with interstitial fibrosis. Mild patchy opacities which could represent a infectious/inflammatory process. No pneumothorax or sizable pleural effusion. Left chest wall pacemaker. Aortic calcifications. Degenerative changes of the spine. Brian Vaca M.D. Resident 12/22/24 0342 STRIAL GAS PRODUCTION OPERATOR * Leyla Villanueva R.N. - 12/21/2024 5:25 PM CST Pt reports SOB, described as labored breathing, x1 week. Denies cough and CP. Pt on 2L NC which is baseline. No new leg swelling present. Leyla Villanueva R.N. 12/21/24 1726 STRIAL GAS PRODUCTION OPERATOR documented in this encounter Miscellaneous Notes * Hospital Course - Iliana Vazquez P.A.-C. - 12/24/2024 6:38 AM INDUSTRIAL GAS PRODUCTION OPERATOR Marcos Perez is an 89-year-old male with a history of interstitial lung disease, heart failurewith preserved ejection fraction, eosinophilic asthma, atrial fibrillation on anticoagulation, obstructive sleep apnea, chronic kidney disease, and prior complete heart block with pacemaker, who was admitted for evaluation of worsening shortness of breath and hypoxia. His baseline oxygen requirement prior to this illness was 2 L with CPAP at night and with activity, but none at rest. On admission, he reported a week of progressive dyspnea, labile heart rates, and new continuous oxygen needs, temporally associated with a reduction in his prednisone dose as part of a prolonged steroid taper for interstitial lung disease. Initial evaluation included chest CT angiogram, which was negative for pulmonary embolism and focal pneumonia, and chest radiographs showing reticulations compatible with interstitial fibrosis and mild patchy opacities. Laboratory studies revealed compensatedrespiratory acidosis, mild leukocytosis, and acute kidney injury with creatinine peaking at 1.44, likely related to IV contrast administration for imaging. Pacemaker interrogation and transthoracic echocardiogram were unremarkable, with preserved left ventricular ejection fraction and mildly enlarged right ventricle. Pulmonary Medicine was consulted and recommended a slower prednisone taper, increasing the dose to 30 mg daily for 7 days before resuming the planned reduction to 20 mg daily, given the correlation of symptom exacerbation with steroid dose reduction and absence of infectious or cardiac etiology. He continued PJP prophylaxis with Bactrim and GI prophylaxis with pantoprazole. His home bronchodilators and asthma therapies were maintained, and ambulatory pulse oximetry was planned prior to discharge. Physical and occupational therapy assessments found him to be functioning close to baseline with modified independence in mobility and ADLs, and no further skilled inpatient therapy was recommended. During the admission, his acute kidney injury improved with IV fluids and renally dosed medications. His torsemide dose was increased in the context of heart failure and renal function monitoring, later resumed home dose. Slight increase in creatinine noted this admission and remained stable, likely in the context of ongoing Bactrim for PJP prophylaxis with continued steroids. He remained on therapeutic anticoagulation for atrial fibrillation. No evidence of heart failure exacerbation, arrhythmia, or infection was found. Homegoing oxygen studies with RT revealed no oxygen requirement arrest with 1 L supplemental oxygen with activity. Other chronic issues addressed included obstructive sleep apnea, hyperlipidemia, gastroesophageal reflux disease, depression, prolonged QT interval, and nonobstructive coronary artery disease. His prior adrenal insufficiency and discontinued hydrocortisone were noted as relevant to steroid tapering, with further management deferred to the outpatient setting. He was deemed safe to return to his assisted living facility with support from family and staff, and durable medical equipment needs were coordinated prior to discharge. He remained hemodynamically stable and afebrile and was appropriate for discharge back to his assisted living facility on 12/27/2024. STRIAL GAS PRODUCTION OPERATOR STRIAL GAS PRODUCTION OPERATOR STRIAL GAS PRODUCTION OPERATOR STRIAL GAS PRODUCTION OPERATOR STRIAL GAS PRODUCTION OPERATOR documented in this encounter Plan of Treatment DateTypeDepartmentCare Team (Latest Contact Info)Ddfwzxfgzib15/29/2025 10:15 AM CSTClinical Communication Virtual Review in [place], [place] [address] [place] [phone] 02/12/2025 11:15 AM CSTAppointment Department of Radiology, [facility] in [place], [place] [address] [place] [phone] Lilli Moore M.D. [address] [place] [phone] 02/12/2025 11:50 AM CSTAppointment Department of Laboratory Medicine and Pathology, [facility] in [place], [place] [address] [place] [phone] Lilli Moore M.D. [address] [place] [phone] 02/12/2025 1:30 PM CSTOffice Visit Division of Pulmonary Medicine in [place], [place] [address] [place] [phone] Lilli Moore M.D. 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 Occurrences starting 12/24/2024 until 12/24/2025NameTypePriorityAssociated DiagnosesOrder ScheduleHospital Internal Medicine office visit (clinic) Outpatient ReferralRoutineExpected: 12/31/2024, Expires: 03/29/2026documented as of this encounter Procedures Procedure NamePriorityDate/TimeAssociated DiagnosisCommentsBASIC METABOLIC PANEL, S/RJsosu1512/27/2024 8:57 AM INDUSTRIAL GAS PRODUCTION OPERATOR RENAL FUNCTION PANEL, VPabsctb03/11/2025 8:49 PM INDUSTRIAL GAS PRODUCTION OPERATOR CBC WITH DIFFERENTIAL, FJlrvejz72/11/2025 8:49 PM INDUSTRIAL GAS PRODUCTION OPERATOR MAGNESIUM, YPrqteuj38/11/2025 8:49 PM INDUSTRIAL GAS PRODUCTION OPERATOR BASIC METABOLIC PANEL, S/PSTAT102/24/2024 12:19 PM INDUSTRIAL GAS PRODUCTION OPERATOR RT TO ARRANGE FOR HOME UQKJwqhmvc45/10/2025 11:16 AM CSTUS KIDNEYS BILATERAL WITH BLADDERRAD - Routine (most inpatients and all outpatients)12/24/2024 10:13 AM INDUSTRIAL GAS PRODUCTION OPERATOR DIPSTICK, SOodflid74/10/2025 9:52 AM INDUSTRIAL GAS PRODUCTION OPERATOR SODIUM, RANDOM, UEnilxdt14/10/2025 9:52 AM INDUSTRIAL GAS PRODUCTION OPERATOR MICROSCOPIC YDKKLZSRNNyacrfy10/10/2025 9:52 AM INDUSTRIAL GAS PRODUCTION OPERATOR PH, IXrtluve37/10/2025 9:52 AM INDUSTRIAL GAS PRODUCTION OPERATOR OSMOLALITY, XBagqysq26/10/2025 9:52 AM INDUSTRIAL GAS PRODUCTION OPERATOR CREATININE, RANDOM, QAsirwtq52/10/2025 9:52 AM INDUSTRIAL GAS PRODUCTION OPERATOR URINALYSIS WITH BGKILQZIRSALjfvmum83/10/2025 9:52 AM INDUSTRIAL GAS PRODUCTION OPERATOR CBC WITH DIFFERENTIAL, UJhrtcwx68/09/2025 8:49 PM INDUSTRIAL GAS PRODUCTION OPERATOR BASIC METABOLIC PANEL, S/QZzyihei27/09/2025 8:49 PM INDUSTRIAL GAS PRODUCTION OPERATOR MAGNESIUM, UAwisoau96/09/2025 8:47 PM INDUSTRIAL GAS PRODUCTION OPERATOR RESPIRATORY ASSESS AND MKZMBDiiofak69/09/2025 9:54 AM CSTPATIENT'S OWN CPAP/GTVXEDafazhz01/09/2025 3:54 AM CSTCBC WITH DIFFERENTIAL, PBzruptt31/08/2025 9:29 PM INDUSTRIAL GAS PRODUCTION OPERATOR COMPREHENSIVE METABOLIC PANEL, S/QWnytwwh34/09/2024 9:29 PM INDUSTRIAL GAS PRODUCTION OPERATOR (TTE) 2D ECHO DOPPLER SQMOADwnmvum72/08/2025 3:17 PM INDUSTRIAL GAS PRODUCTION OPERATOR PACER DUAL CHAMBER INTERROGATION WITH PPWSVXOKLNBNnhusev18/08/2025 11:12 AM INDUSTRIAL GAS PRODUCTION OPERATOR CT CHEST ANGIOGRAM AND PULMONARY ARTERIES WITH IV CONTRASTRAD - Semiurgent (Fast; most ED patients; some inpatients)12/22/2024 1:17 AM INDUSTRIAL GAS PRODUCTION OPERATOR IFLU A, B, SARS COV-2, PCR, RAPID,VSTAT102/22/2024 12:36 AM INDUSTRIAL GAS PRODUCTION OPERATOR TROPONIN T, 2H/6H REFLEX, 5TH GEN, AUpqds3112/21/2024 9:44 PM INDUSTRIAL GAS PRODUCTION OPERATOR TROPONIN T, BASELINE, 5TH GEN, PSTAT102/21/2024 6:19 PM INDUSTRIAL GAS PRODUCTION OPERATOR PATIENT IVWSUJOPJX99/07/2025 6:19 PM INDUSTRIAL GAS PRODUCTION OPERATOR VENOUS BLOOD GAS W/O IGJASFTT93/07/2025 6:19 PM INDUSTRIAL GAS PRODUCTION OPERATOR NT-PRO B-TYPE NATRIURETIC PEPTIDE (BNP), SSTAT102/21/2024 6:19 PM INDUSTRIAL GAS PRODUCTION OPERATOR PROTHROMBIN TIME (PT), PSTAT102/21/2024 6:19 PM INDUSTRIAL GAS PRODUCTION OPERATOR CBC WITH DIFFERENTIAL, BSTAT102/21/2024 6:19 PM INDUSTRIAL GAS PRODUCTION OPERATOR BASIC METABOLIC PANEL, S/PSTAT102/21/2024 6:19 PM INDUSTRIAL GAS PRODUCTION OPERATOR DX CHEST AP OR PA AND LATERAL 2 VIEWSRAD - Semiurgent (Fast; most ED patients; some inpatients)12/21/2024 5:57 PM INDUSTRIAL GAS PRODUCTION OPERATOR TGKCNPH7512/21/2024 5:26 PM INDUSTRIAL GAS PRODUCTION OPERATOR documented in this encounter Results * (ABNORMAL) Basic Metabolic Panel (12/27/2024 8:57 AM INDUSTRIAL GAS PRODUCTION OPERATOR)ComponentValueRef RangeTest MethodAnalysis TimePerformed AtPathologist SignaturePotassium, S4.1 3.6 - 5.2 mmol/L102/27/2024 11:01 AM CSTDTLSodium, V522422 - 145 mmol/L 12/27/2024 11:01 AM CSTDTLChloride, S94(L)98 - 107 mmol/L102/27/2024 11:01 AM CSTDTLBicarbonate, S2522 - 29 mmol/L102/27/2024 11:01 AM CSTDTLAnion Gap16(H)7 - 15102/27/2024 11:01 AM CSTDTLBUN (Blood Urea Nitrogen), S38(H)8 - 24 mg/dL 12/27/2024 11:01 AM CSTDTLCreatinine1.57(H)0.74 - 1.35 mg/dL12/27/2024 11:01 AM CSTDTLEstimated GFR (eGFR)42(L)>=60 mL/min/BSA12/27/2024 11:01 AM CSTDTL Comment: Estimated GFR calculated using the 2020 CKD_EPI creatinine equation. Calcium, Total, S8.5(L)8.8 - 10.2 mg/dL12/27/2024 11:01 AM CSTDTLGlucose, S8670 - 140 mg/dL12/27/2024 11:01 AM CSTDTLSpecimen (Source)Anatomical Location / LateralityCollection Method / VolumeCollection TimeReceived TimeBlood (Blood, Venous)12/27/2024 8:57 AM CST12/27/2024 10:14 AM INDUSTRIAL GAS PRODUCTION OPERATOR Narrative Authorizing ProviderResult TypeResult StatusBethangela Vazquez P.A.-C.LAB BLOOD ADD-ONFinal ResultPerforming OrganizationAddressCity/State/ZIP CodePhone Number [facility] [address] [place] [address], [place] DTL [facility] [address] [place] [address] * (ABNORMAL) Renal Function Panel (12/25/2024 8:49 PM INDUSTRIAL GAS PRODUCTION OPERATOR)ComponentValueRef RangeTest MethodAnalysis TimePerformed AtPathologist SignaturePotassium, S4.1 3.6 - 5.2 mmol/L102/25/2024 10:08 PM CSTDTLSodium, U249294 - 145 mmol/L 12/25/2024 10:08 PM CSTDTLChloride, S92(L)98 - 107 mmol/L102/25/2024 10:08 PM CSTDTLBicarbonate, S2922 - 29 mmol/L102/25/2024 10:08 PM CSTDTLAnion Zqi649 - 15102/25/2024 10:08 PM CSTDTLBUN (Blood Urea Nitrogen), S31(H)8 - 24 mg/dL 12/25/2024 10:08 PM CSTDTLCreatinine1.69(H)0.74 - 1.35 mg/dL12/25/2024 10:08 PM CSTDTLEstimated GFR (eGFR)39(L)>=60 mL/min/BSA12/25/2024 10:08 PM CSTDTL Comment: Estimated GFR calculated using the 2020 CKD_EPI creatinine equation. Calcium, Total, S9.28.8 - 10.2 mg/dL12/25/2024 10:08 PM CSTDTLGlucose, E39323 - 140 mg/dL12/25/2024 10:08 PM CSTDTLAlbumin, S3.83.5 - 5.0 g/dL12/25/2024 10:08 PM CSTDTLPhosphorus (Inorganic), S4.42.5 - 4.5 mg/dL12/25/2024 10:08 PM CSTDTL Specimen (Source)Anatomical Location / LateralityCollection Method / Volume Collection TimeReceived TimeBlood (Blood, Venous)12/25/2024 8:49 PM INDUSTRIAL GAS PRODUCTION OPERATOR 12/25/2024 9:20 PM INDUSTRIAL GAS PRODUCTION OPERATOR Narrative Authorizing ProviderResult TypeResult StatusBechani Vazquez P.A.-C.LAB BLOOD ADD-ONFinal ResultPerforming OrganizationAddressCity/State/ZIP CodePhone Number [facility] [address] [place] [address], [place] [facility] [address] [place] [address] * Magnesium (12/25/2024 8:49 PM INDUSTRIAL GAS PRODUCTION OPERATOR)ComponentValueRef RangeTest MethodAnalysis TimePerformed AtPathologist SignatureMagnesium, S2.31.7 - 2.3 mg/dL12/25/2024 10:08 PM CSTDTLSpecimen (Source)Anatomical Location / LateralityCollection Method / VolumeCollection TimeReceived TimeBlood (Blood, Venous)12/25/2024 8:49 PM CST12/25/2024 9:20 PM INDUSTRIAL GAS PRODUCTION OPERATOR Narrative Authorizing ProviderResult TypeResult StatusBethangela Vazquez P.A.-C.LAB BLOOD ADD-ONFinal ResultPerforming OrganizationAddressCity/State/ZIP CodePhone Number [facility] [address] [place] [address], [facility] DTL [facility] [address] [place] [address] * (ABNORMAL) CBC with Differential, Blood (12/25/2024 8:49 PM INDUSTRIAL GAS PRODUCTION OPERATOR)ComponentValue Ref RangeTest MethodAnalysis TimePerformed AtPathologist SignatureHemoglobin 12.5(L)13.2 - 16.6 g/dL12/25/2024 9:32 PM EHFCEDTihsmtkxrp26.438.3 - 48.6 % 12/25/2024 9:32 PM CSTDTLErythrocytes4.624.35 - 5.65 x10(12)/L102/25/2024 9:32 PM QGQUJIPUE02.378.2 - 97.9 fL12/25/2024 9:32 PM CSTDTLRBC Distrib Width15.9 (H)11.8 - 14.5 %12/25/2024 9:32 PM CSTDTLPlatelet Aycaz520248 - 317 x10(9)/L 12/25/2024 9:32 PM KEQBEPGtahhsrbgj83.5(H)3.4 - 9.6 x10(9)/L102/25/2024 9:32 PM QYDTUBEfbxcsqzqpa14.09(H)1.56 - 6.45 x10(9)/L102/25/2024 9:32 PM CSTDHPM Lymphocytes0.63(L)0.95 - 3.07 x10(9)/L102/25/2024 9:32 PM CSTDTLMonocytes0.75 0.26 - 0.81 x10(9)/L102/25/2024 9:32 PM CSTDTLEosinophils<0.030.03 - 0.48 x10(9)/L102/25/2024 9:32 PM CSTDTLBasophils0.030.01 - 0.08 x10(9)/L102/25/2024 9:32 PM CSTDTLSpecimen (Source)Anatomical Location / LateralityCollection Method / VolumeCollection TimeReceived TimeBlood (Blood, Venous)12/25/2024 8:49 PM CST12/25/2024 9:20 PM INDUSTRIAL GAS PRODUCTION OPERATOR Narrative Authorizing ProviderResult TypeResult StatusBechani Vazquez P.A.-C.LAB BLOOD ADD-ONFinal ResultPerforming OrganizationAddressCity/State/ZIP CodePhone Number [facility] [address] [place] [address], [facility] DTL [facility] [address] [place] [address] * (ABNORMAL) Basic Metabolic Panel (12/24/2024 12:19 PM INDUSTRIAL GAS PRODUCTION OPERATOR)ComponentValueRef RangeTest MethodAnalysis TimePerformed AtPathologist SignaturePotassium, P4.1 3.6 - 5.2 mmol/L102/24/2024 12:45 PM CSTSTMASodium, U808634 - 145 mmol/L 12/24/2024 12:45 PM CSTSTMAChloride, P96(L)98 - 107 mmol/L102/24/2024 12:45 PM CSTSTMABicarbonate, P32(H)22 - 29 mmol/L102/24/2024 12:45 PM CSTSTMAAnion Gap, P107 - 15102/24/2024 12:45 PM CSTSTMABUN (Blood Urea Nitrogen), P30(H)8 - 24 mg/dL12/24/2024 12:45 PM CSTSTMACreatinine1.300.74 - 1.35 mg/dL12/24/2024 12:45 PM CSTSTMAEstimated GFR (eGFR)53(L)>=60 mL/min/BSA12/24/2024 12:45 PM CSTSTMAComment: Estimated GFR calculated using the 2020 CKD_EPI creatinine equation. Calcium, Total, P9.08.8 - 10.2 mg/dL12/24/2024 12:45 PM CSTSTMAGlucose, P164(H) 70 - 140 mg/dL12/24/2024 12:45 PM CSTSTMASpecimen (Source)Anatomical Location / LateralityCollection Method / VolumeCollection TimeReceived TimeBlood (Blood, Venous)12/24/2024 12:19 PM CST12/24/2024 12:27 PM INDUSTRIAL GAS PRODUCTION OPERATOR Narrative Authorizing ProviderResult TypeResult StatusMickita Mar P.A.-C., P.A. LAB BLOOD ADD-ONFinal ResultPerforming OrganizationAddressCity/State/ZIP Code Phone Number [facility] [address] [place] [address], [facility] [address] [place] [address] * US Kidneys Bilateral with Bladder (12/24/2024 10:13 AM INDUSTRIAL GAS PRODUCTION OPERATOR)Anatomical Region LateralityModalityAbdomen, Renal, Ultrasound RST LOS, Ultrasound ARZ LOS, Ultrasound FLA LOSBilateralUltrasoundSpecimen (Source)Anatomical Location / LateralityCollection Method / VolumeCollection TimeReceived Time Impressions 12/24/2024 10:40 AM INDUSTRIAL GAS PRODUCTION OPERATOR 1. Normal kidneys. 2. Diffuse hepatic steatosis. Narrative 12/24/2024 10:40 AM INDUSTRIAL GAS PRODUCTION OPERATOR EXAM: US KIDNEYS BILATERAL WITH BLADDER HISTORY: Acute kidney injury COMPARISON: None. FINDINGS: Right kidney: 9.6 cm Cortical thickness: Normal. ?? Parenchymal echogenicity: Normal. Collecting system: No hydronephrosis. Masses: None detected. Left kidney: 9.9 cm Cortical thickness: Normal. ?? Parenchymal echogenicity: Normal. Collecting system: No hydronephrosis. Masses: None detected. Bladder: Normal. Other: Of incidental note is diffuse increased hepatic echogenicity consistent with diffuse hepaticsteatosis. Procedure Note Era Verde M.D. - 12/24/2024 EXAM: US KIDNEYS BILATERAL WITH BLADDER HISTORY: Acute kidney injury COMPARISON: None. FINDINGS: Right kidney: 9.6 cm Cortical thickness: Normal. Parenchymal echogenicity: Normal. Collecting system: No hydronephrosis. Masses: None detected. Left kidney: 9.9 cm Cortical thickness: Normal. Parenchymal echogenicity: Normal. Collecting system: No hydronephrosis. Masses: None detected. Bladder: Normal. Other: Of incidental note is diffuse increased hepatic echogenicityconsistent with diffuse hepatic steatosis. IMPRESSION: 1. Normal kidneys. 2. Diffuse hepatic steatosis. Authorizing ProviderResult TypeResult StatusMarietta Mar P.A.-C., P.A. IMG US PROCEDURESFinal Result * Dipstick, Urine (12/24/2024 9:52 AM INDUSTRIAL GAS PRODUCTION OPERATOR)ComponentValueRef RangeTest Method Analysis TimePerformed AtPathologist SignatureHemoglobin, QL, UNegative Gxectrmw90/10/2025 12:01 PM CSTDTLLeukocyte Esterase, UNegativeNegative 12/24/2024 12:01 PM CSTDTLNitrite, KTfrepfotQdlmaxms90/10/2025 12:01 PM CSTDTL Ketone, UNegativeNegative mg/dL12/24/2024 12:01 PM CSTDTLGlucose, UNegative Negative mg/dL12/24/2024 12:01 PM CSTDTLSpecimen (Source)Anatomical Location / LateralityCollection Method / VolumeCollection TimeReceived TimeUrine 12/24/2024 9:52 AM CST12/24/2024 11:29 AM INDUSTRIAL GAS PRODUCTION OPERATOR Narrative Authorizing ProviderResult TypeResult StatusMarietta Mar P.A.-C., P.A. LAB URINE ORDERABLESFinal ResultPerforming OrganizationAddressCity/State/ZIP CodePhone Number [facility] [address] [place] [address], [place] D[place] [facility] [address] [place] [address] * pH, Urine (12/24/2024 9:52 AM INDUSTRIAL GAS PRODUCTION OPERATOR)ComponentValueRef RangeTest MethodAnalysis TimePerformed AtPathologist SignaturepH, U5.84.5 - 8.011 12:27 PM INDUSTRIAL GAS PRODUCTION OPERATOR DTLSpecimen (Source)Anatomical Location / LateralityCollection Method / Volume Collection TimeReceived ZsbgYxrqd44/10/2025 9:52 AM CST12/24/2024 11:29 AM INDUSTRIAL GAS PRODUCTION OPERATOR Narrative Authorizing ProviderResult TypeResult StatusMarietta Mar P.A.-C., P.A. LAB URINE ORDERABLESFinal ResultPerforming OrganizationAddressCity/State/[place] [address] * Osmolality, Urine (12/24/2024 9:52 AM INDUSTRIAL GAS PRODUCTION OPERATOR)ComponentValueRef RangeTest Method Analysis TimePerformed AtPathologist SignatureOsmolality, U665087 - 1150 mOsm/kg12/24/2024 12:27 PM CSTDTLSpecimen (Source)Anatomical Location / LateralityCollection Method / VolumeCollection TimeReceived TimeUrine 12/24/2024 9:52 AM CST12/24/2024 11:29 AM INDUSTRIAL GAS PRODUCTION OPERATOR Narrative Authorizing ProviderResult TypeResult StatusMarietta Mar P.A.-C., P.A. LAB URINE ORDERABLESFinal ResultPerforming OrganizationAddressCity/State/[place] [address] * Microscopic Automated (12/24/2024 9:52 AM INDUSTRIAL GAS PRODUCTION OPERATOR)ComponentValueRef RangeTest MethodAnalysis TimePerformed AtPathologist DkmkacfxyIxnrgmmqllEkmdgr77/10/2025 12:01 PM CSTDTLRBCNone Seen<3 /hpf12/24/2024 12:01 PM CSTDTLWBCNone Seen/hpf 12/24/2024 12:01 PM CSTDTLComment: ----REFERENCE VALUE---- <4 (Males) <11 (Females) Specimen (Source)Anatomical Location / LateralityCollection Method / Volume Collection TimeReceived OwbeFmdch75/10/2025 9:52 AM CST12/24/2024 11:29 AM INDUSTRIAL GAS PRODUCTION OPERATOR Narrative Authorizing ProviderResult TypeResult StatusMarietta Mar P.A.-C., P.A. LAB URINE ORDERABLESFinal ResultPerforming OrganizationAddressCity/State/ZIP CodePhone Number [facility] [address] [place] [address], [place] [address] * Urinalysis, with Microscopic: Urine, Midstream (12/24/2024 9:52 AM INDUSTRIAL GAS PRODUCTION OPERATOR) ComponentValueRef RangeTest MethodAnalysis TimePerformed AtPathologist SignatureSourceUrine, Urine, Brlpojdab16/10/2025 11:29 AM CSTDTLColor, UYellow 12/24/2024 11:29 AM CSTDTLClarity, KJwama5312/24/2024 11:29 AM CSTDTLProtein, U5 <26 mg/dL12/24/2024 12:34 PM CSTDTLProtein/Osmolality0.14<0.42 ratio12/24/2024 12:34 PM CSTDTLPredicted 24 HR Protein, U148<229 mg/24 h102/24/2024 12:34 PM CSTDTLPredicted Tocpx68-080rn/24 02/24/2024 12:34 PM CSTDTLSpecimen (Source) Anatomical Location / LateralityCollection Method / VolumeCollection Time Received TimeUrine (Urine, Midstream)12/24/2024 9:52 AM CST12/24/2024 11:29 AM INDUSTRIAL GAS PRODUCTION OPERATOR Narrative Authorizing ProviderResult TypeResult StatusMickita Mar P.A.-C., P.A. LAB URINE ORDERABLESFinal ResultPerforming OrganizationAddressCity/State/ZIP CodePhone Number [facility] [address] [place] [address], [facility] [address] [place] [address] * Sodium, Random, Urine (12/24/2024 9:52 AM INDUSTRIAL GAS PRODUCTION OPERATOR)ComponentValueRef RangeTest MethodAnalysis TimePerformed AtPathologist SignatureSodium, Random, F97nggt/L 12/24/2024 12:41 PM CSTDTLComment: ----REFERENCE VALUE---- Random urine sodium may be interpreted in conjunction with serum sodium, using both values to calculate fractional excretion of sodium. Specimen (Source)Anatomical Location / LateralityCollection Method / Volume Collection TimeReceived TimeUrine (Urine, Midstream)12/24/2024 9:52 AM INDUSTRIAL GAS PRODUCTION OPERATOR 12/24/2024 11:29 AM INDUSTRIAL GAS PRODUCTION OPERATOR Narrative Authorizing ProviderResult TypeResult StatusMarietta Mar P.A.-C., P.A. LAB URINE ORDERABLESFinal ResultPerforming OrganizationAddressCity/State/ZIP CodePhone Number [facility] [address] [place] [address], [facility] [address] [place] [address] * Creatinine, Random, Urine (12/24/2024 9:52 AM INDUSTRIAL GAS PRODUCTION OPERATOR)ComponentValueRef RangeTest MethodAnalysis TimePerformed AtPathologist SignatureCreatinine, Random, U5916 - 326 mg/dL12/24/2024 12:34 PM CSTDTLSpecimen (Source)Anatomical Location / LateralityCollection Method / VolumeCollection TimeReceived TimeUrine (Urine, Midstream)12/24/2024 9:52 AM CST12/24/2024 11:29 AM INDUSTRIAL GAS PRODUCTION OPERATOR Narrative Authorizing ProviderResult TypeResult StatusMarietta Mar P.A.-C., P.A. LAB URINE ORDERABLESFinal ResultPerforming OrganizationAddressCity/State/ZIP CodePhone Number [facility] [address] [place] [address], [address] [address] * (ABNORMAL) Basic Metabolic Panel (12/23/2024 8:49 PM INDUSTRIAL GAS PRODUCTION OPERATOR)ComponentValueRef RangeTest MethodAnalysis TimePerformed AtPathologist SignaturePotassium, S4.1 3.6 - 5.2 mmol/L102/23/2024 10:26 PM CSTDTLSodium, O377249 - 145 mmol/L 12/23/2024 10:26 PM CSTDTLChloride, S94(L)98 - 107 mmol/L102/23/2024 10:26 PM CSTDTLBicarbonate, S2822 - 29 mmol/L102/23/2024 10:26 PM CSTDTLAnion Tya382 - 15102/23/2024 10:26 PM CSTDTLBUN (Blood Urea Nitrogen), S28(H)8 - 24 mg/dL 12/23/2024 10:26 PM CSTDTLCreatinine1.61(H)0.74 - 1.35 mg/dL12/23/2024 10:26 PM CSTDTLEstimated GFR (eGFR)41(L)>=60 mL/min/BSA12/23/2024 10:26 PM CSTDTL Comment: Estimated GFR calculated using the 2020 CKD_EPI creatinine equation. Calcium, Total, S8.98.8 - 10.2 mg/dL12/23/2024 10:26 PM CSTDTLGlucose, S176(H)70 - 140 mg/dL12/23/2024 10:26 PM CSTDTLSpecimen (Source)Anatomical Location / LateralityCollection Method / VolumeCollection TimeReceived TimeBlood (Blood, Venous)12/23/2024 8:49 PM CST12/23/2024 9:54 PM INDUSTRIAL GAS PRODUCTION OPERATOR Narrative Authorizing ProviderResult TypeResult StatusMickita Mar P.A.-C., P.A. LAB BLOOD ADD-ONFinal ResultPerforming OrganizationAddressCity/State/ZIP Code Phone Number [facility] [address] [place] [address], [facility] DTL [facility] [address] [place] [address] * (ABNORMAL) CBC with Differential, Blood (12/23/2024 8:49 PM INDUSTRIAL GAS PRODUCTION OPERATOR)ComponentValue Ref RangeTest MethodAnalysis TimePerformed AtPathologist SignatureHemoglobin 12.2(L)13.2 - 16.6 g/dL12/23/2024 10:23 PM PMTESRVfxtbymbpk69.7(L)38.3 - 48.6 %12/23/2024 10:23 PM CSTDTLErythrocytes4.384.35 - 5.65 x10(12)/L102/23/2024 10:23 PM HXKNMUEUI53.178.2 - 97.9 fL12/23/2024 10:23 PM CSTDTLRBC Distrib Width15.6(H)11.8 - 14.5 %12/23/2024 10:23 PM CSTDTLPlatelet Tcmrn309882 - 317 x10(9)/L102/23/2024 10:23 PM DHQMNWOchejgjsgk01.4(H)3.4 - 9.6 x10(9)/L 12/23/2024 10:23 PM YIJPRCTdakbiaiusk69.05(H)1.56 - 6.45 x10(9)/L102/23/2024 10:23 PM CSTDHPMLymphocytes0.86(L)0.95 - 3.07 x10(9)/L102/23/2024 10:23 PM INDUSTRIAL GAS PRODUCTION OPERATOR DTLMonocytes0.460.26 - 0.81 x10(9)/L102/23/2024 10:23 PM CSTDTLEosinophils<0.03 0.03 - 0.48 x10(9)/L102/23/2024 10:23 PM CSTDTLBasophils<0.030.01 - 0.08 x10(9)/02/23/2024 10:23 PM CSTDTLSpecimen (Source)Anatomical Location / LateralityCollection Method / VolumeCollection TimeReceived TimeBlood (Blood, Venous)12/23/2024 8:49 PM CST12/23/2024 9:55 PM INDUSTRIAL GAS PRODUCTION OPERATOR Narrative Authorizing ProviderResult TypeResult StatusMickita Mar P.A.-C., P.A. LAB BLOOD ADD-ONFinal ResultPerforming OrganizationAddressCity/State/ZIP Code Phone Number [facility] [address] [place] [address], [facility] DTL [facility] [address] [place] [address] [facility] [address] [place] [address] * Magnesium (12/23/2024 8:47 PM INDUSTRIAL GAS PRODUCTION OPERATOR)ComponentValueRef RangeTest MethodAnalysis TimePerformed AtPathologist SignatureMagnesium, S2.31.7 - 2.3 mg/dL12/25/2024 2:30 PM CSTDTLSpecimen (Source)Anatomical Location / LateralityCollection Method / VolumeCollection TimeReceived TimeBlood (Blood, Venous)12/23/2024 8:47 PM CST12/25/2024 2:09 PM INDUSTRIAL GAS PRODUCTION OPERATOR Narrative Authorizing ProviderResult TypeResult StatusBechani Vazquez P.A.-C.LAB BLOOD ADD-ONFinal ResultPerforming OrganizationAddressCity/State/ZIP CodePhone Number [facility] [address] [place] [address], [place] D[place] [facility] [address] [place] [address] * (ABNORMAL) Comprehensive Metabolic Panel (12/22/2024 9:29 PM INDUSTRIAL GAS PRODUCTION OPERATOR)Component ValueRef RangeTest MethodAnalysis TimePerformed AtPathologist Signature Potassium, S4.13.6 - 5.2 mmol/L102/22/2024 10:41 PM CSTDTLSodium, D408418 - 145 mmol/L102/22/2024 10:41 PM CSTDTLChloride, S95(L)98 - 107 mmol/L102/22/2024 10:41 PM CSTDTLBicarbonate, S2922 - 29 mmol/L102/22/2024 10:41 PM CSTDTLAnion Ehk615 - 15102/22/2024 10:41 PM CSTDTLBUN (Blood Urea Nitrogen), S25(H)8 - 24 mg/dL12/22/2024 10:41 PM CSTDTLCreatinine1.39(H)0.74 - 1.35 mg/dL12/22/2024 10:41 PM CSTDTLEstimated GFR (eGFR)49(L)>=60 mL/min/BSA12/22/2024 10:41 PM INDUSTRIAL GAS PRODUCTION OPERATOR DTLComment: Estimated GFR calculated using the 2020 CKD_EPI creatinine equation. Calcium, Total, S8.6(L)8.8 - 10.2 mg/dL12/22/2024 10:41 PM CSTDTLGlucose, I58113 - 140 mg/dL12/22/2024 10:41 PM CSTDTLProtein, Total, S5.1(L)6.3 - 7.9 g/dL 12/22/2024 10:41 PM CSTDTLAlbumin, S3.53.5 - 5.0 g/dL12/22/2024 10:41 PM CSTDTL Aspartate Aminotransferase (AST), S288 - 48 U/L102/22/2024 10:41 PM CSTDTL Alkaline Phosphatase, S7640 - 129 U/L102/22/2024 10:41 PM CSTDTLAlanine Aminotransferase (ALT), S427 - 55 U/L102/22/2024 10:41 PM CSTDTLBilirubin, Total, S0.20.0 - 1.2 mg/dL12/22/2024 10:41 PM CSTDTLSpecimen (Source)Anatomical Location / LateralityCollection Method / VolumeCollection TimeReceived TimeBlood (Blood, Venous)12/22/2024 9:29 PM CST12/22/2024 10:15 PM INDUSTRIAL GAS PRODUCTION OPERATOR Narrative Authorizing ProviderResult TypeResult StatusMickita Mar P.A.-C., P.A. LAB BLOOD ADD-ONFinal ResultPerforming OrganizationAddressCity/State/ZIP Code Phone Number [place] [address] [place] [address], [facility] DTL [facility] [address] [place] [address] * (ABNORMAL) CBC with Differential, Blood (12/22/2024 9:29 PM INDUSTRIAL GAS PRODUCTION OPERATOR)ComponentValue Ref RangeTest MethodAnalysis TimePerformed AtPathologist SignatureHemoglobin 11.5(L)13.2 - 16.6 g/dL12/22/2024 10:26 PM OCDGOJLntdwsilui06.1(L)38.3 - 48.6 %12/22/2024 10:26 PM CSTDTLErythrocytes4.364.35 - 5.65 x10(12)/L102/22/2024 10:26 PM YKIMQMSQO75.178.2 - 97.9 fL12/22/2024 10:26 PM CSTDTLRBC Distrib Width15.3(H)11.8 - 14.5 %12/22/2024 10:26 PM CSTDTLPlatelet Yijts683533 - 317 x10(9)/L102/22/2024 10:26 PM WXRPFLBdviwumopp62.2(H)3.4 - 9.6 x10(9)/L 12/22/2024 10:26 PM TASSZADarhqysvwcr08.74(H)1.56 - 6.45 x10(9)/L102/22/2024 10:26 PM CSTDHPMLymphocytes0.72(L)0.95 - 3.07 x10(9)/L102/22/2024 10:26 PM INDUSTRIAL GAS PRODUCTION OPERATOR DTLMonocytes0.670.26 - 0.81 x10(9)/L102/22/2024 10:26 PM CSTDTLEosinophils<0.03 0.03 - 0.48 x10(9)/L102/22/2024 10:26 PM CSTDTLBasophils<0.030.01 - 0.08 x10(9)/L102/22/2024 10:26 PM CSTDTLSpecimen (Source)Anatomical Location / LateralityCollection Method / VolumeCollection TimeReceived TimeBlood (Blood, Venous)12/22/2024 9:29 PM CST12/22/2024 10:15 PM INDUSTRIAL GAS PRODUCTION OPERATOR Narrative Authorizing ProviderResult TypeResult StatusMickita Mar P.A.-C., P.A. LAB BLOOD ADD-ONFinal ResultPerforming OrganizationAddressCity/State/ZIP Code Phone Number [facility] [address] [place] [address], [facility] DTL [facility] [address] [place] [address] [facility] [address] [place] [address] * (TTE) 2D ECHO DOPPLER COLOR (12/22/2024 3:17 PM INDUSTRIAL GAS PRODUCTION OPERATOR)ComponentValueRef Range Test MethodAnalysis TimePerformed AtPathologist SignatureEjection Zzplruib92UD CV EIMSLV End-Diastolic Pncjcedb37TR CV EIMSLV End-Systolic Kqmkngmm71EG CV EIMSLeft ventricular stroke volume jvgfq25LU CV EIMSCardiac Output7.17MC CV EIMSCardiac Index3.66MC CV EIMSTricuspid Annular S???0.15MC CV EIMSTR Vmax2.87 MC CV EIMSEstimated RA Pressure (Echo RAP)5MC CV EIMSRV Systolic Pressure (with Echo RAP)38MC CV EIMSAV mean ijgniyeu5MS CV EIMSAortic valve area2.3MC CV EIMSAortic Valve Dimensionless Index0.55MC CV EIMSMV mean efocckgj3MU CV EIMSAortic Valve Systolic Peak Lydynkiq9AN CV EIMSAnatomical RegionLaterality ModalityEchocardiographySpecimen (Source)Anatomical Location / Laterality Collection Method / VolumeCollection TimeReceived Time12/22/2024 2:16 PM INDUSTRIAL GAS PRODUCTION OPERATOR Impressions 12/22/2024 3:35 PM INDUSTRIAL GAS PRODUCTION OPERATOR Echo performed at the patient's bedside. Echocardiogram performed per left ventricular function protocol. LEFT VENTRICLE:Normal left ventricular chamber size. Calculated 2-D linear left ventricular ejection fraction 65%. Abnormal ventricular septal motion due to pacing. Indeterminate left ventricular filling pressure. RIGHT VENTRICLE:Mildly enlarged right ventricular chamber size. Normal right ventricular systolic function. Right ventricular systolic pressure 38 mmHg (right atrial pressure of 5 mmHg). ATRIA:Enlarged left atrial size by visual estimate. Enlarged right atrial size by visual estimate. CARDIAC VALVES:Sclerotic aortic valve. Trivial aortic valve regurgitation. Sclerotic mitral valve. Moderately calcified mitral annulus. Mitral valve diastolic mean Doppler gradient 7 mmHg (heart rate80 BPM). Trivial mitral valve regurgitation. Mildly thickened tricuspid valve. Mild tricuspid valve regurgitation. OTHER ECHO FINDINGS:Small inferior vena cava size with normal inspiratory collapse (>50%). No intracardiac mass or thrombus, but the left atrial appendage cannot be visualized adequately with transthoracic echo to exclude thrombus in this location. Device lead (s) identified in right atrium and right ventricle. Prominent ??epicardial fat layer. No ??pericardial effusion. For the complete report, see the Order-Level Documents. Narrative 12/22/2024 3:35 PM [employer] For the complete report, see the Order-Level Documents. Hemodynamics Heart Rate: 89 BPM Blood Pressure: 112 / 60 mmHg ECG: Sinus rhythm with ectopics, Dual Chamber Pacemaker Final Impressions 1. Normal left ventricular chamber size, calculated 2-D linear ejection fraction 65%. 2. Mildly enlarged right ventricular chamber size, normal systolic function, right ventricular systolic pressure 38 mmHg (right atrial pressure of 5 mmHg). 3. Moderately calcified mitral annulus. Mean diastolic gradient 7 mmHg (heart rate 80 bpm). Trivialmitral valve regurgitation. 4. No ??pericardial effusion. 5. Compared to the report of 09/12/2023 the following changes have occurred: the mean diastolic gradient through the mitral valve has increased (but at a higher heart rate), the regional wall motion abnormalities are not as pronounce on today's study, and left ventricular ejection fraction has improved. Procedure Note Robert Heck M.D. - 12/22/2024 For the complete report, see the Order-Level Documents. Hemodynamics Heart Rate: 89 BPM Blood Pressure: 112 / 60 mmHg ECG: Sinus rhythm with ectopics, Dual Chamber Pacemaker Final Impressions 1. Normal left ventricular chamber size, calculated 2-D linear ejectionfraction 65%. 2. Mildly enlarged right ventricular chamber size, normal systolicfunction, right ventricular systolic pressure 38 mmHg (right atrialpressure of 5 mmHg). 3. Moderately calcified mitral annulus. Mean diastolic gradient 7 mmHg(heart rate 80 bpm). Trivial mitral valve regurgitation. 4. No pericardial effusion. 5. Compared to the report of 09/12/2023 the following changes haveoccurred: the mean diastolic gradient through the mitral valve hasincreased (but at a higher heart rate), the regional wall motionabnormalities are not as pronounce on today's study, and left ventricularejection fraction has improved. Findings Echo performed at the patient's bedside. Echocardiogram performed per left ventricular function protocol. LEFT VENTRICLE:Normal left ventricular chamber size. Calculated 2-D linearleft ventricular ejection fraction 65%. Abnormal ventricular septal motiondue to pacing. Indeterminate left ventricular filling pressure. RIGHT VENTRICLE:Mildly enlarged right ventricular chamber size. Normalright ventricular systolic function. Right ventricular systolic wmepddaf93 mmHg (right atrial pressure of 5 mmHg). ATRIA:Enlarged left atrial size by visual estimate. Enlarged right atrialsize by visual estimate. CARDIAC VALVES:Sclerotic aortic valve. Trivial aortic valve regurgitation. Sclerotic mitral valve. Moderately calcified mitral annulus. Mitral valve diastolic mean Doppler gradient 7 mmHg (heart rate 80 BPM). Trivial mitralvalve regurgitation. Mildly thickened tricuspid valve. Mild tricuspidvalve regurgitation. OTHER ECHO FINDINGS:Small inferior vena cava size with normal inspiratory collapse (>50%). No intracardiac mass or thrombus, but the left atrialappendage cannot be visualized adequately with transthoracic echo toexclude thrombus in this location. Device lead (s) identified in rightatrium and right ventricle. Prominent epicardial fat layer. Nopericardial effusion. For the complete report, see the Order-Level Documents. Authorizing ProviderResult TypeResult StatusMicheljames Mar P.A.-C., P.A. CV ECHO PROCEDURESFinal Result * PACER DUAL CHAMBER INTERROGATION WITH PROGRAMMING (12/22/2024 11:12 AM [facility]) ComponentValueRef RangeTest MethodAnalysis TimePerformed AtPathologist SignaturePacer DependentyesFOUNDATION LAB SYSTEMAnticoagulantOn Anticoagulant [facility] SYSTEMDate Time Interrogation [id number] LAB SYSTEMImplantable Pulse Generator ManufacturerMedtronicFOUNDATION LAB SYSTEMImplantable Pulse Generator TypePacemakerFOUNDATION LAB SYSTEM Implantable Pulse Generator ModelAzure XT MRI [id number] LAB SYSTEM Implantable Pulse Generator Serial [id number] LAB SYSTEM Implantable Pulse Generator Implant [id number] LAB SYSTEMBattery Voltage3.010FOUNDATION LAB SYSTEMBattery NUCLEAR REACTOR ENGINEER Trigger2.630[facility]OUNDATION LAB SYSTEM Battery StatusOKFOUNDATION LAB SYSTEMBrady Statistic RA Percent Paced15.50 [facility] LAB SYSTEMBrady Statistic RV Percent Paced99.93FOUNDATION LAB SYSTEMAtrial Tachy Statistic AT/AF [place] Percent0.00FOUNDATION LAB SYSTEMLead Channel Sensing Intrinsic Amplitude0.800FOUNDATION LAB SYSTEMLead Channel Setting Sensing Sensitivity0.30FOUNDATION LAB SYSTEMLead Channel Impedance Mkerq321LPVUCBAEGR LAB SYSTEMLead Channel Pacing Threshold Amplitude1.000 [facility] LAB SYSTEMLead Channel Pacing Threshold Pulse Width0.4FOUNDATION LAB SYSTEMLead Channel Measurements Date and [id number] LAB SYSTEM Lead Channel Setting Pacing Amplitude2.250FOUNDATION LAB SYSTEMLead Channel Setting Pacing Pulse Width0.4FGREENE COUNTY HOSPITALATION LAB SYSTEMLead Channel Setting Sensing Sensitivity2.80FOUNDATION LAB SYSTEMLead Channel Impedance Lqqsl581HFPPYPFYUT LAB SYSTEMLead Channel Pacing Threshold Amplitude1.250FOUNDATION LAB SYSTEM Lead Channel Pacing Threshold Pulse Width0.4FOUNDATION LAB SYSTEMLead Channel Measurements Date and [id number] LAB SYSTEMLead Channel Setting Pacing Amplitude2.500FOUNDATION LAB SYSTEMLead Channel Setting Pacing Pulse Width0.4FOUNDATION LAB SYSTEMBrady Setting Mode (NBG Code)DDDRFOUNDATION LAB SYSTEMVentricular chambers paced during [employer] pacing.RA/RVFOUNDATION LAB SYSTEM Shahid Setting Lower Rate Tanfl54DKTWTAGWGH LAB SYSTEMBrady Setting AT Mode Switch Slyc257AZBLSYZNHP LAB SYSTEMBrady Setting Maximum Tracking Udxn907 [facility] LAB SYSTEMBrady Setting Maximum Sensor Wiyp679CUMVYILDEP LAB SYSTEM Shahid Setting PAV Kxdav910KHCZIURAZP LAB SYSTEMBrady Setting MEGHAN Qhrxr673 FOUNDATION LAB SYSTEMZone Setting Type CategoryVT MonitorFOUNDATION LAB SYSTEM Murj Rate 1167FOUNDATION LAB SYSTEMZone Setting StatusMonitorFOUNDATION LAB SYSTEMMurj Zone KM7JYXHNWPZRU LAB SYSTEMImplantable Lead ManufacturerMedtronic [facility] LAB SYSTEMImplantable Lead Pvxwm3426O CapSure SPFOUNDATION LAB SYSTEMImplantable Lead LocationRight VentricleFOUNDATION LAB SYSTEMImplantable Lead Connection StatusConnectedFOUNDATION LAB SYSTEMImplantable Lead Serial [id number] LAB SYSTEMImplantable Lead Implant [id number] [facility] LAB SYSTEMImplantable Lead Special FunctionLead length: 52.00 cm [facility] LAB SYSTEMImplantable Lead ManufacturerMedtronicFOUNDATION LAB SYSTEMImplantable Lead Klczb7849M CapSure SPFOUNDATION LAB SYSTEMImplantable Lead LocationRight AtriumFOUNDATION LAB SYSTEMImplantable Lead Connection StatusConnectedFOUNDATION LAB SYSTEMImplantable Lead Serial [id number] [facility] SYSTEMImplantable Lead Implant [id number] LAB SYSTEMImplantable Lead Special FunctionLead length: 45.00 cmFOUNDATION LAB SYSTEMAnatomical RegionLateralityModalityOtherSpecimen (Source)Anatomical Location / LateralityCollection Method / VolumeCollection TimeReceived Time 12/23/2024 1:08 PM INDUSTRIAL GAS PRODUCTION OPERATOR Impressions 12/23/2024 1:08 PM INDUSTRIAL GAS PRODUCTION OPERATOR Encounter Impression: Title: Hospital Check * Patient was seen in hospital * Reason: pt admitted on with SOB. * Episodes: none * Presenting rhythm: SHOE PACKER @ 90 bpm, occ. PAC's that are not tracked due to falling into refractory * Underlying rhythm: NSR ??@90 bpm, CHB, cont. SHOE PACKER'ing @ 30 bpm * Heart Rate Histograms reviewed * Device Function and programmed parameters reviewed Additional Notes: Smart sync transmission from [facility] ED also evaluated, no anomalies found with that report. ?? Title: Device Reprogrammed Device reprogrammed, changes are listed below: * RV amplitude from 2.25V to 2.5V * PVARP from Auto to 290ms to allow tracking of PAC's Plan: This patient underwent device interrogation. I agree that the device interrogation was medically indicated to provide appropriate care and continue routine device interrogations as indicated. Encounter Summary: This report includes 1 transmission that was received on 2024-12-22. Battery, lead impedance, sensing amplitude and pacing threshold data was reviewed. Narrative Procedure Note Kristy Collazo M.D., M.S. - 12/23/2024 IMPRESSION: Encounter Impression: Title: Hospital Check * Patient was seen in hospital * Reason: pt admitted on Do 317 with SOB. * Episodes: none * Presenting rhythm: SHOE PACKER @ 90 bpm, occ. PAC's that are not tracked dueto falling into refractory * Underlying rhythm: NSR @90 bpm, CHB, cont. SHOE PACKER'ing @ 30 bpm * Heart Rate Histograms reviewed * Device Function and programmed parameters reviewed Additional Notes: Smart sync transmission from [facility] ED also evaluated, no anomalies found with that report. Title: Device Reprogrammed Device reprogrammed, changes are listed below: * RV amplitude from 2.25V to 2.5V * PVARP from Auto to 290ms to allow tracking of PAC's Plan: This patient underwent device interrogation. I agree that the device interrogation was medically indicated to provide appropriate care andcontinue routine device interrogations as indicated. Encounter Summary: This report includes 1 transmission that was receivedon 2024-12-22. Battery, lead impedance, sensing amplitude and pacingthreshold data was reviewed. Authorizing ProviderResult TypeResult StatusBrian Vaca M.D.CV IMPLANTABLE CARDIAC DEVICEFinal Result * CT Chest Angiogram and Pulmonary Arteries with IV Contrast (12/22/2024 1:17 AM INDUSTRIAL GAS PRODUCTION OPERATOR)Anatomical RegionLateralityModalityChest, Cardiovascular RST LOS, Thoracic ARZ LOS, Thoracic FLA LOSN/AComputed Tomography, Computed TomographySpecimen (Source)Anatomical Location / LateralityCollection Method / VolumeCollection TimeReceived Time12/22/2024 1:15 AM INDUSTRIAL GAS PRODUCTION OPERATOR Impressions 12/22/2024 6:09 AM INDUSTRIAL GAS PRODUCTION OPERATOR 1. Negative for acute pulmonary embolism. 2. 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 COMPARISON: CT chest 12/06/2024 FINDINGS: Negative for acute pulmonary embolism. Normal caliber main pulmonary artery. Diffuse bronchial wall thickening. Similar lower lung predominant reticulations, architectural distortion, traction bronchiectasis/bronchiolectasis and groundglass opacities, compatible with fibroticinterstitial lung disease. Stable pulmonary nodules. For example, 5 mm nodule in the right lower lobe (series 8, image 433). Calcified pulmonary granulomas. Calcified pleural plaques. No new focal consolidation, pleural effusion or pneumothorax. Pacemaker. Atherosclerotic calcifications of the aorta. Aortic valve calcifications. Dense mitral annular calcifications. Coronary artery calcifications. Similar trace pericardial effusion. Diffuse thickening of the left ventricular wall with mild apical thinning, likely due to prior infarct. No lymphadenopathy. Calcified right hilar lymph nodes. Small esophageal hiatal hernia. Calcified splenic granulomas. Multilevel spondylotic changes of the spine. Multilevel anterior bridging osteophyte formation, compatible with DISH. Procedure Note Jp Baxter M.D. - 12/22/2024 EXAM: CT CHEST ANGIOGRAM AND PULMONARY ARTERIES WITH IV CONTRAST Including 3D image postprocessing with or without AI assistance. COMPARISON: CT chest 12/06/2024 FINDINGS: Negative for acute pulmonary embolism. Normal caliber main pulmonaryartery. Diffuse bronchial wall thickening. Similar lower lung predominantreticulations, architectural distortion, tractionbronchiectasis/bronchiolectasis and groundglass opacities, compatible withfibrotic interstitial lung disease. Stable pulmonary nodules. For example,5 mm nodule in the right lower lobe (series 8, image 433). Calcifiedpulmonary granulomas. Calcified pleural plaques. No new focalconsolidation, pleural effusion or pneumothorax. Pacemaker. Atherosclerotic calcifications of the aorta. Aortic valve calcifications. Dense mitral annular calcifications. Coronary artery calcifications. Similar trace pericardial effusion. Diffuse thickening ofthe left ventricular wall with mild apical thinning, likely due to priorinfarct. No lymphadenopathy. Calcified right hilar lymph nodes. Small esophageal hiatal hernia. Calcified splenic granulomas. Multilevel spondylotic changes of the spine. Multilevel anterior bridging osteophyte formation, compatible with DISH. IMPRESSION: 1. Negative for acute pulmonary embolism. 2. 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 Authorizing ProviderResult TypeResult StatusTimothy J Vaca M.D.IMG CT PROCEDURES Final Result * Influenza A/B, SARS CoV-2, PCR, Rapid Symptomatic (12/22/2024 12:36 AM INDUSTRIAL GAS PRODUCTION OPERATOR) ComponentValueRef RangeTest MethodAnalysis TimePerformed AtPathologist SignatureInfluenza A, PCR, Rapid, RZkpojuxsWtedockv60/08/2025 1:10 AM CSTSTMA Influenza B, PCR, Rapid, CNtmdiomnNuvfcbxb12/08/2025 1:10 AM CSTSTMASARS CoV- 2, PCR, Rapid, ARlxjcveudfKkzixrcsec63/08/2025 1:10 AM CSTSTMAInfl A/B, SARS CoV-2, PCR, SourceSwab, Udnsbvmdwmf36/08/2025 12:47 AM CSTSTMASpecimen (Source)Anatomical Location / LateralityCollection Method / VolumeCollection TimeReceived TimeSwab (Nasopharynx)12/22/2024 12:36 AM CST12/22/2024 12:47 AM INDUSTRIAL GAS PRODUCTION OPERATOR Narrative Authorizing ProviderResult TypeResult StatusBrian Vaca M.D.LAB MICROBIOLOGY - GENERAL ORDERABLESFinal ResultPerforming OrganizationAddressCity/State/[place] [address], [facility] [address] * (ABNORMAL) Troponin T, 2 Hour with 6 Hour Reflex, 5th Gen (12/21/2024 9:44 PM INDUSTRIAL GAS PRODUCTION OPERATOR)ComponentValueRef RangeTest MethodAnalysis TimePerformed AtPathologist SignatureTroponin T, 2 hr, 5th gen53(H)<=15 ng/L102/21/2024 10:19 PM WTHIKTE7G Delta-2ng/L102/21/2024 10:19 PM CSTSTMAComment:6 hour collection not indicated. 2H Delta InterpNot Pnytclpc38/07/2025 10:19 PM CSTSTMASpecimen (Source) Anatomical Location / LateralityCollection Method / VolumeCollection Time Received DoilTdxiv79/07/2025 9:44 PM CST12/21/2024 9:57 PM INDUSTRIAL GAS PRODUCTION OPERATOR Narrative Authorizing ProviderResult TypeResult StatusKatie L Em P.A.-C.LAB BLOOD TROPONINFinal ResultPerforming OrganizationAddressCity/State/ZIP CodePhone Number [facility] [address] [place] [address], [place] [address] * Patient Status (12/21/2024 6:19 PM INDUSTRIAL GAS PRODUCTION OPERATOR)ComponentValueRef RangeTest Method Analysis TimePerformed AtPathologist SignatureO2 Flow2.0LL/min12/21/2024 6:23 PM EBKHNSMAkvnzwIT57/07/2025 6:23 PM CSTSTMASpont. breaths/wpg423902/21/2024 6:23 PM CSTSTMASpecimen (Source)Anatomical Location / LateralityCollection Method / VolumeCollection TimeReceived WfutDrtim58/07/2025 6:19 PM INDUSTRIAL GAS PRODUCTION OPERATOR 12/21/2024 6:23 PM INDUSTRIAL GAS PRODUCTION OPERATOR Narrative Authorizing ProviderResult TypeResult StatusAlexandalexis Deleon M.D.LAB BLOOD NON ADD-ONFinal ResultPerforming OrganizationAddressCity/State/ZIP CodePhone Number [address] [address], [address] [address] * (ABNORMAL) Blood Gas without Coox, Venous (12/21/2024 6:19 PM INDUSTRIAL GAS PRODUCTION OPERATOR)Component ValueRef RangeTest MethodAnalysis TimePerformed AtPathologist SignaturepO2, Venous, B19Not applicable mm Hg12/21/2024 6:26 PM CSTSTMApCO2, Venous, B53(H) 41 - 51 mm Hg12/21/2024 6:26 PM CSTSTMApH, Venous, B7.437.32 - 7.43 pH 12/21/2024 6:26 PM CSTSTMABase Excess, Venous, B11Not applicable mmol/L 12/21/2024 6:26 PM CSTSTMAHCO3, Venous, B35Not applicable mmol/L102/21/2024 6:26 PM CSTSTMASample Site, Venous, WHkokncyef26/07/2025 6:23 PM CSTSTMA Specimen (Source)Anatomical Location / LateralityCollection Method / Volume Collection TimeReceived TimeBlood (Blood, Venous)12/21/2024 6:19 PM INDUSTRIAL GAS PRODUCTION OPERATOR 12/21/2024 6:23 PM INDUSTRIAL GAS PRODUCTION OPERATOR Narrative Authorizing ProviderResult TypeResult StatusSebas Deleon M.D.LAB BLOOD NON ADD-ONFinal ResultPerforming OrganizationAddressCity/State/ZIP CodePhone Number [facility] [address] [place] [address], [facility] [address] [place] [address] * (ABNORMAL) Prothrombin Time (PT) (12/21/2024 6:19 PM INDUSTRIAL GAS PRODUCTION OPERATOR)ComponentValueRef RangeTest MethodAnalysis TimePerformed AtPathologist SignatureProthrombin Time, P13.0(H)9.4 - 12.5 sec12/21/2024 6:29 PM CSTSTMAINR1.20.9 - 1.1 12/21/2024 6:29 PM CSTSTMAComment: ----ADDITIONAL INFORMATION---- Standard intensity warfarin therapeutic range: 2.0 to 3.0 ?? High intensity warfarin therapeutic range: 2.5 to 3.5 Specimen (Source)Anatomical Location / LateralityCollection Method / Volume Collection TimeReceived TimeBlood (Blood, Venous)12/21/2024 6:19 PM INDUSTRIAL GAS PRODUCTION OPERATOR 12/21/2024 6:23 PM INDUSTRIAL GAS PRODUCTION OPERATOR Narrative Authorizing ProviderResult TypeResult Queta Deleon M.D.LAB BLOOD ADD-ONFinal ResultPerforming OrganizationAddressCity/State/ZIP CodePhone Number [facility] [address] [place] [address], [facility] [address] [place] [address] * (ABNORMAL) Troponin T, Baseline with 2 Hour/6 Hour Reflex Biomarker Panel (12/21/2024 6:19 PM INDUSTRIAL GAS PRODUCTION OPERATOR)ComponentValueRef RangeTest MethodAnalysis Time Performed AtPathologist SignatureTroponin T, Baseline, 5th gen55(H)<=15 ng/L 12/21/2024 6:48 PM CSTSTMASpecimen (Source)Anatomical Location / Laterality Collection Method / VolumeCollection TimeReceived TimeBlood (Blood, Venous) 12/21/2024 6:19 PM CST12/21/2024 6:23 PM INDUSTRIAL GAS PRODUCTION OPERATOR Narrative Authorizing ProviderResult TypeResult Kathy Blanco D.O.LAB BLOOD TROPONIN Final ResultPerforming OrganizationAddressCity/State/ZIP CodePhone Number [facility] [address] [place] [address], [address] [address] * NT-Pro B-Type Natriuretic Peptide (BNP) (12/21/2024 6:19 PM INDUSTRIAL GAS PRODUCTION OPERATOR)ComponentValue Ref RangeTest MethodAnalysis TimePerformed AtPathologist SignatureNT-Pro BNP 466<=540 pg/mL12/21/2024 6:48 PM CSTSTMAComment: NT-proBNP values less than 300 pg/mL have [...] Method / Volume Collection TimeReceived TimeBlood (Blood, Venous)12/21/2024 6:19 PM INDUSTRIAL GAS PRODUCTION OPERATOR 12/21/2024 6:23 PM INDUSTRIAL GAS PRODUCTION OPERATOR Narrative Authorizing ProviderResult TypeResult StatusOg Blanco D.O.LAB BLOOD ADD-ON Final ResultPerforming OrganizationAddressCity/State/ZIP CodePhone Number [facility] [address] [place] [address], [address] [address] * (ABNORMAL) CBC with Differential, Blood (12/21/2024 6:19 PM INDUSTRIAL GAS PRODUCTION OPERATOR)ComponentValue Ref RangeTest MethodAnalysis TimePerformed AtPathologist SignatureHemoglobin 12.8(L)13.2 - 16.6 g/dL12/21/2024 6:28 PM AOAHLHNOtkuoglbvw60.238.3 - 48.6 % 12/21/2024 6:28 PM CSTSTMAErythrocytes4.644.35 - 5.65 x10(12)/L102/21/2024 6:28 PM GDFTPYMAJU03.678.2 - 97.9 fL12/21/2024 6:28 PM CSTSTMARBC Distrib Width15.7 (H)11.8 - 14.5 %12/21/2024 6:28 PM CSTSTMAPlatelet Gwpzx872853 - 317 x10(9)/L 12/21/2024 6:28 PM XTERXECNsqmgyfyur81.6(H)3.4 - 9.6 x10(9)/L102/21/2024 6:28 PM URLXXNXFtfuhsypdng47.76(H)1.56 - 6.45 x10(9)/12/21/2024 6:28 PM CSTDHPM Lymphocytes0.93(L)0.95 - 3.07 x10(9)/12/21/2024 6:28 PM CSTSTMAMonocytes0.81 0.26 - 0.81 x10(9)/12/21/2024 6:28 PM CSTSTMAEosinophils0.030.03 - 0.48 x10(9)/12/21/2024 6:28 PM CSTSTMABasophils0.050.01 - 0.08 x10(9)/12/21/2024 6:28 PM CSTSTMASpecimen (Source)Anatomical Location / LateralityCollection Method / VolumeCollection TimeReceived TimeBlood (Blood, Venous)12/21/2024 6:19 PM CST12/21/2024 6:23 PM INDUSTRIAL GAS PRODUCTION OPERATOR Narrative Authorizing ProviderResult TypeResult StatusLufabio Blanco D.O.LAB BLOOD ADD-ON Final ResultPerforming OrganizationAddressCity/State/ZIP CodePhone Number [facility] [address] [place] [address], [facility] STMA [facility] [address] [place], [place] [address] [place] [address] [address] [place] [address] * (ABNORMAL) Basic Metabolic Panel (12/21/2024 6:19 PM INDUSTRIAL GAS PRODUCTION OPERATOR)ComponentValueRef RangeTest MethodAnalysis TimePerformed AtPathologist SignaturePotassium, P4.6 3.6 - 5.2 mmol/L102/21/2024 6:39 PM CSTSTMASodium, R529574 - 145 mmol/L 12/21/2024 6:39 PM CSTSTMAChloride, P93(L)98 - 107 mmol/L102/21/2024 6:39 PM CSTSTMABicarbonate, P33(H)22 - 29 mmol/L102/21/2024 6:39 PM CSTSTMAAnion Gap, P 117 - 15102/21/2024 6:39 PM CSTSTMABUN (Blood Urea Nitrogen), P25(H)8 - 24 mg/dL12/21/2024 6:39 PM CSTSTMACreatinine1.44(H)0.74 - 1.35 mg/dL12/21/2024 6:39 PM CSTSTMAEstimated GFR (eGFR)47(L)>=60 mL/min/BSA12/21/2024 6:39 PM INDUSTRIAL GAS PRODUCTION OPERATOR STMAComment: Estimated GFR calculated using the 2020 CKD_EPI creatinine equation. Calcium, Total, P9.28.8 - 10.2 mg/dL12/21/2024 6:39 PM CSTSTMAGlucose, L53067 - 140 mg/dL12/21/2024 6:39 PM CSTSTMASpecimen (Source)Anatomical Location / LateralityCollection Method / VolumeCollection TimeReceived TimeBlood (Blood, Venous)12/21/2024 6:19 PM CST12/21/2024 6:23 PM INDUSTRIAL GAS PRODUCTION OPERATOR Narrative Authorizing ProviderResult TypeResult StatusLufabio Blanco D.O.LAB BLOOD ADD-ON Final ResultPerforming OrganizationAddressCity/State/ZIP CodePhone Number [facility] kooldiner [facility] [address] [place] [address], [facility] STMA [facility] [address] [place] [address] * DX Chest AP or PA and Lateral 2 Views (12/21/2024 5:57 PM INDUSTRIAL GAS PRODUCTION OPERATOR)Anatomical RegionLateralityModalityChest, Thoracic RST LOS, Thoracic ARZ LOS, Thoracic FLA LOSN/ADigital RadiographySpecimen (Source)Anatomical Location / Laterality Collection Method / VolumeCollection TimeReceived Time Impressions 12/21/2024 6:24 PM INDUSTRIAL GAS PRODUCTION OPERATOR Similar lung predominant reticulations, compatible with interstitial fibrosis. Mild patchy opacities which could represent a infectious/inflammatory process. No pneumothorax or sizable pleural effusion. Left chest wall pacemaker. Aortic calcifications. Degenerative changes of the spine. Narrative 12/21/2024 6:24 PM INDUSTRIAL GAS PRODUCTION OPERATOR EXAM: DX CHEST AP OR PA AND LATERAL 2 VIEWS Procedure Note Jonathon Stratton D.O. - 12/21/2024 EXAM: DX CHEST AP OR PA AND LATERAL 2 VIEWS IMPRESSION: Similar lung predominant reticulations, compatible with interstitialfibrosis. Mild patchy opacities which could represent ainfectious/inflammatory process. No pneumothorax or sizable pleuraleffusion. Left chest wall pacemaker. Aortic calcifications. Degenerativechanges of the spine. Authorizing ProviderResult TypeResult StatusOg Blanco D.O.IMG DIAGNOSTIC IMAGING PROCEDURESFinal Result * ECG 12 Lead (12/21/2024 5:26 PM INDUSTRIAL GAS PRODUCTION OPERATOR)ComponentValueRef RangeTest MethodAnalysis TimePerformed AtPathologist SignatureVentricular Rate ECG/Tyo21OMRNLLYZR Eywwaxah643oaLMTGESZX Anywmqyi219qwARQLCY Lpguoxsz322cjAJYVIAC Dlsjnzto818xg MUSEP Pdyi80mszljgdSMNTO Countyline-76degreesMUSET Wave Vcbr22swkxrubSZBSGwnmwjuq (Source)Anatomical Location / LateralityCollection Method / VolumeCollection TimeReceived Time12/21/2024 5:26 PM CST12/24/2024 5:52 PM INDUSTRIAL GAS PRODUCTION OPERATOR Impressions MUSE - 12/24/2024 5:52 PM INDUSTRIAL GAS PRODUCTION OPERATOR Atrial-sensed ventricular-paced rhythm one av sequential paced beat Sinus rhythm Premature atrial complexes Prolonged QT When compared with ECG of 07-Dec-2024 07:26, Vent. rate has decreased by ??10 bpm Revised Report Narrative Procedure Note Juvenal Nelson Jr., M.D. - 12/24/2024 IMPRESSION: Atrial-sensed ventricular-paced rhythm one av sequential paced beat Sinus rhythm Premature atrial complexes Prolonged QT When compared with ECG of 07-Dec-2024 07:26, Vent. 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) Evaluation Manager (Current) Anticoagulant Treatment Atrial Fibrillation Paroxysmal (HCC) Apnea Sleep Obstructive Hyperlipidemia Pacemaker Cardiac Status Post Failure Renal Acute (Acute Kidney Injury) Eosinophilic Asthma (HCC) Chronic Diastolic (Congestive) Heart Failure (HCC) Asthma Severe (HCC) Block Heart Gastroesophageal Reflux Disease 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 Do NOT crush, chew, or split tablet. Given12/27/2024 8:45 AM CST5 tmUttey5812/26/2024 12:12 PM CST5 ncHnsmo3712/25/2024 9:32 PM CST5 mg budesonide 0.25 mg/2 mL nebulizer solution 0.25 mg (Pulmicort) 0.25 mg, nebulization, 2 times daily (RT), First dose on Tue12/22/24 at 0700, Rinse mouth with water after use to reduce aftertaste and incidence of candidiasis. Do not swallow. Given12/27/2024 9:26 AM CST0.25 ojNecpk8712/26/2024 5:12 PM CST0.25 mgGiven 12/26/2024 5:44 AM CST0.25 mg cholecalciferol (vitamin D3) tablet 25 mcg 25 mcg, oral, Daily, First dose on Tue12/22/24 at 0900, cholecalciferol (vitamin D3) orderable was interchanged for cholecalciferol (vitamin D3) tablet/capsule Given12/27/2024 8:28 AM CST25 vewBcxsp11/12/2025 9:31 AM CST25 mcgGiven 12/25/2024 8:30 AM CST25 mcg finasteride tablet 5 mg (Proscar) 5 mg, oral, Daily, First dose on [facility] 12/22/24 at 0900, See tube feeding guidelines for tube feeding administration instructions. Given12/27/2024 8:28 AM CST5 evZqukk0912/26/2024 9:31 AM CST5 mwIiejy0312/25/2024 8:30 AM CST5 mg fluticasone furoate-vilanteroL 100-25 mcg/actuation inhaler 1 puff (Breo Ellipta) 1 puff, inhalation, Daily (RT), First dose on [facility] 12/22/24 at 0800, Rinse mouth with water after useto reduce aftertaste and incidence of candidiasis. Do [...] Remove inhaler from mouth. 7. Close lid. Given12/27/2024 8:30 AM CST1 gzxwFjdlk14/12/2025 9:26 AM CST1 puffGiven 12/25/2024 8:30 AM CST1 puff iopromide 370 mg iodine/mL injection 1-162 mL (Ultravist) 1-162 mL, intravenous, Once in imaging, contrast, Starting on [facility] 12/22/24 at 0058, For 1 dose, Imaging Protocol Orders, Dose per Radiant Medication Guidelines Given12/22/2024 1:15 AM CST80 mL ipratropium-albuteroL 0.5-2.5 mg/3 mL nebulizer solution 3 mL (DuoNeb) 3 mL, nebulization, 4 times daily, First dose on [facility] 12/22/24 at 0800 Given12/27/2024 12:45 PM CST3 nNDvrjl9712/27/2024 9:26 AM CST3 zQGdtsm8112/26/2024 9:17 PM CST3 mL Lactated Ringer's bolus 1,000 mL 1,000 mL, intravenous, at 250 mL/hr, Administer over 4 Hours, Once, On 12/22/24 at 1615, For 1 dose [facility]12/22/2024 4:30 PM CST1,000 mL250 mL/hr Lactated Ringer's bolus 1,000 mL 1,000 mL, intravenous, at 500 mL/hr, Administer over 2 Hours, Once, On 12/23/24 at 0715, For 1 dose New 12/23/2024 7:44 AM CST1,000 mL500 mL/hr montelukast tablet 10 mg (Singulair) 10 mg, oral, Daily at bedtime, First dose on 12/22/24 at 2100 Given12/26/2024 9:17 PM CST10 ykKbfsr6512/25/2024 9:32 PM CST10 ecFuxwi5912/24/2024 8:11 PM CST10 mg NaCl 0.9 % bolus 500 mL 500 mL, intravenous, at 500 mL/hr, Administer over 1 Hours, Once, On Tue12/22/24 at 0032, For 1 dose New 12/22/2024 1:27 AM KTT211 mL500 mL/hr pantoprazole DR tablet 40 mg (Protonix) 40 mg, oral, Daily before morning meal, First dose on 12/22/24 at 0700, pantoprazole 40 mg oral daily was interchanged for omeprazole 20 or 40 mg oral daily Swallow whole. Do NOT crush, chew, or split tablet. Given12/27/2024 8:28 AM CST40 oyIkedc3712/26/2024 5:45 AM CST40 syYzvnv1612/25/2024 6:10 AM CST40 mg potassium chloride ER tablet 20 mEq 20 mEq, oral, 2 times daily with meals, First dose on 12/22/24 at 0800, potassium chloride orderable was interchanged for potassium chloride tablet/capsule Swallow whole. Do NOT crush, chew, or split tablet. Given12/22/2024 9:27 AM CST20 mEq potassium chloride ER tablet 20 mEq 20 mEq, oral, Daily with morning meal, First dose (after last modification) on 12/23/24 at 0800,potassium chloride orderable was interchanged for potassium chloride tablet/capsule Swallow whole. Do NOT crush, chew, or split tablet. Given12/27/2024 8:27 AM CST20 fNhIwaul81/12/2025 9:31 AM CST20 mEqGiven 12/25/2024 8:30 AM CST20 mEq predniSONE tablet 10 mg (Deltasone) 10 mg, oral, Once, On Tue12/22/24 at 1615, For 1 dose Given12/22/2024 4:30 PM CST10 mg predniSONE tablet 20 mg (Deltasone) 20 mg, oral, Daily, First dose on Tue12/22/24 at 0900 Given12/22/2024 9:27 AM CST20 mg predniSONE tablet 20 mg (Deltasone) 20 mg, oral, Daily, First dose on 12/30/24 at 0900, For 21 doses predniSONE tablet 30 mg (Deltasone) 30 mg, oral, Daily, First dose (after last modification) on 12/23/24 at 0900 Given12/24/2024 8:35 AM CST30 wjFlzpj9612/23/2024 8:56 AM CST30 mg predniSONE tablet 30 mg (Deltasone) 30 mg, oral, Daily, First dose (after last modification) on 12/25/24 at 0900, For 5 doses Given12/27/2024 8:28 AM CST30 xaTcvyj0612/26/2024 9:31 AM CST30 jzIylhx6412/25/2024 8:30 AM CST30 mg rivaroxaban tablet 15 mg (Xarelto) 15 mg, oral, Daily with evening meal, First dose on Tue12/22/24 at 1700 Given12/26/2024 5:12 PM CST15 qqCmpeb5212/25/2024 6:11 PM CST15 apWakye4212/24/2024 4:36 PM CST15 mg sertraline tablet 50 mg (Zoloft) 50 mg, oral, Daily, First dose on Tue12/22/24 at 0900 Given12/27/2024 8:28 AM CST50 xqUfrfn0812/26/2024 9:31 AM CST50 vyPqvze0912/25/2024 8:30 AM CST50 mg sodium chloride (PF) 0.9 % injection 1-100 mL 1-100 mL, intravenous, Once, On 12/22/24 at 0059, For 1 dose, Imaging Protocol Orders, Dose per Radiant Medication Guidelines Given12/22/2024 1:15 AM CST30 mL sodium chloride 0.9 % injection 10 mL 10 mL, intravenous, As needed, line care, Starting on Tue12/21/24 at 1738, Peripheral Intravenous Catheter and Rapid Infusion Catheter, prior to blood sampling, post blood transfusion or post blood sampling sodium chloride 0.9 % injection 3 mL 3 mL, intravenous, As needed, line care, Starting on Tue12/21/24 at 1738, Prior to and following infusion and between multiple consecutive infusions: sodium chloride 0.9 % injection sodium chloride 0.9 % injection 3 mL 3 mL, intravenous, Every 12 hours scheduled, First dose on Tue12/21/24 at 2100, Peripheral Intravenous Catheter and Rapid Infusion Catheter, when no infusion to maintain patency Given12/27/2024 8:30 AM CST3 oFMrsao4512/26/2024 9:17 PM CST3 wHSvqec2712/26/2024 9:38 AM CST3 mL sulfamethoxazole-trimethoprim 400-80 mg per tablet 1 tablet (Bactrim) 1 tablet, oral, Daily, First dose on Tue12/22/24 at 0900, Drug Monitoring Program: Pharmacist to adjust medication dosing based on indication and drug clearance factors., Indications: Prophylaxis, medical Indications:Prophylaxis, dlfygjzOtljg59/13/2025 8:27 AM CST1 tabletGiven 12/26/2024 9:31 AM CST1 kwbvfaRdmir37/11/2025 8:30 AM CST1 tablet torsemide tablet 60 mg (Demadex) 60 mg, oral, Daily, First dose on 12/22/24 at 0900 Given12/23/2024 8:55 AM CST60 zuDopmy7412/22/2024 9:27 AM CST60 mg torsemide tablet 60 mg (Demadex) 60 mg, oral, Daily, First dose (after last modification) on Tue12/27/24 at 0900, On hold since Tue12/27/2024 at 0753 until manually unheld torsemide tablet 80 mg (Demadex) 80 mg, oral, Daily, First dose (after last modification) on 12/24/24 at 0900 Given12/26/2024 9:30 AM CST80 iwNhpiu9412/25/2024 8:30 AM CST80 geKaniv9112/24/2024 8:35 AM CST80 mgdocumented in this encounter Active and Recently Administered Medications Times are shown in 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 Do not swallow. * 0611 (Given - Provider: Tracey Hargrove R.N.) * 1826 (Given - Provider: Tyrel Andersen, R.N.) * 0544 (Given - Provider: Cathy Landis R.N.) * 1712 (Given - Provider: Kristy Hall R.N.) * 0926 (Given - Provider: Sun Morris R.N.) cholecalciferol (vitamin D3) tablet 25 mcg 25 mcg, oral, Daily, First dose on 12/22/24 at 0900, cholecalciferol (vitamin D3) orderable was interchanged for cholecalciferol (vitamin D3) tablet/capsule * 0830 (Given - Provider: Srinivas Pearson R.N., [facility]) * 0931 (Given - Provider: Kristy Hall R.N.) * 0828 (Given - Provider: Sun Morris R.N.) finasteride tablet 5 mg (Proscar) 5 mg, oral, Daily, First dose on 12/22/24 at 0900, See tube feeding guidelines for tube feeding administration instructions. * 0830 (Given - [facility]., [facility] * 0931 (Given - Provider: Kristy Hall R.N.) * 0828 (Given - Provider: Sun Morris R.N.) fluticasone furoate-vilanteroL 100-25 mcg/actuation inhaler 1 puff (Breo Ellipta) 1 puff, inhalation, Daily (RT), First dose on 12/22/24 at 0800, Rinse mouth with water after useto reduce aftertaste and incidence of candidiasis. Do [...] inhaler from mouth. 7. Close lid. * 0830 (Given - Provider: Srinivas Pearson R.N., [facility]) * 0926 (Given - Provider: Kristy Hall R.N.) * 0830 (Given - Provider: Pilar WhitmoreN.) ipratropium-albuteroL 0.5-2.5 mg/3 mL nebulizer solution 3 mL (DuoNeb) 3 mL, nebulization, 4 times daily, First dose on 12/22/24 at 0800 * 0830 (Given - Provider: Srinivas Pearson R.N., [facility]) * 1345 (Given - Provider: Tyrel Andersen, R.N. - Comment: lunch) * 1655 (Given - Provider: Kya Kraft M.A.Pranav, R.N.) * 2132 (Given - Provider: Kera AndersenA.NAna, R.N.) * 0927 (Given - Provider: Messi Jacobo.N.) * 1212 (Given - Provider: Kristy Hall R.N.) * 1712 (Given - Provider: Pilar JacoboN.) * 2117 (Given - Provider: Cathy Landis R.N.) * 0926 (Given - Provider: Sun Morris R.N.) * 1245 (Given - Provider: Sun Morris R.N.) montelukast tablet 10 mg (Singulair) 10 mg, oral, Daily at bedtime, First dose on 12/22/24 at 2100 * 2132 (Given - Provider: Kya Kraft M.A.Pranav, R.N.) * 2117 (Given - Provider: Cathy Landis R.N.) pantoprazole DR tablet 40 mg (Protonix) 40 mg, oral, Daily before morning meal, First dose on 12/22/24 at 0700, pantoprazole 40 mg oral daily was interchanged for omeprazole 20 or 40 mg oral daily Swallow whole. Do NOT crush, chew, or split tablet. * 0610 (Given - Provider: Tracey Hargrove R.N.) * 0545 (Given - Provider: Cathy Landis R.N.) * 0828 (Given - Provider: Sun Morris R.N.) potassium chloride ER tablet 20 mEq 20 mEq, oral, Daily with morning meal, First dose (after last modification) on 12/23/24 at 0800,potassium chloride orderable was interchanged for potassium chloride tablet/capsule Swallow whole. Do NOT crush, chew, or split tablet. * 0830 (Given - Provider: Srinivas Pearson R.N., [facility]) * 0931 (Given - Provider: Kristy Hall R.N.) * 0827 (Given - Provider: Sun Morris R.N.) predniSONE tablet 20 mg (Deltasone)(Linked Group 1) 20 mg, oral, Daily, First dose on 12/30/24 at 0900, For 21 doses predniSONE tablet 30 mg (Deltasone)(Linked Group 1) 30 mg, oral, Daily, First dose (after last modification) on Tu12/25/24 at 0900, For 5 doses * 0830 (Given - Provider: [facility]., [facility]) * 0931 (Given - Provider: Kristy Hall R.N.) * 0828 (Given - Provider: Sun Morris R.N.) rivaroxaban tablet 15 mg (Xarelto) 15 mg, oral, Daily with evening meal, First dose on 12/22/24 at 1700 * 1811 (Given - Provider: Tyrel Andersen, R.N.) * 1712 (Given - Provider: Kristy Hall R.N.) sertraline tablet 50 mg (Zoloft) 50 mg, oral, Daily, First dose on 12/22/24 at 0900 * 0830 (Given - Provider: Srinivas Pearson R.N., [facility]) * 0931 (Given - Provider: Kristy Hall R.N.) * 0828 (Given - Provider: Sun Morris R.N.) sodium chloride 0.9 % injection 3 mL 3 mL, intravenous, Every 12 hours scheduled, First dose on Tue12/21/24 at 2100, Peripheral Intravenous Catheter and Rapid Infusion Catheter, when no infusion to maintain patency * 0831 (Given - Provider: Srinivas Pearson R.N., [facility]) * 2132 (Given - Provider: Tyrel Andersen, R.NAna) * 0938 (Given - Provider: Kristy Hall R.N.) * 2117 (Given - Provider: Cathy Landis R.N.) * 0830 (Given - Provider: Sun Morris R.N.) sulfamethoxazole-trimethoprim 400-80 mg per tablet 1 tablet (Bactrim) 1 tablet, oral, Daily, First dose on 12/22/24 at 0900, Drug Monitoring Program: Pharmacist to adjust medication dosing based on indication and drug clearance factors., Indications: Prophylaxis, medical * 0830 (Given - Provider: [facility] R.N., [facility]) * 0931 (Given - Provider: Kristy Hall R.N.) * 0827 (Given - Provider: Sun Morris R.N.) torsemide tablet 60 mg (Demadex) 60 mg, oral, Daily, First dose (after last modification) on [place] 12/27/24 at 0900, On hold since Tue12/27/2024 at 0753 until manually unheld * 1820 (Held by provider - Provider: Iliana Vazquez P.A.-C. - Comment: DENITA) * 0753 (Unheld by provider - Provider: Iliana Vazquez P.A.-C.) * 0753 (Held by provider - Provider: Farrah Godwin-CAna - Comment: Monitoring renal function) * 0900 (Not Given - Provider: Sun Morris R.N. - Reason: See Provider Order) * 1638 (Unheld by provider - Provider: Discharge Provider, Automatic) torsemide tablet 80 mg (Demadex) (CANCELED) 80 mg, oral, Daily, First dose (after last modification) on Tue12/24/24 at 0900 * 0830 (Given - Provider: S[facility] R.N., [facility]) * 0930 (Given - Provider: Kristy Hall R.N.) Medication Order// acetaminophen tablet 1,000 mg (TylenoL) 1,000 mg, oral, 2 times daily PRN, mild pain or score 1-3 of 10, headaches, fever, Starting on Tue12/22/24 at 0437 * 2116 (Given - Provider: Cathy Landis R.N.) bisacodyL DR tablet 5 mg (Dulcolax) 5 mg, oral, 2 times daily PRN, constipation, Starting on Tue12/25/24 at 1429, Swallow whole. Do NOT crush, chew, or split tablet. * 2132 (Given - Provider: Tyrel Andersen, R.N.) * 1212 (Given - Provider: Kristy Hall R.N.) * 0845 (Given - Provider: Sun Morris R.N.) sodium chloride 0.9 % injection 10 mL 10 mL, intravenous, As needed, line care, Starting on Tue12/21/24 at 1738, Peripheral Intravenous Catheter and Rapid Infusion Catheter, prior to blood sampling, post blood transfusion or post blood sampling sodium chloride 0.9 % injection 3 mL 3 mL, intravenous, As needed, line care, Starting on Tue12/21/24 at 1738, Prior to and following infusion and between multiple consecutive infusions: sodium chloride 0.9 % injection Order Group 1: predniSONE tablet 30 mg (Deltasone)Jump to med 30 mg, oral, Daily, First dose (after last modification) on Tue12/25/24 at 0900, For 5 doses Followed by predniSONE tablet 20 mg (Deltasone)Jump to med 20 mg, oral, Daily, First dose on 12/30/24 at 0900, For 21 doses documented in this encounter Additional Health Concerns InfectionOnset DateLast IndicatedResolved DxqsUMYYZ91 Abzahmu2912/22/2024 1:10 AM CXRBTHUO98 Svxtxyd65 4:16 AM CSTdocumented as of this encounter Care Teams Team MemberRelationshipSpecialtyStart DateEnd Date Elsewhere, Pcp PCP - GeneralInternal Znhigzpx21/8/25documented as of this encounter
--- OUTSIDE RECORDS SUMMARY | 2025-01-04 07:45 | XMS_ITS | Encounter Summary ---
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 [address] [place] [address] Phone: tel: fax: [facility] Referral IDStatusReasonStart DateExpiration DateVisits RequestedVisits [id number]/27/20251/ D SWALLOWER Reason for Visit * MRI/CAT/PET Scan (Routine) - ClosedSpecialtyDiagnoses / ProceduresReferred By ContactReferred To ContactRadiology Diagnoses Acute And Chronic Respiratory Failure With Hypoxia (HCC) Procedures CT Chest without IV Contrast Blanco Spivey M.D. [address] [place] [address] Phone: tel: fax: [facility] Referral IDStatusReasonStart DateExpiration DateVisits RequestedVisits [id number]/27/[id number]/ Encounter Details DateTypeDepartmentCare Team (Latest Contact Info)Tvcxnqasbgb60/21/2025 7:45 AM SWORD SWALLOWER - 01/04/2025 1:59 PM CSTHospital Encounter Department of Radiology, [facility], in [place], [place] [address] [place] [address] Blanco Spivey M.D. 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) Discharge Disposition: Home or Self Care Social History Tobacco UseTypesPacks/DayYears UsedDateSmoking Tobacco: YnamwtPpqokayczy206 02/15/1956 - 02/14/1966Smokeless Tobacco: FormerChewQuit: 02/14/1966Alcohol Use [...] RecordedIn the past 12 months has the electric, gas, oil, or water company threatened to shut off services in your home?No12/22/2024Housing StabilityAnswerDate RecordedWhat is your living situation today?I have a steady place to live12/22/2024Education AnswerDate RecordedWhat is the highest level of school you have completed or the highest degree you have received?GED or trjsxpgovm22/05/2020Sex and Gender InformationValueDate RecordedSex Assigned at KirfmVdek33/05/2018 9:08 AM CDT Legal XayJvba3603/18/2016 7:31 AM CSTGender PzybshowPsda92/05/2018 9:08 AM CDT Sexual PymwideqkvsCgngotao12/05/2018 9:08 AM CDTOccupationIndustryJob Start Date Job End DateRetiredNot on fileNot on fileNot on filedocumented as of this encounter Medications at Time [...] Take 10 mg by mouth at bedtime.11/16/2019 mqrgjipupmak-ffuk-KL-Ca-minerals 400 mcg (folic acid) tablet Take 1 [...] daily with morning meal. 30 tablet 12/27/2024 predniSONE (Deltasone) 5 mg tablet Take 3 tablets for 14 days, then take 2 tablets for 14 days, then take 1 tablet for 14 days then stop. 84 tablet 01/04/2025 4:04 PM CST01/21/2025 rivaroxaban (Xarelto) 15 mg tablet Take 1 [...] tablet (20 mg total) daily for 21 days./08/2024 sulfamethoxazole-trimethoprim (Bactrim) 400-80 mg per tablet Indications:Prophylaxis, medicalTake 1 tablet by mouth daily for 11 days Indications: Prophylaxis, medical./07/2024 sulfamethoxazole-trimethoprim (Bactrim) 400-80 mg per tablet Indications:Prophylaxis, medicalTake 1 tablet by mouth daily Indications: Prophylaxis, medical. 30 tablet / torsemide 60 mg tablet Take 60 mg by mouth daily. 60 tablet documented as of this encounter Plan of Treatment DateTypeDepartmentCare Team (Latest Contact Info)Cwxfoznutay83/29/2025 10:15 AM CSTClinical Communication Virtual Review in [place], [place] [address] [place] [address] 02/12/2025 11:15 AM CSTAppointment Department of Radiology, [facility] in [place], [place] [address] [place] [phone] Lilli Moore M.D. [address] [place] [phone] 02/12/2025 11:50 AM CSTAppointment Department of Laboratory Medicine and Pathology, [facility] in [place], [place] [address] [place] [phone] Lilli Moore M.D. [address] [place] [address] 02/12/2025 1:30 PM CSTOffice Visit Division of Pulmonary Medicine in [place], [place] [address] [place] [address] Lilli Moore M.D. 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 2. Sequelae of previous granulomatous infection. Narrative 01/04/2025 8:47 AM SWORD SWALLOWER EXAM: CT CHEST WITHOUT IV CONTRAST COMPARISON: [...] granulomatous infection. Authorizing ProviderResult TypeResult StatusReid Yoseph JAIN CT PROCEDURESFinal Result documented in this encounter Visit Diagnoses Diagnosis Acute And Chronic Respiratory Failure With Hypoxia (HCC) documented in this encounter Care Teams Team MemberRelationshipSpecialtyStart DateEnd Date Elsewhere, Pcp PCP - GeneralInternal Cynfkmie07/8/25documented as of this encounter
--- OUTSIDE RECORDS SUMMARY | 2025-01-04 12:30 | XMS_ITS | Encounter Summary ---
Author Organization [facility] Address [address] [place] [address] Care Team Providers Care Wellness Instructor Name Role Phone Elsewhere, Pcp Primary Care Provider Unavailabl e Reason for Referral * Outpatient (Routine) - ClosedSpecialtyDiagnoses / ProceduresReferred By ContactReferred To Contact Diagnoses Lung Interstitial Disease (HCC) Procedures ECG 12 Lead AL EKG 12 LEAD W I&R Blanco Spivey M.D. [address] [place] [address] Phone: tel: fax: [facility] Referral IDStatusReasonStart DateExpiration DateVisits RequestedVisits [id number]/21/20252/ ONS SERVER * Cardiovascular-Diagnostic (Routine) - ClosedSpecialtyDiagnoses / Procedures Referred By ContactReferred To Contact Diagnoses Lung Interstitial Disease (HCC) Procedures Six Minute Walk Blanco Spivey M.D. [address] [place] [address] Phone: tel: fax: [facility] Referral IDStatusReasonStart DateExpiration DateVisits RequestedVisits [id number]/21/20252/21/202711 ONS SERVER * Outpatient (Routine) - ClosedSpecialtyDiagnoses / ProceduresReferred By ContactReferred To Contact Diagnoses Lung Interstitial Disease (HCC) Procedures DX Chest AP or PA and Lateral 2 Views Blanco Spivey M.D. [address] [place] [address] Phone: tel: fax: [facility] Referral IDStatusReasonStart DateExpiration DateVisits RequestedVisits [id number]/21/20252/21/202711 ONS SERVER * Outpatient (Routine) - ClosedSpecialtyDiagnoses / ProceduresReferred By ContactReferred To ContactCardiovascular Diseases / Cardiovascular Disease Diagnoses Lung Interstitial Disease (HCC) Blanco Spivey M.D. [address] [place] [address] Phone: tel: fax: [facility] Referral IDStatusReasonStart DateExpiration DateVisits RequestedVisits [id number]/21/20255/23/202711 ONS SERVER * Outpatient (Routine) - AuthorizedSpecialtyDiagnoses / ProceduresReferred By ContactReferred To Contact Diagnoses Lung Interstitial Disease (HCC) Blanco Spivey M.D. [address] [place] [address] Phone: tel: fax: Referral IDStatusReasonStart DateExpiration DateVisits RequestedVisits [id number]/21/20255/23/283975 ONS SERVER Reason for Visit * Outpatient (Routine) - ClosedSpecialtyDiagnoses / ProceduresReferred By ContactReferred To ContactPulmonary Medicine Blanco Spivey M.D. [address] [place] [address] Phone: tel: fax: Blanco Spivey M.D. [address] [place] [address] Phone: tel: fax: Referral IDStatusReasonStart DateExpiration DateVisits RequestedVisits [id number]/27/20254/28/202711 Encounter Details DateTypeDepartmentCare Team (Latest Contact Info)Rtlyavixbpz18/21/2025 12:30 PM CSTOffice Visit Division of Pulmonary Medicine in [place], [place] [address] [place] [phone] Blanco Spivey M.D. [address] [place] [phone] Lung Interstitial Disease (HCC) (Primary Dx); Eosinophilic Asthma (HCC); Respiratory Failure With Hypoxia (HCC); Acute And Chronic Respiratory Failure With Hypoxia (HCC) Social History Tobacco UseTypesPacks/DayYears UsedDateSmoking Tobacco: GarhilDnbgteksmx430 02/15/1956 - 02/14/1966Smokeless Tobacco: FormerChewQuit: 02/14/1966Alcohol Use [...] RecordedIn the past 12 months has the [employer], gas, oil, or water [facility] threatened to shut off services in your home?No12/22/2024Housing StabilityAnswerDate RecordedWhat is your living situation today?I have a steady place to live12/22/2024Education AnswerDate RecordedWhat is the highest level of school you have completed or the highest degree you have received?GED or gkdrrrbfiq88/05/2020Sex and Gender InformationValueDate RecordedSex Assigned at VpjxnNkmw26/05/2018 9:08 AM CDT Legal YhhBieh0503/18/2016 7:31 AM CSTGender DnajgwfbTcdq87/05/2018 9:08 AM CDT Sexual OrrhkqwvwayQforsbxw98/05/2018 9:08 AM CDTOccupationIndustryJob Start Date Job End DateRetiredNot on fileNot on fileNot on filedocumented as of this encounter Last Filed Vital Signs Vital SignReadingTime TakenCommentsBlood Pressure--Pulse--Temperature-- Respiratory Rate--Oxygen Biuhflfvyc98%01/04/2025 12:30 PM CSTInhaled Oxygen Concentration--Weight--Height--Body Mass Index--documented in this encounter Progress Notes * Blanco Spivey M.D. - 01/04/2025 12:30 PM CST Images from the original note were not included. DATE OF VISIT: 01/04/2025 SUBJECTIVE CHIEF COMPLAINT / REASON FOR VISIT Marcos Perez is a 89 y.o. male who presents for evaluation of No chief complaint on file.. The patient verbally consented to an audio recording of their visit to assist with the completion of documentation. History of Present Illness Marcos Jacob is an 89 year old male with pulmonary fibrosis who presents with worsening shortness of breath. Medical comorbidities: 1. 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 Atrial fibrillation on anticoagulation 4. Obstructive sleep apnea on CPAP 5. Chronic kidney disease stage 3B 6. 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 Chronic hypoxemic respiratory failure 8. Mild coronary artery disease 9. 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 First hospitalization he was treated for presumed bacterial pneumonia in setting of lobar consolidation and received a course of ceftriaxone and doxycycline which was deescalated to cefpodoxime+ doxy for a 7 day course. Shortly after this 1st discharge and completion of antibiotics he had worsening of respiratory symptoms and was readmitted for right middle lobe pneumonia, this time receiving initially vancomycin and cefepime and was started on prednisone for possible interstitial lung disease flare (40 mg for 5 days). Per documentation he reported this improved his breathing. This was a new diagnosis of ILD. Diuretic regimen was intensified due to cardiomegaly, bilateral pleural effusions, and increased weight despite normal NT proBNP. About 2 weeks later he had worsening dyspnea and fever at home which prompted return to emergency department. This time chest imaging showed improved upper lobe ground-glass opacification that with persistent micronodularity and ground- glass opacities in the lung bases. There was also progression of reticulation and traction bronchiectasis especially notable in the lower lobes bilaterally compared to chest CT from 2 weeks prior. Due to suspicion for progression of interstitial lung disease he was restarted on prednisone at higher dose 60 mg daily which he continued with taper down to 40 mg after 1 week then down to 20 mg after a 2nd week. He returned to the ER on 12/21 when he had increasing dyspnea, increasing oxygen needs which were associated with a reduction in his prednisone to 20 mg.He was recommended by Pulmonary consult service to increase prednisone to 30 mg daily for 1 week before resuming now planned reduction back 20 mg daily. Chest imaging obtained at the time of this last admission showed improvement in ground-glass opacification and nodularity in the upper lobes as well as persistence of reticulation and traction bronchiectasis in lower lobes. Overall this fibrosis appears mildly increased between December study on 12/[address] study on 11/18. Indeed, compared to September 2023 there is also minimal worsening in his lower lobepredominant fibrosis. He has pleural plaques. Autoimmune testing is negative for KRIS, CCP, Sjogren antibodies, CASE REVIEWER, Scl 70, ANCA. Microbiologic testing including blood cultures and nasopharyngeal viral/atypical organism PCR has been negative during these last hospitalizations. He has never been able to produce a sputum sample. Fungitell negative on 12/07. He has had intermittently elevated serum eosinophils to highest 870 during these hospital stays which have been responsive to steroids. TTE obtained 12/22/2024 showed unchanged mild RV enlargement and elevated RVSP to 38 mmHg (40 mmHg in August 2023). He had telomere length measurement by flow fish performed in November which showed granulocyte telomere length <10th percentile for age and lymphocyte tubular length 50th percentile for age. He is currently on prednisone 20 mg daily. FVC has been declining since 2021. No significant change in TLC or DLCO over similar period. Total IgE has repeatedly been normal, last checked 2023 (10.2), Aspergillus fumigatus IgE was negative in 2021. He has been experiencing worsening shortness of breath since early October, with a significant decline in his exercise tolerance. He can now walk about 150 feet before needing to stop due to breathlessness, compared to his previous ability to walk several city blocks without stopping earlier thisyear. His oxygen saturation levels range between 88 to 94% during these episodes, and he uses supplemental oxygen at one liter per minute during activity. He has a history of eosinophilic asthma, which he feels is well-controlled as he is not experiencing wheezing or coughing. He is currently on 20 mg of prednisone daily, which he feels helps with his shortness of breath. He has been on this dose for the past five days after being discharged from [facility]. 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 He has noticed a progression in lung scarring over the past few months. No current fevers, chills, or infections. He has not had any exposure to birds or down products, nor has he undergone chemotherapy or radiation. He experiences dry mouth, which he attributes to his medication, torsemide. He also reports a dull ache in his back when reaching for objects above shoulder height, but no significant muscle weakness or rashes. He has not received recent vaccinations for flu, COVID-19, or RSV. No known family history of pulmonary fibrosis. OBJECTIVE VITAL SIGNS SpO2 92% Physical Exam Physical Exam Physical Exam CHEST: Crackles at lung bases. Nonlabored breathing on 1 L NC. CARDIOVASCULAR: Heart sounds normal, no murmurs. 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 Symptoms include exertional dyspnea, and prednisone provides symptomatic relief. A rapid de-escalation in prednisone resulted in worsening of symptoms. Ofev was discussed to slow progression of di sease, noting GI side effects in one-third of patients. He will think about whether he would like to initiate antifibrotic and I will call him in 1 week to confirm his decision. Continue prednisone 20 mg daily for two weeks, then taper to 15 mg for 2 weeks, 10 mg for 2 weeks, 5 mg for 2 weeks, then off. Continue Bactrim while he remains on prednisone 20 mg or greater. Once he is down to prednisone less than 20 mg (for example 15 mg) then Bactrim can be stopped. He has a referral to pulmonary rehab which I strongly recommend. We will perform oxygen titration as well as nocturnal oxygen study to ensure he is well-supported. I will also refer him to pulmonary hypertension. His RVSP is nearly above limits of normal for age but he does have some peripheral edema and there has been this question of whether heart failure is contributing to his recent episodes of worsening dyspnea. I would like to see whether they feel right heart catheterization is reasonable or whether we should just check serial echos every 6 months orso to assess for development of PH. I also highly recommend he receive respiratory infection vaccinations for preventive purposes. He is hesitant to receive any but I explained their efficacy (RSV, flu, COVID) and the protective effectthey have on development of respiratory failure even in patients who do get infected. He will thinkmore about this. He is already appropriately received strep pneumo vaccinations. Eosinophilic asthma, well controlled Asthma is well controlled with Dupixent. Current symptoms align with fibrosis progression rather than asthma. Continue current asthma management. He will follow up with Dr. Palencia for asthma in January. Chronic hypoxemia requiring supplemental oxygen with activity Chronic hypoxemia is managed with supplemental oxygen. Saturation drops with exertion but remains above 88%. Continue supplemental oxygen with activity. Recheck oxygen levels with activity for appropriate prescription. His mobility is limited due to his respiratory failure. He is requesting a power wheelchair which is reasonable. I will order this and he can work with his local wheelchair supply store to get this processed. Volume overload due to heart dysfunction Volume overload is likely from heart dysfunction, causing fluid retention, and is managed with torsemide. Labs indicate fluid retention. Order labs to assess fluid status and adjust torsemide dosage based on results. Case to be discussed with Dr. Palencia and note to be addended as needed. Addendum 01/11/2025: After discussion with . Mr. 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 Palencia we will pause initiation of antifibrotic for right now. He will see her again for follow-up in 4 weeks.I advised that because of his slight hypovolemic fluid status on exam he should continue torsemide 60 mg rather than reduce dose to 40 mg as previously planned. I will have this script sent to his care facility. I also confirmed that he should be on renally dosed rivaroxaban 50 mg daily based on his creatinine clearance. ONS SERVER ONS SERVER ONS SERVER documented in this encounter Miscellaneous Notes * Addendum Note - Blanco Spivey M.D. - 01/04/2025 12:30 PM CSTAddended by: BLANCO SPIVEY on: 01/08/2025 01:56 PM Modules accepted: Orders ONS SERVER documented in this encounter Plan of Treatment DateTypeDepartmentCare Team (Latest Contact Info)Nypgczfwtqq40/29/2025 10:15 AM CSTClinical Communication Virtual Review in [place], [place] [address] [place] [address] 02/12/2025 11:15 AM CSTAppointment Department of Radiology, [address] [address] Lilli Moore M.D. [address] [place] [phone] 02/12/2025 11:50 AM CSTAppointment Department of Laboratory Medicine and Pathology, [facility] in [address] [address] Lilli Moore M.D. [address] [place] [phone] 02/12/2025 1:30 PM CSTOffice Visit Division of Pulmonary Medicine in [address] [address] Lilli Moore M.D. [address] [place] [phone] NameTypePriorityAssociated DiagnosesOrder ScheduleCardiovascular Disease - Pulmonary hypertension consult (clinic)Outpatient ReferralRoutine Lung Interstitial Disease (HCC) Expected: 01/04/2025, Expires: 04/06/2026documented as of this encounter Results * Oxygen Titration (01/07/2025 9:49 AM SUMMONS SERVER)ComponentValueRef RangeTest Method Analysis TimePerformed AtPathologist Signature[1] Inspired Gas (L/min)Room air MMODAL[1] InterfaceN/AMMODAL[1] Speed (mph)RestMMODAL[1] Grade (%)0.0MMODAL[1] Time (min)10MMODAL[1] SpO2 (%)98MMODAL[1] Heart Gmlk76NVFNKC[1] Ratings of Perceived Exertion (6-20)6MMODAL[2] Inspired Gas (L/min)Room airMMODAL[2] InterfaceN/AMMODAL[2] Speed (mph)1.2MMODAL[2] Grade (%)0.0MMODAL[2] Time (min) 3MMODAL[2] SpO2 (%)96MMODAL[2] Heart Gcka386VHQDRF[2] Ratings of Perceived Exertion (6-20)12MMODAL[3] Inspired Gas (L/min)Room airMMODAL[3] InterfaceN/A MMODAL[3] Speed (mph)1.2MMODAL[3] Grade (%)1.0MMODAL[3] Time (min)1.5MMODAL[3] SpO2 (%)95MMODAL[3] Heart Apld523XMQHGJ[3] Ratings of Perceived Exertion (6-20)14MMODALCommentTotal exercise time: 4.5 minutesMMODALSpecimen (Source) Anatomical Location / LateralityCollection Method / VolumeCollection Time Received Time Narrative Authorizing ProviderResult TypeResult StatusReid Yoseph Spivey M.D.PFT ORDERABLES Final ResultPerforming OrganizationAddressCity/State/ZIP CodePhone Number MMODAL NA * Home Overnight Oximetry (01/07/2025)Specimen (Source)Anatomical Location / LateralityCollection Method / VolumeCollection TimeReceived Time01/07/2025 Narrative ROBERT AKBAR EA - 01/09/2025 8:06 AM SUMMONS SERVER Procedure: Overnight oximetry was performed on room air and CPAP 15. The patient stated they did not consume alcohol and did not take sedative medication on the night of the study, and stated quality of sleep was the same as usual. Percival Sleepiness Scale was 9. The time spent <89% was 1.3 minutes, with a 4% desaturation index of 1.5. Impression: There appears to be adequate support on current CPAP settings. ??Please note the persistence of heart rate variability and tachycardia during sleep. Authorizing ProviderResult TypeKenny Spivey M.D.PFT ORDERABLES Final ResultPerforming OrganizationAddressCity/State/ZIP CodePhone Number COLRAIN NVISION EAP * DX Chest AP or PA and Lateral 2 Views (01/04/2025 3:53 PM SUMMONS SERVER)Anatomical RegionLateralityModalityChest, Thoracic RST LOS, Thoracic ARZ LOS, Thoracic FLA LOSN/ADigital RadiographySpecimen (Source)Anatomical Location / Laterality Collection Method / VolumeCollection TimeReceived Time Impressions 01/04/2025 4:04 PM SUMMONS SERVER No change since 12/21/2024. 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 Small lung volumes. Pacemaker. Calcified aorta. Degenerative changes of the spine. Chest otherwise negative. Narrative 01/04/2025 4:04 PM SUMMONS SERVER EXAM: DX CHEST AP OR PA AND LATERAL 2 VIEWS Procedure Note Marcos Crisostomo M.D. - 01/04/2025 EXAM: DX CHEST AP OR PA AND LATERAL 2 VIEWS IMPRESSION: No change since 12/21/2024. Stable interstitial fibrotic changes inpredominantly in the mid and lower lungs. Small lung volumes. Pacemaker.Calcified aorta. Degenerative changes of the spine. Chest otherwisenegative. Authorizing ProviderResult TypeKenny Spivey M.D.IMG DIAGNOSTIC IMAGING PROCEDURESFinal Result * 6 MINUTE WALK (01/04/2025 3:00 PM SUMMONS SERVER)Specimen (Source)Anatomical Location / LateralityCollection Method / VolumeCollection TimeReceived Time Narrative Gauri Rabago M.D., M.P.H. - 01/04/2025 3:00 PM SUMMONS SERVER Gauri Rabago M.D., M.P.H. 01/05/2025 3:30 PM Six Minute Walk Performed by: Kya Kat CEP Authorized by: Blanco Spivey M.D. ?? Were medications taken in the last 24 hours?: ?? PRE WALK Assistive Device: ??4 Wheel Walker 6 Min Walk Distance Type: ??Track Height (cm): ??168 Weight (kg): ??87 BMI: ??30.8 Resting Heart Rate: ??90 Heart Rate Source: ??Pulse Oximeter Resp Rate: Resting SpO2: ??96 SpO2 Site: ??Finger Resting BP: ??126/64 BP Cuff Arm: ??Left BP Cuff Size: ??LargeSupplemental Oxygen used: ??Supplemental Oxygen Not Used Isai Dyspnea: ??2 - Slight Isai Fatigue: ??4 - Somewhat Severe POST WALK Heart Rate: ??115 Heart Rate Source: ??Pulse Oximeter SpO2: ??88 BP: ??132/52 BP Cuff Side: ??Left Isai Dyspnea: ??7 - Very Severe Isai Fatigue: ??7 - Very Severe Time of Test: ??03:10 SUMMONS SERVER Total Distance Walked (Feet): ??850 Total Distance Walked (Meters): ??259.08 Total # of Times Stopped: ??0 Time Stopped (Seconds): ??0 Time Walked (Seconds): ??360 CALCULATIONS Estimated MPH: ??1.6 Estimated METs: ??2.23 % of Predicted Distance: ??72.67 Authorizing ProviderResult TypeResult StatusRejaylyn Spivey M.D.CV STRESS PROCEDURESFinal Result * ECG 12 Lead (01/04/2025 2:47 PM SUMMONS SERVER)ComponentValueRef RangeTest MethodAnalysis TimePerformed AtPathologist SignatureVentricular Rate ECG/Vhf45AZWOOTJAN Vwknlagt022tyWWXUACFB Pktzjtgz097xuCSRNKL Cticwzup380xtASCUTFC Nduhykkz404pz MUSEP Qxip61vwmxhaaVHXSF [place]-74degreesMUSET Wave Tlti25pwvostlWKVRDxiomxjk (Source)Anatomical Location / LateralityCollection Method / VolumeCollection TimeReceived Time01/04/2025 2:47 PM CST01/04/2025 2:54 PM SUMMONS SERVER Impressions MUSE - 01/04/2025 2:54 PM SUMMONS SERVER Atrial-sensed ventricular-paced rhythm Sinus rhythm Premature atrial complexes When compared with ECG of 21-Dec-2024 17:26, QT has shortened Reviewed by HARRIET Solorio Narrative Procedure Note Benja Cotter M.D. - 01/04/2025 IMPRESSION: Atrial-sensed ventricular-paced rhythm Sinus rhythm Premature atrial complexes When compared with ECG of 21-Dec-2024 17:26, QT has shortened Reviewed by HARRIET Solorio Authorizing ProviderResult TypeResult StatusReid H Allyssa GaoECG ORDERABLES Final ResultPerforming OrganizationAddressCity/State/ZIP CodePhone Number MUSE NA * (ABNORMAL) Comprehensive Metabolic Panel (01/04/2025 2:23 PM SUMMONS SERVER)Component ValueRef RangeTest MethodAnalysis TimePerformed AtPathologist Signature Potassium, S3.83.6 - 5.2 mmol/L103/06/2024 3:29 PM CSTDTLSodium, W296046 - 145 mmol/L103/06/2024 3:29 PM CSTDTLChloride, S9898 - 107 mmol/L103/06/2024 3:29 PM CSTDTLBicarbonate, S2922 - 29 mmol/L103/06/2024 3:29 PM CSTDTLAnion Don287 - 15 01/04/2025 3:29 PM CSTDTLBUN (Blood Urea Nitrogen), S238 - 24 mg/dL01/04/2025 3:29 PM CSTDTLCreatinine1.53(H)0.74 - 1.35 mg/dL01/04/2025 3:29 PM CSTDTL Estimated GFR (eGFR)43(L)>=60 mL/min/BSA01/04/2025 3:29 PM CSTDTLComment: Estimated GFR calculated using the 2020 CKD_EPI creatinine equation. Calcium, Total, S9.28.8 - 10.2 mg/dL01/04/2025 3:29 PM CSTDTLGlucose, S8970 - 140 mg/dL01/04/2025 3:29 PM CSTDTLProtein, Total, S5.8(L)6.3 - 7.9 g/dL 01/04/2025 3:29 PM CSTDTLAlbumin, S3.93.5 - 5.0 g/dL01/04/2025 3:29 PM CSTDTL Aspartate Aminotransferase (AST), S418 - 48 U/L103/06/2024 3:29 PM CSTDTLAlkaline Phosphatase, S7840 - 129 U/L103/06/2024 3:29 PM CSTDTLAlanine Aminotransferase (ALT), S527 - 55 U/L103/06/2024 3:29 PM CSTDTLBilirubin, Total, S0.50.0 - 1.2 mg/dL01/04/2025 3:29 PM CSTDTLSpecimen (Source)Anatomical Location / Laterality Collection Method / VolumeCollection TimeReceived TimeBlood (Blood, Venous) 01/04/2025 2:23 PM CST01/04/2025 2:45 PM SUMMONS SERVER Narrative Authorizing ProviderResult TypeResult StatusBlanco Spivey M.D.LAB BLOOD ADD-ONFinal ResultPerforming OrganizationAddressCity/State/[place] [address], [facility] [place] [address] * NT-Pro B-Type Natriuretic Peptide (BNP) (01/04/2025 2:23 PM SUMMONS SERVER)ComponentValue Ref RangeTest MethodAnalysis TimePerformed AtPathologist SignatureNT-Pro BNP 482<=540 pg/mL01/04/2025 3:29 PM CSTDTLComment: NT-proBNP values less than 300 pg/mL have [...] Method / Volume Collection TimeReceived TimeBlood (Blood, Venous)01/04/2025 2:23 PM SUMMONS SERVER 01/04/2025 2:45 PM SUMMONS SERVER Narrative Authorizing ProviderResult TypeResult StatusBlanco Spivey M.D.LAB BLOOD ADD-ONFinal ResultPerforming OrganizationAddressCity/State/ZIP CodePhone Number [facility] [place] [address], [facility] [address] [place] [address] * (ABNORMAL) CBC with Differential, Blood (01/04/2025 2:23 PM SUMMONS SERVER)ComponentValue Ref RangeTest MethodAnalysis TimePerformed AtPathologist SignatureHemoglobin 12.7(L)13.2 - 16.6 g/dL01/04/2025 2:56 PM TZUMRTEgzukwupps99.838.3 - 48.6 % 01/04/2025 2:56 PM CSTDTLErythrocytes4.584.35 - 5.65 x10(12)/L103/06/2024 2:56 PM BLCSATJHH91.978.2 - 97.9 fL01/04/2025 2:56 PM CSTDTLRBC Distrib Width17.1 (H)11.8 - 14.5 %01/04/2025 2:56 PM CSTDTLPlatelet Pgrtt139573 - 317 x10(9)/L 01/04/2025 2:56 PM CSTDTLLeukocytes9.63.4 - 9.6 x10(9)/L103/06/2024 2:56 PM SUMMONS SERVER DTLNeutrophils8.15(H)1.56 - 6.45 x10(9)/L103/06/2024 2:56 PM CSTDHPMLymphocytes 0.63(L)0.95 - 3.07 x10(9)/L103/06/2024 2:56 PM CSTDTLMonocytes0.700.26 - 0.81 x10(9)/L103/06/2024 2:56 PM CSTDTLEosinophils0.110.03 - 0.48 x10(9)/L103/06/2024 2:56 PM CSTDTLBasophils0.040.01 - 0.08 x10(9)/L103/06/2024 2:56 PM CSTDTL Specimen (Source)Anatomical Location / LateralityCollection Method / Volume Collection TimeReceived TimeBlood (Blood, Venous)01/04/2025 2:23 PM SUMMONS SERVER 01/04/2025 2:45 PM SUMMONS SERVER Narrative Authorizing ProviderResult TypeResult StatusRejaylyn Spivey M.D.LAB BLOOD ADD-ONFinal ResultPerforming OrganizationAddressCity/State/ZIP CodePhone Number [facility] [address] [place] [address], [place] DTL [facility] [address] [place] [address] [facility] [address] [place] [address] documented in this encounter Visit Diagnoses Diagnosis 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
--- OUTSIDE RECORDS SUMMARY | 2025-01-04 14:00 | XMS_ITS | Encounter Summary ---
Author Organization [facility] Address [address] [place] [address] Care Team Providers Care Coat Operator Name Role Phone Elsewhere, Pcp Primary Care Provider Unavailabl e Encounter Details DateTypeDepartmentCare Team (Latest Contact Info)Mufopksndsw09/21/2025 2:00 PM ADMINISTRATIVE OFFICE MANAGER - 01/04/2025 2:59 PM CSTHospital Encounter Department of Laboratory Medicine and Pathology, [facility] in [place], [place] [address] [place] [address] Blanco Spivey M.D. [address] [place] [address] Lung Interstitial Disease (HCC) Discharge Disposition: Home or Self Care Social History Tobacco UseTypesPacks/DayYears UsedDateSmoking Tobacco: IiejyxEkejxicvbs990 02/15/1956 - 02/14/1966Smokeless Tobacco: FormerChewQuit: 02/14/1966Alcohol Use [...] threatened to shut off services in your home?12/22/2024Housing StabilityAnswerDate RecordedWhat is your living situation today?I have a steady place to live12/22/2024Education AnswerDate RecordedWhat is the highest level of school you have completed or the highest degree you have received?GED or qyoeexlwxr81/05/2020Sex and Gender InformationValueDate RecordedSex Assigned at ZqjifYfxq06/05/2018 9:08 AM CDT Legal QukDdhp9103/18/2016 7:31 AM CSTGender YirtguwfIhyp62/05/2018 9:08 AM CDT Sexual RxeeevksiggAwchohky48/05/2018 9:08 AM CDTOccupationIndustryJob Start Date Job End [...] Take 10 mg by mouth at bedtime.11/16/2019 baomqtafezyr-kxkt-IQ-Ca-minerals 400 mcg (folic acid) tablet Take 1 [...] daily Indications: Prophylaxis, medical. 30 tablet torsemide 60 mg tablet Take 60 mg by mouth daily. 60 tablet /documented as of this encounter Plan of Treatment DateTypeDepartmentCare Team (Latest Contact Info)Xvzxdgkelui28/29/2025 10:15 AM CSTClinical Communication Virtual Review in [place], [place] [address] [place] [address] 02/12/2025 11:15 AM CSTAppointment Department of Radiology, [facility], in [place], [place] [address] [place] [phone] Lilli Moore M.D. [address] [place] [phone] 02/12/2025 11:50 AM CSTAppointment Department of Laboratory Medicine and Pathology, [facility] in [place], [place] [address] [place] [phone] Lilli Moore M.D. [address] [place] [phone] 02/12/2025 1:30 PM CSTOffice Visit Division of Pulmonary Medicine in [place], [place] [address] [place] [phone] Lilli Moore M.D. [address] [place] [phone] documented as of this encounter Procedures Procedure NamePriorityDate/TimeAssociated DiagnosisCommentsNT-PRO B-TYPE NATRIURETIC PEPTIDE (BNP), MVkfxlbw22/21/2025 2:23 PM ADMINISTRATIVE OFFICE MANAGER Lung Interstitial Disease (HCC) CBC WITH DIFFERENTIAL, NFcatytk78/21/2025 2:23 PM ADMINISTRATIVE OFFICE MANAGER Lung Interstitial Disease (HCC) COMPREHENSIVE METABOLIC PANEL, S/HCjwobzc59/21/2025 2:23 PM ADMINISTRATIVE OFFICE MANAGER Lung Interstitial Disease (HCC) documented in this encounter Results * (ABNORMAL) Comprehensive Metabolic Panel (01/04/2025 2:23 PM ADMINISTRATIVE OFFICE MANAGER)Component ValueRef RangeTest MethodAnalysis TimePerformed AtPathologist Signature Potassium, S3.83.6 - 5.2 mmol/L11/ 3:29 PM CSTDTLSodium, H405830 - 145 mmol/L103/06/2024 3:29 PM CSTDTLChloride, S9898 - 107 mmol/L103/06/2024 3:29 PM CSTDTLBicarbonate, S2922 - 29 mmol/L103/06/2024 3:29 PM CSTDTLAnion Ptb883 - 15 01/04/2025 3:29 PM CSTDTLBUN (Blood [...] Venous) 01/04/2025 2:23 PM CST01/04/2025 2:45 PM ADMINISTRATIVE OFFICE MANAGER Narrative Authorizing ProviderResult TypeResult StatusRejaylyn CoteD.LAB BLOOD ADD-ONFinal ResultPerforming OrganizationAddressCity/State/ZIP CodePhone Number [address] [address], [place] [address] * NT-Pro B-Type Natriuretic Peptide (BNP) (01/04/2025 2:23 PM ADMINISTRATIVE OFFICE MANAGER)ComponentValue Ref RangeTest MethodAnalysis TimePerformed AtPathologist SignatureNT-Pro BNP [...] Collection TimeReceived TimeBlood (Blood, Venous)01/04/2025 2:23 PM ADMINISTRATIVE OFFICE MANAGER 01/04/2025 2:45 PM ADMINISTRATIVE OFFICE MANAGER Narrative Authorizing ProviderResult TypeResult StatusBlnaco Spivey M.D.LAB BLOOD ADD-ONFinal ResultPerforming OrganizationAddressCity/State/ZIP CodePhone Number [facility] [address] [place] [address], [address] [address] * (ABNORMAL) CBC with Differential, Blood (01/04/2025 2:23 PM ADMINISTRATIVE OFFICE MANAGER)Component ValueRef RangeTest MethodAnalysis TimePerformed AtPathologist Signature Hozwknztmr61.7(L)13.2 - 16.6 g/dL01/04/2025 2:56 PM NGUGLATtnayfcxdg95.838.3 - 48.6 %01/04/2025 2:56 PM CSTDTLErythrocytes4.584.35 - 5.65 x10(12)/L103/06/2024 2:56 PM SOMFJWZMZ84.978.2 - 97.9 fL01/04/2025 2:56 PM CSTDTLRBC Distrib Width 17.1(H)11.8 - 14.5 %01/04/2025 2:56 PM CSTDTLPlatelet Apdwc458223 - 317 x10(9)/01/04/2025 2:56 PM CSTDTLLeukocytes9.63.4 - 9.6 x10(9)/L103/06/2024 2:56 PM CSTDTLNeutrophils8.15(H)1.56 - 6.45 x10(9)/01/04/2025 2:56 PM CSTDHPM Lymphocytes0.63(L)0.95 - 3.07 x10(9)/01/04/2025 2:56 PM CSTDTLMonocytes0.70 0.26 - 0.81 x10(9)/01/04/2025 2:56 PM CSTDTLEosinophils0.110.03 - 0.48 x10(9)/L103/06/2024 2:56 PM CSTDTLBasophils0.040.01 - 0.08 x10(9)/01/04/2025 2:56 PM CSTDTLSpecimen (Source)Anatomical Location / LateralityCollection Method / VolumeCollection TimeReceived TimeBlood (Blood, Venous)01/04/2025 2:23 PM CST01/04/2025 2:45 PM ADMINISTRATIVE OFFICE MANAGER Narrative Authorizing ProviderResult TypeResult StatusReid Yoseph Spivey M.D.LAB BLOOD ADD-ONFinal ResultPerforming OrganizationAddressCity/State/ZIP CodePhone Number [facility] [address] [place] [address], [place] D[place] [facility] [address] [place] [address] [facility] [address] [place] [address] documented in this encounter Visit Diagnoses Diagnosis Lung Interstitial Disease (HCC) documented in this encounter Care Teams Team MemberRelationshipSpecialtyStart DateEnd Date Elsewhere, Pcp PCP - GeneralInternal Xnfjrdav15/8/25documented as of this encounter
--- OUTSIDE RECORDS SUMMARY | 2025-01-04 15:00 | XMS_ITS | Encounter Summary ---
Author Organization [facility] Address [address] [place] [address] Care Team Providers Care Nurse Staff Name Role Phone Elsewhere, Pcp Primary Care Provider Unavailabl e Reason for Referral * Cardiovascular-Diagnostic (Routine) - ClosedSpecialtyDiagnoses / Procedures Referred By ContactReferred To Contact Diagnoses Lung Interstitial Disease (HCC) Procedures Six Minute Walk Blanco Spivey M.D. [address] [place] [address] Phone: tel: fax: [facility] Referral IDStatusReasonStart DateExpiration DateVisits RequestedVisits [id number]/21/20252/ OR PROCUREMENT SPECIALIST Reason for Visit * Cardiovascular-Diagnostic (Routine) - ClosedSpecialtyDiagnoses / Procedures Referred By ContactReferred To Contact Diagnoses Lung Interstitial Disease (HCC) Procedures Six Minute Walk Blanco Spivey M.D. [address] [place] [address] Phone: tel: fax: [facility] Referral IDStatusReasonStart DateExpiration DateVisits RequestedVisits [id number]/21/82158/ Encounter Details DateTypeDepartmentCare Team (Latest Contact Info)Ipmxctzuwsb14/21/2025 3:00 PM SENIOR PROCUREMENT SPECIALIST - 01/04/2025 3:41 PM CSTHospital Encounter Department of Cardiac Rehabilitation in [place], [place] [address] [place] [address] Blanco Spivey M.D. [address] [place] [address] Lung Interstitial Disease (HCC) Discharge Disposition: Home or Self Care Social History Tobacco UseTypesPacks/DayYears UsedDateSmoking Tobacco: ZhtbrjSeyavnwcmh075 02/15/1956 - 02/14/1966Smokeless Tobacco: FormerChewQuit: 02/14/1966Alcohol Use [...] the highest degree you have received?GED or qqfzotfjeo43/05/2020Sex and Gender InformationValueDate RecordedSex Assigned at BctxuSxng34/05/2018 9:08 AM CDT Legal JysMnmk3803/18/2016 7:31 AM CSTGender XdlbzgrjMufm14/05/2018 9:08 AM CDT Sexual NnqryqhttjmTmecpghe69/05/2018 9:08 AM CDTOccupationIndustryJob Start Date Job End [...] Take 10 mg by mouth at bedtime.11/16/2019 gexhwpzwtqbg-urwl-LD-Ca-minerals 400 mcg (folic acid) tablet Take 1 [...] mouth daily for 11 days Indications: Prophylaxis, medical. sulfamethoxazole-trimethoprim (Bactrim) 400-80 mg per tablet Indications:Prophylaxis, medicalTake 1 tablet by mouth daily Indications: Prophylaxis, medical. 30 tablet torsemide 60 mg tablet Take 60 mg by mouth daily. 60 tablet /documented as of this encounter Procedure Notes * Kya Kat CEP - 01/04/2025 3:00 PM CSTAssociated Order(s): Six Minute Walk Pre-Procedure Diagnose(s): Lung Interstitial Disease (HCC) Post-Procedure Diagnose(s): Lung Interstitial Disease (HCC) Six Minute Walk Performed by: Kya Kat CEP Authorized by: Blanco Spivey M.D. Were medications taken in the last 24 hours?: PRE WALK Assistive Device: 4 Wheel Walker 6 Min Walk Distance Type: Track Height (cm): 168 Weight (kg): 87 BMI: 30.8 Resting Heart Rate: 90 Heart Rate Source: Pulse Oximeter Resp Rate: Resting SpO2: 96 SpO2 Site: Finger Resting BP: 126/64 BP Cuff Arm: Left BP Cuff Size: LargeSupplemental Oxygen used: Supplemental Oxygen Not Used Isai Dyspnea: 2 - Slight Isai Fatigue: 4 - Somewhat Severe POST WALK Heart Rate: 115 Heart Rate Source: Pulse Oximeter SpO2: 88 BP: 132/52 BP Cuff Side: Left Isai Dyspnea: 7 - Very Severe Isai Fatigue: 7 - Very Severe Time of Test: 03:10 SENIOR PROCUREMENT SPECIALIST Total Distance Walked (Feet): 850 Total Distance Walked (Meters): 259.08 Total # of Times Stopped: 0 Time Stopped (Seconds): 0 Time Walked (Seconds): 360 CALCULATIONS Estimated MPH: 1.6 Estimated METs: 2.23 % of Predicted Distance: 72.67 Cosigned by Gauri Rabago M.D., M.P.H. at 01/05/2025 3:30 PM SENIOR PROCUREMENT SPECIALIST OR PROCUREMENT SPECIALIST OR PROCUREMENT SPECIALIST Associated attestation - Gauri Rabago M.D., M.P.H. - 01/05/2025 3:30 PM SENIOR PROCUREMENT SPECIALIST Interpretation: Six minute walk data was reviewed. I agree with the reported results. Vital signs responded appropriately throughout the test, except for oxygen saturations. Patient with below average functional exercise capacity with evidence of functional limitation. documented in this encounter Plan of Treatment DateTypeDepartmentCare Team (Latest Contact Info)Jrgyqyraauz27/29/2025 10:15 AM CSTClinical Communication Virtual Review in [address] [phone] 02/12/2025 11:15 AM CSTAppointment Department of Radiology, [facility] in [address] [phone] Lilli Moore M.D. [address] [place] [phone] 02/12/2025 11:50 AM CSTAppointment Department of Laboratory Medicine and Pathology, [facility] in [address] [phone] Lilli Moore M.D. [address] [place] [phone] 02/12/2025 1:30 PM CSTOffice Visit Division of Pulmonary Medicine in [place], [place] [address] [place] [address] Lilli Moore M.D. [address] [place] [address] documented as of this encounter Procedures Procedure NamePriorityDate/TimeAssociated DiagnosisComments6 MINUTE WALKRoutine 01/04/2025 3:00 PM SENIOR PROCUREMENT SPECIALIST Lung Interstitial Disease (HCC) documented in this encounter Results * 6 MINUTE WALK (01/04/2025 3:00 PM SENIOR PROCUREMENT SPECIALIST)Specimen (Source)Anatomical Location / LateralityCollection Method / VolumeCollection TimeReceived Time Narrative Gauri Rabago M.D., M.P.H. - 01/04/2025 3:00 PM SENIOR PROCUREMENT SPECIALIST Gauri Rabago M.D., M.P.H. 01/05/2025 3:30 PM Six Minute Walk Performed by: Kya Kat, CEP Authorized by: Blanco Spivey M.D. ?? [...] - Very Severe Time of Test: ??03:10 SENIOR PROCUREMENT SPECIALIST Total Distance Walked (Feet): ??850 Total Distance Walked (Meters): ??259.08 Total # of Times Stopped: ??0 Time Stopped (Seconds): ??0 Time Walked (Seconds): ??360 CALCULATIONS Estimated MPH: ??1.6 Estimated METs: ??2.23 % of Predicted Distance: ??72.67 Authorizing ProviderResult TypeResult StatusRejaylyn Spivey M.D.CV STRESS PROCEDURESFinal Result documented in this encounter Visit Diagnoses Diagnosis Lung Interstitial Disease (HCC) documented in this encounter Care Teams Team MemberRelationshipSpecialtyStart DateEnd Date Elsewhere, Pcp PCP - GeneralInternal Ehkucxcc62/8/25documented as of this encounter
--- OUTSIDE RECORDS SUMMARY | 2025-01-04 15:42 | XMS_ITS | Encounter Summary ---
Author Organization [facility] Address [address] [place] [address] Care Team Providers Care Technical Editor Name Role Phone Elsewhere, Pcp Primary Care Provider Unavailabl e Reason for Referral * Outpatient (Routine) - ClosedSpecialtyDiagnoses / ProceduresReferred By ContactReferred To Contact Diagnoses Lung Interstitial Disease (HCC) Procedures DX Chest AP or PA and Lateral 2 Views Blanco Spivey M.D. [address] [place] [address] Phone: tel: fax: [facility] Referral IDStatusReasonStart DateExpiration DateVisits RequestedVisits [id number]/21/20252/ LER MACHINE OPERATOR HELPER Reason for Visit * Outpatient (Routine) - ClosedSpecialtyDiagnoses / ProceduresReferred By ContactReferred To Contact Diagnoses Lung Interstitial Disease (HCC) Procedures DX Chest AP or PA and Lateral 2 Views Blanco Spivey M.D. [address] [place] [address] Phone: tel: fax: [facility] Referral IDStatusReasonStart DateExpiration DateVisits RequestedVisits [id number]/21/20252/ Encounter Details DateTypeDepartmentCare Team (Latest Contact Info)Lcmbvrxpvxm00/21/2025 3:42 PM TUMBLER MACHINE OPERATOR HELPER - 01/04/2025 11:59 PM CSTHospital Encounter Department of Radiology, [facility], in [place], [place] [address] [place] [phone] Blanco Spivey M.D. [address] [place] [phone] Lung Interstitial Disease (HCC) Discharge Disposition: Home or Self Care Social History Tobacco UseTypesPacks/DayYears UsedDateSmoking Tobacco: VgteosPwenkwucae981 02/15/1956 - 02/14/1966Smokeless Tobacco: FormerChewQuit: 02/14/1966Alcohol Use [...] the highest degree you have received?GED or qsiilzvwuo88/05/2020Sex and Gender InformationValueDate RecordedSex Assigned at QthnvSveu66/05/2018 9:08 AM CDT Legal ClyQqax6803/18/2016 7:31 AM CSTGender DfviwuzsTglh60/05/2018 9:08 AM CDT Sexual KogssntldruEslsyhws27/05/2018 9:08 AM CDTOccupationIndustryJob Start Date Job End [...] Take 10 mg by mouth at bedtime.11/16/2019 tvqnpvluepao-eoui-YK-Ca-minerals 400 mcg (folic acid) tablet Take 1 [...] Plan of Treatment DateTypeDepartmentCare Team (Latest Contact Info)Tyvrweseyus79/29/2025 10:15 AM CSTClinical Communication Virtual Review in [place], [place] [address] [place] [address] 02/12/2025 11:15 AM CSTAppointment Department of Radiology, [facility] in [place], [place] [address] [place] [phone] Lilli Moore M.D. [address] [place] [phone] 02/12/2025 11:50 AM CSTAppointment Department of Laboratory Medicine and Pathology, [facility] in [place], [place] [address] [place] [phone] Lilli Moore M.D. [address] [place] [phone] 02/12/2025 1:30 PM CSTOffice Visit Division of Pulmonary Medicine in [place], [place] [address] [place] [address] Lilli Moore M.D. [address] [place] [address] documented as of this encounter Procedures Procedure NamePriorityDate/TimeAssociated DiagnosisCommentsDX CHEST AP OR PA AND LATERAL 2 VIEWSRAD - Routine (most inpatients and all outpatients)01/04/2025 3:53 PM TUMBLER MACHINE OPERATOR HELPER Lung Interstitial Disease (HCC) documented in this encounter Results * DX Chest AP or PA and Lateral 2 Views (01/04/2025 3:53 PM TUMBLER MACHINE OPERATOR HELPER)Anatomical RegionLateralityModalityChest, Thoracic RST LOS, Thoracic ARZ LOS, Thoracic FLA LOSN/ADigital RadiographySpecimen (Source)Anatomical Location / Laterality Collection Method / VolumeCollection TimeReceived Time Impressions 01/04/2025 4:04 PM TUMBLER MACHINE OPERATOR HELPER No change since 12/21/2024. 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 Small lung volumes. Pacemaker. Calcified aorta. Degenerative changes of the spine. Chest otherwise negative. Narrative 01/04/2025 4:04 PM TUMBLER MACHINE OPERATOR HELPER EXAM: DX CHEST AP OR PA AND LATERAL 2 VIEWS Procedure Note Marcos Crisostomo M.D. - 01/04/2025 EXAM: DX CHEST AP OR PA AND LATERAL 2 VIEWS IMPRESSION: No change since 12/21/2024. Stable interstitial fibrotic changes inpredominantly in the mid and lower lungs. Small lung volumes. Pacemaker.Calcified aorta. Degenerative changes of the spine. Chest otherwisenegative. Authorizing ProviderResult TypeResult StatusReid Yoseph JAIN DIAGNOSTIC IMAGING PROCEDURESFinal Result documented in this encounter Visit Diagnoses Diagnosis Lung Interstitial Disease (HCC) documented in this encounter Care Teams Team MemberRelationshipSpecialtyStart DateEnd Date Elsewhere, Pcp PCP - GeneralInternal Psoeccss51/8/25documented as of this encounter
--- OUTSIDE RECORDS SUMMARY | 2025-01-07 08:00 | XMS_ITS | Encounter Summary ---
Author Organization [facility] Address [address] [place] [phone] Care Team Providers Care Web Programmer Name Role Phone Elsewhere, Pcp Primary Care Provider Unavailabl e Reason for Visit * Outpatient (Routine) - ClosedSpecialtyDiagnoses / ProceduresReferred By ContactReferred To ContactCardiovascular Diseases / Cardiovascular Disease Diagnoses Lung Interstitial Disease (HCC) Blanco Spivey M.D. 200 [place] [address] Phone: tel: fax: [facility] Referral IDStatusReasonStart DateExpiration DateVisits RequestedVisits [id number]/21/20255/ Encounter Details DateTypeDepartmentCare Team (Latest Contact Info)Ssoeoyydyyg62/24/2025 8:00 AM CSTComprehensive Visit Department of Cardiovascular Medicine in [place], [place] [address] [place] [phone] Rod Solorio M.D. [address] [place] [phone] Lung Interstitial Disease (HCC) (Primary Dx); Dyspnea; Chronic Diastolic (Congestive) Heart Failure (HCC) Social History Tobacco UseTypesPacks/DayYears UsedDateSmoking Tobacco: YnhgpwPqhxwsiyci740 02/15/1956 - 02/14/1966Smokeless Tobacco: FormerChewQuit: 02/14/1966Alcohol Use [...] the highest degree you have received?GED or /05/2020Sex and Gender InformationValueDate RecordedSex Assigned at LwgpgUywq86/05/2018 9:08 AM CDT Legal XjcWfeh5203/18/2016 7:31 AM CSTGender HiejixcsMolg71/05/2018 9:08 AM CDT Sexual FvxqnqlyfptChvodiwt71/05/2018 9:08 AM CDTOccupationIndustryJob Start Date Job End DateRetiredNot on fileNot on fileNot on filedocumented as of this encounter Last Filed Vital Signs Vital SignReadingTime TakenCommentsBlood Zrmcxrju388/7001/07/2025 7:47 AM CSTavg of 7Szxne7670/24/2025 7:47 AM CSTavg of 3Temperature--Respiratory Rate--Oxygen Ksfsdiwggx52%01/07/2025 7:47 AM CSTInhaled Oxygen Concentration--Priwdo83.7 kg (195 lb 8.8 oz)01/07/2025 7:47 AM GVHKcnlfl475.4 cm (5' 6.3)01/07/2025 7:47 AM CSTBody Mass Index31.28103/09/2024 7:47 AM CSTdocumented in this encounter Consult Notes * Kayode Johnson M.D. - 01/07/2025 8:00 AM CST Images from the original note were not included. PULMONARY HYPERTENSION CONSULT HISTORY OF PRESENT ILLNESS 89M w/ pulmonary fibrosis, HFpEF, Eosinophilic asthma, Afib on Xarelto, DANAE on CPAP, CKD3, CHB s/p PPM, and chronic hypoxemic respiratory failure who presents for evaluation of pulmonary hypertension. Patient has had 4 hospitalizations since 10/2024 for dyspnea. He was treated with antibiotics for potential pneumonia and steroids for presumed ILD flare throughout this time. CTs during these admissions are notable for reticulations and traction bronchiectasis in the lower lobes in addition to upper lobe GGOs. TTE revealed an RVSP of 38mmHg. Autoimmune testing has been negative for KRIS, CCP, Sjogren Abs, OUTBOUND SALES SPECIALIST, Scl70 and ANCA. Telomere length is <10 percentile for age. His eosinophilic asthmahas been controlled on dupilumab and Pulmicort. Today, he had some dizziness when getting on the weight scale which he normally does not have. He states he can walk about 100ft before having to stop and catch his breath. He has been using 1LNC when walking. If he does not use oxygen, his saturations drop to around 88%. His breathing is improved since his hospitalizations. He does have swelling in his legs. He follows with his sleep medicine doctor yearly. Last sleep study in 2020 with AHI of 6.3. CURRENT MEDICATIONS Active Home Medications Medication Sig Taking acetaminophen (TylenoL) 500 mg tablet Take 1,000 mg by mouth 2 (two) times a day as needed for pain. benzonatate (Tessalon) 200 mg capsule Take 200 mg by mouth 3 (three) times a day as needed. bisacodyL (Dulcolax) 5 mg EC tablet Take 2 tablets (10 mg total) by mouth daily. budesonide (PULMICORT) 0.25 mg/2 mL nebulizer solution Inhale 0.25 mg 2 (two) times a day. cholecalciferol, vitamin D3, 25 mcg (1,000 Unit) tablet Take 1 tablet (25 mcg total) by mouth daily. DME Oxygen DME Order - for details see Order Report DME Oxygen DME Order - for details [...] of iron total) by mouth every otherday. finasteride (PROSCAR) 5 mg tablet Take 5 mg by mouth daily. fluticasone furoate-vilanteroL (Breo Ellipta) 100-25 mcg/actuation inhaler Inhale 1 puff once daily. ipratropium-albuteroL (DuoNeb) 0.5-2.5 mg/3 mL nebulizer solution Inhale 3 mL by nebulization 4 (four) times a day. montelukast (SINGULAIR) 10 mg tablet Take 10 mg by mouth at bedtime. kutbijieprmp-dvcr-MH-Ca-minerals 400 mcg (folic acid) tablet Take 1 tablet by mouth daily. nitroglycerin (Nitrostat) 0.[address] 0.4 mg under the tongue every 5 (five) minutes as needed. nystatin (Mycostatin) 100,000 unit/mL suspension Take 100,000 Units by mouth 3 (three) times a day.For 10 days omeprazole (PriLOSEC) [address] capsule Take 20 mg by mouth every morning before breakfast. potassium chloride (K-Tab) 20 mEq ER tablet Take 1 tablet (20 mEq total) by mouth daily with morning meal. predniSONE (Deltasone) 20 mg tablet Take 1.5 tablets (30 mg total) by mouth daily for 2 days, THEN 1 tablet (20 mg total) daily for 21 days. predniSONE (Deltasone) 5 mg tablet Take 3 tablets for 14 days, then take 2 tablets for 14 days, then take 1 tablet for 14 days then stop. rivaroxaban (Xarelto) 15 mg tablet Take 1 tablet (15 mg total) by mouth daily with evening meal. sennosides (senna) 8.6 mg tablet Take 8.6 mg by mouth at bedtime as needed for constipation. sertraline (ZOLOFT) 50 mg tablet Take 50 mg by mouth daily. sulfamethoxazole-trimethoprim (Bactrim) 400-80 mg per tablet Take 1 tablet by mouth daily Indications: Prophylaxis, medical. torsemide 60 mg tablet Take 60 mg by mouth daily. ALLERGIES/ADVERSE REACTIONS Allergies as of 01/07/2025 - Reviewed 12/22/2024 Allergen Reaction Noted Hydrocodone-acetaminophen Anxiety 12/08/2009 Levetiracetam Other (see comments) 08/01/2012 Oxycodone Anxiety 12/08/2009 Rosuvastatin Myalgia 04/24/2020 Simvastatin Myalgia 11/08/2014 Bupivacaine Other (see comments) 07/28/2021 PAST MEDICAL/SURGICAL HISTORY Medical History[1] Surgical History[2] SOCIAL HISTORY Social History[3] FAMILY HISTORY Family History[4] SYSTEMS REVIEW General: No fatigue. No malaise. HENT: No sore throat. No oral lesions. Cardiac: No chest pain. No palpitations. LE swelling bilaterally (worse on the right) Respiratory: No cough. Dyspnea on exertion. No wheezing MSK: No joint pain. No stiffness. No joint swelling Neurological: No difficulty with vision. No difficulty with moving extremities VITAL SIGNS There were no vitals filed for this visit. PHYSICAL EXAMINATION General: Alert, well-nourished, well-groomed HENT: No eye discharge or erythema. Heart: Normal rate and rhythm. No murmurs noted. Perfusing well. 1+ LE swelling bilaterally (worse on R) Lung: Normal work of breathing. Breath sounds bilaterally. No rales, stridor. Skin: No rashes, nodules, or lesions. MSK: Grossly normal joint mobility. No joint swelling or pain Neuro: EOMI intact. No gross visual abnormalities. LABS No results for input(s): NA, K, CL, BICARB, MG, CALCIUM, BUN, CREATININE, GLUCOSE, LABGLUC, ALBUMIN, PREALBUMIN, HGB, HCT, WBC, PLT, INR, PT, APTT, KNY1XQQ, PHART, PO2ART in the last 24 hours. No lab exists for component: [id number] Narrative EXAM: CT CHEST WITHOUT IV CONTRAST COMPARISON: [...] Otherwise the visualized upper abdomen appears negative. Impression 1. Slight decrease in some of the groundglass opacities since 12/22/2024, but most of the findings compatible with fibrotic interstitial lung disease are unchanged since that exam and progressed fromearlier studies. 2. Sequelae of previous granulomatous infection. Study Date 12/21/24 CT Chest Angiogram and Pulmonary Arteries with IV Contrast Narrative EXAM: CT CHEST ANGIOGRAM AND PULMONARY ARTERIES [...] anterior bridging osteophyte formation, compatible with DISH. Impression 1. Negative for acute pulmonary embolism. 2. Similar findings of fibrotic interstitial lung disease in both lung bases Study Date 12/06/24 CT Chest without IV Contrast Narrative EXAM: CT CHEST WITHOUT IV CONTRAST COMPARISON: [...] blood pool, likely due to patient's anemia. Impression 1. Decreased patchy groundglass opacities in the upper lobes with persistent micronodularity and groundglass opacities in the lung bases. Findings are suggestive of improving infectious/inflammatory process, though waxing/waning of patient's interstitial lung disease is also a consideration. 2. 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 01/04/2025 6MWT: 259m 09/11/2024 TTE: 1. Normal left ventricular chamber size, regional wall motion abnormalities were present (see wall motion graphics). 2. Calculated 2-D biplane volumetric left ventricular ejection fraction of 53% with the use of ultrasound enhancing agent. 3. Abnormal ventricular septal motion due to pacing. 4. Moderately calcified mitral annulus. 5. Mitral valve diastolic mean Doppler gradient 4 mmHg (heart rate 71 BPM). 6. Trivial mitral valve regurgitation. 7. Mildly enlarged right ventricular chamber size, normal systolic function, estimated right ventricular systolic pressure 40 mmHg (right atrial pressure of 5 mmHg). 8. Normal inferior vena cava size with normal inspiratory collapse (>50%). 9. Device lead (s) identified in right atrium and right ventricle. 10. No pericardial effusion. 11. Compared to the report of 01/28/2023 the following changes have occurred: the mitral diastolic gradient has slightly decreased at a slower heart rate. Otherwise no changes, despite differences incoding of regional wall motion. Side by side comparison of images performed. 12/22/2024 TTE: 1. Normal left ventricular chamber size, calculated 2-D linear ejection fraction 65%. 2. Mildly enlarged right ventricular chamber size, normal systolic function, right ventricular systolic pressure 38 mmHg (right atrial pressure of 5 mmHg). 3. Moderately calcified mitral annulus. Mean diastolic gradient 7 mmHg (heart rate 80 bpm). Trivialmitral valve regurgitation. 4. No pericardial effusion. 5. Compared to the report of 09/12/2023 the following changes have occurred: the mean diastolic gradient through the mitral valve has increased (but at a higher heart rate), the regional wall motion abnormalities are not as pronounce on today's study, and left ventricular ejection fraction has improved. Overnight Oximetry 08/2023 IMPRESSION: Overnight oximetry was performed on CPAP. Baseline saturation was decreased, averaging 91%. The oxyhemoglobin desaturation index was within normal limits at 2.7 per hour. Impression: Borderline overnight oximetry. Mild baseline desaturations suggests gas exchange abnormality or hypoventilation. Sleep-disordered breathing appears to be controlled on current CPAP settings. Latest Reference Range & Units 12/08/24 01:34 Antinuclear Ab, S <=1.0 (Negative) U 0.3 Cyclic Citrullinated Peptide Ab, S <20.0 (Negative) U <15.6 SS-A/Ro Ab, IgG, S <1.0 (Negative) U <0.2 SS-B/La Ab, IgG, S <1.0 (Negative) U <0.2 Sm Ab, IgG, S <1.0 (Negative) U <0.2 OUTBOUND SALES SPECIALIST Ab, IgG, S <1.0 (Negative) U <0.2 Scl 70 Ab, IgG, S <1.0 (Negative) U <0.2 Myeloperoxidase Ab, S <0.4 (Negative) U <0.2 Proteinase 3 Ab (PR3), S <0.4 (Negative) U <0.2 IMPRESSION/REPORT/PLAN # Pulmonary fibrosis # Pulmonary Hypertension # Eosinophilic Asthma # Heart failure with preserved ejection fraction # Atrial fibrillation # Obstructive sleep apnea # Complete heart block s/p pacemaker # Chronic Hypoxemic respiratory failure 89M w/ pulmonary fibrosis, HFpEF, Eosinophilic asthma, Afib on Xarelto, DANAE on CPAP, CKD3, CHB s/p PPM, and chronic hypoxemic respiratory failure who presents for evaluation of pulmonary hypertension. Ongoing symptoms of dyspnea worse with exertion. RVSP most recently found to be 37mmHg on 12/22/2024 TTE. Patient has evidence of ILD on CT. Likely type 3 pulmonary hypertension secondary to this. Also possible contribution of HFpEF and DANAE to elevated right-sided pressures. Autoimmune testing is negative. We discussed next steps moving forward. First option is to do a transthoracic echo in 6-12 months to evaluate right-sided pressures. The other option was to do a right heart catheterization straight away. Patient elected to do the more conservative approach of doing a TTE in 6-12 months. At that time if there is increased pressures we may elect to do a right heart catheterization and consider inhaled treprostinil depending on those results. In the meantime, it is recommended that he continue diuresis as prescribed to improve pulmonary congestion. Discussed with Dr. 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 05/11/2023 Atrial [...] Angiography; Surgeon: Estrada Christian M.D., Ph.D.; Location: [facility] CATH ANGIOGRAM N/A 05/13/2023 Procedure: Coronary Angiography; Surgeon: Bari Johnson M.D.; Location: [facility] CATH ANGIOGRAM N/A 05/13/2023 Procedure: Left Heart Catheterization; Surgeon: Bari Johnson M.D.; Location: [facility] CATH PACEMAKER Left 05/30/2023 Procedure: PPM Generator Change - Dual Chamber; Surgeon: Sidney Bartlett M.D.; Location: [facility] EYE SURGERY bilateral cateract surgery HERNIA REPAIR JOINT REPLACEMENT PACEMAKER OPERATIVE PROSTATE SURGERY TURP TONSILLECTOMY VASECTOMY [3] Social History Socioeconomic History Marital status: Spouse name: Tiffani Number of children: 3 Highest education level: GED or equivalent Occupational History Occupation: Retired Tobacco Use Smoking status: Former Current packs/day: 0.00 Average packs/day: 2.0 packs/day for 10.0 years (20.0 ttl pk-yrs) Types: Cigarettes Start date: 02/15/1956 Quit date: 02/14/1966 Years since quittin.9 Smokeless tobacco: Former Types: Chew Quit date: 02/14/1966 Vaping Use Vaping status: never used Substance and Sexual Activity Alcohol use: No Drug use: No Sexual activity: Defer Social Drivers of Health Food Insecurity: No Food Insecurity (12/22/2024) Hunger Vital Sign Worried About Running Out of Food in the Last Year: Never true Ran Out of Food in the Last Year: Never true Transportation Needs: No Transportation Needs (12/22/2024) PRAPARE - Transportation Lack of Transportation (Medical): No Lack of Transportation (Non-Medical): No Intimate Partner Violence: Not At Risk (12/22/2024) Humiliation, Afraid, Rape, and Kick questionnaire Fear of Current or Ex-Partner: No Emotionally Abused: No Physically Abused: No Sexually Abused: No Housing Stability: Low Risk (12/22/2024) Housing Stability Housing: Living Situation: I have a steady place to live [4] Family History Problem Relation Name Age of Onset Heart attack Mother Kimmy Heart failure Mother Kimmy Cancer Mother Kimmy Hypertension Mother Kimmy Coronary artery disease Mother Kimmy Hyperlipidemia (high cholesterol) Mother Kimmy Heart attack Father Ruperto Heart failure Father Ruperto Clotting/ bleeding disorder Father Ruperto Hypertension Father Ruperto Stroke Father Ruperto Coronary artery disease Father Ruperto Hyperlipidemia (high cholesterol) Father Ruperto Cosigned by Rod Solorio M.D. at 01/07/2025 9:57 AM CASEWORKER INTAKE WORKER INTAKE WORKER INTAKE Associated attestation - Rod Solorio M.D. - 01/07/2025 9:57 AM CASEWORKER INTAKE I agree with the history and findings as documented by Dr. Johnson. Mr. Perez is an 89-year-old gentleman from [place], [place] with a number of establish medical problems including lung fibrosis in the setting of eosinophilic asthma, AFib, DANAE, and HFpEF. He has been hospitalized for dyspnea. Recent echocardiogram suggested an RVSP of 38 mm Hg and evidence of ILD on CT scan. Physical examination is as noted. It is likely that his pulmonary hypertension is multifactorial in etiology including a component ofgroup 3 in the setting of ILD which may be helped by inhaled treprostinil. In addition there is OSAand HFpEF. We discussed next steps moving forward including the possibility of doing right heart catheterization to document the pressures. For now, he would like to wait on invasive investigations. We will therefore suggest a follow up visit in [facility] in 6-8 months with a repeat echocardiogram with a plan to consider right heart catheterization depending on findings and how he is doing. Remainder is as noted and discussed. documented in this encounter Plan of Treatment DateTypeDepartmentCare Team (Latest Contact Info)Fhyvjzauvut40/29/2025 10:15 AM CSTClinical Communication Virtual Review in [address] [phone] 02/12/2025 11:15 AM CSTAppointment Department of Radiology, [facility] in [address] [phone] Lilli Moore M.D. [address] [place] [phone] 02/12/2025 11:50 AM CSTAppointment Department of Laboratory Medicine and Pathology, [facility] in [address] [phone] Lilli Moore M.D. [address] [place] [phone] 02/12/2025 1:30 PM CSTOffice Visit Division of Pulmonary Medicine in [address] [phone] Lilli Moore M.D. [address] [place] [phone] documented as of this encounter Visit Diagnoses Diagnosis Lung Interstitial Disease (HCC)- Primary Dyspnea Chronic Diastolic (Congestive) Heart Failure (HCC) documented in this encounter Care Teams Team MemberRelationshipSpecialtyStart DateEnd Date Elsewhere, Pcp PCP - GeneralInternal Nsfsxqxn13/8/25documented as of this encounter
--- OUTSIDE RECORDS SUMMARY | 2025-01-07 09:30 | XMS_ITS | Encounter Summary ---
Author Organization [facility] Address [address] [place] [address] Care Team Providers Care Transportation Design Engineer Name Role Phone Elsewhere, Pcp Primary Care Provider Unavailabl e Encounter Details DateTypeDepartmentCare Team (Latest Contact Info)Vxwtakabtzf58/24/2025 9:30 AM CSTDiagnostic Division of Pulmonary Medicine in [place], [place] [address] [place] [address] Blanco Spivey M.D. [address] [place] [address] Lung Interstitial Disease (HCC) Social History Tobacco UseTypesPacks/DayYears UsedDateSmoking Tobacco: JsandvUwmijkcdhr000 02/15/1956 - 02/14/1966Smokeless Tobacco: FormerChewQuit: 02/14/1966Alcohol Use [...] RecordedIn the past 12 months has the [employer], gas, oil, or water [employer] threatened to shut off services in your home?No12/22/2024Housing StabilityAnswerDate RecordedWhat is your living situation today?I have a steady place to live12/22/2024Education AnswerDate RecordedWhat is the highest level of school you have completed or the highest degree you have received?GED or fnhhxydtwp18/05/2020Sex and Gender InformationValueDate RecordedSex Assigned at RqjiiWelp54/05/2018 9:08 AM CDT Legal LnwUkka8403/18/2016 7:31 AM CSTGender GhdsnzxvQjay81/05/2018 9:08 AM CDT Sexual PagorrlmzsvMpwhltgc07/05/2018 9:08 AM CDTOccupationIndustryJob Start Date Job End DateRetiredNot on fileNot on fileNot on filedocumented as of this encounter Plan of Treatment DateTypeDepartmentCare Team (Latest Contact Info)Oeahtvpothc41/29/2025 10:15 AM CSTClinical Communication Virtual Review in [address] [phone] 02/12/2025 11:15 AM CSTAppointment Department of Radiology, [facility], in [place], [place] [address] [place] [address] Lilli Moroe M.D. [address] [place] [address] 02/12/2025 11:50 AM CSTAppointment Department of Laboratory Medicine and Pathology, [facility] in [place], [place] [address] [place] [address] Lilli Moore M.D. [address] [place] [phone] 02/12/2025 1:30 PM CSTOffice Visit Division of Pulmonary Medicine in [place], [place] [address] [place] [address] Lilli Moore M.D. [address] [place] [phone] documented as of this encounter Procedures Procedure NamePriorityDate/TimeAssociated DiagnosisCommentsOXYGEN TITRATION Hfbecrs4001/07/2025 9:49 AM MUD ANALYSIS WELL LOGGING CAPTAIN Lung Interstitial Disease (HCC) documented in this encounter Results * Oxygen Titration (01/07/2025 9:49 AM MUD ANALYSIS WELL LOGGING CAPTAIN)ComponentValueRef RangeTest Method Analysis TimePerformed AtPathologist Signature[1] Inspired Gas (L/min)Room air MMODAL[1] InterfaceN/AMMODAL[1] Speed (mph)RestMMODAL[1] Grade (%)0.0MMODAL[1] Time (min)10MMODAL[1] SpO2 (%)98MMODAL[1] Heart Aset65AFIIAE[1] Ratings of Perceived Exertion (6-20)6MMODAL[2] Inspired Gas (L/min)Room airMMODAL[2] InterfaceN/AMMODAL[2] Speed (mph)1.2MMODAL[2] Grade (%)0.0MMODAL[2] Time (min) 3MMODAL[2] SpO2 (%)96MMODAL[2] Heart Jmqv878AEINYS[2] Ratings of Perceived Exertion (6-20)12MMODAL[3] Inspired Gas (L/min)Room airMMODAL[3] InterfaceN/A MMODAL[3] Speed (mph)1.2MMODAL[3] Grade (%)1.0MMODAL[3] Time (min)1.5MMODAL[3] SpO2 (%)95MMODAL[3] Heart Tvsl454PMXODO[3] Ratings of Perceived Exertion (6-20)14MMODALCommentTotal exercise time: 4.5 minutesMMODALSpecimen (Source) Anatomical Location / LateralityCollection Method / VolumeCollection Time Received Time Narrative Authorizing ProviderResult TypeResult StatusReid Yoseph Spivey M.D.PFT ORDERABLES Final ResultPerforming OrganizationAddressCity/State/ZIP CodePhone Number MMODAL NA documented in this encounter Visit Diagnoses Diagnosis Lung Interstitial Disease (HCC) documented in this encounter Care Teams Team MemberRelationshipSpecialtyStart DateEnd Date Elsewhere, Pcp PCP - GeneralInternal Rfsoakqf60/8/25documented as of this encounter
--- OUTSIDE RECORDS SUMMARY | 2025-01-07 10:30 | XMS_ITS | Encounter Summary ---
Author Organization [facility] Address [address] [place] [address] Care Team Providers Care Pediatric Assistant Name Role Phone Elsewhere, Pcp Primary Care Provider Unavailabl e Encounter Details DateTypeDepartmentCare Team (Latest Contact Info)Xnwlglfwoqw12/24/2025 10:30 AM CSTDiagnostic Division of Pulmonary Medicine in [place], [place] [address] [place] [address] Blanco Spivey M.D. [address] [place] [address] Lung Interstitial Disease (HCC) Social History Tobacco UseTypesPacks/DayYears UsedDateSmoking Tobacco: EqaanmWneqqgwbzt096 02/15/1956 - 02/14/1966Smokeless Tobacco: FormerChewQuit: 02/14/1966Alcohol Use [...] RecordedIn the past 12 months has the [employer], gas, oil, or water [employer] threatened to shut off services in your home?No12/22/2024Housing StabilityAnswerDate RecordedWhat is your living situation today?I have a steady place to live12/22/2024Education AnswerDate RecordedWhat is the highest level of school you have completed or the highest degree you have received?GED or dydueukdyy34/05/2020Sex and Gender InformationValueDate RecordedSex Assigned at GctueJpjk00/05/2018 9:08 AM CDT Legal HgzHozw9603/18/2016 7:31 AM CSTGender ElcdofguUyic92/05/2018 9:08 AM CDT Sexual YkcfgtpycmaLxdopemu13/05/2018 9:08 AM CDTOccupationIndustryJob Start Date Job End DateRetiredNot on fileNot on fileNot on filedocumented as of this encounter Plan of Treatment DateTypeDepartmentCare Team (Latest Contact Info)Tkvvzdexebr11/29/2025 10:15 AM CSTClinical Communication Virtual Review in [address] [phone] 02/12/2025 11:15 AM CSTAppointment Department of Radiology, [facility], in [place], [place] [address] [place] [address] Lilli Moore M.D. [address] [place] [address] 02/12/2025 11:50 AM CSTAppointment Department of Laboratory Medicine and Pathology, [facility] in [place], [place] [address] [place] [address] Lilli Moore M.D. [address] [place] [phone] 02/12/2025 1:30 PM CSTOffice Visit Division of Pulmonary Medicine in [place], [place] [address] [place] [address] Lilli Moore M.D. [address] [place] [phone] documented as of this encounter Procedures Procedure NamePriorityDate/TimeAssociated DiagnosisCommentsPUL HOME OVERNIGHT YTZUXJNLQzeumfh79/24/2025 Lung Interstitial Disease (HCC) documented in this encounter Results * Home Overnight Oximetry (01/07/2025)Specimen (Source)Anatomical Location / LateralityCollection Method / VolumeCollection TimeReceived Time01/07/2025 Narrative [facility] - 01/09/2025 8:06 AM TWX OPERATOR Procedure: Overnight oximetry was performed on room air and CPAP 15. The patient stated they did not consume alcohol and did not take sedative medication on the night of the study, and stated quality of sleep was the same as usual. [place] Sleepiness Scale was 9. The time spent <89% was 1.3 minutes, with a 4% desaturation index of 1.5. Impression: There appears to be adequate support on current CPAP settings. ??Please note the persistence of heart rate variability and tachycardia during sleep. Authorizing ProviderResult TypeResult StatusRejaylyn Spivey M.D.PFT ORDERABLES Final ResultPerforming OrganizationAddressCity/State/ZIP CodePhone Number [facility] documented in this encounter Visit Diagnoses Diagnosis Lung Interstitial Disease (HCC) documented in this encounter Care Teams Team MemberRelationshipSpecialtyStart DateEnd Date Elsewhere, Pcp PCP - GeneralInternal Wacrwoyt38/8/25documented as of this encounter
--- OUTSIDE RECORDS SUMMARY | 2025-01-08 13:00 | XMS_ITS | Encounter Summary ---
Author Organization [facility] Address [address] [place] [address] Care Team Providers Care Fire Engine Pump Operator Name Role Phone Elsewhere, Pcp Primary Care Provider Unavailabl e Reason for Visit * ReasonCommentsPatient Education Encounter Details DateTypeDepartmentCare Team (Latest Contact Info)Wegmtcmwpfc96/25/2025 1:00 PM CSTVirtual Visit Division of Pulmonary Medicine in [place], [place] [address] [place] [address] Jacky Javed M.D. [address] [place] [address] Alexus Carpenter, R.R.T., L.R.T. Lung Interstitial Disease (HCC) [J84.9] (Primary Dx) Social History Tobacco UseTypesPacks/DayYears UsedDateSmoking Tobacco: UsacmtVdtehndpht864 02/15/1956 - 02/14/1966Smokeless Tobacco: FormerChewQuit: 02/14/1966Alcohol Use [...] the highest degree you have received?GED or whbmifxjhc45/05/2020Sex and Gender InformationValueDate RecordedSex Assigned at MqysgWips42/05/2018 9:08 AM CDT Legal QibBzee6203/18/2016 7:31 AM CSTGender PzigsvxxZaue80/05/2018 9:08 AM CDT Sexual YrdauugnipvNdnjjnvq18/05/2018 9:08 AM CDTOccupationIndustryJob Start Date Job End DateRetiredNot on fileNot on fileNot on filedocumented as of this encounter Progress Notes * Alexus Carpenter, RAnaR.T., Oc. - 01/08/2025 1:00 PM CST Consult conducted via real-time audio/video technology by Alexus Carpenter R.R.T., Mari in [facility] to the patient in [facility]. I spoke with Cecil via telephone about pulmonary rehabprograms including program options and expected program outcomes. Cecil [facility] so is familiar with what is offered and is interested in attending again. A referral order has been placed and contact information was given for [facility] in [place]. All questions were answered at this time. OR MECHANICAL ENGINEER documented in this encounter Plan of Treatment DateTypeDepartmentCare Team (Latest Contact Info)Qeqngepkxlq84/29/2025 10:15 AM CSTClinical Communication Virtual Review in [address] [address] 02/12/2025 11:15 AM CSTAppointment Department of Radiology, [facility] in [place], [place] [address] [place] [phone] Lilli Moore M.D. [address] [place] [phone] 02/12/2025 11:50 AM CSTAppointment Department of Laboratory Medicine and Pathology, [facility] in [address] [address] Lilli Moore M.D. [address] [place] [phone] 02/12/2025 1:30 PM CSTOffice Visit Division of Pulmonary Medicine in [address] [address] Lilli Moore M.D. [address] [place] [phone] documented as of this encounter Visit Diagnoses Diagnosis Lung Interstitial Disease (HCC) [J84.9]- Primary documented in this encounter Care Teams Team MemberRelationshipSpecialtyStart DateEnd Date Elsewhere, Pcp PCP - GeneralInternal Nbruqcob51/8/25documented as of this encounter
[2025-01-22 15:40] LABS: Appearance Urine Slightly Cloudy (Clear)
--- OUTSIDE RECORDS SUMMARY | 2025-01-23 00:44 | XMS_ITS | Encounter Summary ---
Author Organization [facility] Address [address] [place] [address] Care Team Providers Care Dual Hose Cementer Name Role Phone Elsewhere, Pcp Primary Care Provider Unavailabl e Encounter Details DateTypeDepartmentCare Team (Latest Contact Info)Saybxvbnrmz40/06/2025Clinical Communication Department of Cardiovascular Medicine in [place], [place] [address] [place] [address] Firing Pin GaugerDerik M.D. Social History Tobacco UseTypesPacks/DayYears UsedDateSmoking Tobacco: EfojxyEgogujwnkf574 02/15/1956 - 02/14/1966Smokeless Tobacco: FormerChewQuit: 02/14/1966Alcohol Use [...] RecordedIn the past 12 months has the [employer], gas, oil, or water [employer] threatened to shut off services in your home?No12/22/2024Housing StabilityAnswerDate RecordedWhat is your living situation today?I have a steady place to live12/22/2024Education AnswerDate RecordedWhat is the highest level of school you have completed or the highest degree you have received?GED or xmebnbrejb48/05/2020Sex and Gender InformationValueDate RecordedSex Assigned at UqhwyYged90/05/2018 9:08 AM CDT Legal PiwDerb2403/18/2016 7:31 AM CSTGender TfmpowndSkuo27/05/2018 9:08 AM CDT Sexual HhbmsitmfksYpeahizy28/05/2018 9:08 AM CDTOccupationIndustryJob Start Date Job End DateRetiredNot on fileNot on fileNot on filedocumented as of this encounter Miscellaneous Notes * Telephone Encounter - Raul Catalan R.N. - 12/21/2024 3:13 PM CST INFORMATION DISCUSSED Contacted Mr. Perez to discuss his symptoms. Spoke to Naa (consent on file). Naa sharedthat yesterday his HR was in the 50s. Today it is 94-104 and has been elevated all day. This is day6 or 7 of the pt feeling unwell. He is reporting labored breathing and fatigue. Naa shared that he is unable to walk without stopping, which is very abnormal for him. Advised Naa to bring Mr. Perez to the local ER. For which she agreed that he needed ER care but is going to be bringing him to [facility]. Provided Naa the device clinic phone number for future use on help with device related concerns. PLAN Disposition/Recommendation: recommended to report to the nearest emergency department Education: patient/caller able to teach back Caller agreeable to plan of care: yes The following references were used: nursing clinical judgement TROLYSIS ENGINEER documented in this encounter Plan of Treatment DateTypeDepartmentCare Team (Latest Contact Info)Kmpzsajpmxt91/29/2025 10:15 AM CSTClinical Communication Virtual Review in [address] [phone] 02/12/2025 11:15 AM CSTAppointment Department of Radiology, [facility] in [address] [phone] Lilli Moore M.D. [address] [place] [phone] 02/12/2025 11:50 AM CSTAppointment Department of Laboratory Medicine and Pathology, [facility] in [address] [address] Lilli Moore M.D. [address] [place] [phone] 02/12/2025 1:30 PM CSTOffice Visit Division of Pulmonary Medicine in [address] [address] Lilli Moore M.D. [address] [place] [phone] documented as of this encounter Visit Diagnoses Not on filedocumented in this encounter Additional Health Concerns InfectionOnset DateLast IndicatedResolved GnzqXPOWF80 Jnjdydy7912/22/2024 1:10 AM DINOSNLX22 Fexlgkv24 4:16 AM CSTdocumented as of this encounter Care Teams Team MemberRelationshipSpecialtyStart DateEnd Date Elsewhere, Pcp PCP - GeneralInternal Gftxxbnc20/8/25documented as of this encounter
--- OUTSIDE RECORDS SUMMARY | 2025-01-23 00:45 | XMS_ITS | Clinical Summary ---
Author Organization [facility] Address [address] [place] [address] Care Team Providers Care Lan Engineer Name Role Phone Unavailable Primary Care Provider Unavailabl e Allergies Active AllergyReactionsCriticalityNoted DateCommentsRosuvastatinMyalgia 04/24/2020Hydrocodone-FakscjfdediiyYiwllwvYvo56/25/2010LevetiracetamConfusion 08/01/2012 confusion BupivacaineExtrapyramidal Side Fzzfoh2707/28/2021 hiccups NytkdmcqeTmphlfsOnh37/25/1062ZplfctdsefrEczzvhj57/25/2015 Other reaction(s): Muscle Pain (Myalgia) Medications MedicationSigDispense QuantityRefillsLast FilledStart DateEnd DateStatus VITAMIN D 2,000 UNIT CAP take one cap qdyub137ctive VITAMINS A,C,Y-NZGX-NMPXEA (OCUVITE PRESERVISION) 7,160-113-100 dzia-jy-hkrm tablet Take 1 tablet by mouth once daily.Active benzonatate (TESSALON) 200 mg capsule Indications:Acute coughTake 1 Capsule (200 mg) by mouth 3 times daily if needed for Cough. 30 Capsule 4Active albuterol HFA (PRO-AIR; VENTOLIN; PROVENTIL) 90 mcg/actuation inhaler Indications:Eosinophilic asthma (HC)Inhale 1-2 Puffs by mouth every 4 hours if needed for Shortness Of Breath or Wheezing. 18 g 5Active budesonide (PULMICORT RESPULES) 0.25 mg/2 mL neb suspension Indications:Chronic bronchitis, unspecified chronic bronchitis type (HC)Inhale 2 mL (0.25 mg) via a nebulizer two times daily. 240 mL 5Active dilTIAZem CD (CARDIZEM CD) 120 mg extended release 24 hr capsule Indications:Paroxysmal atrial fibrillation (HC)Take 1 Capsule (120 mg) by mouth once daily. 90 Capsule 5Active finasteride (PROSCAR) 5 mg tablet Indications:Benign prostatic hyperplasia with weak urinary streamTake 1 Tablet (5 mg) by mouth once daily in the morning. 90 Tablet 5Active montelukast (SINGULAIR) 10 mg tablet Indications:Eosinophilic asthma (HC)Take 1 Tablet (10 mg) by mouth at bedtime. 30 Tablet 5Active nitroglycerin (Nitrostat) 0.4 mg sublingual tablet Indications:Stable anginaPlace 1 Tablet (0.4 mg) under the tongue every 5 minutes if needed for Chest Pain. 25 Tablet 5Active omeprazole (PRILOSEC) 20 mg Delayed-Release capsule Indications:Chronic GERDTake 1 Capsule (20 mg) by mouth once daily before a meal. 30 Capsule 5Active potassium chloride (KLOR-CON M10) 10 mEq extended-release tablet (part/cryst) Indications:HypokalemiaTake 2 Tablets (20 mEq) by mouth two times daily with meals. 120 Tablet 5Active rivaroxaban (Xarelto) 20 mg tablet Indications:Paroxysmal atrial fibrillation (HC)Take 1 Tablet (20 mg) by mouth once daily with evening meal. 90 Tablet 5Active sertraline (ZOLOFT) 50 mg tablet Indications:AnxietyTake 1 Tablet (50 mg) by mouth once daily in the morning. 90 Tablet 5Active Breo Ellipta 100-25 mcg/dose inhalation powder Indications:Chronic bronchitis, unspecified chronic bronchitis type (HC)Inhale 1 Puff by mouth once daily. 60 Each 5Active albuterol-ipratropium (DUONEB) (2.5-0.5 mg) in 3 mL NEBULIZATION solution Indications:Chronic bronchitis, unspecified chronic bronchitis type (HC)Inhale 3 mL via a nebulizer every 6 hours if needed for Shortness Of Breath. 180 mL 5Active torsemide (DEMADEX) 20 mg tablet Indications:Bilateral lower extremity edemaTAKE 2 TABLETS BY MOUTH DAILY. MAY TAKE 3RD TABLET IF WEIGHT > 3 LBS/DAY >5 LBS OR SWELLING/LEGS 180 Tablet 5Active ferrous sulfate 325 mg delayed release tablet Indications:Other iron deficiency anemiaTake 1 Tablet (325 mg) by mouth once every other day. 45 Tablet 5Active Dupixent Syringe 300 mg/2 mL subcutaneous syringe 5Active CPAP Indications:DANAE (obstructive sleep apnea)RESMED CPAP (E0601) machine for home use at pressure: 15 cm/H2O , Choice of mask (A7030 or A7034) w/full face cushion (A7031) x1-2/mo, nasal cushion (A7032) x2/mo, or nasal pillows (A7033) x 2/mo; Length of Need: 99 months; Frequency of use: Daily 1 Each 5Active Active Problems ProblemNoted DateDiagnosed DateChronic bronchitis, unspecified chronic bronchitis type06/11/2022Stable iwruxu5606/11/2022Eosinophilic agrfyw7008/11/2018 Elevated PSA10/06/20165691Edgagwrml11/06/2016Pulmonary muagocpu29/23/2015Obesity (BMI 30.0-34.9)08/06/2014OSA 11/20/2012 AHI- 8, xqhzdnkemq30/14/2013Dysphonia 08/01/20120581Vjgziymqbytevm47/30/2012CP (advance care planning)02/22/2011 Overview (02/22/2011): Patient has identified Health Care Agent(s): Yes- Pt verbally stated his preferences for spokespersons. Add Health Care Agents: Yes Health Care Agent(s): Primary Health Care Agent: Marie Perez Relationship:Spouse Phone: h)[phone] w)[phone] Secondary Health Care Agent: oZraida Ling Relationship: Daughter Phone: h)[phone] c)[phone] Conservator: Jose Perez Relationship: Son Phone: c)[phone] Guardian: Relationship: Phone: Patient has Advance Care Plan Documents (Health Care Directive, POLST): No, Health Care Packet given to patient, family and declined. Patient has identified Specific Treatment Preferences: Yes Specific Treatment Preferences: a.) Code Status: CPR/Attempt Resuscitation Paroxysmal atrial prsukasorqdb46/09/2012GERD (gastroesophageal reflux disease) 04/17/2010nxiety state, abqrjpypein74/13/2011Pulmonary uzvwxdusqu30/03/2010PPV (benign paroxysmal positional vertigo)10/17/2009Diastasis recti10/17/2009Cardiac pacemaker in situ07/05/2007Diaphragmatic hernia without mention of obstruction or ybqbgjaa68/04/2006Hypertrophy of prostate without urinary obstruction and other lower urinary tract symptoms (LUTS)11/17/2005Other specified forms of hearing loss11/17/2005 Overview (11/17/2005): using bilateral hearing aids Resolved Problems ProblemNoted DateDiagnosed DateResolved DateSecondary lhicsinacyzdlup21/28/2023 4Anticoagulation monitoring, DOAC/06/2022 Overview (07/16/2021): Starting Xarelto 07/24/21 Physical htxxfpxtcffepu14Anticoagulation goal of INR 2 to 3 S/P dual chamber permanent pacemaker generator change on /Postconcussive wplakaxd78Complex partial lhcoiwp05 Encounters DateTypeDepartmentCare QhspPlfiwmzvopa52/24/2025Orders Only [facility] Scanner 1 scan: (1-Ord) [facility], 5103/06/2024Orders Only [facility] Scanner 1 scan: (1-Ord) [place], INTERPRETATION SUMMARY, SIX MINUTE WALK, 01/04/2025 01/04/2025Orders Only [facility] Scanner 1 scan: (1-Ord) [facility], CHEST AP OR PA AND LATERAL 2 VIEWS, 01/04/2025 5Orders Only [facility] Scanner 1 scan: (1-Ord) [facility], BLOOD VENOUS, Orders Only [facility] Scanner 1 scan: (1-Ord) [facility], US KIDNEYS BILATERAL W/ BLADDER, 12/24/2024 12/22/2024Orders Only [facility] Scanner 1 scan: (1-Ord) [facility], CT CHEST ANGIOGRAM AND PULMONARY ARTERIES WITH IV CONTRAST, Orders Only [facility] Scanner 1 scan: (1-Ord) [facility], CT CHEST ANGIOGRAM AND PULMONARY ARTERIES WITH IV CONTRAST, Orders Only [facility] Scanner 1 scan: (1-Ord) [facility], CHEST AP OF PA AND LATERAL 2 VIEWS, 12/21/2024 12/11/2024Telephone [facility] [address] [place] [address] Vijay Lopez MD Medicare ANNUAL (subsequent) Visit12/10/2024Orders Only [facility] Scanner 1 scan: (1-Ord) [facility], Orders Only [facility] Scanner 1 scan: (1-Ord) [facility], CT CHEST W/O CONTRAST, 8:20 PM CDTAncillary Procedure [address] [address] 11/01/2024 7:25 PM CDTOffice Visit [facility] [address] [place] [phone] Mariella Lares PA Shortness Of Cenvsb5111/01/2024Travelfrom Last 3 Months Immunizations ImmunizationAdministration DatesNext DueAMB INFLUENZA IIV3 (AGE 65+ YRS) PF (Flu Clinic Only)12/15/2017Hepatitis B, Njhszpgakej73/23/1994,10/22/1992,09/10/1992 Influenza, High-dose Tjdiiefcddn36/10/2016,12/30/2014,10/22/2013Influenza, IIV3 (Age >=3 years)11/20/2012,11/11/2011,11/26/2010,11/06/2009,12/19/2008,12/25/2007 ,12/08/2006,12/13/2005Influenza, Inactivated AIIV4 (Age 65+ Years) Preserv Free 12/03/2021,12/01/2020,11/16/2019Influenza, Inactivated IIV3 (Age 65+ Years) Preserv Free11/10/2018,10/19/2016Pneumococcal Poly,23-Valent (Pneumovax) 02/23/2011,01/19/1996Pneumococcal conj 13-Valent (Prevnar 13)09/09/2015Td (Age >=7 Years)09/15/2001Tdap09/13/2011Zoster (Zostavax-ZVL, live)01/31/2012 Family History Medical HistoryRelationNameCommentsHeart DiseaseFatherMI x 2/had pacemakerStroke FatherCancerMotheruterusHeart DiseaseMotherRelationNameStatusCommentsFather (Age 82)strokeMotherDeceased (Age 93) Social History Tobacco UseTypesPacks/DayYears UsedDateSmoking Tobacco: [id number] - 02/14/1966Smokeless Tobacco: Never Tobacco Cessation:Counseling Given: Yes Alcohol UseStandard Drinks/WeekCommentsNo0 (1 standard drink = 0.6 oz pure alcohol)PHQ-2AnswerDate RecordedPHQ-2 TOTAL TMKSX542Social Connections AnswerDate RecordedDo you often feel lonely or isolated from those around you?0 05/16/2023Financial Resource StrainAnswerDate RecordedDifficulty of Paying Living Zszycdqc891ifficulty of Paying Living ExpensesNot on file 05/16/2023Food InsecurityAnswerDate RecordedDo you worry your food will run out before you are able to buy more?Transportation NeedsAnswerDate RecordedDoes lack of transportation keep you from medical appointments?1 4Does lack of transportation keep you from work, meetings or getting things that you need?Housing StabilityAnswerDate RecordedWhat is your housing situation today?UtilitiesAnswerDate RecordedDo you have trouble paying for utilities (for example, heat, electricity, water, phone)?1 05/16/2023Sex and Gender InformationValueDate RecordedSex Assigned at BirthNot on fileLegal FmsSfmg3902/28/2012 6:28 AM CSTGender IdentityNot on fileSexual OrientationNot on file Last Filed Vital Signs Vital SignReadingTime TakenCommentsBlood Nauptjjl861/66011/01/2024 7:33 PM CDT Gxfdf641811/01/2024 7:33 PM EMTJbfsfsgkjfk67.2 ??C (98.9 ??F)11/01/2024 7:33 PM CDTRespiratory Bjxj280511/01/2024 7:33 PM CDTOxygen Wfptpvqudb72%11/01/2024 7:33 PM CDTInhaled Oxygen Concentration--Rickaj12.4 kg (197 lb 3.2 oz)09/10/2024 11:40 AM PTVMfhmbg624.5 cm (5' 5.55)09/10/2024 11:40 AM CDTBody Mass Index32.27 09/10/2024 11:40 AM CDT Plan of Treatment Health MaintenanceDue DateLast DoneCommentsCOVID-19 vaccine series (#1) 1936RSV vaccine for adults or (1 - 1-dose 75+ series)05/08/2011 Zoster (shingles) series for age 50+ (1 of 2)Tetanus booster , 09/13/2011, 09/15/2001Depression screening for age 12+ , 12/03/2021, 12/04/2020, Additional history existsMedicare Wellness for age 65+, 12/03/2021, 12/01/2020, Additional history existsInfluenza Vaccine (#1), 12/01/2020, 11/16/2019, Additional history existsBMI (ht and wt on same day) for age 18+ 607/, 02/15/2023, 09/07/2022, Additional history existsHepatitis B series for 19+Fwztdrdkh57/23/1994, 10/22/1992, 09/10/1992Pneumococcal series for age 50+Qcfexeoxt35/26/2016, 02/23/2011, 01/19/1996 Medical Devices ImplantedTypeAreaManufacturerDevice IdentifierShelf Expiration DateModel / Serial / LotStandard Pacemaker Implanted:11/03/2011 by Maverick Freitas MD (Quantity not on file)Standard PacemakerADDRL1 / [id number] / Procedures Procedure NamePriorityDate/TimeAssociated DiagnosisCommentsSCAN-SLEEP STUDY 01/07/2025 12:00 AM CSTSCAN-STRESS TEST01/04/2025 12:00 AM NEW ACCOUNTS REPRESENTATIVE SCAN-LABORATORY NOUVPN0901/04/2025 12:00 AM NEW ACCOUNTS REPRESENTATIVE SCAN-RADIOLOGY OPYIBY5101/04/2025 12:00 AM NEW ACCOUNTS REPRESENTATIVE SCAN-ULTRASOUND RVILJH8512/24/2024 12:00 AM NEW ACCOUNTS REPRESENTATIVE SCAN-CT XATOFNFFEESARC55/08/2025 12:00 AM CSTSCAN-CT MGXTMWDQOOPKRO72/08/2025 12:00 AM CSTSCAN-RADIOLOGY XEEJER6512/21/2024 12:00 AM NEW ACCOUNTS REPRESENTATIVE SCAN-PULMONARY FUNCTION TEST12/10/2024 12:00 AM CDTSCAN-CT INTERPRETATION 12/06/2024 12:00 AM CDTXR CHEST 2 VIEWS PA AND KDOVXUJYYCY34/18/2025 8:20 PM CDT SOB (shortness of breath) from Last 3 Months Results * SCAN-SLEEP STUDY (01/07/2025 12:00 AM NEW ACCOUNTS REPRESENTATIVE) Narrative Authorizing ProviderResult TypeResult StatusScannerOTHERFinal Result * SCAN-RADIOLOGY REPORT (01/04/2025 12:00 AM NEW ACCOUNTS REPRESENTATIVE) Only the most recent of2 resultswithin the time period is included. Anatomical RegionLateralityModalityOther Narrative Authorizing ProviderResult TypeResult StatusScannerOTHERFinal Result * SCAN-LABORATORY REPORT (01/04/2025 12:00 AM NEW ACCOUNTS REPRESENTATIVE) Narrative Authorizing ProviderResult TypeResult StatusScannerOTHERFinal Result * SCAN-STRESS TEST (01/04/2025 12:00 AM NEW ACCOUNTS REPRESENTATIVE)Anatomical RegionLateralityModality Other Narrative Authorizing ProviderResult TypeResult StatusScannerOTHERFinal Result * SCAN-ULTRASOUND REPORT (12/24/2024 12:00 AM NEW ACCOUNTS REPRESENTATIVE)Anatomical RegionLaterality ModalityOther Narrative Authorizing ProviderResult TypeResult StatusScannerOTHERFinal Result * SCAN-CT INTERPRETATION (12/22/2024 12:00 AM NEW ACCOUNTS REPRESENTATIVE) Only the most recent of3 resultswithin the time period is included. Anatomical RegionLateralityModalityOther Narrative Authorizing ProviderResult TypeResult StatusScannerOTHERFinal Result * SCAN-PULMONARY FUNCTION TEST (12/10/2024 12:00 AM CDT) Narrative Authorizing ProviderResult TypeResult StatusScannerOTHERFinal Result * XR CHEST 2 VIEWS PA AND LATERAL (11/01/2024 8:20 PM CDT)Anatomical Region LateralityModalityCHEST, THORAX, Lung, HEARTComputed RadiographySpecimen (Source)Anatomical Location / LateralityCollection Method / VolumeCollection TimeReceived Time11/01/2024 8:23 PM CDT Impressions 11/01/2024 8:23 PM [...] Fitzgerald MD @ 11/01/2024 20:23:08 (Electronically Signed) Authorizing ProviderResult TypeResult StatusGrhighlands-cashiers hospital Becky Lares PAGENERAL IMAGINGFinal Result from Last 3 Months Insurance * Guarantor: Marcos Perez TypeRelation to PatientDate of BirthPhone Billing AddressPersonal/FtodzwYkwp[birth year][address] [place] [address] [address], [place] [address] * Guarantor: Marcos Perez TypeRelation to PatientDate of BirthPhone Billing AddressPersonal/BnpgdqBasv80/24/1936 [address] [facility] [place] [id number] Advance Directives TypeDate RecordedPatient RepresentativeExplanationPOLST02/23/20245355HVXAR9/9/2025 * Full Code (Latest Code Status on File) Date ActivatedDate InactivatedComments06/26/2012 2:34 PM07/05/2012 1:05 PM * Full Code Date ActivatedDate InactivatedComments11/03/2011 9:46 AM11/03/2011 7:06 PM * Full Code Date ActivatedDate InactivatedComments02/20/2011 11:10 PM02/24/2011 7:54 PM
--- OUTSIDE RECORDS SUMMARY | 2025-01-23 00:45 | XMS_ITS | Encounter Summary ---
Author Organization [facility] Address [address] [place] [address] Care Team Providers Care Crown Ironer Operator Name Role Phone Elsewhere, Pcp Primary Care Provider Unavailabl e Reason for Visit * ReasonCommentsMed Refill Encounter Details DateTypeDepartmentCare Team (Latest Contact Info)Hiftuozhwqq51/02/2025Refill [facility], [facility], Fourth Floor [address] [place] [address] Iliana Vazquez P.A.-C. [address] [place] [address] Med Refill Social History Tobacco UseTypesPacks/DayYears UsedDateSmoking Tobacco: KapjskTywfhucjbm006 02/15/1956 - 02/14/1966Smokeless Tobacco: FormerChewQuit: 02/14/1966Alcohol Use [...] has the electric, gas, oil, or water [employer] threatened to shut off services in your home?No12/22/2024Housing StabilityAnswerDate RecordedWhat is your living situation today?I have a steady place to live12/22/2024Education AnswerDate RecordedWhat is the highest level of school you have completed or the highest degree you have received?GED or ixctgkkukl03/05/2020Sex and Gender InformationValueDate RecordedSex Assigned at CsqbkXknn11/05/2018 9:08 AM CDT Legal AdrLopl2703/18/2016 7:31 AM CSTGender TrkymujhNoyz00/05/2018 9:08 AM CDT Sexual DojgsqoazloJaskytpf19/05/2018 9:08 AM CDTOccupationIndustryJob Start Date Job End DateRetiredNot on fileNot on fileNot on filedocumented as of this encounter Plan of Treatment DateTypeDepartmentCare Team (Latest Contact Info)Uemtvbpyjxu92/29/2025 10:15 AM CSTClinical Communication Virtual Review in [address] [address] 02/12/2025 11:15 AM CSTAppointment Department of Radiology, [facility], in [place], [place] [address] [place] [address] Lilli Moore M.D. [address] [place] [phone] 02/12/2025 11:50 AM CSTAppointment Department of Laboratory Medicine and Pathology, [facility] in [place], [place] [address] [place] [address] Lilli Moore M.D. [address] [place] [phone] 02/12/2025 1:30 PM CSTOffice Visit Division of Pulmonary Medicine in [place], [place] [address] [place] [address] Lilli Moore M.D. [address] [place] [phone] documented as of this encounter Visit Diagnoses Not on filedocumented in this encounter Care Teams Team MemberRelationshipSpecialtyStart DateEnd Date Elsewhere, Pcp PCP - GeneralInternal Qlxrthgm75/8/25documented as of this encounter
--- OUTSIDE RECORDS SUMMARY | 2025-01-23 00:45 | XMS_ITS | Encounter Summary ---
Author Organization [facility] Address [address] [place] [address] Care Team Providers Care Continuous Still Operator Name Role Phone Elsewhere, Pcp Primary Care Provider Unavailabl e Encounter Details DateTypeDepartmentCare Team (Latest Contact Info)Qjgijehtxth29/13/2025Clinical Communication Department of Hospital Internal Medicine in [place], [place] [address] [place] [phone] Iliana Vazquez P.A.-C. [address] [place] [address] Social History Tobacco UseTypesPacks/DayYears UsedDateSmoking Tobacco: OvkvncAolrhvewcd070 02/15/1956 - 02/14/1966Smokeless Tobacco: FormerChewQuit: 02/14/1966Alcohol Use [...] RecordedIn the past 12 months has the [employer], gas, oil, or water [employer] threatened to shut off services in your home?No12/22/2024Housing StabilityAnswerDate RecordedWhat is your living situation today?I have a steady place to live12/22/2024Education AnswerDate RecordedWhat is the highest level of school you have completed or the highest degree you have received?GED or unjahotsfg68/05/2020Sex and Gender InformationValueDate RecordedSex Assigned at KemreGwdn34/05/2018 9:08 AM CDT Legal PvlKbth0003/18/2016 7:31 AM CSTGender ZyohtkmiYgkv80/05/2018 9:08 AM CDT Sexual GtludflflgrUrxgzxwe29/05/2018 9:08 AM CDTOccupationIndustryJob Start Date Job End DateRetiredNot on fileNot on fileNot on filedocumented as of this encounter Plan of Treatment DateTypeDepartmentCare Team (Latest Contact Info)Uexcstqjiud98/29/2025 10:15 AM CSTClinical Communication Virtual Review in [address] [address] 02/12/2025 11:15 AM CSTAppointment Department of Radiology, [facility], in [place], [place] [address] [place] [address] Lilli Moore M.D. [address] [place] [address] 02/12/2025 11:50 AM CSTAppointment Department of Laboratory Medicine and Pathology, [facility] in [place], [place] [address] [place] [address] Lilli Moore M.D. [address] [place] [phone] 02/12/2025 1:30 PM CSTOffice Visit Division of Pulmonary Medicine in [place], [place] [address] [place] [address] Lilli Moore M.D. [address] [place] [phone] documented as of this encounter Visit Diagnoses Not on filedocumented in this encounter Care Teams Team MemberRelationshipSpecialtyStart DateEnd Date Elsewhere, Pcp PCP - GeneralInternal Qxwoevyu50/8/25documented as of this encounter
--- OUTSIDE RECORDS SUMMARY | 2025-01-23 00:45 | XMS_ITS | Encounter Summary ---
Author Organization [facility] Address [address] [place] [address] Care Team Providers Care [employer] Home Economics Teacher Name Role Phone Elsewhere, Pcp Primary Care Provider Unavailabl e Encounter Details DateTypeDepartmentCare Team (Latest Contact Info)Cfssfquxxrb96/28/2025Orders Only Division of Pulmonary Medicine in [place], [place] [address] [place] [address] Blanco Spivey M.D. [address] [place] [address] Social History Tobacco UseTypesPacks/DayYears UsedDateSmoking Tobacco: ApqabpYpscxgphve078 02/15/1956 - 02/14/1966Smokeless Tobacco: FormerChewQuit: 02/14/1966Alcohol Use [...] RecordedIn the past 12 months has the [employer], gas, oil, or water [employer] threatened to shut off services in your home?No12/22/2024Housing StabilityAnswerDate RecordedWhat is your living situation today?I have a steady place to live12/22/2024Education AnswerDate RecordedWhat is the highest level of school you have completed or the highest degree you have received?GED or yfjdljprqu02/05/2020Sex and Gender InformationValueDate RecordedSex Assigned at KdzroEgbu09/05/2018 9:08 AM CDT Legal MxwMzcf9103/18/2016 7:31 AM CSTGender OdxshdncVtpv79/05/2018 9:08 AM CDT Sexual XiqbblmihhhZvbomies14/05/2018 9:08 AM CDTOccupationIndustryJob Start Date Job End DateRetiredNot on fileNot on fileNot on filedocumented as of this encounter Plan of Treatment DateTypeDepartmentCare Team (Latest Contact Info)Qqqdrbbtade69/29/2025 10:15 AM CSTClinical Communication Virtual Review in [address] [address] 02/12/2025 11:15 AM CSTAppointment Department of Radiology, [facility] in [place], [place] [address] [place] [address] Lilli Moore M.D. [address] [place] [phone] 02/12/2025 11:50 AM CSTAppointment Department of Laboratory Medicine and Pathology, [facility] in [place], [place] [address] [place] [address] Lilli Moore M.D. [address] [place] [phone] 02/12/2025 1:30 PM CSTOffice Visit Division of Pulmonary Medicine in [place], [place] [address] [place] [address] Lilli Moore M.D. [address] [place] [phone] documented as of this encounter Visit Diagnoses Not on filedocumented in this encounter Care Teams Team MemberRelationshipSpecialtyStart DateEnd Date Elsewhere, Pcp PCP - GeneralInternal Xepmisdi60/8/25documented as of this encounter
--- OUTSIDE RECORDS SUMMARY | 2025-01-23 00:45 | XMS_ITS | Encounter Summary ---
Author Organization [facility] Address [address] [place] [address] Care Team Providers Care Microbiology Technician Name Role Phone Elsewhere, Pcp Primary Care Provider Unavailabl e Reason for Referral * Outpatient (Routine) - AuthorizedSpecialtyDiagnoses / ProceduresReferred By ContactReferred To Contact Diagnoses Lung Interstitial Disease (HCC) Lilli Moore M.D. [address] [place] [address] Phone: tel: fax: Referral IDStatusReasonStart DateExpiration DateVisits RequestedVisits [id number]/25/20255/ COVERING MACHINE OPERATOR Encounter Details DateTypeDepartmentCare Team (Latest Contact Info)Xnpzwxgriew23/25/2025Orders Only Division of Pulmonary Medicine in [place], [place] [address] [place] [phone] Lilli Moore M.D. [address] [place] [phone] Lung Interstitial Disease (HCC) (Primary Dx) Social History Tobacco UseTypesPacks/DayYears UsedDateSmoking Tobacco: FkkywvYjzpewtmxn628 02/15/1956 - 02/14/1966Smokeless Tobacco: FormerChewQuit: 02/14/1966Alcohol Use [...] the highest degree you have received?GED or vrmtdgfigf04/05/2020Sex and Gender InformationValueDate RecordedSex Assigned at NjzfrAdrt70/05/2018 9:08 AM CDT Legal RdoNqoo8803/18/2016 7:31 AM CSTGender SbiswzoeHegy54/05/2018 9:08 AM CDT Sexual VzhhcybxeeaQrsctvrr26/05/2018 9:08 AM CDTOccupationIndustryJob Start Date Job End DateRetiredNot on fileNot on fileNot on filedocumented as of this encounter Plan of Treatment DateTypeDepartmentCare Team (Latest Contact Info)Cpdyxlbnojb88/29/2025 10:15 AM CSTClinical Communication Virtual Review in [place], [place] [address] [place] [address] 02/12/2025 11:15 AM CSTAppointment Department of Radiology, [facility] in [place], [place] [address] [place] [phone] Lilli Moore M.D. [address] [place] [phone] 02/12/2025 11:50 AM CSTAppointment Department of Laboratory Medicine and Pathology, [facility] in [place], [place] [address] [place] [phone] Lilli Moore M.D. [address] [place] [phone] 02/12/2025 1:30 PM CSTOffice Visit Division of Pulmonary Medicine in [place], [place] [address] [place] [phone] Lilli Moore M.D. [address] [place] [phone] documented as of this encounter Visit Diagnoses Diagnosis Lung Interstitial Disease (HCC)- Primary documented in this encounter Care Teams Team MemberRelationshipSpecialtyStart DateEnd Date Elsewhere, Pcp PCP - GeneralInternal Qrwfizsi30/8/25documented as of this encounter
--- OUTSIDE RECORDS SUMMARY | 2025-01-23 00:46 | XMS_ITS | Encounter Summary ---
Author Organization [facility] Address [address] [place] [address] Care Team Providers Care Bag Bailer Name Role Phone Elsewhere, Pcp Primary Care Provider Unavailabl e Reason for Visit * ReasonOnset DateCommentsMed Ferqfnds24/25/2025 Encounter Details DateTypeDepartmentCare Team (Latest Contact Info)Zohpvxlhmir56/25/2025Clinical Communication Division of Pulmonary Medicine in [place], [place] [address] [place] [address] Blanco Spivey M.D. [address] [place] [phone] Med Question Social History Tobacco UseTypesPacks/DayYears UsedDateSmoking Tobacco: GrxksoIaoigjjgge225 02/15/1956 - 02/14/1966Smokeless Tobacco: FormerChewQuit: 02/14/1966Alcohol Use [...] the highest degree you have received?GED or zyywiwccpv27/05/2020Sex and Gender InformationValueDate RecordedSex Assigned at NpeebFkry90/05/2018 9:08 AM CDT Legal PvqEcnn3903/18/2016 7:31 AM CSTGender UmljnjseEsfp22/05/2018 9:08 AM CDT Sexual AudyblvtdeyXpdyzlaf91/05/2018 9:08 AM CDTOccupationIndustryJob Start Date Job End DateRetiredNot on fileNot on fileNot on filedocumented as of this encounter Miscellaneous Notes * Telephone Encounter - Brennen Lewis - 01/08/2025 1:41 PM CST Patient Call Daughter - Zoraida [phone] Care facility needs a faxed order of Bactrim and clinic notes if you want the patient to stop the bactrim on 01/19 or continue on with the prednisone tapering. Either way they need an order stating what you want them to do Melissa Carrera [phone] Marilyn Gross R DRIVEN BRUSH MAKER documented in this encounter Plan of Treatment DateTypeDepartmentCare Team (Latest Contact Info)Olatgtjwlph12/29/2025 10:15 AM CSTClinical Communication Virtual Review in [place], [place] 200 [place] [address] 02/12/2025 11:15 AM CSTAppointment Department of Radiology, [facility] in [place], [place] [address] [place] [phone] Lilli Moore M.D. [address] [place] [phone] 02/12/2025 11:50 AM CSTAppointment Department of Laboratory Medicine and Pathology, [facility] in [place], [place] [address] [place] [phone] Lilli Moore M.D. [address] [place] [phone] 02/12/2025 1:30 PM CSTOffice Visit Division of Pulmonary Medicine in [address] [phone] Lilli Moore M.D. [address] [place] [phone] documented as of this encounter Visit Diagnoses Not on filedocumented in this encounter Care Teams Team MemberRelationshipSpecialtyStart DateEnd Date Elsewhere, Pcp PCP - GeneralInternal Fmyaezzh83/8/25documented as of this encounter
--- OUTSIDE RECORDS SUMMARY | 2025-01-23 00:46 | XMS_ITS | Encounter Summary ---
Author Organization [facility] Address [address] [place] [address] Care Team Providers Care Senior Javascript Engineer Name Role Phone Elsewhere, Pcp Primary Care Provider Unavailabl e Encounter Details DateTypeDepartmentCare Team (Latest Contact Info)Vcnrxnfieyv85/13/2025Clinical Communication Division of Pulmonary Medicine in [place], [place] [address] [place] [address] Lilli Moore M.D. [address] [place] [address] Social History Tobacco UseTypesPacks/DayYears UsedDateSmoking Tobacco: NmcbucZeocjsadkk496 02/15/1956 - 02/14/1966Smokeless Tobacco: FormerChewQuit: 02/14/1966Alcohol Use [...] RecordedIn the past 12 months has the [facility], gas, oil, or water depict threatened to shut off services in your home?No12/22/2024Housing StabilityAnswerDate RecordedWhat is your living situation today?I have a steady place to live12/22/2024Education AnswerDate RecordedWhat is the highest level of school you have completed or the highest degree you have received?GED or ajvqbsklxv22/05/2020Sex and Gender InformationValueDate RecordedSex Assigned at PlkmtUnuk17/05/2018 9:08 AM CDT Legal TljOjhv1903/18/2016 7:31 AM CSTGender QieuzfflJefv51/05/2018 9:08 AM CDT Sexual PctuyirvvqtWurmytkj02/05/2018 9:08 AM CDTOccupationIndustryJob Start Date Job End DateRetiredNot on fileNot on fileNot on filedocumented as of this encounter Miscellaneous Notes * Telephone Encounter - Lilli Moore M.D. - 12/07/2024 3:42 PM CDT Patient readmitted for pneumonia. Moving up the patient's appointment in the clinic documented in this encounter Plan of Treatment DateTypeDepartmentCare Team (Latest Contact Info)Jdbstcmbzhb29/29/2025 10:15 AM CSTClinical Communication Virtual Review in [place], [place] [address] [place] [address] 02/12/2025 11:15 AM CSTAppointment Department of Radiology, [facility] in [place], [place] [address] [place] [phone] Lilli Moore M.D. [address] [place] [phone] 02/12/2025 11:50 AM CSTAppointment Department of Laboratory Medicine and Pathology, [facility] in [place], [place] [address] [place] [phone] Lilli Moore M.D. [address] [place] [phone] 02/12/2025 1:30 PM CSTOffice Visit Division of Pulmonary Medicine in [address] [phone] Lilli Moore M.D. [address] [place] [phone] documented as of this encounter Visit Diagnoses Not on filedocumented in this encounter Additional Health Concerns InfectionOnset DateLast IndicatedResolved JxghMJWIY57 Qnvlppo7012/06/2024 7:24 PM IKSLIPLI67 Tspdjtf47/ 1:10 AM RRBLJTUP66 Xppxkwg10 4:16 AM CSTdocumented as of this encounter Care Teams Team MemberRelationshipSpecialtyStart DateEnd Date Elsewhere, Pcp PCP - GeneralInternal Kfvbboyw29/8/25documented as of this encounter
--- OUTSIDE RECORDS SUMMARY | 2025-01-23 00:46 | XMS_ITS | Encounter Summary ---
Author Organization [facility] Address [address] [place] [address] Care Team Providers Care Addiction Nurse Name Role Phone Elsewhere, Pcp Primary Care Provider Unavailabl e Encounter Details DateTypeDepartmentCare Team (Latest Contact Info)Pevzlsfteen41/24/2025Orders Only Division of Pulmonary Medicine in [place], [place] [address] [place] [address] Lilli Moore M.D. [address] [place] [address] Social History Tobacco UseTypesPacks/DayYears UsedDateSmoking Tobacco: WdowadQkxbzhoigh904 02/15/1956 - 02/14/1966Smokeless Tobacco: FormerChewQuit: 02/14/1966Alcohol Use [...] RecordedIn the past 12 months has the [employer], gas, oil, or water [employer] threatened to shut off services in your home?No12/22/2024Housing StabilityAnswerDate RecordedWhat is your living situation today?I have a steady place to live12/22/2024Education AnswerDate RecordedWhat is the highest level of school you have completed or the highest degree you have received?GED or rgmuwwvlxs86/05/2020Sex and Gender InformationValueDate RecordedSex Assigned at TdxhhHpfm87/05/2018 9:08 AM CDT Legal NxtJvzr5003/18/2016 7:31 AM CSTGender GbaijqojUtcs23/05/2018 9:08 AM CDT Sexual XihelmhouzxOqwhhcal74/05/2018 9:08 AM CDTOccupationIndustryJob Start Date Job End DateRetiredNot on fileNot on fileNot on filedocumented as of this encounter Plan of Treatment DateTypeDepartmentCare Team (Latest Contact Info)Lwyptjuehqs84/29/2025 10:15 AM CSTClinical Communication Virtual Review in [address] [phone] 02/12/2025 11:15 AM CSTAppointment Department of Radiology, [facility] in [place], [place] [address] [place] [address] Lilli Moore M.D. [address] [place] [phone] 02/12/2025 11:50 AM CSTAppointment Department of Laboratory Medicine and Pathology, [facility] in [place], [place] [address] [place] [address] Lilli Moore M.D. [address] [place] [phone] 02/12/2025 1:30 PM CSTOffice Visit Division of Pulmonary Medicine in [place], [place] [address] [place] [address] Lilli Moore M.D. [address] [place] [phone] documented as of this encounter Visit Diagnoses Not on filedocumented in this encounter Care Teams Team MemberRelationshipSpecialtyStart DateEnd Date Elsewhere, Pcp PCP - GeneralInternal Xrroaoba21/8/25documented as of this encounter
--- OUTSIDE RECORDS SUMMARY | 2025-01-23 00:46 | XMS_ITS | Encounter Summary ---
Author Organization [facility] Address [address] [place] [address] Care Team Providers Care Marketing Assistant Retail Division Name Role Phone Elsewhere, Pcp Primary Care Provider Unavailabl e Reason for Referral * Cardiovascular-Diagnostic (Routine) - AuthorizedSpecialtyDiagnoses / ProceduresReferred By ContactReferred To Contact Diagnoses Hypertension Pulmonary (HCC) Procedures Echo Transthoracic (TTE) Rod Solorio M.D. [address] [place] [address] Phone: tel: fax: [facility] Referral IDStatusReasonStart DateExpiration DateVisits RequestedVisits [id number]/25/20252/25/202711 EDICAL ANALYTICAL SCIENTIST * Cardiovascular-Diagnostic (Routine) - AuthorizedSpecialtyDiagnoses / ProceduresReferred By ContactReferred To Contact Diagnoses Hypertension Pulmonary (HCC) Procedures Six Minute Walk Rod Solorio M.D. [address] [place] [address] Phone: tel: fax: [facility] Referral IDStatusReasonStart DateExpiration DateVisits RequestedVisits [id number]/25/20252/25/202711 EDICAL ANALYTICAL SCIENTIST * Outpatient (Routine) - AuthorizedSpecialtyDiagnoses / ProceduresReferred By ContactReferred To Contact Diagnoses Hypertension Pulmonary (HCC) Procedures ECG 12 Lead VT EKG 12 LEAD W I&R Rod Solorio M.D. [address] [place] [address] Phone: tel: fax: [facility] Referral IDStatusStephanieasonStart DateExpiration DateVisits RequestedVisits [id number]/25/20252/25/202711 EDICAL ANALYTICAL SCIENTIST * Outpatient (Routine) - AuthorizedSpecialtyDiagnoses / ProceduresReferred By ContactReferred To ContactCardiovascular Disease Diagnoses Hypertension Pulmonary (HCC) Rod Solorio M.D. [address] [place] [address] Phone: tel: fax: [facility] Referral IDStatusReasonStart DateExpiration DateVisits RequestedVisits [id number]/25/20255/27/202711 EDICAL ANALYTICAL SCIENTIST Encounter Details DateTypeDepartmentCare Team (Latest Contact Info)Gvteemhkvlc14/24/2025Clinical Communication Department of Cardiovascular Medicine in [place], [place] [address] [place] [address] Rod Solorio M.D. [address] [place] [address] Social History Tobacco UseTypesPacks/DayYears UsedDateSmoking Tobacco: QazphdBumslckjvf446 02/15/1955 - 02/14/1966Smokeless Tobacco: FormerChewQuit: 02/14/1966Alcohol Use [...] RecordedIn the past 12 months has the [employer], gas, oil, or water [employer] threatened to shut off services in your home?No12/22/2024Housing StabilityAnswerDate RecordedWhat is your living situation today?I have a steady place to live12/22/2024Education AnswerDate RecordedWhat is the highest level of school you have completed or the highest degree you have received?GED or /05/2020Sex and Gender InformationValueDate RecordedSex Assigned at AawhdWrzm48/05/2018 9:08 AM CDT Legal MatMves24/03/2016 7:31 AM CSTGender BrxjwnxzQaer99/05/2018 9:08 AM CDT Sexual SdcwhtewzjrEkzvrmxe61/05/2018 9:08 AM CDTOccupationIndustryJob Start Date Job End DateRetiredNot on fileNot on fileNot on filedocumented as of this encounter Plan of Treatment DateTypeDepartmentCare Team (Latest Contact Info)Xayuqfawamx96/29/2025 10:15 AM CSTClinical Communication Virtual Review in [place], [place] 200 [place] [address] 02/12/2025 11:15 AM CSTAppointment Department of Radiology, [facility] in [place], [place] [address] [place] [phone] Lilli Moore M.D. [address] [place] [phone] 02/12/2025 11:50 AM CSTAppointment Department of Laboratory Medicine and Pathology, [place], [place] [address] [place] [phone] Lilli Moore M.D. [address] [place] [phone] 02/12/2025 1:30 PM CSTOffice Visit Division of Pulmonary Medicine in [address] [phone] Lilli Moore M.D. [address] [place] [phone] NameTypePriorityAssociated DiagnosesOrder ScheduleCBC with Differential, Blood LabRoutine Hypertension Pulmonary (HCC) Expected: 07/08/2025, Expires: 04/09/2026SodiumLabRoutine Hypertension Pulmonary (HCC) Expected: 07/08/2025, Expires: 04/09/2026PotassiumLabRoutine Hypertension Pulmonary (HCC) Expected: 07/08/2025, Expires: 04/09/2026Creatinine with Estimated GFRLabRoutine Hypertension Pulmonary (HCC) Expected: 07/08/2025, Expires: 04/09/2026Calcium, TotalLabRoutine Hypertension Pulmonary (HCC) Expected: 07/08/2025, Expires: 04/09/2026Protein, TotalLabRoutine Hypertension Pulmonary (HCC) Expected: 07/08/2025, Expires: 04/09/2026lbuminLabRoutine Hypertension Pulmonary (HCC) Expected: 07/08/2025, Expires: 04/09/2026ST (Aspartate Aminotransferase)Lab Routine Hypertension Pulmonary (HCC) Expected: 07/08/2025, Expires: 04/09/2026LT (Alanine Aminotransferase)Lab Routine Hypertension Pulmonary (HCC) Expected: 07/08/2025, Expires: 04/09/2026lkaline PhosphataseLabRoutine Hypertension Pulmonary (HCC) Expected: 07/08/2025, Expires: 04/09/2026ilirubin, DirectLabRoutine Hypertension Pulmonary (HCC) Expected: 07/08/2025, Expires: 04/09/2026ilirubin, TotalLabRoutine Hypertension Pulmonary (HCC) Expected: 07/08/2025, Expires: 04/09/2026UN (Blood Urea Nitrogen)LabRoutine Hypertension Pulmonary (HCC) Expected: 07/08/2025, Expires: 04/09/2026Thyroid Function CascadeLabRoutine Hypertension Pulmonary (HCC) Expected: 07/08/2025, Expires: 04/09/2026Glucose, FastingLabRoutine Hypertension Pulmonary (HCC) Expected: 07/08/2025, Expires: 04/09/2026ECG 12 LeadECGRoutine Hypertension Pulmonary (HCC) Expected: 07/08/2025, Expires: 04/09/2026Six Minute WalkCardiac ServicesRoutine Hypertension Pulmonary (HCC) Expected: 07/08/2025, Expires: 04/09/2026NT-Pro B-Type Natriuretic Peptide (BNP) LabRoutine Hypertension Pulmonary (HCC) Expected: 07/08/2025, Expires: 04/09/2026Uric AcidLabRoutine Hypertension Pulmonary (HCC) Expected: 07/08/2025, Expires: 04/09/2026Echo Transthoracic (TTE) EchocardiographyRoutine Hypertension Pulmonary (HCC) Expected: 07/08/2025, Expires: 04/09/2026Hepatic Function PanelLabRoutine Hypertension Pulmonary (HCC) Expected: 07/08/2025, Expires: 04/09/2026Electrolyte (Chem 4) PanelLabRoutine Hypertension Pulmonary (HCC) Expected: 07/08/2025, Expires: 04/09/2026NameTypePriorityAssociated Diagnoses Order ScheduleCardiovascular Disease office visit (clinic) [facility] Outpatient ReferralRoutine Hypertension Pulmonary (HCC) Expected: 07/08/2025, Expires: 04/09/2026documented as of this encounter Visit Diagnoses Diagnosis Hypertension Pulmonary (HCC)- Primary documented in this encounter Care Teams Team MemberRelationshipSpecialtyStart DateEnd Date Elsewhere, Pcp PCP - GeneralInternal Nijgsicp41/8/25documented as of this encounter
--- OUTSIDE RECORDS SUMMARY | 2025-01-23 00:47 | XMS_ITS | Encounter Summary ---
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 [address] [place] [address] Med Question Social History Tobacco UseTypesPacks/DayYears UsedDateSmoking Tobacco: ZkoxuwTucblzuwgc791 02/15/1956 - 02/14/1966Smokeless Tobacco: FormerChewQuit: 02/14/1966Alcohol Use [...] the highest degree you have received?GED or iwzgefwwjh55/05/2020Sex and Gender InformationValueDate RecordedSex Assigned at TiekxExmk99/05/2018 9:08 AM CDT Legal EtyVtqg2203/18/2016 7:31 AM CSTGender McbaaihkTlux28/05/2018 9:08 AM CDT Sexual VxdjabwlqkwQfnvdzbu89/05/2018 9:08 AM CDTOccupationIndustryJob Start Date Job End DateRetiredNot on fileNot on fileNot on filedocumented as of this encounter Plan of Treatment DateTypeDepartmentCare Team (Latest Contact Info)Phebakgvmpm03/29/2025 10:15 AM CSTClinical Communication Virtual Review in [address] [phone] 02/12/2025 11:15 AM CSTAppointment Department of Radiology, [facility], in [place], [place] [address] [place] [address] Lilli Moore M.D. [address] [place] [phone] 02/12/2025 11:50 AM CSTAppointment Department of Laboratory Medicine and Pathology, [facility] in [place], [place] [address] [place] [address] Lilli Moore M.D. [address] [place] [phone] 02/12/2025 1:30 PM CSTOffice Visit Division of Pulmonary Medicine in [place], [place] [address] [place] [address] Lilli Moore M.D. [address] [place] [phone] documented as of this encounter Visit Diagnoses Not on filedocumented in this encounter Additional Health Concerns InfectionOnset DateLast IndicatedResolved YknrBHUYV07 Tawxtyb7511/17/2024 8:45 AM XYQSEPWM11 Oxnlhwh20 7:35 PM YETREUGK79 Ggcowkk50 7:24 PM CDTdocumented as of this encounter Care Teams Team MemberRelationshipSpecialtyStart DateEnd Date Elsewhere, Pcp PCP - GeneralFamily Xvfuofay67/3/1811documented as of this encounter
--- OUTSIDE RECORDS SUMMARY | 2025-01-23 00:47 | XMS_ITS | Clinical Summary ---
Author Organization [facility] Address [address] [place] [address] Care Team Providers Care Powertrain Calibration Engineer Name Role Phone Elsewhere, Pcp Primary Care Provider Unavailabl e Source Comments Patient records contain information from all sites at [facility]. For routine questions regarding patient records, call [phone] during business hours, M-F 8:00 AM - 5:00 PM Central Time. Record requests for emergency care only can be directed to [phone] at any time.[facility] Allergies Active AllergyReactionsCriticalityNoted DateCommentsBupivacaineOther (see comments)07/28/2021 hiccups Hydrocodone-XwaqxcfctaoykJzcagtaNsnqeh19/25/2010LevetiracetamOther (see comments)Bvpghr9708/01/2012 Confusion NxgywifcxPyocvqvMmhncv09/25/2074HwfalgeqcwcyAugviwrQhimrn29/11/2021 Leg Cramps LgqaqgccbvvCqwvpozRuoppl82/25/2015 Medications * This document contains information received from the source organization and may not represent a complete record from that organization. MedicationSigDispense QuantityRefillsLast FilledStart DateEnd DateStatus finasteride (PROSCAR) 5 mg tablet Take 5 mg by mouth daily.Active montelukast (SINGULAIR) 10 mg tablet Take 10 mg by mouth at bedtime.11/16/2019Active omeprazole (PriLOSEC) [address] capsule Take 20 mg by mouth every morning before breakfast.12/04/2021ctive sertraline (ZOLOFT) 50 mg tablet Take 50 mg by mouth daily.12/04/2021ctive budesonide (PULMICORT) 0.25 mg/2 mL nebulizer solution Inhale 0.25 mg 2 (two) times a day.02/15/2023ctive ferrous sulfate 325 mg (65 mg iron) tablet Take 1 tablet (65 mg of iron total) by mouth every other day. 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 60 each ctive dupilumab (Dupixent Pen) 300 mg/2 mL injection Indications:Asthma Severe (HCC),Eosinophilic Asthma (HCC)Inject 2 mL (300 mg total) under the skin as directed. Inject 600 mg under the skin once. Start 300 mg under the skin every 2 weeks 14 days after the 600 mg injection. 6 mL tive acetaminophen (TylenoL) 500 mg tablet Take 1,000 mg by mouth 2 (two) times a day as needed for pain.05/17/2024tive sennosides (senna) 8.6 mg tablet Take 8.6 mg by mouth at bedtime as needed for constipation.Active cholecalciferol, vitamin D3, 25 mcg (1,000 Unit) tablet Take 1 tablet (25 mcg total) by mouth daily.11/22/2024tive bdrdwyodjehp-xdww-UY-Ca-minerals 400 mcg (folic acid) tablet Take 1 tablet by mouth daily.11/22/2024tive bisacodyL (Dulcolax) 5 mg EC tablet Take 2 tablets (10 mg total) by mouth daily. 30 tablet 11/21/2024 2:59 PM CDT1tive ipratropium-albuteroL (DuoNeb) 0.5-2.5 mg/3 mL nebulizer solution Inhale 3 mL by nebulization 4 (four) times a day. 180 mL tive rivaroxaban (Xarelto) 15 mg tablet Take 1 tablet (15 mg total) by mouth daily with evening meal. 30 tablet 12/10/2024tive benzonatate (Tessalon) 200 mg capsule Take 200 mg by mouth 3 (three) times a day as needed.10/04/2023ctive nitroglycerin (Nitrostat) 0.[address] 0.4 mg under the tongue every 5 (five) minutes as needed.03/01/2024tive nystatin (Mycostatin) 100,000 unit/mL suspension Take 100,000 Units by mouth 3 (three) times a day. 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 30 tablet 12/27/2024tive predniSONE (Deltasone) 5 mg tablet Take 3 tablets for 14 days, then take 2 tablets for 14 days, then take 1 tablet for 14 days then stop. 84 tablet 01/04/2025 4:04 PM 01/21/2025tive torsemide 60 mg tablet Take 60 mg by mouth daily.tive torsemide 60 mg tablet Take 60 mg by mouth daily for 30 days. 60 tablet Discontinued predniSONE (Deltasone) 20 mg tablet Take 3 tablets (60 mg total) by mouth daily for 3 days, THEN 2 tablets (40 mg total) daily for 7 days, THEN 1 tablet (20 mg total) daily for 21 days. 44 tablet Discontinued(Stop Taking at Discharge) sulfamethoxazole-trimethoprim (Bactrim) 400-80 mg per tablet Indications:Prophylaxis, medicalTake 1 tablet by mouth daily Indications: Prophylaxis, medical. 30 tablet /Discontinued potassium chloride 10 mEq ER tablet Take 2 tablets by mouth 2 (two) times a day with meals./ Discontinued predniSONE (Deltasone) 10 mg tablet Take 20 mg by mouth daily.Discontinued(Stop Taking at Discharge) torsemide (Demadex) 20 mg tablet Take 3 tablets by mouth daily.Discontinued(Stop Taking at Discharge) predniSONE (Deltasone) 20 mg tablet Take 1.5 tablets (30 mg total) by mouth daily for 2 days, THEN 1 tablet (20 mg total) daily for 21 days./08/2024Expired torsemide 60 mg tablet Take 60 mg by mouth daily. 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 Lkgqhxxh36/27/2024sthma Ryhhir032Congestive Heart Fmocawb1102/15/2019Non- ST Elevation Myocardial Svtehfidqa67/11/2019Elevated Ybhhzevc84/10/2019 Overview (09/24/2018): Added automatically from request for surgery [id number] Failure Renal Acute (Acute Kidney Injury)03/11/20183125Itcaekm72/25/2019Prolonged QT Bpnievfy57/25/2019Aphthous Ulcer03/10/2018Dysfunction Vocal Cord03/02/2018 Bronchiolitis With Respiratory Syncytial Virus02/27/2018Obesity Body Mass Index 30-39.9 Adult02/27/2018Asthma Gdmfvapqaqia39/30/2018Insufficiency Adrenal Sdirmmx4401/13/2018Other Forms Of Angina Peoeywzb39/25/2018Pacemaker Cardiac Status Post07/19/2017Block Heart07/19/2017Asthma Mild Afgzhbrzqdir10/05/2018 Depressive Vauvpewn05/05/2018Depressed Cortisol Level07/19/2017Long Term (Current) Anticoagulant Lwmvsreuw20/11/2014pnea Sleep Gljrqagpplx18/14/2013 Fezusyhiukslyv30/30/2012trial Fibrillation Ptmixhimkv59/09/2012Other Specified Rhfdlqzvyl46/09/2012 Overview (09/10/2020): Patient has identified Health Care Agent(s): Yes- Pt verbally stated his preferences for spokespersons. Add Health Care Agents: Yes Health Care Agent(s): Primary Health Care Agent: Marie Perez Relationship:Spouse Phone: h)[phone] w)[phone] Secondary Health Care Agent: Zoraida Sushil Relationship: Daughter Phone: h)[phone] c)[phone] Conservator: Jose Lassitersil Relationship: Son Phone: c)[phone] Guardian: Relationship: Phone: Patient has Advance Care Plan Documents (Health Care Directive, POLST): No, Health Care Packet given to patient, family and declined. Patient has identified Specific Treatment Preferences: Yes Specific Treatment Preferences: a.) Code Status: CPR/Attempt Resuscitation Gastroesophageal Reflux Disease NOS04/17/2010Loss Hearing Onhcgmgjp06/04/2006 Overview (09/10/2020): using bilateral hearing aids Resolved Problems ProblemNoted DateDiagnosed DateResolved DateBacteriuria Yuforjlrstik59/27/2025 12/10/20240444Wjxqamdfx08/19//ronchitis Hookfsp07 COVID-19 Xjkmqqejq21/29/Shortness Of Breath (Concern For Covid-19) LeukocytosisRecurrent Pneumonia Personal Uiyagyd41Pneumonitis Due To Inhalation Of Food And Vomit PneumoniaOther Pulmonary Eosinophilia Not Elsewhere Fwehujwhul53Encephalopathy Aoawcibdq96/04/2019 11/09/2024lkalosis Ybesjeirp70Hyperglycemia03/11/2018 11/09/2024Insufficiency Adrenal Tmqatvfqs535Acute And Chronic Respiratory Failure With Uajcizn49Drowsiness03/10/2018 03/13/2018Candidiasis OralOxygen Wtvblntkr43/25/2019 11/09/20249432Heyjgiqkmhs34cute Respiratory Failure With Hypoxia Chronic Obstructive Pulmonary Disease Gofcgokgnyhi28/02/2019 03/16/2018Pneumoconiosis Due To Asbestos And Other Mineral Xboiwt4710/17/2009 11/09/2024 Encounters DateTypeDepartmentCare LljvJgpjcxdkctx22/02/2025Refill [facility], [facility], Fourth Floor [address] [place] [address] Iliana Vazquez P.A.-C. Med Bcoygv2101/11/2025Orders Only Division of Pulmonary Medicine in [place], [place] [address] [place] [address] Blanco Spivey M.D. 01/08/2025 1:00 PM CSTVirtual Visit Division of Pulmonary Medicine in [place], [place] [address] [place] [address] Jacky Javed M.D. Trende, Lauren M, R.R.T., L.R.T. 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 Med Vthcclhj54/25/2025Orders Only Division of Pulmonary Medicine in [place], [place] [address] [place] [address] Lilli Moore M.D. Lung Interstitial Disease (HCC) (Primary Dx)01/07/2025 10:30 AM CSTDiagnostic Division of Pulmonary Medicine in [place], [place] [address] [place] [address] Blanco Spivey M.D. Lung Interstitial Disease (HCC)01/07/2025 9:30 AM CSTDiagnostic Division of Pulmonary Medicine in [place], [place] [address] [place] [address] Blanco Spivey M.D. Lung Interstitial Disease (HCC)01/07/2025 8:00 AM CSTComprehensive Visit Department of Cardiovascular Medicine in [place], [place] [address] [place] [address] Rod Solorio M.D. Lung Interstitial Disease (HCC) (Primary Dx); Dyspnea; Chronic Diastolic (Congestive) Heart Failure (HCC)01/07/2025Orders Only Division of Pulmonary Medicine in [place], [place] [address] [place] [address] Lilli Moore M.D. 5Clinical Communication Department of Cardiovascular Medicine in [place], [place] [address] [place] [address] Rod Solorio M.D. 01/04/2025 3:42 PM BUTTONHOLER - 01/04/2025 11:59 PM CSTHospital Encounter Department of Radiology, [facility], in [place], [place] [address] [place] [address] Blanco Spivey M.D. Lung Interstitial Disease (HCC) Discharge Disposition: Home or Self Care01/04/2025 3:00 PM BUTTONHOLER - 01/04/2025 3:41 PM CSTHospital Encounter Department of Cardiac Rehabilitation in [place], [place] [address] [place] [address] Allyssa, Blanco H, M.D. Lung Interstitial Disease (HCC) Discharge Disposition: Home or Self Care01/04/2025 2:00 PM BUTTONHOLER - 01/04/2025 2:59 PM CSTHospital Encounter Department of Laboratory Medicine and Pathology, [place], [place] [address] [place] [phone] Blanco Spivey M.D. Lung Interstitial Disease (HCC) Discharge Disposition: Home or Self Care01/04/2025 12:30 PM CSTOffice Visit Division of Pulmonary Medicine in [place], [place] [address] [place] [phone] Blanco Spivey M.D. Lung Interstitial Disease (HCC) (Primary Dx); Eosinophilic Asthma (HCC); Respiratory Failure With Hypoxia (HCC); Acute And Chronic Respiratory Failure With Hypoxia (HCC)01/04/2025 7:45 AM BUTTONHOLER - 01/04/2025 1:59 PM CSTHospital Encounter [place] [address] [place] [phone] Blanoc Spivey M.D. Acute And Chronic Respiratory Failure With Hypoxia (HCC) Discharge Disposition: Home or Self Care12/27/2024linical Communication Department of Hospital Internal Medicine in [place], [place] [address] [place] [phone] Iliana Vazquez P.A.-C. 12/21/2024 5:22 PM BUTTONHOLER - 12/27/2024 2:33 PM CSTHospital Encounter [facility], Fourth Floor [address] [place] [address] Og Blanco D.O. Parikh, Riddhi S, M.B.B.S. Maryann Iglesias M.D., Ph.D. Ramón Torres M.D., M.S. 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 12/06/2024 12:50 PM CDT - 12/10/2024 3:14 PM CDTHospital Encounter [facility], [facility], Sixth Floor [address] [place] [address] Sharona Osborne M.D. Skalski, Joseph H, M.D. Thomas, Charles F Jr., M.D. Acute And Chronic Respiratory Failure With Hypoxia (HCC) (Primary Dx); Sepsis (HCC); Dysphagia Oropharyngeal Phase [R13.12]; Apnea Sleep Obstructive; Elevated Creatinine; Decline Functional Status [R53.81] Discharge Disposition: Home or Self Care5Clinical Communication Division of Pulmonary Medicine in [place], [place] [address] [place] [address] Lilli Moore M.D. 5Clinical Communication [facility] [address] [place] [phone] Lenny Brown APRN, C.N.P., D.N.P. Med Eaaxzgnk70/03/2025 8:52 PM CDT - 11/21/2024 2:52 PM CDTHospital Encounter [facility], Fourth Floor [address] [place] [address] Germán Gaspar M.D. Alexander Garcia M.B., B.Ch., B.A.O. Fred Leon M.D. Kolar, Gururaj J, M.D. Shortness Of Breath (Primary Dx); Pneumonia Community Acquired; Decline Functional Status [R53.81]; Failure Renal Acute (Acute Kidney Injury) Discharge Disposition: Care Home Care or Intermediate Care Purhsyrb06/03/2025 9:11 AM CDT - 11/16/2024 8:51 PM CDTHospital Encounter Department of Cardiovascular Diseases in [place], [place] [address] [place] [address] Robert Cisneros M.D., Ph.D. Discharge Disposition: Home or Self Care11/14/2024Refill Division of Pulmonary Medicine in [place], [place] [address] [place] [phone] Lilli Moore M.D. Med Hscyqm1511/12/2024linical Communication Division of Pulmonary Medicine in [place], [place] [address] [place] [phone] Lilli Moore M.D. Med Hdacpnqc27/26/2025 2:54 PM CDT - 11/12/2024 2:12 PM CDTHospital Encounter [facility], [facility], Third Floor [address] [place] [phone] Nydia Taylor M.D. Sahakian, Alexander J, M.D. Phelan, David M, M.D. Pneumonia (Primary Dx); Shortness Of Breath Discharge Disposition: Care Home Care or Intermediate Care Ewqqpodc73/26/2025 Clinical Communication Division of Pulmonary Medicine in [place], [place] [address] [place] [phone] Lilli Moore M.D. Symptom Questionfrom Last 3 Months Immunizations ImmunizationAdministration DatesNext DueHZV (ZOSTAVAX)01/31/2012HepB, Dqxwwoyuvrz55/23/1994,10/22/1992,09/10/1992Influenza TIV (IM)11/10/2018, 12/15/2017,10/19/2016Influenza, Quadrivalent, Adjuvanted, Preservative Free 12/03/2021,12/01/2020,11/16/2019Influenza, Seasonal, Yzvopkleix15/07/2013, 11/11/2011,11/06/2009,12/19/2008,12/25/2007,12/08/2006,12/13/2005,12/03/2004, 12/03/2003,12/12/20025542UNU5029/26/0223LRNC9613/10/2012,01/19/1996Td, (Adult) Yknrgxojsho61/02/5960Mwpu59/30/2012influenza trivalent high dose (HD)(PF) 11/24/2015,12/30/2014,10/22/2013influenza trivalent vaccine (6 months and older)(PF)11/26/2010 Family History Medical HistoryRelationNameCommentsClotting/ bleeding disorderFatherLorenz Coronary artery diseaseFatherLorenzHeart attackFatherLorenzHeart failureFather LorenzHyperlipidemia (high cholesterol)FatherLorenzHypertensionFatherLorenz StrokeFatherLorenzCancerMotherFredaCoronary artery diseaseMotherFredaHeart attackMotherFredaHeart failureMotherFredaHyperlipidemia (high cholesterol)Mother FredaHypertensionMotherFredaRelationNameStatusCommentsFatherLorenzDeceasedMother FredaDeceased Social History Tobacco UseTypesPacks/DayYears UsedDateSmoking Tobacco: VnxajmCzmpxukmtd306 02/15/1956 - 02/14/1966Smokeless Tobacco: FormerChewQuit: 02/14/1966 Tobacco Cessation:Counseling Given: Not Answered Alcohol UseStandard Drinks/WeekCommentsNo0 (1 standard drink = 0.6 oz pure alcohol)Humiliation, Afraid, Rape, and Kick questionnaireAnswerDate Recorded Within the last year, have you been afraid of your partner or ex-partner?No 12/22/2024Within the last year, have you been humiliated [...] RecordedIn the past 12 months has the [employer], gas, oil, or water Just Between Friends threatened to shut off services in your home?No12/22/2024Housing StabilityAnswerDate RecordedWhat is your living situation today?I have a steady place to live12/22/2024Education AnswerDate RecordedWhat is the highest level of school you have completed or the highest degree you have received?GED or mrvwmerkye29/05/2020Sex and Gender InformationValueDate RecordedSex Assigned at VvabpOpcn07/05/2018 9:08 AM CDT Legal SzfWdjh2703/18/2016 7:31 AM CSTGender DcvynfqeDnpp87/05/2018 9:08 AM CDT Sexual HmwfeytlgsaHwagblza48/05/2018 9:08 AM CDTOccupationIndustryJob Start Date Job End DateRetiredNot on fileNot on fileNot on file Last Filed Vital Signs Vital SignReadingTime TakenCommentsBlood Aysyofaf890/7001/07/2025 7:47 AM CSTavg of 1Nlsqk7368/24/2025 7:47 AM CSTavg of 0Jtwxkgjwckp74.8 ??C (98.2 ??F) 12/27/2024 7:58 AM CSTRespiratory Yrnm969502/27/2024 7:58 AM CSTOxygen Saturation 96%01/07/2025 7:47 AM CSTInhaled Oxygen Concentration--Azwuat29.7 kg (195 lb 8.8 oz)01/07/2025 7:47 AM MRTKhveoy297.4 cm (5' 6.3)01/07/2025 7:47 AM CSTBody Mass Index31.28103/09/2024 7:47 AM BUTTONHOLER Plan of Treatment DateTypeDepartmentCare Team (Latest Contact Info)Nixzcffcwxz98/29/2025 10:15 AM CSTClinical Communication Virtual Review in [place], [place] [address] [place] [address] 02/12/2025 11:15 AM CSTAppointment Department of Radiology, [facility], in [place], [place] [address] [place] [phone] Lilli Moore M.D. [address] [place] [phone] 02/12/2025 11:50 AM CSTAppointment Department of Laboratory Medicine and Pathology, [facility], in [place], [place] [address] [place] [phone] Lilli Moore M.D. [address] [place] [phone] 02/12/2025 1:30 PM CSTOffice Visit Division of Pulmonary Medicine in [place], [place] [address] [place] [phone] Lilli Moore M.D. [address] [place] [phone] Health MaintenanceDue DateLast DoneCommentsDepression Monitoring (PHQ-9) 1936COVID-19 Vaccine (#1)2RSV vaccine - (32-36 weeks) or 50+ years (1 - 1-dose 75+ series)05/08/2011Zoster Vaccines (1 of 2)03/27/2012 01/31/2012DTaP,Tdap,and Td Vaccines (2 - Td or Tdap), 09/15/2001Depression Monitoring (PHQ-9 for quality tracking)02/15/2024Influenza Vaccine (#1)51, 12/01/2020, 11/16/2019, Additional history existsCreatinine Level (Kidney Function Test)6103/06/2024, 12/27/2024, 12/25/2024, Additional history existsPotassium Level, 12/27/2024, 12/25/2024, Additional history existsSodium Level01/04/2026 01/04/2025, 12/27/2024, 12/25/2024, Additional history existsHepatitis B AadyhcnaRkyzavxov04/23/1994, 10/22/1992, 09/10/1992Pneumococcal vaccine (50+ years)Zogpwnmyg95/26/2016, 02/23/2011, 01/19/1996Fall Risk Screen (Annual) Yrqlmhgof95/08/2025IPV VaccinesAged OutNo longer eligible based on patient's age to complete this topic Medical Devices ImplantedTypeAreaManufacturerDevice IdentifierShelf Expiration DateModel / Serial / LotMedtronic 5524m Capsure Sp [id number] Implanted:05/01/1998 (Quantity not on file)Cardiac MuylHshdajkmb1847W CAPSURE SP / [id number] / Medtronic 5524m Capsure Sp [id number] Implanted:05/01/1998 (Quantity not on file)Cardiac CipwAwbskdpex7239T CAPSURE SP / [id number] / Knee ImplantKnee ImplantRight: KneeKnee Implant-02/25/2012 Implanted:02/25/2012 (Quantity not on file)Knee ImplantLeft: Giovanni Leon Tyrx - [id number] Implanted:Qty: 1 on 05/30/2023 by Sidney Bartlett M.D. at [facility] or XuhmpHkspxrzoe58/05/[id number] / / [id number] Dg Ftrd Resct Fl Thck - [id number] Implanted:Qty: 1 on 08/23/2023 by Nikos [facility]done[facility] M.B.BAnaSAna [facility]: [facility]09/14/2024 200.76 / / [id number] Carly Alba [id number] - [id number] Implanted:Qty: 1 on 05/30/2023 [facility]10/11/2024W1DR01 / [id number] / ExplantedTypeAreaManufacturerDevice IdentifierShelf Expiration DateModel / Serial / LotMedtronic Addrl1 Adapta [id number] Implanted:10/24/2011 (Quantity not on file) Explanted:Qty: 1 on 05/30/2023 by [facility]ADDRL1 ADAPTA / [id number] / Procedures Procedure NamePriorityDate/TimeAssociated DiagnosisCommentsOXYGEN TITRATION Pqrzfrs5601/07/2025 9:49 AM BUTTONHOLER Lung Interstitial Disease (HCC) PUL HOME OVERNIGHT QYKNBZNEKjkierj98/24/2025 Lung Interstitial Disease (HCC) DX CHEST AP OR PA AND LATERAL 2 VIEWSRAD - Routine (most inpatients and all outpatients)01/04/2025 3:53 PM BUTTONHOLER Lung Interstitial Disease (HCC) 6 MINUTE LQTKRxplnni66/21/2025 3:00 PM BUTTONHOLER Lung Interstitial Disease (HCC) RXSVrgiabv88/21/2025 2:47 PM BUTTONHOLER Lung Interstitial Disease (HCC) COMPREHENSIVE METABOLIC PANEL, S/FYzhmfat71/21/2025 2:23 PM BUTTONHOLER Lung Interstitial Disease (HCC) NT-PRO B-TYPE NATRIURETIC PEPTIDE (BNP), RPpgxjxc42/21/2025 2:23 PM BUTTONHOLER Lung Interstitial Disease (HCC) CBC WITH DIFFERENTIAL, XEboeima84/21/2025 2:23 PM BUTTONHOLER Lung Interstitial Disease (HCC) PULMONARY FUNCTION WINGCVypxufz26/21/2025 8:30 AM BUTTONHOLER Acute And Chronic Respiratory Failure With Hypoxia (HCC) CT CHEST WITHOUT IV CONTRASTRAD - Routine (most inpatients and all outpatients) 01/04/2025 8:23 AM BUTTONHOLER Acute And Chronic Respiratory Failure With Hypoxia (HCC) BASIC METABOLIC PANEL, S/SRfmen5812/27/2024 8:57 AM BUTTONHOLER RENAL FUNCTION PANEL, HGrdyxsd80/11/2025 8:49 PM BUTTONHOLER MAGNESIUM, APcwnjhj30/11/2025 8:49 PM BUTTONHOLER CBC WITH DIFFERENTIAL, CGqaybof58/11/2025 8:49 PM BUTTONHOLER BASIC METABOLIC PANEL, S/PSTAT102/24/2024 12:19 PM BUTTONHOLER RT TO ARRANGE FOR HOME NTLPvcywrs96/10/2025 11:16 AM CSTUS KIDNEYS BILATERAL WITH BLADDERRAD - Routine (most inpatients and all outpatients)12/24/2024 10:13 AM BUTTONHOLER DIPSTICK, ARafsmcu52/10/2025 9:52 AM BUTTONHOLER PH, TCgsfmcx04/10/2025 9:52 AM BUTTONHOLER OSMOLALITY, RPmxkpkb64/10/2025 9:52 AM BUTTONHOLER MICROSCOPIC ZQBTSYWEGQmyajjy05/10/2025 9:52 AM BUTTONHOLER URINALYSIS WITH TTFIEJLYHPOCrsictd04/10/2025 9:52 AM BUTTONHOLER SODIUM, RANDOM, ETazscbp03/10/2025 9:52 AM BUTTONHOLER CREATININE, RANDOM, CEgpqyzv21/10/2025 9:52 AM BUTTONHOLER BASIC METABOLIC PANEL, S/GOdrwroa94/09/2025 8:49 PM BUTTONHOLER CBC WITH DIFFERENTIAL, SAyrshws80/09/2025 8:49 PM BUTTONHOLER MAGNESIUM, MFrdecmq27/09/2025 8:47 PM BUTTONHOLER RESPIRATORY ASSESS AND LFSMESzvhjqx61/09/2025 9:54 AM CSTPATIENT'S OWN CPAP/RAFSLXaodnfu28/09/2025 3:54 AM CSTCOMPREHENSIVE METABOLIC PANEL, S/PRoutine 12/22/2024 9:29 PM BUTTONHOLER CBC WITH DIFFERENTIAL, ORacfyqz78/08/2025 9:29 PM BUTTONHOLER (TTE) 2D ECHO DOPPLER EBPCOIxgfuxw36/08/2025 3:17 PM BUTTONHOLER PACER DUAL CHAMBER INTERROGATION WITH MVQXZHYTPCKZrqbhbz84/08/2025 11:[address] CHEST ANGIOGRAM AND PULMONARY ARTERIES WITH IV CONTRASTRAD - Semiurgent (Fast; most ED patients; some inpatients)12/22/2024 1:17 AM BUTTONHOLER IFLU A, B, SARS COV-2, PCR, RAPID,VSTAT102/22/2024 12:36 AM BUTTONHOLER TROPONIN T, 2H/6H REFLEX, 5TH GEN, PLfnkg3912/21/2024 9:44 PM BUTTONHOLER PATIENT ZEDGMWPAYW40/07/2025 6:19 PM BUTTONHOLER VENOUS BLOOD GAS W/O PQTAMFRT54/07/2025 6:19 PM BUTTONHOLER PROTHROMBIN TIME (PT), PSTAT102/21/2024 6:19 PM BUTTONHOLER TROPONIN T, BASELINE, 5TH GEN, PSTAT102/21/2024 6:19 PM BUTTONHOLER NT-PRO B-TYPE NATRIURETIC PEPTIDE (BNP), SSTAT102/21/2024 6:19 PM BUTTONHOLER CBC WITH DIFFERENTIAL, BSTAT102/21/2024 6:19 PM BUTTONHOLER BASIC METABOLIC PANEL, S/PSTAT102/21/2024 6:19 PM BUTTONHOLER DX CHEST AP OR PA AND LATERAL 2 VIEWSRAD - Semiurgent (Fast; most ED patients; some inpatients)12/21/2024 5:57 PM BUTTONHOLER VILQTME1712/21/2024 5:26 PM BUTTONHOLER CBC WITH DIFFERENTIAL, MMhevwvo77/27/2025 12:24 AM CDT BASIC METABOLIC PANEL, S/HMdxswtq60/27/2025 12:24 AM CDT FLOW FISH, TELOMERE KMFZVBXagqpag25/27/2025 12:24 AM CDT BASIC METABOLIC PANEL, S/XRnhmhdg08/26/2025 12:39 AM CDT CBC WITH DIFFERENTIAL, KFhxbdln91/26/2025 12:38 AM CDT HEMOGLOBIN A1C, EFggczke89/26/2025 12:33 AM CDT MAGNESIUM, XPlkkq8012/08/2024 6:07 PM CDT BASIC METABOLIC PANEL, S/EOwghk1112/08/2024 6:07 PM CDT AB TO EXTRACTABLE NUCLEAR AG EVAL, ZIobulhh15/25/2025 1:34 AM CDT CONNECTIVE TISSUE DISEASE CASCADE, EDYTA, CTpuruyk32/25/2025 1:34 AM CDT ANCA VASCULITIS PANEL, SPjoqigr66/25/2025 1:34 AM CDT BASIC METABOLIC PANEL, S/PKvensgk09/25/2025 1:33 AM CDT CBC WITH DIFFERENTIAL, UMgloiur32/25/2025 1:33 AM CDT DIPSTICK, WBpfnjvx84/24/2025 7:13 PM CDT OSMOLALITY, TMftxxjq64/24/2025 7:13 PM CDT MICROSCOPIC CLZQJXCWLZotlcbs92/24/2025 7:13 PM CDT PH, LDnvungx09/24/2025 7:13 PM CDT URINALYSIS WITH IHAIXVGNERUGutakxg51/24/2025 7:13 PM CDT (1, 3) JNQH-Y-YFQTWQ (FUNGITELL), KZpocdgl37/24/2025 3:51 PM CDT FL SWALLOW FUNCTION WITH VIDEO AND SPEECH OR OT FOR RSTRAD - Timed (for specific dates/times)12/07/2024 11:23 AM CDT EQRJbvjgfi07/24/2025 7:26 AM CDT BASIC METABOLIC PANEL, S/VHwlhezt17/24/2025 6:03 AM CDT CBC WITH DIFFERENTIAL, ZIavjibs80/24/2025 6:03 AM CDT C-REACTIVE PROTEIN (CRP), S/ENrsotvj99/24/2025 6:00 AM CDT HEPATIC FUNCTION PANEL, GUemtxte63/24/2025 6:00 AM CDT LACTATE, B/ISsdtbhw78/24/2025 12:10 AM CDT LACTATE, B/RHdume4212/06/2024 7:52 PM CDT TROPONIN T, 6H, 5TH GEN, JCzuec4912/06/2024 7:[address] CHEST WITHOUT IV CONTRASTRAD - Semiurgent (Fast; most ED patients; some inpatients)12/06/2024 4:43 PM CDT LACTATE FOR SEPSIS WITH REFLEX, UHTJXBSI72/23/2025 4:33 PM CDT VBG & LYTES CG8+, POCT, BSTAT1 4:32 PM CDT BACTERIA / THERESA CULTURE, PGHCAAMRQ32/23/2025 4:32 PM CDT BACTERIA / THERESA CULTURE, YJTNQWLRT03/23/2025 4:30 PM CDT OSMOLALITY, USTAT1 4:28 PM CDT MICROSCOPIC ASUOWKYWFWVXZ57/23/2025 4:28 PM CDT PH, USTAT1 4:28 PM CDT DIPSTICK, USTA12/06/2024 4:28 PM CDT URINALYSIS WITH YZLGPPYADOGMFVD24/23/2025 4:28 PM CDT RESPIRATORY PANEL, PCR, MHKHBZ02 4:28 PM CDT BACTERIAL CULTURE, AEROBIC + SUSC, SMZCIBCWO92/23/2025 4:28 PM CDT TROPONIN T, 2H/6H REFLEX, 5TH GEN, IEtvee3212/06/2024 3:54 PM CDT PROTHROMBIN TIME (PT), PSTAT1 1:40 PM CDT TROPONIN T, BASELINE, 5TH GEN, PSTAT1 1:40 PM CDT NT-PRO B-TYPE NATRIURETIC PEPTIDE (BNP), SSTAT1 1:40 PM CDT CBC WITH DIFFERENTIAL, BSTAT1 1:40 PM CDT BASIC METABOLIC PANEL, S/PSTAT1 1:40 PM CDT DX CHEST AP OR PA AND LATERAL 2 VIEWSRAD - Semiurgent (Fast; most ED patients; some inpatients)12/06/2024 1:23 PM CDT NSQMDVB6612/06/2024 12:46 PM CDT BASIC METABOLIC PANEL, S/PSTAT10 8:08 AM CDT BASIC METABOLIC PANEL, S/QLdcnbqn51/07/2025 9:01 PM CDT C-REACTIVE PROTEIN (CRP), S/LKprwhbe43/06/2025 8:22 PM CDT CBC WITH DIFFERENTIAL, GHlvlyva24/06/2025 8:22 PM CDT RENAL FUNCTION PANEL, BBjdiwzw82/05/2025 8:05 PM CDT CBC WITH DIFFERENTIAL, TKnruywb55/05/2025 8:05 PM CDT C-REACTIVE PROTEIN (CRP), S/QBksghla07/05/2025 8:03 PM CDT STREPTOCOCCUS PNEUMONIAE AG, WKjsawtt41/05/2025 6:51 PM CDT LEGIONELLA AG, JTpihfye04/05/2025 6:51 PM CDT RESPIRATORY PANEL, PCR, WTCosguai10/05/2025 5:[address] CHEST WITHOUT IV CONTRASTRAD - Routine (most inpatients and all outpatients) 11/18/2024 2:02 PM CDT PHOSPHORUS (INORGANIC), FUaucvcp22/04/2025 8:32 PM CDT MAGNESIUM, FSfemchf57/04/2025 8:32 PM CDT CBC WITH DIFFERENTIAL, KVitltek27/04/2025 8:32 PM CDT BASIC METABOLIC PANEL, S/IPvkpfer02/04/2025 8:32 PM CDT MRSA/STAPHYLOCOCCUS AUREUS, NASAL, BY CJDFyxtsyd93/04/2025 9:55 AM CDT NT-PRO B-TYPE NATRIURETIC PEPTIDE (BNP), SSTAT1 8:43 AM CDT BACTERIA / THERESA CULTURE, YJJHNTJUI45/04/2025 8:43 AM CDT LACTATE, POCT, BSTAT1 8:38 AM CDT VBG & LYTES CG8+, POCT, BSTAT1 8:34 AM CDT BACTERIA / THERESA CULTURE, PJGEBPZNV51/04/2025 8:33 AM CDT IFLU A, B, SARS COV-2, PCR, RAPID,VSTAT1 8:14 AM CDT LACTATE, BSTAT1 10:02 PM CDT BASIC METABOLIC PANEL, S/PSTAT1 10:02 PM CDT CBC WITH DIFFERENTIAL, BSTAT1 10:01 PM CDT DX CHEST AP OR PA AND LATERAL 2 VIEWSRAD - Semiurgent (Fast; most ED patients; some inpatients)11/16/2024 9:19 PM CDT INTERFACED REMOTE DEVICE TPTTNHepozfe19/03/2025 9:11 AM CDT BASIC METABOLIC PANEL, S/DThmblkk98/28/2025 10:36 PM CDT CBC WITH DIFFERENTIAL, ZJexultq32/28/2025 10:36 PM CDT RT TO ARRANGE FOR HOME UKWViyzgdx71/28/2025 11:14 AM CDTADULT OXYGEN THERAPY Ayffnpa8011/11/2024 8:00 AM CDTCBC WITHOUT DIFFERENTIAL, HEqzicvk10/27/2025 10:58 PM CDT BASIC METABOLIC PANEL, S/YNoosuho16/27/2025 10:58 PM CDT ADULT OXYGEN DZNOWNVJljbhhz40/27/2025 8:01 PM CDTADULT OXYGEN THERAPYRoutine 11/10/2024 8:01 AM CDTTROPONIN T, 2H/6H REFLEX, 5TH GEN, AAbwpz8211/10/2024 8:00 AM CDT TROPONIN T, BASELINE, 5TH GEN, PSTAT11/10/2024 5:06 AM CDT CFPTPBK0911/10/2024 4:51 AM CDT GLUCOSE POCT, WIsjwfgp23/27/2025 4:43 AM CDT MAGNESIUM, TTwzuwyi18/26/2025 11:32 PM CDT BASIC METABOLIC PANEL, S/IUzatjlb51/26/2025 11:32 PM CDT CBC WITH DIFFERENTIAL, PVeemado51/26/2025 11:32 PM CDT TROPONIN T, 6H, 5TH GEN, GMomwh2811/09/2024 11:32 PM CDT PATIENT'S OWN CPAP/GSQLBFnsscgf18/26/2025 10:48 PM CDTADULT OXYGEN THERAPY Cmifjet1411/09/2024 9:44 PM CDTADULT OXYGEN JGXKCZBKpjzvtx30/26/2025 9:44 PM CDT TROPONIN T, 2H/6H REFLEX, 5TH GEN, PJyuof4911/09/2024 7:19 PM CDT PATIENT FSHDIRUYVT80/26/2025 4:49 PM CDT PROTHROMBIN TIME (PT), PSTAT11/09/2024 4:49 PM CDT NT-PRO B-TYPE NATRIURETIC PEPTIDE (BNP), SSTAT11/09/2024 4:49 PM CDT VENOUS BLOOD GAS W/O OTFWRVRQ48/26/2025 4:49 PM CDT BASIC METABOLIC PANEL, S/PSTAT11/09/2024 4:49 PM CDT CBC WITH DIFFERENTIAL, BSTAT11/09/2024 4:49 PM CDT TROPONIN T, BASELINE, 5TH GEN, PSTAT11/09/2024 4:49 PM CDT DX CHEST AP OR PA AND LATERAL 2 VIEWSRAD - Semiurgent (Fast; most ED patients; some inpatients)11/09/2024 3:24 PM CDT XNKASJX2111/09/2024 3:01 PM CDT from Last 3 Months Results * Oxygen Titration (01/07/2025 9:49 AM BUTTONHOLER)ComponentValueRef RangeTest Method Analysis TimePerformed AtPathologist Signature[1] Inspired Gas (L/min)Room air MMODAL[1] InterfaceN/AMMODAL[1] Speed (mph)RestMMODAL[1] Grade (%)0.0MMODAL[1] Time (min)10MMODAL[1] SpO2 (%)98MMODAL[1] Heart Ufro49DCCQGF[1] Ratings of Perceived Exertion (6-20)6MMODAL[2] Inspired Gas (L/min)Room airMMODAL[2] InterfaceN/AMMODAL[2] Speed (mph)1.2MMODAL[2] Grade (%)0.0MMODAL[2] Time (min) 3MMODAL[2] SpO2 (%)96MMODAL[2] Heart Lngo340IJHPVD[2] Ratings of Perceived Exertion (6-20)12MMODAL[3] Inspired Gas (L/min)Room airMMODAL[3] InterfaceN/A MMODAL[3] Speed (mph)1.2MMODAL[3] Grade (%)1.0MMODAL[3] Time (min)1.5MMODAL[3] SpO2 (%)95MMODAL[3] Heart Indp535FSAVVH[3] Ratings of Perceived Exertion (6-20)14MMODALCommentTotal exercise time: 4.5 minutesMMODALSpecimen (Source) Anatomical Location / LateralityCollection Method / VolumeCollection Time Received Time Narrative Authorizing ProviderResult TypeResult StatusReid Yoseph Spivey M.D.PFT ORDERABLES Final ResultPerforming OrganizationAddressCity/State/ZIP CodePhone Number MMODAL NA * Home Overnight Oximetry (01/07/2025)Specimen (Source)Anatomical Location / LateralityCollection Method / VolumeCollection TimeReceived Time01/07/2025 Narrative LAGRANGE NAOMIE MORAN - 01/09/2025 8:06 AM BUTTONHOLER Procedure: Overnight oximetry was performed on room air and CPAP 15. The patient stated they did not consume alcohol and did not take sedative medication on the night of the study, and stated quality of sleep was the same as usual. Holland Sleepiness Scale was 9. The time spent <89% was 1.3 minutes, with a 4% desaturation index of 1.5. Impression: There appears to be adequate support on current CPAP settings. ??Please note the persistence of heart rate variability and tachycardia during sleep. Authorizing ProviderResult TypeResult StatusBlanco Spivey M.D.PFT ORDERABLES Final ResultPerforming OrganizationAddressCity/State/ZIP CodePhone Number JONES NVISION EAP * DX Chest AP or PA and Lateral 2 Views (01/04/2025 3:53 PM BUTTONHOLER) Only the most recent of5 resultswithin the time period is included. Anatomical RegionLateralityModalityChest, Thoracic RST LOS, Thoracic ARZ LOS, Thoracic FLA LOSN/ADigital RadiographySpecimen (Source)Anatomical Location / LateralityCollection Method / VolumeCollection TimeReceived Time Impressions 01/04/2025 4:04 PM BUTTONHOLER No change since 12/21/2024. 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 Small lung volumes. Pacemaker. Calcified aorta. Degenerative changes of the spine. Chest otherwise negative. Narrative 01/04/2025 4:04 PM BUTTONHOLER EXAM: DX CHEST AP OR PA AND LATERAL 2 VIEWS Procedure Note Marcos Crisostomo M.D. - 01/04/2025 EXAM: DX CHEST AP OR PA AND LATERAL 2 VIEWS IMPRESSION: No change since 12/21/2024. Stable interstitial fibrotic changes inpredominantly in the mid and lower lungs. Small lung volumes. Pacemaker.Calcified aorta. Degenerative changes of the spine. Chest otherwisenegative. Authorizing ProviderResult TypeResult Sandy Spivey M.D.IMG DIAGNOSTIC IMAGING PROCEDURESFinal Result * 6 MINUTE WALK (01/04/2025 3:00 PM BUTTONHOLER)Specimen (Source)Anatomical Location / LateralityCollection Method / VolumeCollection TimeReceived Time Narrative Gauri Rabago M.D., M.P.H. - 01/04/2025 3:00 PM BUTTONHOLER Gauri Rabago M.D., M.P.H. 01/05/2025 3:30 PM [...] - Very Severe Time of Test: ??03:10 BUTTONHOLER Total Distance Walked (Feet): ??850 Total Distance Walked (Meters): ??259.08 Total # of Times Stopped: ??0 Time Stopped (Seconds): ??0 Time Walked (Seconds): ??360 CALCULATIONS Estimated MPH: ??1.6 Estimated METs: ??2.23 % of Predicted Distance: ??72.67 Authorizing ProviderResult TypeResult StatusReid Yoseph Spivey M.D.CV STRESS PROCEDURESFinal Result * ECG 12 Lead (01/04/2025 2:47 PM BUTTONHOLER) Only the most recent of6 resultswithin the time period is included. ComponentValueRef RangeTest MethodAnalysis TimePerformed AtPathologist Signature Ventricular Rate ECG/Vym15CBLEGDOVD Qpcgybkc793zkBTUVDBUZ Pgediwpv315qmXFWOBC Sfvlogvs773gqRZJOYPF Erpkkegj478xjJRUZG Fyaz73xqdoxmzSMIMH [place]-74degreesMUSET Wave Zzlr19bgrjosuDPPERbercwnd (Source)Anatomical Location / Laterality Collection Method / VolumeCollection TimeReceived Time01/04/2025 2:47 PM BUTTONHOLER 01/04/2025 2:54 PM BUTTONHOLER Impressions MUSE - 01/04/2025 2:54 PM BUTTONHOLER Atrial-sensed ventricular-paced rhythm Sinus rhythm Premature atrial complexes When compared with ECG of 21-Dec-2024 17:26, QT has shortened Reviewed by HARRIET Solorio Narrative Procedure Note Benja Cotter M.D. - 01/04/2025 IMPRESSION: Atrial-sensed ventricular-paced rhythm Sinus rhythm Premature atrial complexes When compared with ECG of 21-Dec-2024 17:26, QT has shortened Reviewed by HARRIET Solorio Authorizing ProviderResult TypeResult Sandy Spivey M.D.ECG ORDERABLES Final ResultPerforming OrganizationAddressCity/State/ZIP CodePhone Number MUSE NA * NT-Pro B-Type Natriuretic Peptide (BNP) (01/04/2025 2:23 PM BUTTONHOLER) Only the most recent of5 resultswithin the time period is included. ComponentValueRef RangeTest MethodAnalysis TimePerformed AtPathologist Signature NT-Pro EBJ641<=540 pg/mL01/04/2025 3:29 PM CSTDTLComment: NT-proBNP values less [...] Collection TimeReceived TimeBlood (Blood, Venous)01/04/2025 2:23 PM BUTTONHOLER 01/04/2025 2:45 PM BUTTONHOLER Narrative Authorizing ProviderResult TypeResult Sandy Spivey M.D.LAB BLOOD ADD-ONFinal ResultPerforming OrganizationAddressty/State/ZIP CodePhone Number [facility] [address] [place] [address], [place] DTL [facility] [address] [place] [address] * (ABNORMAL) CBC with Differential, Blood (01/04/2025 2:23 PM BUTTONHOLER) Only the most recent of17 resultswithin the time period is included. ComponentValueRef RangeTest MethodAnalysis TimePerformed AtPathologist Signature Wmtykaougd92.7(L)13.2 - 16.6 g/dL01/04/2025 2:56 PM QGIFXIEduxtiedce59.838.3 - 48.6 %01/04/2025 2:56 PM CSTDTLErythrocytes4.584.35 - 5.65 x10(12)/L103/06/2024 2:56 PM FCAFTNWBX39.978.2 - 97.9 fL01/04/2025 2:56 PM CSTDTLRBC Distrib Width 17.1(H)11.8 - 14.5 %01/04/2025 2:56 PM CSTDTLPlatelet Ealcz951173 - 317 x10(9)/L 01/04/2025 2:56 PM CSTDTLLeukocytes9.63.4 - 9.6 x10(9)/L103/06/2024 2:56 PM BUTTONHOLER DTLNeutrophils8.15(H)1.56 - 6.45 x10(9)/L103/06/2024 2:56 PM CSTDHPMLymphocytes 0.63(L)0.95 - 3.07 x10(9)/L103/06/2024 2:56 PM CSTDTLMonocytes0.700.26 - 0.81 x10(9)/L103/06/2024 2:56 PM CSTDTLEosinophils0.110.03 - 0.48 x10(9)/L103/06/2024 2:56 PM CSTDTLBasophils0.040.01 - 0.08 x10(9)/L103/06/2024 2:56 PM CSTDTLSpecimen (Source)Anatomical Location / LateralityCollection Method / VolumeCollection TimeReceived TimeBlood (Blood, Venous)01/04/2025 2:23 PM CST01/04/2025 2:45 PM BUTTONHOLER Narrative Authorizing ProviderResult TypeResult StatusReid Yoseph Spivey M.D.LAB BLOOD ADD-ONFinal ResultPerforming OrganizationAddressCity/State/ZIP CodePhone Number [facility] [address] [place] [address], [place] DTL [facility] [address] [place] [address] [place] [address] [place] [address] * (ABNORMAL) Comprehensive Metabolic Panel (01/04/2025 2:23 PM BUTTONHOLER) Only the most recent of2 resultswithin the time period is included. ComponentValueRef RangeTest MethodAnalysis TimePerformed AtPathologist Signature Potassium, S3.83.6 - 5.2 mmol/L103/06/2024 3:29 PM CSTDTLSodium, L652944 - 145 mmol/L103/06/2024 3:29 PM CSTDTLChloride, S9898 - 107 mmol/L103/06/2024 3:29 PM CSTDTLBicarbonate, S2922 - 29 mmol/L103/06/2024 3:29 PM CSTDTLAnion Lkq850 - 15 01/04/2025 3:29 PM CSTDTLBUN (Blood [...] Venous) 01/04/2025 2:23 PM CST01/04/2025 2:45 PM BUTTONHOLER Narrative Authorizing ProviderResult TypeResult StatusRejaylyn Spivey M.D.LAB BLOOD ADD-ONFinal ResultPerforming OrganizationAddressCity/State/ZIP CodePhone Number [facility] [address] [place] [address], [facility] DTL [facility] [address] [place] [address] * Pulmonary Function Tests (01/04/2025 8:30 AM BUTTONHOLER)ComponentValueRef RangeTest MethodAnalysis TimePerformed AtPathologist SignaturePostFVC3.18L103/06/2024 2:31 PM CSTMAYO SENTRY RAAUGImrmUPK16.60L103/06/2024 2:31 PM CSTMAYO SENTRY SUITEFEV1/FVC POST81.84%01/04/2025 2:31 PM CSTMAYO SENTRY SUITEFEF 25-75 % POST2.96L/01/04/2025 2:31 PM CSTMAYO SENTRY SUITEPEF POST9.69L/01/04/2025 2:31 PM CSTMAYO SENTRY SUITEPIF POST7.31L/01/04/2025 2:31 PM CSTMAYO SENTRY SUITEPost FEF50/RFJ8478.05%01/04/2025 2:31 PM CSTMAYO SENTRY SUITEFET POST 10.69gre8203/06/2024 2:31 PM CSTMAYO SENTRY EFTCYDwwmvXkpz53.001/min01/04/2025 2:31 PM CSTMAYO SENTRY SUITEFVC3.07L103/06/2024 2:31 PM CSTMAYO SENTRY SUITE FEV12.58L103/06/2024 2:31 PM CSTMAYO SENTRY SUITEFEV1/FVC83.87%01/04/2025 2:31 PM CSTMAYO SENTRY FFQXRAQI36-72%3.17L/01/04/2025 2:31 PM CSTMAYO SENTRY SUITE PEF PRE9.68L/s11 2:31 PM [facility] SUITEPIF PRE8.07L/s11 2:31 PM [facility] SUITEPre FEF50/DGY5207.57%01/04/2025 2:31 PM [facility] SUITEFET PRE10.92umm6603/06/2024 2:31 PM [facility] SUITEDLCO7.94 ml/(min*mmHg)01/04/2025 2:31 PM [facility] SUITEDLCOc8.48ml/(min*mmHg) 01/04/2025 2:31 PM [facility] XKCZQBM55.50g(Hb)/dL01/04/2025 2:31 PM BUTTONHOLER [facility] SUITEPre % Pred [place] SINGLE BREATH4.32L103/06/2024 2:31 PM [facility] SUITETLC4.69L103/06/2024 2:31 PM [facility] Pre2.21L 01/04/2025 2:31 PM [facility] SUITERV1.42L103/06/2024 2:31 PM [facility] SUITERV % TLC PRE30.18%01/04/2025 2:31 PM [facility] SUITESUBSTANCE DJHHRilhpgffk77/21/2025 2:31 PM [facility] SUITESpecimen (Source) Anatomical Location / LateralityCollection Method / VolumeCollection Time Received Time01/04/2025 8:30 AM BUTTONHOLER Impressions [facility] - 01/04/2025 2:31 PM BUTTONHOLER Abnormal. Mild restriction with no immediate bronchodilator [...] M.D.PFT ORDERABLES Final ResultPerforming OrganizationAddressCity/State/ZIP CodePhone Number LAGRANGE SENT SUITE NA * CT Chest without IV Contrast (01/04/2025 8:23 AM BUTTONHOLER) Only the most recent of3 resultswithin the time period is included. Anatomical RegionLateralityModalityChest, Thoracic RST LOS, Thoracic ARZ LOS, Thoracic FLA LOSN/AComputed Tomography, Computed TomographySpecimen (Source) Anatomical Location / LateralityCollection Method / VolumeCollection Time Received Time Impressions 01/04/2025 8:47 AM BUTTONHOLER 1. 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 2. Sequelae of previous granulomatous infection. Narrative 01/04/2025 8:47 AM BUTTONHOLER EXAM: CT CHEST WITHOUT IV CONTRAST COMPARISON: [...] previous granulomatous infection. Authorizing ProviderResult TypeResult StatusReid oYseph Spivey M.D.IM CT PROCEDURESFinal Result * (ABNORMAL) Basic Metabolic Panel (12/27/2024 8:57 AM BUTTONHOLER) Only the most recent of18 resultswithin the time period is included. ComponentValueRef RangeTest MethodAnalysis TimePerformed AtPathologist Signature Potassium, S4.13.6 - 5.2 mmol/L102/27/2024 11:01 AM CSTDTLSodium, Q301855 - 145 mmol/L102/27/2024 11:01 AM CSTDTLChloride, S94(L)98 - 107 mmol/L102/27/2024 11:01 AM CSTDTLBicarbonate, S2522 - 29 mmol/L102/27/2024 11:01 AM CSTDTLAnion Gap16(H)7 - 15102/27/2024 11:01 AM CSTDTLBUN (Blood Urea Nitrogen), S38(H)8 - 24 mg/dL 12/27/2024 11:01 AM CSTDTLCreatinine1.57(H)0.74 - 1.35 mg/dL12/27/2024 11:01 AM CSTDTLEstimated GFR (eGFR)42(L)>=60 mL/min/BSA12/27/2024 11:01 AM CSTDTLComment: Estimated GFR calculated using the 2020 CKD_EPI creatinine equation. Calcium, Total, S8.5(L)8.8 - 10.2 mg/dL12/27/2024 11:01 AM CSTDTLGlucose, S8670 - 140 mg/dL12/27/2024 11:01 AM CSTDTLSpecimen (Source)Anatomical Location / LateralityCollection Method / VolumeCollection TimeReceived TimeBlood (Blood, Venous)12/27/2024 8:57 AM CST12/27/2024 10:14 AM BUTTONHOLER Narrative Authorizing ProviderResult TypeResult StatusBechani Vazquez P.A.-C.LAB BLOOD ADD-ONFinal ResultPerforming OrganizationAddressCity/State/ZIP CodePhone Number [facility] [address] [place] [address], [place] DTL [facility] [address] [place] [address] * (ABNORMAL) Renal Function Panel (12/25/2024 8:49 PM BUTTONHOLER) Only the most recent of2 resultswithin the time period is included. ComponentValueRef RangeTest MethodAnalysis TimePerformed AtPathologist Signature Potassium, S4.13.6 - 5.2 mmol/L102/25/2024 10:08 PM CSTDTLSodium, N634655 - 145 mmol/L102/25/2024 10:08 PM CSTDTLChloride, S92(L)98 - 107 mmol/L102/25/2024 10:08 PM CSTDTLBicarbonate, S2922 - 29 mmol/L102/25/2024 10:08 PM CSTDTLAnion Zvo332 - 15102/25/2024 10:08 PM CSTDTLBUN (Blood Urea Nitrogen), S31(H)8 - 24 mg/dL 12/25/2024 10:08 PM CSTDTLCreatinine1.69(H)0.74 - 1.35 mg/dL12/25/2024 10:08 PM CSTDTLEstimated GFR (eGFR)39(L)>=60 mL/min/BSA12/25/2024 10:08 PM CSTDTLComment: Estimated GFR calculated using the 2020 CKD_EPI creatinine equation. Calcium, Total, S9.28.8 - 10.2 mg/dL12/25/2024 10:08 PM CSTDTLGlucose, X82601 - 140 mg/dL12/25/2024 10:08 PM CSTDTLAlbumin, S3.83.5 - 5.0 g/dL12/25/2024 10:08 PM CSTDTLPhosphorus (Inorganic), S4.42.5 - 4.5 mg/dL12/25/2024 10:08 PM CSTDTL Specimen (Source)Anatomical Location / LateralityCollection Method / Volume Collection TimeReceived TimeBlood (Blood, Venous)12/25/2024 8:49 PM BUTTONHOLER 12/25/2024 9:20 PM BUTTONHOLER Narrative Authorizing ProviderResult TypeResult StatusIliana Vzaquez P.A.-C.LAB BLOOD ADD-ONFinal ResultPerforming OrganizationAddressCity/State/ZIP CodePhone Number [facility] [address] [place] [address], [place] [address] * Magnesium (12/25/2024 8:49 PM BUTTONHOLER) Only the most recent of5 resultswithin the time period is included. ComponentValueRef RangeTest MethodAnalysis TimePerformed AtPathologist Signature Magnesium, S2.31.7 - 2.3 mg/dL12/25/2024 10:08 PM CSTDTLSpecimen (Source) Anatomical Location / LateralityCollection Method / VolumeCollection Time Received TimeBlood (Blood, Venous)12/25/2024 8:49 PM CST12/25/2024 9:20 PM BUTTONHOLER Narrative Authorizing ProviderResult TypeResult StatusIliana Vazquez P.A.-C.LAB BLOOD ADD-ONFinal ResultPerforming OrganizationAddressCity/State/ZIP CodePhone Number [facility] [address] [place] [address], [place] [address] * US Kidneys Bilateral with Bladder (12/24/2024 10:13 AM BUTTONHOLER)Anatomical Region LateralityModalityAbdomen, Renal, Ultrasound RST LOS, Ultrasound ARZ LOS, Ultrasound FLA LOSBilateralUltrasoundSpecimen (Source)Anatomical Location / LateralityCollection Method / VolumeCollection TimeReceived Time Impressions 12/24/2024 10:40 AM BUTTONHOLER 1. Normal kidneys. 2. Diffuse hepatic steatosis. Narrative 12/24/2024 10:40 AM BUTTONHOLER EXAM: US KIDNEYS BILATERAL WITH BLADDER HISTORY: [...] 2. Diffuse hepatic steatosis. Authorizing ProviderResult TypeResult StatusMickita Mar P.A.-C., P.A. IM US PROCEDURESFinal Result * Dipstick, Urine (12/24/2024 9:52 AM BUTTONHOLER) Only the most recent of3 resultswithin the time period is included. ComponentValueRef RangeTest MethodAnalysis TimePerformed AtPathologist Signature Hemoglobin, QL, TAavvmvpxNbxhpuzn96/10/2025 12:01 PM CSTDTLLeukocyte Esterase, U JxtryraiDqszohep43/10/2025 12:01 PM CSTDTLNitrite, YZoezxjgcWxaouuof49/10/2025 12:01 PM CSTDTLKetone, UNegativeNegative mg/dL12/24/2024 12:01 PM CSTDTLGlucose, UNegativeNegative mg/dL12/24/2024 12:01 PM CSTDTLSpecimen (Source)Anatomical Location / LateralityCollection Method / VolumeCollection TimeReceived TimeUrine 12/24/2024 9:52 AM CST12/24/2024 11:29 AM BUTTONHOLER Narrative Authorizing ProviderResult TypeResult StatusMickita Mar P.A.-C., P.A. LAB URINE ORDERABLESFinal ResultPerforming OrganizationAddressCity/State/ZIP CodePhone Number [facility] [address] [place], [place] [address] [address] [place] [address] * Sodium, Random, Urine (12/24/2024 9:52 AM BUTTONHOLER)ComponentValueRef RangeTest MethodAnalysis TimePerformed AtPathologist SignatureSodium, Random, G54agpb/L 12/24/2024 12:41 PM CSTDTLComment: ----REFERENCE VALUE---- Random urine sodium may be interpreted in conjunction with serum sodium, using both values to calculate fractional excretion of sodium. Specimen (Source)Anatomical Location / LateralityCollection Method / Volume Collection TimeReceived TimeUrine (Urine, Midstream)12/24/2024 9:52 AM BUTTONHOLER 12/24/2024 11:29 AM BUTTONHOLER Narrative Authorizing ProviderResult TypeResult StatusMickita Nieves.A.-C., P.A. LAB URINE ORDERABLESFinal ResultPerforming OrganizationAddressCity/State/ZIP CodePhone Number [facility] [address] [place], [place] [phone] [place] [address] [address] [place] [address] * Microscopic Automated (12/24/2024 9:52 AM BUTTONHOLER) Only the most recent of3 resultswithin the time period is included. ComponentValueRef RangeTest MethodAnalysis TimePerformed AtPathologist Signature KuprxoawjrIhmkcx82/10/2025 12:01 PM CSTDTLRBCNone Seen<3 /hpf12/24/2024 12:01 PM CSTDTLWBCNone Seen/hpf12/24/2024 12:01 PM CSTDTLComment: ----REFERENCE VALUE---- <4 (Males) <11 (Females) Specimen (Source)Anatomical Location / LateralityCollection Method / Volume Collection TimeReceived FdztDvqvx51/10/2025 9:52 AM CST12/24/2024 11:29 AM BUTTONHOLER Narrative Authorizing ProviderResult TypeResult StatusMarietta Nieves.A.-C., P.A. LAB URINE ORDERABLESFinal ResultPerforming OrganizationAddressCity/State/ZIP CodePhone Number [facility] [address] [place] [address] * pH, Urine (12/24/2024 9:52 AM BUTTONHOLER) Only the most recent of3 resultswithin the time period is included. ComponentValueRef RangeTest MethodAnalysis TimePerformed AtPathologist Signature pH, U5.84.5 - 8.011 12:27 PM CSTDTLSpecimen (Source)Anatomical Location / LateralityCollection Method / VolumeCollection TimeReceived TimeUrine 12/24/2024 9:52 AM CST12/24/2024 11:29 AM BUTTONHOLER Narrative Authorizing ProviderResult TypeResult StatusMarietta Mar P.A.-C., P.A. LAB URINE ORDERABLESFinal ResultPerforming OrganizationAddressCity/State/[place] [address] * Osmolality, Urine (12/24/2024 9:52 AM BUTTONHOLER) Only the most recent of3 resultswithin the time period is included. ComponentValueRef RangeTest MethodAnalysis TimePerformed AtPathologist Signature Osmolality, [id number] - 1150 mOsm/kg12/24/2024 12:27 PM CSTDTLSpecimen (Source) Anatomical Location / LateralityCollection Method / VolumeCollection Time Received ByiwNkfna53/10/2025 9:52 AM CST12/24/2024 11:29 AM BUTTONHOLER Narrative Authorizing ProviderResult TypeResult StatusMarietta Mar P.A.-C., P.A. LAB URINE ORDERABLESFinal ResultPerforming OrganizationAddressCity/State/[place] [address] * Creatinine, Random, Urine (12/24/2024 9:52 AM BUTTONHOLER)ComponentValueRef RangeTest MethodAnalysis TimePerformed AtPathologist SignatureCreatinine, Random, U5916 - 326 mg/dL12/24/2024 12:34 PM CSTDTLSpecimen (Source)Anatomical Location / LateralityCollection Method / VolumeCollection TimeReceived TimeUrine (Urine, Midstream)12/24/2024 9:52 AM CST12/24/2024 11:29 AM BUTTONHOLER Narrative Authorizing ProviderResult TypeResult StatusMickita Mar P.A.-C., P.A. LAB URINE ORDERABLESFinal ResultPerforming OrganizationAddressCity/State/ZIP CodePhone Number [facility] [address] [place] [address], [facility] [address] [place] [address] * Urinalysis, with Microscopic: Urine, Midstream (12/24/2024 9:52 AM BUTTONHOLER) Only the most recent of3 resultswithin the time period is included. ComponentValueRef RangeTest MethodAnalysis TimePerformed AtPathologist Signature SourceUrine, Urine, Iucmpqetq21/10/2025 11:29 AM CSTDTLColor, TCmckqz5812/24/2024 11:29 AM CSTDTLClarity, LTigmr1112/24/2024 11:29 AM CSTDTLProtein, U5<26 mg/dL 12/24/2024 12:34 PM CSTDTLProtein/Osmolality0.14<0.42 ratio12/24/2024 12:34 PM CSTDTLPredicted 24 HR Protein, U148<229 mg/24 h102/24/2024 12:34 PM CSTDTL Predicted Yahlo98-384uv/24 h102/24/2024 12:34 PM CSTDTLSpecimen (Source) Anatomical Location / LateralityCollection Method / VolumeCollection Time Received TimeUrine (Urine, Midstream)12/24/2024 9:52 AM CST12/24/2024 11:29 AM BUTTONHOLER Narrative Authorizing ProviderResult TypeResult StatusMarietta Mar P.A.-C., P.A. LAB URINE ORDERABLESFinal ResultPerforming OrganizationAddressCity/State/ZIP CodePhone Number [facility] [address] [place] [address], [facility] [address] [place] [address] * (TTE) 2D ECHO DOPPLER COLOR (12/22/2024 3:17 PM BUTTONHOLER)ComponentValueRef Range Test MethodAnalysis TimePerformed AtPathologist SignatureEjection Qcgndrrr21XW CV EIMSLV End-Diastolic Hfolenzz40NB CV EIMSLV End-Systolic Egndfvay21BV CV EIMSLeft ventricular stroke volume gmkel73SW CV EIMSCardiac Output7.17MC CV EIMSCardiac Index3.66MC CV EIMSTricuspid Annular S???0.15MC CV EIMSTR Vmax2.87 MC CV EIMSEstimated RA Pressure (Echo RAP)5MC CV EIMSRV Systolic Pressure (with Echo RAP)38MC CV EIMSAV mean nesmphga1PW CV EIMSAortic valve area2.3MC CV EIMSAortic Valve Dimensionless Index0.55MC CV EIMSMV mean wummsbbf2DW CV EIMSAortic Valve Systolic Peak Hkhyfzjp1GV CV EIMSAnatomical RegionLaterality ModalityEchocardiographySpecimen (Source)Anatomical Location / Laterality Collection Method / VolumeCollection TimeReceived Time12/22/2024 2:16 PM BUTTONHOLER Impressions 12/22/2024 3:35 PM BUTTONHOLER Echo performed at the patient's bedside. Echocardiogram [...] the Order-Level Documents. Narrative 12/22/2024 3:35 PM BUTTONHOLER For the complete report, see the Order-Level [...] Normalright ventricular systolic function. Right ventricular systolic mmHg (right atrial pressure of 5 mmHg). [...] CHAMBER INTERROGATION WITH PROGRAMMING (12/22/2024 11:12 AM BUTTONHOLER) ComponentValueRef RangeTest MethodAnalysis TimePerformed AtPathologist SignaturePacer DependentyesFOUNDATION LAB SYSTEMAnticoagulantOn Anticoagulant [facility] LAB SYSTEMDate Time Interrogation [id number] LAB SYSTEMImplantable Pulse Generator ManufacturerMedtronicFOUNDATION LAB SYSTEMImplantable Pulse Generator TypePacemakerFOUNDATION LAB SYSTEM Implantable Pulse Generator ModelAzure XT DR ESCOBAR [id number] LAB SYSTEM Implantable Pulse Generator Serial QhcipfBWK804379PAKKJCMSKMZ LAB SYSTEM Implantable Pulse Generator Implant [id number] LAB SYSTEMBattery Voltage3.010FOUNDATION LAB SYSTEMBattery [employer] MEMBER Trigger2.630FOUNDATION LAB SYSTEM Battery StatusOKFOUNDATION LAB SYSTEMBrady Statistic RA Percent Paced15.50 [facility] LAB SYSTEMBrady Statistic RV Percent Paced99.93FOUNDATION LAB SYSTEMAtrial Tachy Statistic AT/AF [place] Percent0.00FOUNDATION LAB SYSTEMLead Channel Sensing Intrinsic Amplitude0.800FOUNDATION LAB SYSTEMLead Channel Setting Sensing Sensitivity0.30FOUNDATION LAB SYSTEMLead Channel Impedance Hyzmr642SIEKHUVZIF LAB SYSTEMLead Channel Pacing Threshold Amplitude1.000 [facility] LAB SYSTEMLead Channel Pacing Threshold Pulse Width0.4FOUNDATION LAB SYSTEMLead Channel Measurements Date and Ynrs56954379XHFCDHTWGS LAB SYSTEM Lead Channel Setting Pacing Amplitude2.250FOUNDATION LAB SYSTEMLead Channel Setting Pacing Pulse Width0.4FOUNDATION LAB SYSTEMLead Channel Setting Sensing Sensitivity2.80FOUNDATION LAB SYSTEMLead Channel Impedance Jdoaq657ENUMMGBNEF LAB SYSTEMLead Channel Pacing Threshold Amplitude1.250FOUNDATION LAB SYSTEM Lead Channel Pacing Threshold Pulse Width0.4FOUNDATION LAB SYSTEMLead Channel Measurements Date and Laxw88415555KGZOCFLZMW LAB SYSTEMLead Channel Setting Pacing Amplitude2.500FOUNDATION LAB SYSTEMLead Channel Setting Pacing Pulse Width0.4FOUNDATION LAB SYSTEMBrady Setting Mode (NBG Code)DDDRFOUNDATION LAB SYSTEMVentricular chambers paced during TUNNEL DRIER OPERATOR pacing.RA/RVFOUNDATION LAB SYSTEM Shahid Setting Lower Rate Mlnyf05JTCXKJTMKA LAB SYSTEMBrady Setting AT Mode Switch Inpg964PZXFWEZBPX LAB SYSTEMBrady Setting Maximum Tracking Ccsv450 [facility] LAB SYSTEMBrady Setting Maximum Sensor Auqr985FWTSWXQANL LAB SYSTEM Shahid Setting PAV Pevmo045AIBKTUMYKN LAB SYSTEMBrady Setting MEGHAN Avutr768 [facility] LAB SYSTEMZone Setting Type CategoryVT MonitorFOUNDATION LAB SYSTEM Murj Rate 1167FOUNDATION LAB SYSTEMZone Setting StatusMonitorFOUNDATION LAB SYSTEMMurj Zone EP1SIVPLTLEVI LAB SYSTEMImplantable Lead ManufacturerMedtronic FOUNDATION LAB SYSTEMImplantable Lead Uymor8326P CapSure SPFOUNDATION LAB SYSTEMImplantable Lead LocationRight VentricleFOUNDATION LAB SYSTEMImplantable Lead Connection StatusConnectedFOUNDATION LAB SYSTEMImplantable Lead Serial [id number] LAB SYSTEMImplantable Lead Implant [id number] [facility] LAB SYSTEMImplantable Lead Special FunctionLead length: 52.00 cm [facility] LAB SYSTEMImplantable Lead ManufacturerMedtronicFOUNDATION LAB SYSTEMImplantable Lead Fqmfx8532S CapSure SPFOUNDATION LAB SYSTEMImplantable Lead LocationRight AtriumFOUNDATION LAB SYSTEMImplantable Lead Connection StatusConnectedFOUNDATION LAB SYSTEMImplantable Lead Serial GttqosZMZ955427V [facility] LAB SYSTEMImplantable Lead Implant [id number] LAB SYSTEMImplantable Lead Special FunctionLead length: 45.00 cmFOUNDATION LAB SYSTEMAnatomical RegionLateralityModalityOtherSpecimen (Source)Anatomical Location / LateralityCollection Method / VolumeCollection TimeReceived Time 12/23/2024 1:08 PM BUTTONHOLER Impressions 12/23/2024 1:08 PM BUTTONHOLER Encounter Impression: Title: Hospital Check * Patient was seen in hospital * Reason: pt admitted on Do with SOB. * Episodes: none * Presenting rhythm: LABORER PETROLEUM REFINERY @ 90 bpm, occ. PAC's that are not tracked due to falling into refractory * Underlying rhythm: NSR ??@90 bpm, CHB, cont. LABORER PETROLEUM REFINERY'ing @ 30 bpm * Heart Rate Histograms reviewed * Device Function and programmed parameters reviewed Additional Notes: Smart sync transmission from [facility] ED also evaluated, no anomalies found [...] hospital * Reason: pt admitted on Do with SOB. * Episodes: none * Presenting rhythm: LABORER PETROLEUM REFINERY @ 90 bpm, occ. PAC's that are not tracked dueto falling into refractory * Underlying rhythm: NSR @90 bpm, CHB, cont. LABORER PETROLEUM REFINERY'ing @ 30 bpm * Heart Rate Histograms reviewed * Device Function and programmed parameters reviewed Additional Notes: Smart sync transmission from [facility] ED also evaluated, no anomalies found [...] Arteries with IV Contrast (12/22/2024 1:17 AM BUTTONHOLER)Anatomical RegionLateralityModalityChest, Cardiovascular RST LOS, Thoracic ARZ LOS, Thoracic FLA LOSN/AComputed Tomography, Computed Tomography Specimen (Source)Anatomical Location / LateralityCollection Method / Volume Collection TimeReceived Time12/22/2024 1:15 AM BUTTONHOLER Impressions 12/22/2024 6:09 AM BUTTONHOLER 1. Negative for acute pulmonary embolism. 2. 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 ComponentValueRef RangeTest MethodAnalysis TimePerformed AtPathologist Signature Influenza A, PCR, Rapid, LCeqwlndxAtneyrgt52/08/2025 1:10 AM CSTSTMAInfluenza B, PCR, Rapid, DOxugcibfEpzjgpxl34/08/2025 1:10 AM CSTSTMASARS CoV-2, PCR, Rapid, MJwcusmhbdiWsidnrlagx97/08/2025 1:10 AM CSTSTMAInfl A/B, SARS CoV-2, PCR, Source Swab, Dqisksymzwh33/08/2025 12:47 AM CSTSTMASpecimen (Source)Anatomical Location / LateralityCollection Method / VolumeCollection TimeReceived TimeSwab (Nasopharynx)12/22/2024 12:36 AM CST12/22/2024 12:47 AM BUTTONHOLER Narrative Authorizing ProviderResult TypeResult StatusBrian Vaca M.D.LAB MICROBIOLOGY - GENERAL ORDERABLESFinal ResultPerforming OrganizationAddressCity/State/ZIP CodePhone Number [facility] [address] [place] [address], [place] [facility] [address] [place] [address] * (ABNORMAL) Troponin T, 2 Hour with 6 Hour Reflex, 5th Gen (12/21/2024 9:44 PM BUTTONHOLER) Only the most recent of4 resultswithin the time period is included. ComponentValueRef RangeTest MethodAnalysis TimePerformed AtPathologist Signature Troponin T, 2 hr, 5th gen53(H)<=15 ng/L102/21/2024 10:19 PM TZPZNFH4G Delta-2ng/L 12/21/2024 10:19 PM CSTSTMAComment:6 hour collection not indicated.2H Delta InterpNot Rbsoevhf61/07/2025 10:19 PM CSTSTMASpecimen (Source)Anatomical Location / LateralityCollection Method / VolumeCollection TimeReceived TimeBlood 12/21/2024 9:44 PM CST12/21/2024 9:57 PM BUTTONHOLER Narrative Authorizing ProviderResult TypeResult StatusMacy Strickland P.A.-C.LAB BLOOD TROPONINFinal ResultPerforming OrganizationAddressCity/State/[place] [address], [place] [address] * (ABNORMAL) Troponin T, Baseline with 2 Hour/6 Hour Reflex Biomarker Panel (12/21/2024 6:19 PM BUTTONHOLER) Only the most recent of4 resultswithin the time period is included. ComponentValueRef RangeTest MethodAnalysis TimePerformed AtPathologist Signature Troponin T, Baseline, 5th gen55(H)<=15 ng/L102/21/2024 6:48 PM CSTSTMASpecimen (Source)Anatomical Location / LateralityCollection Method / VolumeCollection TimeReceived TimeBlood (Blood, Venous)12/21/2024 6:19 PM CST12/21/2024 6:23 PM BUTTONHOLER Narrative Authorizing ProviderResult TypeResult Kathy Blanco D.O.LAB BLOOD TROPONIN Final ResultPerforming OrganizationAddressCity/State/ZIP CodePhone Number [facility] [address] [place] [address], [place] [address] * Patient Status (12/21/2024 6:19 PM BUTTONHOLER) Only the most recent of2 resultswithin the time period is included. ComponentValueRef RangeTest MethodAnalysis TimePerformed AtPathologist Signature O2 Flow2.0LL/min12/21/2024 6:23 PM QIRQZHEZyjasiBA54/07/2025 6:23 PM CSTSTMA Spont. breaths/dav756302/21/2024 6:23 PM CSTSTMASpecimen (Source)Anatomical Location / LateralityCollection Method / VolumeCollection TimeReceived TimeBlood 12/21/2024 6:19 PM CST12/21/2024 6:23 PM BUTTONHOLER Narrative Authorizing ProviderResult TypeResult StatusSebas Deleon M.D.LAB BLOOD NON ADD-ONFinal ResultPerforming OrganizationAddressCity/State/ZIP CodePhone Number [facility] [address] [place] [address], [place] [facility] [address] [place] [address] * (ABNORMAL) Blood Gas without Coox, Venous (12/21/2024 6:19 PM BUTTONHOLER) Only the most recent of2 resultswithin the time period is included. ComponentValueRef RangeTest MethodAnalysis TimePerformed AtPathologist Signature pO2, Venous, B19Not applicable mm Hg12/21/2024 6:26 PM CSTSTMApCO2, Venous, B53 (H)41 - 51 mm Hg12/21/2024 6:26 PM CSTSTMApH, Venous, B7.437.32 - 7.43 pH 12/21/2024 6:26 PM CSTSTMABase Excess, Venous, B11Not applicable mmol/L 12/21/2024 6:26 PM CSTSTMAHCO3, Venous, B35Not applicable mmol/L102/21/2024 6:26 PM CSTSTMASample Site, Venous, NBtslowlhg20/07/2025 6:23 PM CSTSTMASpecimen (Source)Anatomical Location / LateralityCollection Method / VolumeCollection TimeReceived TimeBlood (Blood, Venous)12/21/2024 6:19 PM CST12/21/2024 6:23 PM BUTTONHOLER Narrative Authorizing ProviderResult TypeResult StatusSebas Deleon M.D.LAB BLOOD NON ADD-ONFinal ResultPerforming OrganizationAddressCity/State/ZIP CodePhone Number [facility] [address] [place] [address], [place] [address] * (ABNORMAL) Prothrombin Time (PT) (12/21/2024 6:19 PM BUTTONHOLER) Only the most recent of3 resultswithin the time period is included. ComponentValueRef RangeTest MethodAnalysis TimePerformed AtPathologist Signature Prothrombin Time, P13.0(H)9.4 - 12.5 sec12/21/2024 6:29 PM CSTSTMAINR1.20.9 - 1.111 6:29 PM CSTSTMAComment: ----ADDITIONAL INFORMATION---- Standard intensity warfarin therapeutic range: 2.0 to 3.0 ?? High intensity warfarin therapeutic range: 2.5 to 3.5 Specimen (Source)Anatomical Location / LateralityCollection Method / Volume Collection TimeReceived TimeBlood (Blood, Venous)12/21/2024 6:19 PM BUTTONHOLER 12/21/2024 6:23 PM BUTTONHOLER Narrative Authorizing ProviderResult TypeResult StatusAlexandalexis Deleon M.D.LAB BLOOD ADD-ONFinal ResultPerforming OrganizationAddressCity/State/ZIP CodePhone Number [address] [address], [address] [address] * Telomere Length Measurement by Flow Cytometry and FISH (flowFISH) - Sent Out Lab (12/10/2024 12:24 AM CDT)ComponentValueRef RangeTest MethodAnalysis Time Performed AtPathologist SignatureFlow FISH, Telomere LengthSEE COMMENT 01/01/2025 9:15 AM CSTJHMDComment: For final report, select Lab-Send Out Lab Results hyperlink. Specimen (Source)Anatomical Location / LateralityCollection Method / Volume Collection TimeReceived TimeBlood (Blood, Venous)12/10/2024 12:24 AM CDT 12/10/2024 10:[address] [facility] - 01/01/2025 9:15 AM BUTTONHOLER Specimen Information: Specimen ID: [id number] Specimen Type: Blood Specimen Collection Start Date: 12/10/2024 12:24 AM Specimen Received Date: 12/10/2024 10:51 AM Specimen ID: [id number] Specimen Type: Blood Specimen Collection Start Date: 12/10/2024 12:24 AM Specimen Received Date: 12/10/2024 10:51 AM Authorizing ProviderResult TypeResult StatusNicole Burden M.D.LAB BLOOD NON ADD-ON Final ResultPerforming OrganizationAddressCity/State/ZIP CodePhone Number [facility] [address] [place] [address] [facility] [address] [place] [address] * (ABNORMAL) Hemoglobin A1c (12/09/2024 12:33 AM [...] BLOOD ADD-ON Final ResultPerforming OrganizationAddressCity/State/ZIP CodePhone Number [facility] [address] [place] [address], [facility] DTL [facility] [address] [place] [address] * ANCA (Antineutrophil Cytoplasmic Antibodies) Vasculitis Panel (12/08/2024 1:34 AM CDT)ComponentValueRef RangeTest MethodAnalysis TimePerformed AtPathologist SignatureMyeloperoxidase Ab, S<0.2<0.4 (Negative) U1 9:30 AM CDTSDSC Proteinase 3 Ab (PR3), S<0.2<0.4 (Negative) 12/08/2024 9:30 AM CDTSDSC Specimen (Source)Anatomical Location / LateralityCollection Method / Volume Collection TimeReceived TimeBlood (Blood, Venous)12/08/2024 1:34 AM CDT 12/08/2024 7:26 AM CDT Narrative Authorizing ProviderResult TypeResult StatusEllemacho Burden M.D.LAB BLOOD ADD-ON Final ResultPerforming OrganizationAddressCity/State/ZIP CodePhone Number [facility] [address] [place] [address] [facility] [address] [place] [address] * Antibody to Extractable Nuclear Antigen Evaluation (12/08/2024 1:34 AM CDT) ComponentValueRef RangeTest MethodAnalysis TimePerformed AtPathologist SignatureSS-A/Ro Ab, IgG, S<0.2<1.0 (Negative) 12/08/2024 9:29 AM CDTSDSCSS- B/La Ab, IgG, S<0.2<1.0 (Negative) 12/08/2024 9:30 AM CDTSDSCSm Ab, IgG, S <0.2<1.0 (Negative) 12/08/2024 9:29 AM CDTSDSCRNP Ab, IgG, S<0.2<1.0 (Negative) 12/08/2024 9:30 AM CDTSDSCScl 70 Ab, IgG, S<0.2<1.0 (Negative) U 12/08/2024 9:30 AM CDTSDSCJo 1 Ab, IgG, S<0.2<1.0 (Negative) 12/08/2024 9:30 AM CDTSDSCSpecimen (Source)Anatomical Location / LateralityCollection Method / VolumeCollection TimeReceived TimeBlood (Blood, Venous)12/08/2024 1:34 AM CDT 12/08/2024 7:26 AM CDT Narrative Authorizing ProviderResult TypeResult StatusEllemacho Burden M.D.LAB BLOOD ADD-ON Final ResultPerforming OrganizationAddressCity/State/ZIP CodePhone Number [facility] [address] [place] [address] [facility] [address] [place] [address] * Connective Tissue Diseases [place] (12/08/2024 1:34 AM CDT)ComponentValueRef RangeTest MethodAnalysis TimePerformed AtPathologist SignatureAntinuclear Ab, S0.3<=1.0 (Negative) U1 1:41 PM CDTSDSCComment: ----ADDITIONAL INFORMATION---- Method: Enzyme-linked immunoassay using HEp-2 nuclear extract supplemented with purified antigens. Cyclic Citrullinated Peptide Ab, S<15.6<20.0 (Negative) U1 1:47 PM CDT SDSCComment: Interpretation: Antibodies to CCP not detected. If clinical symptoms are strongly indicative for rheumatoid arthritis, suggest testing for Rheumatoid Factor, S (RHUT) and, if positive, Rheumatoid Factor Panel, S (RFPN), which includes differentiation of rheumatoid factor IgM and IgA isotypes. InterpretationSEE CWNFKON4812/08/2024 1:47 PM CDTSDSCComment: Tests for antibodies to dsDNA and ALTON antigens are not performed automatically unless the KRIS result is > or = 3.0 U. ??Studies performed at [facility] indicate that positive KRIS results <3.0 U are rarely accompanied by positive second order tests. Specimen (Source)Anatomical Location / LateralityCollection Method / Volume Collection TimeReceived TimeBlood (Blood, Venous)12/08/2024 1:34 AM CDT 12/08/2024 7:26 AM CDT Narrative Authorizing ProviderResult TypeResult StatusEllemacho Burden M.D.LAB BLOOD ADD-ON Final ResultPerforming OrganizationAddressCity/State/ZIP CodePhone Number [facility] [address] [place] [address] [facility] [address] [place] [address] * (1, 3) Sqfg-Z-Jkqqkd (Fungitell), Serum (12/07/2024 3:51 PM CDT)ComponentValue Ref RangeTest MethodAnalysis TimePerformed AtPathologist Signature(1, 3) Hvgi-L-Texztl, Ryzxboslekrj91<60 pg/mL pg/mL12/10/2024 7:19 AM CDTSDSC(1, 3) Uvdz-R-Qpxlsh, TeplvqzuvxgSceqpbwmYyrwuyeg10/27/2025 7:19 AM CDTSDSCComment: No (1, 3) Vukl-I-Gwmjtv detected. ?? This assay does not detect certain fungi, including Cryptococcus species, which produce very low levels of (1, 3) Rxnn-Y-Gypvej (BDG) and the Mucorales (e.g., Lichthemia, Mucor and Rhizopus), which are not known to produce BDG. Additionally, the yeast phase of Blastomyces dermatitidis produces little BDG and may not be detected by this assay. ----ADDITIONAL INFORMATION---- This assay was performed using the FDA-cleared Fungitell Assay ([facility], [place], [place], [place]), a kinetic EDYTA based on modification of the Limulus Amebocyte Lysate pathway. Specimen (Source)Anatomical Location / LateralityCollection Method / Volume Collection TimeReceived TimeBlood (Blood, Venous)12/07/2024 3:51 PM CDT 12/07/2024 8:25 PM CDT Narrative Authorizing ProviderResult TypeResult StatusBenbill Cerna M.D.LAB MICROBIOLOGY - BLOOD ORDERABLESFinal ResultPerforming OrganizationAddress City/State/ZIP CodePhone Number [facility] [address] [place] [address] [facility] [address] [place] [address] [place] [address] * [place] Swallow Function with Video and [...] Bui M.D., Ph.D.IMG FLUOROSCOPY PROCEDURESFinal Result * (ABNORMAL) Hepatic Function Panel (12/07/2024 6:00 [...] 9:11 AM CDT Narrative Authorizing ProviderResult TypeResult StatusNicole Burden M.D.LAB BLOOD ADD-ON Final ResultPerforming OrganizationAddressCity/State/[facility] [place] [address], [place] [address] * (ABNORMAL) CRP (C-Reactive Protein) (12/07/2024 6:00 AM CDT) Only the most recent of3 resultswithin the time period is included. ComponentValueRef RangeTest MethodAnalysis TimePerformed AtPathologist Signature C-Reactive Protein (CRP), S94.6(H)<5.0 mg/L1 6:46 PM CDTDTLSpecimen (Source)Anatomical Location / LateralityCollection Method / VolumeCollection TimeReceived TimeBlood (Blood, Venous)12/07/2024 6:00 AM CDT1 6:26 PM CDT Narrative Authorizing ProviderResult TypeResult StatusMelo Cerna M.D.LAB BLOOD ADD-ONFinal ResultPerforming OrganizationAddressCity/State/ZIP CodePhone Number [address] [address], [address] [address] * Lactate (12/07/2024 12:10 AM CDT) Only the most recent of2 resultswithin the time period is included. ComponentValueRef RangeTest MethodAnalysis TimePerformed AtPathologist Signature Lactate, P1.00.5 - 2.2 mmol/L1 1:12 AM CDTDTLSpecimen (Source) Anatomical Location / LateralityCollection Method / VolumeCollection Time Received TimeBlood (Blood, Venous)12/07/2024 12:10 AM CDT1 12:38 AM CDT Narrative Authorizing ProviderResult TypeResult StatusBrianna Bui M.D., Ph.D.LAB BLOOD NON ADD-ONFinal ResultPerforming OrganizationAddressCity/State/ZIP Code Phone Number [facility] [address] [place] [address], [facility] DTL [facility] [address] [place] [address] * (ABNORMAL) Troponin T, 6h, 5th Gen (12/06/2024 7:52 PM CDT) Only the most recent of2 resultswithin the time period is included. ComponentValueRef RangeTest MethodAnalysis TimePerformed AtPathologist Signature Troponin T, 6 hr, 5th gen58(H)<=15 ng/L1 8:16 PM QMIJRKB7Q Delta-15(A) ng/L1 8:16 PM ZPZYZSO9G Delta InterpChanging(A)12/06/2024 8:16 PM CDT STMAComment:Evaluate for acute myocardial injurySpecimen (Source)Anatomical Location / LateralityCollection Method / VolumeCollection TimeReceived TimeBlood 12/06/2024 7:52 PM CDT1 7:57 PM CDT Narrative Authorizing ProviderResult TypeResult StatusNydia Mueller M.D.LAB BLOOD TROPONINFinal ResultPerforming OrganizationAddressCity/State/ZIP CodePhone Number [facility] [address] [place] [address], [facility] STMA [facility] [address] [place] [address] * (ABNORMAL) Lactate for Sepsis with Reflex, POCT (12/06/2024 4:33 PM CDT) ComponentValueRef RangeTest MethodAnalysis TimePerformed AtPathologist SignatureLactate, POCT2.47(H)0.50 - 2.20 mmol/L1 4:42 PM CDTPCLX Specimen (Source)Anatomical Location / LateralityCollection Method / Volume Collection TimeReceived TimeBlood (Blood, Venous)12/06/2024 4:33 PM CDT 12/06/2024 4:33 PM CDT Narrative Authorizing ProviderResult TypeResult StatusSharona Osborne M.D.LAB POCT ORDERABLES - DEVICEFinal ResultPerforming OrganizationAddressCity/State/ZIP Code Phone Number [facility] [address] [place] [address], [place] PCLX [facility] P[facility] [address] [place] [address] * (ABNORMAL) Venous Blood Gas and Electrolytes CG8+, POCT (12/06/2024 4:32 PM CDT) Only the most recent of2 resultswithin the time period is included. ComponentValueRef RangeTest MethodAnalysis TimePerformed AtPathologist Signature Sample Site, PKGSJwhztunt96/23/2025 4:42 PM CDTPCLXComment: ----ADDITIONAL INFORMATION---- Performed at the Point of Care pH, Venous, POCT, B7.417.32 - 7.431 4:42 PM CDTPCSMComment: ----ADDITIONAL INFORMATION---- Performed at [...] at the Point of Care Glucose, POCT, J05053 - 140 mg/dL12/06/2024 4:42 PM CDTPCLXComment: ----ADDITIONAL INFORMATION---- Performed at the Point of Care Hematocrit, POCT, B41.038.3 - 48.6 %12/06/2024 4:42 PM CDTPCLXComment: ----ADDITIONAL INFORMATION---- Performed at the Point of Care Specimen (Source)Anatomical Location / LateralityCollection Method / Volume Collection TimeReceived TimeBlood (Blood, Venous)12/06/2024 4:32 PM CDT 12/06/2024 4:28 PM CDT Narrative Authorizing ProviderResult TypeResult Bj Osborne M.D.LAB POCT ORDERABLES - DEVICEFinal ResultPerforming OrganizationAddressCity/State/[facility] Code Phone Number [facility] [address] [place] [address], [facility] PCLX [facility] POC [address] [place] [address] PCSM [facility] POC [address] [place] [address] * Bacteria / Theresa Culture, Blood # 2 (12/06/2024 4:32 PM CDT) Only the most recent of4 resultswithin the time period is included. ComponentValueRef RangeTest MethodAnalysis TimePerformed AtPathologist Signature Bacteria/Theresa Culture, BloodNo growth after 5 days of incubation.12/11/2024 5:02 PM CDTDTLSpecimen (Source)Anatomical Location / LateralityCollection Method / VolumeCollection TimeReceived TimeBlood (Blood, Peripheral Draw)12/06/2024 4:32 PM CDT1 4:46 PM CDTComment:Specimen Source Site: Blood Narrative Authorizing ProviderResult TypeResult Bj Osborne M.D.LAB MICROBIOLOGY - GENERAL ORDERABLESFinal ResultPerforming OrganizationAddressCity/State/ZIP CodePhone Number [facility] [address] [place] [address], [facility] DTL [facility] [address] [place] [address] * Respiratory Panel, PCR, Nasopharyngeal (12/06/2024 4:28 PM CDT) Only the most recent of2 resultswithin the time period is included. ComponentValueRef RangeTest MethodAnalysis TimePerformed AtPathologist Signature Specimen SourceNASOPHARYNGEAL SWAB12/06/2024 7:24 PM CDTDTLAdenovirusUndetected Ofirjacosn14/23/2025 7:24 PM CDTDTLCoronavirus 229EUndetectedUndetected 12/06/2024 7:24 PM CDTDTLCoronavirus CME0NjnuyaisopEujjulgfgs87/23/2025 7:24 PM CDTDTLCoronavirus NL96QaiyoevbjmJjmxzxulbn90/23/2025 7:24 PM CDTDTLCoronavirus YO08NahdyurwqcWtvlkzwwnh97/23/2025 7:24 PM CDTDTLSARS Coronavirus-2Undetected Ngxwdiqwll34/23/2025 7:24 PM CDTDTLComment: SARS-CoV-2 RNA absent. This result does not rule out COVID-19 in the patient, as the sensitivity of the test depends on the timing of the specimen collection and the quality of the specimen. Result should be correlated with patient's history and clinical presentation. Human UywsedyiwaqzorpFbfuqexmcgLepxkdwlzq28/23/2025 7:24 PM CDTDTLHuman Rhinovirus/ CwlooncfgcaInudxhgtzrBgixnxeary87/23/2025 7:24 PM CDTDTLInfluenza A GrefwgibowZgmnxnjoax22/23/2025 7:24 PM CDTDTLInfluenza BUndetectedUndetected 12/06/2024 7:24 PM CDTDTLParainfluenza Virus 3HipsvljxrsRjkqnphcbc67/23/2025 7:24 PM CDTDTLParainfluenza Virus 1UclzzlibkcCbqkcwlzff27/23/2025 7:24 PM CDTDTL Parainfluenza Virus 4QnjyowyodcJkuounpguv77/23/2025 7:24 PM CDTDTLParainfluenza Virus 1CvxhmwmcasJelqrsdoqc56/23/2025 7:24 PM CDTDTLRespiratory Syncytial Virus, XIFBbvtrgbkdpGnwrzzkwrp37/23/2025 7:24 PM CDTDTLBordetella parapertussis SpliwjsgnxMxjutspeob61/23/2025 7:24 PM CDTDTLBordetella pertussisUndetected Jqnafvlcxd67/23/2025 7:24 PM CDTDTLChlamydia pneumoniaeUndetectedUndetected 12/06/2024 7:24 PM CDTDTLMycoplasma cneclhcdqiZqleexelzdAgzwldyutc35/23/2025 7:24 PM CDTDTLInterpretationThis assay is not predicted to detect SARS- coronavirus (CoV), or MERS-CoV. If SARS-CoV or MERS-CoV is suspected, coordinate testing through a local public health laboratory. 12/06/2024 7:24 PM CDTDTLComment: ----ADDITIONAL INFORMATION---- This assay is performed using the FDA-Cleared Old Line BankArray Respiratory Panel 2.1 (ApeniMED). Specimen (Source)Anatomical Location / LateralityCollection Method / Volume Collection TimeReceived TimeSwab (Nasopharynx)12/06/2024 4:28 PM CDT1 6:19 PM CDT Narrative Authorizing ProviderResult TypeResult StatusLajo Osborne M.D.LAB MICROBIOLOGY - GENERAL ORDERABLESFinal ResultPerforming OrganizationAddressCity/State/ZIP CodePhone Number [address] [address], [facility] [address] [address] * (ABNORMAL) Bacterial Culture, Aerobic + Susceptibility, [...] (MCG/ML) <=64 mcg/mL: Susceptible Authorizing ProviderResult TypeResult StatusSharona Osborne M.D.LAB MICROBIOLOGY - GENERAL ORDERABLESFinal ResultPerforming OrganizationAddressCity/State/ZIP CodePhone Number [facility] [address] [place] [address], [place] DTL [facility] [address] [place] [address] * Streptococcus pneumoniae Antigen, Urine (11/18/2024 6:51 PM CDT)ComponentValue Ref RangeTest MethodAnalysis TimePerformed AtPathologist Signature Streptococcus pneumoniae Ag, IFfxacbxvFfsihfdo45/06/2025 2:40 PM CDTSDSC Comment: Negative for pneumococcal pneumonia, suggesting no current or recent infection. ??Infection due to S. pneumoniae cannot be ruled out since the antigen present in the sample may be below detection limit of the test. ----ADDITIONAL INFORMATION---- This assay was performed using the FDA-cleared BinaxNOW Streptococcus pneumoniae Antigen test, a rapid immunochromatographic assay. Specimen (Source)Anatomical Location / LateralityCollection Method / Volume Collection TimeReceived TimeUrine (Urine, Midstream)11/18/2024 6:51 PM CDT 11/19/2024 1:08 PM CDT Narrative Authorizing ProviderResult TypeResult StatusRosemarie Lee P.A.-C.LAB MICROBIOLOGY - GENERAL ORDERABLESFinal ResultPerforming OrganizationAddress City/State/ZIP CodePhone Number [facility] [address] [place] [address] [facility] [address] [place] [address] [place] [address] * Legionella Antigen, Urine (11/18/2024 6:51 PM CDT)ComponentValueRef RangeTest MethodAnalysis TimePerformed AtPathologist SignatureLegionella Ag, UNegative Cazcsfqb45/06/2025 1:53 PM CDTSDSCComment: Negative for L. pneumophila serogroup 1 antigen, suggesting no recent or current infection. ??Infection due to Legionella cannot be ruled out since other serogroups and species may cause disease, antigen may not be present in urine in early infection, and the level of antigen present in the urine may be below the detection limit of the test. ----ADDITIONAL INFORMATION---- This assay was performed using the FDA-cleared BinaxNOW Legionella Urinary Antigen Test, a rapid immunochromatographic assay. Specimen (Source)Anatomical Location / LateralityCollection Method / Volume Collection TimeReceived TimeUrine (Urine, Midstream)11/18/2024 6:51 PM CDT 11/19/2024 1:18 PM CDT Narrative Authorizing ProviderResult TypeResult StatusRosemarie Lee P.A.-C.LAB MICROBIOLOGY - GENERAL ORDERABLESFinal ResultPerforming OrganizationAddress City/State/ZIP CodePhone Number [facility] [address] [place] [address] [facility] [address] [place] [address] [place] [address] * Phosphorus Inorganic (11/17/2024 8:32 PM CDT)ComponentValueRef RangeTest MethodAnalysis TimePerformed AtPathologist SignaturePhosphorus (Inorganic), S 3.32.5 - 4.5 mg/dL11/17/2024 9:44 PM CDTDTLSpecimen (Source)Anatomical Location / LateralityCollection Method / VolumeCollection TimeReceived Time Blood (Blood, Venous)11/17/2024 8:32 PM CDT1 9:14 PM CDT Narrative Authorizing ProviderResult TypeResult StatusAlexander Abad, BPato., B.A.O.LAB BLOOD ADD-ONFinal ResultPerforming OrganizationAddressOhio [facility]/State/ZIP CodePhone Number [facility] [address] [place] [address], [place] DTL [facility] [address] [place] [address] * Staph aureus / MRSA, Nasal, PCR (11/17/2024 9:55 AM CDT)ComponentValueRef RangeTest MethodAnalysis TimePerformed AtPathologist SignatureStaphylococcus aureus, KXADwrfmpxhPwxvrnwl50/04/2025 11:53 AM CDTDTLMRSA, PCRNegativeNegative 11/17/2024 11:53 AM CDTDTLSpecimen (Source)Anatomical Location / Laterality Collection Method / VolumeCollection TimeReceived TimeSwab (Nares)11/17/2024 9:55 AM CDT1 10:13 AM CDT Narrative Authorizing ProviderResult TypeResult StatusGermán Gaspar M.D.LAB MICROBIOLOGY - GENERAL ORDERABLESFinal ResultPerforming OrganizationAddressCity/State/ZIP Code Phone Number [facility] [address] [place] [address], [facility] DTL [facility] [address] [place] [address] * Lactate, POCT (11/17/2024 8:38 AM CDT)ComponentValueRef RangeTest Method Analysis TimePerformed AtPathologist SignatureLactate, POCT0.990.50 - 2.20 mmol/L1 8:52 AM CDTPCLXSpecimen (Source)Anatomical Location / LateralityCollection Method / VolumeCollection TimeReceived TimeBlood (Blood, Venous)11/17/2024 8:38 AM CDT1 8:38 AM CDT Narrative Authorizing ProviderResult TypeResult StatusSajan Kim M.D.LAB POCT ORDERABLES - DEVICEFinal ResultPerforming OrganizationAddressCity/State/ZIP Code Phone Number [facility] [address] [place] [address], [facility] PCLX [facility] POC [address] [place] [address] * Lactate, B (11/16/2024 10:02 PM CDT)ComponentValueRef RangeTest MethodAnalysis TimePerformed AtPathologist SignatureLactate, B1.80.5 - 2.2 mmol/L1 10:21 PM CDTSTMASpecimen (Source)Anatomical Location / LateralityCollection Method / VolumeCollection TimeReceived TimeBlood (Blood, Venous)11/16/2024 10:02 PM CDT1 10:19 PM CDT Narrative Authorizing ProviderResult TypeResult StatusMacy Strickland P.A.-C.LAB BLOOD NON ADD-ONFinal ResultPerforming OrganizationAddressCity/State/ZIP CodePhone Number [facility] [address] [place] [address], [facility] STMA [facility] [address] [place] [address] * CAR CARDIAC DEVICE INTERROGATION (11/16/2024 9:11 AM CDT)ComponentValueRef RangeTest MethodAnalysis TimePerformed AtPathologist SignatureDate Time Interrogation [id number] LAB SYSTEMType Interrogation SessionRemoteFOUNDATION LAB SYSTEMImplantable Pulse Generator Contract Sheltered Workshop Supervisor MedtronicFOUNDATION LAB SYSTEMImplantable Pulse Generator TypePacemaker [facility] SYSTEMImplantable Pulse Generator ModelAzure XT DR ESCOBAR [id number] [facility] SYSTEMImplantable Pulse Generator Serial [id number] [facility] SYSTEMImplantable Pulse Generator Implant [id number] [facility] SYSTEMBattery Remaining Gcqpczqsk828.0moFOUNDATION LAB SYSTEM Battery Voltage3.010FOUNDATION LAB SYSTEMBattery [employer] Trigger2.625FOUNDATION LAB SYSTEMBattery StatusOKFOUNDATION LAB SYSTEMBrady Statistic RA Percent Paced37.20FOUNDATION LAB SYSTEMBrady Statistic RV Percent Paced99.94FOUNDATION LAB SYSTEMAtrial Tachy Statistic AT/AF [place] Percent0.00FOUNDATION LAB SYSTEMLead Channel Sensing Intrinsic Amplitude2.250FOUNDATION LAB SYSTEMLead Channel Setting Sensing Sensitivity0.30FOUNDATION LAB SYSTEMLead Channel Impedance Boxsy965XOACXXRNUI LAB SYSTEMLead Channel Pacing Threshold Amplitude 1.125FOUNDATION LAB SYSTEMLead Channel Pacing Threshold Pulse Width0.4 [facility] SYSTEMLead Channel Measurements Date and Tyll65343518PWZSHEBFND LAB SYSTEMLead Channel Setting Pacing Amplitude2.250FOUNDATION LAB SYSTEMLead Channel Setting Pacing Pulse Width0.4FCLAIBORNE COUNTY MEDICAL CENTERATION LAB SYSTEMLead Channel Sensing Intrinsic Ipngyntxh74.000FOUNDATION LAB SYSTEMLead Channel Setting Sensing Sensitivity2.80FOUNDATION LAB SYSTEMLead Channel Impedance Avulj784 [facility] SYSTEMLead Channel Pacing Threshold Amplitude1.000FOUNDATION LAB SYSTEMLead Channel Pacing Threshold Pulse Width0.4[facility] LAB SYSTEM Lead Channel Measurements Date and Tlyg05413604OLTFRTOAPD LAB SYSTEMLead Channel Setting Pacing Amplitude2.250FOUNDATION LAB SYSTEMLead Channel Setting Pacing Pulse Width0.4FOUNDATION LAB SYSTEMBrady Setting Mode (NBG Code)DDDR [facility] LAB SYSTEMBrady Setting Lower Rate Tfnbk55AENPHEJBPC LAB SYSTEM Shahid Setting AT Mode Switch Cmce438AWEBTQINKJ LAB SYSTEMBrady Setting Maximum Tracking Ljyi449CAXSJKOBKY LAB SYSTEMBrady Setting Maximum Sensor Bqlq539 FOUNDATION LAB SYSTEMBrady Setting PAV Gpwbb006CPAYMZAEYP LAB SYSTEMBrady Setting MEGHAN Ijrxn427FHCDGKRIMR LAB SYSTEMLead Channel Setting Sensing Polarity BipolarFOUNDATION LAB SYSTEMLead Channel Setting Sensing PolarityBipolar FOUNDATION LAB SYSTEMLead Channel Setting Pacing PolarityBipolarFOUNDATION LAB SYSTEMLead Channel Setting Pacing PolarityBipolarFOUNDATION LAB SYSTEMLead Channel Pacing Threshold PolarityBipolarFOUNDATION LAB SYSTEMLead Channel Pacing Threshold PolarityBipolarFOUNDATION LAB SYSTEMZone Setting Type CategoryAT/AFFOUNDATION LAB SYSTEMMurj Rate 1150FOUNDATION LAB SYSTEMMurj TherapiesSome Rx OffFOUNDATION LAB SYSTEMZone Setting StatusMonitorFOUNDATION LAB SYSTEMMurj Zone UL6ESDIYAGVPH LAB SYSTEMZone Setting Type CategoryVT FOUNDATION LAB SYSTEMMurj Rate 1167FOUNDATION LAB SYSTEMZone Setting Status ENABLEDFOUNDATION LAB SYSTEMMurj Zone PC9VMICACYWVK LAB SYSTEMImplantable Lead ManufacturerMedtronicFOUNDATION LAB SYSTEMImplantable Lead Lpoia8010D CapSure SPFOUNDATION LAB SYSTEMImplantable Lead LocationRight VentricleFOUNDATION LAB SYSTEMImplantable Lead Connection StatusConnectedFOUNDATION LAB SYSTEM Implantable Lead Serial LtxyxeXWF689458BRZFWWKUEKI LAB SYSTEMImplantable Lead Implant Nobb26367517STZDAMLWVU LAB SYSTEMImplantable Lead Special FunctionLead length: 52.00 cmFOUNDATION LAB SYSTEMImplantable Lead ManufacturerMedtronic FOUNDATION LAB SYSTEMImplantable Lead Cucth2004D CapSure SPFOUNDATION LAB SYSTEMImplantable Lead LocationRight AtriumFOUNDATION LAB SYSTEMImplantable Lead Connection StatusConnectedFOUNDATION LAB SYSTEMImplantable Lead Serial AltnupMRY332049XAVKETXHLMU LAB SYSTEMImplantable Lead Implant [id number] FOUNDATION LAB SYSTEMImplantable Lead Special FunctionLead length: 45.00 cm [facility] EM[facility]PART[facility] LAB SYSTEMAnatomical RegionLateralityModalityOtherSpecimen (Source) Anatomical Location / LateralityCollection Method / VolumeCollection Time Received Time11/20/2024 9:52 AM CDT Impressions 11/20/2024 9:52 AM CDT Encounter Impression: Title: Normal Remote: No Events * Normal Device Function * Alerts or events: None * Battery: OK, 8.67 yrs * Sensing, impedance and thresholds reviewed * Programmed parameters reviewed * Presenting rhythm: ASVP at 88 bpm ??with a PAC. * Heart Rate Histograms reviewed [...] pacingthreshold data was reviewed. Authorizing ProviderResult TypeResult StatusDavid Sona Cisneros M.D., Ph.D.CV IMPLANTABLE CARDIAC DEVICEFinal Result * (ABNORMAL) CBC without Differential (11/10/2024 10:58 PM CDT)ComponentValueRef RangeTest MethodAnalysis TimePerformed AtPathologist IswzoqhbpNsmbceqikn14.3 13.2 - 16.6 g/dL11/10/2024 11:46 PM YGPCJYZpbgewbnba02.338.3 - 48.6 % 11/10/2024 11:46 PM CDTDTLErythrocytes4.614.35 - 5.65 x10(12)/L11/10/2024 11:46 PM BGZIJOYFQ37.478.2 - 97.9 fL11/10/2024 11:46 PM CDTDTLRBC Distrib Width14.111.8 - 14.5 %11/10/2024 11:46 PM CDTDTLPlatelet Csrxe011502 - 317 x10(9)/L11/10/2024 11:46 PM EZNQUUBmmphtyxyb58.2(H)3.4 - 9.6 x10(9)/L 11/10/2024 11:46 PM CDTDTLSpecimen (Source)Anatomical Location / Laterality Collection Method / VolumeCollection TimeReceived TimeBlood (Blood, Venous) 11/10/2024 10:58 PM CDT11/10/2024 11:28 PM CDT Narrative Authorizing ProviderResult TypeResult StatusHeevens Yeboah P.A.-C., M.S.LAB BLOOD ADD-ONFinal ResultPerforming OrganizationAddressCity/State/ZIP CodePhone Number [facility] [address] [place] [address], [facility] DTL [facility] [address] [place] [address] * Glucose, POCT (11/10/2024 4:43 AM CDT)ComponentValueRef RangeTest Method Analysis TimePerformed AtPathologist SignatureGlucose, POCT, E50500 - 140 mg/dL11/10/2024 5:16 AM CDTPCLXSpecimen (Source)Anatomical Location / LateralityCollection Method / VolumeCollection TimeReceived TimeBlood 11/10/2024 4:43 AM CDT11/10/2024 5:16 AM CDT Narrative Authorizing ProviderResult TypeResult StatusUnknown ProviderLAB POCT ORDERABLES-MANUALFinal ResultPerforming OrganizationAddressCity/State/ZIP Code Phone Number [facility] [address] [place] [address], [place] PCLX [facility] POC [address] [place] [address] from Last 3 Months Insurance Advance Directives For more information, please contact: [phone] TypeDate RecordedPatient RepresentativeExplanationAdvance Nzfuhpyrhd31/20/2019 6:28 PMPOLST * DNR/DNI (Latest Code Status on File) Date ActivatedDate FlhllsdfmbrFbqqhavo98/8/2025 4:37 AM12/27/2024 4:43 PM QuestionAnswerCommentsDNR/DNI (Do Not Resuscitate/Do Not Intubate):* Discussed-Patient * DNR/DNI Date ActivatedDate ChckmbkiqrzUywipwlj54/23/2025 8:32 PM10 5:19 PM QuestionAnswerCommentsDNR/DNI (Do Not Resuscitate/Do Not Intubate):* Discussed-Patient * DNR/DNI Date ActivatedDate CjevvwikcvbQajttdzs25/4/2025 3:14 PM10 4:53 PMQuestion AnswerCommentsDNR/DNI (Do Not Resuscitate/Do Not Intubate):* Discussed-Patient * DNR/DNI Date ActivatedDate InactivatedComments11/09/2024 9:44 PM11/12/2024 4:12 PMQuestion AnswerCommentsDNR/DNI (Do Not Resuscitate/Do Not Intubate):* Discussed-Patient * DNR/DNI Date ActivatedDate InactivatedComments10/07/2023 9:30 AM10/11/2023 6:33 PMQuestion AnswerCommentsDNR/DNI (Do Not Resuscitate/Do Not Intubate):* Not discussed- patient's documented wishes verified Care Teams Team MemberRelationshipSpecialtyStart DateEnd Date Elsewhere, Pcp PCP - GeneralInternal Qjgutrze59/8/25
== END 2025-01-22 11:36 | disposition home or self-care (01) ==
LOC: NPINS 11:35
PROVIDERS: PCP Surgery; Visit Provider Family Medicine
DX: Z09 Encounter for follow-up examination after completed treatment for conditions other than malignant neoplasm (principal)
CPT/HCPCS: 81001